=== PATIENT | female | born 1985 | race African-American/Black ===

== ENCOUNTER 2016-03-25 10:38 | Emergency (ER) | payer BC ==
[~2016-03-25] VITALS: Wt 108.0 kg
[~2016-03-25 10:38] MED LIST: ACYC800T PO; AMLO-147 PO; APIX5TAB PO; APR50 PO; ASPI81TA3 PO; CARV12.598 PO; CARV6.25 PO; CLON0.2T5 PO; DEXT1DRO6 OP; FURO-110 PO; HYDR-906 PO; LACR35O OP; MED4DP PO; MELO7.5O2 PO; NIFE60TA7 PO; ONDA4TAB35 PO; TRAM50TA2 PO
[2016-03-25] MEDS ORDERED: HYDROmorphONE 1 MG/ML SYG IV STA (10:53)
[2016-03-25] MEDS ORDERED: ASPI325T4 PO (11:41)
[2016-03-25] MEDS ORDERED: CARV12.598 PO (11:43)
[2016-03-25 11:47] LABS: BASOPHILS % 0.4 % (0.0-2.0); EOSINOPHILS # 0.2 10^3/ul (0.0-0.5); HEMATOCRIT 25.6 % (37.0-47.0); HEMOGLOBIN 8.6 g/dl (12.0-16.0); LYMPHOCYTES % 22.2 % (15.0-51.0); MEAN CORPUSCULAR HEMOGLOBIN 32.6 pg (29.0-33.0); MEAN CORPUSCULAR HGB CONC 33.7 g/dl (32.0-37.0); MEAN CORPUSCULAR VOLUME 96.8 fl (82.0-101.0); MEAN PLATELET VOLUME 8.6 fl (7.4-10.4); MONOCYTE # 0.4 10^3/ul (0.3-0.9); MONOCYTES % 9.3 % (0.0-11.0); NEUTROPHIL # 2.8 10^3/ul (1.6-7.5); NEUTROPHILS % 63.1 % (39.0-77.0); PLATELET COUNT 286 10^3/UL (140-440); RED BLOOD COUNT 2.65 10^6/ul (4.20-5.40); RED CELL DISTRIBUTION WIDTH 16.3 % (11.5-14.5); UNCORRECTED WBC 4.4 10^3/ul (4.8-10.8); WHITE BLOOD COUNT 4.4 10^3/ul (4.8-10.8)
[2016-03-25 11:50] LABS: CONDITION 1; LH ANALYZER COMMENTS 1
[2016-03-25 11:52] LABS: CREATININE 5.85 mg/dl (0.44-1.00); INR 1.09; PROTIME 14.1 Sec (12.2-14.2); PT RATIO 1.1
[2016-03-25 11:53] LABS: CALCIUM 9.1 mg/dl (8.4-10.2); PARTIAL THROMBOPLASTIN TIME 44.5 Sec (25.0-35.0)
[2016-03-25] MEDS ORDERED: TOPI25CA PO (11:53)
[2016-03-25] MEDS ORDERED: IODIXANOL LOCM 100 ML BTL ONE (12:10)
[2016-03-25] MEDS ORDERED: SOD CHLORIDE 0.9% 100 ML ONE (12:10)
--- NOTE | 2016-03-25 13:19 | RADRPT ---
PROCEDURE: CT angiogram of the chest with contrast. CLINICAL INDICATION: Chest Pain.R/O Dissection TECHNIQUE: CT scan of the chest with contrast was performed on a multidetector high-resolution CT scan. The patient was scanned following the uncomplicated intravenous administration of 90 ml Visi paque 320. Coronal and sagittal reformatted images were obtained from the axial source images. Stand adrien CT angiogram of the chest with contrast protocols were performed. The total exam CTDI equals 9.34 mGy and the total exam DLP equals 573.63 mGy-cm. One or more of the following dose reduction techniques were used: - Automated exposure control. - Adjustment of the mA and/or kV according to patient size. Use of iterative reconstruction technique. COMPARISON: None. FINDINGS: There is a right Aris catheter extending inferior to the right clavicle and into the junction of the right subclavian vein and brachial cephalic vein with the tip at the level of the mi d superior vena cava. There is mild soft tissue edema in the right supraclavicular region. The aor ta is unremarkable without evidence of aneurysm or dissection. The right and left subclavian arteri es are unremarkable. The brachial cephalic artery is unremarkable. Those portions of the right left common carotid arteries visualized are unremarkable. Those portions of the vertebral arteries visu alized are unremarkable. The central pulmonary arteries are unremarkable. No evidence of thoracic l ymphadenopathy. The heart is of normal size without pericardial effusion. No evidence of pleural e ffusions. No evidence of pneumothorax. There is no evidence of acute lung infiltrates or pulmonary nodules bilaterally. There is a pedunculated 2.5 cm posterior lateral mid to superior left renal cysts. The patient status post previous cholecystectomy without evidence of biliary ductal dilation . Images of the upper abdomen are otherwise unremarkable. The osseous structures are unremarkable. IMPRESSION: 1.) Catheter extending inferior to the right clavicle with the tip at the level of the mid superior vena cava as described above. Mild soft tissue swelling in the right supraclavicular region but no localized hematoma or abscess demonstrated. 2. No evidence of aortic dissection or aneurysm. 3. Central pulmonary arteries are unremarkable. 4. No evidence of thoracic effusions or pneumothorax. 5. No evidence of pulmonary nodules or acute infiltrates. 6. Left renal cyst. 7. Status post previous cholecystectomy. RPTAT:AAJJ Josh Alonzo Physician Date Time Electronically viewed and signed by Josh Alonzo Physician on 03/25/2016 13:19 /
--- NOTE | 2016-03-25 13:27 | ERD ---
ER Documentation Chief Complaint Date/Time DATE: 03/25/16 TIME: 13:24 Chief Complaint R SIDE KAILA INSERTION 2 DAYS AGO AND PAIN AT SITE AND SWELLING. HPI 30-year-old female presents to the emergency department complaining of chest pain and pain in the right neck. Patient just recently had a Kaila catheter inserted on the right side. It appears that she had An attempt at a right IJ insertion and has a hematoma at that site. She also has a subclavian Kaila in place. She has been having pain at the insertion site of the right IJ as well as the right side of the chest. She states it radiates to her back. She reports no fevers chills. She reports no vomiting. She states that she has been getting dialysis without difficulty. She reports that the bruising in her neck has not significantly increased in size. She has no difficulty speaking. ROS All systems reviewed and are negative except as per history of present illness. Medications Home Meds Active Scripts Amlodipine Besylate* (Amlodipine Besylate*) 10 Mg Tablet, 10 MG PO DAILY, #30 TAB Prov:FARZANA LERMA DO 02/06/16 Reported Medications Topiramate* (Topamax*) 25 Mg Cap.sprink, 25 MG PO BID, CAP 03/25/16 Carvedilol* (Coreg*) 12.5 Mg Tablet, 12.5 MG PO BID, #60 TAB 03/25/16 Aspirin* (Aspirin*) 325 Mg Tablet, 325 MG PO DAILY, TAB 03/25/16 Apixaban* (Eliquis*) 5 Mg Tablet, 10 MG PO QAM, TAB 02/21/16 Nifedipine* (Nifedipine ER*) 60 Mg Tablet.sa, 60 MG PO DAILY, TAB.SA 01/08/16 Furosemide* (Lasix*) 20 Mg Tablet, 20 MG PO DAILY, TAB 01/08/16 Hydralazine Hcl* (Hydralazine Hcl*) 50 Mg Tab, 50 MG PO Q12 Y for HYPERTENSION, #60 TAB 01/08/16 Clonidine Hcl* (Clonidine Hcl*) 0.2 Mg Tablet, 0.2 MG PO Q8, TAB 01/08/16 Discontinued Reported Medications Dextran 70/Hypromellose (Artificial Tears) 1 Each Droperette, 1 EACH OP TID Y for DRY EYES 02/21/16 Carvedilol* (Coreg*) 12.5 Mg Tablet, 12.5 MG PO BID, #60 TAB 01/08/16 Aspirin* (Aspirin* Chew) 81 Mg Tab.chew, 81 MG PO DAILY, TAB.CHEW 01/08/16 Discontinued Scripts Mineral Oil/Lanolin Oil (Lacri-Lube) 3.5 Gm Oint, 1 APPLIC OP 5 TIMES DAILY, #1 EA Prov:MAHSA TURNERSTOLOS A. DO 02/21/16 Methylprednisolone* (Medrol* DOSE PACK) 4 Mg/Dose-Pack Tab.ds.pk, 4 MG PO . DIRECTED for 10 Days, PACKET Prov:SEANOSMAHSASTOLOS A. DO 02/21/16 Acyclovir* (Acyclovir*) 800 Mg Tablet, 800 MG PO QID for 7 Days, TAB Prov:ISABEL TURNERS A. DO 02/21/16 Tramadol HCl (Tramadol HCl) 50 Mg Tablet, 50 MG PO Q6, #20 TAB Prov:YUEISABELRylee A. DO 02/21/16 Tramadol HCl (Tramadol HCl) 50 Mg Tablet, 50 MG PO Q6 Y for PAIN, #14 TAB Prov:FARZANA LERMA DO 02/06/16 Hydrocodone/Acetaminophen (Hume 5-325 Tablet) 1 Each Tablet, 1 EACH PO Q6, #10 TAB Prov:FARZANA LERMA DO 02/06/16 Meloxicam* (Mobic*) 7.5 Mg/5 Ml Oral.susp, 7.5 MG PO DAILY for PAIN AND/OR INFLAMMATION, #15 ML Prov:YANNI DIALLO MD 08/22/15 Ondansetron Hcl* (Zofran* ODT) 4 mg -ODT Tab.disper, 4 MG PO Q6 Y for NAUSEA AND /OR VOMITING, #30 TAB Prov:ARTUR RICCI MD 06/20/15 Hydrocodone Bit-Acetaminophen (Hume) 5-325 Mg Tablet, 1 TAB PO q8h Y for PAIN, #1 TAB Prov:DEEPA TOPETE MD 04/30/15 Nifedipine* (Nifedipine ER*) 60 Mg Tablet.sa, 60 MG PO BID, #60 TAB.SA Prov:DEEPA TOPETE MD 04/30/15 Carvedilol* (Coreg*) 6.25 Mg Tablet, 6.25 MG PO BID, #60 TAB Prov:DEEPA TOPETE MD 04/30/15 Aspirin (Aspirin) 81 Mg Chew, 81 MG PO DAILY, #100 TAB Prov:DEEPA TOPETE MD 04/30/15 Allergies Allergies: Coded Allergies: No Known Allergy (Verified , 03/25/16) PMhx/Soc History of Surgery: Yes (L Arm AV Fistula,HD Cath Placed) Anesthesia Reaction: No Hx Neurological Disorder: No Hx Respiratory Disorders: No Hx Cardiac Disorders: Yes (HTN) Hx Psychiatric Problems: No Hx Miscellaneous Medical Probl: Yes (ESRD) Hx Alcohol Use: No Hx Substance Use: No Hx Tobacco Use: Yes Smoking Status: Current every day smoker FmHx Noncontributory for chief complaint Physical Exam Vitals Vital Signs Date Time Temp Pulse Resp B/P Pulse Ox O2 Delivery O2 Flow Rate FiO2 03/25/16 10:41 98.5 88 22 177/102 98 Physical Exam GENERAL: The patient is well developed and appropriate for usual state of health in no apparent distress HEENT: Pupils equal, round, and reactive to light. EOMI. There is no scleral icterus. NECK: C-spine is soft and supple, there is no meningismus. There is no cervical lymphadenopathy. There is a hematoma on the right side of the neck consistent with an area of likely insertion of an IJ line. No evidence of infection or abscess LUNGS: Clear to auscultation bilaterally. There are no rales, wheezes or rhonchi. There is a right subclavian tunneled Kaila catheter in place without evidence of infection or bleeding HEART: Regular rate and rhythm, no murmurs, clicks, rubs or gallops. ABDOMEN: Soft, non-tender, non-distended. There are bowel sounds in all four quadrants. No rebound or guarding. EXTREMITIES: There is no peripheral cyanosis or edema. No focal swelling or erythema. NEURO: The patient moves all four extremities with 5/5 strength. Cranial nerves II - XII are intact. Normal gait. Alert and oriented SKIN: There is no apparent rash or petechiae. HEME/LYMPHATIC: There is no evidence of excessive bruising or lymphedema. PSYCHIATRIC: The patient does not appear anxious or depressed. Result Diagram: 03/25/16 1125 03/25/16 1125 Results 24 hrs Laboratory Tests Test 03/25/16 11:25 Activated Partial Thromboplast Time 44.5Sec Anion Gap 18 Basophils # 0.010^3/ul Basophils % 0.4% Blood Morphology Comment Blood Urea Nitrogen 50mg/dl Calcium Level 9.1mg/dl Carbon Dioxide Level 27mmol/L Chloride Level 101mmol/L Creatinine 5.85mg/dl Eosinophils # 0.210^3/ul Eosinophils % 5.0% Glucose Level 116mg/dl Hematocrit 25.6% Hemoglobin 8.6g/dl INR International Normalized Ratio 1.09 Lymphocytes # 1.010^3/ul Lymphocytes % 22.2% Mean Corpuscular Hemoglobin 32.6pg Mean Corpuscular Hemoglobin Concent 33.7g/dl Mean Corpuscular Volume 96.8fl Mean Platelet Volume 8.6fl Monocytes # 0.410^3/ul Monocytes % 9.3% Neutrophils # 2.810^3/ul Neutrophils % 63.1% Nucleated Red Blood Cells # 0.010^3/ul Nucleated Red Blood Cells % 0.0/100WBC Platelet Count 67946^3/UL Potassium Level 4.0mmol/L Prothrombin Time 14.1Sec Prothrombin Time Ratio 1.1 Red Blood Count 2.6510^6/ul Red Cell Distribution Width 16.3% Sodium Level 142mmol/L White Blood Count 4.410^3/ul Current Medications Medications (Trade) Dose Ordered Sig/Belkys Route PRN Reason Start Time Stop Time Status Last Admin Dose Admin Hydromorphone HCl (Dilaudid) 1 mg ONCE STAT IV 03/25/16 10:53 03/25/16 10:54 DC 03/25/16 11:33 IV Flush 10 ml 10 ml STK-MED ONCE .ROUTE 03/25/16 12:10 03/25/16 12:11 DC Sodium Chloride (NS) 100 ml @ ud STK-MED ONCE .ROUTE 03/25/16 12:10 03/25/16 12:11 DC Iodixanol (Visipaque Locm) 100 ml STK-MED ONCE .ROUTE 03/25/16 12:10 03/25/16 12:11 DC Procedures/MDM Patient was taken to a room, seen and evaluated. Comfort measures were initiated. Diagnostic tests were ordered and reviewed. 3 LEAD RHYTHM STRIP: Normal sinus rhythm without ectopy EK lead EKG reviewed by myself: Normal Sinus Rhythm Normal [place] and intervals No ST elevation, depression, or T wave inversion Impression: Normal EKG RADIOLOGY: reviewed with the radiologist CONSULTATION: Dr. Sorenson was called, but no return phone call. REEVALUATION: Hematoma remained without evidence of infection or expansion. Patient remains clinically stable MEDICAL DECISION MAKIN-year-old female presents the emergency department with pain in her chest and neck after insertion of a Kaila catheter. This time, the CT scan does not demonstrate evidence of abscess or significant expanding hematoma or other significant vascular injury like dissection. All of which have been considered but ruled out. Patient appears to be otherwise clinically well. She is having pain there but is also has a significant chronic pain issue. At this time, she is otherwise clinically stable and seems to be appropriate for outpatient care. Departure Diagnosis: Primary Impression: Hematoma Condition: Stable Patient Instructions: Dialysis Access, Hematoma Additional Instructions: See your doctor for follow-up as discussed. Take a copy of your test results, if appropriate, to this follow-up visit. See your doctor or return here if your symptoms do not improve as expected. At any time, please return to the emergency department for any change or worsening in her symptoms. AMNA ALLEN Mar 25, 2016 13:27
--- NOTE | 2016-03-25 13:35 | RADRPT ---
PROCEDURE: CT neck with contrast. CLINICAL INDICATION: Chest Pain.R/O Dissection TECHNIQUE: CT scan of the neck with contrast was performed on a multidetector high-resolution CT s can. The patient was scanned following the uncomplicated intravenous administration of 90 ml Visipa que 320. Coronal and sagittal reformatted images were obtained from the axial source images. Standar d CT scan of the neck with contrast protocols were performed. The total exam CTDI equals 9.34 mGy and the total exam DLP equals 573.63 mGy-cm. One or more of the following dose reduction techniques were used: - Automated exposure control. - Adjustment of the mA and/or kV according to patient size. Use of iterative reconstruction technique. COMPARISON: CT angiogram of the chest done same day FINDINGS: A right Aris catheter is present extending caudal to the medial right clavicle and extending into the region of the junction of the right subclavian vein and brachial cephalic vein with the tip loc alized within the mid superior vena cava all on the CT angiogram of the chest. There is mild soft t issue edema involving the right supraclavicular region but no localized hematoma. There is no evide nce of extravasation of contrast. The right left jugular veins appear unremarkable. The right left common carotid, internal carotid and external carotid arteries appear unremarkable. The thyroid gl and enhances homogeneously without focal lesions. The parotid glands and submandibular glands are s ymmetrical without focal lesions. The nasopharynx, the nasopharynx, oropharynx and hypopharynx are unremarkable. The airway visualizes unremarkable. No evidence of cervical lymphadenopathy. The os seous structures are unremarkable. There is an air-fluid levels within the right sphenoid sinus. The remainder of the paranasal sinuses visualized are unremarkable. IMPRESSION: 1. Right Aris catheter endplates as described above. 2. Mild soft tissue edema involving the right supraclavicular soft tissues but no evidence of hemat elpidio or extravasation of contrast. 3. No evidence of cervical masses or lymphadenopathy. 4. Small air-fluid level within the right sphenoid sinus. 5. Recommend reference is CT angiogram of the chest study done the same day. RPTAT:AAJJ B Alonzo, Physician Date Time Electronically viewed and signed by Josh Alonzo Physician on 03/25/2016 13:35 BM/
[2016-03-25 13:41] VITALS: BP 174/100; PULSE 77; RESP 20; TEMP 98.5
== END 2016-03-25 13:43 | disposition home or self-care (01) ==
LOC: E/R 10:38
DX: T85.898A Other specified complication of other internal prosthetic devices, implants and grafts, initial encounter (principal); I12.0 Hypertensive chronic kidney disease with stage 5 chronic kidney disease or end stage renal disease; N18.6 End stage renal disease; F17.210 Nicotine dependence, cigarettes, uncomplicated; Y82.8 Other medical devices associated with adverse incidents; Z79.01 Long term (current) use of anticoagulants; Z79.82 Long term (current) use of aspirin; Z99.2 Dependence on renal dialysis
CPT/HCPCS: 36415; 70491; 71260; 80048; 85025; 85610; 85730; 96374; 99285; J1170; Q9967; Z7610

== ENCOUNTER 2016-04-15 01:36 | Emergency (ER) | payer SELFPAY ==
[~2016-04-15] VITALS: Ht 167.6 cm; Wt 107.5 kg
[~2016-04-15 01:36] MED LIST changes: -ACYC800T PO; +ASPI325T4 PO; -ASPI81TA3 PO; -CARV6.25 PO; -DEXT1DRO6 OP; -HYDR-906 PO; -LACR35O OP; -MED4DP PO; -MELO7.5O2 PO; -ONDA4TAB35 PO; +TOPI25CA PO; -TRAM50TA2 PO
[2016-04-15 01:40] VITALS: Ht 167.6 cm; Wt 107.5 kg
== END 2016-04-15 04:53 | disposition left against medical advice (07) ==
LOC: E/R 01:36
DX: Z53.21 Procedure and treatment not carried out due to patient leaving prior to being seen by health care provider (principal)

== ENCOUNTER 2016-12-07 07:33 | Inpatient (IN) | payer BC ==
[~2016-12-07] VITALS: Ht 165.1 cm; Wt 88.9 kg
[~2016-12-07 07:33] MED LIST changes: -APR50 PO; +HYDR-3672 PO
[2016-12-07] MEDS ORDERED: HYDROmorphONE 0.5 MG/0.5 ML SYG IV STA ×2 (08:13→11:12)
[2016-12-07] MEDS ORDERED: ONDANSETRON 4 MG INJ IV STA (08:13)
[2016-12-07] MEDS ORDERED: SOD CHLORIDE 0.9% 500 ML IV STA (08:13)
[2016-12-07] MEDS ORDERED: LINEZOLID 600 MG/D5W (PMX) 300 ML IVPB STA (08:13)
[2016-12-07] MEDS ORDERED: CEFEPIME 2GM/50 ML (PMX) 50 ML IVPB STA (08:13)
--- NOTE | 2016-12-07 08:29 | ERD ---
ER Documentation Chief Complaint Chief Complaint llq pain rad into pelvic area and lle, dialysis cath in l. groin area. HPI 31-year-old female history of end-stage renal disease on dialysis who presents to the emergency room with pain to the left groin site. The patient is a left groin tunneled Vas-Cath where she receives her dialysis. She notes over the past 24-48 hours the area has become firm, indurated and erythematous. The patient is describing 6 out of 10 throbbing pain to that area. She denies any fevers or chills, no chest pain or shortness of breath. ROS All systems reviewed and are negative except as per history of present illness. Medications Home Meds Reported Medications Labetalol Hcl* (Labetalol Hcl*) 100 Mg Tablet, 100 MG PO BID, TAB 12/07/16 Sevelamer Hcl* (Renagel*) 800 Mg Tablet, 800 MG PO WITH MEALS, TAB 12/07/16 Aspirin* (Aspirin* Chew) 81 Mg Tab.chew, 81 MG PO DAILY, TAB.CHEW 12/07/16 Topiramate* (Topamax*) 25 Mg Cap.sprink, 25 MG PO BID, CAP 03/25/16 Carvedilol* (Coreg*) 12.5 Mg Tablet, 12.5 MG PO BID, #60 TAB 03/25/16 Nifedipine* (Nifedipine ER*) 60 Mg Tablet.sa, 60 MG PO DAILY, TAB.SA 01/08/16 Furosemide* (Lasix*) 20 Mg Tablet, 20 MG PO DAILY, TAB 01/08/16 Hydralazine Hcl* (Hydralazine Hcl*) 50 Mg Tab, 50 MG PO Q12 Y for HYPERTENSION, #60 TAB 01/08/16 Clonidine Hcl* (Clonidine Hcl*) 0.2 Mg Tablet, 0.2 MG PO BID, TAB 01/08/16 Discontinued Reported Medications Aspirin* (Aspirin*) 325 Mg Tablet, 325 MG PO DAILY, TAB 03/25/16 Apixaban* (Eliquis*) 5 Mg Tablet, 10 MG PO QAM, TAB 02/21/16 Discontinued Scripts Amlodipine Besylate* (Amlodipine Besylate*) 10 Mg Tablet, 10 MG PO DAILY, #30 TAB Prov:FARZANA LERMA DO 02/06/16 Allergies Allergies: Coded Allergies: vancomycin (Verified Allergy, Mild, 12/07/16) PMhx/Soc History of Surgery: Yes (L Arm AV Fistula,HD Cath Placed) Anesthesia Reaction: No Hx Neurological Disorder: No Hx Respiratory Disorders: No Hx Cardiac Disorders: Yes (HTN) Hx Psychiatric Problems: No Hx Miscellaneous Medical Probl: Yes (ESRD) Hx Alcohol Use: No Hx Substance Use: No Hx Tobacco Use: Yes Smoking Status: Current every day smoker FmHx Family History: diabetes Physical Exam Vitals Vital Signs Date Time Temp Pulse Resp B/P Pulse Ox O2 Delivery O2 Flow Rate FiO2 12/07/16 10:34 83 18 175/91 99 Room Air 12/07/16 08:45 Nasal Cannula 2 12/07/16 07:41 99.2 86 20 167/93 98 Physical Exam General: Well developed, well nourished, no acute distress Head: Normocephalic, atraumatic. Eyes: Pupils equally reactive, EOM intact ENT: Moist mucous membranes Neck: Supple, no lymphadenopathy Respiratory: Lungs clear bilaterally, no distress Cardiovascular: RRR, no murmurs, rubs, or gallops Abdominal: Soft, non-tender, non-distended, no peritoneal signs : Deferred MSK: No edema, no unilateral swelling, 5/5 strength Neurologic: Alert and oriented, moving all extremities, normal speech, no focal weakness, no cerebellar signs Skin: The patient's a vascular catheter site to the right groin has surrounding induration and erythema and warmth and tenderness. No fluctuance, mild inguinal lymphadenopathy is palpated. Psych: Normal mood Result Diagram: 12/07/16 0913 12/07/16 0914 Results 24 hrs Laboratory Tests Test 12/07/16 09:13 12/07/16 09:14 White Blood Count 12.210^3/ul Red Blood Count 2.8310^6/ul Hemoglobin 8.1g/dl Hematocrit 25.6% Mean Corpuscular Volume 90.5fl Mean Corpuscular Hemoglobin 28.6pg Mean Corpuscular Hemoglobin Concent 31.6g/dl Red Cell Distribution Width 17.5% Platelet Count 74779^3/UL Mean Platelet Volume 11.2fl Neutrophils % 84.0% Lymphocytes % 4.3% Monocytes % 9.1% Eosinophils % 1.3% Basophils % 0.3% Nucleated Red Blood Cells % 0.0/100WBC Neutrophils # 10.210^3/ul Lymphocytes # 0.510^3/ul Monocytes # 1.110^3/ul Eosinophils # 0.210^3/ul Basophils # 0.010^3/ul Nucleated Red Blood Cells # 0.010^3/ul Prothrombin Time 14.5Sec Prothrombin Time Ratio 1.1 INR International Normalized Ratio 1.13 Activated Partial Thromboplast Time 30.8Sec Lactic Acid Level 0.7mmol/L Sodium Level 137mmol/L Potassium Level 4.4mmol/L Chloride Level 104mmol/L Carbon Dioxide Level 17mmol/L Anion Gap 20 Blood Urea Nitrogen 83mg/dl Creatinine 13.38mg/dl Glucose Level 91mg/dl Calcium Level 7.8mg/dl Total Bilirubin 0.0mg/dl Direct Bilirubin 0.00mg/dl Indirect Bilirubin 0.0mg/dl Aspartate Amino Transf (AST/SGOT) 17IU/L Alanine Aminotransferase (ALT/SGPT) 27IU/L Alkaline Phosphatase 74IU/L Troponin I 0.041ng/ml Total Protein 7.1g/dl Albumin 3.4g/dl Globulin 3.70g/dl Albumin/Globulin Ratio 0.91 Current Medications Medications (Trade) Dose Ordered Sig/Belkys Route PRN Reason Start Time Stop Time Status Last Admin Dose Admin Cefepime HCl (Maxipime 2gm/50 ml (Pmx)) 50 ml @ 100 mls/hr ONCE STAT IVPB 12/07/16 08:13 12/07/16 08:42 DC 12/07/16 09:21 Hydromorphone HCl (Dilaudid) 0.5 mg ONCE STAT IV 12/07/16 08:13 12/07/16 08:17 DC 12/07/16 08:50 Ondansetron HCl 4 mg 4 mg ONCE STAT IV 12/07/16 08:13 12/07/16 08:17 DC 12/07/16 08:51 Linezolid 300 ml @ 300 mls/hr ONCE STAT IVPB 12/07/16 08:13 12/07/16 09:12 DC 12/07/16 10:18 Sodium Chloride (NS) 500 ml @ 500 mls/hr Q1H STAT IV 12/07/16 08:13 12/07/16 09:12 DC 12/07/16 08:51 Procedures/MDM EKG, MONITORS, & DIAGNOSTIC IMAGING: EKG: I reviewed and interpreted a 12-lead EKG. Rhythm: Normal sinus rhythm Ectopy: None Intervals: No abnormalities ST segments: No elevations or depressions T waves: No contiguous inversions Chest x-ray: I reviewed and interpreted a 1 view of the chest Mediastinum: No enlargement Cardiac silhouette: No cardiomegaly Airspace: Clear lung ridley bilaterally without evidence of pneumothorax Bones: No evidence of fracture LAB INTERPRETATION: Leukocytosis, end-stage renal disease but no hyperkalemia MEDICAL DECISION MAKING: The patient on clinical exam very clearly has what appears to be localized cellulitis surrounding the vascular catheter site. The patient will require blood cultures empiric antibiotics. She will likely require replacement and removal of the vascular catheter. I will direct this with interventional radiology and the patient's metal trimmer. She has seen Dr. Knox in the past. The patient's clinical exam is not consistent with active bleeding, AV fistula or pseudoaneurysm. Inpatient imaging may be necessary but no emergent imaging in the ER is necessary for this site. Given the erythema warmth and tenderness this is more consistent with cellulitis. The patient is hemodynamically stable without fever in the emergency department. Sepsis screening will be initiated but I will be careful with fluids given the patient's end-stage renal disease and dialysis. I would not like to volume overload the patient. Verbalizes an allergy to vancomycin. ER COURSE: Blood cultures were taken and the patient was given linezolid and cefepime. Pain medication provided. Gentle fluids initiated. The patient does not meet SIRS criteria or severe sepsis criteria in the emergency department. The patient was evaluated by Dr. Knox who will arrange for ultrasound and possible replacement of vascular catheter As well as dialysis. I kept the patient and/or family informed of laboratory and diagnostic imaging results throughout the emergency room course. DISPOSITION PLAN: Medical surgical admission CONSULTATION: Accepting care team and consultations: I discussed the current laboratory data, diagnostic imaging and emergency care provided. Admitting team: Dr. Brian Admitting team indication: Insurance directed Consulting services: Crisis Mental Health Therapist Dr. Knox Departure Diagnosis: Primary Impression: Infection of vascular catheter Encounter type: initial encounter Qualified Code: T82.7XXA - Infection of vascular catheter, initial encounter Additional Impressions: End stage renal disease on dialysis Anemia Anemia type: unspecified type Qualified Code: D64.9 - Anemia, unspecified type Condition: Stable ARTUR RICCI, MD Dec 07, 2016 08:29
[2016-12-07] MEDS ORDERED: ASPI81TA3 PO (08:38)
[2016-12-07] MEDS ORDERED: SEVE800T10 PO (08:39)
[2016-12-07] MEDS ORDERED: LABE100T3 PO (08:40)
--- NOTE | 2016-12-07 08:56 | RADRPT ---
PROCEDURE: Chest x-ray CLINICAL INDICATION: Pain. TECHNIQUE: One-view frontal. COMPARISON: 06/20/2015 FINDINGS: The cardiac silhouette is normal. No infiltrates are noted. No hilar abnormalities are identified. No pneumothorax or pleural effusions are visualized. IMPRESSION: 1. No active cardiopulmonary changes. RPTAT: HGSG .Moiz Davila MD, MD Date Time Electronically viewed and signed by .Moiz Davila MD, MD on 12/07/2016 08:55 .G/
[2016-12-07 09:32] LABS: ABNORMAL IP MESSAGE 1; BASOPHILS % 0.3 % (0.0-2.0); EOSINOPHILS # 0.2 10^3/ul (0.0-0.5); EOSINOPHILS % 1.3 % (0.0-7.0); HEMATOCRIT 25.6 % (37.0-47.0); HEMOGLOBIN 8.1 g/dl (12.0-16.0); LYMPHOCYTES # 0.5 10^3/ul (0.8-2.9); LYMPHOCYTES % 4.3 % (15.0-51.0); MEAN CORPUSCULAR HEMOGLOBIN 28.6 pg (29.0-33.0); MEAN CORPUSCULAR HGB CONC 31.6 g/dl (32.0-37.0); MEAN CORPUSCULAR VOLUME 90.5 fl (82.0-101.0); MEAN PLATELET VOLUME 11.2 fl (7.4-10.4); MONOCYTE # 1.1 10^3/ul (0.3-0.9); MONOCYTES % 9.1 % (0.0-11.0); NEUTROPHIL # 10.2 10^3/ul (1.6-7.5); PLATELET COUNT 135 10^3/UL (140-415); RED BLOOD COUNT 2.83 10^6/ul (4.20-5.40); RED CELL DISTRIBUTION WIDTH 17.5 % (11.5-14.5); WHITE BLOOD COUNT 12.2 10^3/ul (4.8-10.8)
[2016-12-07 09:48] LABS: INR 1.13; PROTIME 14.5 Sec (12.2-14.2); PT RATIO 1.1
[2016-12-07 09:49] LABS: PARTIAL THROMBOPLASTIN TIME 30.8 Sec (25.0-35.0)
[2016-12-07 09:52] LABS: ALBUMIN 3.4 g/dl (3.3-4.9); ALBUMIN/GLOBULIN RATIO 0.91; CALCIUM 7.8 mg/dl (8.4-10.2); CREATININE 13.38 mg/dl (0.44-1.00); POTASSIUM 4.4 mmol/L (3.5-5.1); TOTAL PROTEIN 7.1 g/dl (6.1-8.1)
[2016-12-07 10:18] LABS: TROPONIN-I 0.041 ng/ml (0.00-0.12)
--- NOTE | 2016-12-07 10:53 | RADRPT ---
PROCEDURE: Ultrasound of the soft tissues of the left inguinal region. CLINICAL INDICATION: Painful lesion in the left inguinal region. Dialysis catheter and left femora l vein.. TECHNIQUE: High-resolution sonography of the left inguinal region at the site of the painful lesio n was performed in the axial and sagittal planes. COMPARISON: None FINDINGS: There is a dialysis catheter in the left inguinal region with surrounding fluid. The thickness of th e surrounding fluid is approximately 0.5 cm. There is no other fluid collection or mass. IMPRESSION: 1. Dialysis catheter in the left inguinal region. There is surrounding fluid with a thickness of ap proximately 0.5 cm. The fluid may be due to seroma, hematoma, or abscess. Clinical correlation advis ed. 2. Any further management regarding the painful lesion should be based on clinical grounds. RPTAT: QQ .Qasim Watkins MD, MD Date Time Electronically viewed and signed by .Qasim Watkins MD, MD on 12/07/2016 10:52 .R/
[2016-12-07] MEDS ORDERED: MAGNESIUM HYDROXIDE 30ML CUP PO PRN (11:00)
[2016-12-07] MEDS ORDERED: ONDANSETRON 4 MG INJ IV PRN (11:00)
[2016-12-07] MEDS ORDERED: NACL 0.9% 3 ML SYG IV SCH (11:00)
[2016-12-07] MEDS ORDERED: ACETAMINOPHEN 325 MG TAB PO PRN ×2 (11:00)
--- NOTE | 2016-12-07 12:12 | HP ---
Date/Time of Note Date/Time of Note DATE: 12/07/16 TIME: 12:08 Assessment/Plan VTE Prophylaxis VTE Prophylaxis Intervention: SCD's Assessment/Plan Assessment/Plan 31 yo F with ESRD on HD here for L groin pain, found to have HD line tunnel infection PLAN vascular surgery consult for line removal and placement of a new line empiric dapto (blood cultures in process, pt with vanc allergy) renal on consult for HD cont home meds HPI/ROS Admit Date/Time Admit Date/Time Hx of Present Illness CC L groin pain and swelling x 2 days HPI 31 yo F with ESRD on HD, HTN presents with pain in L groin x 2 days. No fevers/ chills. Reports discharge started from L groin earlier today. Line has been working well. PMH/Family/Social Social History lives in the community Smoking Status: Current every day smoker Exam/Review of Systems Vital Signs Vitals Vital Signs Date Time Temp Pulse Resp B/P Pulse Ox O2 Delivery O2 Flow Rate FiO2 12/07/16 12:01 87 18 155/98 98 Room Air 12/07/16 08:45 2 12/07/16 07:41 99.2 Exam Exam NAD EOMI MMM no mrg lungs clear abd soft no rashes no edema L HD groin site wrapped, +swelling along path of HD line in upper thigh, +1 cm aperture with purulent drainage in groin fold labs noted US with tunnel infection Labs Result Diagram: 12/07/1691212/07/16 0914 Medications Medications Current Medications Acetaminophen (Tylenol Tab) 650 mg Q6H PRN PO PAIN LEVEL 1-3 OR FEVER; Start 12/07/16 at 11:00 Acetaminophen/ Hydrocodone Bitart ([place] (5/325)) 1 tab Q6H PRN PO MODERATE PAIN LEVEL 4-6; Start 12/07/16 at 11:00 Docusate Sodium (Colace) 100 mg Q12H PRN PO CONSTIPATION; Start 12/07/16 at 11: 00 Magnesium Hydroxide (Milk Of Mag) 30 ml DAILY PRN PO CONSTIPATION; Start at 11:00 Bisacodyl (Dulcolax) 5 mg DAILY PRN PO CONSTIPATION; Start 12/07/16 at 11:00 Enoxaparin Sodium (Lovenox) 30 mg DAILY@12 SC ; Start 12/07/16 at 12:00 Aspirin (Aspirin) 81 mg DAILY PO ; Start 12/08/16 at 09:00 Carvedilol (Coreg) 12.5 mg BID PO ; Start 12/07/16 at 21:00 Clonidine (Catapres) 0.2 mg BID PO ; Start 12/07/16 at 21:00 Furosemide (Lasix) 20 mg DAILY PO ; Start 12/08/16 at 09:00 Labetalol HCl (Normodyne) 100 mg BID PO ; Start 12/07/16 at 21:00; Status Future Hold Nifedipine (Procardia Xl) 60 mg DAILY PO ; Start 12/08/16 at 09:00 Topiramate 25 mg 25 mg BID PO ; Start 12/07/16 at 21:00 Daptomycin/Sodium Chloride (Cubicin/NS) 100 ml @ 200 mls/hr Q48H IVPB ; Start 12/07/16 at 13:00 BHARAT BLACK MD Dec 07, 2016 12:12
--- NOTE | 2016-12-07 12:13 | CONS ---
Date/Time of Note Date/Time of Note DATE: 12/07/16 TIME: 12:10 Assessment/Plan Assessment/Plan Chief Complaint/Hosp Course ESRD HTN SEPSIS LEFT GROIN MASS POSS SEROMA/ABSCESS/HEMATOMA PLAN US GROIN HD SURGERY CONSULT TO DRAIN ABSCESS ANTIBIOTIC Problems: Consultation Date/Type/Reason Admit Date/Time renal [id number] Initial Consult Date Exam/Review of Systems Vital Signs Vitals Vital Signs Date Time Temp Pulse Resp B/P Pulse Ox O2 Delivery O2 Flow Rate FiO2 12/07/16 12:01 87 18 155/98 98 Room Air 12/07/16 08:45 2 12/07/16 07:41 99.2 Exam Neck: supple Respiratory: clear to auscultation Cardiovascular: regular rate and rhythm Gastrointestinal: bowel sounds (+), soft Musculoskeletal: range of motion (pain left groin) Extremities: edema (+), other (left groin mass+), tenderness (+) Neurological: DIRECTOR OF GRADUATE ADMISSIONS II-XII intact Results Result Diagram: 12/07/16 0913 12/07/16 0914 Results 24 hrs Laboratory Tests Test 12/07/16 09:13 12/07/16 09:14 White Blood Count 12.2 #H Red Blood Count 2.83 L Hemoglobin 8.1 L Hematocrit 25.6 L Mean Corpuscular Volume 90.5 Mean Corpuscular Hemoglobin 28.6 L Mean Corpuscular Hemoglobin Concent 31.6 L Red Cell Distribution Width 17.5 H Platelet Count 135 L Mean Platelet Volume 11.2 #H Neutrophils % 84.0 H Lymphocytes % 4.3 L Monocytes % 9.1 Eosinophils % 1.3 Basophils % 0.3 Nucleated Red Blood Cells % 0.0 Neutrophils # 10.2 H Lymphocytes # 0.5 L Monocytes # 1.1 H Eosinophils # 0.2 Basophils # 0.0 Nucleated Red Blood Cells # 0.0 Prothrombin Time 14.5 H Prothrombin Time Ratio 1.1 INR International Normalized Ratio 1.13 Activated Partial Thromboplast Time 30.8 Lactic Acid Level 0.7 Sodium Level 137 Potassium Level 4.4 Chloride Level 104 Carbon Dioxide Level 17 L Anion Gap 20 H Blood Urea Nitrogen 83 H Creatinine 13.38 H Glucose Level 91 Calcium Level 7.8 L Total Bilirubin 0.0 L Direct Bilirubin 0.00 Indirect Bilirubin 0.0 Aspartate Amino Transf (AST/SGOT) 17 Alanine Aminotransferase (ALT/SGPT) 27 Alkaline Phosphatase 74 Troponin I 0.041 Total Protein 7.1 Albumin 3.4 Globulin 3.70 H Albumin/Globulin Ratio 0.91 Medications Medications Current Medications Acetaminophen (Tylenol Tab) 650 mg Q6H PRN PO PAIN LEVEL 1-3 OR FEVER; Start 12/07/16 at 11:00 Acetaminophen/ Hydrocodone Bitart ([place] (5/325)) 1 tab Q6H PRN PO MODERATE PAIN LEVEL 4-6; Start 12/07/16 at 11:00 Docusate Sodium (Colace) 100 mg Q12H PRN PO CONSTIPATION; Start 12/07/16 at 11: 00 Magnesium Hydroxide (Milk Of Mag) 30 ml DAILY PRN PO CONSTIPATION; Start at 11:00 Bisacodyl (Dulcolax) 5 mg DAILY PRN PO CONSTIPATION; Start 12/07/16 at 11:00 Enoxaparin Sodium (Lovenox) 30 mg DAILY@12 SC ; Start 12/07/16 at 12:00 Aspirin (Aspirin) 81 mg DAILY PO ; Start 12/08/16 at 09:00 Carvedilol (Coreg) 12.5 mg BID PO ; Start 12/07/16 at 21:00 Clonidine (Catapres) 0.2 mg BID PO ; Start 12/07/16 at 21:00 Furosemide (Lasix) 20 mg DAILY PO ; Start 12/08/16 at 09:00 Labetalol HCl (Normodyne) 100 mg BID PO ; Start 12/07/16 at 21:00; Status Future Hold Nifedipine (Procardia Xl) 60 mg DAILY PO ; Start 12/08/16 at 09:00 Topiramate 25 mg 25 mg BID PO ; Start 12/07/16 at 21:00 Daptomycin/Sodium Chloride (Cubicin/NS) 100 ml @ 200 mls/hr Q48H IVPB ; Start 12/07/16 at 13:00 MKIE VEGA MD Dec 07, 2016 12:13
[2016-12-07 12:37] VITALS: BP 170/98; RESP 18
[2016-12-07] MEDS ORDERED: DAPTOMYCIN 540 MG in SOD CHLORIDE 0.9% 100 ML IVPB SCH (13:00)
[2016-12-07 13:05] LABS: ADD UMIC YES; UR ASCORBIC ACID NEGATIVE (NEGATIVE); UR BACTERIA FEW /HPF (NONE SEEN); UR BILIRUBIN (Dip) NEGATIVE (NEGATIVE); UR BLOOD (Dip) 1+ mg/dL (NEGATIVE); UR CLARITY CLEAR (CLEAR); UR COLOR YELLOW (YELLOW); UR GLUCOSE (Dip) NEGATIVE (NEGATIVE); UR KETONES (Dip) NEGATIVE (NEGATIVE); UR LEUKOCYTE ESTERASE (Dip) 1+ Leu/ul (NEGATIVE); UR NITRITE (Dip) NEGATIVE (NEGATIVE); UR RBC 3 /HPF (0-5); UR TOTAL PROTEIN (Dip) 2+ mg/dl (NEGATIVE); UR UROBILINOGEN (Dip) NEGATIVE (NEGATIVE)
[2016-12-07 13:21] VITALS: Ht 165.1 cm; Wt 88.9 kg
[2016-12-07] MEDS: HYDROCODONE/APAP (5/325) TAB PO PRN (13:38)
[2016-12-07] MEDS: SEVELAMER 800 MG TAB PO SCH ×2 (13:38→20:05)
[2016-12-07] MEDS: ENOXAPARIN 30 MG/0.3 ML SYG SC SCH (13:42)
[2016-12-07] MEDS ORDERED: traMADol 50 MG TAB PO PRN (14:00)
--- NOTE | 2016-12-07 14:01 | CONS ---
DATE OF ADMISSION: 12/07/2016 DATE OF CONSULTATION: TYPE OF CONSULTATION: Nephrology. HISTORY OF PRESENT ILLNESS: Thank you, Dr. Arnie Madrigal and Dr. Brian, for kindly asking me to see this patient in nephrology consultation. The patient is a 31-year-old female who has a history of endstage renal disease, history of hypertension, history of left groin dialysis catheter placement. The patient gets hemodialysis through the left groin catheter, presented with pain and also left groin pain. The patient's WBC 12.2, hematocrit 25.6, platelet count of 135. The patient's potassium 4.4, BUN 83, creatinine 13.38. The patient's ultrasound of the lower extremity was done and shows dialysis catheter in the left groin, surrounding fluid with thickness of cm. This fluid may be due to seroma, hematoma or abscess. The patient's chest x-ray shows no acute cardiopulmonary disease. The patient is being admitted for further management. PAST MEDICAL HISTORY: Positive for ESRD, hypertension. The patient has history of anemia, history of multiple AV graft revision thrombectomy and AV graft surgery. The patient also has a history of CVA, history of [place] palsy. ALLERGY HISTORY: VANCOMYCIN. SOCIAL HISTORY: She denies any alcohol or drug abuse at this point. MEDICATION HISTORY: Currently, the patient is on: 1. Aspirin. 2. Coreg. 3. Clonidine. 4. Lasix. 5. Hydralazine. 6. Labetalol. 7. Nifedipine. 8. Renvela. 9. Renagel. 10. Topamax. REVIEW OF SYSTEMS: HEENT: Unremarkable. RESPIRATORY: No shortness of breath. CARDIOVASCULAR: No chest pain, palpitation. ABDOMEN: Denies any dyspepsia, hematemesis or melena. EXTREMITIES: Left groin pain and edema of the left groin. CENTRAL NERVOUS SYSTEM: Unremarkable. PHYSICAL EXAMINATION: GENERAL: The patient is awake, alert. VITAL SIGNS: Pulse 87, blood pressure 150/90. HEAD: Atraumatic, normocephalic. Pupils equal, reactive. NECK: Supple. LUNGS: Clear. CARDIOVASCULAR: S1, S2 are normal. ABDOMEN: Soft. Bowel sounds positive. No palpable mass. EXTREMITIES: No cyanosis, clubbing, edema of the left lower extremity noted. The patient has a left Perm-A-Cath with swelling of the left thigh noted. LABORATORY DATA: WBC 12.2, hematocrit 25.6, platelet count of 135. Sodium 137 , potassium 4.4. IMPRESSION: 1. The patient has left groin mass, rule out seroma, rule out abscess, rule out hematoma. 2. Leukocytosis. 3. End-stage renal disease. 4. Hypertension. 5. Leukocytosis. 6. Anemia. 7. History of [place] palsy. PLAN: At this point is to continue renal diet, blood pressure control, hemodialysis, antibiotics. The patient will have ultrasound of the left lower extremity to rule out abscess versus seroma. It is possible that patient will need surgical intervention and the drainage of the fluid from the left groin and possibly changing the PermCath catheter if needed. Hemodialysis nurse has been called. Thank you, Dr. Brian, kindly asking me to see this patient in nephrology consultation. Dictated By: MIKE GOMEZ/BRADLEY Conf#: [id number] DID#: [id number] MTDD
[2016-12-07] MEDS: morphine 2 MG INJ IV PRN ×2 (16:48→20:38)
[2016-12-07] MEDS ORDERED: INFLUENZA VIRUS VACCINE 0.5 ML (DISPENSING) IM* ONE (18:30)
[2016-12-07 19:23] VITALS: BP 189/113; RESP 20
[2016-12-07] MEDS: LABETALOL 100 MG TAB PO SCH (20:06)
[2016-12-07] MEDS: TOPIRAMATE SPRINKLE 25 MG CAP PO SCH (21:30)
[2016-12-07 21:41] VITALS: BP 162/95; RESP 20
[2016-12-08] VITALS (14 sets, daily range): BP systolic 118–162; BP diastolic 59–93; PULSE 70–82; RESP 17–21
[2016-12-08] MEDS: morphine 2 MG INJ IV PRN ×3 (02:42→13:25)
[2016-12-08 05:34] LABS: BASOPHILS % 0.4 % (0.0-2.0); EOSINOPHILS # 0.3 10^3/ul (0.0-0.5); EOSINOPHILS % 2.9 % (0.0-7.0); HEMATOCRIT 24.7 % (37.0-47.0); HEMOGLOBIN 7.8 g/dl (12.0-16.0); LYMPHOCYTES # 0.7 10^3/ul (0.8-2.9); LYMPHOCYTES % 8.6 % (15.0-51.0); MEAN CORPUSCULAR HEMOGLOBIN 28.8 pg (29.0-33.0); MEAN CORPUSCULAR HGB CONC 31.6 g/dl (32.0-37.0); MEAN CORPUSCULAR VOLUME 91.1 fl (82.0-101.0); MEAN PLATELET VOLUME 11.6 fl (7.4-10.4); MONOCYTE # 0.9 10^3/ul (0.3-0.9); MONOCYTES % 10.3 % (0.0-11.0); NEUTROPHIL # 6.6 10^3/ul (1.6-7.5); NEUTROPHILS % 77.2 % (39.0-77.0); PLATELET COUNT 132 10^3/UL (140-415); RED BLOOD COUNT 2.71 10^6/ul (4.20-5.40); RED CELL DISTRIBUTION WIDTH 17.2 % (11.5-14.5); WHITE BLOOD COUNT 8.5 10^3/ul (4.8-10.8)
[2016-12-08 06:00] LABS: CALCIUM 7.6 mg/dl (8.4-10.2); MAGNESIUM 1.7 mg/dl (1.7-2.5); PHOSPHORUS 7.4 mg/dl (2.5-4.9); POTASSIUM 4.3 mmol/L (3.5-5.1)
[2016-12-08 06:05] LABS: POSITIVE DIFF @See below
[2016-12-08 06:17] LABS: CREATININE 14.2 mg/dl (0.44-1.00)
[2016-12-08] MEDS: SEVELAMER 800 MG TAB PO SCH ×3 (08:15→18:00)
--- NOTE | 2016-12-08 08:29 | CONS ---
DATE OF ADMISSION: 12/07/2016 DATE OF CONSULTATION: 12/07/2016 VASCULAR SURGERY CONSULTATION Dear Doctors: Ms. Taylor is a 31-year-old female with a history of endstage renal disease that seemed to have st arted in 2013 secondary to hypertension. The patient underwent multiple left upper extremity fistul a creations that have failed. Further, the patient has had history of bilateral chest wall catheter s that are no longer amenable secondary to possible central stenosis/occlusion. Patient has had a h istory of left groin catheter that now presents with groin pain, fluid collection around the line re quiring for possible removal secondary to infection. The patient had an extremity ultrasound that i dentified patient having dialysis catheter in the left inguinal region with surrounding fluid that s eems to be thick and possible abscess. The patient's white blood cell count upon admission was 12.2 and currently is being treated with antibiotics. Vascular surgery consultation was obtained for ev aluation of a new temporary catheter placement and removal of the current catheter for workup of teresa e infection. At the moment, the patient denies shortness of breath, chest pain, nausea, vomiting, f ever or chills. REVIEW OF SYSTEMS: A 14-point review performed and negative except what is mentioned in the HPI. PAST MEDICAL HISTORY: Entails smoker, hypertension, endstage renal disease, morbidly obese with a B CA of 32.6. PAST SURGICAL HISTORY: , multiple chest wall catheters and left upper extremity fistula cr eations. SOCIAL HISTORY: Current smoker, history of alcohol use and substance abuse in the past. FAMILY HISTORY: Positive for hypertension and coronary artery disease. PHYSICAL EXAMINATION: GENERAL: Alert and oriented x3, no apparent distress. HEENT: Normocephalic, atraumatic. Mucosa moist. Patient has had a history of [place]'s palsy. NECK: Supple. No carotid bruit. PULMONARY: Clear to auscultation bilaterally. No crackles. CARDIOVASCULAR: S1, S2 present. No murmurs. ABDOMEN: Soft, nontender, nondistended. Bowel sounds positive. Truncal obesity. EXTREMITIES: Right lower extremity palpable femoral pulse, faint pedal pulse. Motor, sensory intac t. Cap refill 2 to 3 seconds. Left lower extremity groin catheter intact, nontender upon palpation and some induration, erythema, no purulence identified. Palpable femoral pulse, faint pedal pulse. Motor, sensory intact. Left upper extremity palpable brachial pulse. Motor, sensory intact. Cap refill 2 seconds. Surgical scar is well healed. Previous fistula that has no bruit or thrill exce pt antecubital fossa that is just pulsatile. ASSESSMENT AND PLAN: Endstage renal disease and central stenosis: It seems the patient has had a l ongstanding history of multiple chest wall catheters and fistula creations in which have all failed. There is a strong suggestion that patient has central occlusion/stenosis in which she would need t o further evaluate for possible creation of new advanced fistulas. At the moment, we will schedule the patient for evaluation of her left groin catheter as the patient has now become very limited wit h possible access for new dialysis catheters. Hopefully, plan to maintain the current access, possi ble intervention in order to preserve for future options. We will schedule the patient for bilateral upper extremity venograms to evaluate for possible new ch est wall catheter/HeRO catheter placement. We will obtain bilateral upper extremity vein mapping. Optimize vascular status (BP meds, diet, nutrition, exercise, sugar control, anti-platelets). Discussed findings, plan and management with the patient and she understands. The patient is also scheduled with our radiology colleagues for removal of the catheter. We will pl an to coordinate a multidisciplinary approach for the patient in order to preserve her current acces s in addition for removal of the infected line. We will plan to send cultures of the catheter tip. Thank you for allowing us to partake in the care of your patient. Please call with any questions. Dictated By: JULISSA ZUÑIGA/BRADLEY Conf#: [id number] DID#: [id number]
[2016-12-08] MEDS: FUROSEMIDE 20 MG TAB PO SCH (09:00)
[2016-12-08] MEDS: ASPIRIN 81 MG TAB PO SCH (09:00)
[2016-12-08] MEDS: NIFEdipine (XL) 60 MG TAB PO SCH (09:00)
[2016-12-08] MEDS: LABETALOL 100 MG TAB PO SCH ×2 (09:00→22:04)
[2016-12-08] MEDS: TOPIRAMATE SPRINKLE 25 MG CAP PO SCH ×2 (09:00→22:03)
[2016-12-08] MEDS ORDERED: LIDOCAINE 1% (MDV) 20 ML INJ ONE ×2 (11:37→11:53)
[2016-12-08] MEDS ORDERED: MIDAZOLAM 1 MG/ML 2 ML INJ ONE (11:38)
[2016-12-08] MEDS ORDERED: FENTAnyl 50 MCG/ML VIAL ONE ×2 (11:38→17:08)
--- NOTE | 2016-12-08 11:39 | HPN ---
Date/Time of Note Date/Time of Note DATE: 12/08/16 TIME: 11:39 Interval H&P Admission Note Pt. seen H&P reviewed: No system changes JULISSA NI MD Dec 08, 2016 11:39
--- NOTE | 2016-12-08 11:41 | SIPON ---
Date/Time of Note Date/Time of Note DATE: 12/08/16 TIME: 11:39 Operative Report Preoperative Diagnosis ESRD, CENTRAL STENOSIS, INFECTED LEFT GROIN CATHETER Postoperative Diagnosis SAME Operation/Procedure Performed CENTRAL VENOGRAM Surgeon see signature line assistive technology specialist NONE Anesthesia: moderate sedation Estimated blood loss: minimal Transfusion Required none Specimen NONE Grafts/Implants none Complications none JULISSA NI MD Dec 08, 2016 11:41 JULISSA NI MD Dec 08, 2016 11:41
[2016-12-08] MEDS: ENOXAPARIN 30 MG/0.3 ML SYG SC SCH (12:00)
[2016-12-08] MEDS ORDERED: hydrALAzine 20 MG INJ ONE (12:05)
--- NOTE | 2016-12-08 12:14 | OPR ---
Date/Time of Note Date/Time of Note DATE: 12/08/16 TIME: 12:08 Operative Report Procedure Date: Dec 08, 2016 Preoperative Diagnosis ESRD CENTRAL STENOSIS AND INFECTED LEFT GROIN CATHETER Postoperative Diagnosis SAME Surgeon see signature line Zoning Assistant NONE Anesthesia Type: moderate sedation Estimated Blood Loss: minimal Transfusion none Specimen NONE Grafts/Implants none Complications none Disposition: other (FLOOR) Procedure Description DATE OF OPERATION: 12/08/2016 PREOPERATIVE DIAGNOSIS: End-stage renal disease, Central stenosis, infected left groin POSTOPERATIVE DIAGNOSIS: same SURGEON: Mark Ni MD ANESTHESIA: Local. COMPLICATIONS: None. ACCESS: left common femoral vein. INDICATIONS: This is a 31-year-old female with renal failure requiring dialysis , central stenosis and infected left groin catheter. The patient and family had been informed of alternatives, risks, and benefits. Risks including but not limited to bleeding, thrombosis, embolization, myocardial infarction, , stroke, device malfunction, infection and nephrotoxicity, and the patient has agreed to proceed. PROCEDURE: Central venogram DESCRIPTION OF PROCEDURE: The patient was brought into the operating room table and placed in supine position. The bed was placed in slight Trendelenburg position and the groin was prepped and draped in the usual standard sterile fashion. The central dialysis catheter was then flushed with heparinized saline solution to ensure function of each port. The skin and subcutaneous tissue were anesthetized with 1% lidocaine. At this point, using an Amplatz Stiff wire was placed in the IVC to straighten the catheter for removal and to maintain access. At this point attempt was made to remove the infected tunnelled catheter, however, the patient expressed being uncomfortable with the pain level and would like to be fully sedated with airway protection. Therefore the procedure was staged in order to remove the perm catheter and exchange to a new catheter with possible intervention in the operating room with our anesthesia colleagues. The patient tolerated the procedure well and was taken to the postanesthesia care unit in stable condition. All instrument, sponge and needle counts were correct x2. MARK NI MD Dec 08, 2016 12:14
--- NOTE | 2016-12-08 12:58 | PN ---
Date/Time of Note Date/Time of Note DATE: 12/08/16 TIME: 12:46 Assessment/Plan VTE Prophylaxis VTE Prophylaxis Intervention: SCD's Lines/Catheters IV Catheter Type (from Nrsg): Saline Lock Assessment/Plan Assessment/Plan 31 yo F with ESRD on HD here for L groin pain, found to have HD line tunnel infection with resultant staph aures bacteremia PLAN cont dapto (pt with vanc allergy) check TTE to r/o IE per IDSA guidelines, line should come out given staph aureus. if line removed, pt will need 2 weeks of treatment (assuming f/u blood cultures negative once line out and TTE without evidence of IE) otherwise pt will require 4-6 weeks of therapy consider ID consult closer to discharge line to be removed and new line placed Subjective 24 Hr Interval Summary Free Text/Dictation Blood cultures and wound all this staph aures plan had been for vascular surgeon to remove line today but pt unable to tolerate 2/2 pain Exam/Review of Systems Vital Signs Vitals Vital Signs Date Time Temp Pulse Resp B/P Pulse Ox O2 Delivery O2 Flow Rate FiO2 12/08/16 07:20 98.5 73 18 148/82 100 12/07/16 12:01 Room Air 12/07/16 08:45 2 Intake and Output 12/07/16 12/07/16 12/08/16 15:00 23:00 07:00 Intake Total 220 ml Balance 220 ml Exam nad no mrg lungs clear abd soft no rashes WBCs better but admit blood cultures and wound cultures with staph aureus Results Result Diagram: 12/08/16 0502 12/08/16 0502 Results 24 hrs Laboratory Tests Test 12/07/16 12:50 12/07/16 14:57 12/08/16 05:02 Urine Color YELLOW Urine Clarity CLEAR Urine pH 7.0 Urine Specific [place] 1.010 Urine Ketones NEGATIVE Urine Nitrite NEGATIVE Urine Bilirubin NEGATIVE Urine Urobilinogen NEGATIVE Urine Leukocyte Esterase 1+ H Urine Microscopic RBC 3 Urine Microscopic WBC 7 H Urine Bacteria FEW A Urine Hemoglobin 1+ H Urine Glucose NEGATIVE Urine Total Protein 2+ H Lactic Acid Level 0.6 White Blood Count 8.5 # Red Blood Count 2.71 L Hemoglobin 7.8 L Hematocrit 24.7 L Mean Corpuscular Volume 91.1 Mean Corpuscular Hemoglobin 28.8 L Mean Corpuscular Hemoglobin Concent 31.6 L Red Cell Distribution Width 17.2 H Platelet Count 132 L Mean Platelet Volume 11.6 H Neutrophils % 77.2 H Lymphocytes % 8.6 L Monocytes % 10.3 Eosinophils % 2.9 Basophils % 0.4 Nucleated Red Blood Cells % 0.0 Neutrophils # 6.6 Lymphocytes # 0.7 L Monocytes # 0.9 Eosinophils # 0.3 Basophils # 0.0 Nucleated Red Blood Cells # 0.0 Sodium Level 138 Potassium Level 4.3 Chloride Level 104 Carbon Dioxide Level 19 L Anion Gap 19 H Blood Urea Nitrogen 88 H Creatinine 14.20 H Glucose Level 108 Calcium Level 7.6 L Phosphorus Level 7.4 H Magnesium Level 1.7 Creatine Kinase 139 Medications Medications Current Medications Acetaminophen (Tylenol Tab) 650 mg Q6H PRN PO PAIN LEVEL 1-3 OR FEVER; Start 12/07/16 at 11:00 Acetaminophen/ Hydrocodone Bitart ([place] (5/325)) 1 tab Q6H PRN PO MODERATE PAIN LEVEL 4-6 Last administered on 12/07/16 13:38; Admin Dose 1 TAB; Start at 11:00 Docusate Sodium (Colace) 100 mg Q12H PRN PO CONSTIPATION; Start 12/07/16 at 11: 00 Magnesium Hydroxide (Milk Of Mag) 30 ml DAILY PRN PO CONSTIPATION; Start at 11:00 Bisacodyl (Dulcolax) 5 mg DAILY PRN PO CONSTIPATION; Start 12/07/16 at 11:00 Enoxaparin Sodium (Lovenox) 30 mg DAILY@12 SC Last administered on 12/07/16 13 :42; Admin Dose 30 MG; Start 12/07/16 at 12:00 Aspirin (Aspirin) 81 mg DAILY PO ; Start 12/08/16 at 09:00 Clonidine (Catapres) 0.2 mg BID PO Last administered on 12/07/16 20:06; Admin Dose 0.2 MG; Start 12/07/16 at 21:00 Furosemide (Lasix) 20 mg DAILY PO ; Start 12/08/16 at 09:00 Labetalol HCl (Normodyne) 100 mg BID PO Last administered on 12/07/16 20:06; Admin Dose 100 MG; Start 12/07/16 at 21:00; Status Future hold Nifedipine (Procardia Xl) 60 mg DAILY PO ; Start 12/08/16 at 09:00 Topiramate 25 mg 25 mg BID PO Last administered on 12/07/16 21:30; Admin Dose 25 MG; Start 12/07/16 at 21:00 Daptomycin/Sodium Chloride (Cubicin/NS) 100 ml @ 200 mls/hr Q48H IVPB Last administered on 12/07/16 16:48; Admin Dose 200 MLS/HR; Start 12/07/16 at 13:00 Tramadol HCl (Ultram) 50 mg Q6H PRN PO pain; Start 12/07/16 at 14:00 Morphine Sulfate (morphine) 2 mg Q4H PRN IV pain Last administered on 08:46; Admin Dose 2 MG; Start 12/07/16 at 16:30 BHARAT BLACK MD Dec 08, 2016 12:57
[2016-12-08] MEDS ORDERED: HEPARIN 1000 UNITS/ML 10 ML INJ ONE ×2 (17:04→18:11)
[2016-12-08] MEDS ORDERED: LIDOCAINE 1% (MPF) 30 ML INJ ONE (17:04)
[2016-12-08] MEDS ORDERED: BUPIVACAINE 0.5% (SDV) 30 ML INJ ONE (17:04)
[2016-12-08] MEDS ORDERED: PROPOFOL 20 ML ONE (17:08)
[2016-12-08] MEDS ORDERED: MEPERIDINE 25 MG INJ IV PRN (17:30)
[2016-12-08] MEDS ORDERED: FENTAnyl 50 MCG/ML VIAL IV PRN ×3 (17:30)
[2016-12-08] MEDS ORDERED: ONDANSETRON 4 MG INJ IV PRN (17:30)
[2016-12-08] MEDS ORDERED: METOCLOPRAMIDE 10 MG INJ IV PRN ×2 (17:30)
[2016-12-08] MEDS ORDERED: DIPHENHYDRAMINE 50 MG INJ IV PRN (17:30)
[2016-12-08] MEDS ORDERED: hydrALAzine 20 MG INJ IV PRN (17:30)
[2016-12-08] MEDS ORDERED: HYDROmorphONE (0.2 MG/ML) 10ML SYG IV PRN ×3 (17:30)
[2016-12-08] MEDS ORDERED: LABETALOL HCL 20MG INJ IV PRN (17:30)
[2016-12-08] MEDS ORDERED: EPHEDrine SULFATE 50 MG/5 ML SYG IV PRN (17:30)
[2016-12-08] MEDS ORDERED: IOHEXOL 300MG/ML 30 ML BTL ONE (17:46)
[2016-12-08] MEDS ORDERED: CEFAZOLIN 1 GM INJ ONE (18:31)
[2016-12-08] MEDS ORDERED: ONDANSETRON 4 MG INJ ONE (18:31)
[2016-12-08] MEDS ORDERED: METOCLOPRAMIDE 10 MG INJ ONE (18:31)
[2016-12-08] MEDS ORDERED: DEXAMETHASONE 4 MG/ML 1 ML INJ ONE (18:31)
--- NOTE | 2016-12-08 18:53 | CONS ---
Date/Time of Note Date/Time of Note DATE: 12/08/16 TIME: 18:49 Assessment/Plan Assessment/Plan Chief Complaint/Hosp Course IMPRESSION: 1. The patient has left groin MASS, rule out seroma, rule out abscess, rule out hematoma.OLD 2. Leukocytosis. 3. End-stage renal disease. 4. Hypertension. 5. PERMACATH RELATED INF W BACTEREMIA. 6. Anemia. 7. History of [place] palsy. 8 LOWER EX EDEMA PLAN ANTIBIOTIC REPLACEMENT OF CATH HD Problems: Consultation Date/Type/Reason Admit Date/Time Dec 07, 2016 at 10:40 Initial Consult Date RENAL LEFT GROIN INFECTED PERMACATH SITE CATH REMOVAL 24 HR Interval Summary Constitutional: other (GROIN PAIN+) Exam/Review of Systems Vital Signs Vitals Vital Signs Date Time Temp Pulse Resp B/P Pulse Ox O2 Delivery O2 Flow Rate FiO2 12/08/16 13:03 97.6 82 18 162/89 100 12/07/16 12:01 Room Air 12/07/16 08:45 2 Intake and Output 12/07/16 12/07/16 12/08/16 15:00 23:00 07:00 Intake Total 220 ml Balance 220 ml Exam Constitutional: alert, oriented, well developed Neck: non-tender, supple Respiratory: clear to auscultation, normal air movement Cardiovascular: regular rate and rhythm Gastrointestinal: bowel sounds (+), soft Musculoskeletal: range of motion (PAIN GROIN+) Extremities: edema Neurological: other (NO DEFICIT) Results Result Diagram: 12/08/16 0502 12/08/16 0502 Results 24 hrs Laboratory Tests Test 12/08/16 05:00 12/08/16 05:02 Serum HCG, Qualitative NEGATIVE White Blood Count 8.5 # Red Blood Count 2.71 L Hemoglobin 7.8 L Hematocrit 24.7 L Mean Corpuscular Volume 91.1 Mean Corpuscular Hemoglobin 28.8 L Mean Corpuscular Hemoglobin Concent 31.6 L Red Cell Distribution Width 17.2 H Platelet Count 132 L Mean Platelet Volume 11.6 H Neutrophils % 77.2 H Lymphocytes % 8.6 L Monocytes % 10.3 Eosinophils % 2.9 Basophils % 0.4 Nucleated Red Blood Cells % 0.0 Neutrophils # 6.6 Lymphocytes # 0.7 L Monocytes # 0.9 Eosinophils # 0.3 Basophils # 0.0 Nucleated Red Blood Cells # 0.0 Sodium Level 138 Potassium Level 4.3 Chloride Level 104 Carbon Dioxide Level 19 L Anion Gap 19 H Blood Urea Nitrogen 88 H Creatinine 14.20 H Glucose Level 108 Calcium Level 7.6 L Phosphorus Level 7.4 H Magnesium Level 1.7 Creatine Kinase 139 Medications Medications Current Medications Acetaminophen (Tylenol Tab) 650 mg Q6H PRN PO PAIN LEVEL 1-3 OR FEVER; Start 12/07/16 at 11:00 Acetaminophen/ Hydrocodone Bitart ([place] (5/325)) 1 tab Q6H PRN PO MODERATE PAIN LEVEL 4-6 Last administered on 12/07/16 13:38; Admin Dose 1 TAB; Start at 11:00 Docusate Sodium (Colace) 100 mg Q12H PRN PO CONSTIPATION; Start 12/07/16 at 11: 00 Magnesium Hydroxide (Milk Of Mag) 30 ml DAILY PRN PO CONSTIPATION; Start at 11:00 Bisacodyl (Dulcolax) 5 mg DAILY PRN PO CONSTIPATION; Start 12/07/16 at 11:00 Enoxaparin Sodium (Lovenox) 30 mg DAILY@12 SC Last administered on 12/07/16 13 :42; Admin Dose 30 MG; Start 12/07/16 at 12:00 Aspirin (Aspirin) 81 mg DAILY PO ; Start 12/08/16 at 09:00 Clonidine (Catapres) 0.2 mg BID PO Last administered on 12/07/16 20:06; Admin Dose 0.2 MG; Start 12/07/16 at 21:00 Furosemide (Lasix) 20 mg DAILY PO ; Start 12/08/16 at 09:00 Labetalol HCl (Normodyne) 100 mg BID PO Last administered on 12/07/16 20:06; Admin Dose 100 MG; Start 12/07/16 at 21:00; Status Future hold Nifedipine (Procardia Xl) 60 mg DAILY PO ; Start 12/08/16 at 09:00 Topiramate 25 mg 25 mg BID PO Last administered on 12/07/16 21:30; Admin Dose 25 MG; Start 12/07/16 at 21:00 Daptomycin/Sodium Chloride (Cubicin/NS) 100 ml @ 200 mls/hr Q48H IVPB Last administered on 12/07/16 16:48; Admin Dose 200 MLS/HR; Start 12/07/16 at 13:00 Tramadol HCl (Ultram) 50 mg Q6H PRN PO pain; Start 12/07/16 at 14:00 Morphine Sulfate (morphine) 2 mg Q4H PRN IV pain Last administered on t 13:25; Admin Dose 2 MG; Start 12/07/16 at 16:30 MIKE VEGA MD Dec 08, 2016 18:53
--- NOTE | 2016-12-08 19:00 | RADRPT ---
Echocardiogram Report Patient Name: IRVING GUERRERO Gender: Female Date: 1985 Study Date: 08-Dec-2016 Anatomic Pathology Assistant: Fermin Neville [facility] Location: [id number] Ref. Physician: BHARAT BLACK Quality: Good Procedures: Transthoracic echocardiogram with complete 2D, M-Mode, and doppler examination. Indications: staph bacteremia. 2D/M Mode Doppler Measurement Value Normal Ranges Measurement Value Normal Ranges LVIDd 2D 5.2 3.5 - 5.6 cm AV Peak Pk 1.7 m/sec LVIDs 2D 2.7 2.1 - 4.1 cm AV Peak PG 12.0 mmHg FS 2D 48.4 % LVOT Peak Pk 1.3 m/sec LVPWd 2D 1.3 0.6 - 1.1 cm LVOT Peak PG 7.0 mmHg IVSd 2D 1.3 0.6 - 1.1 cm MV E Peak Pk 1.1 m/sec IVS/LVPW 2D 0.9 MV A Peak Pk 0.9 m/sec AoR Diam 2D 2.9 2.0 - 3.7 cm MV E/A 1.3 LA/Ao 2D 1 0 - 1 MV Decel Time 176 msec EDV 2D 143.0 cm3 MV E/A 1.3 ESV 2D 19.7 cm3 TR Peak Pk 2.9 m/sec LA Dimen 2D 3.9 2.3 - 4.0 cm TR Peak PG 34.0 mmHg RVSP 49.0 mmHg Findings Left Ventricle: Normal left ventricular systolic function. Normal left ventricular cavity size. Mild concentric left ventricular hypertrophy. Ejection fraction is visually estimated at 5560 %. Tissue Doppler/Mitral Doppler indices are within normal limits. Right Ventricle: Normal right ventricular size. Normal right ventricular systolic function. Left Atrium: The left atrium is normal in size. Right Atrium: The right atrium is normal in size. Mitral Valve: Mitral valve leaflets appear mildly thickened. Mild mitral annular calcification. Mild mitral valve regurgitation. Aortic Valve: No significant aortic stenosis or insufficiency. Aortic cusps appear mildly calcified. Tricuspid Valve: Normal appearance of the tricuspid valve. Estimated peak PA systolic pressure 49 mmHg. There is mild tricuspid regurgitation. Pulmonic Valve: Normal pulmonic valve appearance. Pericardium: Trivial pericardial effusion. Pleural effusion seen. Aorta: Normal aortic root. IVC: Dilated IVC without respiratory collapse consistent with elevated right atrial pressure. Conclusions 1.Normal left ventricular systolic function. Normal left ventricular cavity size. Mild concentric left ventricular hypertrophy. Ejection fraction is visually estimated at 55-60 %. Tissue Doppler/Mitral Doppler indices are within normal limits. 2.Mitral valve leaflets appear mildly thickened. Mild mitral annular calcification. Mild mitral valve regurgitation. 3.Normal appearance of the tricuspid valve. Estimated peak PA systolic pressure 49 mmHg. There is mild tricuspid regurgitation. 4.Trivial pericardial effusion. Pleural effusion seen. Electronically Signed By: Leonardo Denney 08-Dec-2016 19:00:18 -0700 Patient Name: IRVING GUERRERO Study Date: 08-Dec-2016 [id number]
--- NOTE | 2016-12-08 19:02 | OPR ---
Date/Time of Note Date/Time of Note DATE: 12/08/16 TIME: 18:51 Operative Report Procedure Date: Dec 08, 2016 Preoperative Diagnosis ESRD & CENTRAL STENOSIS Postoperative Diagnosis SAME Surgeon see signature line Product Safety Consultant NONE Anesthesia Type: MAC Estimated Blood Loss: minimal Transfusion none Specimen CATHETER TIP Grafts/Implants none Complications none Pt Condition Post Procedure: stable Disposition: PACU Procedure Description DATE OF OPERATION: 12/08/2016 PREOPERATIVE DIAGNOSIS: End-stage renal disease, Central stenosis, infected permanent catheter POSTOPERATIVE DIAGNOSIS: same SURGEON: Mark Ni MD ANESTHESIA: MAC COMPLICATIONS: None. ACCESS: Left common femoral vein. INDICATIONS: This is a 31-year-old female with renal failure, central stenosis and infected catheter requiring dialysis. The patient and family had been informed of alternatives, risks, and benefits. Risks including but not limited to bleeding, thrombosis, embolization, myocardial infarction, , stroke, device malfunction, infection and nephrotoxicity, and the patient has agreed to proceed. PROCEDURE: 1. Iliac venogram 2. Exchange of left common femoral vein tunneled hemodialysis catheter to a Aris catheter 3. Fluoroscopy DESCRIPTION OF PROCEDURE: The patient was brought into the operating room table and placed in supine position. The bed was placed in slight Trendelenburg position and the groin was prepped and draped in the usual standard sterile fashion. The central dialysis catheter was then flushed with heparinized saline solution to ensure function of each port. The skin and subcutaneous tissue were anesthetized with 1% lidocaine. At this point, using an Amplatz Stiff wire, the permanent catheter cuff was freed from surrounding granulation tissue. An iliac venogram was performed through the permanent catheter and identified moderate disease throughout its course. The catheter was then removed over the wire. The catheter tip was sent for culture. At this point, the tunneled tract was irrigated and packed with iodoform dressing. Subsequently the stiff wire was identified in the groin crease through a small stab incision and exit through this site. The new Aris hemodialysis catheter was passed over the wire gently. The temporary catheter was placed in order to preserve the access site as shes had multiple chest wall and groin catheters with central occlusions. The catheter was inserted to the desired depth and secured with a 3-0 nylon suture at its flush port site. Then heparin weas placed in each port and an fluoroscopy was obtained to ensure the placement of the catheter, which was adequate. The patient tolerated the procedure well and was taken to the postanesthesia care unit in stable condition. All instrument, sponge and needle counts were correct x2. MARK NI MD Dec 08, 2016 19:02
--- NOTE | 2016-12-08 20:43 | RADRPT ---
PROCEDURE: Intraoperative imaging of the pelvis with fluoroscopy. CLINICAL INDICATION: Line placement. Intraoperative. TECHNIQUE: 39 images of the pelvis were obtained in the operating room with an image intensifier. No radiologist was in attendance. Fluoroscopy time is 8.6 seconds. COMPARISON: Ultrasound of the soft tissues of the left inguinal region dated 12/07/2016 which demo nstrated a dialysis catheter in the left inguinal region. FINDINGS: Previously noted left inguinal dialysis catheter is removed. Images demonstrate a guidewire in the r ight femoral vein and inferior vena cava. The final images demonstrate a temporary dialysis catheter entering via the right femoral vein with the tip not well seen. IMPRESSION: 1. Intraoperative imaging of the pelvis.. RPTAT: QQ .Qasim Watkins MD, MD Date Time Electronically viewed and signed by .Qasim Watkins MD, on 12/08/2016 20:42 .R/
[2016-12-09] VITALS (11 sets, daily range): BP systolic 121–160; BP diastolic 67–92; PULSE 68–80; RESP 18–20
[2016-12-09] MEDS: morphine 2 MG INJ IV PRN ×5 (01:05→21:40)
--- NOTE | 2016-12-09 05:37 | PN ---
Date/Time of Note Date/Time of Note DATE: 12/09/16 TIME: 05:33 Assessment/Plan Lines/Catheters IV Catheter Type (from [facility] Saline Lock Assessment/Plan Chief Complaint/Hosp Course -Endstage renal disease and central stenosis: It seems the patient has had a longstanding history of multiple chest wall catheters and fistula creations in which have all failed. There is a strong suggestion that patient has central occlusion/stenosis in which she would need to be further evaluated for possible creation of new advanced fistula. At the moment, we will schedule the patient for evaluation of her left groin catheter as the patient has now become very limited with possible access for new dialysis catheters. Hopefully, plan to maintain the current access, possible intervention in order to preserve for future options. -S/P Left groin catheter exchange to a Aris catheter -Followup cultures of the catheter tip. -We will schedule the patient for bilateral upper extremity venograms to evaluate for possible new chest wall catheter/HeRO catheter placement. -Await bilateral upper extremity vein mapping. -Optimize vascular status (BP meds, diet, nutrition, exercise, sugar control, anti-platelets). -Discussed findings, plan and management with the patient and she understands. -Thank you for allowing us to partake in the care of your patient. Please call with any questions. Problems: Subjective 24 Hr Interval Summary no new vascular events overnight Exam/Review of Systems Vital Signs Vitals Vital Signs Date Time Temp Pulse Resp B/P Pulse Ox O2 Delivery O2 Flow Rate FiO2 12/09/16 01:35 97.8 90 20 150/91 99 12/08/16 19:34 Room Air 12/08/16 19:03 3.0 Intake and Output 12/08/16 12/08/16 12/09/16 15:00 23:00 07:00 Intake Total 410 ml Output Total 20 ml Balance 390 ml Exam Free Text/Dictation GENERAL: Alert and oriented x3, PULMONARY: Clear to auscultation bilaterally. CARDIOVASCULAR: S1, S2 present. ABDOMEN: Soft, nontender, nondistended. Bowel sounds positive. Truncal obesity. EXTREMITIES: Right lower extremity palpable femoral pulse, faint pedal pulse. Motor, sensory intact. Cap refill 2 to 3 seconds. Left lower extremity groin catheter intact, nontender upon palpation and some induration, erythema, no purulence identified. Palpable femoral pulse, faint pedal pulse. Motor, sensory intact. Left upper extremity palpable brachial pulse. Motor, sensory intact. Cap refill 2 seconds. Surgical scar is well healed. Previous fistula that has no bruit or thrill except antecubital fossa that is just pulsatile. Results Result Diagram: 12/08/16 0502 12/08/16 0502 JULISSA NI MD Dec 09, 2016 05:37
[2016-12-09 06:07] LABS: ABNORMAL IP MESSAGE 1; BASOPHILS % 0.3 % (0.0-2.0); EOSINOPHILS % 0.2 % (0.0-7.0); HEMATOCRIT 25.1 % (37.0-47.0); HEMOGLOBIN 8.1 g/dl (12.0-16.0); LYMPHOCYTES # 0.3 10^3/ul (0.8-2.9); LYMPHOCYTES % 4.5 % (15.0-51.0); MEAN CORPUSCULAR HEMOGLOBIN 29.5 pg (29.0-33.0); MEAN CORPUSCULAR HGB CONC 32.3 g/dl (32.0-37.0); MEAN CORPUSCULAR VOLUME 91.3 fl (82.0-101.0); MEAN PLATELET VOLUME 11.4 fl (7.4-10.4); MONOCYTE # 0.5 10^3/ul (0.3-0.9); NEUTROPHIL # 5.7 10^3/ul (1.6-7.5); NEUTROPHILS % 87.5 % (39.0-77.0); PLATELET COUNT 144 10^3/UL (140-415); RED BLOOD COUNT 2.75 10^6/ul (4.20-5.40); RED CELL DISTRIBUTION WIDTH 16.8 % (11.5-14.5); WHITE BLOOD COUNT 6.5 10^3/ul (4.8-10.8)
[2016-12-09 06:28] LABS: POSITIVE DIFF @See below
[2016-12-09 06:51] LABS: ALBUMIN 3.2 g/dl (3.3-4.9); ALBUMIN/GLOBULIN RATIO 0.88; CALCIUM 7.9 mg/dl (8.4-10.2); POTASSIUM 4.6 mmol/L (3.5-5.1); TOTAL PROTEIN 6.8 g/dl (6.1-8.1)
[2016-12-09] MEDS ORDERED: DIPHENHYDRAMINE 50 MG INJ IM ONE (07:00)
[2016-12-09 07:02] LABS: CREATININE 14.56 mg/dl (0.44-1.00)
[2016-12-09] MEDS: TOPIRAMATE SPRINKLE 25 MG CAP PO SCH ×2 (10:07→20:31)
[2016-12-09] MEDS: SEVELAMER 800 MG TAB PO SCH ×3 (10:09→18:44)
[2016-12-09] MEDS: FOLIC ACID 1 MG TAB PO SCH (10:09)
[2016-12-09] MEDS: ASPIRIN 81 MG TAB PO SCH (10:09)
[2016-12-09] MEDS: MULTIVIT/CA CARB/B CMPLX/FA TAB PO SCH (10:09)
[2016-12-09] MEDS: FUROSEMIDE 20 MG TAB PO SCH (10:10)
[2016-12-09] MEDS: NIFEdipine (XL) 60 MG TAB PO SCH (10:14)
[2016-12-09] MEDS: LABETALOL 100 MG TAB PO SCH ×2 (10:14→20:32)
[2016-12-09] MEDS: ENOXAPARIN 30 MG/0.3 ML SYG SC SCH (12:00)
--- NOTE | 2016-12-09 13:13 | PN ---
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 if line removed, pt will need 2 weeks of treatment (assuming f/u blood cultures remain negative once line out and given TTE without evidence of IE) otherwise pt will require 4- 6 weeks of therapy consider ID consult closer to discharge line to be removed and new line placed. Current line was the result of an exchange over a guidewire Subjective 24 Hr Interval Summary Free Text/Dictation pain controlled Exam/Review of Systems Vital Signs Vitals Vital Signs Date Time Temp Pulse Resp B/P Pulse Ox O2 Delivery O2 Flow Rate FiO2 12/09/16 08:00 72 17 12/09/16 07:48 97.5 156/85 94 12/08/16 19:34 Room Air 12/08/16 19:03 3.0 Intake and Output 12/08/16 12/08/16 12/09/16 15:00 23:00 07:00 Intake Total 410 ml Output Total 20 ml Balance 390 ml Exam nad no mrg lungs clear abd soft no rashes Results Result Diagram: 12/09/16 0522 12/09/16 0522 Results 24 hrs Laboratory Tests Test 12/09/16 05:22 White Blood Count 6.5 # Red Blood Count 2.75 L Hemoglobin 8.1 L Hematocrit 25.1 L Mean Corpuscular Volume 91.3 Mean Corpuscular Hemoglobin 29.5 Mean Corpuscular Hemoglobin Concent 32.3 Red Cell Distribution Width 16.8 H Platelet Count 144 Mean Platelet Volume 11.4 H Neutrophils % 87.5 H Lymphocytes % 4.5 L Monocytes % 7.0 Eosinophils % 0.2 Basophils % 0.3 Nucleated Red Blood Cells % 0.0 Neutrophils # 5.7 Lymphocytes # 0.3 L Monocytes # 0.5 Eosinophils # 0.0 Basophils # 0.0 Nucleated Red Blood Cells # 0.0 Sodium Level 140 Potassium Level 4.6 Chloride Level 106 Carbon Dioxide Level 19 L Anion Gap 20 H Blood Urea Nitrogen 95 H Creatinine 14.56 H Glucose Level 133 Calcium Level 7.9 L Total Bilirubin 0.0 L Direct Bilirubin 0.00 Indirect Bilirubin 0.0 Aspartate Amino Transf (AST/SGOT) 15 Alanine Aminotransferase (ALT/SGPT) 20 Alkaline Phosphatase 77 Total Protein 6.8 Albumin 3.2 L Globulin 3.60 H Albumin/Globulin Ratio 0.88 Medications Medications Current Medications Acetaminophen (Tylenol Tab) 650 mg Q6H PRN PO PAIN LEVEL 1-3 OR FEVER; Start 12/07/16 at 11:00 Acetaminophen/ Hydrocodone Bitart ([place] (5/325)) 1 tab Q6H PRN PO MODERATE PAIN LEVEL 4-6 Last administered on 12/07/16 13:38; Admin Dose 1 TAB; Start at 11:00 Docusate Sodium (Colace) 100 mg Q12H PRN PO CONSTIPATION; Start 12/07/16 at 11: 00 Magnesium Hydroxide (Milk Of Mag) 30 ml DAILY PRN PO CONSTIPATION; Start at 11:00 Bisacodyl (Dulcolax) 5 mg DAILY PRN PO CONSTIPATION; Start 12/07/16 at 11:00 Enoxaparin Sodium (Lovenox) 30 mg DAILY@12 SC Last administered on 12/07/16 13 :42; Admin Dose 30 MG; Start 12/07/16 at 12:00; Status Future hold Aspirin (Aspirin) 81 mg DAILY PO Last administered on 12/09/16 10:09; Admin Dose 81 MG; Start 12/08/16 at 09:00 Clonidine (Catapres) 0.2 mg BID PO Last administered on 12/09/16 10:15; Admin Dose 0.2 MG; Start 12/07/16 at 21:00 Furosemide (Lasix) 20 mg DAILY PO Last administered on 12/09/16 10:10; Admin Dose 20 MG; Start 12/08/16 at 09:00 Labetalol HCl (Normodyne) 100 mg BID PO Last administered on 12/09/16 10:14; Admin Dose 100 MG; Start 12/07/16 at 21:00; Status Future hold Nifedipine (Procardia Xl) 60 mg DAILY PO Last administered on 12/09/16 10:14; Admin Dose 60 MG; Start 12/08/16 at 09:00 Topiramate (Topamax Sprinkle) 25 mg BID PO Last administered on 12/09/16 10:07 ; Admin Dose 25 MG; Start 12/07/16 at 21:00 Tramadol HCl (Ultram) 50 mg Q6H PRN PO pain; Start 12/07/16 at 14:00 Morphine Sulfate (morphine) 2 mg Q4H PRN IV pain Last administered on 10:20; Admin Dose 2 MG; Start 12/07/16 at 16:30 Multivit/Ca Carb/ B Cmplx/FA/Prenat ([place]om[place]-Samantha) 1 tab DAILY PO Last administered on 12/09/16 10:09; Admin Dose 1 TAB; Start 12/09/16 at 09:00 Folic Acid (Folic Acid) 1 mg DAILY PO Last administered on 12/09/16 10:09; Admin Dose 1 MG; Start 12/09/16 at 09:00 Epoetin Zacarias (Epogen (Esrd)) 4,000 units TuTa@17 SC ; Start 12/10/16 at 17:00 BHARAT BLACK MD Dec 09, 2016 13:13
--- NOTE | 2016-12-09 14:00 | CONS ---
Date/Time of Note Date/Time of Note DATE: 12/09/16 TIME: 13:59 Assessment/Plan Assessment/Plan Chief Complaint/Hosp Course 1. The patient has left groin MASS, rule out seroma, rule out abscess, rule out hematoma. 2. SIRS with leukocytosis. 3. End-stage renal disease. 4. Hypertension, controlled. 5. PERMACATH RELATED INF W BACTEREMIA. 6. Anemia. 7. History of [place] palsy. 8. LOWER EX EDEMA Problems: Additional Assessment/Plan 1. continue HD 2. continue antibiotics Consultation Date/Type/Reason Admit Date/Time Dec 07, 2016 at 10:40 Initial Consult Date 12/07/2016 Type of Consultation: nephrology Reason for Consultation Dr Knox 24 HR Interval Summary Constitutional: poor po Exam/Review of Systems Vital Signs Vitals Vital Signs Date Time Temp Pulse Resp B/P Pulse Ox O2 Delivery O2 Flow Rate FiO2 12/09/16 08:00 72 17 12/09/16 07:48 97.5 156/85 94 12/08/16 19:34 Room Air 12/08/16 19:03 3.0 Intake and Output 12/08/16 12/08/16 12/09/16 15:00 23:00 07:00 Intake Total 410 ml Output Total 20 ml Balance 390 ml Exam Constitutional: alert, oriented ENMT: other (assymetrical face) Respiratory: diminished breath sounds Cardiovascular: regular rate and rhythm Gastrointestinal: soft Musculoskeletal: joint tenderness (right hip) Results Result Diagram: 12/09/1622 12/09/16 0522 Results 24 hrs Laboratory Tests Test 12/09/16 05:22 White Blood Count 6.5 # Red Blood Count 2.75 L Hemoglobin 8.1 L Hematocrit 25.1 L Mean Corpuscular Volume 91.3 Mean Corpuscular Hemoglobin 29.5 Mean Corpuscular Hemoglobin Concent 32.3 Red Cell Distribution Width 16.8 H Platelet Count 144 Mean Platelet Volume 11.4 H Neutrophils % 87.5 H Lymphocytes % 4.5 L Monocytes % 7.0 Eosinophils % 0.2 Basophils % 0.3 Nucleated Red Blood Cells % 0.0 Neutrophils # 5.7 Lymphocytes # 0.3 L Monocytes # 0.5 Eosinophils # 0.0 Basophils # 0.0 Nucleated Red Blood Cells # 0.0 Sodium Level 140 Potassium Level 4.6 Chloride Level 106 Carbon Dioxide Level 19 L Anion Gap 20 H Blood Urea Nitrogen 95 H Creatinine 14.56 H Glucose Level 133 Calcium Level 7.9 L Total Bilirubin 0.0 L Direct Bilirubin 0.00 Indirect Bilirubin 0.0 Aspartate Amino Transf (AST/SGOT) 15 Alanine Aminotransferase (ALT/SGPT) 20 Alkaline Phosphatase 77 Total Protein 6.8 Albumin 3.2 L Globulin 3.60 H Albumin/Globulin Ratio 0.88 Medications Medications Current Medications Acetaminophen (Tylenol Tab) 650 mg Q6H PRN PO PAIN LEVEL 1-3 OR FEVER; Start 12/07/16 at 11:00 Acetaminophen/ Hydrocodone Bitart ([place] (5/325)) 1 tab Q6H PRN PO MODERATE PAIN LEVEL 4-6 Last administered on 12/07/16 13:38; Admin Dose 1 TAB; Start at 11:00 Docusate Sodium (Colace) 100 mg Q12H PRN PO CONSTIPATION; Start 12/07/16 at 11: 00 Magnesium Hydroxide (Milk Of Mag) 30 ml DAILY PRN PO CONSTIPATION; Start at 11:00 Bisacodyl (Dulcolax) 5 mg DAILY PRN PO CONSTIPATION; Start 12/07/16 at 11:00 Enoxaparin Sodium (Lovenox) 30 mg DAILY@12 SC Last administered on 12/07/16 13 :42; Admin Dose 30 MG; Start 12/07/16 at 12:00; Status Future hold Aspirin (Aspirin) 81 mg DAILY PO Last administered on 12/09/16 10:09; Admin Dose 81 MG; Start 12/08/16 at 09:00 Clonidine (Catapres) 0.2 mg BID PO Last administered on 12/09/16 10:15; Admin Dose 0.2 MG; Start 12/07/16 at 21:00 Furosemide (Lasix) 20 mg DAILY PO Last administered on 12/09/16 10:10; Admin Dose 20 MG; Start 12/08/16 at 09:00 Labetalol HCl (Normodyne) 100 mg BID PO Last administered on 12/09/16 10:14; Admin Dose 100 MG; Start 12/07/16 at 21:00; Status Future hold Nifedipine (Procardia Xl) 60 mg DAILY PO Last administered on 12/09/16 10:14; Admin Dose 60 MG; Start 12/08/16 at 09:00 Topiramate (Topamax Sprinkle) 25 mg BID PO Last administered on 12/09/16 10:07 ; Admin Dose 25 MG; Start 12/07/16 at 21:00 Tramadol HCl (Ultram) 50 mg Q6H PRN PO pain; Start 12/07/16 at 14:00 Morphine Sulfate (morphine) 2 mg Q4H PRN IV pain Last administered on 10:20; Admin Dose 2 MG; Start 12/07/16 at 16:30 Multivit/Ca Carb/ B Cmplx/FA/Prenat (Sommer-Samantha) 1 tab DAILY PO Last administered on 12/09/16 10:09; Admin Dose 1 TAB; Start 12/09/16 at 09:00 Folic Acid (Folic Acid) 1 mg DAILY PO Last administered on 12/09/16 10:09; Admin Dose 1 MG; Start 12/09/16 at 09:00 Epoetin Zacarias (Epogen (Esrd)) [facility] [place] ; Start 12/10/16 at 17:00 MANI PRECIADO Dec 09, 2016 14:00
[2016-12-09] MEDS: CEFAZOLIN 2 GM/50 ML (PMX) 50 ML IVPB SCH (17:28)
[2016-12-09] MEDS ORDERED: morphine 2 MG INJ IV ONE (17:30)
[2016-12-09] MEDS ORDERED: DIPHENHYDRAMINE 50 MG INJ IM PRN (21:00)
[2016-12-09] MEDS: DIPHENHYDRAMINE 50 MG INJ IV PRN (21:38)
[2016-12-10] VITALS (11 sets, daily range): BP systolic 136–169; BP diastolic 84–102; PULSE 70–82; RESP 18–20
[2016-12-10] MEDS: morphine 2 MG INJ IV PRN ×6 (01:34→22:01)
[2016-12-10] MEDS: DIPHENHYDRAMINE 50 MG INJ IV PRN ×3 (05:21→17:55)
[2016-12-10 06:14] LABS: BASOPHILS % 0.6 % (0.0-2.0); EOSINOPHILS # 0.4 10^3/ul (0.0-0.5); EOSINOPHILS % 5.5 % (0.0-7.0); HEMATOCRIT 28.2 % (37.0-47.0); LYMPHOCYTES # 1.4 10^3/ul (0.8-2.9); LYMPHOCYTES % 20.3 % (15.0-51.0); MEAN CORPUSCULAR HEMOGLOBIN 29.4 pg (29.0-33.0); MEAN CORPUSCULAR HGB CONC 31.9 g/dl (32.0-37.0); MEAN CORPUSCULAR VOLUME 92.2 fl (82.0-101.0); MEAN PLATELET VOLUME 11.6 fl (7.4-10.4); MONOCYTE # 0.8 10^3/ul (0.3-0.9); MONOCYTES % 11.7 % (0.0-11.0); NEUTROPHIL # 4.2 10^3/ul (1.6-7.5); NEUTROPHILS % 61.8 % (39.0-77.0); PLATELET COUNT 199 10^3/UL (140-415); RED BLOOD COUNT 3.06 10^6/ul (4.20-5.40); RED CELL DISTRIBUTION WIDTH 16.9 % (11.5-14.5); WHITE BLOOD COUNT 6.8 10^3/ul (4.8-10.8)
[2016-12-10 06:38] LABS: CALCIUM 8.6 mg/dl (8.4-10.2); CREATININE 10.97 mg/dl (0.44-1.00); POTASSIUM 4.3 mmol/L (3.5-5.1)
[2016-12-10] MEDS: SEVELAMER 800 MG TAB PO SCH ×3 (08:54→17:55)
[2016-12-10] MEDS: ASPIRIN 81 MG TAB PO SCH (08:54)
[2016-12-10] MEDS: TOPIRAMATE SPRINKLE 25 MG CAP PO SCH ×2 (08:54→21:02)
[2016-12-10] MEDS: FOLIC ACID 1 MG TAB PO SCH (08:54)
[2016-12-10] MEDS: LABETALOL 100 MG TAB PO SCH ×2 (08:56→21:02)
[2016-12-10] MEDS: FUROSEMIDE 20 MG TAB PO SCH (08:56)
[2016-12-10] MEDS: NIFEdipine (XL) 60 MG TAB PO SCH (08:56)
[2016-12-10] MEDS: MULTIVIT/CA CARB/B CMPLX/FA TAB PO SCH (08:57)
--- NOTE | 2016-12-10 11:27 | PN ---
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 f/u blood cultures ordered -per IDSA guidelines, line should come out given staph aureus. given line still in, anticipate 4-6 weeks of therapy. consider ID eval on Monday -line to be removed and new line placed. Current line was the result of an exchange over a guidewire. vascular surgeon working on UE evaluation HD as per renal pain control Exam/Review of Systems Vital Signs Vitals Vital Signs Date Time Temp Pulse Resp B/P Pulse Ox O2 Delivery O2 Flow Rate FiO2 12/10/16 07:40 97.5 67 20 136/86 100 12/09/16 21:30 Room Air 12/08/16 19:03 3.0 Intake and Output 12/09/16 12/09/16 12/10/16 15:00 23:00 07:00 Intake Total 1000 ml 50 ml 700 ml Output Total 3300 ml Balance -2300 ml 50 ml 700 ml Results Result Diagram: 12/10/16 0549 12/10/16 0549 Results 24 hrs Laboratory Tests Test 12/10/16 05:49 White Blood Count 6.8 Red Blood Count 3.06 L Hemoglobin 9.0 L Hematocrit 28.2 L Mean Corpuscular Volume 92.2 Mean Corpuscular Hemoglobin 29.4 Mean Corpuscular Hemoglobin Concent 31.9 L Red Cell Distribution Width 16.9 H Platelet Count 199 # Mean Platelet Volume 11.6 H Neutrophils % 61.8 Lymphocytes % 20.3 Monocytes % 11.7 H Eosinophils % 5.5 Basophils % 0.6 Nucleated Red Blood Cells % 0.0 Neutrophils # 4.2 Lymphocytes # 1.4 Monocytes # 0.8 Eosinophils # 0.4 Basophils # 0.0 Nucleated Red Blood Cells # 0.0 Sodium Level 144 Potassium Level 4.3 Chloride Level 106 Carbon Dioxide Level 23 Anion Gap 19 H Blood Urea Nitrogen 68 H Creatinine 10.97 #H Glucose Level 84 # Calcium Level 8.6 Medications Medications Current Medications Acetaminophen (Tylenol Tab) 650 mg Q6H PRN PO PAIN LEVEL 1-3 OR FEVER; Start 12/07/16 at 11:00 Acetaminophen/ Hydrocodone Bitart ([place] (5/325)) 1 tab Q6H PRN PO MODERATE PAIN LEVEL 4-6 Last administered on 12/07/16 13:38; Admin Dose 1 TAB; Start at 11:00 Docusate Sodium (Colace) 100 mg Q12H PRN PO CONSTIPATION; Start 12/07/16 at 11: 00 Magnesium Hydroxide (Milk Of Mag) 30 ml DAILY PRN PO CONSTIPATION; Start at 11:00 Bisacodyl (Dulcolax) 5 mg DAILY PRN PO CONSTIPATION; Start 12/07/16 at 11:00 Enoxaparin Sodium (Lovenox) 30 mg DAILY@12 SC Last administered on 12/07/16 13 :42; Admin Dose 30 MG; Start 12/07/16 at 12:00; Status Future hold Aspirin (Aspirin) 81 mg DAILY PO Last administered on 12/10/16 08:54; Admin Dose 81 MG; Start 12/08/16 at 09:00 Clonidine (Catapres) 0.2 mg BID PO Last administered on 12/09/16 20:32; Admin Dose 0.2 MG; Start 12/07/16 at 21:00 Furosemide (Lasix) 20 mg DAILY PO Last administered on 12/09/16 10:10; Admin Dose 20 MG; Start 12/08/16 at 09:00 Labetalol HCl (Normodyne) 100 mg BID PO Last administered on 12/09/16 20:32; Admin Dose 100 MG; Start 12/07/16 at 21:00; Status Future hold Nifedipine (Procardia Xl) 60 mg DAILY PO Last administered on 12/09/16 10:14; Admin Dose 60 MG; Start 12/08/16 at 09:00 Topiramate (Topamax Sprinkle) 25 mg BID PO Last administered on 12/10/16 08:54 ; Admin Dose 25 MG; Start 12/07/16 at 21:00 Tramadol HCl (Ultram) 50 mg Q6H PRN PO pain; Start 12/07/16 at 14:00 Morphine Sulfate (morphine) 2 mg Q4H PRN IV pain Last administered on 10:07; Admin Dose 2 MG; Start 12/07/16 at 16:30 Multivit/Ca Carb/ B Cmplx/FA/Prenat (Sommer-Samantha) 1 tab DAILY PO Last administered on 12/10/16 08:57; Admin Dose 1 TAB; Start 12/09/16 at 09:00 Folic Acid (Folic Acid) 1 mg DAILY PO Last administered on 12/10/16 08:54; Admin Dose 1 MG; Start 12/09/16 at 09:00 Epoetin Zacarias (Epogen (Esrd)) 4,000 units TuThSa@17 SC ; Start 12/10/16 at 17:00 Diphenhydramine HCl (Benadryl) 25 mg Q6H PRN PO ITCHING; Start 12/10/16 at 11: 30 BHARAT BLACK MD Dec 10, 2016 11:27
[2016-12-10] MEDS ORDERED: DIPHENHYDRAMINE 25 MG CAP PO PRN (11:30)
[2016-12-10] MEDS: ENOXAPARIN 30 MG/0.3 ML SYG SC SCH (12:00)
--- NOTE | 2016-12-10 13:44 | CONS ---
Date/Time of Note Date/Time of Note DATE: 12/10/16 TIME: 13:38 Assessment/Plan Assessment/Plan Chief Complaint/Hosp Course 1. The patient has left groin MASS, rule out seroma, rule out abscess, rule out hematoma. 2. SIRS with leukocytosis. 3. End-stage renal disease. 4. Hypertension, controlled. 5. PERMACATH RELATED INFECTION WITH BACTEREMIA. 6. Anemia. 7. History of [place] palsy. 8. LOWER EX EDEMA 9. Left Aris is not properly function Problems: Additional Assessment/Plan 1. CONTINUE HD 2. Spoke to regarding adjustment of Left Aris cath Consultation Date/Type/Reason Admit Date/Time Dec 07, 2016 at 10:40 Initial Consult Date 12/07/2016 Type of Consultation: nephrology Reason for Consultation Dr Knox 24 HR Interval Summary Constitutional: improved, no complaints Exam/Review of Systems Vital Signs Vitals Vital Signs Date Time Temp Pulse Resp B/P Pulse Ox O2 Delivery O2 Flow Rate FiO2 12/10/16 11:15 70 18 12/10/16 07:40 97.5 136/86 100 12/09/16 21:30 Room Air 12/08/16 19:03 3.0 Intake and Output 12/09/16 12/09/16 12/10/16 15:00 23:00 07:00 Intake Total 1000 ml 50 ml 700 ml Output Total 3300 ml Balance -2300 ml 50 ml 700 ml Exam Constitutional: alert, oriented Neck: supple Respiratory: diminished breath sounds Cardiovascular: regular rate and rhythm Results Result Diagram: 12/10/16 0549 12/10/16 0549 Results 24 hrs Laboratory Tests Test 12/10/16 05:49 White Blood Count 6.8 Red Blood Count 3.06 L Hemoglobin 9.0 L Hematocrit 28.2 L Mean Corpuscular Volume 92.2 Mean Corpuscular Hemoglobin 29.4 Mean Corpuscular Hemoglobin Concent 31.9 L Red Cell Distribution Width 16.9 H Platelet Count 199 # Mean Platelet Volume 11.6 H Neutrophils % 61.8 Lymphocytes % 20.3 Monocytes % 11.7 H Eosinophils % 5.5 Basophils % 0.6 Nucleated Red Blood Cells % 0.0 Neutrophils # 4.2 Lymphocytes # 1.4 Monocytes # 0.8 Eosinophils # 0.4 Basophils # 0.0 Nucleated Red Blood Cells # 0.0 Sodium Level 144 Potassium Level 4.3 Chloride Level 106 Carbon Dioxide Level 23 Anion Gap 19 H Blood Urea Nitrogen 68 H Creatinine 10.97 #H Glucose Level 84 # Calcium Level 8.6 Medications Medications Current Medications Acetaminophen (Tylenol Tab) 650 mg Q6H PRN PO PAIN LEVEL 1-3 OR FEVER; Start 12/07/16 at 11:00 Acetaminophen/ Hydrocodone Bitart ([place] (5/325)) 1 tab Q6H PRN PO MODERATE PAIN LEVEL 4-6 Last administered on 12/07/16 13:38; Admin Dose 1 TAB; Start at 11:00 Docusate Sodium (Colace) 100 mg Q12H PRN PO CONSTIPATION; Start 12/07/16 at 11: 00 Magnesium Hydroxide (Milk Of Mag) 30 ml DAILY PRN PO CONSTIPATION; Start at 11:00 Bisacodyl (Dulcolax) 5 mg DAILY PRN PO CONSTIPATION; Start 12/07/16 at 11:00 Enoxaparin Sodium (Lovenox) 30 mg DAILY@12 SC Last administered on 12/10/16 12 :00; Admin Dose 30 MG; Start 12/07/16 at 12:00; Status Future hold Aspirin (Aspirin) 81 mg DAILY PO Last administered on 12/10/16 08:54; Admin Dose 81 MG; Start 12/08/16 at 09:00 Clonidine (Catapres) 0.2 mg BID PO Last administered on 12/09/16 20:32; Admin Dose 0.2 MG; Start 12/07/16 at 21:00 Furosemide (Lasix) 20 mg DAILY PO Last administered on 12/09/16 10:10; Admin Dose 20 MG; Start 12/08/16 at 09:00 Labetalol HCl (Normodyne) 100 mg BID PO Last administered on 12/09/16 20:32; Admin Dose 100 MG; Start 12/07/16 at 21:00; Status Future hold Nifedipine (Procardia Xl) 60 mg DAILY PO Last administered on 12/09/16 10:14; Admin Dose 60 MG; Start 12/08/16 at 09:00 Topiramate (Topamax Sprinkle) 25 mg BID PO Last administered on 12/10/16 08:54 ; Admin Dose 25 MG; Start 12/07/16 at 21:00 Tramadol HCl (Ultram) 50 mg Q6H PRN PO pain; Start 12/07/16 at 14:00 Morphine Sulfate (morphine) 2 mg Q4H PRN IV pain Last administered on 10:07; Admin Dose 2 MG; Start 12/07/16 at 16:30 Multivit/Ca Carb/ B Cmplx/FA/Prenat (Sommer-Samantha) 1 tab DAILY PO Last administered on 12/10/16 08:57; Admin Dose 1 TAB; Start 12/09/16 at 09:00 Folic Acid (Folic Acid) 1 mg DAILY PO Last administered on 12/10/16 08:54; Admin Dose 1 MG; Start 12/09/16 at 09:00 Epoetin Zacarias (Epogen (Esrd)) 4,000 units TuThSa@17 SC ; Start 12/10/16 at 17:00 Diphenhydramine HCl (Benadryl) 25 mg Q6H PRN IV for itching Last administered on 12/10/16 11:47; Admin Dose 25 MG; Start 12/10/16 at 12:00 MANI PRECIADO Dec 10, 2016 13:44
[2016-12-10] MEDS: EPOETIN 4000 UNITS/1 ML INJ (ESRD) SC SCH (17:57)
[2016-12-11] MEDS: DIPHENHYDRAMINE 50 MG INJ IV PRN ×4 (00:17→23:59)
[2016-12-11] MEDS: morphine 2 MG INJ IV PRN ×3 (01:54→09:54)
[2016-12-11 02:00] VITALS: BP 159/84; RESP 19
[2016-12-11 06:33] LABS: BASOPHILS % 0.6 % (0.0-2.0); EOSINOPHILS # 0.3 10^3/ul (0.0-0.5); EOSINOPHILS % 6.6 % (0.0-7.0); HEMATOCRIT 24.9 % (37.0-47.0); HEMOGLOBIN 7.6 g/dl (12.0-16.0); LYMPHOCYTES # 1.3 10^3/ul (0.8-2.9); LYMPHOCYTES % 25.6 % (15.0-51.0); MEAN CORPUSCULAR HEMOGLOBIN 28.6 pg (29.0-33.0); MEAN CORPUSCULAR HGB CONC 30.5 g/dl (32.0-37.0); MEAN CORPUSCULAR VOLUME 93.6 fl (82.0-101.0); MEAN PLATELET VOLUME 11.7 fl (7.4-10.4); MONOCYTE # 0.8 10^3/ul (0.3-0.9); MONOCYTES % 14.8 % (0.0-11.0); NEUTROPHIL # 2.7 10^3/ul (1.6-7.5); NEUTROPHILS % 52.2 % (39.0-77.0); PLATELET COUNT 167 10^3/UL (140-415); RED BLOOD COUNT 2.66 10^6/ul (4.20-5.40); RED CELL DISTRIBUTION WIDTH 17.1 % (11.5-14.5); WHITE BLOOD COUNT 5.1 10^3/ul (4.8-10.8)
[2016-12-11 07:57] VITALS: BP 153/87; RESP 18
[2016-12-11] MEDS: TOPIRAMATE SPRINKLE 25 MG CAP PO SCH ×2 (08:56→20:34)
[2016-12-11] MEDS: SEVELAMER 800 MG TAB PO SCH ×3 (08:56→17:45)
[2016-12-11] MEDS: FOLIC ACID 1 MG TAB PO SCH (08:56)
[2016-12-11] MEDS: LABETALOL 100 MG TAB PO SCH ×2 (08:56→20:35)
[2016-12-11] MEDS: NIFEdipine (XL) 60 MG TAB PO SCH (08:56)
[2016-12-11] MEDS: MULTIVIT/CA CARB/B CMPLX/FA TAB PO SCH (08:56)
[2016-12-11] MEDS: ASPIRIN 81 MG TAB PO SCH (08:57)
[2016-12-11] MEDS: FUROSEMIDE 20 MG TAB PO SCH (08:57)
[2016-12-11] MEDS: ENOXAPARIN 30 MG/0.3 ML SYG SC SCH (13:36)
[2016-12-11 14:12] VITALS: BP 174/96; RESP 18
--- NOTE | 2016-12-11 14:31 | CONS ---
Date/Time of Note Date/Time of Note DATE: 12/11/16 TIME: 14:29 Assessment/Plan Assessment/Plan Chief Complaint/Hosp Course IMPRESSION: 1. The patient has left groin wound 2. Leukocytosis.better 3. End-stage renal disease. 4. Hypertension. 5. PERMACATH RELATED INF W BACTEREMIA. 6. Anemia. 7. History of [place] palsy. 8 LOWER EX EDEMA PLAN ANTIBIOTIC per vascular surgery HD mwf Problems: Consultation Date/Type/Reason Admit Date/Time Dec 07, 2016 at 10:40 Initial Consult Date RENAL Type of Consultation: nephrology 24 HR Interval Summary Constitutional: other (leg edema+) Exam/Review of Systems Vital Signs Vitals Vital Signs Date Time Temp Pulse Resp B/P Pulse Ox O2 Delivery O2 Flow Rate FiO2 12/11/16 14:12 98.2 70 18 174/96 100 12/09/16 21:30 Room Air 12/08/16 19:03 3.0 Intake and Output 12/10/16 12/10/16 12/11/16 15:00 23:00 07:00 Intake Total 300 ml 1000 ml 700 ml Output Total 3800 ml Balance -3500 ml 1000 ml 700 ml Exam Respiratory: clear to auscultation Cardiovascular: regular rate and rhythm Gastrointestinal: bowel sounds (+), soft Extremities: edema (++) Results Result Diagram: 12/11/16 0500 12/10/16 0549 Results 24 hrs Laboratory Tests Test 12/11/16 05:00 White Blood Count 5.1 # Red Blood Count 2.66 L Hemoglobin 7.6 L Hematocrit 24.9 L Mean Corpuscular Volume 93.6 Mean Corpuscular Hemoglobin 28.6 L Mean Corpuscular Hemoglobin Concent 30.5 L Red Cell Distribution Width 17.1 H Platelet Count 167 Mean Platelet Volume 11.7 H Neutrophils % 52.2 Lymphocytes % 25.6 Monocytes % 14.8 H Eosinophils % 6.6 Basophils % 0.6 Nucleated Red Blood Cells % 0.0 Neutrophils # 2.7 Lymphocytes # 1.3 Monocytes # 0.8 Eosinophils # 0.3 Basophils # 0.0 Nucleated Red Blood Cells # 0.0 Medications Medications Current Medications Acetaminophen (Tylenol Tab) 650 mg Q6H PRN PO PAIN LEVEL 1-3 OR FEVER; Start 12/07/16 at 11:00 Acetaminophen/ Hydrocodone Bitart ([place] (5/325)) 1 tab Q6H PRN PO MODERATE PAIN LEVEL 4-6 Last administered on 12/07/16 13:38; Admin Dose 1 TAB; Start at 11:00 Docusate Sodium (Colace) 100 mg Q12H PRN PO CONSTIPATION; Start 12/07/16 at 11: 00 Magnesium Hydroxide (Milk Of Mag) 30 ml DAILY PRN PO CONSTIPATION; Start at 11:00 Bisacodyl (Dulcolax) 5 mg DAILY PRN PO CONSTIPATION; Start 12/07/16 at 11:00 Enoxaparin Sodium (Lovenox) 30 mg DAILY@12 SC Last administered on 12/11/16 13 :36; Admin Dose 30 MG; Start 12/07/16 at 12:00; Status Future hold Aspirin (Aspirin) 81 mg DAILY PO Last administered on 12/11/16 08:57; Admin Dose 81 MG; Start 12/08/16 at 09:00 Clonidine (Catapres) 0.2 mg BID PO Last administered on 12/11/16 08:57; Admin Dose 0.2 MG; Start 12/07/16 at 21:00 Furosemide (Lasix) 20 mg DAILY PO Last administered on 12/11/16 08:57; Admin Dose 20 MG; Start 12/08/16 at 09:00 Labetalol HCl (Normodyne) 100 mg BID PO Last administered on 12/11/16 08:56; Admin Dose 100 MG; Start 12/07/16 at 21:00; Status Future hold Nifedipine (Procardia Xl) 60 mg DAILY PO Last administered on 12/11/16 08:56; Admin Dose 60 MG; Start 12/08/16 at 09:00 Topiramate (Topamax Sprinkle) 25 mg BID PO Last administered on 12/11/16 08:56 ; Admin Dose 25 MG; Start 12/07/16 at 21:00 Tramadol HCl (Ultram) 50 mg Q6H PRN PO pain; Start 12/07/16 at 14:00 Morphine Sulfate (morphine) 2 mg Q4H PRN IV pain Last administered on 09:54; Admin Dose 2 MG; Start 12/07/16 at 16:30 Multivit/Ca Carb/ B Cmplx/FA/Prenat (Sommer-Samantha) 1 tab DAILY PO Last administered on 12/11/16 08:56; Admin Dose 1 TAB; Start 12/09/16 at 09:00 Folic Acid (Folic Acid) 1 mg DAILY PO Last administered on 12/11/16 08:56; Admin Dose 1 MG; Start 12/09/16 at 09:00 Epoetin Zacarias (Epogen (Esrd)) 4,000 units TuThSa@17 SC Last administered on 12/10 17:57; Admin Dose 4,000 UNITS; Start 12/10/16 at 17:00 Diphenhydramine HCl (Benadryl) 25 mg Q6H PRN IV for itching Last administered on 12/11/16 05:33; Admin Dose 25 MG; Start 12/10/16 at 12:00 Hydromorphone HCl (Dilaudid) 1 mg Q4H PRN IV PAIN; Start 12/11/16 at 14:30 MIKE VEGA MD Dec 11, 2016 14:31
[2016-12-11] MEDS: DOCUSATE SODIUM 100 MG CAP PO PRN (14:42)
[2016-12-11] MEDS: HYDROmorphONE 1 MG/ML SYG IV PRN ×3 (14:43→23:58)
[2016-12-11] MEDS: BISACODYL (EC) 5 MG TAB PO PRN (14:43)
[2016-12-11 15:20] VITALS: BP 153/88; PULSE 78
--- NOTE | 2016-12-11 16:32 | PN ---
Date/Time of Note Date/Time of Note DATE: 12/11/16 TIME: 16:30 Assessment/Plan VTE Prophylaxis VTE Prophylaxis Intervention: SCD's Lines/Catheters IV Catheter Type (from Nrsg): Saline Lock Assessment/Plan Assessment/Plan 31 yo F with ESRD on HD here for L groin pain, found to have HD line tunnel infection with resultant MSSA bacteremia PLAN bacteremia from infected HD line -cont ancef with HD -TTE without evidence of IE, surveillance blood cultures 11.2 + indicative of lack of source control. f/u blood cultures negative -per IDSA guidelines, line should come out given staph aureus. given line still in, anticipate 4-6 weeks of therapy. consider ID eval on Monday -line to be removed and new line placed. Current line was the result of an exchange over a guidewire. vascular surgeon working on UE evaluation planned for Monday HD as per renal pain control Subjective 24 Hr Interval Summary Free Text/Dictation pain not well controlled per patient Exam/Review of Systems Vital Signs Vitals Vital Signs Date Time Temp Pulse Resp B/P Pulse Ox O2 Delivery O2 Flow Rate FiO2 12/11/16 14:12 98.2 70 18 174/96 100 12/09/16 21:30 Room Air 12/08/16 19:03 3.0 Intake and Output 12/10/16 12/10/16 12/11/16 15:00 23:00 07:00 Intake Total 300 ml 1000 ml 700 ml Output Total 3800 ml Balance -3500 ml 1000 ml 700 ml Exam itchy no mrg lungs clear abd soft no rashes Results Result Diagram: 12/11/16 0500 12/10/16 0549 Results 24 hrs Laboratory Tests Test 12/11/16 05:00 White Blood Count 5.1 # Red Blood Count 2.66 L Hemoglobin 7.6 L Hematocrit 24.9 L Mean Corpuscular Volume 93.6 Mean Corpuscular Hemoglobin 28.6 L Mean Corpuscular Hemoglobin Concent 30.5 L Red Cell Distribution Width 17.1 H Platelet Count 167 Mean Platelet Volume 11.7 H Neutrophils % 52.2 Lymphocytes % 25.6 Monocytes % 14.8 H Eosinophils % 6.6 Basophils % 0.6 Nucleated Red Blood Cells % 0.0 Neutrophils # 2.7 Lymphocytes # 1.3 Monocytes # 0.8 Eosinophils # 0.3 Basophils # 0.0 Nucleated Red Blood Cells # 0.0 Medications Medications Current Medications Acetaminophen (Tylenol Tab) 650 mg Q6H PRN PO PAIN LEVEL 1-3 OR FEVER; Start 12/07/16 at 11:00 Acetaminophen/ Hydrocodone Bitart ([place] (5/325)) 1 tab Q6H PRN PO MODERATE PAIN LEVEL 4-6 Last administered on 12/07/16 13:38; Admin Dose 1 TAB; Start at 11:00 Docusate Sodium (Colace) 100 mg Q12H PRN PO CONSTIPATION Last administered on 12/11/16 14:42; Admin Dose 100 MG; Start 12/07/16 at 11:00 Magnesium Hydroxide (Milk Of Mag) 30 ml DAILY PRN PO CONSTIPATION; Start at 11:00 Bisacodyl (Dulcolax) 5 mg DAILY PRN PO CONSTIPATION Last administered on 14:43; Admin Dose 5 MG; Start 12/07/16 at 11:00 Enoxaparin Sodium (Lovenox) 30 mg DAILY@12 SC Last administered on 12/11/16 13 :36; Admin Dose 30 MG; Start 12/07/16 at 12:00; Status Future hold Aspirin (Aspirin) 81 mg DAILY PO Last administered on 12/11/16 08:57; Admin Dose 81 MG; Start 12/08/16 at 09:00 Furosemide (Lasix) 20 mg DAILY PO Last administered on 12/11/16 08:57; Admin Dose 20 MG; Start 12/08/16 at 09:00 Labetalol HCl (Normodyne) 100 mg BID PO Last administered on 12/11/16 08:56; Admin Dose 100 MG; Start 12/07/16 at 21:00; Status Future hold Nifedipine (Procardia Xl) 60 mg DAILY PO Last administered on 12/11/16 08:56; Admin Dose 60 MG; Start 12/08/16 at 09:00 Topiramate (Topamax Sprinkle) 25 mg BID PO Last administered on 12/11/16 08:56 ; Admin Dose 25 MG; Start 12/07/16 at 21:00 Tramadol HCl (Ultram) 50 mg Q6H PRN PO pain; Start 12/07/16 at 14:00 Morphine Sulfate (morphine) 2 mg Q4H PRN IV pain Last administered on 09:54; Admin Dose 2 MG; Start 12/07/16 at 16:30 Multivit/Ca Carb/ B Cmplx/FA/Prenat (Sommer-Samantha) 1 tab DAILY PO Last administered on 12/11/16 08:56; Admin Dose 1 TAB; Start 12/09/16 at 09:00 Folic Acid (Folic Acid) 1 mg DAILY PO Last administered on 12/11/16 08:56; Admin Dose 1 MG; Start 12/09/16 at 09:00 Epoetin Zacarias (Epogen (Esrd)) 4,000 units TuThSa@17 SC Last administered on 12/10 17:57; Admin Dose 4,000 UNITS; Start 12/10/16 at 17:00 Diphenhydramine HCl (Benadryl) 25 mg Q6H PRN IV for itching Last administered on 12/11/16 05:33; Admin Dose 25 MG; Start 12/10/16 at 12:00 Hydromorphone HCl (Dilaudid) 1 mg Q4H PRN IV PAIN Last administered on 14:43; Admin Dose 1 MG; Start 12/11/16 at 14:30 Clonidine (Catapres) 0.2 mg TID PO ; Start 12/11/16 at 21:00 BHARAT BLACK MD Dec 11, 2016 16:32
--- NOTE | 2016-12-11 17:19 | PN ---
Date/Time of Note Date/Time of Note DATE: 12/11/16 TIME: 17:16 Assessment/Plan Lines/Catheters IV Catheter Type (from [facility]): Saline Lock Assessment/Plan Chief Complaint/Hosp Course -Endstage renal disease and central stenosis: It seems the patient has had a longstanding history of multiple chest wall catheters and fistula creations in which have all failed. There is a strong suggestion that patient has central occlusion/stenosis in which she would need to be further evaluated for possible creation of new advanced fistula. -S/P Left groin catheter exchange to a Aris catheter -Cultures of the catheter tip Staph a. -Schedule for bilateral upper extremity venograms to evaluate for possible new chest wall catheter/HeRO catheter placement. -Optimize vascular status (BP meds, diet, nutrition, exercise, sugar control, anti-platelets). -Discussed findings, plan and management with the patient and she understands. -Thank you for allowing us to partake in the care of your patient. Please call with any questions. Problems: Subjective 24 Hr Interval Summary no new vascular events overnight, some changes with flow with catheter Exam/Review of Systems Vital Signs Vitals Vital Signs Date Time Temp Pulse Resp B/P Pulse Ox O2 Delivery O2 Flow Rate FiO2 12/11/16 15:20 78 153/88 12/11/16 14:12 98.2 18 100 12/09/16 21:30 Room Air 12/08/16 19:03 3.0 Intake and Output 12/10/16 12/10/16 12/11/16 15:00 23:00 07:00 Intake Total 300 ml 1000 ml 700 ml Output Total 3800 ml Balance -3500 ml 1000 ml 700 ml Exam Free Text/Dictation GENERAL: Alert and oriented x3, PULMONARY: Clear to auscultation bilaterally. CARDIOVASCULAR: S1, S2 present. ABDOMEN: Soft, nontender, nondistended. Bowel sounds positive. Truncal obesity. EXTREMITIES: Right lower extremity palpable femoral pulse, faint pedal pulse. Motor, sensory intact. Cap refill 2 to 3 seconds. Left lower extremity groin catheter intact, nontender upon palpation, erythema resolving, no purulence identified. Palpable femoral pulse, faint pedal pulse. Motor, sensory intact. Left upper extremity palpable brachial pulse. Motor, sensory intact. Cap refill 2 seconds. Surgical scar is well healed. Previous fistula that has no bruit or thrill except antecubital fossa that is just pulsatile. Results Result Diagram: 12/11/16 0500 12/10/16 0549 JULISSA NI MD Dec 11, 2016 17:19
[2016-12-11 19:46] VITALS: BP 169/102; RESP 19
[2016-12-12] VITALS (13 sets, daily range): BP systolic 135–177; BP diastolic 80–100; PULSE 68–89; RESP 20
[2016-12-12] MEDS: HYDROmorphONE 1 MG/ML SYG IV PRN ×4 (04:14→15:59)
[2016-12-12] MEDS: DIPHENHYDRAMINE 50 MG INJ IV PRN ×3 (06:07→13:01)
[2016-12-12 06:25] LABS: BASOPHIL # 0.1 10^3/ul (0.0-0.1); EOSINOPHILS # 0.5 10^3/ul (0.0-0.5); HEMATOCRIT 26.5 % (37.0-47.0); HEMOGLOBIN 8.1 g/dl (12.0-16.0); LYMPHOCYTES # 1.7 10^3/ul (0.8-2.9); LYMPHOCYTES % 27.5 % (15.0-51.0); MEAN CORPUSCULAR HEMOGLOBIN 28.5 pg (29.0-33.0); MEAN CORPUSCULAR HGB CONC 30.6 g/dl (32.0-37.0); MEAN CORPUSCULAR VOLUME 93.3 fl (82.0-101.0); MEAN PLATELET VOLUME 11.2 fl (7.4-10.4); MONOCYTE # 0.8 10^3/ul (0.3-0.9); MONOCYTES % 12.5 % (0.0-11.0); NEUTROPHIL # 3.2 10^3/ul (1.6-7.5); NEUTROPHILS % 50.4 % (39.0-77.0); PLATELET COUNT 187 10^3/UL (140-415); RED BLOOD COUNT 2.84 10^6/ul (4.20-5.40); RED CELL DISTRIBUTION WIDTH 16.6 % (11.5-14.5); WHITE BLOOD COUNT 6.3 10^3/ul (4.8-10.8)
[2016-12-12 07:14] LABS: ALBUMIN 3.6 g/dl (3.3-4.9); ALBUMIN/GLOBULIN RATIO 1.05; CALCIUM 8.2 mg/dl (8.4-10.2); CREATININE 10.26 mg/dl (0.44-1.00); POTASSIUM 4.9 mmol/L (3.5-5.1)
[2016-12-12] MEDS: ASPIRIN 81 MG TAB PO SCH (08:14)
[2016-12-12] MEDS: SEVELAMER 800 MG TAB PO SCH ×3 (08:15→18:00)
[2016-12-12] MEDS: MULTIVIT/CA CARB/B CMPLX/FA TAB PO SCH (08:15)
[2016-12-12] MEDS: NIFEdipine (XL) 60 MG TAB PO SCH (08:15)
[2016-12-12] MEDS: LABETALOL 100 MG TAB PO SCH ×2 (08:15→21:00)
[2016-12-12] MEDS: TOPIRAMATE SPRINKLE 25 MG CAP PO SCH ×2 (08:15→21:00)
[2016-12-12] MEDS: FOLIC ACID 1 MG TAB PO SCH (08:16)
[2016-12-12] MEDS: FUROSEMIDE 20 MG TAB PO SCH (08:16)
[2016-12-12] MEDS ORDERED: DIPHENHYDRAMINE 50 MG INJ IV ONE (09:30)
--- NOTE | 2016-12-12 10:15 | HPN ---
Date/Time of Note Date/Time of Note DATE: 12/12/16 TIME: 10:15 Interval H&P Admission Note Pt. seen H&P reviewed: No system changes JULISSA NI MD Dec 12, 2016 10:15
[2016-12-12] MEDS ORDERED: HEPARIN 1000 UNITS/ML 10 ML INJ CATHETER ONE (10:30)
--- NOTE | 2016-12-12 10:30 | SIPON ---
Date/Time of Note Date/Time of Note DATE: 12/12/16 TIME: 10:29 Operative Report Preoperative Diagnosis ESRD AND CENTRAL STENOSIS Postoperative Diagnosis SAME Operation/Procedure Performed BILATERAL UPPER EXTREMITY VENOGRAMS Surgeon see signature line product safety technical assistant NONE Anesthesia: other (NONE) Estimated blood loss: none Transfusion Required none Specimen NONE Grafts/Implants none Complications none JULISSA NI MD Dec 12, 2016 10:30
[2016-12-12] MEDS ORDERED: IODIXANOL LOCM 50 ML BTL ONE (10:44)
[2016-12-12] MEDS ORDERED: hydrALAzine 20 MG INJ ONE (10:45)
--- NOTE | 2016-12-12 11:48 | OPR ---
DATE OF OPERATION: 12/12/2016 SURGEON: Mark Grimes MD. PREOPERATIVE DIAGNOSIS: End-stage renal disease and central stenosis. POSTOPERATIVE DIAGNOSIS: End-stage renal disease and central stenosis. CONTRAST: As recorded. HEPARIN: None. COMPLICATIONS: None. INDICATIONS: This is a 31-year-old female who presented with malfunctioning left groin permanent ca theter with possible line sepsis. Patient has had histories of multiple bilateral upper extremity f istula creations and multiple chest wall catheters that have failed and they have become nonfunction ing. The patient is currently being evaluated for a possible advanced fistula creation. Therefore, the patient was described the risks, benefits and alternatives and risks including but not limited to , myocardial infarction, stroke contrast nephrotoxicity, pneumonia, infection. The patient has agreed to proceed. PROCEDURES: 1. Bilateral upper extremity venogram. 2. Central venogram. FINDINGS: 1. Right cephalic vein not visualized. Right brachial vein, patent. 2. Right basilic vein not visualized. 3. Right axillary vein is patent. 4. Right subclavian vein with mild stenosis. 5. Right subclavian vein internal jugular vein, mild to moderate stenosis. 6. Right brachiocephalic vein with moderate to severe stenosis. Superior vena cava is patent. 7. Left cephalic vein is not well visualized. Left basilic vein is not visualized. Left brachial vein is patent. 8. Left brachial vein is patent. Left cephalic vein is small in caliber with a distal stent within it, that extends to the cephalic arch and has got severe disease throughout its course. Left axill mellissa vein seems to be patent. Left subclavian vein is patent up to its distal aspect where there is mild to moderate disease. Left internal jugular vein is not visualized. The left brachiocephalic v ein has moderate to severe disease. Unable to see adequate flow from the left brachiocephalic vein to the superior vena cava. DESCRIPTION OF PROCEDURE: The patient was brought into the angio general laborer and placed on the angiogr am table in supine position. Timeout was performed. The patient identification was correct. Two I V sites were placed in the distal aspect of the arm. Contrast was injected and the findings are not ed above. I performed bilateral upper extremity venogram and central venogram and findings are note d. The patient tolerated the procedure well and was taken back to her surgical floor in [facility]. PLAN: Will discuss with the patient for possibility of new AV graft creations. Dictated By: MARK ZUÑIGA/BRADLEY Conf#: [id number] DID#: [id number]
[2016-12-12] MEDS: ENOXAPARIN 30 MG/0.3 ML SYG SC SCH (12:48)
--- NOTE | 2016-12-12 14:15 | CONS ---
DATE OF ADMISSION: 12/07/2016 DATE OF CONSULTATION: 12/12/2016 INFECTIOUS DISEASE CONSULTATION REASON FOR CONSULTATION: Antibiotic management. HISTORY OF PRESENT ILLNESS: Carolann Taylor is a 31-year-old female with end-stage renal disease o n hemodialysis with a history of hypertension, who presents with pain in the left groin for 2 days. She had no fever or chills. She reports discharge from the left groin earlier today. This was on 12/07/2016. The patient was started on empiric daptomycin. She has a ____ ALLERGY, and vascular robledo rgery was consulted for line removal with placement of a new line. On admission, her white count wa s 12.2, H and H of 8.1 and 25.6, platelet count of 135,000. BUN and creatinine was 83/13.38, curren tly 63/10.26 and her white count today is 6.3. Urine was negative for nitrites, positive for 1+ say kocyte esterase, but only 7 white cells per high powered field. Microbiology: She grew out Staph a ureus out of 2 sets of blood cultures on 12/07/2016, and also from the wound culture on 12/07/2016. She also had Staphylococcus aureus in the catheter tip, and also blood culture on 12/08/2016, and n ow she has oxacillin sensitive Staphylococcus aureus growing; however, on 12/10/2016, both blood cul tures were negative. An ultrasound of the soft tissues of the left inguinal area dated 12/07/2016 d emonstrated dialysis catheter in the left inguinal region, but this was removed. Images demonstrate d guidewire in the right femoral vein and inferior vena cava. The final image demonstrates a tempor mellissa dialysis catheter entering via the right femoral vein with the tip not well seen. HOSPITAL COURSE: On 12/12/2016, the patient was brought into the angiocath lab, two IV sites were p laced in the distal aspect of the arm. He performed bilateral upper extremity venogram and central venogram, and findings are noted. He will consider a new AV graft creation. This is Dr. Ni. A TTE was done without evidence of infective endocarditis. Followup blood cultures were negative. A line was to be removed and a new line placed. line was a result of an exchange over a brendon dewire. Vascular surgery working on upper extremity evaluation planned for today. PAST MEDICAL HISTORY: Operations as outlined. FAMILY HISTORY: Noncontributory. SOCIAL HISTORY: She is a current every day smoker. She does not drink or abuse drugs. ALLERGIES: NONE TO ____, SULFA OR FOODS. MEDICATIONS: Per chart. REVIEW OF SYSTEMS: As per HPI. PHYSICAL EXAMINATION: GENERAL: The patient is a well-developed, well-nourished female, alert, responsive, in no acute dis tress. VITAL SIGNS: Stable. She is afebrile. SKIN: Without generalized rash. HEENT: Within normal limits. NECK: Supple. LYMPH NODES: None palpable. CHEST: Decreased breath sounds at the bases. HEART: Without murmur or gallop. ABDOMEN: Soft, nontender, without organosplenomegaly or masses. EXTREMITIES: Without cyanosis, clubbing or edema. RECTAL AND GENITAL: Deferred. NEUROLOGIC: No focal neurological abnormalities. IMPRESSION AND PLAN: The patient will be continued on either cefazolin or ceftriaxone. The line th at was placed over a guidewire should come out, a new temporary line should be placed, and the patie nt should be treated for at least 4 weeks, possibly 6 since she is a dialysis patient. I will dicta te my findings to the hospitalist, and to Dr. Ni. Dictated By: MARK GREWAL MD, JD/BRADLEY Conf#: [id number] DID#: [id number] CC: LORENA TIRADO; JULISSA NI MD;*[facility]*
--- NOTE | 2016-12-12 14:40 | CONS ---
DATE OF ADMISSION: 12/07/2016 DATE OF CONSULTATION: 12/12/2016 REASON FOR CONSULTATION: Preoperative evaluation chest pain, assess for acute coronary syndrome. REQUESTING PHYSICIAN: Dr. Ni from the vascular surgery service. HISTORY OF PRESENT ILLNESS: Ms. Taylor is a 31-year-old female with a history of end-stage renal disease, hemodialysis, migraine headaches who had initially presented with pain around her dialysis catheter site in the left groin. Patient additionally had multiple chest catheters that have failed. The patient has been taken for bilateral upper extremity venograms and is to undergo possible creation of AV fistula. The patient has complaints of substernal chest pain described as a stabbing-like component, lasting seconds to minutes, occurring at rest. Given these findings, cardiology consult was requested. PAST MEDICAL HISTORY: As above in HPI. MEDICATIONS CURRENTLY IN HOSPITAL: 1. Clonidine 0.2 mg p.o. t.i.d. 2. Dilaudid p.r.n. 3. Diphenhydramine p.r.n. 4. Folic acid 1 mg daily. 5. Ceftriaxone. 6. Aspirin 81 mg daily. 7. Lasix 20 mg daily. 8. Procardia 60 mg daily. 9. Labetalol 100 mg p.o. b.i.d. 10. Topamax 25 mg b.i.d. 11. Morphine p.r.n. pain. 12. Lovenox p.r.n. 13. Renagel p.r.n. 14. Tylenol p.r.n. 15. [place] p.r.n. 16. Milk of magnesia p.r.n. 17. Dulcolax. ALLERGIES: VANCOMYCIN. SOCIAL HISTORY: No tobacco, ETOH or illicit drug use. FAMILY HISTORY: No history of cardiac or early CAD. REVIEW OF SYSTEMS: As above in HPI. CONSTITUTIONAL: No fevers, chills. PULMONARY: No current shortness of breath.. CARDIOVASCULAR: Intermittent chest pain. GASTROINTESTINAL: No vomiting. GENITOURINARY: End-stage renal disease. PSYCHIATRIC: No documented psych history. NEUROLOGIC: No documented history of CVA. ENDOCRINE: No documented history of diabetes mellitus. PHYSICAL EXAMINATION: VITAL SIGNS: Temperature of 98.7, blood pressure 149/95, pulse 68, respiratory rate 15. GENERAL: The patient is alert, awake, complaining of intermittent substernal chest pain. NECK: JVP approximately 9 cm water. CHEST: Fair movement throughout with decreased breath sounds at bases bilaterally. HEART: Regular rate and rhythm. Normal S1, S2, I/ systolic murmur, nondisplaced PMI. ABDOMEN: Positive bowel sounds, soft. EXTREMITIES: Trace edema, 1+ pulses bilateral posterior left groin catheter, no significant erythema around it. LABORATORIES: Most recent from today, white count 6.3, hemoglobin 8.1, platelet count 187. Sodium 138, potassium 4.9, creatinine of 10.2, INR 1.1. UA borderline. A 2-D echo interpreted by myself on 12/08 at that time revealed a preserved EF of 55-60% with mild tricuspid and mitral regurgitation. ECG dated 12/07/2016 revealed normal sinus rhythm, rate of 80, normal axis, normal intervals with nonspecific ST abnormalities. IMPRESSION: 1. Preoperative evaluation prior to creation of AV fistula. 2. Chest pain, atypical at this time, normal ejection fraction on echo. 3. Hypertension, mildly elevated. 4. End-stage renal disease on hemodialysis. 5. History of migraine headaches. 6. History of multiple failed chest wall catheters likely cause the patient's intermittent chest pains. RECOMMENDATIONS: At this time would: 1. Check serial EKGs to assess for any changes change in the setting of chest pain and thus repeat EKG in morning, EKG for complaints of chest pain or change in rhythm. 2. Would send troponins along with CK and CK-MB, given lack of adequate clearance troponins in setting of renal failure q.6h. x2 in anticipation of upcoming surgery. 3. Continue the patient's aspirin for prophylaxis against cardiovascular events. 4. Continue the patient's current clonidine and Procardia as well as labetalol with possible need for further up titration to improve overall systolic blood pressure control and also give patient sublingual nitroglycerin for recurrent episodes of chest pain. 5. If the patient does rule out for myocardial infarction with negative troponins x3, then I believe this patient will be without cardiac contraindication to proceeding to procedure for creation of AV fistula at moderate cardiovascular risk. Dictated By: ETHAN JUAN/BRADLEY Conf#: [id number] DID#: [id number] CC: JULISSA NI MD;*[facility]* MTDD
--- NOTE | 2016-12-12 16:12 | PN ---
Date/Time of Note Date/Time of Note DATE: 12/12/16 TIME: 16:09 Assessment/Plan VTE Prophylaxis VTE Prophylaxis Intervention: SCD's Lines/Catheters IV Catheter Type (from Nrsg): Saline Lock Assessment/Plan Chief Complaint/Hosp Course Assessment and plan 1. Bacteremia with MSSA. ID consult was consulted. Continue antibiotics. Left groin dialysis catheter was already replaced per vascular surgeon. Will follow. 2. End-stage renal disease. Continue on dialysis per nephrology recommendations. Tentative plan for AV fistula 3. Hypertension. Continue antihypertensives and adjust as needed 4. History of migraines. Continue with analgesics as needed. Disposition plan: Patient still with reports of pain on left groin. Will get pain management physician to follow. Continue on dialysis. Follow-up with vascular surgery recommendations. Discussed with Dr. umanzor Problems: Subjective 24 Hr Interval Summary Free Text/Dictation Still reports having left Leg pain. Exam/Review of Systems Vital Signs Vitals Vital Signs Date Time Temp Pulse Resp B/P Pulse Ox O2 Delivery O2 Flow Rate FiO2 12/12/16 13:55 98.0 79 20 151/94 100 12/09/16 21:30 Room Air 12/08/16 19:03 3.0 Intake and Output 12/11/16 12/11/16 12/12/16 15:00 23:00 07:00 Intake Total 880 ml 550 ml Output Total 2 ml Balance 880 ml 548 ml Exam Constitutional: alert, oriented Psych: nl mood/affect Head: normocephalic Respiratory: clear to auscultation, normal air movement Cardiovascular: regular rate and rhythm Gastrointestinal: non-tender, soft Musculoskeletal: swelling (swelling left lower extremity) Neurological: [employer]IST II-XII intact, nl mental status, nl speech Skin: other (dialysis catheter left groin ) Results Result Diagram: 12/12/16 0545 12/12/16 0544 Results 24 hrs Laboratory Tests Test 12/12/16 05:44 12/12/16 05:45 Sodium Level 138 Potassium Level 4.9 Chloride Level 102 Carbon Dioxide Level 22 Anion Gap 19 H Blood Urea Nitrogen 63 H Creatinine 10.26 H Glucose Level 86 Calcium Level 8.2 L Total Bilirubin 0.0 L Direct Bilirubin 0.00 Indirect Bilirubin 0.0 Aspartate Amino Transf (AST/SGOT) 16 Alanine Aminotransferase (ALT/SGPT) 17 Alkaline Phosphatase 77 Total Protein 7.0 Albumin 3.6 Globulin 3.40 H Albumin/Globulin Ratio 1.05 White Blood Count 6.3 # Red Blood Count 2.84 L Hemoglobin 8.1 L Hematocrit 26.5 L Mean Corpuscular Volume 93.3 Mean Corpuscular Hemoglobin 28.5 L Mean Corpuscular Hemoglobin Concent 30.6 L Red Cell Distribution Width 16.6 H Platelet Count 187 Mean Platelet Volume 11.2 H Neutrophils % 50.4 Lymphocytes % 27.5 Monocytes % 12.5 H Eosinophils % 8.0 H Basophils % 1.0 Nucleated Red Blood Cells % 0.0 Neutrophils # 3.2 Lymphocytes # 1.7 Monocytes # 0.8 Eosinophils # 0.5 Basophils # 0.1 Nucleated Red Blood Cells # 0.0 Medications Medications Current Medications Acetaminophen (Tylenol Tab) 650 mg Q6H PRN PO PAIN LEVEL 1-3 OR FEVER; Start 12/07/16 at 11:00 Acetaminophen/ Hydrocodone Bitart ([place] (5/325)) 1 tab Q6H PRN PO MODERATE PAIN LEVEL 4-6 Last administered on 12/07/16 13:38; Admin Dose 1 TAB; Start at 11:00 Docusate Sodium (Colace) 100 mg Q12H PRN PO CONSTIPATION Last administered on 12/11/16 14:42; Admin Dose 100 MG; Start 12/07/16 at 11:00 Magnesium Hydroxide (Milk Of Mag) 30 ml DAILY PRN PO CONSTIPATION; Start at 11:00 Bisacodyl (Dulcolax) 5 mg DAILY PRN PO CONSTIPATION Last administered on 14:43; Admin Dose 5 MG; Start 12/07/16 at 11:00 Enoxaparin Sodium (Lovenox) 30 mg DAILY@12 SC Last administered on 12/12/16 12 :48; Admin Dose 30 MG; Start 12/07/16 at 12:00; Status Future hold Aspirin (Aspirin) 81 mg DAILY PO Last administered on 12/12/16 08:14; Admin Dose 81 MG; Start 12/08/16 at 09:00 Furosemide (Lasix) 20 mg DAILY PO Last administered on 12/12/16 08:16; Admin Dose 20 MG; Start 12/08/16 at 09:00 Labetalol HCl (Normodyne) 100 mg BID PO Last administered on 12/12/16 08:15; Admin Dose 100 MG; Start 12/07/16 at 21:00; Status Future hold Nifedipine (Procardia Xl) 60 mg DAILY PO Last administered on 12/12/16 08:15; Admin Dose 60 MG; Start 12/08/16 at 09:00 Topiramate (Topamax Sprinkle) 25 mg BID PO Last administered on 12/12/16 08:15 ; Admin Dose 25 MG; Start 12/07/16 at 21:00 Tramadol HCl (Ultram) 50 mg Q6H PRN PO pain; Start 12/07/16 at 14:00 Morphine Sulfate (morphine) 2 mg Q4H PRN IV pain Last administered on 09:54; Admin Dose 2 MG; Start 12/07/16 at 16:30 Multivit/Ca Carb/ B Cmplx/FA/Prenat (Sommer-Samantha) 1 tab DAILY PO Last administered on 12/12/16 08:15; Admin Dose 1 TAB; Start 12/09/16 at 09:00 Folic Acid (Folic Acid) 1 mg DAILY PO Last administered on 12/12/16 08:16; Admin Dose 1 MG; Start 12/09/16 at 09:00 Epoetin Zacarias (Epogen (Esrd)) 4,000 units TuTa@17 SC Last administered on 12/10 17:57; Admin Dose 4,000 UNITS; Start 12/10/16 at 17:00 Diphenhydramine HCl (Benadryl) 25 mg Q6H PRN IV for itching Last administered on 12/12/16 13:01; Admin Dose 25 MG; Start 12/10/16 at 12:00 Hydromorphone HCl (Dilaudid) 1 mg Q4H PRN IV PAIN Last administered on 15:59; Admin Dose 1 MG; Start 12/11/16 at 14:30 Clonidine (Catapres) 0.2 mg TID PO Last administered on 12/12/16 12:52; Admin Dose 0.2 MG; Start 12/11/16 at 21:00 TACHO ORTEGA Dec 12, 2016 16:12
[2016-12-12 22:05] LABS: CK-MB 0.25 ng/ml (0.0-2.4); CREATINE KINASE 33 IU/L (23-200)
[2016-12-12 22:08] LABS: TROPONIN-I < 0.012 ng/ml (0.00-0.12)
--- NOTE | 2016-12-12 23:18 | CONS ---
Date/Time of Note Date/Time of Note DATE: 12/12/16 TIME: 23:16 Assessment/Plan Assessment/Plan Chief Complaint/Hosp Course IMPRESSION: 1. The patient has left groin wound 2. Leukocytosis.better 3. End-stage renal disease. 4. Hypertension. 5. cath related inf 6. Anemia. 7. History of [place] palsy. 8 LOWER EX EDEMA 9 s/p venogram finding seen PLAN ANTIBIOTIC per vascular surgery HD mwf Problems: Consultation Date/Type/Reason Admit Date/Time Dec 07, 2016 at 10:40 Initial Consult Date RENAL 24 HR Interval Summary Constitutional: other (s/p venogram) Exam/Review of Systems Vital Signs Vitals Vital Signs Date Time Temp Pulse Resp B/P Pulse Ox O2 Delivery O2 Flow Rate FiO2 12/12/16 13:55 98.0 79 20 151/94 100 12/09/16 21:30 Room Air 12/08/16 19:03 3.0 Intake and Output 12/11/16 12/11/16 12/12/16 15:00 23:00 07:00 Intake Total 880 ml 550 ml Output Total 2 ml Balance 880 ml 548 ml Exam Respiratory: clear to auscultation Cardiovascular: regular rate and rhythm Gastrointestinal: bowel sounds (+), soft Extremities: edema (+) Results Result Diagram: 12/12/16 0545 12/12/16 0544 Results 24 hrs Laboratory Tests Test 12/12/16 05:44 12/12/16 05:45 12/12/16 20:00 Sodium Level 138 Potassium Level 4.9 Chloride Level 102 Carbon Dioxide Level 22 Anion Gap 19 H Blood Urea Nitrogen 63 H Creatinine 10.26 H Glucose Level 86 Calcium Level 8.2 L Total Bilirubin 0.0 L Direct Bilirubin 0.00 Indirect Bilirubin 0.0 Aspartate Amino Transf (AST/SGOT) 16 Alanine Aminotransferase (ALT/SGPT) 17 Alkaline Phosphatase 77 Total Protein 7.0 Albumin 3.6 Globulin 3.40 H Albumin/Globulin Ratio 1.05 White Blood Count 6.3 # Red Blood Count 2.84 L Hemoglobin 8.1 L Hematocrit 26.5 L Mean Corpuscular Volume 93.3 Mean Corpuscular Hemoglobin 28.5 L Mean Corpuscular Hemoglobin Concent 30.6 L Red Cell Distribution Width 16.6 H Platelet Count 187 Mean Platelet Volume 11.2 H Neutrophils % 50.4 Lymphocytes % 27.5 Monocytes % 12.5 H Eosinophils % 8.0 H Basophils % 1.0 Nucleated Red Blood Cells % 0.0 Neutrophils # 3.2 Lymphocytes # 1.7 Monocytes # 0.8 Eosinophils # 0.5 Basophils # 0.1 Nucleated Red Blood Cells # 0.0 Creatine Kinase 33 Creatine Kinase Index 0.8 Creatinine Kinase MB (Mass) 0.25 Troponin I < 0.012 Medications Medications Current Medications Acetaminophen (Tylenol Tab) 650 mg Q6H PRN PO PAIN LEVEL 1-3 OR FEVER; Start 12/07/16 at 11:00 Acetaminophen/ Hydrocodone Bitart ([place] (5/325)) 1 tab Q6H PRN PO MODERATE PAIN LEVEL 4-6 Last administered on 12/07/16 13:38; Admin Dose 1 TAB; Start at 11:00 Docusate Sodium (Colace) 100 mg Q12H PRN PO CONSTIPATION Last administered on 12/11/16 14:42; Admin Dose 100 MG; Start 12/07/16 at 11:00 Magnesium Hydroxide (Milk Of Mag) 30 ml DAILY PRN PO CONSTIPATION; Start at 11:00 Bisacodyl (Dulcolax) 5 mg DAILY PRN PO CONSTIPATION Last administered on 14:43; Admin Dose 5 MG; Start 12/07/16 at 11:00 Enoxaparin Sodium (Lovenox) 30 mg DAILY@12 SC Last administered on 12/12/16 12 :48; Admin Dose 30 MG; Start 12/07/16 at 12:00; Status Future hold Aspirin (Aspirin) 81 mg DAILY PO Last administered on 12/12/16 08:14; Admin Dose 81 MG; Start 12/08/16 at 09:00 Furosemide (Lasix) 20 mg DAILY PO Last administered on 12/12/16 08:16; Admin Dose 20 MG; Start 12/08/16 at 09:00 Labetalol HCl (Normodyne) 100 mg BID PO Last administered on 12/12/16 08:15; Admin Dose 100 MG; Start 12/07/16 at 21:00; Status Future hold Nifedipine (Procardia Xl) 60 mg DAILY PO Last administered on 12/12/16 08:15; Admin Dose 60 MG; Start 12/08/16 at 09:00 Topiramate (Topamax Sprinkle) 25 mg BID PO Last administered on 12/12/16 08:15 ; Admin Dose 25 MG; Start 12/07/16 at 21:00 Tramadol HCl (Ultram) 50 mg Q6H PRN PO pain; Start 12/07/16 at 14:00 Morphine Sulfate (morphine) 2 mg Q4H PRN IV pain Last administered on 09:54; Admin Dose 2 MG; Start 12/07/16 at 16:30 Multivit/Ca Carb/ B Cmplx/FA/Prenat (Sommer-Samantha) 1 tab DAILY PO Last administered on 12/12/16 08:15; Admin Dose 1 TAB; Start 12/09/16 at 09:00 Folic Acid (Folic Acid) 1 mg DAILY PO Last administered on 12/12/16 08:16; Admin Dose 1 MG; Start 12/09/16 at 09:00 Epoetin Zacarias (Epogen (Esrd)) 4,000 units TuThSa@17 SC Last administered on 12/10 17:57; Admin Dose 4,000 UNITS; Start 12/10/16 at 17:00 Diphenhydramine HCl (Benadryl) 25 mg Q6H PRN IV for itching Last administered on 12/12/16 13:01; Admin Dose 25 MG; Start 12/10/16 at 12:00 Hydromorphone HCl (Dilaudid) 1 mg Q4H PRN IV PAIN Last administered on 15:59; Admin Dose 1 MG; Start 12/11/16 at 14:30 Clonidine (Catapres) 0.2 mg TID PO Last administered on 12/12/16 12:52; Admin Dose 0.2 MG; Start 12/11/16 at 21:00 MIKE VEGA MD Dec 12, 2016 23:18
[2016-12-13] MEDS: DIPHENHYDRAMINE 50 MG INJ IV PRN ×4 (00:05→18:12)
[2016-12-13 01:59] LABS: CK-MB 0.25 ng/ml (0.0-2.4)
[2016-12-13 02:05] LABS: TROPONIN-I 0.012 ng/ml (0.00-0.12)
[2016-12-13] MEDS: HYDROmorphONE 1 MG/ML SYG IV PRN ×8 (02:11→23:38)
[2016-12-13 02:40] VITALS: BP 120/63; RESP 20
[2016-12-13] MEDS: HYDROCODONE/APAP (5/325) TAB PO PRN (04:17)
[2016-12-13 06:13] LABS: BASOPHILS % 0.7 % (0.0-2.0); EOSINOPHILS # 0.4 10^3/ul (0.0-0.5); EOSINOPHILS % 7.6 % (0.0-7.0); HEMATOCRIT 24.2 % (37.0-47.0); HEMOGLOBIN 7.4 g/dl (12.0-16.0); LYMPHOCYTES # 1.2 10^3/ul (0.8-2.9); LYMPHOCYTES % 23.1 % (15.0-51.0); MEAN CORPUSCULAR HEMOGLOBIN 28.7 pg (29.0-33.0); MEAN CORPUSCULAR HGB CONC 30.6 g/dl (32.0-37.0); MEAN CORPUSCULAR VOLUME 93.8 fl (82.0-101.0); MEAN PLATELET VOLUME 11.3 fl (7.4-10.4); MONOCYTE # 0.6 10^3/ul (0.3-0.9); MONOCYTES % 11.4 % (0.0-11.0); NEUTROPHIL # 3.1 10^3/ul (1.6-7.5); NEUTROPHILS % 56.8 % (39.0-77.0); PLATELET COUNT 170 10^3/UL (140-415); RED BLOOD COUNT 2.58 10^6/ul (4.20-5.40); RED CELL DISTRIBUTION WIDTH 16.7 % (11.5-14.5); WHITE BLOOD COUNT 5.4 10^3/ul (4.8-10.8)
[2016-12-13 06:36] LABS: CHOL/HDL RATIO 5.4 RATIO
[2016-12-13 06:39] LABS: CALCIUM 8.4 mg/dl (8.4-10.2); CREATININE 9.48 mg/dl (0.44-1.00); POTASSIUM 5.4 mmol/L (3.5-5.1)
[2016-12-13 07:46] VITALS: BP 143/78; RESP 16
[2016-12-13] MEDS: LABETALOL 100 MG TAB PO SCH ×2 (08:22→20:39)
[2016-12-13] MEDS: MULTIVIT/CA CARB/B CMPLX/FA TAB PO SCH (08:22)
[2016-12-13] MEDS: FOLIC ACID 1 MG TAB PO SCH (08:22)
[2016-12-13] MEDS: ASPIRIN 81 MG TAB PO SCH (08:22)
[2016-12-13] MEDS: NIFEdipine (XL) 60 MG TAB PO SCH (08:22)
[2016-12-13] MEDS: TOPIRAMATE SPRINKLE 25 MG CAP PO SCH ×2 (08:23→20:44)
[2016-12-13] MEDS: GABAPENTIN 100 MG CAP PO SCH ×2 (08:23→20:38)
[2016-12-13] MEDS: FUROSEMIDE 20 MG TAB PO SCH (08:23)
[2016-12-13] MEDS: SEVELAMER 800 MG TAB PO SCH ×3 (08:23→17:34)
[2016-12-13] MEDS: morphine (ER) 15 MG TAB PO SCH ×3 (08:23→22:56)
--- NOTE | 2016-12-13 08:57 | CONS ---
Date/Time of Note Date/Time of Note DATE: 12/13/16 TIME: 08:42 Assessment/Plan Assessment/Plan Additional Assessment/Plan End-stage renal disease on hemodialysis By history and review of medical records left pain presumed to be secondary to infectious process. Status post vascular surgery lower extremities Acute pain syndrome MS Contin 15 mg p.o. twice daily Changed to Dilaudid 1 mg every 4 as needed Gabapentin 200 mg twice daily adjusted for renal clearance Consultation Date/Type/Reason Admit Date/Time Dec 07, 2016 at 10:40 Type of Consultation: Pain management Hx of Present Illness This is a 31-year-old female who has a history of end-stage renal disease on hemodialysis who states that approximately 4 days prior to this admission she started developing increasing right lower extremity and abdominal discomfort. Patient states pain is increased in severity she describes as a constant pain with some peaks and troughs associated with, she describes it as severe grade 9/ 10. With current pain control medication states that her pain is not alleviated both there is no decrease in the severity and also whenever she gets only short lasting. However patient appears to be very comfortable at this time and was sleeping when I entered the room and does not appear to be any major distress. We will give her the benefit of treatment as patient may have been medicated prior to my arrival. States that only 10% of her pain at most is alleviated by her current pain medication states that it interferes with her physical functioning mood sleeping patterns overall functioning since patient began in throughout this current hospitalization. Mental cloudiness sweating fatigue drowsiness there is no past medical history of purposeful oversedation suicide ideations she does not appear to be overmedicated, she is not unkempt nor she asked for frequent early renewals of her medications. Or further she is not asked for escalating doses. I do not get the impression that she is using pain control medication for stressors and she is not insisting on certain medications for that she denies alcohol smoking or illicit drug use. She was only taking [place] for pain control prior to hospitalization without relief of the pain as noted above. Constitutional: other (s/p venogram), No chills, No diaphoresis, No disoriented, No febrile, No improved, No no complaints, No poor po, No requiring IVF, No requiring O2 Eyes: No discharge, No no complaints, No other, No pain, No redness, No visual change Respiratory: No cough, No no complaints, No other, No pain, No pleuritic pain, No shortness of breath, No sputum, No wheezing Cardiovascular: No chest pain, No edema, No lightheadedness, No no complaints, No orthopenea, No other, No palpitations, No paroxysmal nocturnal dyspnea Gastrointestinal: No blood, No constipation, No decreased appetite, No diarrhea , No flatus, No nausea, No no complaints, No other, No pain, No passing stool, No vomiting Musculoskeletal: No back pain, No bone/joint pain, No neck pain, No no complaints, No other, No restricted range of motion, No swelling Neurologic: No confusion, No dizziness, No focal-weakness, No headache, No no complaints, No other, No seizure, No syncope Psychological: nl mood/affect Social History Smoking Status: Former smoker Exam/Review of Systems Vital Signs Vitals Vital Signs Date Time Temp Pulse Resp B/P Pulse Ox O2 Delivery O2 Flow Rate FiO2 12/13/16 02:40 98.4 77 20 120/63 97 12/09/16 21:30 Room Air Intake and Output 12/12/16 12/12/16 12/13/16 15:00 23:00 07:00 Intake Total 400 ml 460 ml 360 ml Output Total 2400 ml Balance -2000 ml 460 ml 360 ml Exam Constitutional: No alert, No distress, No frail, No non-verbal, No obese, No oriented, No other, No well developed Psych: No anxiety, No confusion, No depression, No nl mood/affect, No no complaints, No other, No suicidal Neck: No bruits, No jvd, No masses, No non-tender, No nuchal rigidity, No other , No supple, No thyromegaly Respiratory: No clear to auscultation, No congested cough, No crackles/rales, No diminished breath sounds, No intercostal retraction, No labored breathing, No normal air movement, No other, No respirations, No tactile fremitus, No wheezing Cardiovascular: No S3, No S4, No bruits, No diastolic murmur, No edema, No gallop, No irregular rhythm, No jugular venous distention (JVD), No murmurs/ extra sounds, No nl pulses, No other, No regular rate and rhythm, No rub, No systolic murmur Gastrointestinal: No ascites, No bowel sounds, No distended, No firm, No hepatomegaly, No mass, No nl liver, spleen, No non-tender, No other, No rebound or guarding, No soft, No splenomegaly, No surgical scars, No tender Neurological: No CALCULATING MACHINE MECHANIC II-XII intact, No DTR's symmetric, No confused, No focal weakness, No lethargic, No nl mental status, No nl speech, No nl strength, No numbness, No other, No reflexes, No unresponsive Results Result Diagram: 12/13/16 0541 12/13/16 0541 Results 24 hrs Laboratory Tests Test 12/12/16 20:00 12/13/16 01:08 12/13/16 05:41 Creatine Kinase 33 37 Creatine Kinase Index 0.8 0.7 Creatinine Kinase MB (Mass) 0.25 0.25 Troponin I < 0.012 0.012 White Blood Count 5.4 Red Blood Count 2.58 L Hemoglobin 7.4 L Hematocrit 24.2 L Mean Corpuscular Volume 93.8 Mean Corpuscular Hemoglobin 28.7 L Mean Corpuscular Hemoglobin Concent 30.6 L Red Cell Distribution Width 16.7 H Platelet Count 170 Mean Platelet Volume 11.3 H Neutrophils % 56.8 Lymphocytes % 23.1 Monocytes % 11.4 H Eosinophils % 7.6 H Basophils % 0.7 Nucleated Red Blood Cells % 0.0 Neutrophils # 3.1 Lymphocytes # 1.2 Monocytes # 0.6 Eosinophils # 0.4 Basophils # 0.0 Nucleated Red Blood Cells # 0.0 Sodium Level 139 Potassium Level 5.4 H Chloride Level 104 Carbon Dioxide Level 26 Anion Gap 14 Blood Urea Nitrogen 64 H Creatinine 9.48 H Glucose Level 90 Calcium Level 8.4 Triglycerides Level 182 H Cholesterol Level 120 LDL Cholesterol, Calculated 62 HDL Cholesterol 22 L Cholesterol/HDL Ratio 5.4 Medications Medications Current Medications Acetaminophen (Tylenol Tab) 650 mg Q6H PRN PO PAIN LEVEL 1-3 OR FEVER; Start 12/07/16 at 11:00 Acetaminophen/ Hydrocodone Bitart ([place] (5/325)) 1 tab Q6H PRN PO MODERATE PAIN LEVEL 4-6 Last administered on 12/13/16 04:17; Admin Dose 1 TAB; Start at 11:00 Docusate Sodium (Colace) 100 mg Q12H PRN PO CONSTIPATION Last administered on 12/11/16 14:42; Admin Dose 100 MG; Start 12/07/16 at 11:00 Magnesium Hydroxide (Milk Of Mag) 30 ml DAILY PRN PO CONSTIPATION; Start at 11:00 Bisacodyl (Dulcolax) 5 mg DAILY PRN PO CONSTIPATION Last administered on 14:43; Admin Dose 5 MG; Start 12/07/16 at 11:00 Enoxaparin Sodium (Lovenox) 30 mg DAILY@12 SC Last administered on 12/12/16 12 :48; Admin Dose 30 MG; Start 12/07/16 at 12:00; Status Future hold Aspirin (Aspirin) 81 mg DAILY PO Last administered on 12/12/16 08:14; Admin Dose 81 MG; Start 12/08/16 at 09:00 Furosemide (Lasix) 20 mg DAILY PO Last administered on 12/12/16 08:16; Admin Dose 20 MG; Start 12/08/16 at 09:00 Labetalol HCl (Normodyne) 100 mg BID PO Last administered on 12/12/16 21:00; Admin Dose 100 MG; Start 12/07/16 at 21:00; Status Future hold Nifedipine (Procardia Xl) 60 mg DAILY PO Last administered on 12/12/16 08:15; Admin Dose 60 MG; Start 12/08/16 at 09:00 Topiramate (Topamax Sprinkle) 25 mg BID PO Last administered on 12/12/16 21:00 ; Admin Dose 25 MG; Start 12/07/16 at 21:00 Tramadol HCl (Ultram) 50 mg Q6H PRN PO pain; Start 12/07/16 at 14:00 Morphine Sulfate (morphine) 2 mg Q4H PRN IV pain Last administered on 09:54; Admin Dose 2 MG; Start 12/07/16 at 16:30 Multivit/Ca Carb/ B Cmplx/FA/Prenat (Sommer-Samantha) 1 tab DAILY PO Last administered on 12/12/16 08:15; Admin Dose 1 TAB; Start 12/09/16 at 09:00 Folic Acid (Folic Acid) 1 mg DAILY PO Last administered on 12/12/16 08:16; Admin Dose 1 MG; Start 12/09/16 at 09:00 Epoetin Zacarias (Epogen (Esrd)) 4,000 units TuThSa@17 SC Last administered on 12/10 17:57; Admin Dose 4,000 UNITS; Start 12/10/16 at 17:00 Diphenhydramine HCl (Benadryl) 25 mg Q6H PRN IV for itching Last administered on 12/13/16 06:01; Admin Dose 25 MG; Start 12/10/16 at 12:00 Clonidine (Catapres) 0.2 mg TID PO Last administered on 12/12/16 21:00; Admin Dose 0.2 MG; Start 12/11/16 at 21:00 Hydromorphone HCl (Dilaudid) 1 mg Q3H PRN IV PAIN Last administered on 05:18; Admin Dose 1 MG; Start 12/12/16 at 23:45 NATHAN GIRARD Dec 13, 2016 08:52
--- NOTE | 2016-12-13 08:59 | CONS ---
Date/Time of Note Date/Time of Note DATE: 12/13/16 TIME: 08:55 Assessment/Plan Assessment/Plan Additional Assessment/Plan 1. Preoperative evaluation prior to creation of AV fistula - s/p catheter now - tolerated procedure well. 2. Chest pain, atypical at this time, normal ejection fraction on echo - r/o NV , doubt ischemia. 3. Hypertension, mildly elevated - BP in reasonable range now. 4. End-stage renal disease on hemodialysis - HD as needed. 5. History of migraine headaches - beter now. 6. History of multiple failed chest wall catheters likely cause the patient's intermittent chest pains. Consultation Date/Type/Reason Admit Date/Time Dec 07, 2016 at 10:40 Initial Consult Date 24 HR Interval Summary Free Text/Dictation NO acute events - now with catheter - HD to follo was needed. ROS: No fever, no chills, no nausea, no vomiting, no diarrhea/constipation No recent weight changes No chest pain, no PND, no orthopnea No dizziness, blurred vision No thirst, no heat or cold intolerance Exam/Review of Systems Vital Signs Vitals Vital Signs Date Time Temp Pulse Resp B/P Pulse Ox O2 Delivery O2 Flow Rate FiO2 12/13/16 07:46 98.5 79 16 143/78 98 12/09/16 21:30 Room Air Intake and Output 12/12/16 12/12/16 12/13/16 15:00 23:00 07:00 Intake Total 400 ml 460 ml 360 ml Output Total 2400 ml Balance -2000 ml 460 ml 360 ml Exam General: WN/WD/NAD, AOx 3 HEENT: Unicetric/atraumatic/EOMI (follows commands) NECK: JVD elevated, no thyromegaly Lymph: no lymphadenopathy HEART: regular with no S3, II/ systolic murmur at apex LUNGS: Coarse sounds ABD: soft, NT, ND, +BS : Intact Neuro: non focal SKIN: chronic changes EXT: trace edema Results Result Diagram: 12/13/16 0541 12/13/16 0541 Results 24 hrs Laboratory Tests Test 12/12/16 20:00 12/13/16 01:08 12/13/16 05:41 Creatine Kinase 33 37 Creatine Kinase Index 0.8 0.7 Creatinine Kinase MB (Mass) 0.25 0.25 Troponin I < 0.012 0.012 White Blood Count 5.4 Red Blood Count 2.58 L Hemoglobin 7.4 L Hematocrit 24.2 L Mean Corpuscular Volume 93.8 Mean Corpuscular Hemoglobin 28.7 L Mean Corpuscular Hemoglobin Concent 30.6 L Red Cell Distribution Width 16.7 H Platelet Count 170 Mean Platelet Volume 11.3 H Neutrophils % 56.8 Lymphocytes % 23.1 Monocytes % 11.4 H Eosinophils % 7.6 H Basophils % 0.7 Nucleated Red Blood Cells % 0.0 Neutrophils # 3.1 Lymphocytes # 1.2 Monocytes # 0.6 Eosinophils # 0.4 Basophils # 0.0 Nucleated Red Blood Cells # 0.0 Sodium Level 139 Potassium Level 5.4 H Chloride Level 104 Carbon Dioxide Level 26 Anion Gap 14 Blood Urea Nitrogen 64 H Creatinine 9.48 H Glucose Level 90 Calcium Level 8.4 Triglycerides Level 182 H Cholesterol Level 120 LDL Cholesterol, Calculated 62 HDL Cholesterol 22 L Cholesterol/HDL Ratio 5.4 Medications Medications Current Medications Acetaminophen (Tylenol Tab) 650 mg Q6H PRN PO PAIN LEVEL 1-3 OR FEVER; Start 12/07/16 at 11:00 Docusate Sodium (Colace) 100 mg Q12H PRN PO CONSTIPATION Last administered on 12/11/16 14:42; Admin Dose 100 MG; Start 12/07/16 at 11:00 Magnesium Hydroxide (Milk Of Mag) 30 ml DAILY PRN PO CONSTIPATION; Start at 11:00 Bisacodyl (Dulcolax) 5 mg DAILY PRN PO CONSTIPATION Last administered on 14:43; Admin Dose 5 MG; Start 12/07/16 at 11:00 Enoxaparin Sodium (Lovenox) 30 mg DAILY@12 SC Last administered on 12/12/16 12 :48; Admin Dose 30 MG; Start 12/07/16 at 12:00; Status Future hold Aspirin (Aspirin) 81 mg DAILY PO Last administered on 12/13/16 08:22; Admin Dose 81 MG; Start 12/08/16 at 09:00 Furosemide (Lasix) 20 mg DAILY PO Last administered on 12/13/16 08:23; Admin Dose 20 MG; Start 12/08/16 at 09:00 Labetalol HCl (Normodyne) 100 mg BID PO Last administered on 12/13/16 08:22; Admin Dose 100 MG; Start 12/07/16 at 21:00; Status Future hold Nifedipine (Procardia Xl) 60 mg DAILY PO Last administered on 12/13/16 08:22; Admin Dose 60 MG; Start 12/08/16 at 09:00 Topiramate (Topamax Sprinkle) 25 mg BID PO Last administered on 12/13/16 08:23 ; Admin Dose 25 MG; Start 12/07/16 at 21:00 Multivit/Ca Carb/ B Cmplx/FA/Prenat (Sommer-Samantha) 1 tab DAILY PO Last administered on 12/13/16 08:22; Admin Dose 1 TAB; Start 12/09/16 at 09:00 Folic Acid (Folic Acid) 1 mg DAILY PO Last administered on 12/13/16 08:22; Admin Dose 1 MG; Start 12/09/16 at 09:00 Epoetin Zacarias (Epogen (Esrd)) 4,000 units TuThSa@17 SC Last administered on 12/10 17:57; Admin Dose 4,000 UNITS; Start 12/10/16 at 17:00 Diphenhydramine HCl (Benadryl) 25 mg Q6H PRN IV for itching Last administered on 12/13/16 06:01; Admin Dose 25 MG; Start 12/10/16 at 12:00 Clonidine (Catapres) 0.2 mg TID PO Last administered on 12/13/16 08:23; Admin Dose 0.2 MG; Start 12/11/16 at 21:00 Hydromorphone HCl (Dilaudid) 1 mg Q3H PRN IV PAIN Last administered on 08:22; Admin Dose 1 MG; Start 12/12/16 at 23:45 Morphine Sulfate (Ms Contin (Er)) 15 mg BID PO Last administered on 12/13/16 08:23; Admin Dose 15 MG; Start 12/13/16 at 09:00 Gabapentin (Neurontin) 200 mg BID PO Last administered on 12/13/16 08:23; Admin Dose 200 MG; Start 12/13/16 at 09:00 CARINA RITTER MD Dec 13, 2016 08:59
[2016-12-13] MEDS: ENOXAPARIN 30 MG/0.3 ML SYG SC SCH (12:00)
--- NOTE | 2016-12-13 12:16 | PN ---
DATE: 12/13/2016 SUBJECTIVE: No events overnight. The patient is alert, sitting comfortably in bed, eating apple, c omplaining of pain, no fevers. WBC 5.4, no shift, no bands. INDWELLINGS: She has femoral Aris. MICROBIOLOGY: Blood cultures and tip culture growing oxacillin-sensitive Staphylococcus aureus. ANTIMICROBIALS: The patient is on Ancef. PHYSICAL EXAMINATION: GENERAL: This is a well-developed, obese, middle-aged -[place] woman who is awake, in no di stress. HEENT: Head atraumatic, normocephalic. Sclerae anicteric. Buccal mucosa dry. NECK: Supple. CHEST: Rise is symmetrical. Breath sounds diminished to bases. HEART: S1, S2. ABDOMEN: Soft. Bowel tones present. EXTREMITIES: Without cyanosis. ASSESSMENT: 1. Line sepsis with oxacillin sensitive Staphylococcus aureus bacteremia. 2. End-stage renal disease. 3. Hypertension. 4. History of noncompliance and possible substance use. PLAN: The patient remains stable. We will continue her on current antibiotics. If the new line wa s placed over the guidewire, then it should come out and new temporary line should be placed. The p atient is to complicate 4 to 6 weeks of IV antibiotics. Dictated By: BILL HOFFMAN CARDIOPULMONARY TECHNICIAN for [facility] BARRIOS/NTS Conf#: [id number] DID#: [id number] CC: LORNEA TIRADO;*EndCC*
[2016-12-13 12:30] VITALS: BP 159/81; PULSE 78
--- NOTE | 2016-12-13 13:43 | PN ---
Date/Time of Note Date/Time of Note DATE: 12/13/16 TIME: 13:38 Assessment/Plan Lines/Catheters IV [facility]from [facility]): KAILA CATH Assessment/Plan Chief Complaint/Hosp Course -Endstage renal disease and central stenosis: It seems the patient has had a longstanding history of multiple chest wall catheters and fistula creations in which have all failed. There is a strong suggestion that patient has central occlusion/stenosis in which she would need to be further evaluated for possible creation of new advanced fistula. -S/P Left groin catheter exchange to a Kaila catheter -S/P bilateral UE venograms -Will schedule for bilateral lower extremity duplex to evaluate her swelling and mild tenderness -Continue antibiotics -Optimize vascular status (BP meds, diet, nutrition, exercise, sugar control, anti-platelets). -Discussed findings, plan and management with the patient and she understands. -Thank you for allowing us to partake in the care of your patient. Please call with any questions. Problems: Subjective 24 Hr Interval Summary pt having some LLE swelling Exam/Review of Systems Vital Signs Vitals Vital Signs Date Time Temp Pulse Resp B/P Pulse Ox O2 Delivery O2 Flow Rate FiO2 12/13/16 12:30 78 159/81 12/13/16 07:46 98.5 16 98 12/09/16 21:30 Room Air Intake and Output 12/12/16 12/12/16 12/13/16 15:00 23:00 07:00 Intake Total 400 ml 460 ml 360 ml Output Total 2400 ml Balance -2000 ml 460 ml 360 ml Exam Free Text/Dictation GENERAL: Alert and oriented x3, PULMONARY: Clear to auscultation bilaterally. CARDIOVASCULAR: S1, S2 present. ABDOMEN: Soft, nontender, nondistended. Bowel sounds positive. Truncal obesity. EXTREMITIES: Right lower extremity palpable femoral pulse, faint pedal pulse. Motor, sensory intact. Cap refill 2 to 3 seconds. Left lower extremity groin catheter intact, mildly tender upon palpation, erythema resolving, no purulence identified. Palpable femoral pulse, faint pedal pulse. Motor, sensory intact. edema 2-3+ Results Result Diagram: 12/13/16 0541 12/13/16 0541 JULISSA NI MD Dec 13, 2016 13:42
--- NOTE | 2016-12-13 14:51 | PN ---
Date/Time of Note Date/Time of Note DATE: 12/13/16 TIME: 14:47 Assessment/Plan VTE Prophylaxis VTE Prophylaxis Intervention: heparin Lines/Catheters IV Catheter Type (from [facility]): KAILA CATH Assessment/Plan Chief Complaint/Hosp Course Assessment and plan 1. Bacteremia with MSSA. ID consult was consulted. Continue antibiotics. Left groin dialysis catheter was already replaced per vascular surgeon. . 2. End-stage renal disease. Continue on dialysis per nephrology recommendations. Tentative plan for AV fistula 3. Hypertension. Continue antihypertensives and adjust as needed 4. History of migraines. Continue with analgesics as needed. 5. left leg pain. plan for doppler of left lower extremity. Disposition plan: follow up on LLE imaging. continue with abx and analgesics. f/ u surgeon recs Discussed with Dr. umanzor Problems: Subjective 24 Hr Interval Summary Free Text/Dictation still reports having some left leg pain Exam/Review of Systems Vital Signs Vitals Vital Signs Date Time Temp Pulse Resp B/P Pulse Ox O2 Delivery O2 Flow Rate FiO2 12/13/16 12:30 78 159/81 12/13/16 07:46 98.5 16 98 12/09/16 21:30 Room Air Intake and Output 12/12/16 12/12/16 12/13/16 15:00 23:00 07:00 Intake Total 400 ml 460 ml 360 ml Output Total 2400 ml Balance -2000 ml 460 ml 360 ml Exam Constitutional: alert, oriented Psych: nl mood/affect Head: normocephalic Respiratory: clear to auscultation, normal air movement Cardiovascular: regular rate and rhythm Gastrointestinal: non-tender, soft Musculoskeletal: swelling (swelling left lower extremity) pain on palpation Neurological: VENETIAN BLIND CLEANER AND REPAIRER II-XII intact, nl mental status, nl speech Skin: other (dialysis catheter left groin ) Results Result Diagram: 12/13/16 0541 12/13/16 0541 Results 24 hrs Laboratory Tests Test 12/12/16 20:00 12/13/16 01:08 12/13/16 05:41 Creatine Kinase 33 37 Creatine Kinase Index 0.8 0.7 Creatinine Kinase MB (Mass) 0.25 0.25 Troponin I < 0.012 0.012 White Blood Count 5.4 Red Blood Count 2.58 L Hemoglobin 7.4 L Hematocrit 24.2 L Mean Corpuscular Volume 93.8 Mean Corpuscular Hemoglobin 28.7 L Mean Corpuscular Hemoglobin Concent 30.6 L Red Cell Distribution Width 16.7 H Platelet Count 170 Mean Platelet Volume 11.3 H Neutrophils % 56.8 Lymphocytes % 23.1 Monocytes % 11.4 H Eosinophils % 7.6 H Basophils % 0.7 Nucleated Red Blood Cells % 0.0 Neutrophils # 3.1 Lymphocytes # 1.2 Monocytes # 0.6 Eosinophils # 0.4 Basophils # 0.0 Nucleated Red Blood Cells # 0.0 Sodium Level 139 Potassium Level 5.4 H Chloride Level 104 Carbon Dioxide Level 26 Anion Gap 14 Blood Urea Nitrogen 64 H Creatinine 9.48 H Glucose Level 90 Calcium Level 8.4 Triglycerides Level 182 H Cholesterol Level 120 LDL Cholesterol, Calculated 62 HDL Cholesterol 22 L Cholesterol/HDL Ratio 5.4 Medications Medications Current Medications Acetaminophen (Tylenol Tab) 650 mg Q6H PRN PO PAIN LEVEL 1-3 OR FEVER; Start 12/07/16 at 11:00 Docusate Sodium (Colace) 100 mg Q12H PRN PO CONSTIPATION Last administered on 12/11/16 14:42; Admin Dose 100 MG; Start 12/07/16 at 11:00 Magnesium Hydroxide (Milk Of Mag) 30 ml DAILY PRN PO CONSTIPATION; Start at 11:00 Bisacodyl (Dulcolax) 5 mg DAILY PRN PO CONSTIPATION Last administered on 14:43; Admin Dose 5 MG; Start 12/07/16 at 11:00 Aspirin (Aspirin) 81 mg DAILY PO Last administered on 12/13/16 08:22; Admin Dose 81 MG; Start 12/08/16 at 09:00 Furosemide (Lasix) 20 mg DAILY PO Last administered on 12/13/16 08:23; Admin Dose 20 MG; Start 12/08/16 at 09:00 Labetalol HCl (Normodyne) 100 mg BID PO Last administered on 12/13/16 08:22; Admin Dose 100 MG; Start 12/07/16 at 21:00; Status Future hold Nifedipine (Procardia Xl) 60 mg DAILY PO Last administered on 12/13/16 08:22; Admin Dose 60 MG; Start 12/08/16 at 09:00 Topiramate (Topamax Sprinkle) 25 mg BID PO Last administered on 12/13/16 08:23 ; Admin Dose 25 MG; Start 12/07/16 at 21:00 Multivit/Ca Carb/ B Cmplx/FA/Prenat (Sommer-Samantha) 1 tab DAILY PO Last administered on 12/13/16 08:22; Admin Dose 1 TAB; Start 12/09/16 at 09:00 Folic Acid (Folic Acid) 1 mg DAILY PO Last administered on 12/13/16 08:22; Admin Dose 1 MG; Start 12/09/16 at 09:00 Epoetin Zacarias (Epogen (Esrd)) 4,000 units TuThSa@17 SC Last administered on 12/10 17:57; Admin Dose 4,000 UNITS; Start 12/10/16 at 17:00 Diphenhydramine HCl (Benadryl) 25 mg Q6H PRN IV for itching Last administered on 12/13/16 12:15; Admin Dose 25 MG; Start 12/10/16 at 12:00 Clonidine (Catapres) 0.2 mg TID PO Last administered on 12/13/16 12:20; Admin Dose 0.2 MG; Start 12/11/16 at 21:00 Hydromorphone HCl (Dilaudid) 1 mg Q3H PRN IV PAIN Last administered on 14:27; Admin Dose 1 MG; Start 12/12/16 at 23:45 Morphine Sulfate (Ms Contin (Er)) 15 mg BID PO Last administered on 12/13/16 08:23; Admin Dose 15 MG; Start 12/13/16 at 09:00 Gabapentin (Neurontin) 200 mg BID PO Last administered on 12/13/16 08:23; Admin Dose 200 MG; Start 12/13/16 at 09:00 Heparin Sodium (Porcine) (Heparin (5000 Units/0.5 ml)) 5,000 unit BID SC ; Start 12/13/16 at 13:00 TACHO ORTEGA Dec 13, 2016 14:51
--- NOTE | 2016-12-13 15:21 | RADRPT ---
PROCEDURE: US Lower extremity venous, bilateral CLINICAL INDICATION: Lower extremity swelling TECHNIQUE: Multiple sonographic images of the bilateral lower extremity deep venous system was ob tained utilizing grayscale, color-flow, compressive sonography and doppler imaging with augmentation . The images were reviewed on a PACS workstation. COMPARISON: None. FINDINGS: There is normal compressibility and flow within the bilateral common femoral, superficial femoral , posterior tibial, peroneal and popliteal veins. RPTAT: AA IMPRESSION: No sonographic evidence for deep venous thrombosis in bilateral lower extremities. Physician Trina Date Time Electronically viewed and signed by Physician Trina on 12/13/2016 15:21 /
[2016-12-13 15:47] VITALS: BP 119/62; RESP 16
[2016-12-13] MEDS: HEPARIN 5,000 UNIT/0.5 ML VIAL SC SCH ×2 (16:21→23:12)
[2016-12-13] MEDS: EPOETIN 4000 UNITS/1 ML INJ (ESRD) SC SCH (17:33)
[2016-12-13] MEDS ORDERED: NA POLYST SULFON 15 GM/60 ML BTL PO ONE (18:30)
[2016-12-13 19:53] VITALS: BP 180/84; RESP 18
--- NOTE | 2016-12-13 22:16 | CONS ---
Date/Time of Note Date/Time of Note DATE: 12/13/16 TIME: 22:14 Assessment/Plan Assessment/Plan Chief Complaint/Hosp Course IMPRESSION: 1. The patient has left groin wound 2. Leukocytosis.better 3. End-stage renal disease. 4. Hypertension. 5. cath related inf 6. Anemia. 7. History of [place] palsy. 8 LOWER EX EDEMA 9 s/p venogram w central vein stenosis 10 hyperkalemia PLAN ANTIBIOTIC per vascular surgery HD mwf kayexalate Problems: Consultation Date/Type/Reason Admit Date/Time Dec 07, 2016 at 10:40 Initial Consult Date RENAL Type of Consultation: s/p venogram 24 HR Interval Summary Constitutional: no complaints Exam/Review of Systems Vital Signs Vitals Vital Signs Date Time Temp Pulse Resp B/P Pulse Ox O2 Delivery O2 Flow Rate FiO2 12/13/16 19:53 98.4 69 18 180/84 99 12/09/16 21:30 Room Air Intake and Output 12/12/16 12/12/16 12/13/16 15:00 23:00 07:00 Intake Total 400 ml 460 ml 360 ml Output Total 2400 ml Balance -2000 ml 460 ml 360 ml Exam Respiratory: diminished breath sounds Cardiovascular: regular rate and rhythm Gastrointestinal: bowel sounds (+), soft Extremities: edema (+) Results Result Diagram: 12/13/16 0541 12/13/16 0541 Results 24 hrs Laboratory Tests Test 12/13/16 01:08 12/13/16 05:41 Creatine Kinase 37 Creatine Kinase Index 0.7 Creatinine Kinase MB (Mass) 0.25 Troponin I 0.012 White Blood Count 5.4 Red Blood Count 2.58 L Hemoglobin 7.4 L Hematocrit 24.2 L Mean Corpuscular Volume 93.8 Mean Corpuscular Hemoglobin 28.7 L Mean Corpuscular Hemoglobin Concent 30.6 L Red Cell Distribution Width 16.7 H Platelet Count 170 Mean Platelet Volume 11.3 H Neutrophils % 56.8 Lymphocytes % 23.1 Monocytes % 11.4 H Eosinophils % 7.6 H Basophils % 0.7 Nucleated Red Blood Cells % 0.0 Neutrophils # 3.1 Lymphocytes # 1.2 Monocytes # 0.6 Eosinophils # 0.4 Basophils # 0.0 Nucleated Red Blood Cells # 0.0 Sodium Level 139 Potassium Level 5.4 H Chloride Level 104 Carbon Dioxide Level 26 Anion Gap 14 Blood Urea Nitrogen 64 H Creatinine 9.48 H Glucose Level 90 Calcium Level 8.4 Triglycerides Level 182 H Cholesterol Level 120 LDL Cholesterol, Calculated 62 HDL Cholesterol 22 L Cholesterol/HDL Ratio 5.4 Medications Medications Current Medications Acetaminophen (Tylenol Tab) 650 mg Q6H PRN PO PAIN LEVEL 1-3 OR FEVER; Start 12/07/16 at 11:00 Docusate Sodium (Colace) 100 mg Q12H PRN PO CONSTIPATION Last administered on 12/11/16 14:42; Admin Dose 100 MG; Start 12/07/16 at 11:00 Magnesium Hydroxide (Milk Of Mag) 30 ml DAILY PRN PO CONSTIPATION; Start at 11:00 Bisacodyl (Dulcolax) 5 mg DAILY PRN PO CONSTIPATION Last administered on 14:43; Admin Dose 5 MG; Start 12/07/16 at 11:00 Aspirin (Aspirin) 81 mg DAILY PO Last administered on 12/13/16 08:22; Admin Dose 81 MG; Start 12/08/16 at 09:00 Furosemide (Lasix) 20 mg DAILY PO Last administered on 12/13/16 08:23; Admin Dose 20 MG; Start 12/08/16 at 09:00 Nifedipine (Procardia Xl) 60 mg DAILY PO Last administered on 12/13/16 08:22; Admin Dose 60 MG; Start 12/08/16 at 09:00 Topiramate (Topamax Sprinkle) 25 mg BID PO Last administered on 12/13/16 08:23 ; Admin Dose 25 MG; Start 12/07/16 at 21:00 Multivit/Ca Carb/ B Cmplx/FA/Prenat (Sommer-Samantha) 1 tab DAILY PO Last administered on 12/13/16 08:22; Admin Dose 1 TAB; Start 12/09/16 at 09:00 Folic Acid (Folic Acid) 1 mg DAILY PO Last administered on 12/13/16 08:22; Admin Dose 1 MG; Start 12/09/16 at 09:00 Epoetin Zacarias (Epogen (Esrd)) 4,000 units TuThSa@17 SC Last administered on 12/13 17:33; Admin Dose 4,000 UNITS; Start 12/10/16 at 17:00 Diphenhydramine HCl (Benadryl) 25 mg Q6H PRN IV for itching Last administered on 12/13/16 18:12; Admin Dose 25 MG; Start 12/10/16 at 12:00 Clonidine (Catapres) 0.2 mg TID PO Last administered on 12/13/16 20:39; Admin Dose 0.2 MG; Start 12/11/16 at 21:00 Hydromorphone HCl (Dilaudid) 1 mg Q3H PRN IV PAIN Last administered on 20:43; Admin Dose 1 MG; Start 12/12/16 at 23:45 Morphine Sulfate (Ms Contin (Er)) 15 mg BID PO Last administered on 12/13/16 08:23; Admin Dose 15 MG; Start 12/13/16 at 09:00 Gabapentin (Neurontin) 200 mg BID PO Last administered on 12/13/16 20:38; Admin Dose 200 MG; Start 12/13/16 at 09:00 Heparin Sodium (Porcine) (Heparin (5000 Units/0.5 ml)) 5,000 unit BID SC Last administered on 12/13/16 16:21; Admin Dose 5,000 UNIT; Start 12/13/16 at 13:00 Labetalol HCl (Normodyne) 100 mg TID PO ; Start 12/14/16 at 09:00; Status MIKE REYNOSO MD Dec 13, 2016 22:16
[2016-12-13] MEDS: BISACODYL (EC) 5 MG TAB PO PRN (22:56)
[2016-12-14] VITALS (15 sets, daily range): BP systolic 113–190; BP diastolic 71–118; PULSE 71–86; RESP 18
[2016-12-14] MEDS: DIPHENHYDRAMINE 50 MG INJ IV PRN ×3 (00:49→18:30)
[2016-12-14] MEDS: HYDROmorphONE 1 MG/ML SYG IV PRN ×7 (02:49→21:26)
[2016-12-14 06:03] LABS: BASOPHILS % 0.3 % (0.0-2.0); EOSINOPHILS # 0.4 10^3/ul (0.0-0.5); EOSINOPHILS % 7.5 % (0.0-7.0); HEMATOCRIT 24.2 % (37.0-47.0); HEMOGLOBIN 7.3 g/dl (12.0-16.0); LYMPHOCYTES # 1.5 10^3/ul (0.8-2.9); LYMPHOCYTES % 26.4 % (15.0-51.0); MEAN CORPUSCULAR HEMOGLOBIN 28.3 pg (29.0-33.0); MEAN CORPUSCULAR HGB CONC 30.2 g/dl (32.0-37.0); MEAN CORPUSCULAR VOLUME 93.8 fl (82.0-101.0); MEAN PLATELET VOLUME 11.3 fl (7.4-10.4); MONOCYTE # 0.6 10^3/ul (0.3-0.9); MONOCYTES % 10.3 % (0.0-11.0); NEUTROPHIL # 3.2 10^3/ul (1.6-7.5); NEUTROPHILS % 55.2 % (39.0-77.0); PLATELET COUNT 177 10^3/UL (140-415); RED BLOOD COUNT 2.58 10^6/ul (4.20-5.40); RED CELL DISTRIBUTION WIDTH 16.6 % (11.5-14.5); WHITE BLOOD COUNT 5.8 10^3/ul (4.8-10.8)
[2016-12-14 06:32] LABS: CALCIUM 8.2 mg/dl (8.4-10.2); CREATININE 11.21 mg/dl (0.44-1.00); POTASSIUM 4.7 mmol/L (3.5-5.1)
[2016-12-14] MEDS: NIFEdipine (XL) 60 MG TAB PO SCH (09:00)
[2016-12-14] MEDS: FUROSEMIDE 20 MG TAB PO SCH (09:00)
[2016-12-14] MEDS: LABETALOL 100 MG TAB PO SCH ×3 (09:00→21:05)
[2016-12-14] MEDS ORDERED: DIPHENHYDRAMINE 50 MG INJ IV ONE (09:30)
[2016-12-14] MEDS: MULTIVIT/CA CARB/B CMPLX/FA TAB PO SCH (09:31)
[2016-12-14] MEDS: FOLIC ACID 1 MG TAB PO SCH (09:32)
[2016-12-14] MEDS: morphine (ER) 15 MG TAB PO SCH ×2 (09:32→21:06)
[2016-12-14] MEDS: TOPIRAMATE SPRINKLE 25 MG CAP PO SCH ×2 (09:32→21:05)
[2016-12-14] MEDS: GABAPENTIN 100 MG CAP PO SCH ×2 (09:32→21:05)
[2016-12-14] MEDS: SEVELAMER 800 MG TAB PO SCH ×3 (09:32→18:30)
[2016-12-14] MEDS: ASPIRIN 81 MG TAB PO SCH (09:32)
[2016-12-14] MEDS: HEPARIN 5,000 UNIT/0.5 ML VIAL SC SCH ×2 (09:52→21:30)
--- NOTE | 2016-12-14 11:57 | PN ---
Date/Time of Note Date/Time of Note DATE: 12/14/16 TIME: 11:56 Assessment/Plan VTE Prophylaxis VTE Prophylaxis Intervention: SCD's Lines/Catheters IV Catheter Type (from Nrs): KAILA CATH Assessment/Plan Chief Complaint/Hosp Course Assessment and plan 1. Bacteremia with MSSA. ID consult was consulted. Continue antibiotics. Left groin dialysis catheter was already replaced per vascular surgeon. . 2. End-stage renal disease. Continue on dialysis per nephrology recommendations. Tentative plan for AV fistula 3. Hypertension. Continue antihypertensives and adjust as needed 4. History of migraines. Continue with analgesics as needed. 5. left leg pain.repeat doppler of LLE negative for DVT. cont abx and analgesics Disposition plan: f/u vascular surgeon recs. d/c when cleared by consultants Discussed with Dr. umanzor Problems: Subjective 24 Hr Interval Summary Free Text/Dictation no s/s of distress Exam/Review of Systems Vital Signs Vitals Vital Signs Date Time Temp Pulse Resp B/P Pulse Ox O2 Delivery O2 Flow Rate FiO2 12/14/16 07:56 98.5 71 18 148/81 100 Intake and Output 12/13/16 12/13/16 12/14/16 15:00 23:00 07:00 Intake Total 1200 ml 460 ml Balance 1200 ml 460 ml Exam Constitutional: alert, oriented Psych: nl mood/affect Head: normocephalic Respiratory: clear to auscultation, normal air movement Cardiovascular: regular rate and rhythm Gastrointestinal: non-tender, soft Musculoskeletal: swelling (swelling left lower extremity) pain on palpation Neurological: HAND TIRE TRIMMER II-XII intact, nl mental status, nl speech Skin: other (dialysis catheter left groin ) Results Result Diagram: 12/14/16 0541 12/14/16 0541 Results 24 hrs Laboratory Tests Test 12/14/16 05:41 White Blood Count 5.8 Red Blood Count 2.58 L Hemoglobin 7.3 L Hematocrit 24.2 L Mean Corpuscular Volume 93.8 Mean Corpuscular Hemoglobin 28.3 L Mean Corpuscular Hemoglobin Concent 30.2 L Red Cell Distribution Width 16.6 H Platelet Count 177 Mean Platelet Volume 11.3 H Neutrophils % 55.2 Lymphocytes % 26.4 Monocytes % 10.3 Eosinophils % 7.5 H Basophils % 0.3 Nucleated Red Blood Cells % 0.0 Neutrophils # 3.2 Lymphocytes # 1.5 Monocytes # 0.6 Eosinophils # 0.4 Basophils # 0.0 Nucleated Red Blood Cells # 0.0 Sodium Level 140 Potassium Level 4.7 Chloride Level 104 Carbon Dioxide Level 22 Anion Gap 19 H Blood Urea Nitrogen 74 H Creatinine 11.21 H Glucose Level 107 Calcium Level 8.2 L Medications Medications Current Medications Acetaminophen (Tylenol Tab) 650 mg Q6H PRN PO PAIN LEVEL 1-3 OR FEVER; Start 12/07/16 at 11:00 Docusate Sodium (Colace) 100 mg Q12H PRN PO CONSTIPATION Last administered on 12/11/16 14:42; Admin Dose 100 MG; Start 12/07/16 at 11:00 Magnesium Hydroxide (Milk Of Mag) 30 ml DAILY PRN PO CONSTIPATION; Start at 11:00 Bisacodyl (Dulcolax) 5 mg DAILY PRN PO CONSTIPATION Last administered on 22:56; Admin Dose 5 MG; Start 12/07/16 at 11:00 Aspirin (Aspirin) 81 mg DAILY PO Last administered on 12/14/16 09:32; Admin Dose 81 MG; Start 12/08/16 at 09:00 Furosemide (Lasix) 20 mg DAILY PO Last administered on 12/13/16 08:23; Admin Dose 20 MG; Start 12/08/16 at 09:00 Nifedipine (Procardia Xl) 60 mg DAILY PO Last administered on 12/13/16 08:22; Admin Dose 60 MG; Start 12/08/16 at 09:00 Topiramate (Topamax Sprinkle) 25 mg BID PO Last administered on 12/14/16 09:32 ; Admin Dose 25 MG; Start 12/07/16 at 21:00 Multivit/Ca Carb/ B Cmplx/FA/Prenat (Sommer-Samantha) 1 tab DAILY PO Last administered on 12/14/16 09:31; Admin Dose 1 TAB; Start 12/09/16 at 09:00 Folic Acid (Folic Acid) 1 mg DAILY PO Last administered on 12/14/16 09:32; Admin Dose 1 MG; Start 12/09/16 at 09:00 Epoetin Zacarias (Epogen (Esrd)) 4,000 units TuThSa@17 SC Last administered on 12/13 17:33; Admin Dose 4,000 UNITS; Start 12/10/16 at 17:00 Diphenhydramine HCl (Benadryl) 25 mg Q6H PRN IV for itching Last administered on 12/14/16 06:08; Admin Dose 25 MG; Start 12/10/16 at 12:00 Clonidine (Catapres) 0.2 mg TID PO Last administered on 12/13/16 20:39; Admin Dose 0.2 MG; Start 12/11/16 at 21:00 Hydromorphone HCl (Dilaudid) 1 mg Q3H PRN IV PAIN Last administered on 09:31; Admin Dose 1 MG; Start 12/12/16 at 23:45 Morphine Sulfate (Ms Contin (Er)) 15 mg BID PO Last administered on 12/14/16 09:32; Admin Dose 15 MG; Start 12/13/16 at 09:00 Gabapentin (Neurontin) 200 mg BID PO Last administered on 12/14/16 09:32; Admin Dose 200 MG; Start 12/13/16 at 09:00 Heparin Sodium (Porcine) (Heparin (5000 Units/0.5 ml)) 5,000 unit BID SC Last administered on 12/14/16 09:52; Admin Dose 5,000 UNIT; Start 12/13/16 at 13:00 Labetalol HCl (Normodyne) 100 mg TID PO ; Start 12/14/16 at 09:00 TACHO ORTEGA Dec 14, 2016 11:57
--- NOTE | 2016-12-14 12:40 | CONS ---
Date/Time of Note Date/Time of Note DATE: 12/14/16 TIME: 12:35 Assessment/Plan Assessment/Plan Chief Complaint/Hosp Course IMPRESSION: 1. Preoperative evaluation prior to creation of AV fistula.-negative trop cx3/ NL EF by echo. No sig valve abnl. OK to proceed to OR at moderate risk without further noninvasive evaluation 2. Chest pain, atypical at this time, normal ejection fraction on echo. 3. Hypertension-started on labetelol. 4. End-stage renal disease on hemodialysis. 5. History of migraine headaches. 6. History of multiple failed chest wall catheters likely cause the patient's intermittent chest pains.-Negative trop x3 7. Edema of ZU-tyguzbiznt-HD doppler neg for DVT Recc: -Continue current anti-hypertensives and f/u BP after receiving -HD for volume removal -Ongoing eval of assymetric LE edema -pnding AVF creation Problems: Consultation Date/Type/Reason Admit Date/Time Dec 07, 2016 at 10:40 Initial Consult Date 12/12/2016 Type of Consultation: cardiology Reason for Consultation Pre-op/chest pain Referring Provider: JULISSA NI MD Exam/Review of Systems Vital Signs Vitals Vital Signs Date Time Temp Pulse Resp B/P Pulse Ox O2 Delivery O2 Flow Rate FiO2 12/14/16 10:15 77 16 12/14/16 07:56 98.5 148/81 100 Intake and Output 12/13/16 12/13/16 12/14/16 15:00 23:00 07:00 Intake Total 1200 ml 460 ml Balance 1200 ml 460 ml Exam Review of Systems: CONSTITUTIONAL: No fevers, chills. PULMONARY: mild sob CARDIOVASCULAR: No chest pain/palpitations GASTROINTESTINAL: No nausea/vomiting. GENITOURINARY: No hematuria/dysuria. MUSCULOSKELETAL: No myagias/arthalgias. PSYCHIATRIC: The patient denies depression. NEUROLOGIC: No weakness Constitutional: alert, oriented Psych: no complaints Head: normocephalic ENMT: mucosa pink and moist Neck: jvd (9 cm water), supple Respiratory: diminished breath sounds (at bases/B) Cardiovascular: regular rate and rhythm Gastrointestinal: non-tender, soft Musculoskeletal: muscle tone (normal) Extremities: edema (none) Neurological: other (No focal deficits) Results Result Diagram: 12/14/16 0541 12/14/16 05 Results 24 hrs Laboratory Tests Test 12/14/16 05:41 White Blood Count 5.8 Red Blood Count 2.58 L Hemoglobin 7.3 L Hematocrit 24.2 L Mean Corpuscular Volume 93.8 Mean Corpuscular Hemoglobin 28.3 L Mean Corpuscular Hemoglobin Concent 30.2 L Red Cell Distribution Width 16.6 H Platelet Count 177 Mean Platelet Volume 11.3 H Neutrophils % 55.2 Lymphocytes % 26.4 Monocytes % 10.3 Eosinophils % 7.5 H Basophils % 0.3 Nucleated Red Blood Cells % 0.0 Neutrophils # 3.2 Lymphocytes # 1.5 Monocytes # 0.6 Eosinophils # 0.4 Basophils # 0.0 Nucleated Red Blood Cells # 0.0 Sodium Level 140 Potassium Level 4.7 Chloride Level 104 Carbon Dioxide Level 22 Anion Gap 19 H Blood Urea Nitrogen 74 H Creatinine 11.21 H Glucose Level 107 Calcium Level 8.2 L Medications Medications Current Medications Acetaminophen (Tylenol Tab) 650 mg Q6H PRN PO PAIN LEVEL 1-3 OR FEVER; Start 12/07/16 at 11:00 Docusate Sodium (Colace) 100 mg Q12H PRN PO CONSTIPATION Last administered on 12/11/16 14:42; Admin Dose 100 MG; Start 12/07/16 at 11:00 Magnesium Hydroxide (Milk Of Mag) 30 ml DAILY PRN PO CONSTIPATION; Start at 11:00 Bisacodyl (Dulcolax) 5 mg DAILY PRN PO CONSTIPATION Last administered on 22:56; Admin Dose 5 MG; Start 12/07/16 at 11:00 Aspirin (Aspirin) 81 mg DAILY PO Last administered on 12/14/16 09:32; Admin Dose 81 MG; Start 12/08/16 at 09:00 Furosemide (Lasix) 20 mg DAILY PO Last administered on 12/13/16 08:23; Admin Dose 20 MG; Start 12/08/16 at 09:00 Nifedipine (Procardia Xl) 60 mg DAILY PO Last administered on 12/13/16 08:22; Admin Dose 60 MG; Start 12/08/16 at 09:00 Topiramate (Topamax Sprinkle) 25 mg BID PO Last administered on 12/14/16 09:32 ; Admin Dose 25 MG; Start 12/07/16 at 21:00 Multivit/Ca Carb/ B Cmplx/FA/Prenat (Sommer-Samantha) 1 tab DAILY PO Last administered on 12/14/16 09:31; Admin Dose 1 TAB; Start 12/09/16 at 09:00 Folic Acid (Folic Acid) 1 mg DAILY PO Last administered on 12/14/16 09:32; Admin Dose 1 MG; Start 12/09/16 at 09:00 Epoetin Zacarias (Epogen (Esrd)) 4,000 units TuThSa@17 SC Last administered on 12/13 17:33; Admin Dose 4,000 UNITS; Start 12/10/16 at 17:00 Diphenhydramine HCl (Benadryl) 25 mg Q6H PRN IV for itching Last administered on 12/14/16 06:08; Admin Dose 25 MG; Start 12/10/16 at 12:00 Clonidine (Catapres) 0.2 mg TID PO Last administered on 12/13/16 20:39; Admin Dose 0.2 MG; Start 12/11/16 at 21:00 Hydromorphone HCl (Dilaudid) 1 mg Q3H PRN IV PAIN Last administered on 09:31; Admin Dose 1 MG; Start 12/12/16 at 23:45 Morphine Sulfate (Ms Contin (Er)) 15 mg BID PO Last administered on 12/14/16 09:32; Admin Dose 15 MG; Start 12/13/16 at 09:00 Gabapentin (Neurontin) 200 mg BID PO Last administered on 12/14/16 09:32; Admin Dose 200 MG; Start 12/13/16 at 09:00 Heparin Sodium (Porcine) (Heparin (5000 Units/0.5 ml)) 5,000 unit BID SC Last administered on 12/14/16 09:52; Admin Dose 5,000 UNIT; Start 12/13/16 at 13:00 Labetalol HCl (Normodyne) 100 mg TID PO ; Start 12/14/16 at 09:00 ETHAN MCKINLEY 8, 2017 12:40
--- NOTE | 2016-12-14 12:57 | CONS ---
Date/Time of Note Date/Time of Note DATE: 12/14/16 TIME: 12:55 Consult Date/Type/Reason Admit Date/Time Dec 07, 2016 at 10:40 Initial Consult Date Type of Consultation: ID Ordering Provider: JULISSA NI MD Objective Vital Signs Date Time Temp Pulse Resp B/P Pulse Ox O2 Delivery O2 Flow Rate FiO2 12/14/16 10:15 77 16 12/14/16 07:56 98.5 148/81 100 Intake and Output 12/13/16 12/13/16 12/14/16 15:00 23:00 07:00 Intake Total 1200 ml 460 ml Balance 1200 ml 460 ml Results/Medications Result Diagram: 12/14/16 0541 12/14/16 0541 Results 24 hrs Laboratory Tests Test 12/14/16 05:41 White Blood Count 5.8 Red Blood Count 2.58 L Hemoglobin 7.3 L Hematocrit 24.2 L Mean Corpuscular Volume 93.8 Mean Corpuscular Hemoglobin 28.3 L Mean Corpuscular Hemoglobin Concent 30.2 L Red Cell Distribution Width 16.6 H Platelet Count 177 Mean Platelet Volume 11.3 H Neutrophils % 55.2 Lymphocytes % 26.4 Monocytes % 10.3 Eosinophils % 7.5 H Basophils % 0.3 Nucleated Red Blood Cells % 0.0 Neutrophils # 3.2 Lymphocytes # 1.5 Monocytes # 0.6 Eosinophils # 0.4 Basophils # 0.0 Nucleated Red Blood Cells # 0.0 Sodium Level 140 Potassium Level 4.7 Chloride Level 104 Carbon Dioxide Level 22 Anion Gap 19 H Blood Urea Nitrogen 74 H Creatinine 11.21 H Glucose Level 107 Calcium Level 8.2 L Medications Current Medications Acetaminophen (Tylenol Tab) 650 mg Q6H PRN PO PAIN LEVEL 1-3 OR FEVER; Start 12/07/16 at 11:00 Docusate Sodium (Colace) 100 mg Q12H PRN PO CONSTIPATION Last administered on 12/11/16 14:42; Admin Dose 100 MG; Start 12/07/16 at 11:00 Magnesium Hydroxide (Milk Of Mag) 30 ml DAILY PRN PO CONSTIPATION; Start at 11:00 Bisacodyl (Dulcolax) 5 mg DAILY PRN PO CONSTIPATION Last administered on 22:56; Admin Dose 5 MG; Start 12/07/16 at 11:00 Aspirin (Aspirin) 81 mg DAILY PO Last administered on 12/14/16 09:32; Admin Dose 81 MG; Start 12/08/16 at 09:00 Furosemide (Lasix) 20 mg DAILY PO Last administered on 12/13/16 08:23; Admin Dose 20 MG; Start 12/08/16 at 09:00 Nifedipine (Procardia Xl) 60 mg DAILY PO Last administered on 12/13/16 08:22; Admin Dose 60 MG; Start 12/08/16 at 09:00 Topiramate (Topamax Sprinkle) 25 mg BID PO Last administered on 12/14/16 09:32 ; Admin Dose 25 MG; Start 12/07/16 at 21:00 Multivit/Ca Carb/ B Cmplx/FA/Prenat (Sommer-Samantha) 1 tab DAILY PO Last administered on 12/14/16 09:31; Admin Dose 1 TAB; Start 12/09/16 at 09:00 Folic Acid (Folic Acid) 1 mg DAILY PO Last administered on 12/14/16 09:32; Admin Dose 1 MG; Start 12/09/16 at 09:00 Epoetin Zacarias (Epogen (Esrd)) 4,000 units TuThSa@17 SC Last administered on 12/13 17:33; Admin Dose 4,000 UNITS; Start 12/10/16 at 17:00 Diphenhydramine HCl (Benadryl) 25 mg Q6H PRN IV for itching Last administered on 12/14/16 06:08; Admin Dose 25 MG; Start 12/10/16 at 12:00 Clonidine (Catapres) 0.2 mg TID PO Last administered on 12/13/16 20:39; Admin Dose 0.2 MG; Start 12/11/16 at 21:00 Hydromorphone HCl (Dilaudid) 1 mg Q3H PRN IV PAIN Last administered on 12:34; Admin Dose 1 MG; Start 12/12/16 at 23:45 Morphine Sulfate (Ms Contin (Er)) 15 mg BID PO Last administered on 12/14/16 09:32; Admin Dose 15 MG; Start 12/13/16 at 09:00 Gabapentin (Neurontin) 200 mg BID PO Last administered on 12/14/16 09:32; Admin Dose 200 MG; Start 12/13/16 at 09:00 Heparin Sodium (Porcine) (Heparin (5000 Units/0.5 ml)) 5,000 unit BID SC Last administered on 12/14/16 09:52; Admin Dose 5,000 UNIT; Start 12/13/16 at 13:00 Labetalol HCl (Normodyne) 100 mg TID PO ; Start 12/14/16 at 09:00 Assessment/Plan Chief Complaint/Hosp Course SUBJECTIVE: No events overnight. The patient is alert, looks comfortable, no fevers. INDWELLINGS: R femoral Aris. MICROBIOLOGY: Blood cultures and tip culture growing oxacillin-sensitive Staphylococcus aureus. ANTIMICROBIALS: Ancef. PHYSICAL EXAMINATION: GENERAL: This is a well-developed, obese, middle-aged -[place] woman who is awake, in no distress. HEENT: Head atraumatic, normocephalic. Sclerae anicteric. Buccal mucosa dry. NECK: Supple. CHEST: Rise is symmetrical. Breath sounds diminished to bases. HEART: S1, S2. ABDOMEN: Soft. Bowel tones present. EXTREMITIES: Without cyanosis. ASSESSMENT: 1. Line sepsis with oxacillin sensitive Staphylococcus aureus bacteremia. 2. End-stage renal disease. 3. Hypertension. 4. History of noncompliance and possible substance use. PLAN: The patient remains stable. We will continue her on current antibiotics. If the new line was placed over the guidewire, then we recommend to pull it out with new temporary line placement if possible. The patient is to complicate 4 to 6 weeks of IV antibiotics. DW staff Problems: BILL HOFFMAN NP Dec 14, 2016 12:57
[2016-12-14] MEDS: CEFAZOLIN 2 GM/50 ML (PMX) 50 ML IVPB SCH (15:25)
--- NOTE | 2016-12-14 15:41 | RADRPT ---
Vent Rate: 70 bpm RR Interval: 0 msec WA Interval: 200 msec QRS Duration: 92 msec QT Interval: 438 msec QTC Interval: 473 msec P-R-T [place]: 58 - 14 - 79 degrees Normal sinus rhythm Nonspecific T wave abnormality Prolonged QT Abnormal ECG Electronically Signed By: Abdulkadir Magdaleno [id number]
--- NOTE | 2016-12-14 18:30 | CONS ---
Date/Time of Note Date/Time of Note DATE: 12/14/16 TIME: 18:28 Assessment/Plan Assessment/Plan Chief Complaint/Hosp Course IMPRESSION: 1. The patient has left groin wound 2. left lower ex edema 3. End-stage renal disease. 4. Hypertension. 5. cath related inf 6. Anemia. 7. History of [place] palsy. 8 damien sepsis 9 s/p venogram w central vein stenosis upper ex 10 hyperkalemia hx PLAN ANTIBIOTIC per vascular surgery HD mwf kayexalate prn angio lower ex Problems: Consultation Date/Type/Reason Admit Date/Time Dec 07, 2016 at 10:40 Initial Consult Date RENAL Referring Provider: JULISSA NI MD 24 HR Interval Summary Constitutional: other (left leg edema+) Exam/Review of Systems Vital Signs Vitals Vital Signs Date Time Temp Pulse Resp B/P Pulse Ox O2 Delivery O2 Flow Rate FiO2 12/14/16 14:18 98.0 86 18 165/86 100 Intake and Output 12/13/16 12/13/16 12/14/16 15:00 23:00 07:00 Intake Total 1200 ml 460 ml Balance 1200 ml 460 ml Exam Neck: supple Respiratory: diminished breath sounds Cardiovascular: regular rate and rhythm Gastrointestinal: bowel sounds (+), soft Extremities: edema (left leg++) Results Result Diagram: 12/14/16 0541 12/14/16 0541 Results 24 hrs Laboratory Tests Test 12/14/16 05:41 White Blood Count 5.8 Red Blood Count 2.58 L Hemoglobin 7.3 L Hematocrit 24.2 L Mean Corpuscular Volume 93.8 Mean Corpuscular Hemoglobin 28.3 L Mean Corpuscular Hemoglobin Concent 30.2 L Red Cell Distribution Width 16.6 H Platelet Count 177 Mean Platelet Volume 11.3 H Neutrophils % 55.2 Lymphocytes % 26.4 Monocytes % 10.3 Eosinophils % 7.5 H Basophils % 0.3 Nucleated Red Blood Cells % 0.0 Neutrophils # 3.2 Lymphocytes # 1.5 Monocytes # 0.6 Eosinophils # 0.4 Basophils # 0.0 Nucleated Red Blood Cells # 0.0 Sodium Level 140 Potassium Level 4.7 Chloride Level 104 Carbon Dioxide Level 22 Anion Gap 19 H Blood Urea Nitrogen 74 H Creatinine 11.21 H Glucose Level 107 Calcium Level 8.2 L Medications Medications Current Medications Acetaminophen (Tylenol Tab) 650 mg Q6H PRN PO PAIN LEVEL 1-3 OR FEVER; Start 12/07/16 at 11:00 Docusate Sodium (Colace) 100 mg Q12H PRN PO CONSTIPATION Last administered on 12/11/16 14:42; Admin Dose 100 MG; Start 12/07/16 at 11:00 Magnesium Hydroxide (Milk Of Mag) 30 ml DAILY PRN PO CONSTIPATION; Start at 11:00 Bisacodyl (Dulcolax) 5 mg DAILY PRN PO CONSTIPATION Last administered on 22:56; Admin Dose 5 MG; Start 12/07/16 at 11:00 Aspirin (Aspirin) 81 mg DAILY PO Last administered on 12/14/16 09:32; Admin Dose 81 MG; Start 12/08/16 at 09:00 Furosemide (Lasix) 20 mg DAILY PO Last administered on 12/13/16 08:23; Admin Dose 20 MG; Start 12/08/16 at 09:00 Nifedipine (Procardia Xl) 60 mg DAILY PO Last administered on 12/13/16 08:22; Admin Dose 60 MG; Start 12/08/16 at 09:00 Topiramate (Topamax Sprinkle) 25 mg BID PO Last administered on 12/14/16 09:32 ; Admin Dose 25 MG; Start 12/07/16 at 21:00 Multivit/Ca Carb/ B Cmplx/FA/Prenat (Sommer-Samantha) 1 tab DAILY PO Last administered on 12/14/16 09:31; Admin Dose 1 TAB; Start 12/09/16 at 09:00 Folic Acid (Folic Acid) 1 mg DAILY PO Last administered on 12/14/16 09:32; Admin Dose 1 MG; Start 12/09/16 at 09:00 Epoetin Zacarias (Epogen (Esrd)) 4,000 units TuThSa@17 SC Last administered on 12/13 17:33; Admin Dose 4,000 UNITS; Start 12/10/16 at 17:00 Diphenhydramine HCl (Benadryl) 25 mg Q6H PRN IV for itching Last administered on 12/14/16 06:08; Admin Dose 25 MG; Start 12/10/16 at 12:00 Clonidine (Catapres) 0.2 mg TID PO Last administered on 12/13/16 20:39; Admin Dose 0.2 MG; Start 12/11/16 at 21:00 Hydromorphone HCl (Dilaudid) 1 mg Q3H PRN IV PAIN Last administered on 15:24; Admin Dose 1 MG; Start 12/12/16 at 23:45 Morphine Sulfate (Ms Contin (Er)) 15 mg BID PO Last administered on 12/14/16 09:32; Admin Dose 15 MG; Start 12/13/16 at 09:00 Gabapentin (Neurontin) 200 mg BID PO Last administered on 12/14/16 09:32; Admin Dose 200 MG; Start 12/13/16 at 09:00 Heparin Sodium (Porcine) (Heparin (5000 Units/0.5 ml)) 5,000 unit BID SC Last administered on 12/14/16 09:52; Admin Dose 5,000 UNIT; Start 12/13/16 at 13:00 Labetalol HCl (Normodyne) 100 mg TID PO ; Start 12/14/16 at 09:00 MIKE VEGA MD Dec 14, 2016 18:30
[2016-12-14] MEDS: BISACODYL (EC) 5 MG TAB PO PRN (21:26)
[2016-12-14] MEDS ORDERED: SOD CHLORIDE 0.9% 100 ML ONE (22:58)
[2016-12-14] MEDS ORDERED: IODIXANOL LOCM 50 ML BTL ONE (22:58)
[2016-12-14] MEDS ORDERED: IODIXANOL LOCM 100 ML BTL ONE (22:58)
[2016-12-15] VITALS (13 sets, daily range): BP systolic 132–193; BP diastolic 65–121; PULSE 80–96; RESP 18–20
[2016-12-15] MEDS: HYDROmorphONE 1 MG/ML SYG IV PRN ×7 (00:35→23:34)
[2016-12-15] MEDS: DIPHENHYDRAMINE 50 MG INJ IV PRN ×4 (00:35→21:38)
[2016-12-15 06:04] LABS: BASOPHILS % 0.3 % (0.0-2.0); EOSINOPHILS # 0.4 10^3/ul (0.0-0.5); EOSINOPHILS % 6.7 % (0.0-7.0); HEMATOCRIT 24.8 % (37.0-47.0); HEMOGLOBIN 7.7 g/dl (12.0-16.0); LYMPHOCYTES # 1.4 10^3/ul (0.8-2.9); LYMPHOCYTES % 23.6 % (15.0-51.0); MEAN CORPUSCULAR HEMOGLOBIN 29.5 pg (29.0-33.0); MEAN PLATELET VOLUME 10.9 fl (7.4-10.4); MONOCYTE # 0.6 10^3/ul (0.3-0.9); MONOCYTES % 10.8 % (0.0-11.0); NEUTROPHIL # 3.4 10^3/ul (1.6-7.5); NEUTROPHILS % 58.3 % (39.0-77.0); PLATELET COUNT 183 10^3/UL (140-415); RED BLOOD COUNT 2.61 10^6/ul (4.20-5.40); RED CELL DISTRIBUTION WIDTH 16.7 % (11.5-14.5); WHITE BLOOD COUNT 5.8 10^3/ul (4.8-10.8)
[2016-12-15 06:45] LABS: CALCIUM 8.5 mg/dl (8.4-10.2); CREATININE 9.71 mg/dl (0.44-1.00); POTASSIUM 4.9 mmol/L (3.5-5.1)
[2016-12-15] MEDS: SEVELAMER 800 MG TAB PO SCH ×3 (08:15→17:22)
[2016-12-15] MEDS: MULTIVIT/CA CARB/B CMPLX/FA TAB PO SCH (09:00)
[2016-12-15] MEDS: ASPIRIN 81 MG TAB PO SCH (09:00)
[2016-12-15] MEDS: LABETALOL 100 MG TAB PO SCH ×4 (09:00→21:31)
[2016-12-15] MEDS: FUROSEMIDE 20 MG TAB PO SCH (09:00)
[2016-12-15] MEDS: TOPIRAMATE SPRINKLE 25 MG CAP PO SCH ×3 (09:00→20:13)
[2016-12-15] MEDS: FOLIC ACID 1 MG TAB PO SCH (09:00)
[2016-12-15] MEDS: GABAPENTIN 100 MG CAP PO SCH ×2 (09:00→20:13)
[2016-12-15] MEDS: morphine (ER) 15 MG TAB PO SCH ×2 (09:10→21:30)
[2016-12-15] MEDS: HEPARIN 5,000 UNIT/0.5 ML VIAL SC SCH ×2 (09:12→20:22)
[2016-12-15] MEDS: NIFEdipine (XL) 60 MG TAB PO SCH (09:29)
--- NOTE | 2016-12-15 09:48 | CONS ---
Date/Time of Note Date/Time of Note DATE: 12/15/16 TIME: 09:46 Assessment/Plan Assessment/Plan Chief Complaint/Hosp Course This is a 31-year-old female who has a history of end-stage renal disease on hemodialysis who states that approximately 4 days prior to this admission she started developing increasing right lower extremity and abdominal discomfort. Patient states pain is increased in severity she describes as a constant pain with some peaks and troughs associated with, she describes it as severe grade 9/ 10. With current pain control medication states that her pain is not alleviated both there is no decrease in the severity and also whenever she gets only short lasting. However patient appears to be very comfortable at this time and was sleeping when I entered the room and does not appear to be any major distress. We will give her the benefit of treatment as patient may have been medicated prior to my arrival. States that only 10% of her pain at most is alleviated by her current pain medication states that it interferes with her physical functioning mood sleeping patterns overall functioning since patient began in throughout this current hospitalization. Mental cloudiness sweating fatigue drowsiness there is no past medical history of purposeful oversedation suicide ideations she does not appear to be overmedicated, she is not unkempt nor she asked for frequent early renewals of her medications. Or further she is not asked for escalating doses. I do not get the impression that she is using pain control medication for stressors and she is not insisting on certain medications for that she denies alcohol smoking or illicit drug use. She was only taking [place] for pain control prior to hospitalization without relief of the pain as noted above. Problems: Consultation Date/Type/Reason Admit Date/Time Dec 07, 2016 at 10:40 Initial Consult Date Referring Provider: JULISSA NI MD 24 HR Interval Summary Free Text/Dictation She is doing okay pain is under control, she is scheduled to be discharged today. Suggest sending her home on low-dose Dilaudid [place] would be dangerous with her underlying renal dysfunction. Exam/Review of Systems Vital Signs Vitals Vital Signs Date Time Temp Pulse Resp B/P Pulse Ox O2 Delivery O2 Flow Rate FiO2 12/15/16 08:06 98.0 74 20 176/106 100 Intake and Output 12/14/16 12/14/16 12/15/16 15:00 23:00 07:00 Intake Total 500 ml 1810 ml 300 ml Output Total 4500 ml Balance -4000 ml 1810 ml 300 ml Exam Constitutional: alert, oriented, well developed Psych: anxiety Eyes: EOMI (Bilateral pupils 4 mm reactive not pinpoint) Neurological: PASSENGER RELATIONS REPRESENTATIVE II-XII intact, nl mental status, nl speech Results Result Diagram: 12/15/16 0539 12/15/16 0539 Results 24 hrs Laboratory Tests Test 12/15/16 05:39 White Blood Count 5.8 Red Blood Count 2.61 L Hemoglobin 7.7 L Hematocrit 24.8 L Mean Corpuscular Volume 95.0 Mean Corpuscular Hemoglobin 29.5 Mean Corpuscular Hemoglobin Concent 31.0 L Red Cell Distribution Width 16.7 H Platelet Count 183 Mean Platelet Volume 10.9 H Neutrophils % 58.3 Lymphocytes % 23.6 Monocytes % 10.8 Eosinophils % 6.7 Basophils % 0.3 Nucleated Red Blood Cells % 0.0 Neutrophils # 3.4 Lymphocytes # 1.4 Monocytes # 0.6 Eosinophils # 0.4 Basophils # 0.0 Nucleated Red Blood Cells # 0.0 Sodium Level 142 Potassium Level 4.9 Chloride Level 103 Carbon Dioxide Level 25 Anion Gap 19 H Blood Urea Nitrogen 61 H Creatinine 9.71 H Glucose Level 98 Calcium Level 8.5 Medications Medications Current Medications Acetaminophen (Tylenol Tab) 650 mg Q6H PRN PO PAIN LEVEL 1-3 OR FEVER; Start 12/07/16 at 11:00 Docusate Sodium (Colace) 100 mg Q12H PRN PO CONSTIPATION Last administered on 12/11/16 14:42; Admin Dose 100 MG; Start 12/07/16 at 11:00 Magnesium Hydroxide (Milk Of Mag) 30 ml DAILY PRN PO CONSTIPATION; Start at 11:00 Bisacodyl (Dulcolax) 5 mg DAILY PRN PO CONSTIPATION Last administered on 21:26; Admin Dose 5 MG; Start 12/07/16 at 11:00 Aspirin (Aspirin) 81 mg DAILY PO Last administered on 12/14/16 09:32; Admin Dose 81 MG; Start 12/08/16 at 09:00 Furosemide (Lasix) 20 mg DAILY PO Last administered on 12/13/16 08:23; Admin Dose 20 MG; Start 12/08/16 at 09:00 Nifedipine (Procardia Xl) 60 mg DAILY PO Last administered on 12/15/16 09:29; Admin Dose 60 MG; Start 12/08/16 at 09:00 Topiramate (Topamax Sprinkle) 25 mg BID PO Last administered on 12/14/16 21:05 ; Admin Dose 25 MG; Start 12/07/16 at 21:00 Multivit/Ca Carb/ B Cmplx/FA/Prenat (Sommer-Samantha) 1 tab DAILY PO Last administered on 12/14/16 09:31; Admin Dose 1 TAB; Start 12/09/16 at 09:00 Folic Acid (Folic Acid) 1 mg DAILY PO Last administered on 12/14/16 09:32; Admin Dose 1 MG; Start 12/09/16 at 09:00 Epoetin Zacarias (Epogen (Esrd)) 4,000 units TuThSa@17 SC Last administered on 12/13 17:33; Admin Dose 4,000 UNITS; Start 12/10/16 at 17:00 Diphenhydramine HCl (Benadryl) 25 mg Q6H PRN IV for itching Last administered on 12/15/16 07:26; Admin Dose 25 MG; Start 12/10/16 at 12:00 Clonidine (Catapres) 0.2 mg TID PO Last administered on 12/14/16 21:06; Admin Dose 0.2 MG; Start 12/11/16 at 21:00 Hydromorphone HCl (Dilaudid) 1 mg Q3H PRN IV PAIN Last administered on 07:25; Admin Dose 1 MG; Start 12/12/16 at 23:45 Morphine Sulfate (Ms Contin (Er)) 15 mg BID PO Last administered on 12/15/16 09:10; Admin Dose 15 MG; Start 12/13/16 at 09:00 Gabapentin (Neurontin) 200 mg BID PO Last administered on 12/14/16 21:05; Admin Dose 200 MG; Start 12/13/16 at 09:00 Heparin Sodium (Porcine) (Heparin (5000 Units/0.5 ml)) 5,000 unit BID SC Last administered on 12/15/16 09:12; Admin Dose 5,000 UNIT; Start 12/13/16 at 13:00 Labetalol HCl (Normodyne) 100 mg TID PO Last administered on 12/14/16t 21:05; Admin Dose 100 MG; Start 12/14/16 at 09:00 NATHAN GIRARD Dec 15, 2016 09:48
--- NOTE | 2016-12-15 10:17 | RADRPT ---
PROCEDURE: CT angiography of the pelvis and bilateral lower extremities with contrast. CLINICAL INDICATION: Peripheral arterial disease, peripheral vascular disease, bilateral lower ext remity pain and swelling. TECHNIQUE: CT angiography and venography of the pelvis and bilateral lower extremities was perform ed on a high resolution multidetector scanner with intravenous contrast. Multiplanar reconstructions , three-dimensional reconstructions, as well as maximal intensity projection images are produced and reviewed. One or more of the following dose reduction techniques were used: Automated exposure cont rol; Adjustment of the mA and/or kV according to patient size; Use of iterative reconstruction techn ique. CTDI = 3, 6, 46, 15, 10 mGy. DLP = 3012 mGy-cm. CONTRAST: 135 ml Visipaque 320 administered without adverse event. COMPARISON: Bilateral lower extremity duplex 12/13/2016, CT abdomen pelvis 06/20/2015 FINDINGS: Visualized infrarenal Aorta: Unremarkable visualized abdominal aorta with no focal stenosis, dissec tion or aneurysm/ Right Common Iliac: patent, without irregularity or stenosis Right Internal Iliac: patent, without irregularity or stenosis Right External Iliac: patent, without irregularity or stenosis Left Common Iliac: patent, without irregularity or stenosis Left Internal Iliac: patent, without irregularity or stenosis Left External Iliac: patent, without irregularity or stenosis RIGHT LOWER EXTREMITY RUN-OFF: Right VEHICLE CALIBRATION ENGINEER: patent, without irregularity or stenosis Right SFA: patent, without irregularity or stenosis Right Profunda Femoris: patent, without irregularity or stenosis Right Popliteal: patent, without irregularity or stenosis Right Anterior Tibial: Diffusely small in caliber but without definite stenosis. Right Tibioperoneal Trunk: patent, without irregularity or stenosis Right Peroneal: Dominant runoff vessel with branches supplying the dorsalis pedis and plantar arch. Right Posterior Tibial: Diffusely small in caliber but without definite stenosis Right Dorsalis Pedis: patent, without irregularity or stenosis Right Plantar Arch: patent, without irregularity or stenosis LEFT LOWER EXTREMITY RUN-OFF: Left VEHICLE CALIBRATION ENGINEER: patent, without irregularity or stenosis Left SFA: patent, without irregularity or stenosis Left Profunda Femoris: patent, without irregularity or stenosis Left Popliteal: patent, without irregularity or stenosis Left Anterior Tibial: Diffusely small in caliber but without definite stenosis. Left Tibioperoneal Trunk: patent, without irregularity or stenosis Left Peroneal: Dominant runoff vessel with branches supplying the dorsalis pedis and plantar arch. Left Posterior Tibial: Diffusely small in caliber but without definite stenosis Left Dorsalis Pedis: patent, without irregularity or stenosis Left Plantar Arch: patent, without irregularity or stenosis VENOGRAPHIC FINDINGS: Venographic examination is partially degraded due to low level of venous intravascular enhancement a chieved measuring less than 120 HU. There is no evidence of flow-limiting deep venous thrombosis within the pelvis or bilateral lower ex tremities. Nonocclusive thrombus associated with the patient's left femoral is not completely excluded due to b eam hardening artifact and poor intravascular enhancement. There is suspected extrinsic compression of the left iliac vein by the left common iliac artery whic h is partially diminished due to the presence of the left femoral approach venous catheter; degree o f compression appeared greater on the patient's prior CT scan 06/20/2015. ADDITIONAL FINDINGS: Moderate constipation. Left femoral central venous catheter terminates within the infrarenal inferio r vena cava. Diffuse subcutaneous edema of the left lower extremity is present throughout which is enlarged as co mpared to the right. Mildly prominent left inguinal lymph nodes are present. IMPRESSION: Normal CT angiography of the pelvis and bilateral lower extremities. Venographic examination is partially degraded due to low level of venous intravascular enhancement a chieved measuring less than 120 HU. There is no evidence of flow-limiting deep venous thrombosis within the pelvis or bilateral lower ex tremities. Nonocclusive thrombus associated with the patient's left femoral is not completely exclud ed due to beam hardening artifact and poor intravascular enhancement. There is suspected extrinsic compression of the left iliac vein by the left common iliac artery whic h is partially diminished due to the presence of the left femoral approach venous catheter; degree o f compression appeared greater on the patient's prior CT scan 06/20/2015. Diffuse subcutaneous edema of the left lower extremity is present throughout which is enlarged as co mpared to the right. RPTAT: PP .Darvin Yarbrough MD, MD Date Time Electronically viewed and signed by .Darvin Yarbrough MD, on 12/15/2016 10:16 .B/
[2016-12-15] MEDS ORDERED: DIPHENHYDRAMINE 50 MG INJ IV SCH (10:30)
[2016-12-15] MEDS ORDERED: HEPARIN 1000 UNITS/ML 10 ML INJ CATHETER SCH (11:00)
--- NOTE | 2016-12-15 12:07 | PN ---
Date/Time of Note Date/Time of Note DATE: 12/15/16 TIME: 12:02 Assessment/Plan Lines/Catheters IV [facility] Assessment/Plan Chief Complaint/Hosp Course -Endstage renal disease and central stenosis: It seems the patient has had a longstanding history of multiple chest wall catheters and fistula creations in which have all failed. There is a strong suggestion that patient has central occlusion/stenosis in which she would need to be further evaluated for possible creation of new advanced fistula. -S/P Left groin catheter exchange to a Aris catheter -S/P bilateral UE venograms -Will schedule for bilateral lower extremity venograms to evaluate her iliac vein compression and stenosis, however she wants to be completely anesthetized and this will need to be coordinated with cardiac cath lab radiology technologist and anesthesia team -Optimize vascular status (BP meds, diet, nutrition, exercise, sugar control, anti-platelets). -Discussed findings, plan and management with the patient and she understands. -Thank you for allowing us to partake in the care of your patient. Please call with any questions. Problems: Exam/Review of Systems Vital Signs Vitals Vital Signs Date Time Temp Pulse Resp B/P Pulse Ox O2 Delivery O2 Flow Rate FiO2 12/18/16 13:37 98.0 77 19 122/74 98 12/16/16 08:00 Room Air Intake and Output 12/17/16 12/17/16 12/18/16 14:59 22:59 06:59 Intake Total 500 ml 650 ml 700 ml Output Total 4500 ml 0 ml Balance -4000 ml 650 ml 700 ml Exam Free Text/Dictation GENERAL: Alert and oriented x3, PULMONARY: Clear to auscultation bilaterally. CARDIOVASCULAR: S1, S2 present. ABDOMEN: Soft, nontender, nondistended. Bowel sounds positive. Truncal obesity. EXTREMITIES: Right lower extremity palpable femoral pulse, faint pedal pulse. Motor, sensory intact. Cap refill 2 to 3 seconds. Left lower extremity groin catheter intact, mildly tender upon palpation improving, erythema resolving, no purulence identified. Palpable femoral pulse , faint pedal pulse. Motor, sensory intact. edema 2-3+ Results Result Diagram: 12/18/16 0529 12/18/16 0529 JULISSA NI MD Dec 15, 2016 12:07
[2016-12-15] MEDS: CEFAZOLIN 2 GM/50 ML (PMX) 50 ML IVPB SCH (13:14)
--- NOTE | 2016-12-15 13:23 | CONS ---
Date/Time of Note Date/Time of Note DATE: 12/15/16 TIME: 13:22 Consult Date/Type/Reason Admit Date/Time Dec 07, 2016 at 10:40 Type of Consultation: ID Ordering Provider: JULISSA NI MD Objective Vital Signs Date Time Temp Pulse Resp B/P Pulse Ox O2 Delivery O2 Flow Rate FiO2 12/15/16 13:08 92 12/15/16 11:50 12 12/15/16 08:06 98.0 176/106 100 Intake and Output 12/14/16 12/14/16 12/15/16 15:00 23:00 07:00 Intake Total 500 ml 1810 ml 300 ml Output Total 4500 ml Balance -4000 ml 1810 ml 300 ml Results/Medications Result Diagram: 12/15/16 0539 12/15/16 0539 Results 24 hrs Laboratory Tests Test 12/15/16 05:39 White Blood Count 5.8 Red Blood Count 2.61 L Hemoglobin 7.7 L Hematocrit 24.8 L Mean Corpuscular Volume 95.0 Mean Corpuscular Hemoglobin 29.5 Mean Corpuscular Hemoglobin Concent 31.0 L Red Cell Distribution Width 16.7 H Platelet Count 183 Mean Platelet Volume 10.9 H Neutrophils % 58.3 Lymphocytes % 23.6 Monocytes % 10.8 Eosinophils % 6.7 Basophils % 0.3 Nucleated Red Blood Cells % 0.0 Neutrophils # 3.4 Lymphocytes # 1.4 Monocytes # 0.6 Eosinophils # 0.4 Basophils # 0.0 Nucleated Red Blood Cells # 0.0 Sodium Level 142 Potassium Level 4.9 Chloride Level 103 Carbon Dioxide Level 25 Anion Gap 19 H Blood Urea Nitrogen 61 H Creatinine 9.71 H Glucose Level 98 Calcium Level 8.5 Medications Current Medications Acetaminophen (Tylenol Tab) 650 mg Q6H PRN PO PAIN LEVEL 1-3 OR FEVER; Start 12/07/16 at 11:00 Docusate Sodium (Colace) 100 mg Q12H PRN PO CONSTIPATION Last administered on 12/11/16 14:42; Admin Dose 100 MG; Start 12/07/16 at 11:00 Magnesium Hydroxide (Milk Of Mag) 30 ml DAILY PRN PO CONSTIPATION; Start at 11:00 Bisacodyl (Dulcolax) 5 mg DAILY PRN PO CONSTIPATION Last administered on 21:26; Admin Dose 5 MG; Start 12/07/16 at 11:00 Aspirin (Aspirin) 81 mg DAILY PO Last administered on 12/14/16 09:32; Admin Dose 81 MG; Start 12/08/16 at 09:00 Furosemide (Lasix) 20 mg DAILY PO Last administered on 12/13/16 08:23; Admin Dose 20 MG; Start 12/08/16 at 09:00 Nifedipine (Procardia Xl) 60 mg DAILY PO Last administered on 12/15/16 09:29; Admin Dose 60 MG; Start 12/08/16 at 09:00 Topiramate (Topamax Sprinkle) 25 mg BID PO Last administered on 12/14/16 21:05 ; Admin Dose 25 MG; Start 12/07/16 at 21:00 Multivit/Ca Carb/ B Cmplx/FA/Prenat (Sommer-Samantha) 1 tab DAILY PO Last administered on 12/14/16 09:31; Admin Dose 1 TAB; Start 12/09/16 at 09:00 Folic Acid (Folic Acid) 1 mg DAILY PO Last administered on 12/14/16 09:32; Admin Dose 1 MG; Start 12/09/16 at 09:00 Epoetin Zacarias (Epogen (Esrd)) 4,000 units TuThSa@17 SC Last administered on 12/13 17:33; Admin Dose 4,000 UNITS; Start 12/10/16 at 17:00 Diphenhydramine HCl (Benadryl) 25 mg Q6H PRN IV for itching Last administered on 12/15/16 07:26; Admin Dose 25 MG; Start 12/10/16 at 12:00 Clonidine (Catapres) 0.2 mg TID PO Last administered on 12/14/16 21:06; Admin Dose 0.2 MG; Start 12/11/16 at 21:00 Hydromorphone HCl (Dilaudid) 1 mg Q3H PRN IV PAIN Last administered on 10:28; Admin Dose 1 MG; Start 12/12/16 at 23:45 Morphine Sulfate (Ms Contin (Er)) 15 mg BID PO Last administered on 12/15/16 09:10; Admin Dose 15 MG; Start 12/13/16 at 09:00 Gabapentin (Neurontin) 200 mg BID PO Last administered on 12/14/16 21:05; Admin Dose 200 MG; Start 12/13/16 at 09:00 Heparin Sodium (Porcine) (Heparin (5000 Units/0.5 ml)) 5,000 unit BID SC Last administered on 12/15/16 09:12; Admin Dose 5,000 UNIT; Start 12/13/16 at 13:00 Labetalol HCl (Normodyne) 100 mg TID PO Last administered on 12/14/16 21:05; Admin Dose 100 MG; Start 12/14/16 at 09:00 Diphenhydramine HCl (Benadryl) 50 mg ONCE IV Last administered on 12/15/16 12: 42; Admin Dose 50 MG; Start 12/15/16 at 10:30; Stop 12/15/16 at 19:00 Assessment/Plan Chief Complaint/Hosp Course SUBJECTIVE: No events overnight. The patient is alert, looks comfortable, no fevers. INDWELLINGS: R femoral Aris. MICROBIOLOGY: Blood cultures and tip culture growing oxacillin-sensitive Staphylococcus aureus. ANTIMICROBIALS: Ancef. PHYSICAL EXAMINATION: GENERAL: This is a well-developed, obese, middle-aged -[place] woman who is awake, in no distress. HEENT: Head atraumatic, normocephalic. Sclerae anicteric. Buccal mucosa dry. NECK: Supple. CHEST: Rise is symmetrical. Breath sounds diminished to bases. HEART: S1, S2. ABDOMEN: Soft. Bowel tones present. EXTREMITIES: Without cyanosis. ASSESSMENT: 1. Line sepsis with oxacillin sensitive Staphylococcus aureus bacteremia. 2. End-stage renal disease. 3. Hypertension. 4. History of noncompliance and possible substance use. PLAN: The patient remains stable. Repeat bld cx negative, continue abx. If the new line was placed over the guidewire, then we recommend to pull it out with new temporary line placement if possible. The patient is to complete 4 to 6 weeks of IV antibiotics. Vascular rec-s [facility] staff Problems: BILL HOFFMAN NP Dec 15, 2016 13:23
[2016-12-15] MEDS: EPOETIN 4000 UNITS/1 ML INJ (ESRD) SC SCH (13:35)
--- NOTE | 2016-12-15 13:57 | CONS ---
Date/Time of Note Date/Time of Note DATE: 12/15/16 TIME: 13:55 Assessment/Plan Assessment/Plan Chief Complaint/Hosp Course IMPRESSION: 1. Preoperative evaluation prior to creation of AV fistula.-negative trop cx3/ NL EF by echo. No sig valve abnl. OK to proceed to OR at moderate risk without further noninvasive evaluation 2. Chest pain, atypical at this time, normal ejection fraction on echo. 3. Hypertension-uncontrolled 4. End-stage renal disease on hemodialysis. 5. History of migraine headaches. 6. History of multiple failed chest wall catheters likely cause the patient's intermittent chest pains.-Negative trop x3 7. Edema of [id number]-[id number] doppler neg for DVT Recc: -Continue current anti-hypertensives with increase to procardia XL and f/u BP after receiving -HD for volume removal -Ongoing eval of assymetric LE edema -pnding AVF creation Problems: Consultation Date/Type/Reason Admit Date/Time Dec 07, 2016 at 10:40 Initial Consult Date 12/12/2016 Type of Consultation: cardiology Reason for Consultation pre-op Referring Provider: JULISSA NI MD Exam/Review of Systems Vital Signs Vitals Vital Signs Date Time Temp Pulse Resp B/P Pulse Ox O2 Delivery O2 Flow Rate FiO2 12/15/16 13:08 92 12/15/16 11:50 12 12/15/16 08:06 98.0 176/106 100 Intake and Output 12/14/16 12/14/16 12/15/16 15:00 23:00 07:00 Intake Total 500 ml 1810 ml 300 ml Output Total 4500 ml Balance -4000 ml 1810 ml 300 ml Exam Review of Systems: CONSTITUTIONAL: No fevers, chills. PULMONARY: No sob CARDIOVASCULAR: No chest pain/palpitations GASTROINTESTINAL: No nausea/vomiting. GENITOURINARY: No hematuria/dysuria. MUSCULOSKELETAL: No myagias/arthalgias. PSYCHIATRIC: The patient denies depression. NEUROLOGIC: No weakness Constitutional: alert, oriented Psych: no complaints Head: normocephalic ENMT: mucosa pink and moist Neck: jvd (9 cm water), supple Respiratory: diminished breath sounds (@ bases/B) Cardiovascular: regular rate and rhythm Gastrointestinal: non-tender, soft Musculoskeletal: muscle tone (normal) Extremities: edema (none) Neurological: other (No focal deficits) Results Result Diagram: 12/15/16 0539 12/15/16 0539 Results 24 hrs Laboratory Tests Test 12/15/16 05:39 White Blood Count 5.8 Red Blood Count 2.61 L Hemoglobin 7.7 L Hematocrit 24.8 L Mean Corpuscular Volume 95.0 Mean Corpuscular Hemoglobin 29.5 Mean Corpuscular Hemoglobin Concent 31.0 L Red Cell Distribution Width 16.7 H Platelet Count 183 Mean Platelet Volume 10.9 H Neutrophils % 58.3 Lymphocytes % 23.6 Monocytes % 10.8 Eosinophils % 6.7 Basophils % 0.3 Nucleated Red Blood Cells % 0.0 Neutrophils # 3.4 Lymphocytes # 1.4 Monocytes # 0.6 Eosinophils # 0.4 Basophils # 0.0 Nucleated Red Blood Cells # 0.0 Sodium Level 142 Potassium Level 4.9 Chloride Level 103 Carbon Dioxide Level 25 Anion Gap 19 H Blood Urea Nitrogen 61 H Creatinine 9.71 H Glucose Level 98 Calcium Level 8.5 Medications Medications Current Medications Acetaminophen (Tylenol Tab) 650 mg Q6H PRN PO PAIN LEVEL 1-3 OR FEVER; Start 12/07/16 at 11:00 Docusate Sodium (Colace) 100 mg Q12H PRN PO CONSTIPATION Last administered on 12/11/16 14:42; Admin Dose 100 MG; Start 12/07/16 at 11:00 Magnesium Hydroxide (Milk Of Mag) 30 ml DAILY PRN PO CONSTIPATION; Start at 11:00 Bisacodyl (Dulcolax) 5 mg DAILY PRN PO CONSTIPATION Last administered on 21:26; Admin Dose 5 MG; Start 12/07/16 at 11:00 Aspirin (Aspirin) 81 mg DAILY PO Last administered on 12/14/16 09:32; Admin Dose 81 MG; Start 12/08/16 at 09:00 Furosemide (Lasix) 20 mg DAILY PO Last administered on 12/13/16 08:23; Admin Dose 20 MG; Start 12/08/16 at 09:00 Nifedipine (Procardia Xl) 60 mg DAILY PO Last administered on 12/15/16 09:29; Admin Dose 60 MG; Start 12/08/16 at 09:00 Topiramate (Topamax Sprinkle) 25 mg BID PO Last administered on 12/14/16 21:05 ; Admin Dose 25 MG; Start 12/07/16 at 21:00 Multivit/Ca Carb/ B Cmplx/FA/Prenat (Sommer-Samantha) 1 tab DAILY PO Last administered on 12/14/16 09:31; Admin Dose 1 TAB; Start 12/09/16 at 09:00 Folic Acid (Folic Acid) 1 mg DAILY PO Last administered on 12/14/16 09:32; Admin Dose 1 MG; Start 12/09/16 at 09:00 Epoetin Zacarias (Epogen (Esrd)) 4,000 units TuThSa@17 SC Last administered on 12/15 13:35; Admin Dose 4,000 UNITS; Start 12/10/16 at 17:00 Diphenhydramine HCl (Benadryl) 25 mg Q6H PRN IV for itching Last administered on 12/15/16 07:26; Admin Dose 25 MG; Start 12/10/16 at 12:00 Clonidine (Catapres) 0.2 mg TID PO Last administered on 12/14/16 21:06; Admin Dose 0.2 MG; Start 12/11/16 at 21:00 Hydromorphone HCl (Dilaudid) 1 mg Q3H PRN IV PAIN Last administered on 10:28; Admin Dose 1 MG; Start 12/12/16 at 23:45 Morphine Sulfate (Ms Contin (Er)) 15 mg BID PO Last administered on 12/15/16 09:10; Admin Dose 15 MG; Start 12/13/16 at 09:00 Gabapentin (Neurontin) 200 mg BID PO Last administered on 12/14/16 21:05; Admin Dose 200 MG; Start 12/13/16 at 09:00 Heparin Sodium (Porcine) (Heparin (5000 Units/0.5 ml)) 5,000 unit BID SC Last administered on 12/15/16 09:12; Admin Dose 5,000 UNIT; Start 12/13/16 at 13:00 Labetalol HCl (Normodyne) 100 mg TID PO Last administered on 12/14/16 21:05; Admin Dose 100 MG; Start 12/14/16 at 09:00 Diphenhydramine HCl (Benadryl) 50 mg ONCE IV Last administered on 12/15/16 12: 42; Admin Dose 50 MG; Start 12/15/16 at 10:30; Stop 12/15/16 at 19:00 ETHAN MCKINLEY Dec 15, 2016 13:57
--- NOTE | 2016-12-15 14:52 | PN ---
Date/Time of Note Date/Time of Note DATE: 12/15/16 TIME: 14:47 Assessment/Plan VTE Prophylaxis VTE Prophylaxis Intervention: heparin Lines/Catheters IV Catheter Type (from Nrsg): Mid Line Assessment/Plan Chief Complaint/Hosp Course Assessment and plan 1. Bacteremia with MSSA. ID consult was consulted. Continue antibiotics. Left groin dialysis catheter was already replaced per vascular surgeon. . 2. End-stage renal disease. Continue on dialysis per nephrology recommendations. Tentative plan for AV fistula 3. Hypertension. Continue antihypertensives and adjust as needed 4. History of migraines. Continue with analgesics as needed. 5. left leg pain.repeat doppler of LLE negative for DVT. cont abx and analgesics Disposition plan: Per ID apartment leasing consultant, patient will need long-term antibiotics. Continue with regimen for now. Follow-up with vascular surgeon if need for further intervention for possible AV fistula placement. Discussed with Dr. umanzor Problems: Subjective 24 Hr Interval Summary Free Text/Dictation still reports having some pain Exam/Review of Systems Vital Signs Vitals Vital Signs Date Time Temp Pulse Resp B/P Pulse Ox O2 Delivery O2 Flow Rate FiO2 12/15/16 13:50 92 12/15/16 13:50 14 12/15/16 08:06 98.0 176/106 100 Intake and Output 12/14/16 12/14/16 12/15/16 15:00 23:00 07:00 Intake Total 500 ml 1810 ml 300 ml Output Total 4500 ml Balance -4000 ml 1810 ml 300 ml Exam Constitutional: alert, oriented Psych: nl mood/affect Head: normocephalic Respiratory: clear to auscultation, normal air movement Cardiovascular: regular rate and rhythm Gastrointestinal: non-tender, soft Musculoskeletal: swelling (swelling left lower extremity) pain on palpation, unchanged 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, nl mental status, nl speech Skin: other (dialysis catheter left groin ) Results Result Diagram: 12/15/1639 12/15/1639 Results 24 hrs Laboratory Tests Test 12/15/16 05:39 White Blood Count 5.8 Red Blood Count 2.61 L Hemoglobin 7.7 L Hematocrit 24.8 L Mean Corpuscular Volume 95.0 Mean Corpuscular Hemoglobin 29.5 Mean Corpuscular Hemoglobin Concent 31.0 L Red Cell Distribution Width 16.7 H Platelet Count 183 Mean Platelet Volume 10.9 H Neutrophils % 58.3 Lymphocytes % 23.6 Monocytes % 10.8 Eosinophils % 6.7 Basophils % 0.3 Nucleated Red Blood Cells % 0.0 Neutrophils # 3.4 Lymphocytes # 1.4 Monocytes # 0.6 Eosinophils # 0.4 Basophils # 0.0 Nucleated Red Blood Cells # 0.0 Sodium Level 142 Potassium Level 4.9 Chloride Level 103 Carbon Dioxide Level 25 Anion Gap 19 H Blood Urea Nitrogen 61 H Creatinine 9.71 H Glucose Level 98 Calcium Level 8.5 Medications Medications Current Medications Acetaminophen (Tylenol Tab) 650 mg Q6H PRN PO PAIN LEVEL 1-3 OR FEVER; Start 12/07/16 at 11:00 Docusate Sodium (Colace) 100 mg Q12H PRN PO CONSTIPATION Last administered on 12/11/16 14:42; Admin Dose 100 MG; Start 12/07/16 at 11:00 Magnesium Hydroxide (Milk Of Mag) 30 ml DAILY PRN PO CONSTIPATION; Start at 11:00 Bisacodyl (Dulcolax) 5 mg DAILY PRN PO CONSTIPATION Last administered on 21:26; Admin Dose 5 MG; Start 12/07/16 at 11:00 Aspirin (Aspirin) 81 mg DAILY PO Last administered on 12/14/16 09:32; Admin Dose 81 MG; Start 12/08/16 at 09:00 Furosemide (Lasix) 20 mg DAILY PO Last administered on 12/13/16 08:23; Admin Dose 20 MG; Start 12/08/16 at 09:00 Nifedipine (Procardia Xl) 60 mg DAILY PO Last administered on 12/15/16 09:29; Admin Dose 60 MG; Start 12/08/16 at 09:00 Topiramate (Topamax Sprinkle) 25 mg BID PO Last administered on 12/14/16 21:05 ; Admin Dose 25 MG; Start 12/07/16 at 21:00 Multivit/Ca Carb/ B Cmplx/FA/Prenat (Sommer-Samantha) 1 tab DAILY PO Last administered on 12/14/16 09:31; Admin Dose 1 TAB; Start 12/09/16 at 09:00 Folic Acid (Folic Acid) 1 mg DAILY PO Last administered on 12/14/16 09:32; Admin Dose 1 MG; Start 12/09/16 at 09:00 Epoetin Zacarias (Epogen (Esrd)) 4,000 units TuThSa@17 SC Last administered on 12/15 13:35; Admin Dose 4,000 UNITS; Start 12/10/16 at 17:00 Diphenhydramine HCl (Benadryl) 25 mg Q6H PRN IV for itching Last administered on 12/15/16 07:26; Admin Dose 25 MG; Start 12/10/16 at 12:00 Clonidine (Catapres) 0.2 mg TID PO Last administered on 12/14/16 21:06; Admin Dose 0.2 MG; Start 12/11/16 at 21:00 Hydromorphone HCl (Dilaudid) 1 mg Q3H PRN IV PAIN Last administered on 10:28; Admin Dose 1 MG; Start 12/12/16 at 23:45 Morphine Sulfate (Ms Contin (Er)) 15 mg BID PO Last administered on 12/15/16 09:10; Admin Dose 15 MG; Start 12/13/16 at 09:00 Gabapentin (Neurontin) 200 mg BID PO Last administered on 12/14/16 21:05; Admin Dose 200 MG; Start 12/13/16 at 09:00 Heparin Sodium (Porcine) (Heparin (5000 Units/0.5 ml)) 5,000 unit BID SC Last administered on 12/15/16 09:12; Admin Dose 5,000 UNIT; Start 12/13/16 at 13:00 Labetalol HCl (Normodyne) 100 mg TID PO Last administered on 12/14/16 21:05; Admin Dose 100 MG; Start 12/14/16 at 09:00 Diphenhydramine HCl (Benadryl) 50 mg ONCE IV Last administered on 12/15/16 12: 42; Admin Dose 50 MG; Start 12/15/16 at 10:30; Stop 12/15/16 at 19:00 Nifedipine (Procardia Xl) 30 mg HS PO ; Start 12/15/16 at 21:00 TACHO ORTEGA Dec 15, 2016 14:52
[2016-12-15] MEDS ORDERED: hydrALAzine 20 MG INJ IV PRN (18:00)
--- NOTE | 2016-12-15 18:42 | CONS ---
Date/Time of Note Date/Time of Note DATE: 12/15/16 TIME: 18:41 Assessment/Plan Assessment/Plan Chief Complaint/Hosp Course IMPRESSION: 1. The patient has left groin wound 2. left lower ex edema 3. End-stage renal disease. 4. Hypertension. 5. cath related inf 6. Anemia. 7. History of [place] palsy. 8 damien sepsis 9 s/p venogram w central vein stenosis upper ex 10 hyperkalemia hx PLAN ANTIBIOTIC per vascular surgery HD mwf kayexalate prn angio lower ex seen Problems: Consultation Date/Type/Reason Admit Date/Time Dec 07, 2016 at 10:40 Initial Consult Date RENAL Reason for Consultation S/P ANGIOGRAM AND HD Referring Provider: JULISSA NI MD Exam/Review of Systems Vital Signs Vitals Vital Signs Date Time Temp Pulse Resp B/P Pulse Ox O2 Delivery O2 Flow Rate FiO2 12/15/16 17:26 80 172/100 12/15/16 15:41 97.5 20 100 Intake and Output 12/14/16 12/14/16 12/15/16 15:00 23:00 07:00 Intake Total 500 ml 1810 ml 300 ml Output Total 4500 ml Balance -4000 ml 1810 ml 300 ml Exam ENMT: nl external ears & nose Neck: supple Respiratory: clear to auscultation Gastrointestinal: bowel sounds (+) Results Result Diagram: 12/15/16 0539 12/15/16 0539 Results 24 hrs Laboratory Tests Test 12/15/16 05:39 White Blood Count 5.8 Red Blood Count 2.61 L Hemoglobin 7.7 L Hematocrit 24.8 L Mean Corpuscular Volume 95.0 Mean Corpuscular Hemoglobin 29.5 Mean Corpuscular Hemoglobin Concent 31.0 L Red Cell Distribution Width 16.7 H Platelet Count 183 Mean Platelet Volume 10.9 H Neutrophils % 58.3 Lymphocytes % 23.6 Monocytes % 10.8 Eosinophils % 6.7 Basophils % 0.3 Nucleated Red Blood Cells % 0.0 Neutrophils # 3.4 Lymphocytes # 1.4 Monocytes # 0.6 Eosinophils # 0.4 Basophils # 0.0 Nucleated Red Blood Cells # 0.0 Sodium Level 142 Potassium Level 4.9 Chloride Level 103 Carbon Dioxide Level 25 Anion Gap 19 H Blood Urea Nitrogen 61 H Creatinine 9.71 H Glucose Level 98 Calcium Level 8.5 Medications Medications Current Medications Acetaminophen (Tylenol Tab) 650 mg Q6H PRN PO PAIN LEVEL 1-3 OR FEVER; Start 12/07/16 at 11:00 Docusate Sodium (Colace) 100 mg Q12H PRN PO CONSTIPATION Last administered on 12/11/16 14:42; Admin Dose 100 MG; Start 12/07/16 at 11:00 Magnesium Hydroxide (Milk Of Mag) 30 ml DAILY PRN PO CONSTIPATION; Start at 11:00 Bisacodyl (Dulcolax) 5 mg DAILY PRN PO CONSTIPATION Last administered on 21:26; Admin Dose 5 MG; Start 12/07/16 at 11:00 Aspirin (Aspirin) 81 mg DAILY PO Last administered on 12/14/16 09:32; Admin Dose 81 MG; Start 12/08/16 at 09:00 Furosemide (Lasix) 20 mg DAILY PO Last administered on 12/13/16 08:23; Admin Dose 20 MG; Start 12/08/16 at 09:00 Nifedipine (Procardia Xl) 60 mg DAILY PO Last administered on 12/15/16 09:29; Admin Dose 60 MG; Start 12/08/16 at 09:00 Topiramate (Topamax Sprinkle) 25 mg BID PO Last administered on 12/15/16 15:37 ; Admin Dose 25 MG; Start 12/07/16 at 21:00 Multivit/Ca Carb/ B Cmplx/FA/Prenat (Sommer-Samantha) 1 tab DAILY PO Last administered on 12/14/16 09:31; Admin Dose 1 TAB; Start 12/09/16 at 09:00 Folic Acid (Folic Acid) 1 mg DAILY PO Last administered on 12/14/16 09:32; Admin Dose 1 MG; Start 12/09/16 at 09:00 Epoetin Zacarias (Epogen (Esrd)) 4,000 units TuThSa@17 SC Last administered on 12/15 13:35; Admin Dose 4,000 UNITS; Start 12/10/16 at 17:00 Diphenhydramine HCl (Benadryl) 25 mg Q6H PRN IV for itching Last administered on 12/15/16 15:34; Admin Dose 25 MG; Start 12/10/16 at 12:00 Clonidine (Catapres) 0.2 mg TID PO Last administered on 12/15/16 15:39; Admin Dose 0.2 MG; Start 12/11/16 at 21:00 Hydromorphone HCl (Dilaudid) 1 mg Q3H PRN IV PAIN Last administered on 15:34; Admin Dose 1 MG; Start 12/12/16 at 23:45 Morphine Sulfate (Ms Contin (Er)) 15 mg BID PO Last administered on 12/15/16 09:10; Admin Dose 15 MG; Start 12/13/16 at 09:00 Gabapentin (Neurontin) 200 mg BID PO Last administered on 12/14/16 21:05; Admin Dose 200 MG; Start 12/13/16 at 09:00 Heparin Sodium (Porcine) (Heparin (5000 Units/0.5 ml)) 5,000 unit BID SC Last administered on 12/15/16 09:12; Admin Dose 5,000 UNIT; Start 12/13/16 at 13:00 Labetalol HCl (Normodyne) 100 mg TID PO Last administered on 12/15/16 15:38; Admin Dose 100 MG; Start 12/14/16 at 09:00 Diphenhydramine HCl (Benadryl) 50 mg ONCE IV Last administered on 12/15/16 12: 42; Admin Dose 50 MG; Start 12/15/16 at 10:30; Stop 12/15/16 at 19:00 Nifedipine (Procardia Xl) 30 mg HS PO ; Start 12/15/16 at 21:00 Hydralazine HCl (Apresoline) 10 mg Q4H PRN IV HYPERTENSION; Start 12/15/16 at 18:00 MIKE VEGA MD Dec 15, 2016 18:42
[2016-12-15] MEDS: NIFEdipine (XL) 30 MG TAB PO SCH (21:31)
[2016-12-16 01:57] VITALS: BP 138/79; RESP 18
[2016-12-16] MEDS: HYDROmorphONE 1 MG/ML SYG IV PRN ×6 (03:07→21:12)
[2016-12-16] MEDS: DIPHENHYDRAMINE 50 MG INJ IV PRN ×3 (04:10→17:43)
[2016-12-16] MEDS ORDERED: VITAMIN A & D 5 GM OINT PACKET TOP ONE (04:14)
[2016-12-16 06:41] LABS: BASOPHILS % 0.2 % (0.0-2.0); EOSINOPHILS # 0.4 10^3/ul (0.0-0.5); EOSINOPHILS % 7.1 % (0.0-7.0); HEMATOCRIT 24.5 % (37.0-47.0); HEMOGLOBIN 7.5 g/dl (12.0-16.0); LYMPHOCYTES # 1.2 10^3/ul (0.8-2.9); LYMPHOCYTES % 22.9 % (15.0-51.0); MEAN CORPUSCULAR HEMOGLOBIN 28.7 pg (29.0-33.0); MEAN CORPUSCULAR HGB CONC 30.6 g/dl (32.0-37.0); MEAN CORPUSCULAR VOLUME 93.9 fl (82.0-101.0); MEAN PLATELET VOLUME 11.5 fl (7.4-10.4); MONOCYTE # 0.6 10^3/ul (0.3-0.9); MONOCYTES % 10.9 % (0.0-11.0); NEUTROPHIL # 3.1 10^3/ul (1.6-7.5); NEUTROPHILS % 58.5 % (39.0-77.0); PLATELET COUNT 184 10^3/UL (140-415); RED BLOOD COUNT 2.61 10^6/ul (4.20-5.40); WHITE BLOOD COUNT 5.2 10^3/ul (4.8-10.8)
[2016-12-16 07:10] LABS: CALCIUM 8.8 mg/dl (8.4-10.2); CREATININE 9.2 mg/dl (0.44-1.00); POTASSIUM 4.5 mmol/L (3.5-5.1)
[2016-12-16 08:00] VITALS: BP 157/93; PULSE 75; RESP 18
[2016-12-16] MEDS: SEVELAMER 800 MG TAB PO SCH ×3 (08:59→17:43)
[2016-12-16] MEDS: TOPIRAMATE SPRINKLE 25 MG CAP PO SCH ×2 (09:00→21:10)
[2016-12-16] MEDS: GABAPENTIN 100 MG CAP PO SCH ×2 (09:00→21:09)
[2016-12-16] MEDS: HEPARIN 5,000 UNIT/0.5 ML VIAL SC SCH ×2 (09:01→22:19)
[2016-12-16] MEDS: FUROSEMIDE 20 MG TAB PO SCH (09:01)
[2016-12-16] MEDS: LABETALOL 100 MG TAB PO SCH ×3 (09:02→21:11)
[2016-12-16] MEDS: MULTIVIT/CA CARB/B CMPLX/FA TAB PO SCH (09:02)
[2016-12-16] MEDS: NIFEdipine (XL) 60 MG TAB PO SCH (09:02)
[2016-12-16] MEDS: ASPIRIN 81 MG TAB PO SCH (09:02)
[2016-12-16] MEDS: morphine (ER) 15 MG TAB PO SCH ×2 (09:02→21:12)
[2016-12-16] MEDS: FOLIC ACID 1 MG TAB PO SCH (09:03)
--- NOTE | 2016-12-16 10:04 | PN ---
Date/Time of Note Date/Time of Note DATE: 12/16/16 TIME: 10:01 Assessment/Plan VTE Prophylaxis VTE Prophylaxis Intervention: SCD's Lines/Catheters IV Catheter Type (from Nrsg): Mid Line Assessment/Plan Chief Complaint/Hosp Course S- mod pain; no dyspnea. Edema L>R. No bm *1wk. O- vss PE No pallor adenopathy Regular no murmur rub gallop Clear Bowel sounds positive nontender nondistended no large E Edema left greater than right Assessment and plan 1. Sepsis; catheter associated. Stable temporary catheter removal. Antibiotics. 2. ESRD; temporary catheter until sepsis has cleared. AV fistula. 3. Chronic hypertension 4. Hypertensive nephrosclerosis 5. Anemia 6. Central vein occlusion? 7. Tobacco abuse counseling 8. Failure to thrive; SNF? 9. History of IVDA 910. Constipation Problems: Exam/Review of Systems Vital Signs Vitals Vital Signs Date Time Temp Pulse Resp B/P Pulse Ox O2 Delivery O2 Flow Rate FiO2 12/16/16 01:57 98.4 77 18 138/79 100 Intake and Output 12/15/16 12/15/16 12/16/16 15:00 23:00 07:00 Intake Total 400 ml 2150 ml 720 ml Output Total 2400 ml 600 ml 350 ml Balance -2000 ml 1550 ml 370 ml Results Result Diagram: 12/16/16 0548 12/16/16 0548 Results 24 hrs Laboratory Tests Test 12/16/16 05:48 White Blood Count 5.2 Red Blood Count 2.61 L Hemoglobin 7.5 L Hematocrit 24.5 L Mean Corpuscular Volume 93.9 Mean Corpuscular Hemoglobin 28.7 L Mean Corpuscular Hemoglobin Concent 30.6 L Red Cell Distribution Width 17.0 H Platelet Count 184 Mean Platelet Volume 11.5 H Neutrophils % 58.5 Lymphocytes % 22.9 Monocytes % 10.9 Eosinophils % 7.1 H Basophils % 0.2 Nucleated Red Blood Cells % 0.0 Neutrophils # 3.1 Lymphocytes # 1.2 Monocytes # 0.6 Eosinophils # 0.4 Basophils # 0.0 Nucleated Red Blood Cells # 0.0 Sodium Level 141 Potassium Level 4.5 Chloride Level 102 Carbon Dioxide Level 25 Anion Gap 19 H Blood Urea Nitrogen 56 H Creatinine 9.20 H Glucose Level 97 Calcium Level 8.8 Medications Medications Current Medications Acetaminophen (Tylenol Tab) 650 mg Q6H PRN PO PAIN LEVEL 1-3 OR FEVER; Start 12/07/16 at 11:00 Docusate Sodium (Colace) 100 mg Q12H PRN PO CONSTIPATION Last administered on 12/11/16 14:42; Admin Dose 100 MG; Start 12/07/16 at 11:00 Magnesium Hydroxide (Milk Of Mag) 30 ml DAILY PRN PO CONSTIPATION; Start at 11:00 Bisacodyl (Dulcolax) 5 mg DAILY PRN PO CONSTIPATION Last administered on 21:26; Admin Dose 5 MG; Start 12/07/16 at 11:00 Aspirin (Aspirin) 81 mg DAILY PO Last administered on 12/16/16 09:02; Admin Dose 81 MG; Start 12/08/16 at 09:00 Furosemide (Lasix) 20 mg DAILY PO Last administered on 12/16/16 09:01; Admin Dose 20 MG; Start 12/08/16 at 09:00 Nifedipine (Procardia Xl) 60 mg DAILY PO Last administered on 12/16/16 09:02 ; Admin Dose 60 MG; Start 12/08/16 at 09:00 Topiramate (Topamax Sprinkle) 25 mg BID PO Last administered on 12/16/16 09: 00; Admin Dose 25 MG; Start 12/07/16 at 21:00 Multivit/Ca Carb/ B Cmplx/FA/Prenat (Sommer-Samantha) 1 tab DAILY PO Last administered on 12/16/16 09:02; Admin Dose 1 TAB; Start 12/09/16 at 09:00 Folic Acid (Folic Acid) 1 mg DAILY PO Last administered on 12/16/16 09:03; Admin Dose 1 MG; Start 12/09/16 at 09:00 Epoetin Zacarias (Epogen (Esrd)) 4,000 units TuThSa@17 SC Last administered on 12/15 13:35; Admin Dose 4,000 UNITS; Start 12/10/16 at 17:00 Diphenhydramine HCl (Benadryl) 25 mg Q6H PRN IV for itching Last administered on 12/16/16 04:10; Admin Dose 25 MG; Start 12/10/16 at 12:00 Clonidine (Catapres) 0.2 mg TID PO Last administered on 12/16/16 09:00; Admin Dose 0.2 MG; Start 12/11/16 at 21:00 Hydromorphone HCl (Dilaudid) 1 mg Q3H PRN IV PAIN Last administered on 06:17; Admin Dose 1 MG; Start 12/12/16 at 23:45 Morphine Sulfate (Ms Contin (Er)) 15 mg BID PO Last administered on 12/16/16 09:02; Admin Dose 15 MG; Start 12/13/16 at 09:00 Gabapentin (Neurontin) 200 mg BID PO Last administered on 12/16/16 09:00; Admin Dose 200 MG; Start 12/13/16 at 09:00 Heparin Sodium (Porcine) (Heparin (5000 Units/0.5 ml)) 5,000 unit BID SC Last administered on 12/16/16 09:01; Admin Dose 5,000 UNIT; Start 12/13/16 at 13:00 Labetalol HCl (Normodyne) 100 mg TID PO Last administered on 12/16/16 09:02; Admin Dose 100 MG; Start 12/14/16 at 09:00 Nifedipine (Procardia Xl) 30 mg HS PO Last administered on 12/15/16 21:31; Admin Dose 30 MG; Start 12/15/16 at 21:00 Hydralazine HCl (Apresoline) 10 mg Q4H PRN IV HYPERTENSION; Start 12/15/16 at 18:00 KIKO COLE MD Dec 16, 2016 10:04
[2016-12-16] MEDS: BISACODYL (EC) 5 MG TAB PO SCH (11:06)
[2016-12-16] MEDS: LACTULOSE 30ML CUP PO SCH ×2 (11:07→21:10)
--- NOTE | 2016-12-16 12:22 | CONS ---
Date/Time of Note Date/Time of Note DATE: 12/16/16 TIME: 12:18 Assessment/Plan Assessment/Plan Chief Complaint/Hosp Course 1. End-stage renal disease. 2. SIRS with leukocytosis, resolved. 3. LOWER EX EDEMA, better 4. Hypertension, controlled. 5. PERMACATH RELATED INFECTION WITH BACTEREMIA. 6. Anemia. 7. History of [place] palsy. Problems: Additional Assessment/Plan 1. continue HD Consultation Date/Type/Reason Admit Date/Time Dec 07, 2016 at 10:40 Initial Consult Date 12/07/2016 Type of Consultation: nephrology Reason for Consultation Dr Knox Referring Provider: JULISSA NI MD Exam/Review of Systems Vital Signs Vitals Vital Signs Date Time Temp Pulse Resp B/P Pulse Ox O2 Delivery O2 Flow Rate FiO2 12/16/16 01:57 98.4 77 18 138/79 100 Intake and Output 12/15/16 12/15/16 12/16/16 15:00 23:00 07:00 Intake Total 400 ml 2150 ml 720 ml Output Total 2400 ml 600 ml 350 ml Balance -2000 ml 1550 ml 370 ml Exam Constitutional: alert, oriented Neck: supple Respiratory: diminished breath sounds Cardiovascular: regular rate and rhythm Results Result Diagram: 12/16/16 0548 12/16/16 0548 Results 24 hrs Laboratory Tests Test 12/16/16 05:48 White Blood Count 5.2 Red Blood Count 2.61 L Hemoglobin 7.5 L Hematocrit 24.5 L Mean Corpuscular Volume 93.9 Mean Corpuscular Hemoglobin 28.7 L Mean Corpuscular Hemoglobin Concent 30.6 L Red Cell Distribution Width 17.0 H Platelet Count 184 Mean Platelet Volume 11.5 H Neutrophils % 58.5 Lymphocytes % 22.9 Monocytes % 10.9 Eosinophils % 7.1 H Basophils % 0.2 Nucleated Red Blood Cells % 0.0 Neutrophils # 3.1 Lymphocytes # 1.2 Monocytes # 0.6 Eosinophils # 0.4 Basophils # 0.0 Nucleated Red Blood Cells # 0.0 Sodium Level 141 Potassium Level 4.5 Chloride Level 102 Carbon Dioxide Level 25 Anion Gap 19 H Blood Urea Nitrogen 56 H Creatinine 9.20 H Glucose Level 97 Calcium Level 8.8 Medications Medications Current Medications Acetaminophen (Tylenol Tab) 650 mg Q6H PRN PO PAIN LEVEL 1-3 OR FEVER; Start 12/07/16 at 11:00 Docusate Sodium (Colace) 100 mg Q12H PRN PO CONSTIPATION Last administered on 12/11/16 14:42; Admin Dose 100 MG; Start 12/07/16 at 11:00 Magnesium Hydroxide (Milk Of Mag) 30 ml DAILY PRN PO CONSTIPATION; Start at 11:00 Bisacodyl (Dulcolax) 5 mg DAILY PRN PO CONSTIPATION Last administered on 21:26; Admin Dose 5 MG; Start 12/07/16 at 11:00 Aspirin (Aspirin) 81 mg DAILY PO Last administered on 12/16/16 09:02; Admin Dose 81 MG; Start 12/08/16 at 09:00 Furosemide (Lasix) 20 mg DAILY PO Last administered on 12/16/16 09:01; Admin Dose 20 MG; Start 12/08/16 at 09:00 Nifedipine (Procardia Xl) 60 mg DAILY PO Last administered on 12/16/16 09:02 ; Admin Dose 60 MG; Start 12/08/16 at 09:00 Topiramate (Topamax Sprinkle) 25 mg BID PO Last administered on 12/16/16 09: 00; Admin Dose 25 MG; Start 12/07/16 at 21:00 Multivit/Ca Carb/ B Cmplx/FA/Prenat (Sommer-Samantha) 1 tab DAILY PO Last administered on 12/16/16 09:02; Admin Dose 1 TAB; Start 12/09/16 at 09:00 Folic Acid (Folic Acid) 1 mg DAILY PO Last administered on 12/16/16 09:03; Admin Dose 1 MG; Start 12/09/16 at 09:00 Epoetin Zacarias (Epogen (Esrd)) 4,000 units TuThSa@17 SC Last administered on 12/15 13:35; Admin Dose 4,000 UNITS; Start 12/10/16 at 17:00 Diphenhydramine HCl (Benadryl) 25 mg Q6H PRN IV for itching Last administered on 12/16/16 10:55; Admin Dose 25 MG; Start 12/10/16 at 12:00 Clonidine (Catapres) 0.2 mg TID PO Last administered on 12/16/16 09:00; Admin Dose 0.2 MG; Start 12/11/16 at 21:00 Hydromorphone HCl (Dilaudid) 1 mg Q3H PRN IV PAIN Last administered on 11:07; Admin Dose 1 MG; Start 12/12/16 at 23:45 Morphine Sulfate (Ms Contin (Er)) 15 mg BID PO Last administered on 12/16/16 09:02; Admin Dose 15 MG; Start 12/13/16 at 09:00 Gabapentin (Neurontin) 200 mg BID PO Last administered on 12/16/16 09:00; Admin Dose 200 MG; Start 12/13/16 at 09:00 Heparin Sodium (Porcine) (Heparin (5000 Units/0.5 ml)) 5,000 unit BID SC Last administered on 12/16/16 09:01; Admin Dose 5,000 UNIT; Start 12/13/16 at 13:00 Labetalol HCl (Normodyne) 100 mg TID PO Last administered on 12/16/16 09:02; Admin Dose 100 MG; Start 12/14/16 at 09:00 Nifedipine (Procardia Xl) 30 mg HS PO Last administered on 12/15/16 21:31; Admin Dose 30 MG; Start 12/15/16 at 21:00 Hydralazine HCl (Apresoline) 10 mg Q4H PRN IV HYPERTENSION; Start 12/15/16 at 18:00 Lactulose (Enulose) 30 gm BID PO Last administered on 12/16/16 11:07; Admin Dose 30 GM; Start 12/16/16 at 10:30; Stop 12/17/16 at 23:00 Bisacodyl (Dulcolax) 10 mg DAILY PO Last administered on 12/16/16 11:06; Admin Dose 10 MG; Start 12/16/16 at 10:30; Stop 12/18/16 at 23:00 MANI PRECIADO Dec 16, 2016 12:22
--- NOTE | 2016-12-16 12:48 | CONS ---
Date/Time of Note Date/Time of Note DATE: 12/16/16 TIME: 12:46 Assessment/Plan Assessment/Plan Additional Assessment/Plan 1. Preoperative evaluation prior to creation of AV fistula.-negative trop cx3/ NL EF by echo. No sig valve abnl. OK to proceed to OR at moderate risk without further noninvasive evaluation - vascular team follows 2. Chest pain, atypical at this time, normal ejection fraction on echo - no CP now. 3. Hypertension - better controlled now. 4. End-stage renal disease on hemodialysis - per renal team. 5. History of migraine headaches. 6. History of multiple failed chest wall catheters likely cause the patient's intermittent chest pains.-Negative trop x3 7. Edema of [id number]-[place] doppler neg for DVT Consultation Date/Type/Reason Admit Date/Time Dec 07, 2016 at 10:40 Type of Consultation: nephrology Referring Provider: JULISSA NI MD 24 HR Interval Summary Free Text/Dictation No acute events - BP stable - no CP noted. ROS: No fever, no chills, no nausea, no vomiting, no diarrhea/constipation No recent weight changes No chest pain, no PND, no orthopnea No dizziness, blurred vision No thirst, no heat or cold intolerance (better now) Exam/Review of Systems Vital Signs Vitals Vital Signs Date Time Temp Pulse Resp B/P Pulse Ox O2 Delivery O2 Flow Rate FiO2 12/16/16 01:57 98.4 77 18 138/79 100 Intake and Output 12/15/16 12/15/16 12/16/16 15:00 23:00 07:00 Intake Total 400 ml 2150 ml 720 ml Output Total 2400 ml 600 ml 350 ml Balance -2000 ml 1550 ml 370 ml Exam General: WN/WD/NAD, AOx 3 HEENT: Unicetric/atraumatic/EOMI (follow commands) NECK: JVD elevated, no thyromegaly Lymph: no lymphadenopathy HEART: regular with no S3, II/ systolic murmur at apex LUNGS: Coarse sounds ABD: soft, NT, ND, +BS : Intact Neuro: non focal SKIN: chronic changes EXT: trace edema Results Result Diagram: 12/16/1648 12/16/16 0548 Results 24 hrs Laboratory Tests Test 12/16/16 05:48 White Blood Count 5.2 Red Blood Count 2.61 L Hemoglobin 7.5 L Hematocrit 24.5 L Mean Corpuscular Volume 93.9 Mean Corpuscular Hemoglobin 28.7 L Mean Corpuscular Hemoglobin Concent 30.6 L Red Cell Distribution Width 17.0 H Platelet Count 184 Mean Platelet Volume 11.5 H Neutrophils % 58.5 Lymphocytes % 22.9 Monocytes % 10.9 Eosinophils % 7.1 H Basophils % 0.2 Nucleated Red Blood Cells % 0.0 Neutrophils # 3.1 Lymphocytes # 1.2 Monocytes # 0.6 Eosinophils # 0.4 Basophils # 0.0 Nucleated Red Blood Cells # 0.0 Sodium Level 141 Potassium Level 4.5 Chloride Level 102 Carbon Dioxide Level 25 Anion Gap 19 H Blood Urea Nitrogen 56 H Creatinine 9.20 H Glucose Level 97 Calcium Level 8.8 Medications Medications Current Medications Acetaminophen (Tylenol Tab) 650 mg Q6H PRN PO PAIN LEVEL 1-3 OR FEVER; Start 12/07/16 at 11:00 Docusate Sodium (Colace) 100 mg Q12H PRN PO CONSTIPATION Last administered on 12/11/16 14:42; Admin Dose 100 MG; Start 12/07/16 at 11:00 Magnesium Hydroxide (Milk Of Mag) 30 ml DAILY PRN PO CONSTIPATION; Start at 11:00 Bisacodyl (Dulcolax) 5 mg DAILY PRN PO CONSTIPATION Last administered on 21:26; Admin Dose 5 MG; Start 12/07/16 at 11:00 Aspirin (Aspirin) 81 mg DAILY PO Last administered on 12/16/16 09:02; Admin Dose 81 MG; Start 12/08/16 at 09:00 Furosemide (Lasix) 20 mg DAILY PO Last administered on 12/16/16 09:01; Admin Dose 20 MG; Start 12/08/16 at 09:00 Nifedipine (Procardia Xl) 60 mg DAILY PO Last administered on 12/16/16 09:02 ; Admin Dose 60 MG; Start 12/08/16 at 09:00 Topiramate (Topamax Sprinkle) 25 mg BID PO Last administered on 12/16/16 09: 00; Admin Dose 25 MG; Start 12/07/16 at 21:00 Multivit/Ca Carb/ B Cmplx/FA/Prenat (Sommer-Samantha) 1 tab DAILY PO Last administered on 12/16/16 09:02; Admin Dose 1 TAB; Start 12/09/16 at 09:00 Folic Acid (Folic Acid) 1 mg DAILY PO Last administered on 12/16/16 09:03; Admin Dose 1 MG; Start 12/09/16 at 09:00 Epoetin Zacarias (Epogen (Esrd)) 4,000 units TuThSa@17 SC Last administered on 12/15 13:35; Admin Dose 4,000 UNITS; Start 12/10/16 at 17:00 Diphenhydramine HCl (Benadryl) 25 mg Q6H PRN IV for itching Last administered on 12/16/16 10:55; Admin Dose 25 MG; Start 12/10/16 at 12:00 Clonidine (Catapres) 0.2 mg TID PO Last administered on 12/16/16 09:00; Admin Dose 0.2 MG; Start 12/11/16 at 21:00 Hydromorphone HCl (Dilaudid) 1 mg Q3H PRN IV PAIN Last administered on 11:07; Admin Dose 1 MG; Start 12/12/16 at 23:45 Morphine Sulfate (Ms Contin (Er)) 15 mg BID PO Last administered on 12/16/16 09:02; Admin Dose 15 MG; Start 12/13/16 at 09:00 Gabapentin (Neurontin) 200 mg BID PO Last administered on 12/16/16 09:00; Admin Dose 200 MG; Start 12/13/16 at 09:00 Heparin Sodium (Porcine) (Heparin (5000 Units/0.5 ml)) 5,000 unit BID SC Last administered on 12/16/16 09:01; Admin Dose 5,000 UNIT; Start 12/13/16 at 13:00 Labetalol HCl (Normodyne) 100 mg TID PO Last administered on 12/16/16 09:02; Admin Dose 100 MG; Start 12/14/16 at 09:00 Nifedipine (Procardia Xl) 30 mg HS PO Last administered on 12/15/16 21:31; Admin Dose 30 MG; Start 12/15/16 at 21:00 Hydralazine HCl (Apresoline) 10 mg Q4H PRN IV HYPERTENSION; Start 12/15/16 at 18:00 Lactulose (Enulose) 30 gm BID PO Last administered on 12/16/16 11:07; Admin Dose 30 GM; Start 12/16/16 at 10:30; Stop 12/17/16 at 23:00 Bisacodyl (Dulcolax) 10 mg DAILY PO Last administered on 12/16/16 11:06; Admin Dose 10 MG; Start 12/16/16 at 10:30; Stop 12/18/16 at 23:00 CARINA RITTER MD Dec 16, 2016 12:48
--- NOTE | 2016-12-16 12:54 | CONS ---
Date/Time of Note Date/Time of Note DATE: 12/16/16 TIME: 12:52 Assessment/Plan Assessment/Plan Chief Complaint/Hosp Course SUBJECTIVE: No events overnight. The patient is alert, looks comfortable, no fevers. INDWELLINGS: R femoral Aris. MICROBIOLOGY: Blood cultures and tip culture growing oxacillin-sensitive Staphylococcus aureus. ANTIMICROBIALS: Ancef. PHYSICAL EXAMINATION: GENERAL: This is a well-developed, obese, middle-aged -[place] woman who is awake, in no distress. HEENT: Head atraumatic, normocephalic. Sclerae anicteric. Buccal mucosa dry. NECK: Supple. CHEST: Rise is symmetrical. Breath sounds diminished to bases. HEART: S1, S2. ABDOMEN: Soft. Bowel tones present. EXTREMITIES: Without cyanosis. ASSESSMENT: 1. Line sepsis with oxacillin sensitive Staphylococcus aureus bacteremia. 2. End-stage renal disease. 3. Hypertension. 4. History of noncompliance and possible substance use. PLAN: The patient remains stable. Repeat bld cx negative, continue abx, pending BLE venograms. DW staff Problems: Consultation Date/Type/Reason Admit Date/Time Dec 07, 2016 at 10:40 Type of Consultation: ID Referring Provider: JULISSA NI MD Exam/Review of Systems Vital Signs Vitals Vital Signs Date Time Temp Pulse Resp B/P Pulse Ox O2 Delivery O2 Flow Rate FiO2 12/16/16 01:57 98.4 77 18 138/79 100 Intake and Output 12/15/16 12/15/16 12/16/16 14:59 22:59 06:59 Intake Total 400 ml 2150 ml 720 ml Output Total 2400 ml 600 ml 350 ml Balance -2000 ml 1550 ml 370 ml Results Result Diagram: 12/16/16 0548 12/16/16 0548 Results 24 hrs Laboratory Tests Test 12/16/16 05:48 White Blood Count 5.2 Red Blood Count 2.61 L Hemoglobin 7.5 L Hematocrit 24.5 L Mean Corpuscular Volume 93.9 Mean Corpuscular Hemoglobin 28.7 L Mean Corpuscular Hemoglobin Concent 30.6 L Red Cell Distribution Width 17.0 H Platelet Count 184 Mean Platelet Volume 11.5 H Neutrophils % 58.5 Lymphocytes % 22.9 Monocytes % 10.9 Eosinophils % 7.1 H Basophils % 0.2 Nucleated Red Blood Cells % 0.0 Neutrophils # 3.1 Lymphocytes # 1.2 Monocytes # 0.6 Eosinophils # 0.4 Basophils # 0.0 Nucleated Red Blood Cells # 0.0 Sodium Level 141 Potassium Level 4.5 Chloride Level 102 Carbon Dioxide Level 25 Anion Gap 19 H Blood Urea Nitrogen 56 H Creatinine 9.20 H Glucose Level 97 Calcium Level 8.8 Medications Medications Current Medications Acetaminophen (Tylenol Tab) 650 mg Q6H PRN PO PAIN LEVEL 1-3 OR FEVER; Start 12/07/16 at 11:00 Docusate Sodium (Colace) 100 mg Q12H PRN PO CONSTIPATION Last administered on 12/11/16 14:42; Admin Dose 100 MG; Start 12/07/16 at 11:00 Magnesium Hydroxide (Milk Of Mag) 30 ml DAILY PRN PO CONSTIPATION; Start at 11:00 Bisacodyl (Dulcolax) 5 mg DAILY PRN PO CONSTIPATION Last administered on 21:26; Admin Dose 5 MG; Start 12/07/16 at 11:00 Aspirin (Aspirin) 81 mg DAILY PO Last administered on 12/16/16 09:02; Admin Dose 81 MG; Start 12/08/16 at 09:00 Furosemide (Lasix) 20 mg DAILY PO Last administered on 12/16/16 09:01; Admin Dose 20 MG; Start 12/08/16 at 09:00 Nifedipine (Procardia Xl) 60 mg DAILY PO Last administered on 12/16/16 09:02 ; Admin Dose 60 MG; Start 12/08/16 at 09:00 Topiramate (Topamax Sprinkle) 25 mg BID PO Last administered on 12/16/16 09: 00; Admin Dose 25 MG; Start 12/07/16 at 21:00 Multivit/Ca Carb/ B Cmplx/FA/Prenat (Sommer-Samantha) 1 tab DAILY PO Last administered on 12/16/16 09:02; Admin Dose 1 TAB; Start 12/09/16 at 09:00 Folic Acid (Folic Acid) 1 mg DAILY PO Last administered on 12/16/16 09:03; Admin Dose 1 MG; Start 12/09/16 at 09:00 Epoetin Zacarias (Epogen (Esrd)) 4,000 units TuThSa@17 SC Last administered on 12/15 13:35; Admin Dose 4,000 UNITS; Start 12/10/16 at 17:00 Diphenhydramine HCl (Benadryl) 25 mg Q6H PRN IV for itching Last administered on 12/16/16 10:55; Admin Dose 25 MG; Start 12/10/16 at 12:00 Clonidine (Catapres) 0.2 mg TID PO Last administered on 12/16/16 12:51; Admin Dose 0.2 MG; Start 12/11/16 at 21:00 Hydromorphone HCl (Dilaudid) 1 mg Q3H PRN IV PAIN Last administered on 11:07; Admin Dose 1 MG; Start 12/12/16 at 23:45 Morphine Sulfate (Ms Contin (Er)) 15 mg BID PO Last administered on 12/16/16 09:02; Admin Dose 15 MG; Start 12/13/16 at 09:00 Gabapentin (Neurontin) 200 mg BID PO Last administered on 12/16/16 09:00; Admin Dose 200 MG; Start 12/13/16 at 09:00 Heparin Sodium (Porcine) (Heparin (5000 Units/0.5 ml)) 5,000 unit BID SC Last administered on 12/16/16 09:01; Admin Dose 5,000 UNIT; Start 12/13/16 at 13:00 Labetalol HCl (Normodyne) 100 mg TID PO Last administered on 12/16/16 12:50; Admin Dose 100 MG; Start 12/14/16 at 09:00 Nifedipine (Procardia Xl) 30 mg HS PO Last administered on 12/15/16 21:31; Admin Dose 30 MG; Start 12/15/16 at 21:00 Hydralazine HCl (Apresoline) 10 mg Q4H PRN IV HYPERTENSION; Start 12/15/16 at 18:00 Lactulose (Enulose) 30 gm BID PO Last administered on 12/16/16 11:07; Admin Dose 30 GM; Start 12/16/16 at 10:30; Stop 12/17/16 at 23:00 Bisacodyl (Dulcolax) 10 mg DAILY PO Last administered on 12/16/16 11:06; Admin Dose 10 MG; Start 12/16/16 at 10:30; Stop 12/18/16 at 23:00 BILL HOFFMAN NP Dec 16, 2016 12:54
[2016-12-16 14:00] VITALS: BP 163/93; RESP 20
[2016-12-16 19:46] VITALS: BP 139/84; RESP 20
[2016-12-16] MEDS: NIFEdipine (XL) 30 MG TAB PO SCH (21:11)
[2016-12-17] VITALS (13 sets, daily range): BP systolic 131–164; BP diastolic 59–90; PULSE 74–111; RESP 18–20
[2016-12-17] MEDS: HYDROmorphONE 1 MG/ML SYG IV PRN ×7 (00:36→21:04)
[2016-12-17] MEDS: DIPHENHYDRAMINE 50 MG INJ IV PRN ×4 (00:36→17:55)
[2016-12-17 05:55] LABS: BASOPHILS % 0.4 % (0.0-2.0); EOSINOPHILS # 0.3 10^3/ul (0.0-0.5); HEMATOCRIT 24.3 % (37.0-47.0); HEMOGLOBIN 7.3 g/dl (12.0-16.0); LYMPHOCYTES # 1.2 10^3/ul (0.8-2.9); LYMPHOCYTES % 22.4 % (15.0-51.0); MEAN CORPUSCULAR HEMOGLOBIN 28.1 pg (29.0-33.0); MEAN CORPUSCULAR VOLUME 93.5 fl (82.0-101.0); MEAN PLATELET VOLUME 10.8 fl (7.4-10.4); MONOCYTE # 0.5 10^3/ul (0.3-0.9); MONOCYTES % 9.5 % (0.0-11.0); NEUTROPHIL # 3.1 10^3/ul (1.6-7.5); NEUTROPHILS % 61.1 % (39.0-77.0); PLATELET COUNT 188 10^3/UL (140-415); WHITE BLOOD COUNT 5.1 10^3/ul (4.8-10.8)
[2016-12-17 06:34] LABS: CALCIUM 8.7 mg/dl (8.4-10.2); CREATININE 10.65 mg/dl (0.44-1.00)
[2016-12-17] MEDS: GABAPENTIN 100 MG CAP PO SCH ×2 (08:14→20:14)
[2016-12-17] MEDS: ASPIRIN 81 MG TAB PO SCH (08:15)
[2016-12-17] MEDS: FOLIC ACID 1 MG TAB PO SCH (08:15)
[2016-12-17] MEDS: TOPIRAMATE SPRINKLE 25 MG CAP PO SCH ×2 (08:15→20:14)
[2016-12-17] MEDS: SEVELAMER 800 MG TAB PO SCH ×3 (08:15→18:17)
[2016-12-17] MEDS: MULTIVIT/CA CARB/B CMPLX/FA TAB PO SCH (08:17)
[2016-12-17] MEDS: LACTULOSE 30ML CUP PO SCH ×2 (08:18→20:14)
[2016-12-17] MEDS: FUROSEMIDE 20 MG TAB PO SCH (08:18)
[2016-12-17] MEDS: BISACODYL (EC) 5 MG TAB PO SCH (08:18)
[2016-12-17] MEDS: NIFEdipine (XL) 60 MG TAB PO SCH ×2 (09:00→18:17)
[2016-12-17] MEDS: LABETALOL 100 MG TAB PO SCH ×3 (09:00→20:15)
[2016-12-17] MEDS: morphine (ER) 15 MG TAB PO SCH ×2 (09:20→20:14)
[2016-12-17] MEDS: HEPARIN 5,000 UNIT/0.5 ML VIAL SC SCH ×2 (09:27→20:22)
--- NOTE | 2016-12-17 13:08 | CONS ---
Date/Time of Note Date/Time of Note DATE: 12/17/16 TIME: 13:07 Assessment/Plan Assessment/Plan Chief Complaint/Hosp Course 1. End-stage renal disease. 2. SIRS with leukocytosis, resolved. 3. LOWER EX EDEMA, better 4. Hypertension, controlled. 5. PERMACATH RELATED INFECTION WITH BACTEREMIA. 6. Anemia. 7. History of [place] palsy. Problems: Additional Assessment/Plan 1. continue HD 2.Left Aris cath has limited flow 250 ml/h Consultation Date/Type/Reason Admit Date/Time Dec 07, 2016 at 10:40 Initial Consult Date 12/07/2016 Type of Consultation: nephrology Reason for Consultation Dr Knox Referring Provider: JULISSA NI MD Exam/Review of Systems Vital Signs Vitals Vital Signs Date Time Temp Pulse Resp B/P Pulse Ox O2 Delivery O2 Flow Rate FiO2 12/17/16 10:30 74 18 12/17/16 08:15 97.6 144/87 100 12/16/16 08:00 Room Air Intake and Output 12/16/16 12/16/16 12/17/16 15:00 23:00 07:00 Intake Total 1320 ml 700 ml Output Total 400 ml Balance 920 ml 700 ml Exam Constitutional: alert, oriented Cardiovascular: regular rate and rhythm Gastrointestinal: soft Results Result Diagram: 12/17/1617 12/17/16 0517 Results 24 hrs Laboratory Tests Test 12/17/16 05:15 12/17/16 05:17 Serum HCG, Qualitative NEGATIVE White Blood Count 5.1 Red Blood Count 2.60 L Hemoglobin 7.3 L Hematocrit 24.3 L Mean Corpuscular Volume 93.5 Mean Corpuscular Hemoglobin 28.1 L Mean Corpuscular Hemoglobin Concent 30.0 L Red Cell Distribution Width 17.0 H Platelet Count 188 Mean Platelet Volume 10.8 H Neutrophils % 61.1 Lymphocytes % 22.4 Monocytes % 9.5 Eosinophils % 6.0 Basophils % 0.4 Nucleated Red Blood Cells % 0.0 Neutrophils # 3.1 Lymphocytes # 1.2 Monocytes # 0.5 Eosinophils # 0.3 Basophils # 0.0 Nucleated Red Blood Cells # 0.0 Sodium Level 141 Potassium Level 5.0 Chloride Level 103 Carbon Dioxide Level 24 Anion Gap 19 H Blood Urea Nitrogen 60 H Creatinine 10.65 H Glucose Level 85 Calcium Level 8.7 Medications Medications Current Medications Acetaminophen (Tylenol Tab) 650 mg Q6H PRN PO PAIN LEVEL 1-3 OR FEVER; Start 12/07/16 at 11:00 Docusate Sodium (Colace) 100 mg Q12H PRN PO CONSTIPATION Last administered on 12/11/16 14:42; Admin Dose 100 MG; Start 12/07/16 at 11:00 Magnesium Hydroxide (Milk Of Mag) 30 ml DAILY PRN PO CONSTIPATION; Start at 11:00 Bisacodyl (Dulcolax) 5 mg DAILY PRN PO CONSTIPATION Last administered on 21:26; Admin Dose 5 MG; Start 12/07/16 at 11:00 Aspirin (Aspirin) 81 mg DAILY PO Last administered on 12/17/16 08:15; Admin Dose 81 MG; Start 12/08/16 at 09:00 Furosemide (Lasix) 20 mg DAILY PO Last administered on 12/17/16 08:18; Admin Dose 20 MG; Start 12/08/16 at 09:00 Nifedipine (Procardia Xl) 60 mg DAILY PO Last administered on 12/16/16 09:02 ; Admin Dose 60 MG; Start 12/08/16 at 09:00 Topiramate (Topamax Sprinkle) 25 mg BID PO Last administered on 12/17/16 08: 15; Admin Dose 25 MG; Start 12/07/16 at 21:00 Multivit/Ca Carb/ B Cmplx/FA/Prenat (Sommer-Samantha) 1 tab DAILY PO Last administered on 12/17/16 08:17; Admin Dose 1 TAB; Start 12/09/16 at 09:00 Folic Acid (Folic Acid) 1 mg DAILY PO Last administered on 12/17/16 08:15; Admin Dose 1 MG; Start 12/09/16 at 09:00 Epoetin Zacarias (Epogen (Esrd)) 4,000 units TuThSa@17 SC Last administered on 12/15 13:35; Admin Dose 4,000 UNITS; Start 12/10/16 at 17:00 Diphenhydramine HCl (Benadryl) 25 mg Q6H PRN IV for itching Last administered on 12/17/16 11:26; Admin Dose 25 MG; Start 12/10/16 at 12:00 Clonidine (Catapres) 0.2 mg TID PO Last administered on 12/16/16 21:11; Admin Dose 0.2 MG; Start 12/11/16 at 21:00 Hydromorphone HCl (Dilaudid) 1 mg Q3H PRN IV PAIN Last administered on 11:29; Admin Dose 1 MG; Start 12/12/16 at 23:45 Morphine Sulfate (Ms Contin (Er)) 15 mg BID PO Last administered on 12/17/16 09:20; Admin Dose 15 MG; Start 12/13/16 at 09:00 Gabapentin (Neurontin) 200 mg BID PO Last administered on 12/17/16 08:14; Admin Dose 200 MG; Start 12/13/16 at 09:00 Heparin Sodium (Porcine) (Heparin (5000 Units/0.5 ml)) 5,000 unit BID SC Last administered on 12/17/16 09:27; Admin Dose 5,000 UNIT; Start 12/13/16 at 13:00 Labetalol HCl (Normodyne) 100 mg TID PO Last administered on 12/16/16 21:11; Admin Dose 100 MG; Start 12/14/16 at 09:00 Nifedipine (Procardia Xl) 30 mg HS PO Last administered on 12/16/16 21:11; Admin Dose 30 MG; Start 12/15/16 at 21:00 Hydralazine HCl (Apresoline) 10 mg Q4H PRN IV HYPERTENSION; Start 12/15/16 at 18:00 Lactulose (Enulose) 30 gm BID PO Last administered on 12/16/16 21:10; Admin Dose 30 GM; Start 12/16/16 at 10:30; Stop 12/17/16 at 23:00 Bisacodyl (Dulcolax) 10 mg DAILY PO Last administered on 12/16/16 11:06; Admin Dose 10 MG; Start 12/16/16 at 10:30; Stop 12/18/16 at 23:00 MANI PRECIADO Dec 17, 2016 13:08
--- NOTE | 2016-12-17 13:33 | CONS ---
Date/Time of Note Date/Time of Note DATE: 12/17/16 TIME: 13:32 Assessment/Plan Assessment/Plan Additional Assessment/Plan 1. Preoperative evaluation prior to creation of AV fistula.-negative trop cx3/ NL EF by echo. No sig valve abnl. OK to proceed to OR at moderate risk without further noninvasive evaluation - vascular team follows Now with limited flow HD cath - vascular to follow. 1. Preoperative evaluation prior to creation of AV fistula.-negative trop cx3/ NL EF by echo. No sig valve abnl. OK to proceed to OR at moderate risk without further noninvasive evaluation - vascular team follows 2. Chest pain, atypical at this time, normal ejection fraction on echo - no CP now. BETTER now. 3. Hypertension - better controlled now. 4. End-stage renal disease on hemodialysis - per renal team. 5. History of migraine headaches. 6. History of multiple failed chest wall catheters likely cause the patient's intermittent chest pains.-Negative trop x3 7. Edema of [id number] doppler neg for DVTow. 2. Chest pain, atypical at this time, normal ejection fraction on echo - no CP now. 3. Hypertension - better controlled now. 4. End-stage renal disease on hemodialysis - per renal team. 5. History of migraine headaches. 6. History of multiple failed chest wall catheters likely cause the patient's intermittent chest pains.-Negative trop x3 7. Edema of [id number] doppler neg for DVT Consultation Date/Type/Reason Admit Date/Time Dec 07, 2016 at 10:40 Type of Consultation: nephrology Referring Provider: JULISSA NI MD 24 HR Interval Summary Free Text/Dictation Now with limited flow HD cath - vascular to follow. ROS: No fever, no chills, no nausea, no vomiting, no diarrhea/constipation No recent weight changes No chest pain, no PND, no orthopnea + SOB chronic No dizziness, blurred vision No thirst, no heat or cold intolerance Exam/Review of Systems Vital Signs Vitals Vital Signs Date Time Temp Pulse Resp B/P Pulse Ox O2 Delivery O2 Flow Rate FiO2 12/17/16 10:30 74 18 12/17/16 08:15 97.6 144/87 100 12/16/16 08:00 Room Air Intake and Output 12/16/16 12/16/16 12/17/16 15:00 23:00 07:00 Intake Total 1320 ml 700 ml Output Total 400 ml Balance 920 ml 700 ml Exam General: WN/WD/NAD, AOx 3 HEENT: Unicetric/atraumatic/EOMI (follows commands) NECK: JVD elevated, no thyromegaly Lymph: no lymphadenopathy HEART: regular with no S3, II/ systolic murmur at apex LUNGS: Coarse sounds ABD: soft, NT, ND, +BS : Intact Neuro: non focal SKIN: chronic changes EXT: trace edema Results Result Diagram: 12/17/1651612/17/16516 Results 24 hrs Laboratory Tests Test 12/17/16 05:15 12/17/16 05:17 Serum HCG, Qualitative NEGATIVE White Blood Count 5.1 Red Blood Count 2.60 L Hemoglobin 7.3 L Hematocrit 24.3 L Mean Corpuscular Volume 93.5 Mean Corpuscular Hemoglobin 28.1 L Mean Corpuscular Hemoglobin Concent 30.0 L Red Cell Distribution Width 17.0 H Platelet Count 188 Mean Platelet Volume 10.8 H Neutrophils % 61.1 Lymphocytes % 22.4 Monocytes % 9.5 Eosinophils % 6.0 Basophils % 0.4 Nucleated Red Blood Cells % 0.0 Neutrophils # 3.1 Lymphocytes # 1.2 Monocytes # 0.5 Eosinophils # 0.3 Basophils # 0.0 Nucleated Red Blood Cells # 0.0 Sodium Level 141 Potassium Level 5.0 Chloride Level 103 Carbon Dioxide Level 24 Anion Gap 19 H Blood Urea Nitrogen 60 H Creatinine 10.65 H Glucose Level 85 Calcium Level 8.7 Medications Medications Current Medications Acetaminophen (Tylenol Tab) 650 mg Q6H PRN PO PAIN LEVEL 1-3 OR FEVER; Start 12/07/16 at 11:00 Docusate Sodium (Colace) 100 mg Q12H PRN PO CONSTIPATION Last administered on 12/11/16 14:42; Admin Dose 100 MG; Start 12/07/16 at 11:00 Magnesium Hydroxide (Milk Of Mag) 30 ml DAILY PRN PO CONSTIPATION; Start at 11:00 Bisacodyl (Dulcolax) 5 mg DAILY PRN PO CONSTIPATION Last administered on 21:26; Admin Dose 5 MG; Start 12/07/16 at 11:00 Aspirin (Aspirin) 81 mg DAILY PO Last administered on 12/17/16 08:15; Admin Dose 81 MG; Start 12/08/16 at 09:00 Furosemide (Lasix) 20 mg DAILY PO Last administered on 12/17/16 08:18; Admin Dose 20 MG; Start 12/08/16 at 09:00 Nifedipine (Procardia Xl) 60 mg DAILY PO Last administered on 12/16/16 09:02 ; Admin Dose 60 MG; Start 12/08/16 at 09:00 Topiramate (Topamax Sprinkle) 25 mg BID PO Last administered on 12/17/16 08: 15; Admin Dose 25 MG; Start 12/07/16 at 21:00 Multivit/Ca Carb/ B Cmplx/FA/Prenat (Sommer-Samantha) 1 tab DAILY PO Last administered on 12/17/16 08:17; Admin Dose 1 TAB; Start 12/09/16 at 09:00 Folic Acid (Folic Acid) 1 mg DAILY PO Last administered on 12/17/16 08:15; Admin Dose 1 MG; Start 12/09/16 at 09:00 Epoetin Zacarias (Epogen (Esrd)) 4,000 units TuThSa@17 SC Last administered on 12/15 13:35; Admin Dose 4,000 UNITS; Start 12/10/16 at 17:00 Diphenhydramine HCl (Benadryl) 25 mg Q6H PRN IV for itching Last administered on 12/17/16 11:26; Admin Dose 25 MG; Start 12/10/16 at 12:00 Clonidine (Catapres) 0.2 mg TID PO Last administered on 12/16/16 21:11; Admin Dose 0.2 MG; Start 12/11/16 at 21:00 Hydromorphone HCl (Dilaudid) 1 mg Q3H PRN IV PAIN Last administered on 11:29; Admin Dose 1 MG; Start 12/12/16 at 23:45 Morphine Sulfate (Ms Contin (Er)) 15 mg BID PO Last administered on 12/17/16 09:20; Admin Dose 15 MG; Start 12/13/16 at 09:00 Gabapentin (Neurontin) 200 mg BID PO Last administered on 12/17/16 08:14; Admin Dose 200 MG; Start 12/13/16 at 09:00 Heparin Sodium (Porcine) (Heparin (5000 Units/0.5 ml)) 5,000 unit BID SC Last administered on 12/17/16 09:27; Admin Dose 5,000 UNIT; Start 12/13/16 at 13:00 Labetalol HCl (Normodyne) 100 mg TID PO Last administered on 12/16/16 21:11; Admin Dose 100 MG; Start 12/14/16 at 09:00 Nifedipine (Procardia Xl) 30 mg HS PO Last administered on 12/16/16 21:11; Admin Dose 30 MG; Start 12/15/16 at 21:00 Hydralazine HCl (Apresoline) 10 mg Q4H PRN IV HYPERTENSION; Start 12/15/16 at 18:00 Lactulose (Enulose) 30 gm BID PO Last administered on 12/16/16 21:10; Admin Dose 30 GM; Start 12/16/16 at 10:30; Stop 12/17/16 at 23:00 Bisacodyl (Dulcolax) 10 mg DAILY PO Last administered on 12/16/16 11:06; Admin Dose 10 MG; Start 12/16/16 at 10:30; Stop 12/18/16 at 23:00 CARINA RITTER MD Dec 17, 2016 13:33
--- NOTE | 2016-12-17 15:22 | PN ---
Date/Time of Note Date/Time of Note DATE: 12/17/16 TIME: 15:21 Assessment/Plan VTE Prophylaxis VTE Prophylaxis Intervention: contraindicated Lines/Catheters IV C[facility] Type [facility]from [facility] Mid Line Assessment/Plan Chief Complaint/Hosp Course 1. Sepsis with underlying gram-positive bacteremia. Most probably from infected left femoral hemodialysis catheter. On antimicrobials as per infectious diseases. Status post replacement of left femoral hemodialysis catheter by vascular surgery. 2. End-stage renal disease on hemodialysis. Being followed by nephrology. 3. Essential hypertension. Continue antihypertensives. 4. Migraine headaches. Continue Topamax. 5. History of King's palsy. 6. Anemia. Probably anemia of chronic kidney disease. Monitor H&H closely. 7. Fluids, electrolytes, and nutrition. Renal diet. 8. DVT prophylaxis. Contraindicated. 9. Plan. The patient needs long-term IV antibiotics. Await further recommendations from consultants. Case discussed with Dr. Mcdonald. Problems: Subjective 24 Hr Interval Summary Free Text/Dictation Complains of left lower extremity pain. Exam/Review of Systems Vital Signs Vitals Vital Signs Date Time Temp Pulse Resp B/P Pulse Ox O2 Delivery O2 Flow Rate FiO2 12/17/16 14:02 98.9 82 20 131/59 96 12/16/16 08:00 Room Air Intake and Output 12/16/16 12/16/16 12/17/16 15:00 23:00 07:00 Intake Total 1320 ml 700 ml Output Total 400 ml Balance 920 ml 700 ml Exam General: Obese 31 year-old female lying in bed in no apparent distress. HEENT: Normocephalic, atraumatic. Eyes: Anicteric sclerae, conjunctivae clear. ENT: Nasal septum midline, oral mucosa moist. Neck supple, no JVD noticed. Respiratory: Bilaterally clear breath sounds. No use of accessory muscles of respiration. No adventitious breath sounds. Cardiovascular: S1, S2 heard. No murmurs or gallops. Abdomen: Soft, nontender, and nondistended. Bowel sounds positive in all 4 quadrants. Genitourinary: Deferred. Extremities: No cyanosis. LLE edematous than the RLE. LLE tender to touch. Peripheral pulses palpable. Neurologic: Cranial nerves II through XII grossly intact. The patient is awake, alert, and oriented. Skin: Normal skin turgor. No skin rashes. Results Result Diagram: 12/17/1651612/17/1617 Results 24 hrs Laboratory Tests Test 12/17/16 05:15 12/17/16 05:17 Serum HCG, Qualitative NEGATIVE White Blood Count 5.1 Red Blood Count 2.60 L Hemoglobin 7.3 L Hematocrit 24.3 L Mean Corpuscular Volume 93.5 Mean Corpuscular Hemoglobin 28.1 L Mean Corpuscular Hemoglobin Concent 30.0 L Red Cell Distribution Width 17.0 H Platelet Count 188 Mean Platelet Volume 10.8 H Neutrophils % 61.1 Lymphocytes % 22.4 Monocytes % 9.5 Eosinophils % 6.0 Basophils % 0.4 Nucleated Red Blood Cells % 0.0 Neutrophils # 3.1 Lymphocytes # 1.2 Monocytes # 0.5 Eosinophils # 0.3 Basophils # 0.0 Nucleated Red Blood Cells # 0.0 Sodium Level 141 Potassium Level 5.0 Chloride Level 103 Carbon Dioxide Level 24 Anion Gap 19 H Blood Urea Nitrogen 60 H Creatinine 10.65 H Glucose Level 85 Calcium Level 8.7 Medications Medications Current Medications Acetaminophen (Tylenol Tab) 650 mg Q6H PRN PO PAIN LEVEL 1-3 OR FEVER; Start 12/07/16 at 11:00 Docusate Sodium (Colace) 100 mg Q12H PRN PO CONSTIPATION Last administered on 12/11/16 14:42; Admin Dose 100 MG; Start 12/07/16 at 11:00 Magnesium Hydroxide (Milk Of Mag) 30 ml DAILY PRN PO CONSTIPATION; Start at 11:00 Bisacodyl (Dulcolax) 5 mg DAILY PRN PO CONSTIPATION Last administered on 21:26; Admin Dose 5 MG; Start 12/07/16 at 11:00 Aspirin (Aspirin) 81 mg DAILY PO Last administered on 12/17/16 08:15; Admin Dose 81 MG; Start 12/08/16 at 09:00 Furosemide (Lasix) 20 mg DAILY PO Last administered on 12/17/16 08:18; Admin Dose 20 MG; Start 12/08/16 at 09:00 Nifedipine (Procardia Xl) 60 mg DAILY PO Last administered on 12/16/16 09:02 ; Admin Dose 60 MG; Start 12/08/16 at 09:00 Topiramate (Topamax Sprinkle) 25 mg BID PO Last administered on 12/17/16 08: 15; Admin Dose 25 MG; Start 12/07/16 at 21:00 Multivit/Ca Carb/ B Cmplx/FA/Prenat (Sommer-Samantha) 1 tab DAILY PO Last administered on 12/17/16 08:17; Admin Dose 1 TAB; Start 12/09/16 at 09:00 Folic Acid (Folic Acid) 1 mg DAILY PO Last administered on 12/17/16 08:15; Admin Dose 1 MG; Start 12/09/16 at 09:00 Epoetin Zacarias (Epogen (Esrd)) 4,000 units TuThSa@17 SC Last administered on 12/15 13:35; Admin Dose 4,000 UNITS; Start 12/10/16 at 17:00 Diphenhydramine HCl (Benadryl) 25 mg Q6H PRN IV for itching Last administered on 12/17/16 11:26; Admin Dose 25 MG; Start 12/10/16 at 12:00 Clonidine (Catapres) 0.2 mg TID PO Last administered on 12/16/16 21:11; Admin Dose 0.2 MG; Start 12/11/16 at 21:00 Hydromorphone HCl (Dilaudid) 1 mg Q3H PRN IV PAIN Last administered on 14:52; Admin Dose 1 MG; Start 12/12/16 at 23:45 Morphine Sulfate (Ms Contin (Er)) 15 mg BID PO Last administered on 12/17/16 09:20; Admin Dose 15 MG; Start 12/13/16 at 09:00 Gabapentin (Neurontin) 200 mg BID PO Last administered on 12/17/16 08:14; Admin Dose 200 MG; Start 12/13/16 at 09:00 Heparin Sodium (Porcine) (Heparin (5000 Units/0.5 ml)) 5,000 unit BID SC Last administered on 12/17/16 09:27; Admin Dose 5,000 UNIT; Start 12/13/16 at 13:00 Labetalol HCl (Normodyne) 100 mg TID PO Last administered on 12/16/16 21:11; Admin Dose 100 MG; Start 12/14/16 at 09:00 Nifedipine (Procardia Xl) 30 mg HS PO Last administered on 12/16/16 21:11; Admin Dose 30 MG; Start 12/15/16 at 21:00 Hydralazine HCl (Apresoline) 10 mg Q4H PRN IV HYPERTENSION; Start 12/15/16 at 18:00 Lactulose (Enulose) 30 gm BID PO Last administered on 12/16/16 21:10; Admin Dose 30 GM; Start 12/16/16 at 10:30; Stop 12/17/16 at 23:00 Bisacodyl (Dulcolax) 10 mg DAILY PO Last administered on 12/16/16 11:06; Admin Dose 10 MG; Start 12/16/16 at 10:30; Stop 12/18/16 at 23:00 PABLO SANCHEZ NP Dec 17, 2016 15:22
--- NOTE | 2016-12-17 17:20 | CONS ---
Date/Time of Note Date/Time of Note DATE: 12/17/16 TIME: 17:19 Consult Date/Type/Reason Admit Date/Time Dec 07, 2016 at 10:40 Type of Consultation: ID Ordering Provider: JULISSA NI MD Objective Vital Signs Date Time Temp Pulse Resp B/P Pulse Ox O2 Delivery O2 Flow Rate FiO2 12/17/16 14:02 98.9 82 20 131/59 96 12/16/16 08:00 Room Air Intake and Output 12/16/16 12/16/16 12/17/16 15:00 23:00 07:00 Intake Total 1320 ml 700 ml Output Total 400 ml Balance 920 ml 700 ml Results/Medications Result Diagram: 12/17/1651612/17/16516 Results 24 hrs Laboratory Tests Test 12/17/16 05:15 12/17/16 05:17 Serum HCG, Qualitative NEGATIVE White Blood Count 5.1 Red Blood Count 2.60 L Hemoglobin 7.3 L Hematocrit 24.3 L Mean Corpuscular Volume 93.5 Mean Corpuscular Hemoglobin 28.1 L Mean Corpuscular Hemoglobin Concent 30.0 L Red Cell Distribution Width 17.0 H Platelet Count 188 Mean Platelet Volume 10.8 H Neutrophils % 61.1 Lymphocytes % 22.4 Monocytes % 9.5 Eosinophils % 6.0 Basophils % 0.4 Nucleated Red Blood Cells % 0.0 Neutrophils # 3.1 Lymphocytes # 1.2 Monocytes # 0.5 Eosinophils # 0.3 Basophils # 0.0 Nucleated Red Blood Cells # 0.0 Sodium Level 141 Potassium Level 5.0 Chloride Level 103 Carbon Dioxide Level 24 Anion Gap 19 H Blood Urea Nitrogen 60 H Creatinine 10.65 H Glucose Level 85 Calcium Level 8.7 Medications Current Medications Acetaminophen (Tylenol Tab) 650 mg Q6H PRN PO PAIN LEVEL 1-3 OR FEVER; Start 12/07/16 at 11:00 Docusate Sodium (Colace) 100 mg Q12H PRN PO CONSTIPATION Last administered on 12/11/16 14:42; Admin Dose 100 MG; Start 12/07/16 at 11:00 Magnesium Hydroxide (Milk Of Mag) 30 ml DAILY PRN PO CONSTIPATION; Start at 11:00 Bisacodyl (Dulcolax) 5 mg DAILY PRN PO CONSTIPATION Last administered on 21:26; Admin Dose 5 MG; Start 12/07/16 at 11:00 Aspirin (Aspirin) 81 mg DAILY PO Last administered on 12/17/16 08:15; Admin Dose 81 MG; Start 12/08/16 at 09:00 Furosemide (Lasix) 20 mg DAILY PO Last administered on 12/17/16 08:18; Admin Dose 20 MG; Start 12/08/16 at 09:00 Nifedipine (Procardia Xl) 60 mg DAILY PO Last administered on 12/16/16 09:02 ; Admin Dose 60 MG; Start 12/08/16 at 09:00 Topiramate (Topamax Sprinkle) 25 mg BID PO Last administered on 12/17/16 08: 15; Admin Dose 25 MG; Start 12/07/16 at 21:00 Multivit/Ca Carb/ B Cmplx/FA/Prenat (Sommer-Samantha) 1 tab DAILY PO Last administered on 12/17/16 08:17; Admin Dose 1 TAB; Start 12/09/16 at 09:00 Folic Acid (Folic Acid) 1 mg DAILY PO Last administered on 12/17/16 08:15; Admin Dose 1 MG; Start 12/09/16 at 09:00 Epoetin Zacairas (Epogen (Esrd)) 4,000 units TuThSa@17 SC Last administered on 12/15 13:35; Admin Dose 4,000 UNITS; Start 12/10/16 at 17:00 Diphenhydramine HCl (Benadryl) 25 mg Q6H PRN IV for itching Last administered on 12/17/16 11:26; Admin Dose 25 MG; Start 12/10/16 at 12:00 Clonidine (Catapres) 0.2 mg TID PO Last administered on 12/16/16 21:11; Admin Dose 0.2 MG; Start 12/11/16 at 21:00 Hydromorphone HCl (Dilaudid) 1 mg Q3H PRN IV PAIN Last administered on 14:52; Admin Dose 1 MG; Start 12/12/16 at 23:45 Morphine Sulfate (Ms Contin (Er)) 15 mg BID PO Last administered on 12/17/16 09:20; Admin Dose 15 MG; Start 12/13/16 at 09:00 Gabapentin (Neurontin) 200 mg BID PO Last administered on 12/17/16 08:14; Admin Dose 200 MG; Start 12/13/16 at 09:00 Heparin Sodium (Porcine) (Heparin (5000 Units/0.5 ml)) 5,000 unit BID SC Last administered on 12/17/16 09:27; Admin Dose 5,000 UNIT; Start 12/13/16 at 13:00 Labetalol HCl (Normodyne) 100 mg TID PO Last administered on 12/16/16 21:11; Admin Dose 100 MG; Start 12/14/16 at 09:00 Nifedipine (Procardia Xl) 30 mg HS PO Last administered on 12/16/16 21:11; Admin Dose 30 MG; Start 12/15/16 at 21:00 Hydralazine HCl (Apresoline) 10 mg Q4H PRN IV HYPERTENSION; Start 12/15/16 at 18:00 Lactulose (Enulose) 30 gm BID PO Last administered on 12/16/16 21:10; Admin Dose 30 GM; Start 12/16/16 at 10:30; Stop 12/17/16 at 23:00 Bisacodyl (Dulcolax) 10 mg DAILY PO Last administered on 12/16/16 11:06; Admin Dose 10 MG; Start 12/16/16 at 10:30; Stop 12/18/16 at 23:00 Assessment/Plan Chief Complaint/Hosp Course SUBJECTIVE: No events overnight. The patient is alert, looks comfortable, no fevers. INDWELLINGS: R femoral Aris. MICROBIOLOGY: Blood cultures and tip culture growing oxacillin-sensitive Staphylococcus aureus. ANTIMICROBIALS: Ancef. PHYSICAL EXAMINATION: GENERAL: This is a well-developed, obese, middle-aged -[place] woman who is awake, in no distress. HEENT: Head atraumatic, normocephalic. Sclerae anicteric. Buccal mucosa dry. NECK: Supple. CHEST: Rise is symmetrical. Breath sounds diminished to bases. HEART: S1, S2. ABDOMEN: Soft. Bowel tones present. EXTREMITIES: Without cyanosis. ASSESSMENT: 1. Line sepsis with oxacillin sensitive Staphylococcus aureus bacteremia. 2. End-stage renal disease. 3. Hypertension. 4. History of noncompliance and possible substance use. PLAN: The patient remains stable. Repeat bld cx negative, continue abx, pending BLE venograms, vascular rec-s. DW staff Problems: BILL HOFFMAN NP Dec 17, 2016 17:20
[2016-12-17] MEDS: EPOETIN 4000 UNITS/1 ML INJ (ESRD) SC SCH (18:18)
[2016-12-17] MEDS: CEFAZOLIN 2 GM/50 ML (PMX) 50 ML IVPB SCH (18:19)
[2016-12-17] MEDS: NIFEdipine (XL) 30 MG TAB PO SCH (20:15)
[2016-12-18] MEDS: DIPHENHYDRAMINE 50 MG INJ IV PRN ×4 (01:06→22:13)
[2016-12-18] MEDS: HYDROmorphONE 1 MG/ML SYG IV PRN ×7 (01:06→22:55)
[2016-12-18 01:31] VITALS: BP 132/70; RESP 20
[2016-12-18 06:18] LABS: BASOPHILS % 0.2 % (0.0-2.0); EOSINOPHILS # 0.3 10^3/ul (0.0-0.5); EOSINOPHILS % 4.8 % (0.0-7.0); HEMATOCRIT 24.6 % (37.0-47.0); HEMOGLOBIN 7.4 g/dl (12.0-16.0); LYMPHOCYTES # 1.4 10^3/ul (0.8-2.9); LYMPHOCYTES % 21.5 % (15.0-51.0); MEAN CORPUSCULAR HEMOGLOBIN 28.5 pg (29.0-33.0); MEAN CORPUSCULAR HGB CONC 30.1 g/dl (32.0-37.0); MEAN CORPUSCULAR VOLUME 94.6 fl (82.0-101.0); MEAN PLATELET VOLUME 11.3 fl (7.4-10.4); MONOCYTE # 0.6 10^3/ul (0.3-0.9); MONOCYTES % 9.7 % (0.0-11.0); NEUTROPHILS % 63.5 % (39.0-77.0); PLATELET COUNT 198 10^3/UL (140-415); RED CELL DISTRIBUTION WIDTH 17.2 % (11.5-14.5); WHITE BLOOD COUNT 6.3 10^3/ul (4.8-10.8)
[2016-12-18 06:37] LABS: CALCIUM 8.7 mg/dl (8.4-10.2); CREATININE 10.05 mg/dl (0.44-1.00); POTASSIUM 5.2 mmol/L (3.5-5.1)
[2016-12-18 06:38] LABS: MAGNESIUM 1.9 mg/dl (1.7-2.5); PHOSPHORUS 6.4 mg/dl (2.5-4.9)
[2016-12-18 07:31] VITALS: BP 123/63; RESP 18
[2016-12-18] MEDS: NIFEdipine (XL) 60 MG TAB PO SCH (08:35)
[2016-12-18] MEDS: GABAPENTIN 100 MG CAP PO SCH ×2 (08:35→20:59)
[2016-12-18] MEDS: FUROSEMIDE 20 MG TAB PO SCH (08:35)
[2016-12-18] MEDS: MULTIVIT/CA CARB/B CMPLX/FA TAB PO SCH (08:36)
[2016-12-18] MEDS: SEVELAMER 800 MG TAB PO SCH ×3 (08:36→17:52)
[2016-12-18] MEDS: TOPIRAMATE SPRINKLE 25 MG CAP PO SCH ×2 (08:36→20:59)
[2016-12-18] MEDS: FOLIC ACID 1 MG TAB PO SCH (08:36)
[2016-12-18] MEDS: ASPIRIN 81 MG TAB PO SCH (08:36)
[2016-12-18] MEDS: LABETALOL 100 MG TAB PO SCH ×3 (08:37→21:01)
[2016-12-18] MEDS: BISACODYL (EC) 5 MG TAB PO SCH (08:41)
[2016-12-18] MEDS: morphine (ER) 15 MG TAB PO SCH ×2 (08:42→21:00)
[2016-12-18] MEDS: HEPARIN 5,000 UNIT/0.5 ML VIAL SC SCH ×2 (08:56→21:10)
--- NOTE | 2016-12-18 09:54 | CONS ---
MANI PRECIADO 12/18/16 0954: Date/Time of Note Date/Time of Note DATE: 12/18/16 TIME: 09:54 Assessment/Plan Assessment/Plan Chief Complaint/Hosp Course 1. End-stage renal disease. 2. SIRS with leukocytosis, resolved. 3. LOWER EX EDEMA, better 4. Hypertension, controlled. 5. PERMACATH RELATED INFECTION WITH BACTEREMIA. 6. Anemia. 7. History of [place] palsy. Problems: Additional Assessment/Plan 1. CONTINUE hd Consultation Date/Type/Reason Admit Date/Time Dec 07, 2016 at 10:40 Initial Consult Date 12/07/2016 Type of Consultation: ID Referring Provider: JULISSA NI MD 24 HR Interval Summary Constitutional: improved, no complaints Exam/Review of Systems Vital Signs Vitals Vital Signs Date Time Temp Pulse Resp B/P Pulse Ox O2 Delivery O2 Flow Rate FiO2 12/18/16 07:31 98.1 72 18 123/63 99 12/16/16 08:00 Room Air Intake and Output 12/17/16 12/17/16 12/18/16 15:00 23:00 07:00 Intake Total 500 ml 650 ml 700 ml Output Total 4500 ml 0 ml Balance -4000 ml 650 ml 700 ml Exam Constitutional: alert, oriented Respiratory: diminished breath sounds Cardiovascular: regular rate and rhythm Results Result Diagram: 12/18/16 0529 12/18/16 0529 Results 24 hrs Laboratory Tests Test 12/18/16 05:29 White Blood Count 6.3 # Red Blood Count 2.60 L Hemoglobin 7.4 L Hematocrit 24.6 L Mean Corpuscular Volume 94.6 Mean Corpuscular Hemoglobin 28.5 L Mean Corpuscular Hemoglobin Concent 30.1 L Red Cell Distribution Width 17.2 H Platelet Count 198 Mean Platelet Volume 11.3 H Neutrophils % 63.5 Lymphocytes % 21.5 Monocytes % 9.7 Eosinophils % 4.8 Basophils % 0.2 Nucleated Red Blood Cells % 0.0 Neutrophils # 4.0 Lymphocytes # 1.4 Monocytes # 0.6 Eosinophils # 0.3 Basophils # 0.0 Nucleated Red Blood Cells # 0.0 Sodium Level 141 Potassium Level 5.2 H Chloride Level 105 Carbon Dioxide Level 23 Anion Gap 18 H Blood Urea Nitrogen 54 H Creatinine 10.05 H Glucose Level 100 Calcium Level 8.7 Phosphorus Level 6.4 H Magnesium Level 1.9 Medications Medications Current Medications Acetaminophen (Tylenol Tab) 650 mg Q6H PRN PO PAIN LEVEL 1-3 OR FEVER; Start 12/07/16 at 11:00 Docusate Sodium (Colace) 100 mg Q12H PRN PO CONSTIPATION Last administered on 12/11/16 14:42; Admin Dose 100 MG; Start 12/07/16 at 11:00 Magnesium Hydroxide (Milk Of Mag) 30 ml DAILY PRN PO CONSTIPATION; Start at 11:00 Bisacodyl (Dulcolax) 5 mg DAILY PRN PO CONSTIPATION Last administered on 21:26; Admin Dose 5 MG; Start 12/07/16 at 11:00 Aspirin (Aspirin) 81 mg DAILY PO Last administered on 12/18/16 08:36; Admin Dose 81 MG; Start 12/08/16 at 09:00 Furosemide (Lasix) 20 mg DAILY PO Last administered on 12/18/16 08:35; Admin Dose 20 MG; Start 12/08/16 at 09:00 Nifedipine (Procardia Xl) 60 mg DAILY PO Last administered on 12/18/16 08:35 ; Admin Dose 60 MG; Start 12/08/16 at 09:00 Topiramate (Topamax Sprinkle) 25 mg BID PO Last administered on 12/18/16 08: 36; Admin Dose 25 MG; Start 12/07/16 at 21:00 Multivit/Ca Carb/ B Cmplx/FA/Prenat (Sommer-Samantha) 1 tab DAILY PO Last administered on 12/18/16 08:36; Admin Dose 1 TAB; Start 12/09/16 at 09:00 Folic Acid (Folic Acid) 1 mg DAILY PO Last administered on 12/18/16 08:36; Admin Dose 1 MG; Start 12/09/16 at 09:00 Epoetin Zacarias (Epogen (Esrd)) 4,000 units TuThSa@17 SC Last administered on 18:18; Admin Dose 4,000 UNITS; Start 12/10/16 at 17:00 Diphenhydramine HCl (Benadryl) 25 mg Q6H PRN IV for itching Last administered on 12/18/16 06:48; Admin Dose 25 MG; Start 12/10/16 at 12:00 Clonidine (Catapres) 0.2 mg TID PO Last administered on 12/18/16 08:37; Admin Dose 0.2 MG; Start 12/11/16 at 21:00 Hydromorphone HCl (Dilaudid) 1 mg Q3H PRN IV PAIN Last administered on 08:23; Admin Dose 1 MG; Start 12/12/16 at 23:45 Morphine Sulfate (Ms Contin (Er)) 15 mg BID PO Last administered on 12/18/16 08:42; Admin Dose 15 MG; Start 12/13/16 at 09:00 Gabapentin (Neurontin) 200 mg BID PO Last administered on 12/18/16 08:35; Admin Dose 200 MG; Start 12/13/16 at 09:00 Heparin Sodium (Porcine) (Heparin (5000 Units/0.5 ml)) 5,000 unit BID SC Last administered on 12/18/16 08:56; Admin Dose 5,000 UNIT; Start 12/13/16 at 13:00 Labetalol HCl (Normodyne) 100 mg TID PO Last administered on 12/18/16 08:37; Admin Dose 100 MG; Start 12/14/16 at 09:00 Nifedipine (Procardia Xl) 30 mg HS PO Last administered on 12/17/16 20:15; Admin Dose 30 MG; Start 12/15/16 at 21:00 Hydralazine HCl (Apresoline) 10 mg Q4H PRN IV HYPERTENSION; Start 12/15/16 at 18:00 Bisacodyl (Dulcolax) 10 mg DAILY PO Last administered on 12/16/16 11:06; Admin Dose 10 MG; Start 12/16/16 at 10:30; Stop 12/18/16 at 23:00 MICHAEL LEYVA MD 12/18/16 1456: Assessment/Plan Assessment/Plan Additional Assessment/Plan Kayexalate today Increase Renagel Exam/Review of Systems Results Result Diagram: 12/18/16 0529 12/18/16 0529 MANI PRECIADO Dec 18, 2016 09:54 MICHAEL LEYVA MD Dec 18, 2016 14:56
--- NOTE | 2016-12-18 11:31 | PN ---
Date/Time of Note Date/Time of Note DATE: 12/18/16 TIME: 11:29 Assessment/Plan VTE Prophylaxis VTE Prophylaxis Intervention: SCD's Lines/Catheters IV [facility]ter [facility] (from [facility] Mid Line Urinary Cath still in place: No Assessment/Plan Chief Complaint/Hosp Course Assessment and plan 1. Bacteremia with MSSA. ID consult was consulted. Continue antibiotics. Left groin dialysis catheter was already replaced per vascular surgeon. . 2. End-stage renal disease. Continue on dialysis per nephrology recommendations. AV fistula per surgeon 3. Hypertension. Continue antihypertensives and adjust as needed 4. History of migraines. Continue with analgesics as needed. 5. left leg pain.repeat doppler of LLE negative for DVT. cont abx and analgesics Disposition plan: continue abx. follow up with surgeon recchristian. continue inhouse monitoring Discussed with Dr. umanzor Problems: Subjective 24 Hr Interval Summary Free Text/Dictation comfortable at present. no s/s of distress Exam/Review of Systems Vital Signs Vitals Vital Signs Date Time Temp Pulse Resp B/P Pulse Ox O2 Delivery O2 Flow Rate FiO2 12/18/16 07:31 98.1 72 18 123/63 99 12/16/16 08:00 Room Air Intake and Output 12/17/16 12/17/16 12/18/16 15:00 23:00 07:00 Intake Total 500 ml 650 ml 700 ml Output Total 4500 ml 0 ml Balance -4000 ml 650 ml 700 ml Exam Constitutional: alert, oriented Psych: nl mood/affect Head: normocephalic Respiratory: clear to auscultation, normal air movement Cardiovascular: regular rate and rhythm Gastrointestinal: non-tender, soft Musculoskeletal: swelling (swelling left lower extremity) pain on palpation, unchanged Neurological: [employer]ATOR II-XII intact, nl mental status, nl speech Skin: other (dialysis catheter left groin ) Results Result Diagram: 12/18/16 0529 12/18/16 0529 Results 24 hrs Laboratory Tests Test 12/18/16 05:29 White Blood Count 6.3 # Red Blood Count 2.60 L Hemoglobin 7.4 L Hematocrit 24.6 L Mean Corpuscular Volume 94.6 Mean Corpuscular Hemoglobin 28.5 L Mean Corpuscular Hemoglobin Concent 30.1 L Red Cell Distribution Width 17.2 H Platelet Count 198 Mean Platelet Volume 11.3 H Neutrophils % 63.5 Lymphocytes % 21.5 Monocytes % 9.7 Eosinophils % 4.8 Basophils % 0.2 Nucleated Red Blood Cells % 0.0 Neutrophils # 4.0 Lymphocytes # 1.4 Monocytes # 0.6 Eosinophils # 0.3 Basophils # 0.0 Nucleated Red Blood Cells # 0.0 Sodium Level 141 Potassium Level 5.2 H Chloride Level 105 Carbon Dioxide Level 23 Anion Gap 18 H Blood Urea Nitrogen 54 H Creatinine 10.05 H Glucose Level 100 Calcium Level 8.7 Phosphorus Level 6.4 H Magnesium Level 1.9 Medications Medications Current Medications Acetaminophen (Tylenol Tab) 650 mg Q6H PRN PO PAIN LEVEL 1-3 OR FEVER; Start 12/07/16 at 11:00 Docusate Sodium (Colace) 100 mg Q12H PRN PO CONSTIPATION Last administered on 12/11/16 14:42; Admin Dose 100 MG; Start 12/07/16 at 11:00 Magnesium Hydroxide (Milk Of Mag) 30 ml DAILY PRN PO CONSTIPATION; Start at 11:00 Bisacodyl (Dulcolax) 5 mg DAILY PRN PO CONSTIPATION Last administered on 21:26; Admin Dose 5 MG; Start 12/07/16 at 11:00 Aspirin (Aspirin) 81 mg DAILY PO Last administered on 12/18/16 08:36; Admin Dose 81 MG; Start 12/08/16 at 09:00 Furosemide (Lasix) 20 mg DAILY PO Last administered on 12/18/16 08:35; Admin Dose 20 MG; Start 12/08/16 at 09:00 Nifedipine (Procardia Xl) 60 mg DAILY PO Last administered on 12/18/16 08:35 ; Admin Dose 60 MG; Start 12/08/16 at 09:00 Topiramate (Topamax Sprinkle) 25 mg BID PO Last administered on 12/18/16 08: 36; Admin Dose 25 MG; Start 12/07/16 at 21:00 Multivit/Ca Carb/ B Cmplx/FA/Prenat (Sommer-Samantha) 1 tab DAILY PO Last administered on 12/18/16 08:36; Admin Dose 1 TAB; Start 12/09/16 at 09:00 Folic Acid (Folic Acid) 1 mg DAILY PO Last administered on 12/18/16 08:36; Admin Dose 1 MG; Start 12/09/16 at 09:00 Epoetin Zacarias (Epogen (Esrd)) 4,000 units TuThSa@17 SC Last administered on 18:18; Admin Dose 4,000 UNITS; Start 12/10/16 at 17:00 Diphenhydramine HCl (Benadryl) 25 mg Q6H PRN IV for itching Last administered on 12/18/16 06:48; Admin Dose 25 MG; Start 12/10/16 at 12:00 Clonidine (Catapres) 0.2 mg TID PO Last administered on 12/18/16 08:37; Admin Dose 0.2 MG; Start 12/11/16 at 21:00 Hydromorphone HCl (Dilaudid) 1 mg Q3H PRN IV PAIN Last administered on 08:23; Admin Dose 1 MG; Start 12/12/16 at 23:45 Morphine Sulfate (Ms Contin (Er)) 15 mg BID PO Last administered on 12/18/16 08:42; Admin Dose 15 MG; Start 12/13/16 at 09:00 Gabapentin (Neurontin) 200 mg BID PO Last administered on 12/18/16 08:35; Admin Dose 200 MG; Start 12/13/16 at 09:00 Heparin Sodium (Porcine) (Heparin (5000 Units/0.5 ml)) 5,000 unit BID SC Last administered on 12/18/16 08:56; Admin Dose 5,000 UNIT; Start 12/13/16 at 13:00 Labetalol HCl (Normodyne) 100 mg TID PO Last administered on 12/18/16 08:37; Admin Dose 100 MG; Start 12/14/16 at 09:00 Nifedipine (Procardia Xl) 30 mg HS PO Last administered on 12/17/16 20:15; Admin Dose 30 MG; Start 12/15/16 at 21:00 Hydralazine HCl (Apresoline) 10 mg Q4H PRN IV HYPERTENSION; Start 12/15/16 at 18:00 Bisacodyl (Dulcolax) 10 mg DAILY PO Last administered on 12/16/16 11:06; Admin Dose 10 MG; Start 12/16/16 at 10:30; Stop 12/18/16 at 23:00 TACHO ORTEGA Dec 18, 2016 11:31
[2016-12-18 13:37] VITALS: BP 122/74; RESP 19
--- NOTE | 2016-12-18 13:43 | CONS ---
Date/Time of Note Date/Time of Note DATE: 12/18/16 TIME: 13:42 Assessment/Plan Assessment/Plan Additional Assessment/Plan 1. Preoperative evaluation prior to creation of AV fistula.-negative trop cx3/ NL EF by echo. No sig valve abnl. OK to proceed to OR at moderate risk without further noninvasive evaluation - vascular team follows Now with limited flow HD cath - vascular to follow- STABLE. 2. Chest pain, atypical at this time, normal ejection fraction on echo - no CP now. BETTER now. 3. Hypertension - better controlled now. Remove fluid withHd. 4. End-stage renal disease on hemodialysis - per renal team. 5. History of migraine headaches. 6. History of multiple failed chest wall catheters likely cause the patient's intermittent chest pains.-Negative trop x3 - no CP now. 7. Edema of JG-[id number]-DM doppler neg for DVTow. 2. Chest pain, atypical at this time, normal ejection fraction on echo - no CP now. 3. Hypertension - better controlled now. 4. End-stage renal disease on hemodialysis - per renal team. 5. History of migraine headaches. 6. History of multiple failed chest wall catheters likely cause the patient's intermittent chest pains.-Negative trop x3 7. Edema of KG-xwinonjznx-GF doppler neg for DVT Consultation Date/Type/Reason Admit Date/Time Dec 07, 2016 at 10:40 Type of Consultation: ID Referring Provider: JULISSA NI MD 24 HR Interval Summary Free Text/Dictation Better overall. NO CP noted - will monitor clinically now. ROS: No fever, no chills, no nausea, no vomiting, no diarrhea/constipation No recent weight changes No chest pain, no PND, no orthopnea No dizziness, blurred vision No thirst, no heat or cold intolerance Exam/Review of Systems Vital Signs Vitals Vital Signs Date Time Temp Pulse Resp B/P Pulse Ox O2 Delivery O2 Flow Rate FiO2 12/18/16 13:37 98.0 77 19 122/74 98 12/16/16 08:00 Room Air Intake and Output 12/17/16 12/17/16 12/18/16 15:00 23:00 07:00 Intake Total 500 ml 650 ml 700 ml Output Total 4500 ml 0 ml Balance -4000 ml 650 ml 700 ml Exam General: WN/WD/NAD, AOx 3 HEENT: Unicetric/atraumatic/EOMI (follow commands) NECK: JVD elevated, no thyromegaly Lymph: no lymphadenopathy HEART: regular with no S3, II/ systolic murmur at apex LUNGS: Coarse sounds ABD: soft, NT, ND, +BS : Intact Neuro: non focal SKIN: chronic changes EXT: trace edema Results Result Diagram: 12/18/1652812/18/16 05 Results 24 hrs Laboratory Tests Test 12/18/16 05:29 White Blood Count 6.3 # Red Blood Count 2.60 L Hemoglobin 7.4 L Hematocrit 24.6 L Mean Corpuscular Volume 94.6 Mean Corpuscular Hemoglobin 28.5 L Mean Corpuscular Hemoglobin Concent 30.1 L Red Cell Distribution Width 17.2 H Platelet Count 198 Mean Platelet Volume 11.3 H Neutrophils % 63.5 Lymphocytes % 21.5 Monocytes % 9.7 Eosinophils % 4.8 Basophils % 0.2 Nucleated Red Blood Cells % 0.0 Neutrophils # 4.0 Lymphocytes # 1.4 Monocytes # 0.6 Eosinophils # 0.3 Basophils # 0.0 Nucleated Red Blood Cells # 0.0 Sodium Level 141 Potassium Level 5.2 H Chloride Level 105 Carbon Dioxide Level 23 Anion Gap 18 H Blood Urea Nitrogen 54 H Creatinine 10.05 H Glucose Level 100 Calcium Level 8.7 Phosphorus Level 6.4 H Magnesium Level 1.9 Medications Medications Current Medications Acetaminophen (Tylenol Tab) 650 mg Q6H PRN PO PAIN LEVEL 1-3 OR FEVER; Start 12/07/16 at 11:00 Docusate Sodium (Colace) 100 mg Q12H PRN PO CONSTIPATION Last administered on 12/11/16 14:42; Admin Dose 100 MG; Start 12/07/16 at 11:00 Magnesium Hydroxide (Milk Of Mag) 30 ml DAILY PRN PO CONSTIPATION; Start at 11:00 Bisacodyl (Dulcolax) 5 mg DAILY PRN PO CONSTIPATION Last administered on 21:26; Admin Dose 5 MG; Start 12/07/16 at 11:00 Aspirin (Aspirin) 81 mg DAILY PO Last administered on 12/18/16 08:36; Admin Dose 81 MG; Start 12/08/16 at 09:00 Furosemide (Lasix) 20 mg DAILY PO Last administered on 12/18/16 08:35; Admin Dose 20 MG; Start 12/08/16 at 09:00 Nifedipine (Procardia Xl) 60 mg DAILY PO Last administered on 12/18/16 08:35 ; Admin Dose 60 MG; Start 12/08/16 at 09:00 Topiramate (Topamax Sprinkle) 25 mg BID PO Last administered on 12/18/16 08: 36; Admin Dose 25 MG; Start 12/07/16 at 21:00 Multivit/Ca Carb/ B Cmplx/FA/Prenat (Sommer-Samantha) 1 tab DAILY PO Last administered on 12/18/16 08:36; Admin Dose 1 TAB; Start 12/09/16 at 09:00 Folic Acid (Folic Acid) 1 mg DAILY PO Last administered on 12/18/16 08:36; Admin Dose 1 MG; Start 12/09/16 at 09:00 Epoetin Zacarias (Epogen (Esrd)) 4,000 units TuThSa@17 SC Last administered on 18:18; Admin Dose 4,000 UNITS; Start 12/10/16 at 17:00 Diphenhydramine HCl (Benadryl) 25 mg Q6H PRN IV for itching Last administered on 12/18/16 06:48; Admin Dose 25 MG; Start 12/10/16 at 12:00 Clonidine (Catapres) 0.2 mg TID PO Last administered on 12/18/16 13:36; Admin Dose 0.2 MG; Start 12/11/16 at 21:00 Hydromorphone HCl (Dilaudid) 1 mg Q3H PRN IV PAIN Last administered on 11:46; Admin Dose 1 MG; Start 12/12/16 at 23:45 Morphine Sulfate (Ms Contin (Er)) 15 mg BID PO Last administered on 12/18/16 08:42; Admin Dose 15 MG; Start 12/13/16 at 09:00 Gabapentin (Neurontin) 200 mg BID PO Last administered on 12/18/16 08:35; Admin Dose 200 MG; Start 12/13/16 at 09:00 Heparin Sodium (Porcine) (Heparin (5000 Units/0.5 ml)) 5,000 unit BID SC Last administered on 12/18/16 08:56; Admin Dose 5,000 UNIT; Start 12/13/16 at 13:00 Labetalol HCl (Normodyne) 100 mg TID PO Last administered on 12/18/16 13:36; Admin Dose 100 MG; Start 12/14/16 at 09:00 Nifedipine (Procardia Xl) 30 mg HS PO Last administered on 12/17/16 20:15; Admin Dose 30 MG; Start 12/15/16 at 21:00 Hydralazine HCl (Apresoline) 10 mg Q4H PRN IV HYPERTENSION; Start 12/15/16 at 18:00 Bisacodyl (Dulcolax) 10 mg DAILY PO Last administered on 12/16/16 11:06; Admin Dose 10 MG; Start 12/16/16 at 10:30; Stop 12/18/16 at 23:00 CARINA RITTER MD Dec 18, 2016 13:43
[2016-12-18] MEDS ORDERED: NA POLYST SULFON 15 GM/60 ML BTL PO ONE (15:00)
--- NOTE | 2016-12-18 15:00 | CONS ---
Date/Time of Note Date/Time of Note DATE: 12/18/16 TIME: 14:57 Consult Date/Type/Reason Admit Date/Time Dec 07, 2016 at 10:40 Type of Consultation: ID Ordering Provider: JULISSA NI MD Objective Vital Signs Date Time Temp Pulse Resp B/P Pulse Ox O2 Delivery O2 Flow Rate FiO2 12/18/16 13:37 98.0 77 19 122/74 98 12/16/16 08:00 Room Air Intake and Output 12/17/16 12/17/16 12/18/16 15:00 23:00 07:00 Intake Total 500 ml 650 ml 700 ml Output Total 4500 ml 0 ml Balance -4000 ml 650 ml 700 ml Results/Medications Result Diagram: 12/18/1629 12/18/16528 Results 24 hrs Laboratory Tests Test 12/18/16 05:29 White Blood Count 6.3 # Red Blood Count 2.60 L Hemoglobin 7.4 L Hematocrit 24.6 L Mean Corpuscular Volume 94.6 Mean Corpuscular Hemoglobin 28.5 L Mean Corpuscular Hemoglobin Concent 30.1 L Red Cell Distribution Width 17.2 H Platelet Count 198 Mean Platelet Volume 11.3 H Neutrophils % 63.5 Lymphocytes % 21.5 Monocytes % 9.7 Eosinophils % 4.8 Basophils % 0.2 Nucleated Red Blood Cells % 0.0 Neutrophils # 4.0 Lymphocytes # 1.4 Monocytes # 0.6 Eosinophils # 0.3 Basophils # 0.0 Nucleated Red Blood Cells # 0.0 Sodium Level 141 Potassium Level 5.2 H Chloride Level 105 Carbon Dioxide Level 23 Anion Gap 18 H Blood Urea Nitrogen 54 H Creatinine 10.05 H Glucose Level 100 Calcium Level 8.7 Phosphorus Level 6.4 H Magnesium Level 1.9 Medications Current Medications Acetaminophen (Tylenol Tab) 650 mg Q6H PRN PO PAIN LEVEL 1-3 OR FEVER; Start 12/07/16 at 11:00 Docusate Sodium (Colace) 100 mg Q12H PRN PO CONSTIPATION Last administered on 12/11/16 14:42; Admin Dose 100 MG; Start 12/07/16 at 11:00 Magnesium Hydroxide (Milk Of Mag) 30 ml DAILY PRN PO CONSTIPATION; Start at 11:00 Bisacodyl (Dulcolax) 5 mg DAILY PRN PO CONSTIPATION Last administered on 21:26; Admin Dose 5 MG; Start 12/07/16 at 11:00 Aspirin (Aspirin) 81 mg DAILY PO Last administered on 12/18/16 08:36; Admin Dose 81 MG; Start 12/08/16 at 09:00 Furosemide (Lasix) 20 mg DAILY PO Last administered on 12/18/16 08:35; Admin Dose 20 MG; Start 12/08/16 at 09:00 Nifedipine (Procardia Xl) 60 mg DAILY PO Last administered on 12/18/16 08:35 ; Admin Dose 60 MG; Start 12/08/16 at 09:00 Topiramate (Topamax Sprinkle) 25 mg BID PO Last administered on 12/18/16 08: 36; Admin Dose 25 MG; Start 12/07/16 at 21:00 Multivit/Ca Carb/ B Cmplx/FA/Prenat (Sommer-Samantha) 1 tab DAILY PO Last administered on 12/18/16 08:36; Admin Dose 1 TAB; Start 12/09/16 at 09:00 Folic Acid (Folic Acid) 1 mg DAILY PO Last administered on 12/18/16 08:36; Admin Dose 1 MG; Start 12/09/16 at 09:00 Epoetin Zacarias (Epogen (Esrd)) 4,000 units TuThSa@17 SC Last administered on 18:18; Admin Dose 4,000 UNITS; Start 12/10/16 at 17:00 Diphenhydramine HCl (Benadryl) 25 mg Q6H PRN IV for itching Last administered on 12/18/16 06:48; Admin Dose 25 MG; Start 12/10/16 at 12:00 Clonidine (Catapres) 0.2 mg TID PO Last administered on 12/18/16 13:36; Admin Dose 0.2 MG; Start 12/11/16 at 21:00 Hydromorphone HCl (Dilaudid) 1 mg Q3H PRN IV PAIN Last administered on 11:46; Admin Dose 1 MG; Start 12/12/16 at 23:45 Morphine Sulfate (Ms Contin (Er)) 15 mg BID PO Last administered on 12/18/16 08:42; Admin Dose 15 MG; Start 12/13/16 at 09:00 Gabapentin (Neurontin) 200 mg BID PO Last administered on 12/18/16 08:35; Admin Dose 200 MG; Start 12/13/16 at 09:00 Heparin Sodium (Porcine) (Heparin (5000 Units/0.5 ml)) 5,000 unit BID SC Last administered on 12/18/16 08:56; Admin Dose 5,000 UNIT; Start 12/13/16 at 13:00 Labetalol HCl (Normodyne) 100 mg TID PO Last administered on 12/18/16 13:36; Admin Dose 100 MG; Start 12/14/16 at 09:00 Nifedipine (Procardia Xl) 30 mg HS PO Last administered on 12/17/16 20:15; Admin Dose 30 MG; Start 12/15/16 at 21:00 Hydralazine HCl (Apresoline) 10 mg Q4H PRN IV HYPERTENSION; Start 12/15/16 at 18:00 Bisacodyl (Dulcolax) 10 mg DAILY PO Last administered on 12/16/16 11:06; Admin Dose 10 MG; Start 12/16/16 at 10:30; Stop 12/18/16 at 23:00 Sodium Polystyrene Sulfonate (Kayexalate) 30 gm ONCE ONCE PO ; Start 12/18/16 at 15:00; Stop 12/18/16 at 15:01 Assessment/Plan Chief Complaint/Hosp Course SUBJECTIVE: No events overnight. The patient is alert, looks comfortable, no fevers. INDWELLINGS: R femoral Aris. MICROBIOLOGY: Blood cultures and tip culture growing oxacillin-sensitive Staphylococcus aureus. ANTIMICROBIALS: Ancef. PHYSICAL EXAMINATION: GENERAL: This is a well-developed, obese, middle-aged -[place] woman who is awake, in no distress. HEENT: Head atraumatic, normocephalic. Sclerae anicteric. Buccal mucosa dry. NECK: Supple. CHEST: Rise is symmetrical. Breath sounds diminished to bases. HEART: S1, S2. ABDOMEN: Soft. Bowel tones present. EXTREMITIES: Without cyanosis. ASSESSMENT: 1. Line sepsis with oxacillin sensitive Staphylococcus aureus bacteremia, s/p temporary aris. 2. End-stage renal disease. 3. Hypertension. 4. History of noncompliance and possible substance use. PLAN: The patient remains stable. Repeat bld cx negative, continue abx, pending permacath, vascular rec-s. DW staff Problems: BILL HOFFMAN NP Dec 18, 2016 15:00
--- NOTE | 2016-12-18 17:35 | PN ---
Date/Time of Note Date/Time of Note DATE: 12/18/16 TIME: 17:33 Assessment/Plan Lines/Catheters IV Catheter Type (from Nrs): Mid Line [place]pp[place] in Place (from Nrs): No Assessment/Plan Chief Complaint/Hosp Course -Endstage renal disease and central stenosis: It seems the patient has had a longstanding history of multiple chest wall catheters and fistula creations in which have all failed. There is a strong suggestion that patient has central occlusion/stenosis in which she would need to be further evaluated for possible creation of new advanced fistula. -S/P Left groin catheter exchange to a Aris catheter -S/P bilateral UE venograms -Awaiting negative blood cultures prior to placement of a new perm catheter -Will schedule for bilateral lower extremity venograms to evaluate her iliac vein compression and stenosis, however she wants to be completely anesthetized and this will need to be coordinated with laboratory sample carrier and anesthesia team. Currently scheduled at 1030AM Thursday 12/21 -Optimize vascular status (BP meds, diet, nutrition, exercise, sugar control, anti-platelets). -Discussed findings, plan and management with the patient and she understands. -Thank you for allowing us to partake in the care of your patient. Please call with any questions. Problems: Subjective 24 Hr Interval Summary no new events overnight, improved LLE discomfort, still having edema Exam/Review of Systems Vital Signs Vitals Vital Signs Date Time Temp Pulse Resp B/P Pulse Ox O2 Delivery O2 Flow Rate FiO2 12/18/16 13:37 98.0 77 19 122/74 98 12/16/16 08:00 Room Air Intake and Output 12/17/16 12/17/16 12/18/16 14:59 22:59 06:59 Intake Total 500 ml 650 ml 700 ml Output Total 4500 ml 0 ml Balance -4000 ml 650 ml 700 ml Exam Free Text/Dictation GENERAL: Alert and oriented x3, PULMONARY: Clear to auscultation bilaterally. CARDIOVASCULAR: S1, S2 present. ABDOMEN: Soft, nontender, nondistended. Bowel sounds positive. Truncal obesity. EXTREMITIES: Right lower extremity palpable femoral pulse, faint pedal pulse. Motor, sensory intact. Cap refill 2 to 3 seconds. Left lower extremity groin catheter intact, non-tender, erythema resolved, no purulence identified. Palpable femoral pulse, faint pedal pulse. Motor, sensory intact. edema 2-3+, catheter intact Results Result Diagram: 12/18/16 0529 12/18/16 0529 JULISSA NI MD Dec 18, 2016 17:35
[2016-12-18 19:42] VITALS: BP 132/75; RESP 20
[2016-12-18] MEDS: NIFEdipine (XL) 30 MG TAB PO SCH (21:01)
[2016-12-19] VITALS (14 sets, daily range): BP systolic 115–144; BP diastolic 65–83; PULSE 68–85; RESP 16–20
[2016-12-19] MEDS: HYDROmorphONE 1 MG/ML SYG IV PRN ×8 (02:28→23:48)
[2016-12-19] MEDS: DIPHENHYDRAMINE 50 MG INJ IV PRN ×3 (04:10→17:34)
[2016-12-19] MEDS: TOPIRAMATE SPRINKLE 25 MG CAP PO SCH ×2 (08:51→20:38)
[2016-12-19] MEDS: MULTIVIT/CA CARB/B CMPLX/FA TAB PO SCH (08:51)
[2016-12-19] MEDS: LABETALOL 100 MG TAB PO SCH ×3 (08:52→20:38)
[2016-12-19] MEDS: ASPIRIN 81 MG TAB PO SCH (08:52)
[2016-12-19] MEDS: morphine (ER) 15 MG TAB PO SCH ×2 (08:52→21:56)
[2016-12-19] MEDS: FOLIC ACID 1 MG TAB PO SCH (08:53)
[2016-12-19] MEDS: NIFEdipine (XL) 60 MG TAB PO SCH (08:53)
[2016-12-19] MEDS: FUROSEMIDE 20 MG TAB PO SCH (08:53)
[2016-12-19] MEDS: SEVELAMER 800 MG TAB PO SCH ×3 (08:53→17:34)
[2016-12-19] MEDS: GABAPENTIN 100 MG CAP PO SCH ×2 (08:54→20:38)
[2016-12-19] MEDS: HEPARIN 5,000 UNIT/0.5 ML VIAL SC SCH ×2 (09:02→20:49)
--- NOTE | 2016-12-19 10:26 | CONS ---
Date/Time of Note Date/Time of Note DATE: 12/19/16 TIME: : Assessment/Plan Assessment/Plan Chief Complaint/Hosp Course 31 Y/O with # End-stage renal disease on HD T/T/S # Centrals stenosis S/P s/p Left groin catheter exchange to a Aris catheter . SP bilateral UE venograms s/p r iliac vein compression and stenosis # . Line sepsis with oxacillin sensitive Staphylococcus aureus bacteremia., repeat bld cx negative # Leukocytosis # Hyperkalemia # Hypertension, controlled. # Anemia. # History of [place] palsy. # HX Migraines # HX Multiple chest wall catheters Recs - Spoke to Dr Cody,will have bilateral lower extremity venograms to evaluate her iliac vein compression and stenosis and permacath on 12/21 - Eventually will be scheduled for fistula placement - HD T/T/S - Pain control - c/W [place] 1600 tid with meals - abx per ID - c/w epogen Problems: Consultation Date/Type/Reason Admit Date/Time Dec 07, 2016 at 10:40 Initial Consult Date Type of Consultation: Renal Referring Provider: JULISSA NI MD 24 HR Interval Summary Free Text/Dictation Some pain in LLE Exam/Review of Systems Vital Signs Vitals Vital Signs Date Time Temp Pulse Resp B/P Pulse Ox O2 Delivery O2 Flow Rate FiO2 12/19/16 07:42 98.0 74 18 117/67 99 12/16/16 08:00 Room Air Intake and Output 12/18/16 12/18/16 12/19/16 15:00 23:00 07:00 Intake Total 1040 ml 120 ml Balance 1040 ml 120 ml Exam GENERAL: Alert and oriented x3, PULMONARY: Clear to auscultation bilaterally. CARDIOVASCULAR: S1, S2 present. ABDOMEN: Soft, nontender, nondistended. Bowel sounds positive. Truncal obesity. EXTREMITIES: Left lower extremity groin catheter intact, non-tender, erythema resolved, no purulence identified. Results Result Diagram: 12/18/1629 12/18/16528 Medications Medications Current Medications Acetaminophen (Tylenol Tab) 650 mg Q6H PRN PO PAIN LEVEL 1-3 OR FEVER; Start 12/07/16 at 11:00 Docusate Sodium (Colace) 100 mg Q12H PRN PO CONSTIPATION Last administered on 12/11/16 14:42; Admin Dose 100 MG; Start 12/07/16 at 11:00 Magnesium Hydroxide (Milk Of Mag) 30 ml DAILY PRN PO CONSTIPATION; Start at 11:00 Bisacodyl (Dulcolax) 5 mg DAILY PRN PO CONSTIPATION Last administered on 21:26; Admin Dose 5 MG; Start 12/07/16 at 11:00 Aspirin (Aspirin) 81 mg DAILY PO Last administered on 12/19/16 08:52; Admin Dose 81 MG; Start 12/08/16 at 09:00 Furosemide (Lasix) 20 mg DAILY PO Last administered on 12/19/16 08:53; Admin Dose 20 MG; Start 12/08/16 at 09:00 Nifedipine (Procardia Xl) 60 mg DAILY PO Last administered on 12/19/16 08:53 ; Admin Dose 60 MG; Start 12/08/16 at 09:00 Topiramate (Topamax Sprinkle) 25 mg BID PO Last administered on 12/19/16 08: 51; Admin Dose 25 MG; Start 12/07/16 at 21:00 Multivit/Ca Carb/ B Cmplx/FA/Prenat (Sommer-Samantha) 1 tab DAILY PO Last administered on 12/19/16 08:51; Admin Dose 1 TAB; Start 12/09/16 at 09:00 Folic Acid (Folic Acid) 1 mg DAILY PO Last administered on 12/19/16 08:53; Admin Dose 1 MG; Start 12/09/16 at 09:00 Epoetin Zacarias (Epogen (Esrd)) 4,000 units TuTa@17 SC Last administered on 18:18; Admin Dose 4,000 UNITS; Start 12/10/16 at 17:00 Diphenhydramine HCl (Benadryl) 25 mg Q6H PRN IV for itching Last administered on 12/19/16 04:10; Admin Dose 25 MG; Start 12/10/16 at 12:00 Clonidine (Catapres) 0.2 mg TID PO Last administered on 12/19/16 08:51; Admin Dose 0.2 MG; Start 12/11/16 at 21:00 Hydromorphone HCl (Dilaudid) 1 mg Q3H PRN IV PAIN Last administered on 08:51; Admin Dose 1 MG; Start 12/12/16 at 23:45 Morphine Sulfate (Ms Contin (Er)) 15 mg BID PO Last administered on 12/19/16 08:52; Admin Dose 15 MG; Start 12/13/16 at 09:00 Gabapentin (Neurontin) 200 mg BID PO Last administered on 12/19/16 08:54; Admin Dose 200 MG; Start 12/13/16 at 09:00 Heparin Sodium (Porcine) (Heparin (5000 Units/0.5 ml)) 5,000 unit BID SC Last administered on 12/19/16 09:02; Admin Dose 5,000 UNIT; Start 12/13/16 at 13:00 Labetalol HCl (Normodyne) 100 mg TID PO Last administered on 12/19/16 08:52; Admin Dose 100 MG; Start 12/14/16 at 09:00 Nifedipine (Procardia Xl) 30 mg HS PO Last administered on 12/18/16 21:01; Admin Dose 30 MG; Start 12/15/16 at 21:00 Hydralazine HCl (Apresoline) 10 mg Q4H PRN IV HYPERTENSION; Start 12/15/16 at 18:00 MICHAEL LEYVA MD Dec 19, 2016 10:26
--- NOTE | 2016-12-19 11:45 | CONS ---
Date/Time of Note Date/Time of Note DATE: 12/19/16 TIME: 11:42 Assessment/Plan Assessment/Plan Chief Complaint/Hosp Course IMPRESSION: 1. Preoperative evaluation prior to creation of AV fistula.-negative trop cx3/ NL EF by echo. No sig valve abnl. OK to proceed to OR at moderate risk without further noninvasive evaluation 2. Chest pain, atypical at this time, normal ejection fraction on echo. 3. Hypertension-uncontrolled 4. End-stage renal disease on hemodialysis. 5. History of migraine headaches. 6. History of multiple failed chest wall catheters likely cause the patient's intermittent chest pains.-Negative trop x3 7. Edema of YU-dwzeekrzgu-AN doppler neg for DVT 8. Extrinsic compression of illiac vein Recc: -Continue current anti-hypertensives with increase to procardia XL and f/u BP after receiving -HD for volume removal -Ongoing eval of assymetric LE edema -pnding AVF creation Problems: Consultation Date/Type/Reason Admit Date/Time Dec 07, 2016 at 10:40 Initial Consult Date 12/12/2016 Type of Consultation: cardiology Reason for Consultation Pre-op Referring Provider: JULISSA NI MD Exam/Review of Systems Vital Signs Vitals Vital Signs Date Time Temp Pulse Resp B/P Pulse Ox O2 Delivery O2 Flow Rate FiO2 12/19/16 07:42 98.0 74 18 117/67 99 12/16/16 08:00 Room Air Intake and Output 12/18/16 12/18/16 12/19/16 15:00 23:00 07:00 Intake Total 1040 ml 120 ml Balance 1040 ml 120 ml Exam Review of Systems: CONSTITUTIONAL: No fevers, chills. PULMONARY: No sob CARDIOVASCULAR: No chest pain/palpitations GASTROINTESTINAL: No nausea/vomiting. GENITOURINARY: No hematuria/dysuria. MUSCULOSKELETAL: No myagias/arthalgias. PSYCHIATRIC: The patient denies depression. NEUROLOGIC: No weakness Constitutional: other (sleeping) Head: normocephalic ENMT: mucosa pink and moist Neck: jvd (9 cm water), supple Respiratory: diminished breath sounds (at bases/B) Cardiovascular: regular rate and rhythm Gastrointestinal: non-tender, soft Musculoskeletal: muscle tone (normal) Extremities: pitting pedal edema (bilateral) Neurological: other (No focal deficits) Results Result Diagram: 12/18/1652812/18/16528 Medications Medications Current Medications Acetaminophen (Tylenol Tab) 650 mg Q6H PRN PO PAIN LEVEL 1-3 OR FEVER; Start 12/07/16 at 11:00 Docusate Sodium (Colace) 100 mg Q12H PRN PO CONSTIPATION Last administered on 12/11/16 14:42; Admin Dose 100 MG; Start 12/07/16 at 11:00 Magnesium Hydroxide (Milk Of Mag) 30 ml DAILY PRN PO CONSTIPATION; Start at 11:00 Bisacodyl (Dulcolax) 5 mg DAILY PRN PO CONSTIPATION Last administered on 21:26; Admin Dose 5 MG; Start 12/07/16 at 11:00 Aspirin (Aspirin) 81 mg DAILY PO Last administered on 12/19/16 08:52; Admin Dose 81 MG; Start 12/08/16 at 09:00 Furosemide (Lasix) 20 mg DAILY PO Last administered on 12/19/16 08:53; Admin Dose 20 MG; Start 12/08/16 at 09:00 Nifedipine (Procardia Xl) 60 mg DAILY PO Last administered on 12/19/16 08:53 ; Admin Dose 60 MG; Start 12/08/16 at 09:00 Topiramate (Topamax Sprinkle) 25 mg BID PO Last administered on 12/19/16 08: 51; Admin Dose 25 MG; Start 12/07/16 at 21:00 Multivit/Ca Carb/ B Cmplx/FA/Prenat (Sommer-Samantha) 1 tab DAILY PO Last administered on 12/19/16 08:51; Admin Dose 1 TAB; Start 12/09/16 at 09:00 Folic Acid (Folic Acid) 1 mg DAILY PO Last administered on 12/19/16 08:53; Admin Dose 1 MG; Start 12/09/16 at 09:00 Epoetin Zacarias (Epogen (Esrd)) 4,000 units TuThSa@17 SC Last administered on 18:18; Admin Dose 4,000 UNITS; Start 12/10/16 at 17:00 Diphenhydramine HCl (Benadryl) 25 mg Q6H PRN IV for itching Last administered on 11/13/17at 11:11; Admin Dose 25 MG; Start 12/10/16 at 12:00 Clonidine (Catapres) 0.2 mg TID PO Last administered on 12/19/16 08:51; Admin Dose 0.2 MG; Start 12/11/16 at 21:00 Hydromorphone HCl (Dilaudid) 1 mg Q3H PRN IV PAIN Last administered on 08:51; Admin Dose 1 MG; Start 12/12/16 at 23:45 Morphine Sulfate (Ms Contin (Er)) 15 mg BID PO Last administered on 12/19/16 08:52; Admin Dose 15 MG; Start 12/13/16 at 09:00 Gabapentin (Neurontin) 200 mg BID PO Last administered on 12/19/16 08:54; Admin Dose 200 MG; Start 12/13/16 at 09:00 Heparin Sodium (Porcine) (Heparin (5000 Units/0.5 ml)) 5,000 unit BID SC Last administered on 12/19/16 09:02; Admin Dose 5,000 UNIT; Start 12/13/16 at 13:00 Labetalol HCl (Normodyne) 100 mg TID PO Last administered on 12/19/16 08:52; Admin Dose 100 MG; Start 12/14/16 at 09:00 Nifedipine (Procardia Xl) 30 mg HS PO Last administered on 12/18/16 21:01; Admin Dose 30 MG; Start 12/15/16 at 21:00 Hydralazine HCl (Apresoline) 10 mg Q4H PRN IV HYPERTENSION; Start 12/15/16 at 18:00 ETHAN MCKINLEY 13, 2017 11:45
--- NOTE | 2016-12-19 12:49 | CONS ---
Date/Time of Note Date/Time of Note DATE: 12/19/16 TIME: 12:48 Consult Date/Type/Reason Admit Date/Time Dec 07, 2016 at 10:40 Type of Consultation: ID Ordering Provider: JULISSA NI MD Objective Vital Signs Date Time Temp Pulse Resp B/P Pulse Ox O2 Delivery O2 Flow Rate FiO2 12/19/16 11:45 75 14 12/19/16 07:42 98.0 117/67 99 12/16/16 08:00 Room Air Intake and Output 12/18/16 12/18/16 12/19/16 15:00 23:00 07:00 Intake Total 1040 ml 120 ml Balance 1040 ml 120 ml Results/Medications Result Diagram: 12/18/16 0529 12/18/16 0529 Medications Current Medications Acetaminophen (Tylenol Tab) 650 mg Q6H PRN PO PAIN LEVEL 1-3 OR FEVER; Start 12/07/16 at 11:00 Docusate Sodium (Colace) 100 mg Q12H PRN PO CONSTIPATION Last administered on 12/11/16 14:42; Admin Dose 100 MG; Start 12/07/16 at 11:00 Magnesium Hydroxide (Milk Of Mag) 30 ml DAILY PRN PO CONSTIPATION; Start at 11:00 Bisacodyl (Dulcolax) 5 mg DAILY PRN PO CONSTIPATION Last administered on 21:26; Admin Dose 5 MG; Start 12/07/16 at 11:00 Aspirin (Aspirin) 81 mg DAILY PO Last administered on 12/19/16 08:52; Admin Dose 81 MG; Start 12/08/16 at 09:00 Furosemide (Lasix) 20 mg DAILY PO Last administered on 12/19/16 08:53; Admin Dose 20 MG; Start 12/08/16 at 09:00 Nifedipine (Procardia Xl) 60 mg DAILY PO Last administered on 12/19/16 08:53 ; Admin Dose 60 MG; Start 12/08/16 at 09:00 Topiramate (Topamax Sprinkle) 25 mg BID PO Last administered on 12/19/16 08: 51; Admin Dose 25 MG; Start 12/07/16 at 21:00 Multivit/Ca Carb/ B Cmplx/FA/Prenat (Sommer-Samantha) 1 tab DAILY PO Last administered on 12/19/16 08:51; Admin Dose 1 TAB; Start 12/09/16 at 09:00 Folic Acid (Folic Acid) 1 mg DAILY PO Last administered on 12/19/16 08:53; Admin Dose 1 MG; Start 12/09/16 at 09:00 Epoetin Zacarias (Epogen (Esrd)) 4,000 units TuThSa@17 SC Last administered on 18:18; Admin Dose 4,000 UNITS; Start 12/10/16 at 17:00 Diphenhydramine HCl (Benadryl) 25 mg Q6H PRN IV for itching Last administered on 12/19/16 11:11; Admin Dose 25 MG; Start 12/10/16 at 12:00 Clonidine (Catapres) 0.2 mg TID PO Last administered on 12/19/16 08:51; Admin Dose 0.2 MG; Start 12/11/16 at 21:00 Hydromorphone HCl (Dilaudid) 1 mg Q3H PRN IV PAIN Last administered on 11:43; Admin Dose 1 MG; Start 12/12/16 at 23:45 Morphine Sulfate (Ms Contin (Er)) 15 mg BID PO Last administered on 12/19/16 08:52; Admin Dose 15 MG; Start 12/13/16 at 09:00 Gabapentin (Neurontin) 200 mg BID PO Last administered on 12/19/16 08:54; Admin Dose 200 MG; Start 12/13/16 at 09:00 Heparin Sodium (Porcine) (Heparin (5000 Units/0.5 ml)) 5,000 unit BID SC Last administered on 12/19/16 09:02; Admin Dose 5,000 UNIT; Start 12/13/16 at 13:00 Labetalol HCl (Normodyne) 100 mg TID PO Last administered on 12/19/16 08:52; Admin Dose 100 MG; Start 12/14/16 at 09:00 Nifedipine (Procardia Xl) 30 mg HS PO Last administered on 12/18/16 21:01; Admin Dose 30 MG; Start 12/15/16 at 21:00 Hydralazine HCl (Apresoline) 10 mg Q4H PRN IV HYPERTENSION; Start 12/15/16 at 18:00 Assessment/Plan Chief Complaint/Hosp Course SUBJECTIVE: No events overnight. The patient is alert, looks comfortable, no fevers. INDWELLINGS: R femoral Aris. MICROBIOLOGY: Blood cultures and tip culture growing oxacillin-sensitive Staphylococcus aureus. ANTIMICROBIALS: Ancef. PHYSICAL EXAMINATION: GENERAL: This is a well-developed, obese, middle-aged -[place] woman who is awake, in no distress. HEENT: Head atraumatic, normocephalic. Sclerae anicteric. Buccal mucosa dry. NECK: Supple. CHEST: Rise is symmetrical. Breath sounds diminished to bases. HEART: S1, S2. ABDOMEN: Soft. Bowel tones present. EXTREMITIES: Without cyanosis. ASSESSMENT: 1. Line sepsis with oxacillin sensitive Staphylococcus aureus bacteremia, s/p temporary aris. 2. End-stage renal disease. 3. Hypertension. 4. History of noncompliance and possible substance use. PLAN: The patient remains stable. Repeat bld cx negative, continue abx, pending permacath, vascular follows. PATR[facility] staff Problems: BILL HOFFMAN NP Dec 19, 2016 12:49
--- NOTE | 2016-12-19 13:18 | PN ---
Date/Time of Note Date/Time of Note DATE: 12/19/16 TIME: 13:13 Assessment/Plan VTE Prophylaxis VTE Prophylaxis Intervention: SCD's Lines/Catheters IV Catheter Type (from Nrs): quintoncatdoris w pigtail Urinary Cath still in place: No Assessment/Plan Assessment/Plan 31 yo F with ESRD on HD admitted for MSSA bacteremia from infected L groin cath , sp line exchange over guidewire. PLAN cont ancef after HD. anticipated 4-6 weeks of treatment from first negative blood culture tentative new line placement 10.15 for LLE swelling, compression and PT eval. no evidence of arterial or venous thromboembolism Subjective 24 Hr Interval Summary Free Text/Dictation Pt notes swelling of her L leg since catheter exchanged Exam/Review of Systems Vital Signs Vitals Vital Signs Date Time Temp Pulse Resp B/P Pulse Ox O2 Delivery O2 Flow Rate FiO2 12/19/16 12:30 85 12/19/16 11:45 14 12/19/16 07:42 98.0 117/67 99 12/16/16 08:00 Room Air Intake and Output 12/18/16 12/18/16 12/19/16 14:59 22:59 06:59 Intake Total 1040 ml 120 ml Balance 1040 ml 120 ml Exam nad no mrg lungs clear abd soft diffuse swelling 1+ of LLE from foot to upper thigh. LLE vascular imaging CTA with no occlusion noted in arterial system no compelling evidence of DVT, suspected extrinsic compression of the left iliac vein by the left common iliac artery which is partially diminished due to the presence of the left femoral approach venous catheter; Results Result Diagram: 12/18/1629 12/18/16528 Medications Medications Current Medications Acetaminophen (Tylenol Tab) 650 mg Q6H PRN PO PAIN LEVEL 1-3 OR FEVER; Start 12/07/16 at 11:00 Docusate Sodium (Colace) 100 mg Q12H PRN PO CONSTIPATION Last administered on 12/11/16 14:42; Admin Dose 100 MG; Start 12/07/16 at 11:00 Magnesium Hydroxide (Milk Of Mag) 30 ml DAILY PRN PO CONSTIPATION; Start at 11:00 Bisacodyl (Dulcolax) 5 mg DAILY PRN PO CONSTIPATION Last administered on 21:26; Admin Dose 5 MG; Start 12/07/16 at 11:00 Aspirin (Aspirin) 81 mg DAILY PO Last administered on 12/19/16 08:52; Admin Dose 81 MG; Start 12/08/16 at 09:00 Furosemide (Lasix) 20 mg DAILY PO Last administered on 12/19/16 08:53; Admin Dose 20 MG; Start 12/08/16 at 09:00 Nifedipine (Procardia Xl) 60 mg DAILY PO Last administered on 12/19/16 08:53 ; Admin Dose 60 MG; Start 12/08/16 at 09:00 Topiramate (Topamax Sprinkle) 25 mg BID PO Last administered on 12/19/16 08: 51; Admin Dose 25 MG; Start 12/07/16 at 21:00 Multivit/Ca Carb/ B Cmplx/FA/Prenat (Sommer-Samantha) 1 tab DAILY PO Last administered on 12/19/16 08:51; Admin Dose 1 TAB; Start 12/09/16 at 09:00 Folic Acid (Folic Acid) 1 mg DAILY PO Last administered on 12/19/16 08:53; Admin Dose 1 MG; Start 12/09/16 at 09:00 Epoetin Zacarias (Epogen (Esrd)) 4,000 units TuThSa@17 SC Last administered on 18:18; Admin Dose 4,000 UNITS; Start 12/10/16 at 17:00 Diphenhydramine HCl (Benadryl) 25 mg Q6H PRN IV for itching Last administered on 12/19/16 11:11; Admin Dose 25 MG; Start 12/10/16 at 12:00 Clonidine (Catapres) 0.2 mg TID PO Last administered on 12/19/16 08:51; Admin Dose 0.2 MG; Start 12/11/16 at 21:00 Hydromorphone HCl (Dilaudid) 1 mg Q3H PRN IV PAIN Last administered on 11:43; Admin Dose 1 MG; Start 12/12/16 at 23:45 Morphine Sulfate (Ms Contin (Er)) 15 mg BID PO Last administered on 12/19/16 08:52; Admin Dose 15 MG; Start 12/13/16 at 09:00 Gabapentin (Neurontin) 200 mg BID PO Last administered on 12/19/16 08:54; Admin Dose 200 MG; Start 12/13/16 at 09:00 Heparin Sodium (Porcine) (Heparin (5000 Units/0.5 ml)) 5,000 unit BID SC Last administered on 12/19/16 09:02; Admin Dose 5,000 UNIT; Start 12/13/16 at 13:00 Labetalol HCl (Normodyne) 100 mg TID PO Last administered on 12/19/16 08:52; Admin Dose 100 MG; Start 12/14/16 at 09:00 Nifedipine (Procardia Xl) 30 mg HS PO Last administered on 12/18/16 21:01; Admin Dose 30 MG; Start 12/15/16 at 21:00 Hydralazine HCl (Apresoline) 10 mg Q4H PRN IV HYPERTENSION; Start 12/15/16 at 18:00 BHARAT BLACK MD Dec 19, 2016 13:18
[2016-12-19] MEDS: CEFAZOLIN 2 GM/50 ML (PMX) 50 ML IVPB SCH (15:14)
[2016-12-19] MEDS: NIFEdipine (XL) 30 MG TAB PO SCH (20:38)
[2016-12-19] MEDS ORDERED: DIPHENHYDRAMINE 50 MG INJ IV ONE (23:00)
[2016-12-20] MEDS: DIPHENHYDRAMINE 50 MG INJ IV PRN ×4 (00:38→18:50)
[2016-12-20 01:45] VITALS: BP 131/70; RESP 20
[2016-12-20] MEDS: HYDROmorphONE 1 MG/ML SYG IV PRN ×6 (03:11→19:48)
[2016-12-20 07:22] VITALS: BP 133/76; RESP 18
[2016-12-20] MEDS: FUROSEMIDE 20 MG TAB PO SCH (08:17)
[2016-12-20] MEDS: morphine (ER) 15 MG TAB PO SCH ×2 (08:18→20:01)
[2016-12-20] MEDS: LABETALOL 100 MG TAB PO SCH ×3 (08:18→20:01)
[2016-12-20] MEDS: ASPIRIN 81 MG TAB PO SCH (08:18)
[2016-12-20] MEDS: GABAPENTIN 100 MG CAP PO SCH ×2 (08:19→20:00)
[2016-12-20] MEDS: NIFEdipine (XL) 60 MG TAB PO SCH (08:19)
[2016-12-20] MEDS: SEVELAMER 800 MG TAB PO SCH ×3 (08:19→17:24)
[2016-12-20] MEDS: MULTIVIT/CA CARB/B CMPLX/FA TAB PO SCH (08:19)
[2016-12-20] MEDS: FOLIC ACID 1 MG TAB PO SCH (08:20)
[2016-12-20] MEDS: TOPIRAMATE SPRINKLE 25 MG CAP PO SCH ×2 (08:20→20:00)
[2016-12-20] MEDS: HEPARIN 5,000 UNIT/0.5 ML VIAL SC SCH ×2 (08:27→21:09)
--- NOTE | 2016-12-20 10:46 | CONS ---
Date/Time of Note Date/Time of Note DATE: 12/20/16 TIME: 10:45 Assessment/Plan Assessment/Plan Additional Assessment/Plan 1. Preoperative evaluation prior to creation of AV fistula.-negative trop cx3/ NL EF by echo. No sig valve abnl. OK to proceed to OR at moderate risk without further noninvasive evaluation - vascular team follows Now with limited flow HD cath - vascular to follow- STABLE. 2. Chest pain, atypical at this time, normal ejection fraction on echo - no CP now. BETTER now. 3. Hypertension - better controlled now. Remove fluid withHd. 4. End-stage renal disease on hemodialysis - per renal team. Dr Godinez added Procardia. 5. History of migraine headaches. 6. History of multiple failed chest wall catheters likely cause the patient's intermittent chest pains.-Negative trop x3 - no CP now. 7. Edema of [id number] doppler neg for DVTow. 2. Chest pain, atypical at this time, normal ejection fraction on echo - no CP now. 3. Hypertension - better controlled now. 4. End-stage renal disease on hemodialysis - per renal team. HD as needed. 5. History of migraine headaches. 6. History of multiple failed chest wall catheters likely cause the patient's intermittent chest pains.-Negative trop x3 7. Edema of [id number] doppler neg for DVT Consultation Date/Type/Reason Admit Date/Time Dec 07, 2016 at 10:40 Type of Consultation: ID Referring Provider: JULISSA NI MD 24 HR Interval Summary Free Text/Dictation NO acute events - HD as needed. ROS: No fever, no chills, no nausea, no vomiting, no diarrhea/constipation No recent weight changes No chest pain, no PND, no orthopnea No dizziness, blurred vision No thirst, no heat or cold intolerance Exam/Review of Systems Vital Signs Vitals Vital Signs Date Time Temp Pulse Resp B/P Pulse Ox O2 Delivery O2 Flow Rate FiO2 12/20/16 07:22 98.2 76 18 133/76 99 12/16/16 08:00 Room Air Intake and Output 12/19/16 12/19/16 12/20/16 15:00 23:00 07:00 Intake Total 500 ml 1050 ml 360 ml Output Total 4000 ml Balance -3500 ml 1050 ml 360 ml Exam General: WN/WD/NAD, AOx 2-3 HEENT: Unicetric/atraumatic/EOMI (follows commands) NECK: JVD elevated, no thyromegaly Lymph: no lymphadenopathy HEART: regular with no S3, II/ systolic murmur at apex LUNGS: Coarse sounds ABD: soft, NT, ND, +BS : Intact Neuro: non focal SKIN: chronic changes EXT: trace edema Results Result Diagram: 12/18/1652812/18/16528 Medications Medications Current Medications Acetaminophen (Tylenol Tab) 650 mg Q6H PRN PO PAIN LEVEL 1-3 OR FEVER; Start 12/07/16 at 11:00 Docusate Sodium (Colace) 100 mg Q12H PRN PO CONSTIPATION Last administered on 12/11/16 14:42; Admin Dose 100 MG; Start 12/07/16 at 11:00 Magnesium Hydroxide (Milk Of Mag) 30 ml DAILY PRN PO CONSTIPATION; Start at 11:00 Bisacodyl (Dulcolax) 5 mg DAILY PRN PO CONSTIPATION Last administered on 21:26; Admin Dose 5 MG; Start 12/07/16 at 11:00 Aspirin (Aspirin) 81 mg DAILY PO Last administered on 12/20/16 08:18; Admin Dose 81 MG; Start 12/08/16 at 09:00 Furosemide (Lasix) 20 mg DAILY PO Last administered on 12/20/16 08:17; Admin Dose 20 MG; Start 12/08/16 at 09:00 Nifedipine (Procardia Xl) 60 mg DAILY PO Last administered on 12/20/16 08:19 ; Admin Dose 60 MG; Start 12/08/16 at 09:00 Topiramate (Topamax Sprinkle) 25 mg BID PO Last administered on 12/20/16 08: 20; Admin Dose 25 MG; Start 12/07/16 at 21:00 Multivit/Ca Carb/ B Cmplx/FA/Prenat (Sommer-Samantha) 1 tab DAILY PO Last administered on 12/20/16 08:19; Admin Dose 1 TAB; Start 12/09/16 at 09:00 Folic Acid (Folic Acid) 1 mg DAILY PO Last administered on 12/20/16 08:20; Admin Dose 1 MG; Start 12/09/16 at 09:00 Epoetin Zacarias (Epogen (Esrd)) 4,000 units TuThSa@17 SC Last administered on 18:18; Admin Dose 4,000 UNITS; Start 12/10/16 at 17:00 Diphenhydramine HCl (Benadryl) 25 mg Q6H PRN IV for itching Last administered on 12/20/16 06:41; Admin Dose 25 MG; Start 12/10/16 at 12:00 Clonidine (Catapres) 0.2 mg TID PO Last administered on 12/20/16 08:20; Admin Dose 0.2 MG; Start 12/11/16 at 21:00 Hydromorphone HCl (Dilaudid) 1 mg Q3H PRN IV PAIN Last administered on 09:42; Admin Dose 1 MG; Start 12/12/16 at 23:45 Morphine Sulfate (Ms Contin (Er)) 15 mg BID PO Last administered on 12/20/16 08:18; Admin Dose 15 MG; Start 12/13/16 at 09:00 Gabapentin (Neurontin) 200 mg BID PO Last administered on 12/20/16 08:19; Admin Dose 200 MG; Start 12/13/16 at 09:00 Heparin Sodium (Porcine) (Heparin (5000 Units/0.5 ml)) 5,000 unit BID SC Last administered on 12/20/16 08:27; Admin Dose 5,000 UNIT; Start 12/13/16 at 13:00 Labetalol HCl (Normodyne) 100 mg TID PO Last administered on 12/20/16 08:18; Admin Dose 100 MG; Start 12/14/16 at 09:00 Nifedipine (Procardia Xl) 30 mg HS PO Last administered on 12/19/16 20:38; Admin Dose 30 MG; Start 12/15/16 at 21:00 Hydralazine HCl (Apresoline) 10 mg Q4H PRN IV HYPERTENSION; Start 12/15/16 at 18:00 CARINA RITTER MD Dec 20, 2016 10:46
--- NOTE | 2016-12-20 12:45 | CONS ---
Date/Time of Note Date/Time of Note DATE: 12/20/16 TIME: 12:43 Assessment/Plan Assessment/Plan Chief Complaint/Hosp Course 31 Y/O with # End-stage renal disease on HD # Centrals stenosis S/P s/p Left groin catheter exchange to a Aris catheter . SP bilateral UE venograms s/p r iliac vein compression and stenosis # . Line sepsis with oxacillin sensitive Staphylococcus aureus bacteremia., repeat bld cx negative # Leukocytosis # Hyperkalemia # Hypertension, controlled. # Anemia. # History of [place] palsy. # HX Migraines # HX Multiple chest wall catheters Recs - Spoke to Dr Cody,will have bilateral lower extremity venograms to evaluate her iliac vein compression and stenosis and permacath on 12/21 - Eventually will be scheduled for fistula placement - HD m/w/f ( s/p HD yesterday) - Pain control - c/W [place] 1600 tid with meals - c/w ancef with HD - c/w epogen Problems: Consultation Date/Type/Reason Admit Date/Time Dec 07, 2016 at 10:40 Type of Consultation: Renal Referring Provider: JULISSA NI MD 24 HR Interval Summary Free Text/Dictation Pain in left knee and swelling present Exam/Review of Systems Vital Signs Vitals Vital Signs Date Time Temp Pulse Resp B/P Pulse Ox O2 Delivery O2 Flow Rate FiO2 12/20/16 07:22 98.2 76 18 133/76 99 12/16/16 08:00 Room Air Intake and Output 12/19/16 12/19/16 12/20/16 15:00 23:00 07:00 Intake Total 500 ml 1050 ml 360 ml Output Total 4000 ml Balance -3500 ml 1050 ml 360 ml Exam GENERAL: Alert and oriented x3, PULMONARY: Clear to auscultation bilaterally. CARDIOVASCULAR: S1, S2 present. ABDOMEN: Soft, nontender, nondistended. Bowel sounds positive. Truncal obesity. EXTREMITIES: Left lower extremity groin catheter intact, non-tender, erythema resolved, no purulence identified. Results Result Diagram: 12/18/1652812/18/16528 Medications Medications Current Medications Acetaminophen (Tylenol Tab) 650 mg Q6H PRN PO PAIN LEVEL 1-3 OR FEVER; Start 12/07/16 at 11:00 Docusate Sodium (Colace) 100 mg Q12H PRN PO CONSTIPATION Last administered on 12/11/16 14:42; Admin Dose 100 MG; Start 12/07/16 at 11:00 Magnesium Hydroxide (Milk Of Mag) 30 ml DAILY PRN PO CONSTIPATION; Start at 11:00 Bisacodyl (Dulcolax) 5 mg DAILY PRN PO CONSTIPATION Last administered on 21:26; Admin Dose 5 MG; Start 12/07/16 at 11:00 Aspirin (Aspirin) 81 mg DAILY PO Last administered on 12/20/16 08:18; Admin Dose 81 MG; Start 12/08/16 at 09:00 Furosemide (Lasix) 20 mg DAILY PO Last administered on 12/20/16 08:17; Admin Dose 20 MG; Start 12/08/16 at 09:00 Nifedipine (Procardia Xl) 60 mg DAILY PO Last administered on 12/20/16 08:19 ; Admin Dose 60 MG; Start 12/08/16 at 09:00 Topiramate (Topamax Sprinkle) 25 mg BID PO Last administered on 12/20/16 08: 20; Admin Dose 25 MG; Start 12/07/16 at 21:00 Multivit/Ca Carb/ B Cmplx/FA/Prenat (Sommer-Samantha) 1 tab DAILY PO Last administered on 12/20/16 08:19; Admin Dose 1 TAB; Start 12/09/16 at 09:00 Folic Acid (Folic Acid) 1 mg DAILY PO Last administered on 12/20/16 08:20; Admin Dose 1 MG; Start 12/09/16 at 09:00 Epoetin Zacarias (Epogen (Esrd)) 4,000 units TuTa@17 SC Last administered on 18:18; Admin Dose 4,000 UNITS; Start 12/10/16 at 17:00 Diphenhydramine HCl (Benadryl) 25 mg Q6H PRN IV for itching Last administered on 12/20/16 06:41; Admin Dose 25 MG; Start 12/10/16 at 12:00 Clonidine (Catapres) 0.2 mg TID PO Last administered on 12/20/16 08:20; Admin Dose 0.2 MG; Start 12/11/16 at 21:00 Hydromorphone HCl (Dilaudid) 1 mg Q3H PRN IV PAIN Last administered on 09:42; Admin Dose 1 MG; Start 12/12/16 at 23:45 Morphine Sulfate (Ms Contin (Er)) 15 mg BID PO Last administered on 12/20/16 08:18; Admin Dose 15 MG; Start 12/13/16 at 09:00 Gabapentin (Neurontin) 200 mg BID PO Last administered on 12/20/16 08:19; Admin Dose 200 MG; Start 12/13/16 at 09:00 Heparin Sodium (Porcine) (Heparin (5000 Units/0.5 ml)) 5,000 unit BID SC Last administered on 12/20/16 08:27; Admin Dose 5,000 UNIT; Start 12/13/16 at 13:00 Labetalol HCl (Normodyne) 100 mg TID PO Last administered on 12/20/16 08:18; Admin Dose 100 MG; Start 12/14/16 at 09:00 Nifedipine (Procardia Xl) 30 mg HS PO Last administered on 12/19/16 20:38; Admin Dose 30 MG; Start 12/15/16 at 21:00 Hydralazine HCl (Apresoline) 10 mg Q4H PRN IV HYPERTENSION; Start 12/15/16 at 18:00 MICHAEL LEYVA MD Dec 20, 2016 12:45
--- NOTE | 2016-12-20 13:07 | CONS ---
Date/Time of Note Date/Time of Note DATE: 12/20/16 TIME: 13:06 Consult Date/Type/Reason Admit Date/Time Dec 07, 2016 at 10:40 Type of Consultation: ID Ordering Provider: JULISSA NI MD Objective Vital Signs Date Time Temp Pulse Resp B/P Pulse Ox O2 Delivery O2 Flow Rate FiO2 12/20/16 07:22 98.2 76 18 133/76 99 12/16/16 08:00 Room Air Intake and Output 12/19/16 12/19/16 12/20/16 14:59 22:59 06:59 Intake Total 500 ml 1050 ml 360 ml Output Total 4000 ml Balance -3500 ml 1050 ml 360 ml Results/Medications Result Diagram: 12/18/1652812/18/16528 Medications Current Medications Acetaminophen (Tylenol Tab) 650 mg Q6H PRN PO PAIN LEVEL 1-3 OR FEVER; Start 12/07/16 at 11:00 Docusate Sodium (Colace) 100 mg Q12H PRN PO CONSTIPATION Last administered on 12/11/16 14:42; Admin Dose 100 MG; Start 12/07/16 at 11:00 Magnesium Hydroxide (Milk Of Mag) 30 ml DAILY PRN PO CONSTIPATION; Start at 11:00 Bisacodyl (Dulcolax) 5 mg DAILY PRN PO CONSTIPATION Last administered on 21:26; Admin Dose 5 MG; Start 12/07/16 at 11:00 Aspirin (Aspirin) 81 mg DAILY PO Last administered on 12/20/16 08:18; Admin Dose 81 MG; Start 12/08/16 at 09:00 Furosemide (Lasix) 20 mg DAILY PO Last administered on 12/20/16 08:17; Admin Dose 20 MG; Start 12/08/16 at 09:00 Nifedipine (Procardia Xl) 60 mg DAILY PO Last administered on 12/20/16 08:19 ; Admin Dose 60 MG; Start 12/08/16 at 09:00 Topiramate (Topamax Sprinkle) 25 mg BID PO Last administered on 12/20/16 08: 20; Admin Dose 25 MG; Start 12/07/16 at 21:00 Multivit/Ca Carb/ B Cmplx/FA/Prenat (Sommer-Samantha) 1 tab DAILY PO Last administered on 12/20/16 08:19; Admin Dose 1 TAB; Start 12/09/16 at 09:00 Folic Acid (Folic Acid) 1 mg DAILY PO Last administered on 12/20/16 08:20; Admin Dose 1 MG; Start 12/09/16 at 09:00 Epoetin Zacarias (Epogen (Esrd)) 4,000 units TuThSa@17 SC Last administered on 18:18; Admin Dose 4,000 UNITS; Start 12/10/16 at 17:00 Diphenhydramine HCl (Benadryl) 25 mg Q6H PRN IV for itching Last administered on 12/20/16 12:59; Admin Dose 25 MG; Start 12/10/16 at 12:00 Clonidine (Catapres) 0.2 mg TID PO Last administered on 12/20/16 12:52; Admin Dose 0.2 MG; Start 12/11/16 at 21:00 Hydromorphone HCl (Dilaudid) 1 mg Q3H PRN IV PAIN Last administered on 12:52; Admin Dose 1 MG; Start 12/12/16 at 23:45 Morphine Sulfate (Ms Contin (Er)) 15 mg BID PO Last administered on 12/20/16 08:18; Admin Dose 15 MG; Start 12/13/16 at 09:00 Gabapentin (Neurontin) 200 mg BID PO Last administered on 12/20/16 08:19; Admin Dose 200 MG; Start 12/13/16 at 09:00 Heparin Sodium (Porcine) (Heparin (5000 Units/0.5 ml)) 5,000 unit BID SC Last administered on 12/20/16 08:27; Admin Dose 5,000 UNIT; Start 12/13/16 at 13:00 Labetalol HCl (Normodyne) 100 mg TID PO Last administered on 12/20/16 12:53; Admin Dose 100 MG; Start 12/14/16 at 09:00 Nifedipine (Procardia Xl) 30 mg HS PO Last administered on 12/19/16 20:38; Admin Dose 30 MG; Start 12/15/16 at 21:00 Hydralazine HCl (Apresoline) 10 mg Q4H PRN IV HYPERTENSION; Start 11/9/17 at 18:00 Assessment/Plan Chief Complaint/Hosp Course SUBJECTIVE: No events overnight. Looks comfortable, no fevers. INDWELLINGS: R femoral Aris. MICROBIOLOGY: Blood cultures and tip culture growing oxacillin-sensitive Staphylococcus aureus. ANTIMICROBIALS: Ancef. PHYSICAL EXAMINATION: GENERAL: This is a well-developed, obese, middle-aged -[place] woman who is awake, in no distress. HEENT: Head atraumatic, normocephalic. Sclerae anicteric. Buccal mucosa dry. NECK: Supple. CHEST: Rise is symmetrical. Breath sounds diminished to bases. HEART: S1, S2. ABDOMEN: Soft. Bowel tones present. EXTREMITIES: Without cyanosis. ASSESSMENT: 1. Line sepsis with oxacillin sensitive Staphylococcus aureus bacteremia, s/p temporary aris. 2. End-stage renal disease. 3. Hypertension. 4. History of noncompliance and possible substance use. PLAN: The patient remains stable. Repeat bld cx negative, continue abx, pending permacath, vascular follows. PATR[facility] staff Problems: BILL HOFFMAN NP Dec 20, 2016 13:07
[2016-12-20 15:18] VITALS: BP 147/76; RESP 20
--- NOTE | 2016-12-20 16:19 | PN ---
Date/Time of Note Date/Time of Note DATE: 12/20/16 TIME: 16:18 Assessment/Plan VTE Prophylaxis VTE Prophylaxis Intervention: SCD's Lines/Catheters IV Catheter Type (from Nrs): Mid Line Urinary Cath still in place: No Assessment/Plan Assessment/Plan 31 yo F with ESRD on HD admitted for MSSA bacteremia from infected L groin cath , sp line exchange over guidewire. PLAN cont ancef after HD. anticipated 4-6 weeks of treatment from first negative blood culture tentative new line placement 11. for LLE swelling, sp PT eval. I have also reached out to vascular surgeon storage management consultant for further guidance Subjective 24 Hr Interval Summary Free Text/Dictation L leg swelling unchanged Exam/Review of Systems Vital Signs Vitals Vital Signs Date Time Temp Pulse Resp B/P Pulse Ox O2 Delivery O2 Flow Rate FiO2 12/20/16 15:18 98.3 74 20 147/76 97 12/16/16 08:00 Room Air Intake and Output 12/19/16 12/19/16 12/20/16 15:00 23:00 07:00 Intake Total 500 ml 1050 ml 360 ml Output Total 4000 ml Balance -3500 ml 1050 ml 360 ml Exam nad no mrg lungs clear abd soft diffuse LLE swelling Results Result Diagram: 12/18/1652812/18/16528 Medications Medications Current Medications Acetaminophen (Tylenol Tab) 650 mg Q6H PRN PO PAIN LEVEL 1-3 OR FEVER; Start 12/07/16 at 11:00 Docusate Sodium (Colace) 100 mg Q12H PRN PO CONSTIPATION Last administered on 12/11/16 14:42; Admin Dose 100 MG; Start 12/07/16 at 11:00 Magnesium Hydroxide (Milk Of Mag) 30 ml DAILY PRN PO CONSTIPATION; Start at 11:00 Bisacodyl (Dulcolax) 5 mg DAILY PRN PO CONSTIPATION Last administered on 21:26; Admin Dose 5 MG; Start 12/07/16 at 11:00 Aspirin (Aspirin) 81 mg DAILY PO Last administered on 12/20/16 08:18; Admin Dose 81 MG; Start 12/08/16 at 09:00 Furosemide (Lasix) 20 mg DAILY PO Last administered on 12/20/16 08:17; Admin Dose 20 MG; Start 12/08/16 at 09:00 Nifedipine (Procardia Xl) 60 mg DAILY PO Last administered on 12/20/16 08:19 ; Admin Dose 60 MG; Start 12/08/16 at 09:00 Topiramate (Topamax Sprinkle) 25 mg BID PO Last administered on 12/20/16 08: 20; Admin Dose 25 MG; Start 12/07/16 at 21:00 Multivit/Ca Carb/ B Cmplx/FA/Prenat (Sommer-Samantha) 1 tab DAILY PO Last administered on 12/20/16 08:19; Admin Dose 1 TAB; Start 12/09/16 at 09:00 Folic Acid (Folic Acid) 1 mg DAILY PO Last administered on 12/20/16 08:20; Admin Dose 1 MG; Start 12/09/16 at 09:00 Epoetin Zacarias (Epogen (Esrd)) 4,000 units TuThSa@17 SC Last administered on 18:18; Admin Dose 4,000 UNITS; Start 12/10/16 at 17:00 Diphenhydramine HCl (Benadryl) 25 mg Q6H PRN IV for itching Last administered on 12/20/16 12:59; Admin Dose 25 MG; Start 12/10/16 at 12:00 Clonidine (Catapres) 0.2 mg TID PO Last administered on 12/20/16 12:52; Admin Dose 0.2 MG; Start 12/11/16 at 21:00 Hydromorphone HCl (Dilaudid) 1 mg Q3H PRN IV PAIN Last administered on 12:52; Admin Dose 1 MG; Start 12/12/16 at 23:45 Morphine Sulfate (Ms Contin (Er)) 15 mg BID PO Last administered on 12/20/16 08:18; Admin Dose 15 MG; Start 12/13/16 at 09:00 Gabapentin (Neurontin) 200 mg BID PO Last administered on 12/20/16 08:19; Admin Dose 200 MG; Start 12/13/16 at 09:00 Heparin Sodium (Porcine) (Heparin (5000 Units/0.5 ml)) 5,000 unit BID SC Last administered on 12/20/16 08:27; Admin Dose 5,000 UNIT; Start 12/13/16 at 13:00 Labetalol HCl (Normodyne) 100 mg TID PO Last administered on 12/20/16 12:53; Admin Dose 100 MG; Start 12/14/16 at 09:00 Nifedipine (Procardia Xl) 30 mg HS PO Last administered on 12/19/16 20:38; Admin Dose 30 MG; Start 12/15/16 at 21:00 Hydralazine HCl (Apresoline) 10 mg Q4H PRN IV HYPERTENSION; Start 12/15/16 at 18:00 BHARAT BLACK MD Dec 20, 2016 16:19
[2016-12-20] MEDS: EPOETIN 4000 UNITS/1 ML INJ (ESRD) SC SCH (17:25)
[2016-12-20 19:35] VITALS: BP 135/78; RESP 20
[2016-12-20] MEDS: NIFEdipine (XL) 30 MG TAB PO SCH (20:06)
[2016-12-20] MEDS: HYDROmorphONE 2 MG/ML SYG IV PRN (23:09)
[2016-12-21] VITALS (18 sets, daily range): BP systolic 120–158; BP diastolic 63–97; PULSE 64–80; RESP 11–27
[2016-12-21] MEDS: HYDROmorphONE 2 MG/ML SYG IV PRN ×7 (02:25→23:54)
[2016-12-21] MEDS: DIPHENHYDRAMINE 50 MG INJ IV PRN ×2 (02:55→21:50)
[2016-12-21] MEDS: SEVELAMER 800 MG TAB PO SCH ×3 (08:15→17:44)
[2016-12-21] MEDS ORDERED: DIPHENHYDRAMINE 50 MG INJ IV ONE (08:30)
[2016-12-21] MEDS ORDERED: DIPHENHYDRAMINE 50 MG INJ IM ONE (08:30)
[2016-12-21] MEDS: LABETALOL 100 MG TAB PO SCH ×3 (09:00→20:19)
[2016-12-21] MEDS: FOLIC ACID 1 MG TAB PO SCH (09:00)
[2016-12-21] MEDS: FUROSEMIDE 20 MG TAB PO SCH (09:00)
[2016-12-21] MEDS: morphine (ER) 15 MG TAB PO SCH ×2 (09:00→20:19)
[2016-12-21] MEDS: GABAPENTIN 100 MG CAP PO SCH ×2 (09:00→20:20)
[2016-12-21] MEDS: NIFEdipine (XL) 60 MG TAB PO SCH (09:00)
[2016-12-21] MEDS: TOPIRAMATE SPRINKLE 25 MG CAP PO SCH ×2 (09:00→20:20)
[2016-12-21] MEDS: ASPIRIN 81 MG TAB PO SCH (09:00)
[2016-12-21] MEDS: MULTIVIT/CA CARB/B CMPLX/FA TAB PO SCH (09:00)
[2016-12-21] MEDS: HEPARIN 5,000 UNIT/0.5 ML VIAL SC SCH ×2 (10:16→20:26)
[2016-12-21] MEDS: CEFAZOLIN 2 GM/50 ML (PMX) 50 ML IVPB SCH (10:35)
[2016-12-21] MEDS ORDERED: IODIXANOL LOCM 100 ML BTL ONE ×2 (11:23→12:38)
[2016-12-21] MEDS ORDERED: HEPARIN 1000 UNITS/NS (A-LINE) 1,000 ML ONE (11:23)
[2016-12-21] MEDS ORDERED: LIDOCAINE 1% (MDV) 20 ML INJ ONE (11:23)
[2016-12-21] MEDS ORDERED: LIDOCAINE 2% (SDV) 5 ML INJ ONE (11:25)
[2016-12-21] MEDS ORDERED: PROPOFOL 100 ML ONE (11:25)
[2016-12-21] MEDS ORDERED: MIDAZOLAM 1 MG/ML 2 ML INJ ONE ×2 (11:26→13:43)
--- NOTE | 2016-12-21 12:19 | CONS ---
Date/Time of Note Date/Time of Note DATE: 12/21/16 TIME: Consult Date/Type/Reason Admit Date/Time Dec 07, 2016 at 10:40 Type of Consultation: ID Ordering Provider: JULISSA NI MD Objective Vital Signs Date Time Temp Pulse Resp B/P Pulse Ox O2 Delivery O2 Flow Rate FiO2 12/21/16 08:00 80 12/21/16 08:00 17 12/21/16 07:33 98.5 120/63 98 Intake and Output 12/20/16 12/20/16 12/21/16 15:00 23:00 07:00 Intake Total 400 ml Balance 400 ml Results/Medications Result Diagram: 12/18/1652812/18/16 05 Medications Current Medications Acetaminophen (Tylenol Tab) 650 mg Q6H PRN PO PAIN LEVEL 1-3 OR FEVER; Start 12/07/16 at 11:00 Docusate Sodium (Colace) 100 mg Q12H PRN PO CONSTIPATION Last administered on 12/11/16 14:42; Admin Dose 100 MG; Start 12/07/16 at 11:00 Magnesium Hydroxide (Milk Of Mag) 30 ml DAILY PRN PO CONSTIPATION; Start at 11:00 Bisacodyl (Dulcolax) 5 mg DAILY PRN PO CONSTIPATION Last administered on 21:26; Admin Dose 5 MG; Start 12/07/16 at 11:00 Aspirin (Aspirin) 81 mg DAILY PO Last administered on 12/20/16 08:18; Admin Dose 81 MG; Start 12/08/16 at 09:00 Furosemide (Lasix) 20 mg DAILY PO Last administered on 12/20/16 08:17; Admin Dose 20 MG; Start 12/08/16 at 09:00 Nifedipine (Procardia Xl) 60 mg DAILY PO Last administered on 12/20/16 08:19 ; Admin Dose 60 MG; Start 12/08/16 at 09:00 Topiramate (Topamax Sprinkle) 25 mg BID PO Last administered on 12/20/16 20: 00; Admin Dose 25 MG; Start 12/07/16 at 21:00 Multivit/Ca Carb/ B Cmplx/FA/Prenat (Sommer-Samantha) 1 tab DAILY PO Last administered on 12/20/16 08:19; Admin Dose 1 TAB; Start 12/09/16 at 09:00 Folic Acid (Folic Acid) 1 mg DAILY PO Last administered on 12/20/16 08:20; Admin Dose 1 MG; Start 12/09/16 at 09:00 Epoetin Zacarias (Epogen (Esrd)) 4,000 units TuThSa@17 SC Last administered on 17:25; Admin Dose 4,000 UNITS; Start 12/10/16 at 17:00 Diphenhydramine HCl (Benadryl) 25 mg Q6H PRN IV for itching Last administered on 12/21/16 02:55; Admin Dose 25 MG; Start 12/10/16 at 12:00 Clonidine (Catapres) 0.2 mg TID PO Last administered on 12/20/16 20:04; Admin Dose 0.2 MG; Start 12/11/16 at 21:00 Morphine Sulfate (Ms Contin (Er)) 15 mg BID PO Last administered on 12/20/16 20:01; Admin Dose 15 MG; Start 12/13/16 at 09:00 Gabapentin (Neurontin) 200 mg BID PO Last administered on 12/20/16 20:00; Admin Dose 200 MG; Start 12/13/16 at 09:00 Heparin Sodium (Porcine) (Heparin (5000 Units/0.5 ml)) 5,000 unit BID SC Last administered on 12/21/16 10:16; Admin Dose 5,000 UNIT; Start 12/13/16 at 13:00 Labetalol HCl (Normodyne) 100 mg TID PO Last administered on 12/20/16 20:01; Admin Dose 100 MG; Start 12/14/16 at 09:00 Nifedipine (Procardia Xl) 30 mg HS PO Last administered on 12/20/16 20:06; Admin Dose 30 MG; Start 12/15/16 at 21:00 Hydralazine HCl (Apresoline) 10 mg Q4H PRN IV HYPERTENSION; Start 12/15/16 at 18:00 Hydromorphone HCl (Dilaudid) 2 mg Q3H PRN IV PAIN Last administered on 09:44; Admin Dose 2 MG; Start 12/20/16 at 22:30 Assessment/Plan Chief Complaint/Hosp Course SUBJECTIVE: No events overnight. Alert, c/o itching, looks comfortable, no fevers. INDWELLINGS: L femoral Aris. MICROBIOLOGY: Blood cultures and tip culture growing oxacillin-sensitive Staphylococcus aureus. ANTIMICROBIALS: Ancef. PHYSICAL EXAMINATION: GENERAL: This is a well-developed, obese, middle-aged -[place] woman who is awake, in no distress. HEENT: Head atraumatic, normocephalic. Sclerae anicteric. Buccal mucosa dry. NECK: Supple. CHEST: Rise is symmetrical. Breath sounds diminished to bases. HEART: S1, S2. ABDOMEN: Soft. Bowel tones present. EXTREMITIES: Without cyanosis. ASSESSMENT: 1. S/p Line sepsis with oxacillin sensitive Staphylococcus aureus bacteremia, = =>R temporary aris placed 2. End-stage renal disease. 3. Hypertension. 4. History of noncompliance and possible substance use. 5. Rash ?scabies PLAN: The patient remains stable. Repeat bld cx negative, continue abx, await for permacath placement, skin scrapping for scabies. PATRICIA staff Problems: BILL HOFFMAN NP Dec 21, 2016 12:19
[2016-12-21] MEDS ORDERED: SOD CHLORIDE 0.9% 500 ML ONE (12:34)
[2016-12-21] MEDS ORDERED: HEPARIN 1000 UNITS/ML 10 ML INJ ONE (12:34)
--- NOTE | 2016-12-21 12:55 | CONS ---
Date/Time of Note Date/Time of Note DATE: 12/21/16 TIME: 12:48 Assessment/Plan Assessment/Plan Chief Complaint/Hosp Course IMPRESSION: 1. Preoperative evaluation prior to creation of AV fistula.-negative trop cx3/ NL EF by echo. No sig valve abnl. OK to proceed to OR at moderate risk without further noninvasive evaluation 2. Chest pain, atypical at this time, normal ejection fraction on echo. 3. Hypertension-uncontrolled 4. End-stage renal disease on hemodialysis. 5. History of migraine headaches. 6. History of multiple failed chest wall catheters likely cause the patient's intermittent chest pains.-Negative trop x3 7. Edema of VY-[id number] doppler neg for DVT 8. Extrinsic compression of illiac vein Recc: -Continue current anti-hypertensives with increase to procardia XL and f/u BP after receiving -HD for volume removal -Ongoing eval of assymetric LE edema -pnding AVF creation Problems: Consultation Date/Type/Reason Admit Date/Time Dec 07, 2016 at 10:40 Initial Consult Date 12/12/2016 Type of Consultation: cardiology Reason for Consultation Pre-op/HTN Referring Provider: JULISSA NI MD Exam/Review of Systems Vital Signs Vitals Vital Signs Date Time Temp Pulse Resp B/P Pulse Ox O2 Delivery O2 Flow Rate FiO2 12/21/16 08:00 80 12/21/16 08:00 17 12/21/16 07:33 98.5 120/63 98 Intake and Output 12/20/16 12/20/16 12/21/16 15:00 23:00 07:00 Intake Total 400 ml Balance 400 ml Exam Review of Systems: CONSTITUTIONAL: No fevers, chills. PULMONARY: No sob CARDIOVASCULAR: No chest pain/palpitations GASTROINTESTINAL: No nausea/vomiting. GENITOURINARY: No hematuria/dysuria. MUSCULOSKELETAL: No myagias/arthalgias. PSYCHIATRIC: The patient denies depression. NEUROLOGIC: No weakness Constitutional: alert Psych: no complaints Head: normocephalic ENMT: mucosa pink and moist Neck: supple Respiratory: diminished breath sounds (at bases/B) Cardiovascular: regular rate and rhythm Gastrointestinal: non-tender, soft Musculoskeletal: muscle weakness (generalized) Extremities: pitting pedal edema (bilateral LE) Neurological: other Results Result Diagram: 12/18/16 0529 12/18/16528 Medications Medications Current Medications Acetaminophen (Tylenol Tab) 650 mg Q6H PRN PO PAIN LEVEL 1-3 OR FEVER; Start 12/07/16 at 11:00 Docusate Sodium (Colace) 100 mg Q12H PRN PO CONSTIPATION Last administered on 12/11/16 14:42; Admin Dose 100 MG; Start 12/07/16 at 11:00 Magnesium Hydroxide (Milk Of Mag) 30 ml DAILY PRN PO CONSTIPATION; Start at 11:00 Bisacodyl (Dulcolax) 5 mg DAILY PRN PO CONSTIPATION Last administered on 21:26; Admin Dose 5 MG; Start 12/07/16 at 11:00 Aspirin (Aspirin) 81 mg DAILY PO Last administered on 12/20/16 08:18; Admin Dose 81 MG; Start 12/08/16 at 09:00 Furosemide (Lasix) 20 mg DAILY PO Last administered on 12/20/16 08:17; Admin Dose 20 MG; Start 12/08/16 at 09:00 Nifedipine (Procardia Xl) 60 mg DAILY PO Last administered on 12/20/16 08:19 ; Admin Dose 60 MG; Start 12/08/16 at 09:00 Topiramate (Topamax Sprinkle) 25 mg BID PO Last administered on 12/20/16 20: 00; Admin Dose 25 MG; Start 12/07/16 at 21:00 Multivit/Ca Carb/ B Cmplx/FA/Prenat (Sommer-Samantha) 1 tab DAILY PO Last administered on 12/20/16 08:19; Admin Dose 1 TAB; Start 12/09/16 at 09:00 Folic Acid (Folic Acid) 1 mg DAILY PO Last administered on 12/20/16 08:20; Admin Dose 1 MG; Start 12/09/16 at 09:00 Epoetin Zacarias (Epogen (Esrd)) 4,000 units TuThSa@17 SC Last administered on 17:25; Admin Dose 4,000 UNITS; Start 12/10/16 at 17:00 Diphenhydramine HCl (Benadryl) 25 mg Q6H PRN IV for itching Last administered on 12/21/16 02:55; Admin Dose 25 MG; Start 12/10/16 at 12:00 Clonidine (Catapres) 0.2 mg TID PO Last administered on 12/20/16 20:04; Admin Dose 0.2 MG; Start 12/11/16 at 21:00 Morphine Sulfate (Ms Contin (Er)) 15 mg BID PO Last administered on 12/20/16 20:01; Admin Dose 15 MG; Start 12/13/16 at 09:00 Gabapentin (Neurontin) 200 mg BID PO Last administered on 12/20/16 20:00; Admin Dose 200 MG; Start 12/13/16 at 09:00 Heparin Sodium (Porcine) (Heparin (5000 Units/0.5 ml)) 5,000 unit BID SC Last administered on 12/21/16 10:16; Admin Dose 5,000 UNIT; Start 12/13/16 at 13:00 Labetalol HCl (Normodyne) 100 mg TID PO Last administered on 12/20/16 20:01; Admin Dose 100 MG; Start 12/14/16 at 09:00 Nifedipine (Procardia Xl) 30 mg HS PO Last administered on 12/20/16 20:06; Admin Dose 30 MG; Start 12/15/16 at 21:00 Hydralazine HCl (Apresoline) 10 mg Q4H PRN IV HYPERTENSION; Start 12/15/16 at 18:00 Hydromorphone HCl (Dilaudid) 2 mg Q3H PRN IV PAIN Last administered on 09:44; Admin Dose 2 MG; Start 12/20/16 at 22:30 ETHAN MCKINLEY 15, 2017 12:55
--- NOTE | 2016-12-21 13:04 | PN ---
Date/Time of Note Date/Time of Note DATE: 12/21/16 TIME: 12:59 Assessment/Plan VTE Prophylaxis VTE Prophylaxis Intervention: SCD's Lines/Catheters IV Catheter Type (from Nrsg): jennifer cath Urinary Cath still in place: No Assessment/Plan Assessment/Plan 31 yo F with ESRD on HD admitted for MSSA bacteremia from infected L groin cath , sp line exchange over guidewire. PLAN cont ancef after HD. talked to ID ANIMAL SCIENCE PROFESSOR, she advised 2 weeks of therapy from new line placement today tentative new line placement TODAY for LLE swelling, sp PT eval. I have also reached out to vascular surgeon method consultant for further guidance-->he asserts this is likely due to fibrosis, compression noted on imaging -management as per vascular Spoke to CM, she is making sure pt's HD center can do the Ancef with HD Subjective 24 Hr Interval Summary Free Text/Dictation Pt seen very briefly en route to procedure Exam/Review of Systems Vital Signs Vitals Vital Signs Date Time Temp Pulse Resp B/P Pulse Ox O2 Delivery O2 Flow Rate FiO2 12/21/16 08:00 80 12/21/16 08:00 17 12/21/16 07:33 98.5 120/63 98 Intake and Output 12/20/16 12/20/16 12/21/16 15:00 23:00 07:00 Intake Total 400 ml Balance 400 ml Exam nad laying in bed no mrg lungs clear abd soft LE swelling unchanged Results Result Diagram: 12/18/1652812/18/16528 Medications Medications Current Medications Acetaminophen (Tylenol Tab) 650 mg Q6H PRN PO PAIN LEVEL 1-3 OR FEVER; Start 12/07/16 at 11:00 Docusate Sodium (Colace) 100 mg Q12H PRN PO CONSTIPATION Last administered on 12/11/16 14:42; Admin Dose 100 MG; Start 12/07/16 at 11:00 Magnesium Hydroxide (Milk Of Mag) 30 ml DAILY PRN PO CONSTIPATION; Start at 11:00 Bisacodyl (Dulcolax) 5 mg DAILY PRN PO CONSTIPATION Last administered on 21:26; Admin Dose 5 MG; Start 12/07/16 at 11:00 Aspirin (Aspirin) 81 mg DAILY PO Last administered on 12/20/16 08:18; Admin Dose 81 MG; Start 12/08/16 at 09:00 Furosemide (Lasix) 20 mg DAILY PO Last administered on 12/20/16 08:17; Admin Dose 20 MG; Start 12/08/16 at 09:00 Nifedipine (Procardia Xl) 60 mg DAILY PO Last administered on 12/20/16 08:19 ; Admin Dose 60 MG; Start 12/08/16 at 09:00 Topiramate (Topamax Sprinkle) 25 mg BID PO Last administered on 12/20/16 20: 00; Admin Dose 25 MG; Start 12/07/16 at 21:00 Multivit/Ca Carb/ B Cmplx/FA/Prenat (Sommer-Samantha) 1 tab DAILY PO Last administered on 12/20/16 08:19; Admin Dose 1 TAB; Start 12/09/16 at 09:00 Folic Acid (Folic Acid) 1 mg DAILY PO Last administered on 12/20/16 08:20; Admin Dose 1 MG; Start 12/09/16 at 09:00 Epoetin Zacarias (Epogen (Esrd)) 4,000 units TuThSa@17 SC Last administered on 17:25; Admin Dose 4,000 UNITS; Start 12/10/16 at 17:00 Diphenhydramine HCl (Benadryl) 25 mg Q6H PRN IV for itching Last administered on 12/21/16 02:55; Admin Dose 25 MG; Start 12/10/16 at 12:00 Clonidine (Catapres) 0.2 mg TID PO Last administered on 12/20/16 20:04; Admin Dose 0.2 MG; Start 12/11/16 at 21:00 Morphine Sulfate (Ms Contin (Er)) 15 mg BID PO Last administered on 12/20/16 20:01; Admin Dose 15 MG; Start 12/13/16 at 09:00 Gabapentin (Neurontin) 200 mg BID PO Last administered on 12/20/16 20:00; Admin Dose 200 MG; Start 12/13/16 at 09:00 Heparin Sodium (Porcine) (Heparin (5000 Units/0.5 ml)) 5,000 unit BID SC Last administered on 12/21/16 10:16; Admin Dose 5,000 UNIT; Start 12/13/16 at 13:00 Labetalol HCl (Normodyne) 100 mg TID PO Last administered on 12/20/16 20:01; Admin Dose 100 MG; Start 12/14/16 at 09:00 Nifedipine (Procardia Xl) 30 mg HS PO Last administered on 12/20/16 20:06; Admin Dose 30 MG; Start 12/15/16 at 21:00 Hydralazine HCl (Apresoline) 10 mg Q4H PRN IV HYPERTENSION; Start 12/15/16 at 18:00 Hydromorphone HCl (Dilaudid) 2 mg Q3H PRN IV PAIN Last administered on 09:44; Admin Dose 2 MG; Start 12/20/16 at 22:30 BHARAT BLACK MD Dec 21, 2016 13:04
[2016-12-21] MEDS ORDERED: HYDROmorphONE (0.2 MG/ML) 10ML SYG IV ONE (13:43)
--- NOTE | 2016-12-21 13:57 | SIPON ---
Date/Time of Note Date/Time of Note DATE: 12/21/16 TIME: 13:45 Operative Report Preoperative Diagnosis ESRD Postoperative Diagnosis ESRD, LEFT COMMON ILIAC, EXTERNAL ILIAC VEIN STENOSIS/OCCLUSION Operation/Procedure Performed CENTRAL VENOGRAM LEFT COMMON ILIAC VEIN, EXTERNAL ILIAC VEIN VENOPLASTY IVUS-BILATERAL LEFT CIV, EIV, CFV LEFT CFV PERMANENT CATHETER PLACEMENT Surgeon see signature line operations administrative assistant NONE Anesthesia: moderate sedation Estimated blood loss: 0 - 10 ml's Transfusion Required none Specimen NONE Grafts/Implants none Complications none JULISSA NI MD Dec 21, 2016 13:56
[2016-12-21] MEDS ORDERED: DIPHENHYDRAMINE 50 MG INJ IV PRN (14:00)
[2016-12-21] MEDS ORDERED: MIDAZOLAM 1 MG/ML 2 ML INJ IV PRN (14:00)
[2016-12-21] MEDS ORDERED: HYDROmorphONE (0.2 MG/ML) 10ML SYG IV PRN ×3 (14:00)
[2016-12-21] MEDS ORDERED: METOCLOPRAMIDE 10 MG INJ IV PRN (14:00)
[2016-12-21] MEDS ORDERED: KETOROLAC 30 MG INJ IV PRN (14:00)
[2016-12-21] MEDS ORDERED: ONDANSETRON 4 MG INJ IV PRN (14:00)
[2016-12-21] MEDS ORDERED: LABETALOL HCL 20MG INJ IV PRN (14:00)
[2016-12-21] MEDS ORDERED: FENTAnyl 50 MCG/ML VIAL IV PRN ×3 (14:00)
[2016-12-21] MEDS ORDERED: hydrALAzine 20 MG INJ IV PRN (14:00)
[2016-12-21] MEDS ORDERED: EPHEDrine SULFATE 50 MG/5 ML SYG IV PRN (14:00)
[2016-12-21] MEDS ORDERED: LORAZEPAM 2 MG INJ IV PRN (14:00)
[2016-12-21] MEDS ORDERED: MEPERIDINE 25 MG INJ IV PRN (14:00)
[2016-12-21] MEDS ORDERED: OXYCODONE/ACETAMINOPHEN (5/325) TAB PO PRN ×2 (14:00)
--- NOTE | 2016-12-21 14:02 | CONS ---
Date/Time of Note Date/Time of Note DATE: 12/21/16 TIME: 14:00 Assessment/Plan Assessment/Plan Chief Complaint/Hosp Course 31 Y/O with # End-stage renal disease on HD # Centrals stenosis S/P s/p Left groin catheter exchange to a Aris catheter . SP bilateral UE venograms s/p r iliac vein compression and stenosis # . Line sepsis with oxacillin sensitive Staphylococcus aureus bacteremia., repeat bld cx negative # Leukocytosis # Hyperkalemia # Hypertension, controlled. # Anemia. # History of Otto palsy. # HX Migraines # HX Multiple chest wall catheters Recs - OR today - Eventually will be scheduled for fistula placement - HD m/w/f s/p Hd this am - Pain control - c/W [place] 1600 tid with meals - c/w ancef with HD - c/w epogen Problems: Consultation Date/Type/Reason Admit Date/Time Dec 07, 2016 at 10:40 Type of Consultation: Renal Referring Provider: JULISSA NI MD 24 HR Interval Summary Free Text/Dictation Pt went to OR today HD in am Exam/Review of Systems Vital Signs Vitals Vital Signs Date Time Temp Pulse Resp B/P Pulse Ox O2 Delivery O2 Flow Rate FiO2 12/21/16 08:00 80 12/21/16 08:00 17 12/21/16 07:33 98.5 120/63 98 Intake and Output 12/20/16 12/20/16 12/21/16 15:00 23:00 07:00 Intake Total 400 ml Balance 400 ml Exam Not seen as went to OR Results Result Diagram: 12/18/16 0529 12/18/16528 Medications Medications Current Medications Acetaminophen (Tylenol Tab) 650 mg Q6H PRN PO PAIN LEVEL 1-3 OR FEVER; Start 12/07/16 at 11:00 Docusate Sodium (Colace) 100 mg Q12H PRN PO CONSTIPATION Last administered on 12/11/16 14:42; Admin Dose 100 MG; Start 12/07/16 at 11:00 Magnesium Hydroxide (Milk Of Mag) 30 ml DAILY PRN PO CONSTIPATION; Start at 11:00 Bisacodyl (Dulcolax) 5 mg DAILY PRN PO CONSTIPATION Last administered on 21:26; Admin Dose 5 MG; Start 12/07/16 at 11:00 Aspirin (Aspirin) 81 mg DAILY PO Last administered on 12/20/16 08:18; Admin Dose 81 MG; Start 12/08/16 at 09:00 Furosemide (Lasix) 20 mg DAILY PO Last administered on 12/20/16 08:17; Admin Dose 20 MG; Start 12/08/16 at 09:00 Nifedipine (Procardia Xl) 60 mg DAILY PO Last administered on 12/20/16 08:19 ; Admin Dose 60 MG; Start 12/08/16 at 09:00 Topiramate (Topamax Sprinkle) 25 mg BID PO Last administered on 12/20/16 20: 00; Admin Dose 25 MG; Start 12/07/16 at 21:00 Multivit/Ca Carb/ B Cmplx/FA/Prenat (Sommer-Samantha) 1 tab DAILY PO Last administered on 12/20/16 08:19; Admin Dose 1 TAB; Start 12/09/16 at 09:00 Folic Acid (Folic Acid) 1 mg DAILY PO Last administered on 12/20/16 08:20; Admin Dose 1 MG; Start 12/09/16 at 09:00 Epoetin Zacarias (Epogen (Esrd)) 4,000 units TuThSa@17 SC Last administered on 17:25; Admin Dose 4,000 UNITS; Start 12/10/16 at 17:00 Diphenhydramine HCl (Benadryl) 25 mg Q6H PRN IV for itching Last administered on 12/21/16 02:55; Admin Dose 25 MG; Start 12/10/16 at 12:00 Clonidine (Catapres) 0.2 mg TID PO Last administered on 12/20/16 20:04; Admin Dose 0.2 MG; Start 12/11/16 at 21:00 Morphine Sulfate (Ms Contin (Er)) 15 mg BID PO Last administered on 12/20/16 20:01; Admin Dose 15 MG; Start 12/13/16 at 09:00 Gabapentin (Neurontin) 200 mg BID PO Last administered on 12/20/16 20:00; Admin Dose 200 MG; Start 12/13/16 at 09:00 Heparin Sodium (Porcine) (Heparin (5000 Units/0.5 ml)) 5,000 unit BID SC Last administered on 12/21/16 10:16; Admin Dose 5,000 UNIT; Start 12/13/16 at 13:00 Labetalol HCl (Normodyne) 100 mg TID PO Last administered on 12/20/16 20:01; Admin Dose 100 MG; Start 12/14/16 at 09:00 Nifedipine (Procardia Xl) 30 mg HS PO Last administered on 12/20/16 20:06; Admin Dose 30 MG; Start 12/15/16 at 21:00 Hydralazine HCl (Apresoline) 10 mg Q4H PRN IV HYPERTENSION; Start 12/15/16 at 18:00 Hydromorphone HCl (Dilaudid) 2 mg Q3H PRN IV PAIN Last administered on 09:44; Admin Dose 2 MG; Start 12/20/16 at 22:30 MICHAEL LEYVA MD Dec 21, 2016 14:02
[2016-12-21] MEDS ORDERED: APIX2.5T PO (14:45)
--- NOTE | 2016-12-21 18:57 | OPR ---
DATE OF OPERATION: 12/21/2016 SURGEON: Julissa Grimes MD PREOPERATIVE DIAGNOSES: End-stage renal disease, left external iliac stenosis, left common iliac st enosis. POSTOPERATIVE DIAGNOSES: Left iliocaval stenosis and chronic thrombus. ANESTHESIA: Moderate sedation with local. ESTIMATED BLOOD LOSS: Minimal. COMPLICATIONS: None. HEPARIN: 5000 units intravenously. CONTRAST: As recorded. ACCESS: Right common femoral vein 5-Lao sheath. Left common femoral vein 9-Lao sheath. CLOSURE: Manual compression for the right. On the left, 3-0 Vicryl suture and skin marco. INDICATIONS: This is a 31-year-old female with a long-standing history of end-stage renal disease a nd iliocaval stenosis and central stenosis in which she has undergone multiple chest wall catheter p lacements and fistula creations that have failed. As of recent, the patient has had multiple groin catheter placements and was admitted to the hospital secondary to bacteremia, with a workup for poss ible groin catheter infection. Subsequently, the patient's perm catheter was removed in which she h ad developed cellulitis and drainage around the catheter and a new Aris catheter was placed. She has been managed with her antibiotics and essentially bacteremia has resolved and the recent blood cultures were negative. Further, the perm catheter insertion site has healed well and no more purul ence or erythema or induration has been identified. Upon our previous intervention from perm cathet er removal, a venogram was performed which identified the patient having severe stenosis of the exte rnal common femoral vein, left external iliac vein and left common iliac vein with the likelihood of thrombus. Therefore, discussing the risks, benefits and alternatives with the patient, risks inclu ding, but not limited to, bleeding, infection, thrombosis, embolization, myocardial infarction, deat h, stroke, device malfunction, nephrotoxicity, and the patient has agreed to proceed. We have discu ssed with the patient regarding venoplasty, stenting and possible thrombectomy. PROCEDURES: 1. Ultrasound-guided access of the right common femoral vein. 2. Bilateral lower extremity venogram. 3. Inferior vena cava venogram. 4. Introduction of catheter into the inferior vena cava. 5. Intravascular ultrasound of the right common femoral vein, right external iliac vein, right comm on iliac vein. 6. Intravascular ultrasound of the left common femoral vein, left external iliac vein, left common iliac vein. 7. Intravascular ultrasound of the inferior vena cava. 8. Venoplasty of the left common femoral vein, external iliac vein, common iliac vein using 8 x 60 mm balloon, 10 x 40 mm balloon, 12 x 40 mm balloon, respectively. 9. Placement of a new left common femoral vein permanent hemodialysis catheter. FINDINGS: Occluded left common femoral vein, occluded left external iliac vein, moderate stenosis o f the proximal left common iliac vein, patent distal left common iliac vein, patent inferior vena ca va. Upon intravascular ultrasound, it was identified the patient having severe fibrosis, webbing and thr ombus with calcification that appeared to be chronic in nature of the common femoral vein throughout the external iliac vein and eventual partial patency of the proximal left common iliac vein and the n patent distal common iliac vein. There was also thrombus within the distalmost aspect of the infe rior vena cava. Right common femoral vein patent. Right external iliac vein patent. Right common iliac vein patent . DESCRIPTION OF PROCEDURE: The patient was brought into the angio suite and positioned in the supine position on the fluoroscopic table. Bony prominences were appropriately padded. Sedation was admi nistered without any complications. Anesthesia was involved with monitoring the patient's vitals. Bilateral groins were then prepped, shaved and draped in the usual standard sterile fashion. Timeou t and appropriate sites were marked and confirmed. Local anesthesia was also infiltrated in the reg ion of the bilateral common femoral veins. At this point, the right common femoral vein was cannula [place] using a micro access needle under ultrasound guidance, and a guidewire was advanced into the com mon iliac vein under fluoroscopic guidance. The needle was then removed, and a microcatheter was pl aced. Bentson wire was then passed into the inferior vena cava under fluoroscopic guidance, followe d by a short 5-Lao sheath over the wire. Next, using the venous port, a Bentson wire was passed into the inferior vena cava and the left Aris catheter was removed over the wire. At this point, there was no backbleeding identified from the puncture site and, therefore, a 9-Lao sheath was p laced over the wire. Both sheaths were appropriately flushed with heparinized saline solution. A l eft lower extremity venogram and inferior vena cavagram were performed and findings are noted above. It was identified the patient having occlusion of the left external iliac vein and collaterals caitlyn t developed that drained the blood flow into the left internal iliac vein which eventually drained t o the left common iliac vein. Further, the patient had no adequate flow through her common femoral vein. At this point, it seemed that the patient would require further intervention in order to prov darian adequate flow through her iliac system. Therefore, a venogram of the right lower extremity was also performed which demonstrated adequate flow through the iliac system. Using intravascular ultra sound, we were able to identify the areas and diameters of the segments of the right and left venous systems. The right common femoral artery area measured 83 mm2 and diameter of 12 mm. The right ex ternal iliac vein measured 101 mm2 for area and diameter of 13 mm. The right common iliac vein dejah ured area of about 77.2 mm and diameter of 12 mm. The inferior vena cava had chronic thrombus withi n it with calcification, fibrosis and webbing and measured 25 mm in its proximal aspect. With the l eft common femoral vein, there was extensive chronic thrombus and measured about 32 mm2 for area and diameter of 6.4 mm. With the external iliac vein, there was also clot with minimal recanalized vei n with calcification, webbing and fibrosis, area measured about 50 mm2 and diameter was 8 mm. The l eft common iliac vein, the proximal aspect measured 101 mm2 for area and diameter of 15.4. Based on these findings, we determined that the patient's left iliac vein is severely stenosed and has chron ic thrombus within it which we will plan to put the patient on anticoagulation. In the meantime, th e patient was given 5000 units intravenously and in a sequential manner, we ended up using 8 x 60 mm , then 10 x 40 mm, 12 x 40 mm, respectively, in the segments of the left common femoral vein, program engineer al iliac vein and common iliac vein. A post-intervention venogram identified the patient having ad equate flow through the venous system and we also had backbleeding from our puncture site which was a new finding. At this point, we determined that intervention was adequate and we would go ahead an d place the left perm catheter. A new site was designated, and a skin stab incision was made in lef t lateral upper thigh. Using a hemodialysis tunneler, the catheter was tunneled towards the groin p uncture site. Once this was performed, the previous sheath was removed, and sequential dilators wer e used to adequately dilated the tract. At this point, using our peel-away sheath that was placed o julien the wire, the wire and the inner dilator were removed. The perm catheter was then placed via th e peel-away sheath in the appropriate position. Fluoroscopy was performed throughout this process, and the catheter was in satisfactory position. Both venous and arterial ports of the hemodialysis c atheter were checked and appropriately flushed. At this point, the right groin dressing change was placed. Of the left lower extremity, heparin was placed in each port after appropriate heparinized saline irrigation. Our puncture site in the groin where the previous Aris catheter was placed wa s closed with 3-0 Vicryl suture in the dermal layer and skin marco were applied. The patient nanci rated this aspect of the procedure well and was taken to the postanesthesia care unit in stable cond ition. PLAN: The patient may have her left groin perm catheter used. The patient did not want a new chest wall catheter. Upper extremity fistula created at this time. Will plan to schedule the patient to follow up with us as an outpatient and will schedule her for creation of a new access in the upper extremity. Further, we will plan to start the patient on anticoagulation as the patient had thrombu s around the common femoral vein, external iliac vein, common iliac vein and in the distal aspect of the inferior vena cava, so suggestion of possible hypocoagulable state given her history versus sig nificant amount of fibrin that may have developed and cause the thrombosis. This information was discussed with the primary service. Dictated By: JULISSA ZUÑIGA/BRADLEY Conf#: [id number] DID#: [id number] CC: Stephy Brian;*EndCC*
[2016-12-21] MEDS: NIFEdipine (XL) 30 MG TAB PO SCH (20:20)
[2016-12-22 02:40] VITALS: BP 125/70; RESP 18
[2016-12-22] MEDS: HYDROmorphONE 2 MG/ML SYG IV PRN ×6 (02:56→21:31)
[2016-12-22] MEDS: DIPHENHYDRAMINE 50 MG INJ IV PRN ×3 (04:15→17:39)
[2016-12-22 07:46] VITALS: BP 128/72; RESP 18
[2016-12-22] MEDS: morphine (ER) 15 MG TAB PO SCH ×2 (09:00→20:15)
[2016-12-22 10:18] LABS: CALCIUM 8.8 mg/dl (8.4-10.2); CREATININE 9.21 mg/dl (0.44-1.00); POTASSIUM 4.7 mmol/L (3.5-5.1)
[2016-12-22] MEDS: SEVELAMER 800 MG TAB PO SCH ×3 (10:24→17:23)
[2016-12-22] MEDS: ASPIRIN 81 MG TAB PO SCH (10:25)
[2016-12-22] MEDS: FUROSEMIDE 20 MG TAB PO SCH (10:25)
[2016-12-22] MEDS: FOLIC ACID 1 MG TAB PO SCH (10:25)
[2016-12-22] MEDS: LABETALOL 100 MG TAB PO SCH ×3 (10:26→20:15)
[2016-12-22] MEDS: GABAPENTIN 100 MG CAP PO SCH ×2 (10:26→20:16)
[2016-12-22] MEDS: NIFEdipine (XL) 60 MG TAB PO SCH (10:26)
[2016-12-22] MEDS: MULTIVIT/CA CARB/B CMPLX/FA TAB PO SCH (10:26)
[2016-12-22] MEDS: TOPIRAMATE SPRINKLE 25 MG CAP PO SCH ×2 (10:27→20:15)
[2016-12-22] MEDS: HEPARIN 5,000 UNIT/0.5 ML VIAL SC SCH ×2 (10:34→20:41)
--- NOTE | 2016-12-22 13:20 | CONS ---
Date/Time of Note Date/Time of Note DATE: 12/22/16 TIME: 13:17 Assessment/Plan Assessment/Plan Chief Complaint/Hosp Course IMPRESSION: 1. Preoperative evaluation prior to creation of AV fistula.-negative trop cx3/ NL EF by echo. No sig valve abnl. OK to proceed to OR at moderate risk without further noninvasive evaluation 2. Chest pain, atypical at this time, normal ejection fraction on echo. 3. Hypertension-uncontrolled 4. End-stage renal disease on hemodialysis. 5. History of migraine headaches. 6. History of multiple failed chest wall catheters likely cause the patient's intermittent chest pains.-Negative trop x3 7. Edema of [id number] doppler neg for DVT 8. Extrinsic compression of illiac vein Recc: -Continue current anti-hypertensivesand follow BP clsoely -HD for volume removal -pnding AVF creation Problems: Consultation Date/Type/Reason Admit Date/Time Dec 07, 2016 at 10:40 Initial Consult Date 12/12/2016 Type of Consultation: cardiology Reason for Consultation HTN Referring Provider: JULISSA NI MD Exam/Review of Systems Vital Signs Vitals Vital Signs Date Time Temp Pulse Resp B/P Pulse Ox O2 Delivery O2 Flow Rate FiO2 12/22/16 07:46 99.0 79 18 128/72 100 12/21/16 14:15 Nasal Cannula 12/21/16 14:03 3.0 Intake and Output 12/21/16 12/21/16 12/22/16 15:00 23:00 07:00 Intake Total 550 ml 240 ml 300 ml Output Total 4000 ml Balance -3450 ml 240 ml 300 ml Exam Review of Systems: CONSTITUTIONAL: No fevers, chills. PULMONARY: mild sob CARDIOVASCULAR: No chest pain/palpitations GASTROINTESTINAL: No nausea/vomiting. GENITOURINARY: No hematuria/dysuria. MUSCULOSKELETAL: No myagias/arthalgias. PSYCHIATRIC: The patient denies depression. NEUROLOGIC: No weakness Constitutional: alert, oriented Psych: no complaints Head: normocephalic ENMT: mucosa pink and moist Neck: jvd (9 cm water), supple Respiratory: diminished breath sounds (at bases/B) Cardiovascular: regular rate and rhythm Gastrointestinal: non-tender, soft Musculoskeletal: muscle tone (normal) Extremities: pitting pedal edema (bilateral LE) Neurological: other (No focal deficits) Results Result Diagram: 12/18/16 0529 12/22/16 0901 Results 24 hrs Laboratory Tests Test 12/22/16 09:01 Sodium Level 139 Potassium Level 4.7 Chloride Level 100 Carbon Dioxide Level 27 Anion Gap 17 H Blood Urea Nitrogen 48 H Creatinine 9.21 H Glucose Level 104 Calcium Level 8.8 Medications Medications Current Medications Acetaminophen (Tylenol Tab) 650 mg Q6H PRN PO PAIN LEVEL 1-3 OR FEVER; Start 12/07/16 at 11:00 Docusate Sodium (Colace) 100 mg Q12H PRN PO CONSTIPATION Last administered on 12/11/16 14:42; Admin Dose 100 MG; Start 12/07/16 at 11:00 Magnesium Hydroxide (Milk Of Mag) 30 ml DAILY PRN PO CONSTIPATION; Start at 11:00 Bisacodyl (Dulcolax) 5 mg DAILY PRN PO CONSTIPATION Last administered on 21:26; Admin Dose 5 MG; Start 12/07/16 at 11:00 Aspirin (Aspirin) 81 mg DAILY PO Last administered on 12/22/16 10:25; Admin Dose 81 MG; Start 12/08/16 at 09:00 Furosemide (Lasix) 20 mg DAILY PO Last administered on 12/22/16 10:25; Admin Dose 20 MG; Start 12/08/16 at 09:00 Nifedipine (Procardia Xl) 60 mg DAILY PO Last administered on 12/22/16 10:26 ; Admin Dose 60 MG; Start 12/08/16 at 09:00 Topiramate (Topamax Sprinkle) 25 mg BID PO Last administered on 12/22/16 10: 27; Admin Dose 25 MG; Start 12/07/16 at 21:00 Multivit/Ca Carb/ B Cmplx/FA/Prenat (Sommer-Samantha) 1 tab DAILY PO Last administered on 12/22/16 10:26; Admin Dose 1 TAB; Start 12/09/16 at 09:00 Folic Acid (Folic Acid) 1 mg DAILY PO Last administered on 12/22/16 10:25; Admin Dose 1 MG; Start 12/09/16 at 09:00 Epoetin Zacarias (Epogen (Esrd)) 4,000 units TuThSa@17 SC Last administered on 17:25; Admin Dose 4,000 UNITS; Start 12/10/16 at 17:00 Diphenhydramine HCl (Benadryl) 25 mg Q6H PRN IV for itching Last administered on 12/22/16 10:27; Admin Dose 25 MG; Start 12/10/16 at 12:00 Clonidine (Catapres) 0.2 mg TID PO Last administered on 12/22/16 10:25; Admin Dose 0.2 MG; Start 12/11/16 at 21:00 Morphine Sulfate (Ms Contin (Er)) 15 mg BID PO Last administered on 12/21/16 20:19; Admin Dose 15 MG; Start 12/13/16 at 09:00 Gabapentin (Neurontin) 200 mg BID PO Last administered on 12/22/16 10:26; Admin Dose 200 MG; Start 12/13/16 at 09:00 Heparin Sodium (Porcine) (Heparin (5000 Units/0.5 ml)) 5,000 unit BID SC Last administered on 12/22/16 10:34; Admin Dose 5,000 UNIT; Start 12/13/16 at 13:00 Labetalol HCl (Normodyne) 100 mg TID PO Last administered on 12/22/16 10:26; Admin Dose 100 MG; Start 12/14/16 at 09:00 Nifedipine (Procardia Xl) 30 mg HS PO Last administered on 12/21/16 20:20; Admin Dose 30 MG; Start 12/15/16 at 21:00 Hydralazine HCl (Apresoline) 10 mg Q4H PRN IV HYPERTENSION; Start 12/15/16 at 18:00 Hydromorphone HCl (Dilaudid) 2 mg Q3H PRN IV PAIN Last administered on 10:27; Admin Dose 2 MG; Start 12/20/16 at 22:30 ETHAN MCKINLEY 16, 2017 13:20
[2016-12-22 13:30] VITALS: BP 124/73; PULSE 82; RESP 18
--- NOTE | 2016-12-22 13:35 | CONS ---
Date/Time of Note Date/Time of Note DATE: 12/22/16 TIME: 13:34 Consult Date/Type/Reason Admit Date/Time Dec 07, 2016 at 10:40 Type of Consultation: id Ordering Provider: JULISSA NI MD Objective Vital Signs Date Time Temp Pulse Resp B/P Pulse Ox O2 Delivery O2 Flow Rate FiO2 12/22/16 13:30 82 18 124/73 Room Air 12/22/16 07:46 99.0 100 12/21/16 14:03 3.0 Intake and Output 12/21/16 12/21/16 12/22/16 14:59 22:59 06:59 Intake Total 550 ml 240 ml 300 ml Output Total 4000 ml Balance -3450 ml 240 ml 300 ml Results/Medications Result Diagram: 12/18/16 0512/22/16 0901 Results 24 hrs Laboratory Tests Test 12/22/16 09:01 Sodium Level 139 Potassium Level 4.7 Chloride Level 100 Carbon Dioxide Level 27 Anion Gap 17 H Blood Urea Nitrogen 48 H Creatinine 9.21 H Glucose Level 104 Calcium Level 8.8 Medications Current Medications Acetaminophen (Tylenol Tab) 650 mg Q6H PRN PO PAIN LEVEL 1-3 OR FEVER; Start 12/07/16 at 11:00 Docusate Sodium (Colace) 100 mg Q12H PRN PO CONSTIPATION Last administered on 12/11/16 14:42; Admin Dose 100 MG; Start 12/07/16 at 11:00 Magnesium Hydroxide (Milk Of Mag) 30 ml DAILY PRN PO CONSTIPATION; Start at 11:00 Bisacodyl (Dulcolax) 5 mg DAILY PRN PO CONSTIPATION Last administered on 21:26; Admin Dose 5 MG; Start 12/07/16 at 11:00 Aspirin (Aspirin) 81 mg DAILY PO Last administered on 12/22/16 10:25; Admin Dose 81 MG; Start 12/08/16 at 09:00 Furosemide (Lasix) 20 mg DAILY PO Last administered on 12/22/16 10:25; Admin Dose 20 MG; Start 12/08/16 at 09:00 Nifedipine (Procardia Xl) 60 mg DAILY PO Last administered on 12/22/16 10:26 ; Admin Dose 60 MG; Start 12/08/16 at 09:00 Topiramate (Topamax Sprinkle) 25 mg BID PO Last administered on 12/22/16 10: 27; Admin Dose 25 MG; Start 12/07/16 at 21:00 Multivit/Ca Carb/ B Cmplx/FA/Prenat (Sommer-Samantha) 1 tab DAILY PO Last administered on 12/22/16 10:26; Admin Dose 1 TAB; Start 12/09/16 at 09:00 Folic Acid (Folic Acid) 1 mg DAILY PO Last administered on 12/22/16 10:25; Admin Dose 1 MG; Start 12/09/16 at 09:00 Epoetin Zacarias (Epogen (Esrd)) 4,000 units TuThSa@17 SC Last administered on 17:25; Admin Dose 4,000 UNITS; Start 12/10/16 at 17:00 Diphenhydramine HCl (Benadryl) 25 mg Q6H PRN IV for itching Last administered on 12/22/16 10:27; Admin Dose 25 MG; Start 12/10/16 at 12:00 Clonidine (Catapres) 0.2 mg TID PO Last administered on 12/22/16 13:28; Admin Dose 0.2 MG; Start 12/11/16 at 21:00 Morphine Sulfate (Ms Contin (Er)) 15 mg BID PO Last administered on 12/21/16 20:19; Admin Dose 15 MG; Start 12/13/16 at 09:00 Gabapentin (Neurontin) 200 mg BID PO Last administered on 12/22/16 10:26; Admin Dose 200 MG; Start 12/13/16 at 09:00 Heparin Sodium (Porcine) (Heparin (5000 Units/0.5 ml)) 5,000 unit BID SC Last administered on 12/22/16 10:34; Admin Dose 5,000 UNIT; Start 12/13/16 at 13:00 Labetalol HCl (Normodyne) 100 mg TID PO Last administered on 12/22/16 13:28; Admin Dose 100 MG; Start 12/14/16 at 09:00 Nifedipine (Procardia Xl) 30 mg HS PO Last administered on 12/21/16 20:20; Admin Dose 30 MG; Start 12/15/16 at 21:00 Hydralazine HCl (Apresoline) 10 mg Q4H PRN IV HYPERTENSION; Start 12/15/16 at 18:00 Hydromorphone HCl (Dilaudid) 2 mg Q3H PRN IV PAIN Last administered on t 13:29; Admin Dose 2 MG; Start 12/20/16 at 22:30 Assessment/Plan Chief Complaint/Hosp Course SUBJECTIVE: No events overnight. Alert, looks comfortable, no fevers. INDWELLINGS: L femoral Aris. MICROBIOLOGY: Blood cultures and tip culture growing oxacillin-sensitive Staphylococcus aureus. ANTIMICROBIALS: Ancef. PHYSICAL EXAMINATION: GENERAL: This is a well-developed, obese, middle-aged -[place] woman who is awake, in no distress. HEENT: Head atraumatic, normocephalic. Sclerae anicteric. Buccal mucosa dry. NECK: Supple. CHEST: Rise is symmetrical. Breath sounds diminished to bases. HEART: S1, S2. ABDOMEN: Soft. Bowel tones present. EXTREMITIES: Without cyanosis. ASSESSMENT: 1. S/p Line sepsis with oxacillin sensitive Staphylococcus aureus bacteremia, = =>R temporary aris placed 2. End-stage renal disease. 3. Hypertension. 4. History of noncompliance and possible substance use. 5. Rash ?scabies PLAN: The patient remains stable. Repeat bld cx negative, continue abx, await for permacath placement, skin scrapping for scabies. PATRICIA staff Problems: BILL HOFFMAN NP Dec 22, 2016 13:35
[2016-12-22 14:20] VITALS: BP 130/77; RESP 18
--- NOTE | 2016-12-22 15:50 | PN ---
Date/Time of Note Date/Time of Note DATE: 12/22/16 TIME: 15:49 Assessment/Plan VTE Prophylaxis VTE Prophylaxis Intervention: SCD's Lines/Catheters IV Catheter Type (from Nrsg): Mid line Urinary Cath still in place: No Assessment/Plan Assessment/Plan 31 yo F with ESRD on HD admitted for MSSA bacteremia from infected L groin cath , sp line exchange over guidewire. and now sp new permacath placement 12.21 PLAN cont ancef after HD. talked to ID H[employer]AN [employer] TEAM MEMBER, she advised 2 weeks of therapy from new line placement 12.21 spoke to pain records management director, no new pain meds to be rx'ed at discharge vascular surgeon discussed pt's LLE swelling with her ATC rx'ed as per vascular rec Spoke to CM, she is making sure pt's HD center can do the Ancef with HD anticipate discharge in AM Subjective 24 Hr Interval Summary Free Text/Dictation Doesn't want to leave yet Exam/Review of Systems Vital Signs Vitals Vital Signs Date Time Temp Pulse Resp B/P Pulse Ox O2 Delivery O2 Flow Rate FiO2 12/22/16 14:20 98.6 75 18 130/77 99 12/22/16 13:30 Room Air 12/21/16 14:03 3.0 Intake and Output 12/21/16 12/21/16 12/22/16 15:00 23:00 07:00 Intake Total 550 ml 240 ml 300 ml Output Total 4000 ml Balance -3450 ml 240 ml 300 ml Exam nad, first sitting up in bed crying, later was sleeping no mrg lungs clear abd soft L leg swelling unchanged Results Result Diagram: 12/18/16 0529 12/22/16 0901 Results 24 hrs Laboratory Tests Test 12/22/16 09:01 Sodium Level 139 Potassium Level 4.7 Chloride Level 100 Carbon Dioxide Level 27 Anion Gap 17 H Blood Urea Nitrogen 48 H Creatinine 9.21 H Glucose Level 104 Calcium Level 8.8 Medications Medications Current Medications Acetaminophen (Tylenol Tab) 650 mg Q6H PRN PO PAIN LEVEL 1-3 OR FEVER; Start 12/07/16 at 11:00 Docusate Sodium (Colace) 100 mg Q12H PRN PO CONSTIPATION Last administered on 12/11/16t 14:42; Admin Dose 100 MG; Start 12/07/16 at 11:00 Magnesium Hydroxide (Milk Of Mag) 30 ml DAILY PRN PO CONSTIPATION; Start at 11:00 Bisacodyl (Dulcolax) 5 mg DAILY PRN PO CONSTIPATION Last administered on 21:26; Admin Dose 5 MG; Start 12/07/16 at 11:00 Aspirin (Aspirin) 81 mg DAILY PO Last administered on 12/22/16 10:25; Admin Dose 81 MG; Start 12/08/16 at 09:00 Furosemide (Lasix) 20 mg DAILY PO Last administered on 12/22/16 10:25; Admin Dose 20 MG; Start 12/08/16 at 09:00 Nifedipine (Procardia Xl) 60 mg DAILY PO Last administered on 12/22/16 10:26 ; Admin Dose 60 MG; Start 12/08/16 at 09:00 Topiramate (Topamax Sprinkle) 25 mg BID PO Last administered on 12/22/16 10: 27; Admin Dose 25 MG; Start 12/07/16 at 21:00 Multivit/Ca Carb/ B Cmplx/FA/Prenat (Sommer-Samantha) 1 tab DAILY PO Last administered on 12/22/16 10:26; Admin Dose 1 TAB; Start 12/09/16 at 09:00 Folic Acid (Folic Acid) 1 mg DAILY PO Last administered on 12/22/16 10:25; Admin Dose 1 MG; Start 12/09/16 at 09:00 Epoetin Zacarias (Epogen (Esrd)) 4,000 units TuThSa@17 SC Last administered on 17:25; Admin Dose 4,000 UNITS; Start 12/10/16 at 17:00 Diphenhydramine HCl (Benadryl) 25 mg Q6H PRN IV for itching Last administered on 12/22/16 10:27; Admin Dose 25 MG; Start 12/10/16 at 12:00 Clonidine (Catapres) 0.2 mg TID PO Last administered on 12/22/16 13:28; Admin Dose 0.2 MG; Start 12/11/16 at 21:00 Morphine Sulfate (Ms Contin (Er)) 15 mg BID PO Last administered on 12/21/16 20:19; Admin Dose 15 MG; Start 12/13/16 at 09:00 Gabapentin (Neurontin) 200 mg BID PO Last administered on 12/22/16 10:26; Admin Dose 200 MG; Start 12/13/16 at 09:00 Heparin Sodium (Porcine) (Heparin (5000 Units/0.5 ml)) 5,000 unit BID SC Last administered on 12/22/16 10:34; Admin Dose 5,000 UNIT; Start 12/13/16 at 13:00 Labetalol HCl (Normodyne) 100 mg TID PO Last administered on 12/22/16 13:28; Admin Dose 100 MG; Start 12/14/16 at 09:00 Nifedipine (Procardia Xl) 30 mg HS PO Last administered on 12/21/16 20:20; Admin Dose 30 MG; Start 12/15/16 at 21:00 Hydralazine HCl (Apresoline) 10 mg Q4H PRN IV HYPERTENSION; Start 12/15/16 at 18:00 Hydromorphone HCl (Dilaudid) 2 mg Q3H PRN IV PAIN Last administered on 13:29; Admin Dose 2 MG; Start 12/20/16 at 22:30 BHARAT BLACK MD Dec 22, 2016 15:50
[2016-12-22] MEDS ORDERED: [UNRECOGNIZED DRUG - CODE] IVPB (15:58)
[2016-12-22] MEDS: EPOETIN 4000 UNITS/1 ML INJ (ESRD) SC SCH (17:24)
--- NOTE | 2016-12-22 17:26 | CONS ---
Date/Time of Note Date/Time of Note DATE: 12/22/16 TIME: 17:25 Assessment/Plan Assessment/Plan Chief Complaint/Hosp Course 31 Y/O with # End-stage renal disease on HD # Centrals stenosis S/P s/p Left groin catheter exchange to a Aris catheter . SP bilateral UE venograms s/p r iliac vein compression and stenosis # . Line sepsis with oxacillin sensitive Staphylococcus aureus bacteremia., repeat bld cx negative # Leukocytosis # Hyperkalemia # Hypertension, controlled. # Anemia. # History of [place] palsy. # HX Migraines # HX Multiple chest wall catheters Recs - HD tmw - Eventually will be scheduled for fistula placement - HD m/w/f - Pain control - c/W [place] 1600 tid with meals - c/w ancef with HD - c/w epogen Problems: Consultation Date/Type/Reason Admit Date/Time Dec 07, 2016 at 10:40 Type of Consultation: Renal Referring Provider: JULISSA NI MD 24 HR Interval Summary Free Text/Dictation Pain in left leg Due for HD tmw Exam/Review of Systems Vital Signs Vitals Vital Signs Date Time Temp Pulse Resp B/P Pulse Ox O2 Delivery O2 Flow Rate FiO2 12/22/16 14:20 98.6 75 18 130/77 99 12/22/16 13:30 Room Air 12/21/16 14:03 3.0 Intake and Output 12/21/16 12/21/16 12/22/16 15:00 23:00 07:00 Intake Total 550 ml 240 ml 300 ml Output Total 4000 ml Balance -3450 ml 240 ml 300 ml Exam GENERAL: Alert and oriented x3, PULMONARY: Clear to auscultation bilaterally. CARDIOVASCULAR: S1, S2 present. ABDOMEN: Soft, nontender, nondistended. Bowel sounds positive. Truncal obesity. EXTREMITIES: Left lower extremity groin catheter intact, non-tender, erythema resolved, no purulence identified. Results Result Diagram: 12/18/16 0529 12/22/16 09 Results 24 hrs Laboratory Tests Test 12/22/16 09:01 Sodium Level 139 Potassium Level 4.7 Chloride Level 100 Carbon Dioxide Level 27 Anion Gap 17 H Blood Urea Nitrogen 48 H Creatinine 9.21 H Glucose Level 104 Calcium Level 8.8 Medications Medications Current Medications Acetaminophen (Tylenol Tab) 650 mg Q6H PRN PO PAIN LEVEL 1-3 OR FEVER; Start 12/07/16 at 11:00 Docusate Sodium (Colace) 100 mg Q12H PRN PO CONSTIPATION Last administered on 12/11/16 14:42; Admin Dose 100 MG; Start 12/07/16 at 11:00 Magnesium Hydroxide (Milk Of Mag) 30 ml DAILY PRN PO CONSTIPATION; Start at 11:00 Bisacodyl (Dulcolax) 5 mg DAILY PRN PO CONSTIPATION Last administered on 21:26; Admin Dose 5 MG; Start 12/07/16 at 11:00 Aspirin (Aspirin) 81 mg DAILY PO Last administered on 12/22/16 10:25; Admin Dose 81 MG; Start 12/08/16 at 09:00 Furosemide (Lasix) 20 mg DAILY PO Last administered on 12/22/16 10:25; Admin Dose 20 MG; Start 12/08/16 at 09:00 Nifedipine (Procardia Xl) 60 mg DAILY PO Last administered on 12/22/16 10:26 ; Admin Dose 60 MG; Start 12/08/16 at 09:00 Topiramate (Topamax Sprinkle) 25 mg BID PO Last administered on 12/22/16 10: 27; Admin Dose 25 MG; Start 12/07/16 at 21:00 Multivit/Ca Carb/ B Cmplx/FA/Prenat (Sommer-Samantha) 1 tab DAILY PO Last administered on 12/22/16 10:26; Admin Dose 1 TAB; Start 12/09/16 at 09:00 Folic Acid (Folic Acid) 1 mg DAILY PO Last administered on 12/22/16 10:25; Admin Dose 1 MG; Start 12/09/16 at 09:00 Epoetin Zacarias (Epogen (Esrd)) 4,000 units TuThSa@17 SC Last administered on 17:25; Admin Dose 4,000 UNITS; Start 12/10/16 at 17:00 Diphenhydramine HCl (Benadryl) 25 mg Q6H PRN IV for itching Last administered on 12/22/16 10:27; Admin Dose 25 MG; Start 12/10/16 at 12:00 Clonidine (Catapres) 0.2 mg TID PO Last administered on 12/22/16 13:28; Admin Dose 0.2 MG; Start 12/11/16 at 21:00 Morphine Sulfate (Ms Contin (Er)) 15 mg BID PO Last administered on 12/21/16 20:19; Admin Dose 15 MG; Start 12/13/16 at 09:00 Gabapentin (Neurontin) 200 mg BID PO Last administered on 12/22/16 10:26; Admin Dose 200 MG; Start 12/13/16 at 09:00 Heparin Sodium (Porcine) (Heparin (5000 Units/0.5 ml)) 5,000 unit BID SC Last administered on 12/22/16 10:34; Admin Dose 5,000 UNIT; Start 12/13/16 at 13:00 Labetalol HCl (Normodyne) 100 mg TID PO Last administered on 12/22/16 13:28; Admin Dose 100 MG; Start 12/14/16 at 09:00 Nifedipine (Procardia Xl) 30 mg HS PO Last administered on 12/21/16 20:20; Admin Dose 30 MG; Start 12/15/16 at 21:00 Hydralazine HCl (Apresoline) 10 mg Q4H PRN IV HYPERTENSION; Start 12/15/16 at 18:00 Hydromorphone HCl (Dilaudid) 2 mg Q3H PRN IV PAIN Last administered on 13:29; Admin Dose 2 MG; Start 12/20/16 at 22:30 MICHAEL LEYVA MD Dec 22, 2016 17:26
--- NOTE | 2016-12-22 18:00 | PN ---
Date/Time of Note Date/Time of Note DATE: 12/22/16 TIME: 17:56 Assessment/Plan Lines/Catheters IV Catheter Type (from [facility]): Mid line [place] in Place (from [facility]): No Assessment/Plan Chief Complaint/Hosp Course -Endstage renal disease and central stenosis: It seems the patient has had a longstanding history of multiple chest wall catheters and fistula creations in which have all failed. There is a strong suggestion that patient has central occlusion/stenosis in which she would need to be further evaluated for possible creation of new advanced fistula. -S/P Left groin catheter exchange to a Aris catheter -S/P bilateral UE venograms -S/P Left CIV, EIV, CFV venoplasty and venograms -Thrombus identified within the iliac vein and IVC _ recommend anticoagulation with Eliquis for now -Arrange for Hematology evaluation as outpt -D/C planning PT/OT and OOB FWB -Keep LE elevated while at rest, apply bryce wrap for comfort -Optimize vascular status (BP meds, diet, nutrition, exercise, sugar control, anti-platelets). -Discussed findings, plan and management with the patient and she understands. -Thank you for allowing us to partake in the care of your patient. Please call with any questions. Problems: Subjective 24 Hr Interval Summary no new vascular events overnight, LLE swelling improved, OOB Exam/Review of Systems Vital Signs Vitals Vital Signs Date Time Temp Pulse Resp B/P Pulse Ox O2 Delivery O2 Flow Rate FiO2 12/22/16 14:20 98.6 75 18 130/77 99 12/22/16 13:30 Room Air 12/21/16 14:03 3.0 Intake and Output 12/21/16 12/21/16 12/22/16 15:00 23:00 07:00 Intake Total 550 ml 240 ml 300 ml Output Total 4000 ml Balance -3450 ml 240 ml 300 ml Exam Free Text/Dictation GENERAL: Alert and oriented x3, PULMONARY: Clear to auscultation bilaterally. CARDIOVASCULAR: S1, S2 present. ABDOMEN: Soft, nontender, nondistended. Bowel sounds positive. Truncal obesity. EXTREMITIES: Right lower extremity palpable femoral pulse, faint pedal pulse. Motor, sensory intact. Cap refill 2 to 3 seconds. Left lower extremity new perm catheter intact, marco intact and dry, non- tender,. Palpable femoral pulse, faint pedal pulse. Motor, sensory intact. edema 2+ Results Result Diagram: 12/18/16 0529 12/22/16 0901 JULISSA NI MD Dec 22, 2016 18:00
[2016-12-22 19:30] VITALS: BP 158/82; RESP 20
[2016-12-22] MEDS: NIFEdipine (XL) 30 MG TAB PO SCH (20:16)
[2016-12-22] MEDS: DOCUSATE SODIUM 100 MG CAP PO PRN (20:26)
[2016-12-23] VITALS (10 sets, daily range): BP systolic 107–163; BP diastolic 55–83; PULSE 79–83; RESP 18–20
[2016-12-23] MEDS: HYDROmorphONE 2 MG/ML SYG IV PRN ×4 (00:28→15:09)
[2016-12-23] MEDS: DIPHENHYDRAMINE 50 MG INJ IV PRN ×2 (00:28→07:10)
--- NOTE | 2016-12-23 08:11 | PN ---
Date/Time of Note Date/Time of Note DATE: 12/23/16 TIME: 08:08 Assessment/Plan Lines/Catheters IV Catheter Type (from Nrs): Mid Line Sheppard in Place (from [facility]): No Assessment/Plan Chief Complaint/Hosp Course -Endstage renal disease and central stenosis: It seems the patient has had a longstanding history of multiple chest wall catheters and fistula creations in which have all failed. Venogram identified central stenosis/occlusion -S/P Left groin catheter exchange to a Aris catheter -S/P bilateral UE venograms -S/P Left CIV, EIV, CFV venoplasty and venograms -Thrombus identified within the iliac vein and IVC - recommend anticoagulation with Eliquis for now (patient was placed on anticoagulation in the past, unclear if shes had hypercoagulable workup given her age) -Arrange for Hematology evaluation as outpt -D/C planning -PT/OT and OOB FWB -Keep LE elevated while at rest, apply bryce wrap for comfort -Optimize vascular status (BP meds, diet, nutrition, exercise, sugar control, anti-platelets). -Discussed findings, plan and management with the patient and she understands. -Thank you for allowing us to partake in the care of your patient. Please call with any questions. Problems: Subjective 24 Hr Interval Summary no new vascular events overnight , patient trying to be OOB and ambulate, does seek more than the usual pain medication for her current symptoms Exam/Review of Systems Vital Signs Vitals Vital Signs Date Time Temp Pulse Resp B/P Pulse Ox O2 Delivery O2 Flow Rate FiO2 12/23/16 07:51 98.9 82 18 163/69 95 12/22/16 13:30 Room Air 12/21/16 14:03 3.0 Intake and Output 12/22/16 12/22/16 12/23/16 15:00 23:00 07:00 Intake Total 760 ml 240 ml Balance 760 ml 240 ml Exam Free Text/Dictation GENERAL: Alert and oriented x3, PULMONARY: Clear to auscultation bilaterally. CARDIOVASCULAR: S1, S2 present. ABDOMEN: Soft, nontender, nondistended. Bowel sounds positive. Truncal obesity. EXTREMITIES: Right lower extremity palpable femoral pulse, faint pedal pulse. Motor, sensory intact. Cap refill 2 to 3 seconds. Left lower extremity new perm catheter intact, marco intact and dry, non- tender, Palpable femoral pulse, faint pedal pulse. Motor, sensory intact. edema 2+ Permanent catheter intact Results Result Diagram: 12/22/16 0901 JULISSA NI MD Dec 23, 2016 08:11
[2016-12-23] MEDS: LABETALOL 100 MG TAB PO SCH ×2 (09:00→13:00)
[2016-12-23] MEDS: FUROSEMIDE 20 MG TAB PO SCH (09:00)
[2016-12-23] MEDS: NIFEdipine (XL) 60 MG TAB PO SCH (09:00)
--- NOTE | 2016-12-23 10:06 | CONS ---
Date/Time of Note Date/Time of Note DATE: 12/23/16 TIME: 10:03 Assessment/Plan Assessment/Plan Chief Complaint/Hosp Course IMPRESSION: 1. Preoperative evaluation prior to creation of AV fistula.-negative trop cx3/ NL EF by echo. No sig valve abnl. OK to proceed to OR at moderate risk without further noninvasive evaluation 2. Chest pain, atypical at this time, normal ejection fraction on echo. 3. Hypertension-uncontrolled 4. End-stage renal disease on hemodialysis. 5. History of migraine headaches. 6. History of multiple failed chest wall catheters likely cause the patient's intermittent chest pains.-Negative trop x3 7. Edema of [id number] doppler neg for DVT 8. Extrinsic compression of illiac vein Recc: -Continue current anti-hypertensives with procardia and labetelol and follow BP closely -HD for volume removal -pnding AVF creation Problems: Consultation Date/Type/Reason Admit Date/Time Dec 07, 2016 at 10:40 Initial Consult Date 12/12/2016 Type of Consultation: cardiology Reason for Consultation HTN Referring Provider: JULISSA NI MD Exam/Review of Systems Vital Signs Vitals Vital Signs Date Time Temp Pulse Resp B/P Pulse Ox O2 Delivery O2 Flow Rate FiO2 12/23/16 07:51 98.9 82 18 163/69 95 12/22/16 13:30 Room Air 12/21/16 14:03 3.0 Intake and Output 12/22/16 12/22/16 12/23/16 15:00 23:00 07:00 Intake Total 760 ml 240 ml Balance 760 ml 240 ml Exam Review of Systems: CONSTITUTIONAL: No fevers, chills. PULMONARY: No sob CARDIOVASCULAR: No chest pain/palpitations GASTROINTESTINAL: No nausea/vomiting. GENITOURINARY: No hematuria/dysuria. MUSCULOSKELETAL: No myagias/arthalgias. PSYCHIATRIC: The patient denies depression. NEUROLOGIC: No weakness Constitutional: alert, oriented Psych: no complaints Head: normocephalic ENMT: mucosa pink and moist Neck: jvd (90), supple Respiratory: diminished breath sounds Cardiovascular: regular rate and rhythm Gastrointestinal: non-tender, soft Musculoskeletal: muscle tone (normal) Extremities: edema (none) Neurological: other (No focal deficits) Results Result Diagram: 12/22/16 0901 Medications Medications Current Medications Acetaminophen (Tylenol Tab) 650 mg Q6H PRN PO PAIN LEVEL 1-3 OR FEVER; Start 12/07/16 at 11:00 Docusate Sodium (Colace) 100 mg Q12H PRN PO CONSTIPATION Last administered on 12/22/16 20:26; Admin Dose 100 MG; Start 12/07/16 at 11:00 Magnesium Hydroxide (Milk Of Mag) 30 ml DAILY PRN PO CONSTIPATION Last administered on 12/22/16 20:26; Admin Dose 30 ML; Start 12/07/16 at 11:00 Bisacodyl (Dulcolax) 5 mg DAILY PRN PO CONSTIPATION Last administered on 21:26; Admin Dose 5 MG; Start 12/07/16 at 11:00 Aspirin (Aspirin) 81 mg DAILY PO Last administered on 12/22/16 10:25; Admin Dose 81 MG; Start 12/08/16 at 09:00 Furosemide (Lasix) 20 mg DAILY PO Last administered on 12/22/16 10:25; Admin Dose 20 MG; Start 12/08/16 at 09:00 Nifedipine (Procardia Xl) 60 mg DAILY PO Last administered on 12/22/16 10:26 ; Admin Dose 60 MG; Start 12/08/16 at 09:00 Topiramate (Topamax Sprinkle) 25 mg BID PO Last administered on 12/22/16 20: 15; Admin Dose 25 MG; Start 12/07/16 at 21:00 Multivit/Ca Carb/ B Cmplx/FA/Prenat (Sommer-Samantha) 1 tab DAILY PO Last administered on 12/22/16 10:26; Admin Dose 1 TAB; Start 12/09/16 at 09:00 Folic Acid (Folic Acid) 1 mg DAILY PO Last administered on 12/22/16 10:25; Admin Dose 1 MG; Start 12/09/16 at 09:00 Epoetin Zacarias (Epogen (Esrd)) 4,000 units TuThSa@17 SC Last administered on 17:24; Admin Dose 4,000 UNITS; Start 12/10/16 at 17:00 Diphenhydramine HCl (Benadryl) 25 mg Q6H PRN IV for itching Last administered on 12/23/16 07:10; Admin Dose 25 MG; Start 12/10/16 at 12:00 Clonidine (Catapres) 0.2 mg TID PO Last administered on 12/22/16 20:16; Admin Dose 0.2 MG; Start 12/11/16 at 21:00 Morphine Sulfate (Ms Contin (Er)) 15 mg BID PO Last administered on 12/22/16 20:15; Admin Dose 15 MG; Start 12/13/16 at 09:00 Gabapentin (Neurontin) 200 mg BID PO Last administered on 12/22/16 20:16; Admin Dose 200 MG; Start 12/13/16 at 09:00 Heparin Sodium (Porcine) (Heparin (5000 Units/0.5 ml)) 5,000 unit BID SC Last administered on 12/22/16 20:41; Admin Dose 5,000 UNIT; Start 12/13/16 at 13:00 Labetalol HCl (Normodyne) 100 mg TID PO Last administered on 12/22/16 20:15; Admin Dose 100 MG; Start 12/14/16 at 09:00 Nifedipine (Procardia Xl) 30 mg HS PO Last administered on 12/22/16 20:16; Admin Dose 30 MG; Start 12/15/16 at 21:00 Hydralazine HCl (Apresoline) 10 mg Q4H PRN IV HYPERTENSION; Start 12/15/16 at 18:00 Hydromorphone HCl (Dilaudid) 2 mg Q3H PRN IV PAIN Last administered on 09:13; Admin Dose 2 MG; Start 12/20/16 at 22:30 ETHAN MCKINLEY 17, 2017 10:06
[2016-12-23] MEDS: MULTIVIT/CA CARB/B CMPLX/FA TAB PO SCH (10:52)
[2016-12-23] MEDS: TOPIRAMATE SPRINKLE 25 MG CAP PO SCH (10:52)
[2016-12-23] MEDS: FOLIC ACID 1 MG TAB PO SCH (10:52)
[2016-12-23] MEDS: morphine (ER) 15 MG TAB PO SCH (10:52)
[2016-12-23] MEDS: GABAPENTIN 100 MG CAP PO SCH (10:53)
[2016-12-23] MEDS: SEVELAMER 800 MG TAB PO SCH ×2 (10:53→12:15)
[2016-12-23] MEDS ORDERED: DIPHENHYDRAMINE 50 MG INJ IV PRN (11:25)
[2016-12-23] MEDS ORDERED: ALTEPLASE (CATHFLO) 2 MG INJ CATHETER SCH (11:30)
[2016-12-23] MEDS: ASPIRIN 81 MG TAB PO SCH (11:35)
[2016-12-23] MEDS ORDERED: WARFARIN 5 MG TAB PO SCH (12:00)
[2016-12-23] MEDS ORDERED: ENOXAPARIN 100 MG/ML SYG SC SCH (12:00)
[2016-12-23] MEDS ORDERED: ENOX100D2 SC (12:03)
[2016-12-23] MEDS ORDERED: COU5 PO (12:03)
--- NOTE | 2016-12-23 12:57 | CONS ---
Date/Time of Note Date/Time of Note DATE: 12/23/16 TIME: 12:56 Assessment/Plan Assessment/Plan Chief Complaint/Hosp Course 1. End-stage renal disease. 2. SIRS with leukocytosis, resolved. 3. LOWER EX EDEMA, better 4. Hypertension, controlled. 5. PERMACATH RELATED INFECTION WITH BACTEREMIA. 6. Anemia. 7. History of [place] palsy. 8. aNEMIA Problems: Additional Assessment/Plan 1. continue HD 2. TREATMENT OF aNEMIA PER PRIMAry team Consultation Date/Type/Reason Admit Date/Time Dec 07, 2016 at 10:40 Initial Consult Date 12/07/2016 Type of Consultation: nephrology Reason for Consultation Dr Knox Referring Provider: JULISSA NI MD Exam/Review of Systems Vital Signs Vitals Vital Signs Date Time Temp Pulse Resp B/P Pulse Ox O2 Delivery O2 Flow Rate FiO2 12/23/16 07:51 98.9 82 18 163/69 95 12/22/16 13:30 Room Air 12/21/16 14:03 3.0 Intake and Output 12/22/16 12/22/16 12/23/16 14:59 22:59 06:59 Intake Total 760 ml 240 ml Balance 760 ml 240 ml Exam Constitutional: alert, oriented Respiratory: clear to auscultation Cardiovascular: regular rate and rhythm Results Result Diagram: 12/22/16 0901 Medications Medications Current Medications Acetaminophen (Tylenol Tab) 650 mg Q6H PRN PO PAIN LEVEL 1-3 OR FEVER; Start 12/07/16 at 11:00 Docusate Sodium (Colace) 100 mg Q12H PRN PO CONSTIPATION Last administered on 12/22/16 20:26; Admin Dose 100 MG; Start 12/07/16 at 11:00 Magnesium Hydroxide (Milk Of Mag) 30 ml DAILY PRN PO CONSTIPATION Last administered on 12/22/16 20:26; Admin Dose 30 ML; Start 12/07/16 at 11:00 Bisacodyl (Dulcolax) 5 mg DAILY PRN PO CONSTIPATION Last administered on 21:26; Admin Dose 5 MG; Start 12/07/16 at 11:00 Aspirin (Aspirin) 81 mg DAILY PO Last administered on 12/23/16 11:35; Admin Dose 81 MG; Start 12/08/16 at 09:00 Furosemide (Lasix) 20 mg DAILY PO Last administered on 12/22/16 10:25; Admin Dose 20 MG; Start 12/08/16 at 09:00 Nifedipine (Procardia Xl) 60 mg DAILY PO Last administered on 12/22/16 10:26 ; Admin Dose 60 MG; Start 12/08/16 at 09:00 Topiramate (Topamax Sprinkle) 25 mg BID PO Last administered on 12/23/16 10: 52; Admin Dose 25 MG; Start 12/07/16 at 21:00 Multivit/Ca Carb/ B Cmplx/FA/Prenat (Sommer-Samantha) 1 tab DAILY PO Last administered on 12/23/16 10:52; Admin Dose 1 TAB; Start 12/09/16 at 09:00 Folic Acid (Folic Acid) 1 mg DAILY PO Last administered on 12/23/16 10:52; Admin Dose 1 MG; Start 12/09/16 at 09:00 Epoetin Zacarias (Epogen (Esrd)) 4,000 units TuThSa@17 SC Last administered on 17:24; Admin Dose 4,000 UNITS; Start 12/10/16 at 17:00 Diphenhydramine HCl (Benadryl) 25 mg Q6H PRN IV for itching Last administered on 12/23/16 07:10; Admin Dose 25 MG; Start 12/10/16 at 12:00 Clonidine (Catapres) 0.2 mg TID PO Last administered on 12/22/16 20:16; Admin Dose 0.2 MG; Start 12/11/16 at 21:00 Morphine Sulfate (Ms Contin (Er)) 15 mg BID PO Last administered on 12/23/16 10:52; Admin Dose 15 MG; Start 12/13/16 at 09:00 Gabapentin (Neurontin) 200 mg BID PO Last administered on 12/23/16 10:53; Admin Dose 200 MG; Start 12/13/16 at 09:00 Labetalol HCl (Normodyne) 100 mg TID PO Last administered on 12/22/16 20:15; Admin Dose 100 MG; Start 12/14/16 at 09:00 Nifedipine (Procardia Xl) 30 mg HS PO Last administered on 12/22/16 20:16; Admin Dose 30 MG; Start 12/15/16 at 21:00 Hydralazine HCl (Apresoline) 10 mg Q4H PRN IV HYPERTENSION; Start 12/15/16 at 18:00 Hydromorphone HCl (Dilaudid) 2 mg Q3H PRN IV PAIN Last administered on 09:13; Admin Dose 2 MG; Start 12/20/16 at 22:30 Alteplase, Recombinant (Cathflo (Activase)) 2 mg ONCE CATHETER Last administered on 12/23/16 12:03; Admin Dose 2 MG; Start 12/23/16 at 11:30; Stop 12/24/16 at 11:31 Warfarin Sodium (Coumadin) 5 mg DAILY@17 PO ; Start 12/23/16 at 12:00 Enoxaparin Sodium (Lovenox) 90 mg Q24H SC ; Start 12/23/16 at 12:00 MANI PRECIADO Dec 23, 2016 12:57
--- NOTE | 2016-12-23 14:18 | CONS ---
Date/Time of Note Date/Time of Note DATE: 12/23/16 TIME: 14:16 Consult Date/Type/Reason Admit Date/Time Dec 07, 2016 at 10:40 Type of Consultation: ID Ordering Provider: JULISSA NI MD Objective Vital Signs Date Time Temp Pulse Resp B/P Pulse Ox O2 Delivery O2 Flow Rate FiO2 12/23/16 13:54 98.7 97 20 123/73 98 12/22/16 13:30 Room Air 12/21/16 14:03 3.0 Intake and Output 12/22/16 12/22/16 12/23/16 14:59 22:59 06:59 Intake Total 760 ml 240 ml Balance 760 ml 240 ml Results/Medications Result Diagram: 12/22/16 0901 Medications Current Medications Acetaminophen (Tylenol Tab) 650 mg Q6H PRN PO PAIN LEVEL 1-3 OR FEVER; Start 12/07/16 at 11:00 Docusate Sodium (Colace) 100 mg Q12H PRN PO CONSTIPATION Last administered on 12/22/16 20:26; Admin Dose 100 MG; Start 12/07/16 at 11:00 Magnesium Hydroxide (Milk Of Mag) 30 ml DAILY PRN PO CONSTIPATION Last administered on 12/22/16 20:26; Admin Dose 30 ML; Start 12/07/16 at 11:00 Bisacodyl (Dulcolax) 5 mg DAILY PRN PO CONSTIPATION Last administered on 21:26; Admin Dose 5 MG; Start 12/07/16 at 11:00 Aspirin (Aspirin) 81 mg DAILY PO Last administered on 12/23/16 11:35; Admin Dose 81 MG; Start 12/08/16 at 09:00 Furosemide (Lasix) 20 mg DAILY PO Last administered on 12/22/16 10:25; Admin Dose 20 MG; Start 12/08/16 at 09:00 Nifedipine (Procardia Xl) 60 mg DAILY PO Last administered on 12/22/16 10:26 ; Admin Dose 60 MG; Start 12/08/16 at 09:00 Topiramate (Topamax Sprinkle) 25 mg BID PO Last administered on 12/23/16 10: 52; Admin Dose 25 MG; Start 12/07/16 at 21:00 Multivit/Ca Carb/ B Cmplx/FA/Prenat (Sommer-Samantha) 1 tab DAILY PO Last administered on 12/23/16 10:52; Admin Dose 1 TAB; Start 12/09/16 at 09:00 Folic Acid (Folic Acid) 1 mg DAILY PO Last administered on 12/23/16 10:52; Admin Dose 1 MG; Start 12/09/16 at 09:00 Epoetin Zacarias (Epogen (Esrd)) 4,000 units TuThSa@17 SC Last administered on 17:24; Admin Dose 4,000 UNITS; Start 12/10/16 at 17:00 Diphenhydramine HCl (Benadryl) 25 mg Q6H PRN IV for itching Last administered on 12/23/16 07:10; Admin Dose 25 MG; Start 12/10/16 at 12:00 Clonidine (Catapres) 0.2 mg TID PO Last administered on 12/22/16 20:16; Admin Dose 0.2 MG; Start 12/11/16 at 21:00 Morphine Sulfate (Ms Contin (Er)) 15 mg BID PO Last administered on 12/23/16 10:52; Admin Dose 15 MG; Start 12/13/16 at 09:00 Gabapentin (Neurontin) 200 mg BID PO Last administered on 12/23/16 10:53; Admin Dose 200 MG; Start 12/13/16 at 09:00 Labetalol HCl (Normodyne) 100 mg TID PO Last administered on 12/22/16 20:15; Admin Dose 100 MG; Start 12/14/16 at 09:00 Nifedipine (Procardia Xl) 30 mg HS PO Last administered on 12/22/16 20:16; Admin Dose 30 MG; Start 12/15/16 at 21:00 Hydralazine HCl (Apresoline) 10 mg Q4H PRN IV HYPERTENSION; Start 12/15/16 at 18:00 Hydromorphone HCl (Dilaudid) 2 mg Q3H PRN IV PAIN Last administered on 09:13; Admin Dose 2 MG; Start 12/20/16 at 22:30 Alteplase, Recombinant (Cathflo (Activase)) 2 mg ONCE CATHETER Last administered on 12/23/16 12:03; Admin Dose 2 MG; Start 12/23/16 at 11:30; Stop 12/24/16 at 11:31 Warfarin Sodium (Coumadin) 5 mg DAILY@17 PO ; Start 12/23/16 at 12:00 Enoxaparin Sodium (Lovenox) 90 mg Q24H SC ; Start 12/23/16 at 12:00 Assessment/Plan Chief Complaint/Hosp Course SUBJECTIVE: No events overnight. Alert, looks comfortable, no fevers. INDWELLINGS: R femoral Aris. MICROBIOLOGY: Blood cultures and tip culture growing oxacillin-sensitive Staphylococcus aureus. ANTIMICROBIALS: Ancef. PHYSICAL EXAMINATION: GENERAL: This is a well-developed, obese, middle-aged -[place] woman who is awake, in no distress. HEENT: Head atraumatic, normocephalic. Sclerae anicteric. Buccal mucosa dry. NECK: Supple. CHEST: Rise is symmetrical. Breath sounds diminished to bases. HEART: S1, S2. ABDOMEN: Soft. Bowel tones present. EXTREMITIES: Without cyanosis. ASSESSMENT: 1. S/p Line sepsis with oxacillin sensitive Staphylococcus aureus bacteremia==> R fem pcath 12/21 2. End-stage renal disease. 3. Hypertension. 4. History of noncompliance and possible substance use. 5. Rash ==> no scabies per scrapping 6. Left iliocaval stenosis and chronic thrombus PLAN: The patient remains stable. Continue abx for 2 weeks post HD, anticoagulation, vascular rec-s [facility] staff Problems: BILL HOFFMAN NP Dec 23, 2016 14:18
--- NOTE | 2016-12-23 15:45 | RADRPT ---
PROCEDURE: Left knee x-ray CLINICAL INDICATION: Knee pain TECHNIQUE: AP, lateral and tunnel views of the left knee were obtained. COMPARISON: None FINDINGS: There is normal mineralization. No acute fracture or dislocation is seen. There are no significant degenerative changes. There is no joint effusion. There is no significant soft tissue swelling. RPTAT: AA IMPRESSION: Normal x-ray of the left knee. .Teja Long MD, MD Date Time Electronically viewed and signed by .Teja Long MD, on 12/23/2016 15:44 .S/
--- NOTE | 2016-12-23 15:47 | RADRPT ---
PROCEDURE: XR Foot. CLINICAL INDICATION: Pain TECHNIQUE: AP, lateral and oblique views of the left foot was obtained. The images were reviewed on a PACS workstation. COMPARISON: 04/29/2015 FINDINGS: There is a partially healed fracture of the base of the fifth metatarsal. There is evidence of nonun ion. There is no acute fractures seen. The joint spaces are preserved. The bone mineralization is normal. No significant soft tissue swelling is seen. RPTAT: AA IMPRESSION: Partially healed fracture at the base of the fifth metatarsal, with evidence of nonunion. No acute fracture noted. .Teja Long MD, MD Date Time Electronically viewed and signed by .Teja Long MD, MD on 12/23/2016 15:47 .S/
[2016-12-23] MEDS ORDERED: NEPH PO (16:11)
[2016-12-23] MEDS ORDERED: FOLI-49 PO (16:11)
[2016-12-23] MEDS ORDERED: APIX2.5T PO (16:11)
--- NOTE | 2016-12-23 16:15 | PDOCDIS ---
Discharge Instructions DIAGNOSIS Discharge Diagnosis staph aureus bacteremia from dialysis line infection, chronic lower extremity DVT CONDITION Patient Condition: Stable HOME CARE INSTRUCTIONS: Diet Instructions: CARLENE, LOW FAT/ LOW CHOLESTEROLSpecial Diet: Renal, fluid restriction 1000 cc/day ACTIVITY: Activity Restrictions: Slowly Increase Activity Rest between Activity FOLLOW UP/APPOINTMENTS Follow-up Plan You will need to be on the blood thinner for the next 3 months Ask your regular doctor if you should be seen by a blood specialist for your history of blood clots As the vascular surgeon told you, while you are on the blood thinner, if you hit your head or have any bleeding that does not stop you need to go to the nearest ER immediately as being on blood thinners increases your bleeding risk significantly. Your next dialysis session is Monday. Please follow up with the vascular surgeon to talk about when you'll be getting evaluated for fistula Dr Mark Grimes Office Address [address] [place], [place] [id number] Office BHARAT BLACK MD Dec 23, 2016 16:15
[2016-12-23] MEDS ORDERED: HYDROmorphONE 0.5 MG/0.5 ML SYG IV STA (16:19)
--- NOTE | 2016-12-23 16:24 | DS ---
Date/Time of Note Date/Time of Note DATE: 12/23/16 TIME: 16:15 Discharge Summary Admission/Discharge Info Admit Date/Time Dec 07, 2016 at 10:40 Discharge Date/Time Discharge Diagnosis MSSA bacteremia from dialysis line infection, chronic lower extremity DVT Patient Condition: Guarded Consults ID, nephrology, vascular surgery, pain management, cardiology Procedures 11.1 groin US IMPRESSION: 1. Dialysis catheter in the left inguinal region. There is surrounding fluid with a thickness of approximately 0.5 cm. The fluid may be due to seroma, hematoma, or abscess. Clinical correlation advised. 2. Any further management regarding the painful lesion should be based on clinical grounds. 11.2 PROCEDURE: 1. Iliac venogram 2. Exchange of left common femoral vein tunneled hemodialysis catheter to a Aris catheter 3. Fluoroscopy 11.6 PROCEDURES: 1. Bilateral upper extremity venogram. 2. Central venogram. 11.7 LE dopplers FINDINGS: There is normal compressibility and flow within the bilateral common femoral, superficial femoral , posterior tibial, peroneal and popliteal veins. 11.8 LLE CTA IMPRESSION: Normal CT angiography of the pelvis and bilateral lower extremities. Venographic examination is partially degraded due to low level of venous intravascular enhancement achieved measuring less than 120 HU. There is no evidence of flow-limiting deep venous thrombosis within the pelvis or bilateral lower extremities. Nonocclusive thrombus associated with the patient's left femoral is not completely excluded due to beam hardening artifact and poor intravascular enhancement. There is suspected extrinsic compression of the left iliac vein by the left common iliac artery which is partially diminished due to the presence of the left femoral approach venous catheter; degree of compression appeared greater on the patient's prior CT scan 06/20/2015. Diffuse subcutaneous edema of the left lower extremity is present throughout which is enlarged as compared to the right. 11.15 PROCEDURES: 1. Ultrasound-guided access of the right common femoral vein. 2. Bilateral lower extremity venogram. 3. Inferior vena cava venogram. 4. Introduction of catheter into the inferior vena cava. 5. Intravascular ultrasound of the right common femoral vein, right external iliac vein, right common iliac vein. 6. Intravascular ultrasound of the left common femoral vein, left external iliac vein, left common iliac vein. 7. Intravascular ultrasound of the inferior vena cava. 8. Venoplasty of the left common femoral vein, external iliac vein, common iliac vein using 8 x 60 mm balloon, 10 x 40 mm balloon, 12 x 40 mm balloon, respectively. 9. Placement of a new left common femoral vein permanent hemodialysis catheter. FINDINGS: Occluded left common femoral vein, occluded left external iliac vein , moderate stenosis of the proximal left common iliac vein, patent distal left common iliac vein, patent inferior vena cava. 11.17 L knee xr and L foot xr: old L foot fracture, no acute knee or foot fractures MICRO Blood cultures 11.1 and 11.2 and line tip culture 11.2: MSSA Blood culture 11.4: no growth TTE 11.2 Conclusions 1. Normal left ventricular systolic function. Normal left ventricular cavity size. Mild concentric left ventricular hypertrophy. Ejection fraction is visually estimated at 55-60 %. Tissue Doppler/Mitral Doppler indices are within normal limits. 2. Mitral valve leaflets appear mildly thickened. Mild mitral annular calcification. Mild mitral valve regurgitation. 3. Normal appearance of the tricuspid valve. Estimated peak PA systolic pressure 49 mmHg. There is mild tricuspid regurgitation. 4. Trivial pericardial effusion. Pleural effusion seen. Hx of Present Illness CC L groin pain and swelling x 2 days HPI 31 yo F with ESRD on HD, HTN presents with pain in L groin x 2 days. No fevers/ chills. Reports discharge started from L groin earlier today. Line has been working well. Hospital Course 31 yo F with ESRD on HD admitted for MSSA bacteremia from infected L groin cath , sp new permacath placement 11.15. TTE negative for IE. Plan is 2 weeks of Ancef with HD from new line creation. During permacath placement, pt incidentally noted to have chronic DVT. Vascular surgery advising 3 mos of anticoagulation with Eliquis. Of note, pt requesting very high amounts of pain meds during her stay, also demanded IV Benadryl. Concern raised for drug addiction/dependence. In the future, I advise that patient NOT BE PLACED ON SCHEDULED NARCOTICS WHILE IN THE HOSPITAL. ALSO THERE IS NO INDICATION FOR IV BENADRYL GIVEN THAT PATIENT CAN TOLERATE PO. I advise firm boundaries with patient regarding pain medications. Home Meds Active Scripts Cefazolin Sod* (Ancef* 2Gm/D5W (PMX)) 2 Gm/50 Ml Iv.soln., 2 GM IVPB AFTER DIALYSIS for 14 Days, EA Prov:BHARAT BLACK MD 12/22/16 Reported Medications Labetalol Hcl* (Labetalol Hcl*) 100 Mg Tablet, 100 MG PO BID, TAB 12/07/16 Sevelamer Hcl* (Renagel*) 800 Mg Tablet, 800 MG PO WITH MEALS, TAB 12/07/16 Aspirin* (Aspirin* Chew) 81 Mg Tab.chew, 81 MG PO DAILY, TAB.CHEW 12/07/16 Topiramate* (Topamax*) 25 Mg Cap.sprink, 25 MG PO BID, CAP 03/25/16 Carvedilol* (Coreg*) 12.5 Mg Tablet, 12.5 MG PO BID, #60 TAB 03/25/16 Nifedipine* (Nifedipine ER*) 60 Mg Tablet.sa, 60 MG PO DAILY, TAB.SA 01/08/16 Furosemide* (Lasix*) 20 Mg Tablet, 20 MG PO DAILY, TAB 01/08/16 Hydralazine Hcl* (Hydralazine Hcl*) 50 Mg Tab, 50 MG PO Q12 Y for HYPERTENSION, #60 TAB 01/08/16 Clonidine Hcl* (Clonidine Hcl*) 0.2 Mg Tablet, 0.2 MG PO BID, TAB 01/08/16 Follow-up Plan You will need to be on the blood thinner for the next 3 months Ask your regular doctor if you should be seen by a blood specialist for your history of blood clots As the vascular surgeon told you, while you are on the blood thinner, if you hit your head or have any bleeding that does not stop you need to go to the nearest ER immediately as being on blood thinners increases your bleeding risk significantly. Your next dialysis session is Monday. Please follow up with the vascular surgeon to talk about when you'll be getting evaluated for fistula Dr Mark Ni Office Address [address] [place] [id number] Office Primary Care Provider Edward Smith MD Time spent on discharge: > 30 minutes Copies To: CC: MARK NI MD, ELLEN MD Dec 23, 2016 16:24
[2016-12-23] MEDS ORDERED: APIXABAN 5 MG TABLET PO SCH ×6 (21:00)
== END 2016-12-23 17:05 | disposition home or self-care (01) | DRG 252 ==
LOC: E/R 07:33 → MS2 10:40
PROVIDERS: ADMIT Internal Medicine; ATTEND Internal Medicine
PROC: 06JYXZZ Inspection of Lower Vein, External Approach (ICD-10-PCS; 2016-12-08)
PROC: 0J2WXYZ Change Other Device in Lower Extremity Subcutaneous Tissue and Fascia, External Approach (ICD-10-PCS; 2016-12-08)
PROC: B51CYZA Fluoroscopy of Left Lower Extremity Veins using Other Contrast, Guidance (ICD-10-PCS; 2016-12-08)
PROC: 5A1D70Z Performance of Urinary Filtration, Intermittent, Less than 6 Hours Per Day (ICD-10-PCS; 2016-12-09)
PROC: 5A1D70Z Performance of Urinary Filtration, Intermittent, Less than 6 Hours Per Day (ICD-10-PCS; 2016-12-10)
PROC: B51 Imaging, Veins, Fluoroscopy (ICD-10-PCS; 2016-12-12)
PROC: B51 Imaging, Veins, Fluoroscopy (ICD-10-PCS; 2016-12-12)
PROC: B516YZZ Fluoroscopy of Right Subclavian Vein using Other Contrast (ICD-10-PCS; 2016-12-12)
PROC: B517YZZ Fluoroscopy of Left Subclavian Vein using Other Contrast (ICD-10-PCS; 2016-12-12)
PROC: 5A1D70Z Performance of Urinary Filtration, Intermittent, Less than 6 Hours Per Day (ICD-10-PCS; 2016-12-12)
PROC: 5A1D70Z Performance of Urinary Filtration, Intermittent, Less than 6 Hours Per Day (ICD-10-PCS; 2016-12-14)
PROC: 5A1D70Z Performance of Urinary Filtration, Intermittent, Less than 6 Hours Per Day (ICD-10-PCS; 2016-12-15)
PROC: 5A1D70Z Performance of Urinary Filtration, Intermittent, Less than 6 Hours Per Day (ICD-10-PCS; 2016-12-17)
PROC: 5A1D70Z Performance of Urinary Filtration, Intermittent, Less than 6 Hours Per Day (ICD-10-PCS; 2016-12-19)
PROC: 06PY33Z Removal of Infusion Device from Lower Vein, Percutaneous Approach (ICD-10-PCS; 2016-12-21)
PROC: 06H033Z Insertion of Infusion Device into Inferior Vena Cava, Percutaneous Approach (ICD-10-PCS; 2016-12-21)
PROC: 0JHM3XZ Insertion of Tunneled Vascular Access Device into Left Upper Leg Subcutaneous Tissue and Fascia, Percutaneous Approach (ICD-10-PCS; 2016-12-21)
PROC: B519YZA Fluoroscopy of Inferior Vena Cava using Other Contrast, Guidance (ICD-10-PCS; 2016-12-21)
PROC: B51DYZZ Fluoroscopy of Bilateral Lower Extremity Veins using Other Contrast (ICD-10-PCS; 2016-12-21)
PROC: B549ZZ3 Ultrasonography of Inferior Vena Cava, Intravascular (ICD-10-PCS; 2016-12-21)
PROC: B54DZZ3 Ultrasonography of Bilateral Lower Extremity Veins, Intravascular (ICD-10-PCS; 2016-12-21)
PROC: 5A1D70Z Performance of Urinary Filtration, Intermittent, Less than 6 Hours Per Day (ICD-10-PCS; 2016-12-21)
PROC: 067N3ZZ Dilation of Left Femoral Vein, Percutaneous Approach (ICD-10-PCS; principal; 2016-12-21 11:00)
PROC: 067D3ZZ Dilation of Left Common Iliac Vein, Percutaneous Approach (ICD-10-PCS; 2016-12-21 11:00)
PROC: 067G3ZZ Dilation of Left External Iliac Vein, Percutaneous Approach (ICD-10-PCS; 2016-12-21 11:00)
PROC: 5A1D70Z Performance of Urinary Filtration, Intermittent, Less than 6 Hours Per Day (ICD-10-PCS; 2016-12-23)
DX: T82.7XXA Infection and inflammatory reaction due to other cardiac and vascular devices, implants and grafts, initial encounter (principal); N18.6 End stage renal disease; A41.01 Sepsis due to Methicillin susceptible Staphylococcus aureus; I12.0 Hypertensive chronic kidney disease with stage 5 chronic kidney disease or end stage renal disease; I82.512 Chronic embolism and thrombosis of left femoral vein; I82.522 Chronic embolism and thrombosis of left iliac vein; I87.1 Compression of vein; I87.8 Other specified disorders of veins; R07.89 Other chest pain; D64.9 Anemia, unspecified; E87.5 Hyperkalemia; E66.01 Morbid (severe) obesity due to excess calories; R60.0 Localized edema; R21 Rash and other nonspecific skin eruption; Z99.2 Dependence on renal dialysis; Z87.891 Personal history of nicotine dependence; Z91.14 Patient's other noncompliance with medication regimen; Z68.32 Body mass index [BMI] 32.0-32.9, adult; Z79.82 Long term (current) use of aspirin
CPT/HCPCS: 37248; 37249; 37252; 71010; 73562; 73706; 75822; 75825; 80048; 80053; 80061; 81001; 82550; 82553; 83605; 83735; 84100; 84484; 84703; 85025; 85610; 85730; 87040; 87070; 87081; 87086; 88300; 90686; 90935; 93005; 93306; 93970; 96372; 96374; 96375; 96376; 97161; C1725; C1750; C1894; J0360; J0690; J1100; J1170; J1200; J1644; J1650; J2250; J2270; J2405; J2765; J2997; J3010; J7040; Q4081; Q9967

== ENCOUNTER 2017-01-02 16:23 | Inpatient (IN) | payer BC ==
[~2017-01-02] VITALS: Ht 165.1 cm; Wt 94.0 kg
[~2017-01-02 16:23] MED LIST changes: -AMLO-147 PO; +APIX2.5T PO; -APIX5TAB PO; -ASPI325T4 PO; +ASPI81TA3 PO; +FOLI-49 PO; +LABE100T3 PO; +NEPH PO; +SEVE800T10 PO; +[UNRECOGNIZED DRUG - CODE] IVPB
[2017-01-02] MEDS ORDERED: ONDANSETRON 4 MG INJ IV STA (19:55)
[2017-01-02] MEDS ORDERED: HYDROmorphONE 1 MG/ML SYG IV STA (19:55)
[2017-01-02 20:37] LABS: BASOPHILS % 0.4 % (0.0-2.0); EOSINOPHILS # 0.8 10^3/ul (0.0-0.5); EOSINOPHILS % 9.1 % (0.0-7.0); HEMATOCRIT 25.6 % (37.0-47.0); LYMPHOCYTES % 11.4 % (15.0-51.0); MEAN CORPUSCULAR HEMOGLOBIN 29.6 pg (29.0-33.0); MEAN CORPUSCULAR HGB CONC 31.3 g/dl (32.0-37.0); MEAN CORPUSCULAR VOLUME 94.8 fl (82.0-101.0); MEAN PLATELET VOLUME 10.8 fl (7.4-10.4); MONOCYTE # 0.6 10^3/ul (0.3-0.9); NEUTROPHILS % 71.9 % (39.0-77.0); PLATELET COUNT 272 10^3/UL (140-415); RED CELL DISTRIBUTION WIDTH 15.9 % (11.5-14.5); WHITE BLOOD COUNT 8.3 10^3/ul (4.8-10.8)
[2017-01-02 20:46] LABS: ALBUMIN 4.5 g/dl (3.3-4.9); CALCIUM 8.8 mg/dl (8.4-10.2); POTASSIUM 5.4 mmol/L (3.5-5.1)
--- NOTE | 2017-01-02 20:51 | RADRPT ---
PROCEDURE: US left lower extremity veins. CLINICAL INDICATION: Left leg pain and swelling. TECHNIQUE: Multiple longitudinal and transverse images of the left lower extremity veins were obta ined with grijalva scale and color Doppler imaging. The common femoral vein, femoral vein, and popliteal vein were evaluated. 2D grayscale measurements with compression sonography, pulsed Doppler, color D oppler, and pulsed Doppler with augmentation. COMPARISON: No prior studies are available for comparison. FINDINGS: There is lack of flow and lack of compressibility involving the left common femoral vein. The vein i s dilated and contains echogenic thrombus consistent with acute deep venous thrombosis. The left fem oral vein and left popliteal vein demonstrate normal flow and compressibility. There is also thrombus in the left greater saphenous vein superiorly. IMPRESSION: 1. Acute deep venous thrombosis of the left common femoral vein. 2. Superficial thrombosis of the upper left greater saphenous vein. 3. Normal left femoral vein and left popliteal vein. Results given to the emergency department following the study. RPTAT: QQ .Qasim Watkins MD, MD Date Time Electronically viewed and signed by .Qasim Watkins MD, MD on 01/02/2017 20:50 .R/
[2017-01-02 20:55] LABS: CREATININE 15.74 mg/dl (0.44-1.00)
--- NOTE | 2017-01-02 21:53 | ERD ---
ER Documentation Chief Complaint Chief Complaint left leg swelling x 2 weeks, dialysis access on that leg HPI This a 31-year-old dialysis patient his last dialysis was on Monday. The patient did not have dialysis today. The patient says she was diagnosed with a left leg DVT at [facility] and was put on Eliquis a few days ago. She says her left leg is getting more painful more swollen and red even after starting Eliquis. The patient had a left permacath placed in her left femoral vessel on December 17 after an infected one was removed at this hospital. Denies any shortness of breath or chest pain. ROS All systems reviewed and are negative except as per history of present illness. Medications Home Meds Active Scripts Apixaban* (Eliquis*) 2.5 Mg Tablet, 2.5 MG PO BID for 30 Days, #60 TAB 2 Refills Prov:BHARAT BLAKC MD 12/23/16 Folic Acid* (Folic Acid*) 1 Mg Tablet, 1 MG PO DAILY for 30 Days, #30 TAB Prov:BHARAT BLACK MD 12/23/16 Multivit/Ca Carb/B Cmplx/Fa* (Sommer-Samantha*) 1 Tab Tab, 1 TAB PO DAILY for 30 Days , #30 TAB Prov:BHARAT BLACK MD 12/23/16 Cefazolin Sod* (Ancef* 2Gm/D5W (PMX)) 2 Gm/50 Ml Iv.soln., 2 GM IVPB AFTER DIALYSIS for 14 Days, EA Prov:BHARAT BLACK MD 12/22/16 Reported Medications Labetalol Hcl* (Labetalol Hcl*) 100 Mg Tablet, 100 MG PO BID, TAB 12/07/16 Sevelamer Hcl* (Renagel*) 800 Mg Tablet, 800 MG PO WITH MEALS, TAB 12/07/16 Aspirin* (Aspirin* Chew) 81 Mg Tab.chew, 81 MG PO DAILY, TAB.CHEW 12/07/16 Topiramate* (Topamax*) 25 Mg Cap.sprink, 25 MG PO BID, CAP 03/25/16 Carvedilol* (Coreg*) 12.5 Mg Tablet, 12.5 MG PO BID, #60 TAB 03/25/16 Nifedipine* (Nifedipine ER*) 60 Mg Tablet.sa, 60 MG PO DAILY, TAB.SA 01/08/16 Furosemide* (Lasix*) 20 Mg Tablet, 20 MG PO DAILY, TAB 01/08/16 Hydralazine Hcl* (Hydralazine Hcl*) 50 Mg Tab, 50 MG PO Q12 Y for HYPERTENSION, #60 TAB 01/08/16 Clonidine Hcl* (Clonidine Hcl*) 0.2 Mg Tablet, 0.2 MG PO BID, TAB 01/08/16 Allergies Allergies: Coded Allergies: vancomycin (Verified Allergy, Mild, 01/02/17) PMhx/Soc History of Surgery: Yes (KIDNEY STONES) Anesthesia Reaction: No Hx Neurological Disorder: Yes (O[place]ES PALSY) Hx Respiratory Disorders: Yes (ASTHMA) Hx Cardiac Disorders: Yes (CHF) Hx Psychiatric Problems: Yes (DEPRESSIVE DISORDER) Hx Miscellaneous Medical Probl: Yes (dialysis ) Hx Alcohol Use: No Hx Substance Use: No Hx Tobacco Use: No Smoking Status: Never smoker FmHx Family History: No coronary disease Physical Exam Vitals Vital Signs Date Time Temp Pulse Resp B/P Pulse Ox O2 Delivery O2 Flow Rate FiO2 01/02/17 20:59 98.0 76 18 122/79 100 01/02/17 16:26 98.0 94 18 144/89 100 Physical Exam Const: Well-developed, well-nourished Head: Atraumatic, normocephalic Eyes: Normal Conjunctiva, PERRLA, EOMI, normal sclera, no nystagmus ENT: Normal External Ears, Nose and Mouth, moist mucus membranes. Neck: Full range of motion. No meningismus, no lymphadenopathy. Resp: Clear to auscultation bilaterally, no wheezing, rhonchi, rales Cardio: Regular rate and rhythm, no murmurs, S1 S2 present Abd: Soft, non tender x 4, non distended. Normal bowel sounds, no guarding or rebound, no pulsitile abdominal masses or bruits Skin: No petechiae or rashes, no ecchymosis , no maculopapular rash Back: No midline or flank tenderness Ext: No cyanosis,+2 edema, FROM x 4, left leg is red and swollen and twice the size of the right leg, very tender and painful, neurovascularly intact x 4 Neur: Awake and alert, STR 5/5 x 4, sensation intact x 4, no focal findings, cerebellum intact Psych: Normal Mood and Affect Result Diagram: 01/02/17201301/02/172013 Results 24 hrs Laboratory Tests Test 01/02/17 20:14 White Blood Count 8.310^3/ul Red Blood Count 2.7010^6/ul Hemoglobin 8.0g/dl Hematocrit 25.6% Mean Corpuscular Volume 94.8fl Mean Corpuscular Hemoglobin 29.6pg Mean Corpuscular Hemoglobin Concent 31.3g/dl Red Cell Distribution Width 15.9% Platelet Count 27924^3/UL Mean Platelet Volume 10.8fl Neutrophils % 71.9% Lymphocytes % 11.4% Monocytes % 7.0% Eosinophils % 9.1% Basophils % 0.4% Nucleated Red Blood Cells % 0.0/100WBC Neutrophils # 6.010^3/ul Lymphocytes # 1.010^3/ul Monocytes # 0.610^3/ul Eosinophils # 0.810^3/ul Basophils # 0.010^3/ul Nucleated Red Blood Cells # 0.010^3/ul Sodium Level 139mmol/L Potassium Level 5.4mmol/L Chloride Level 95mmol/L Carbon Dioxide Level 19mmol/L Anion Gap 30 Blood Urea Nitrogen 114mg/dl Creatinine 15.74mg/dl Glucose Level 92mg/dl Calcium Level 8.8mg/dl Total Bilirubin 0.0mg/dl Direct Bilirubin 0.00mg/dl Indirect Bilirubin 0.0mg/dl Aspartate Amino Transf (AST/SGOT) 24IU/L Alanine Aminotransferase (ALT/SGPT) 14IU/L Alkaline Phosphatase 94IU/L Total Protein 9.0g/dl Albumin 4.5g/dl Globulin 4.50g/dl Albumin/Globulin Ratio Pending Current Medications Medications (Trade) Dose Ordered Sig/Belkys Route PRN Reason Start Time Stop Time Status Last Admin Dose Admin Hydromorphone HCl (Dilaudid) 1 mg ONCE STAT IV 01/02/17 19:55 01/02/17 19:57 DC 01/02/17 20:21 Ondansetron HCl (Zofran Inj) 4 mg ONCE STAT IV 01/02/17 19:55 01/02/17 19:57 DC 01/02/17 20:21 Procedures/MDM PROCEDURE: US left lower extremity veins. CLINICAL INDICATION: Left leg pain and swelling. TECHNIQUE: Multiple longitudinal and transverse images of the left lower extremity veins were obtained with grijalva scale and color Doppler imaging. The common femoral vein, femoral vein, and popliteal vein were evaluated. 2D grayscale measurements with compression sonography, pulsed Doppler, color Doppler, and pulsed Doppler with augmentation. COMPARISON: No prior studies are available for comparison. FINDINGS: There is lack of flow and lack of compressibility involving the left common femoral vein. The vein is dilated and contains echogenic thrombus consistent with acute deep venous thrombosis. The left femoral vein and left popliteal vein demonstrate normal flow and compressibility. There is also thrombus in the left greater saphenous vein superiorly. IMPRESSION: 1. Acute deep venous thrombosis of the left common femoral vein. 2. Superficial thrombosis of the upper left greater saphenous vein. 3. Normal left femoral vein and left popliteal vein. Results given to the emergency department following the study. RPTAT: QQ .Qasim Watkins MD, MD Date Time Electronically viewed and signed by .Qasim Watkins MD, on 01/02/2017 20:50 .R/ CC: VINNY TURNER DO The patient is having severe worsening of her swelling pain and redness of the left leg despite being on Eliquis. I will admit for pain control and needs a different anticoagulant Departure Diagnosis: Primary Impression: Left leg DVT Affected thrombotic vein of extremity: femoral Chronicity: acute Qualified Code: I82.412 - Acute deep vein thrombosis (DVT) of femoral vein of left lower extremity Condition: Stable VINNY TURNER DO Jan 02, 2017 21:53
[2017-01-02] MEDS ORDERED: ACETAMINOPHEN 325 MG TAB PO PRN ×2 (22:30→23:00)
[2017-01-02] MEDS ORDERED: ONDANSETRON 4 MG INJ IV PRN (22:30)
[2017-01-02] MEDS ORDERED: CEFAZOLIN 2 GM/50 ML (PMX) IVPB SCH (23:00)
[2017-01-02] MEDS ORDERED: NACL 0.9% 3 ML SYG IV SCH (23:00)
[2017-01-02] MEDS: APIXABAN 5 MG TABLET PO SCH (23:00)
[2017-01-03] VITALS (14 sets, daily range): BP systolic 126–164; BP diastolic 72–104; PULSE 80–88; RESP 18–20; TEMP 98.4; Ht 165.1 cm; Wt 94.0 kg
[2017-01-03] MEDS: morphine 2 MG INJ IV PRN ×3 (02:01→13:29)
--- NOTE | 2017-01-03 02:04 | HP ---
Date/Time of Note Date/Time of Note DATE: 01/03/17 TIME: 01:52 Assessment/Plan VTE Prophylaxis VTE Prophylaxis Intervention: other (eliquis) Assessment/Plan Chief Complaint/Hosp Course #1 Left lower extremity DVT: acute vs chronic. I am not entirely convinced this is a new dvt she was found to have a chronic DVT of the left lower extremity on the last admission. She is on eliquis at this time and I will continue this for now. I will provide her pain control with morphine at the current time and will hold off on prescribing stronger narcotics or Benadryl based on patient's previous admission and concern for possible drug-seeking behavior. Consult vascular surgery for further guidance regarding management. #2 ESRD: on dialysis. Patient is on MWF shchedule, however she missed her session on Monday. Will consult nephro for dialysis session scheduling likely in the AM. #3 Hypertension: Continue to monitor, continue patient's home medications #4 MSSA bacteremia: At the current time we will continue Ancef as scheduled . #5 DVT GI prophylaxis: Patient is currently on Eliquis may need to increase dose , no GI prophylaxis indicated further treatment strategy will be implemented as per the clinical course Problems: HPI/ROS Admit Date/Time Admit Date/Time Jan 02, 2017 at 22:09 Hx of Present Illness CC: left leg pain, dvt This a 31-year-old dialysis patient whose last dialysis was on Monday. The patient did not have dialysis today. The patient says she was diagnosed with a left leg DVT at [facility] and was put on Eliquis a few days ago. She says her left leg is getting more painful more swollen and red even after starting Eliquis. The patient had a left permacath placed in her left femoral vessel on December 17 after an infected one was removed at this hospital. Denies any shortness of breath or chest pain. Upon further review of the medical records, it appears that patient was found to have a left lower extremity dvt at that time and was recommended to be on eliquis by vascular surgery. Allergies: Vancomycin Medications: See LEYDI HINDS Const: As per HPI Eyes : No pain discharge or redness or change in visual acuity ENT: No pain, sore throat, congestion, congestion, dysphagia or discharge Respiratory: No shortness of breath, cough, sputum, wheezing, or pleuritic pain Cardiovascular: No chest pain, palpitation, PND, or edema GI : no change in appetite, abdominal pain, nausea, vomiting, diarrhea, constipation, or change in the color his stool Genitourinary: No dysuria, hematuria, flank pain , discharge or CVA tenderness Musculoskeletal: As per HPI Skin: As per HPI Neuro: No headache, dizziness, syncope, seizure, focal weakness Endocrine: No polyuria, polydipsia, temperature intolerance Psych: No hallucination, depression, anxiety or suicidal ideation PMH/Family/Social Past Medical History hypertension, endstage renal disease, morbidly obese with a BMI of 32.9, DVT of left lower extremity Past Surgical History , multiple chest wall catheters and left upper extremity fistula creations, and recent permacath Social History history of alcohol use and substance abuse in the past Smoking Status: Current every day smoker Exam/Review of Systems Vital Signs Vitals Vital Signs Date Time Temp Pulse Resp B/P Pulse Ox O2 Delivery O2 Flow Rate FiO2 01/03/17 01:42 97.7 78 18 164/104 100 01/03/17 00:31 Room Air Exam Exam General: Patient lying in bed sleeping comfortably, when I woke the patient she started complaining of lower extremity pain. HEENT: Atraumatic, normocephalic. The pupils are equal, round and reactive. Extraocular motor are intact Neck: Supple with full range of motion. No rigidity or meningismus Chest: Nontender Lungs: Clear to auscultation bilaterally no crackles rales or wheezing Heart: Normal S1-S2, Regular rhythm and rate. No murmur, S3, or S4 Abdomen: Soft , nontender, nondistended , bowel sounds are present. No guarding no rebound tenderness , No masses or organomegaly. No costovertebral temporal angle mass Extremities: Edema of left lower extremity 2+ which is greater than right. Tender to palpation. Erythema noted. Neurovascularly intact Neurologic: Normal mental status, speech normal, cranial nerves II through XII are intact, motor and sensory are intact, no focal weakness Additional Comments PROCEDURE: US left lower extremity veins. CLINICAL INDICATION: Left leg pain and swelling. TECHNIQUE: Multiple longitudinal and transverse images of the left lower extremity veins were obtained with grijalva scale and color Doppler imaging. The common femoral vein, femoral vein, and popliteal vein were evaluated. 2D grayscale measurements with compression sonography, pulsed Doppler, color Doppler, and pulsed Doppler with augmentation. COMPARISON: No prior studies are available for comparison. FINDINGS: There is lack of flow and lack of compressibility involving the left common femoral vein. The vein is dilated and contains echogenic thrombus consistent with acute deep venous thrombosis. The left femoral vein and left popliteal vein demonstrate normal flow and compressibility. There is also thrombus in the left greater saphenous vein superiorly. IMPRESSION: 1. Acute deep venous thrombosis of the left common femoral vein. 2. Superficial thrombosis of the upper left greater saphenous vein. 3. Normal left femoral vein and left popliteal vein. Results given to the emergency department following the study. RPTAT: QQ .Qasim Watkins MD, MD Date Time Electronically viewed and signed by .Qasim Watkins MD, MD on 01/02/2017 20:50 .R/ CC: VINNY TURNER DO Labs Result Diagram: 01/02/17201301/02/172013 Medications Medications Current Medications Ondansetron HCl (Zofran Inj) 4 mg Q6H PRN IV NAUSEA AND/OR VOMITING; Start at 23:00 Acetaminophen (Tylenol Tab) 650 mg Q6H PRN PO PAIN LEVEL 1-3 OR FEVER; Start 01/02/17 at 23:00 Morphine Sulfate (morphine) 2 mg Q4H PRN IV SEVERE PAIN LEVEL 7-10; Start at 23:00 Docusate Sodium (Colace) 100 mg Q12H PRN PO CONSTIPATION; Start 01/02/17 at 23 :00 Bisacodyl (Dulcolax) 5 mg DAILY PRN PO CONSTIPATION; Start 01/02/17 at 23:00 Apixaban (Eliquis) 2.5 mg BID PO ; Start 01/02/17 at 23:00 Aspirin (Aspirin) 81 mg DAILY PO ; Start 01/03/17 at 09:00 Carvedilol (Coreg) 12.5 mg BID PO ; Start 01/03/17 at 09:00; Status UNV Clonidine (Catapres) 0.2 mg BID PO ; Start 01/03/17 at 09:00 Folic Acid (Folic Acid) 1 mg DAILY PO ; Start 01/03/17 at 09:00 Furosemide (Lasix) 20 mg DAILY PO ; Start 01/03/17 at 09:00 Hydralazine HCl (Apresoline) 50 mg Q12 PRN PO HYPERTENSION; Start 01/02/17 at 23:00; Status UNV Labetalol HCl (Normodyne) 100 mg BID PO ; Start 01/03/17 at 09:00; Status UNV Multivit/Ca Carb/ B Cmplx/FA/Prenat (Sommer-Samantha) 1 tab DAILY PO ; Start at 09:00 Nifedipine (Procardia Xl) 60 mg DAILY PO ; Start 01/03/17 at 09:00 Topiramate (Topamax Sprinkle) 25 mg BID PO ; Start 01/03/17 at 09:00 SWATI GAFFNEY Jan 03, 2017 02:04
[2017-01-03 06:39] LABS: BASOPHILS % 0.4 % (0.0-2.0); EOSINOPHILS # 0.7 10^3/ul (0.0-0.5); EOSINOPHILS % 8.7 % (0.0-7.0); HEMATOCRIT 22.8 % (37.0-47.0); HEMOGLOBIN 7.4 g/dl (12.0-16.0); LYMPHOCYTES # 0.8 10^3/ul (0.8-2.9); LYMPHOCYTES % 9.8 % (15.0-51.0); MEAN CORPUSCULAR HEMOGLOBIN 30.5 pg (29.0-33.0); MEAN CORPUSCULAR HGB CONC 32.5 g/dl (32.0-37.0); MEAN CORPUSCULAR VOLUME 93.8 fl (82.0-101.0); MEAN PLATELET VOLUME 10.8 fl (7.4-10.4); MONOCYTE # 0.7 10^3/ul (0.3-0.9); MONOCYTES % 9.1 % (0.0-11.0); NEUTROPHIL # 5.5 10^3/ul (1.6-7.5); NEUTROPHILS % 71.6 % (39.0-77.0); PLATELET COUNT 248 10^3/UL (140-415); RED BLOOD COUNT 2.43 10^6/ul (4.20-5.40); RED CELL DISTRIBUTION WIDTH 15.4 % (11.5-14.5); WHITE BLOOD COUNT 7.7 10^3/ul (4.8-10.8)
[2017-01-03 07:01] LABS: ALBUMIN 3.8 g/dl (3.3-4.9); ALBUMIN/GLOBULIN RATIO 0.88; CALCIUM 8.9 mg/dl (8.4-10.2); POTASSIUM 4.9 mmol/L (3.5-5.1); TOTAL PROTEIN 8.1 g/dl (6.1-8.1)
[2017-01-03 07:09] LABS: CREATININE 16.45 mg/dl (0.44-1.00)
[2017-01-03] MEDS: ASPIRIN 81 MG TAB PO SCH (08:33)
[2017-01-03] MEDS: SEVELAMER 800 MG TAB PO SCH ×3 (08:33→17:02)
[2017-01-03] MEDS: APIXABAN 5 MG TABLET PO SCH (08:33)
[2017-01-03] MEDS: FOLIC ACID 1 MG TAB PO SCH (08:33)
[2017-01-03] MEDS: MULTIVIT/CA CARB/B CMPLX/FA TAB PO SCH (08:33)
[2017-01-03] MEDS: NIFEdipine (XL) 60 MG TAB PO SCH (08:34)
[2017-01-03] MEDS: FUROSEMIDE 20 MG TAB PO SCH (08:35)
[2017-01-03] MEDS ORDERED: LABETALOL 100 MG TAB PO SCH (09:00)
[2017-01-03] MEDS ORDERED: HYDROmorphONE 1 MG/ML SYG IV STA (09:46)
--- NOTE | 2017-01-03 12:10 | CONS ---
DATE OF ADMISSION: 01/02/2017 DATE OF CONSULTATION: 01/03/2017 VASCULAR SURGERY CONSULTATION Dear Doctors: Ms. Taylor is a 31-year-old female known to our vascular surgery service group secondary to history of endstage renal disease that seems to be complicated in nature, who was admitted to [facility] over the past month with left groin Perm catheter infection and bacteremia. Subsequently, the patient had undergone multiple interventions with the left lower extremity as the patient has intolerance for any pain and required anything to be done under anesthesia and not being awake. During that admission , patient underwent a Aris catheter placement until her bacteremia had resolved. 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 This is identified on intravascular ultrasound and the patient did not want to change her access site as she has refused any further interventions with her upper extremities, although she does have central occlusion and there are other options from an advanced access creation standpoint. Therefore, the patient's left groin area once it had cleared from the infection, a new track of a Perm catheter was placed and patient was continued on her Eliquis medication. The reason why she was placed on Eliquis is that the patient had been on it previously for her upper extremity central occlusions, but because it was thrombus that was identified and as it appeared chronic it was not clear as to how long she has had these thrombosis; therefore, she was started on Eliquis for that. It seems that the patient over the past week, went to [facility] having some issues of left leg swelling in which they had mentioned to her that she has a new episode of DVT and was instructed to continue being on her Eliquis. Although the patient had been given prescription and to continue with her Eliquis since she was in the hospital. There is some component of patient noncompliance and also it is unclear if the patient has anywhere to live as we have had discussions on multiple occasions regarding options of upper extremity access and the possible fistula creation. At the moment, the patient denies shortness of breath, chest pain, nausea, vomiting, fever or chills. She does have left lower extremity swelling and discomfort and pain upon palpation around her calf area mainly. PAST MEDICAL HISTORY: Entails morbidly obese, BMI of 32.6, endstage renal disease, hypertension. PAST SURGICAL HISTORY: and multiple chest wall catheters, multiple upper extremity fistulas creations, multiple groin catheter placements and as of recent, left lower extremity iliac venoplasty and intravascular ultrasound. FAMILY HISTORY: Positive for hypertension. SOCIAL HISTORY: Denies tobacco, alcohol or illicit drug use at the moment. PHYSICAL EXAMINATION: GENERAL: She is alert and oriented x3. Left lower extremity is uncomfortable. HEENT: Normocephalic, atraumatic. EOMI. Mucosa moist. NECK: Supple. No carotid bruit. She does have a lot of spots over her face from scratching. Neck supple. No carotid bruit. PULMONARY: Clear to auscultation bilaterally. No crackles. CARDIOVASCULAR: S1, S2 present. No murmurs. ABDOMEN: Soft, nontender, nondistended. Bowel sounds positive. Truncal obesity. RIGHT LOWER EXTREMITY: Palpable femoral pulse, faint pedal pulse. Motor, sensory intact. Cap refill 2 to 3 seconds. LEFT LOWER EXTREMITY: Palpable femoral pulse. There is a groin incision with marco intact and dry. Faint pedal pulse. Motor and sensory intact. However , the patient does have edema of the lower leg, about 2 to 3+ and tender upon palpation. Perm catheter intact and functional ASSESSMENT AND PLAN: Endstage renal disease and central occlusion: It seems that the patient's left common femoral vein Perm catheter is functioning well; however, patient has progressed in terms of her left lower extremity deep venous thrombosis. Patient did have deep venous thrombosis findings in the common femoral vein that was identified when we had done her angiogram about 2 weeks ago; therefore, I would not necessarily say that it is acute. However, the patient does have superficial thrombophlebitis of her left greater saphenous vein and she does have calf tenderness with edema of 2+ to 3+ in that segment At the moment, would recommend for the patient to consider allowing us to remove her left groin Perm catheter and attempting a new access for her. She may be a candidate for peritoneal dialysis catheter. At the moment, we may have to place a new catheter in her right common femoral vein if she needs HD temporarily. We also had discussion of a possible peritoneal dialysis catheter with her wire wrapper machine operator with the patient and she will let us know if that is an option that she can comply with. There is a question the patient may not have a place to live and may be an issue for followup as that is one of the requirements for peritoneal dialysis catheter. I would recommend for the patient to keep her left lower extremity elevated for now. Continue with her anticoagulation on Eliquis 5 mg p.o. b.i.d. Discussed findings, plan and management with the patient, she understands. Thank you for allowing us to partake in the care of your patient. Please call with any questions. We may have to transition the patient at the moment from Eliquis to heparin drip in order for us to remove her catheter and place a new Perm catheter for her. Dictated By: JULISSA ZUÑIGA/BRADLEY Conf#: [id number] DID#: [id number] CC: SWATI GAFFNEY MD;*EndCC* MTDD
[2017-01-03] MEDS: TOPIRAMATE SPRINKLE 25 MG CAP PO SCH ×2 (12:16→21:57)
--- NOTE | 2017-01-03 14:02 | PN ---
Date/Time of Note Date/Time of Note DATE: 01/03/17 TIME: 14:01 Assessment/Plan VTE Prophylaxis VTE Prophylaxis Intervention: SCD's Lines/Catheters IV Catheter Type (from Nrsg): Saline Lock Assessment/Plan Assessment/Plan 31 yo F with ESRD on HD, recent admission for MSSA CLABSI/tunnel infection, found to have large LLE DVT at that time readmitted for worsening LLE pain. Imaging with worsening of clot despite anticoagulation. #LLE DVT also superficial thrombophlebitis: management as per vascular surgery. Per his rec, increase Eliquis dose to 5 mg BID defer timing of switching to heparin drip to vascular surgeon pending determination of procedures/timing of procedures #MSSA bacteremia: 2 weeks of treatment advised from 12.21, end date entered into EMR #ESRD: nephrology on cs for HD #pain intolerance: cont current pain regimen, may need to reach out to her outpatient pain medicine specialist. Subjective 24 Hr Interval Summary Free Text/Dictation Pt sleeping this afternoon case dw pt's vascular surgeon, apparently clot is larger than before Exam/Review of Systems Vital Signs Vitals Vital Signs Date Time Temp Pulse Resp B/P Pulse Ox O2 Delivery O2 Flow Rate FiO2 01/03/17 07:46 97.6 88 20 154/99 99 01/03/17 00:31 Room Air Exam Sitting up in bed but sleeping resp nonlabored no abd distension no rashes +L leg swelling Results Result Diagram: 01/03/17 0543 01/03/17 0544 Results 24 hrs Laboratory Tests Test 01/02/17 20:14 01/03/17 05:43 01/03/17 05:44 White Blood Count 8.3 # 7.7 Red Blood Count 2.70 L 2.43 L Hemoglobin 8.0 L 7.4 L Hematocrit 25.6 L 22.8 L Mean Corpuscular Volume 94.8 93.8 Mean Corpuscular Hemoglobin 29.6 30.5 Mean Corpuscular Hemoglobin Concent 31.3 L 32.5 Red Cell Distribution Width 15.9 H 15.4 H Platelet Count 272 # 248 Mean Platelet Volume 10.8 H 10.8 H Neutrophils % 71.9 71.6 Lymphocytes % 11.4 L 9.8 L Monocytes % 7.0 9.1 Eosinophils % 9.1 H 8.7 H Basophils % 0.4 0.4 Nucleated Red Blood Cells % 0.0 0.0 Neutrophils # 6.0 5.5 Lymphocytes # 1.0 0.8 Monocytes # 0.6 0.7 Eosinophils # 0.8 H 0.7 H Basophils # 0.0 0.0 Nucleated Red Blood Cells # 0.0 0.0 Sodium Level 139 142 Potassium Level 5.4 H 4.9 Chloride Level 95 L 98 Carbon Dioxide Level 19 L 21 Anion Gap 30 H 28 H Blood Urea Nitrogen 114 H 113 H Creatinine 15.74 H 16.45 H Glucose Level 92 97 Calcium Level 8.8 8.9 Total Bilirubin 0.0 L 0.0 L Direct Bilirubin 0.00 0.00 Indirect Bilirubin 0.0 0.0 Aspartate Amino Transf (AST/SGOT) 24 23 Alanine Aminotransferase (ALT/SGPT) 14 16 Alkaline Phosphatase 94 79 Total Protein 9.0 H 8.1 Albumin 4.5 3.8 Globulin 4.50 H 4.30 H Albumin/Globulin Ratio 1.00 0.88 Phosphorus Level 11.0 H Medications Medications Current Medications Ondansetron HCl (Zofran Inj) 4 mg Q6H PRN IV NAUSEA AND/OR VOMITING; Start at 23:00 Acetaminophen (Tylenol Tab) 650 mg Q6H PRN PO PAIN LEVEL 1-3 OR FEVER; Start 01/02/17 at 23:00 Morphine Sulfate (morphine) 2 mg Q4H PRN IV SEVERE PAIN LEVEL 7-10 Last administered on 01/03/17 13:29; Admin Dose 2 MG; Start 01/02/17 at 23:00 Docusate Sodium (Colace) 100 mg Q12H PRN PO CONSTIPATION; Start 01/02/17 at 23 :00 Bisacodyl (Dulcolax) 5 mg DAILY PRN PO CONSTIPATION; Start 01/02/17 at 23:00 Aspirin (Aspirin) 81 mg DAILY PO Last administered on 01/03/17 08:33; Admin Dose 81 MG; Start 01/03/17 at 09:00 Carvedilol (Coreg) 12.5 mg BID PO Last administered on 01/03/17 08:34; Admin Dose 12.5 MG; Start 01/03/17 at 09:00 Clonidine (Catapres) 0.2 mg BID PO Last administered on 01/03/17 08:35; Admin Dose 0.2 MG; Start 01/03/17 at 09:00 Folic Acid (Folic Acid) 1 mg DAILY PO Last administered on 01/03/17 08:33; Admin Dose 1 MG; Start 01/03/17 at 09:00 Furosemide (Lasix) 20 mg DAILY PO Last administered on 01/03/17 08:35; Admin Dose 20 MG; Start 01/03/17 at 09:00 Hydralazine HCl (Apresoline) 50 mg Q12 PRN PO FOR SBP ABOVE 170 Last administered on 01/03/17 04:25; Admin Dose 50 MG; Start 01/02/17 at 23:00 Labetalol HCl (Normodyne) 100 mg BID PO ; Start 01/03/17 at 09:00; Status Future Hold Multivit/Ca Carb/ B Cmplx/FA/Prenat (Sommer-Samantha) 1 tab DAILY PO Last administered on 01/03/17 08:33; Admin Dose 1 TAB; Start 01/03/17 at 09:00 Nifedipine (Procardia Xl) 60 mg DAILY PO Last administered on 01/03/17 08:34 ; Admin Dose 60 MG; Start 01/03/17 at 09:00 Topiramate (Topamax Sprinkle) 25 mg BID PO Last administered on 01/03/17 12: 16; Admin Dose 25 MG; Start 01/03/17 at 09:00 Apixaban (Eliquis) 5 mg BID PO ; Start 01/03/17 at 21:00 BHARAT BLACK MD Jan 03, 2017 14:01
[2017-01-03] MEDS ORDERED: DIPHENHYDRAMINE 50 MG INJ ONE (16:12)
[2017-01-03] MEDS: DIPHENHYDRAMINE 50 MG INJ IV SCH (16:28)
--- NOTE | 2017-01-03 18:35 | CONS ---
Date/Time of Note Date/Time of Note DATE: 01/03/17 TIME: 18:33 Assessment/Plan Assessment/Plan Chief Complaint/Hosp Course ESRD HTN HYPERKALEMIA DVT LEFT LOWER EX ANEMIA MSSA PLAN HD CONSIDER PERITONEAL CATH PLACEMENT AND DIALYSIS IF PT AGREES Problems: Consultation Date/Type/Reason Admit Date/Time Jan 02, 2017 at 22:09 Initial Consult Date Type of Consultation: renal [id number] HR Interval Summary Constitutional: other (leg edema+) Exam/Review of Systems Vital Signs Vitals Vital Signs Date Time Temp Pulse Resp B/P Pulse Ox O2 Delivery O2 Flow Rate FiO2 01/03/17 18:24 88 15 01/03/17 14:08 97.5 137/89 98 01/03/17 00:31 Room Air Exam Neck: supple Respiratory: clear to auscultation Cardiovascular: regular rate and rhythm Gastrointestinal: bowel sounds (+), soft Musculoskeletal: range of motion (pain+) Extremities: edema (++) Neurological: WORLD LANGUAGE TEACHER II-XII intact Results Result Diagram: 01/03/17 0543 01/03/17 0544 Results 24 hrs Laboratory Tests Test 01/02/17 20:14 01/03/17 05:43 01/03/17 05:44 White Blood Count 8.3 # 7.7 Red Blood Count 2.70 L 2.43 L Hemoglobin 8.0 L 7.4 L Hematocrit 25.6 L 22.8 L Mean Corpuscular Volume 94.8 93.8 Mean Corpuscular Hemoglobin 29.6 30.5 Mean Corpuscular Hemoglobin Concent 31.3 L 32.5 Red Cell Distribution Width 15.9 H 15.4 H Platelet Count 272 # 248 Mean Platelet Volume 10.8 H 10.8 H Neutrophils % 71.9 71.6 Lymphocytes % 11.4 L 9.8 L Monocytes % 7.0 9.1 Eosinophils % 9.1 H 8.7 H Basophils % 0.4 0.4 Nucleated Red Blood Cells % 0.0 0.0 Neutrophils # 6.0 5.5 Lymphocytes # 1.0 0.8 Monocytes # 0.6 0.7 Eosinophils # 0.8 H 0.7 H Basophils # 0.0 0.0 Nucleated Red Blood Cells # 0.0 0.0 Sodium Level 139 142 Potassium Level 5.4 H 4.9 Chloride Level 95 L 98 Carbon Dioxide Level 19 L 21 Anion Gap 30 H 28 H Blood Urea Nitrogen 114 H 113 H Creatinine 15.74 H 16.45 H Glucose Level 92 97 Calcium Level 8.8 8.9 Total Bilirubin 0.0 L 0.0 L Direct Bilirubin 0.00 0.00 Indirect Bilirubin 0.0 0.0 Aspartate Amino Transf (AST/SGOT) 24 23 Alanine Aminotransferase (ALT/SGPT) 14 16 Alkaline Phosphatase 94 79 Total Protein 9.0 H 8.1 Albumin 4.5 3.8 Globulin 4.50 H 4.30 H Albumin/Globulin Ratio 1.00 0.88 Phosphorus Level 11.0 H Medications Medications Current Medications Ondansetron HCl (Zofran Inj) 4 mg Q6H PRN IV NAUSEA AND/OR VOMITING; Start at 23:00 Acetaminophen (Tylenol Tab) 650 mg Q6H PRN PO PAIN LEVEL 1-3 OR FEVER; Start 01/02/17 at 23:00 Morphine Sulfate (morphine) 2 mg Q4H PRN IV SEVERE PAIN LEVEL 7-10 Last administered on 01/03/17 13:29; Admin Dose 2 MG; Start 01/02/17 at 23:00 Docusate Sodium (Colace) 100 mg Q12H PRN PO CONSTIPATION; Start 01/02/17 at 23 :00 Bisacodyl (Dulcolax) 5 mg DAILY PRN PO CONSTIPATION; Start 01/02/17 at 23:00 Aspirin (Aspirin) 81 mg DAILY PO Last administered on 01/03/17 08:33; Admin Dose 81 MG; Start 01/03/17 at 09:00 Carvedilol (Coreg) 12.5 mg BID PO Last administered on 01/03/17 08:34; Admin Dose 12.5 MG; Start 01/03/17 at 09:00 Clonidine (Catapres) 0.2 mg BID PO Last administered on 01/03/17 08:35; Admin Dose 0.2 MG; Start 01/03/17 at 09:00 Folic Acid (Folic Acid) 1 mg DAILY PO Last administered on 01/03/17 08:33; Admin Dose 1 MG; Start 01/03/17 at 09:00 Furosemide (Lasix) 20 mg DAILY PO Last administered on 01/03/17 08:35; Admin Dose 20 MG; Start 01/03/17 at 09:00 Hydralazine HCl (Apresoline) 50 mg Q12 PRN PO FOR SBP ABOVE 170 Last administered on 01/03/17 04:25; Admin Dose 50 MG; Start 01/02/17 at 23:00 Labetalol HCl (Normodyne) 100 mg BID PO ; Start 01/03/17 at 09:00; Status Future Hold Multivit/Ca Carb/ B Cmplx/FA/Prenat (Sommer-Samantha) 1 tab DAILY PO Last administered on 01/03/17 08:33; Admin Dose 1 TAB; Start 01/03/17 at 09:00 Nifedipine (Procardia Xl) 60 mg DAILY PO Last administered on 01/03/17 08:34 ; Admin Dose 60 MG; Start 01/03/17 at 09:00 Topiramate (Topamax Sprinkle) 25 mg BID PO Last administered on 01/03/17 12: 16; Admin Dose 25 MG; Start 01/03/17 at 09:00 Apixaban (Eliquis) 5 mg BID PO ; Start 01/03/17 at 21:00 MIKE VEGA MD Jan 03, 2017 18:35
--- NOTE | 2017-01-03 20:22 | CONS ---
DATE OF ADMISSION: 01/02/2017 DATE OF CONSULTATION: NEPHROLOGY CONSULTATION Thank you, Dr. Stephen Gaffney, for kindly asking me to see this patient in nephrology consultation. HISTORY OF PRESENT ILLNESS: The patient is a young female who was recently discharged from this hospital. The patient was discharged with a diagnosis of malfunctioning dialysis catheter. The patient previously had exchange of the left common femoral vein tunneled dialysis catheter to a Aris catheter. The patient has methicillin-sensitive Staph aureus bacteremia. The patient had venoplasty of the left common femoral vein, external iliac vein, common iliac vein. The patient has ejection fraction 55% to 60%. The patient's other diagnoses include hypertension, history of noncompliance. The patient had a partially healed fracture of the base of the 5th metatarsal. The patient has had extrinsic compression of the left iliac vein by the left common iliac artery. ALLERGY HISTORY: VANCOMYCIN. SOCIAL HISTORY: Positive for smoking. History of alcohol abuse and drug abuse in the past. MEDICATION HISTORY: Listed as the patient is on: 1. Eliquis. 2. Aspirin. 3. Coreg. 4. Cefazolin. 5. Clonidine. 6. Folic acid. 7. Lasix. 8. Hydralazine. 9. Labetalol. 10. Multiple vitamins. 11. Nifedipine. 12. Renvela. 13. Topamax. REVIEW OF SYSTEMS: HEENT: Unremarkable. RESPIRATORY: Unremarkable. CARDIOVASCULAR: No chest pain or palpitation. ABDOMEN: Complaining of dyspepsia. No hematemesis or melena. EXTREMITIES: Swelling of both lower extremities, more on the left than right. CENTRAL NERVOUS SYSTEM: Unremarkable. PHYSICAL EXAMINATION: GENERAL: The patient is an anasarcic-looking female. VITAL SIGNS: Pulse 80, blood pressure 137/89. HEENT: Head is atraumatic, normocephalic. Pupils equal, reactive to light. NECK: Supple, no JVD. LUNGS: With basilar rales. CARDIOVASCULAR: S1, S2 are normal. ABDOMEN: Soft. Bowel sounds present. No palpable mass. EXTREMITIES: No cyanosis, clubbing. Edema of both lower extremities, left lower extremity more than the right. The patient has a catheter in the left groin noted. CENTRAL NERVOUS SYSTEM: The patient is awake, alert, moving both upper and lower extremities without any deficit. LABORATORY DATA: Hematocrit 22.8, platelet count of 248. Sodium 142, potassium 5.6, BUN of 113, creatinine 16.45, . Extremity venous study: Acute deep venous thrombosis of the left common femoral vein, superficial thrombosis of the upper left greater saphenous vein. IMPRESSION: 1. Acute deep venous thrombosis of the left lower extremity. 2. Hyperkalemia. 3. End-stage renal disease. 4. Anemia. 5. Hypertension. 6. Vasculopathy. PLAN: The plan at this point is to continue renal diet. Continue blood pressure medication. Currently, the patient is on Tylenol. The patient is on apixaban. The patient is on aspirin, bisacodyl, Coreg, cefazolin, clonidine, diphenhydramine, docusate sodium, folic acid, Lasix, hydralazine, labetalol, morphine, multiple vitamins. The patient is on nifedipine, Zofran, Renvela, Topamax. The patient will have deep venous thrombosis treated of the lower extremity. Ideally, the patient's left groin catheter has to be removed and possibly placed either in the right groin or in the neck area, subclavian vein or IJ. If not possible, the patient should consider having a peritoneal dialysis catheter and initiation of peritoneal dialysis. The patient's home situation does not allow that to be feasible at this point, but the patient will make arrangement and then consultation will be obtained either from vascular surgery or radiology to place a peritoneal dialysis catheter if no access can be obtained in the right groin or both upper extremities, subclavian vein or internal jugular vein. Thank you, Dr. Stephen Gaffney and Dr. Radha Botello, for kindly asking me to see this patient in nephrology consultation. Case discussed with Dr. Mark Grimes. Dictated By: MIKE VEGA MD BS/NTS Conf#: [id number] DID#: [id number] CC: STEPHEN GAFFNEY MD;*EndCC* MTDD
[2017-01-03] MEDS ORDERED: APIXABAN 5 MG TABLET PO SCH (21:00)
[2017-01-03] MEDS ORDERED: CEFAZOLIN 2 GM/50 ML (PMX) 50 ML IVPB SCH (23:45)
[2017-01-04] MEDS: morphine 2 MG INJ IV PRN ×4 (00:50→18:05)
[2017-01-04 02:11] VITALS: BP 110/60; RESP 18
[2017-01-04 07:26] VITALS: BP 102/59; RESP 18
[2017-01-04] MEDS ORDERED: HEPARIN 1000 UNITS/ML 10 ML INJ IV ONE ×3 (08:30→09:30)
[2017-01-04] MEDS ORDERED: HEPARIN 1000 UNITS/ML 10 ML INJ IV PRN ×3 (08:30→09:30)
[2017-01-04] MEDS: TOPIRAMATE SPRINKLE 25 MG CAP PO SCH ×2 (09:02→20:25)
[2017-01-04] MEDS: MULTIVIT/CA CARB/B CMPLX/FA TAB PO SCH (09:02)
[2017-01-04] MEDS: FOLIC ACID 1 MG TAB PO SCH (09:02)
[2017-01-04] MEDS: SEVELAMER 800 MG TAB PO SCH ×3 (09:02→18:08)
[2017-01-04] MEDS: ASPIRIN 81 MG TAB PO SCH (09:02)
[2017-01-04] MEDS: FUROSEMIDE 20 MG TAB PO SCH (09:04)
[2017-01-04 09:07] LABS: BASOPHILS % 0.3 % (0.0-2.0); EOSINOPHILS # 0.4 10^3/ul (0.0-0.5); EOSINOPHILS % 6.1 % (0.0-7.0); HEMATOCRIT 23.9 % (37.0-47.0); HEMOGLOBIN 7.6 g/dl (12.0-16.0); LYMPHOCYTES # 0.8 10^3/ul (0.8-2.9); LYMPHOCYTES % 14.1 % (15.0-51.0); MEAN CORPUSCULAR HEMOGLOBIN 30.2 pg (29.0-33.0); MEAN CORPUSCULAR HGB CONC 31.8 g/dl (32.0-37.0); MEAN CORPUSCULAR VOLUME 94.8 fl (82.0-101.0); MEAN PLATELET VOLUME 10.3 fl (7.4-10.4); MONOCYTE # 0.7 10^3/ul (0.3-0.9); MONOCYTES % 11.3 % (0.0-11.0); NEUTROPHIL # 3.9 10^3/ul (1.6-7.5); PLATELET COUNT 227 10^3/UL (140-415); RED BLOOD COUNT 2.52 10^6/ul (4.20-5.40); RED CELL DISTRIBUTION WIDTH 15.7 % (11.5-14.5); WHITE BLOOD COUNT 5.7 10^3/ul (4.8-10.8)
[2017-01-04] MEDS: NIFEdipine (XL) 60 MG TAB PO SCH (09:08)
[2017-01-04 09:10] LABS: INR 1.2; PROTIME 15.3 Sec (12.2-14.2); PT RATIO 1.2
[2017-01-04 09:11] LABS: PARTIAL THROMBOPLASTIN TIME 46.3 Sec (25.0-35.0)
[2017-01-04] MEDS: HEPARIN 25000 UNITS/250 ML 250 ML IV SCH (10:56)
--- NOTE | 2017-01-04 12:02 | PN ---
Date/Time of Note Date/Time of Note DATE: 01/04/17 TIME: 11:58 Assessment/Plan Lines/Catheters IV [facility]ter [facility]from [facility]): PERMACATH Assessment/Plan Chief Complaint/Hosp Course -Endstage renal disease and central occlusion and caval thrombosis: It seems that the patient's left common femoral vein Perm catheter is functioning well; however, the patient has progressed in terms of her left lower extremity deep venous thrombosis. Patient did have deep venous thrombosis findings in the common femoral vein that was identified when we had done her angiogram about 2 weeks ago; therefore, I would not necessarily say that it is an acute finding. However, the patient does have superficial thrombophlebitis of her left greater saphenous vein and she does have calf tenderness with edema of 2+ to 3+ in that segment At the moment, would recommend for the patient to consider allowing us to remove her left groin Perm catheter and attempting a new access for her. She wants this procedure to be done under general anesthesia. Further, we may have to place a new catheter in her right common femoral vein if she needs HD temporarily. We also had discussion of a possible peritoneal dialysis catheter with her and resource teacher and she will let us know if that is an option that she can comply with. There is a question the patient may not have a place to live and may be an issue for followup as that is one of the requirements for peritoneal dialysis catheter. I would recommend for the patient to keep her left lower extremity elevated for now. Transition the patient at the moment from Eliquis to heparin drip in order for us to remove her catheter and place a new Perm catheter/peritoneal dialysis for her. Discussed findings, plan and management with the patient, she understands. Thank you for allowing us to partake in the care of your patient. Please call with any questions. Problems: Subjective 24 Hr Interval Summary no new events overnight, some pain with LLE Exam/Review of Systems Vital Signs Vitals Vital Signs Date Time Temp Pulse Resp B/P Pulse Ox O2 Delivery O2 Flow Rate FiO2 01/04/17 07:26 97.8 76 18 102/59 97 01/03/17 00:31 Room Air Intake and Output 01/03/17 01/03/17 01/04/17 14:59 22:59 06:59 Intake Total 1080 ml 1000 ml Output Total 5000 ml Balance -3920 ml 1000 ml Exam Free Text/Dictation GENERAL: She is alert and oriented x3. PULMONARY: Clear to auscultation bilaterally. CARDIOVASCULAR: S1, S2 present. ABDOMEN: Soft, nontender, nondistended. Bowel sounds positive. Truncal obesity. RIGHT LOWER EXTREMITY: Palpable femoral pulse, faint pedal pulse. Motor, sensory intact. Cap refill 2 to 3 seconds. LEFT LOWER EXTREMITY: Palpable femoral pulse. Groin incision with marco intact and dry. Faint pedal pulse. Motor and sensory intact. However, the patient does have edema of the lower leg, about 2 to 3+ and tender upon palpation. Perm catheter intact and functional Results Result Diagram: 01/04/17 0839 01/03/17 0544 JULISSA NI MD Jan 04, 2017 12:02
--- NOTE | 2017-01-04 13:05 | CONS ---
DATE OF ADMISSION: 01/02/2017 DATE OF CONSULTATION: 01/04/2017 REASON FOR CONSULTATION: Preoperative evaluation prior to placement of peritoneal dialysis catheter . REQUESTING PHYSICIAN: Dr. Grimes from the vascular surgery service. HISTORY OF PRESENT ILLNESS: Ms. Taylor is a 31-year-old female with history of end-stage renal di sease on hemodialysis through a left groin dialysis catheter, complicated by lower extremity has swe lling and DVT with possible external compression of the iliac vein, migraine headaches, hypertension , multiple failed chest wall catheters, who had recently been admitted in December and at that time had a normal EF by echo and negative troponins. The patient now re-presents with significant swelli ng of her left lower extremity and documented DVT by venous ultrasound of the left common femoral ve in. The patient since arrival has had relatively stable vital signs, systolic blood pressures 102 t o 126/59 to 72, pulse in 80s and 90s. The patient denies chest pain or significant shortness of dilip ath. PAST MEDICAL HISTORY: As above in HPI. MEDICATIONS CURRENTLY IN HOSPITAL: 1. Heparin. 2. Ancef. 3. Benadryl. 4. Aspirin 81 mg daily. 5. Carvedilol 12.5 mg p.o. b.i.d. 6. Clonidine 0.2 mg p.o. b.i.d. 7. Lasix 20 mg daily. 8. Folic acid 1 mg daily. 9. Multi-vitamins. 10. Procardia 60 mg daily. 11. Topamax 25 mg p.o. b.i.d. 12. Renagel p.r.n. 13. Zofran p.r.n. 14. Tylenol p.r.n. 15. Morphine p.r.n. 16. Colace p.r.n. 17. Hydralazine p.r.n. ALLERGIES: VANCOMYCIN. SOCIAL HISTORY: No tobacco, ETOH or illicit drug use. FAMILY HISTORY: No history of sudden cardiac or early CAD. REVIEW OF SYSTEMS: As above in HPI. CONSTITUTIONAL: No fevers, chills. PULMONARY: No current shortness of breath. CARDIOVASCULAR: No current chest pain. GASTROINTESTINAL: No vomiting. GENITOURINARY: No hematuria. End-stage renal disease. PSYCHIATRIC: Possible anxiety. NEUROLOGIC: No documented history of CVA. ENDOCRINE: No documented history of diabetes mellitus. PHYSICAL EXAMINATION: VITAL SIGNS: Temperature of 97.8, blood pressure 102/59, pulse 76, respiratory 18, saturating 97%. GENERAL: The patient is alert, awake, complaining of left lower extremity pain, swelling. NECK: JVP approximately 9 cm of water. CHEST: Fair movement throughout with decreased breath sounds at bases bilaterally. HEART: Regular rate and rhythm. Normal S1, S2, I/ systolic murmur, nondisplaced PMI. ABDOMEN: Positive bowel sounds, soft. EXTREMITIES: Significant left lower extremity swelling greater than right lower extremity swelling, 1+ pulses bilaterally, posterior tibial. LABORATORY DATA: Most recent from today, white count 5.7, hemoglobin 7.6, platelet count of 227. S odium 142, potassium 4.9, creatinine of 16.45, BUN 113, AST 23, ALT 16. INR 1.2. IMAGING STUDIES: As above in HPI. No further imaging studies for my review at this time. ECG: No electrocardiograms for my review at this time. IMPRESSION: 1. Preoperative evaluation prior to placement of a peritoneal dialysis catheter. 2. Hypertension, under reasonable control. 3. Left lower extremity deep venous thrombosis. 4. Anemia. 5. Prior failed chest wall catheters. RECOMMENDATIONS: 1. At this time, would check a baseline EKG now and a repeat EKG in the morning to assess for any s ignificant changes. Would send cardiac markers q.6h. x2 to ensure the patient has not had any recen t coronary due to the patient's upcoming surgery. 2. Would continue the patient's current heparin as well as aspirin and continue the patient's Carve dilol and Procardia for control of blood pressure with clonidine if necessary, with possible weaning of that medication. 3. The patient's troponins return negative x2, then at that time, the patient was having no cardiac contraindication to proceeding to the OR on current medications, including beta kwaku continued p re and postoperatively, at moderate risk. Would check a postoperative 12-lead EKG to assess for an y significant changes and watch closely for signs and symptoms of cardiovascular complications inclu ding but not limited to the onset of chest pain, shortness of breath, congestive heart failure, unco ntrolled cardiac arrhythmias. 4. Additionally, continue the patient's hemodialysis for volume removal and continue the patient's heparin with probable transition to oral anticoagulant for treatment of deep venous thrombosis. Dictated By: ETHAN JUAN/BRADLEY Conf#: [id number] DID#: [id number] CC: SWATI GAFFNEY MD;*End*
[2017-01-04 14:18] VITALS: BP 128/70; RESP 18
--- NOTE | 2017-01-04 16:31 | PN ---
Date/Time of Note Date/Time of Note DATE: 01/04/17 TIME: 16:29 Assessment/Plan VTE Prophylaxis VTE Prophylaxis Intervention: SCD's Lines/Catheters IV Catheter Type (from Nrsg): PERMACATH Assessment/Plan Assessment/Plan 31 yo F with ESRD on HD, recent admission for MSSA CLABSI/tunnel infection, found to have large LLE DVT at that time readmitted for worsening LLE pain. Imaging with worsening of clot despite anticoagulation. #LLE DVT also superficial thrombophlebitis: management as per vascular surgery. Per his rec, increased Eliquis dose to 5 mg BID #MSSA bacteremia: 2 weeks of treatment advised from 12.21, end date entered into EMR #ESRD: nephrology on cs for HD-->per vascular, HD line is going to need to come out tomorrow given VTEs. Plan is for PD catheter placement and initiation of PD via nephrology #pain intolerance: cont current pain regimen, may need to reach out to her outpatient pain medicine specialist. Subjective 24 Hr Interval Summary Free Text/Dictation Sleeping when I saw her this AM Exam/Review of Systems Vital Signs Vitals Vital Signs Date Time Temp Pulse Resp B/P Pulse Ox O2 Delivery O2 Flow Rate FiO2 01/04/17 14:18 99.0 80 18 128/70 97 01/03/17 00:31 Room Air Intake and Output 01/03/17 01/03/17 01/04/17 15:00 23:00 07:00 Intake Total 1080 ml 1000 ml Output Total 5000 ml Balance -3920 ml 1000 ml Exam Sleeping resp nonlabored no abd distension no rashes legs covered Results Result Diagram: 01/04/17 0839 01/03/17 0544 Results 24 hrs Laboratory Tests Test 01/04/17 08:39 White Blood Count 5.7 # Red Blood Count 2.52 L Hemoglobin 7.6 L Hematocrit 23.9 L Mean Corpuscular Volume 94.8 Mean Corpuscular Hemoglobin 30.2 Mean Corpuscular Hemoglobin Concent 31.8 L Red Cell Distribution Width 15.7 H Platelet Count 227 Mean Platelet Volume 10.3 Neutrophils % 68.0 Lymphocytes % 14.1 L Monocytes % 11.3 H Eosinophils % 6.1 Basophils % 0.3 Nucleated Red Blood Cells % 0.0 Neutrophils # 3.9 Lymphocytes # 0.8 Monocytes # 0.7 Eosinophils # 0.4 Basophils # 0.0 Nucleated Red Blood Cells # 0.0 Prothrombin Time 15.3 H Prothrombin Time Ratio 1.2 INR International Normalized Ratio 1.20 Activated Partial Thromboplast Time 46.3 H Medications Medications Current Medications Ondansetron HCl (Zofran Inj) 4 mg Q6H PRN IV NAUSEA AND/OR VOMITING; Start at 23:00 Acetaminophen (Tylenol Tab) 650 mg Q6H PRN PO PAIN LEVEL 1-3 OR FEVER; Start 01/02/17 at 23:00 Morphine Sulfate (morphine) 2 mg Q4H PRN IV SEVERE PAIN LEVEL 7-10 Last administered on 01/04/17 13:39; Admin Dose 2 MG; Start 01/02/17 at 23:00 Docusate Sodium (Colace) 100 mg Q12H PRN PO CONSTIPATION; Start 01/02/17 at 23 :00 Bisacodyl (Dulcolax) 5 mg DAILY PRN PO CONSTIPATION; Start 01/02/17 at 23:00 Aspirin (Aspirin) 81 mg DAILY PO Last administered on 01/04/17 09:02; Admin Dose 81 MG; Start 01/03/17 at 09:00 Carvedilol (Coreg) 12.5 mg BID PO Last administered on 01/04/17 09:05; Admin Dose 12.5 MG; Start 01/03/17 at 09:00 Clonidine (Catapres) 0.2 mg BID PO Last administered on 01/03/17 21:58; Admin Dose 0.2 MG; Start 01/03/17 at 09:00 Folic Acid (Folic Acid) 1 mg DAILY PO Last administered on 01/04/17 09:02; Admin Dose 1 MG; Start 01/03/17 at 09:00 Furosemide (Lasix) 20 mg DAILY PO Last administered on 01/04/17 09:04; Admin Dose 20 MG; Start 01/03/17 at 09:00 Hydralazine HCl (Apresoline) 50 mg Q12 PRN PO FOR SBP ABOVE 170 Last administered on 01/03/17 04:25; Admin Dose 50 MG; Start 01/02/17 at 23:00 Labetalol HCl (Normodyne) 100 mg BID PO ; Start 01/03/17 at 09:00; Status Future Hold Multivit/Ca Carb/ B Cmplx/FA/Prenat (Sommer-Samantha) 1 tab DAILY PO Last administered on 01/04/17 09:02; Admin Dose 1 TAB; Start 01/03/17 at 09:00 Nifedipine (Procardia Xl) 60 mg DAILY PO Last administered on 01/04/17 09:08 ; Admin Dose 60 MG; Start 01/03/17 at 09:00 Topiramate (Topamax Sprinkle) 25 mg BID PO Last administered on 01/04/17 09: 02; Admin Dose 25 MG; Start 01/03/17 at 09:00 Apixaban (Eliquis) 5 mg BID PO Last administered on 01/03/17 21:58; Admin Dose 5 MG; Start 01/03/17 at 21:00; Status Future Hold Diphenhydramine HCl (Benadryl) 50 mg Q6H PRN PO ITCHING; Start 01/04/17 at 15: 30 BHARAT BLACK MD Jan 04, 2017 16:31
[2017-01-04] MEDS: DIPHENHYDRAMINE 50 MG CAP PO PRN (18:12)
[2017-01-04 18:50] LABS: CK-MB 0.25 ng/ml (0.0-2.4); TROPONIN-I 0.013 ng/ml (0.00-0.12)
--- NOTE | 2017-01-04 19:01 | CONS ---
Date/Time of Note Date/Time of Note DATE: 01/04/17 TIME: 18:59 Assessment/Plan Assessment/Plan Chief Complaint/Hosp Course 1. Acute deep venous thrombosis of the left lower extremity. 2. Hyperkalemia.better 3. End-stage renal disease. 4. Anemia. 5. Hypertension. 6. Vasculopathy. plan pd cath placement by ir pt agrees continue hd for now Problems: Consultation Date/Type/Reason Admit Date/Time Jan 02, 2017 at 22:09 Type of Consultation: renal [id number] HR Interval Summary Constitutional: no complaints, No chills Exam/Review of Systems Vital Signs Vitals Vital Signs Date Time Temp Pulse Resp B/P Pulse Ox O2 Delivery O2 Flow Rate FiO2 01/04/17 14:18 99.0 80 18 128/70 97 01/03/17 00:31 Room Air Intake and Output 01/03/17 01/03/17 01/04/17 15:00 23:00 07:00 Intake Total 1080 ml 1000 ml Output Total 5000 ml Balance -3920 ml 1000 ml Exam Respiratory: clear to auscultation Cardiovascular: regular rate and rhythm Gastrointestinal: bowel sounds (+), soft Extremities: edema (++) Neurological: SKEIN BANDER II-XII intact Results Result Diagram: 01/04/17 0839 01/03/17 0544 Results 24 hrs Laboratory Tests Test 01/04/17 08:39 01/04/17 18:05 White Blood Count 5.7 # Red Blood Count 2.52 L Hemoglobin 7.6 L Hematocrit 23.9 L Mean Corpuscular Volume 94.8 Mean Corpuscular Hemoglobin 30.2 Mean Corpuscular Hemoglobin Concent 31.8 L Red Cell Distribution Width 15.7 H Platelet Count 227 Mean Platelet Volume 10.3 Neutrophils % 68.0 Lymphocytes % 14.1 L Monocytes % 11.3 H Eosinophils % 6.1 Basophils % 0.3 Nucleated Red Blood Cells % 0.0 Neutrophils # 3.9 Lymphocytes # 0.8 Monocytes # 0.7 Eosinophils # 0.4 Basophils # 0.0 Nucleated Red Blood Cells # 0.0 Prothrombin Time 15.3 H Prothrombin Time Ratio 1.2 INR International Normalized Ratio 1.20 Activated Partial Thromboplast Time 46.3 H Creatine Kinase 72 Creatine Kinase Index 0.3 Creatinine Kinase MB (Mass) 0.25 Troponin I 0.013 Medications Medications Current Medications Ondansetron HCl (Zofran Inj) 4 mg Q6H PRN IV NAUSEA AND/OR VOMITING; Start at 23:00 Acetaminophen (Tylenol Tab) 650 mg Q6H PRN PO PAIN LEVEL 1-3 OR FEVER; Start 01/02/17 at 23:00 Morphine Sulfate (morphine) 2 mg Q4H PRN IV SEVERE PAIN LEVEL 7-10 Last administered on 01/04/17 18:05; Admin Dose 2 MG; Start 01/02/17 at 23:00 Docusate Sodium (Colace) 100 mg Q12H PRN PO CONSTIPATION; Start 01/02/17 at 23 :00 Bisacodyl (Dulcolax) 5 mg DAILY PRN PO CONSTIPATION; Start 01/02/17 at 23:00 Aspirin (Aspirin) 81 mg DAILY PO Last administered on 01/04/17 09:02; Admin Dose 81 MG; Start 01/03/17 at 09:00 Carvedilol (Coreg) 12.5 mg BID PO Last administered on 01/04/17 09:05; Admin Dose 12.5 MG; Start 01/03/17 at 09:00 Clonidine (Catapres) 0.2 mg BID PO Last administered on 01/03/17 21:58; Admin Dose 0.2 MG; Start 01/03/17 at 09:00 Folic Acid (Folic Acid) 1 mg DAILY PO Last administered on 01/04/17 09:02; Admin Dose 1 MG; Start 01/03/17 at 09:00 Furosemide (Lasix) 20 mg DAILY PO Last administered on 01/04/17 09:04; Admin Dose 20 MG; Start 01/03/17 at 09:00 Hydralazine HCl (Apresoline) 50 mg Q12 PRN PO FOR SBP ABOVE 170 Last administered on 01/03/17 04:25; Admin Dose 50 MG; Start 01/02/17 at 23:00 Labetalol HCl (Normodyne) 100 mg BID PO ; Start 01/03/17 at 09:00; Status Future Hold Multivit/Ca Carb/ B Cmplx/FA/Prenat (Sommer-Samantha) 1 tab DAILY PO Last administered on 01/04/17 09:02; Admin Dose 1 TAB; Start 01/03/17 at 09:00 Nifedipine (Procardia Xl) 60 mg DAILY PO Last administered on 01/04/17 09:08 ; Admin Dose 60 MG; Start 01/03/17 at 09:00 Topiramate (Topamax Sprinkle) 25 mg BID PO Last administered on 01/04/17 09: 02; Admin Dose 25 MG; Start 01/03/17 at 09:00 Apixaban (Eliquis) 5 mg BID PO Last administered on 01/03/17 21:58; Admin Dose 5 MG; Start 01/03/17 at 21:00; Status Future Hold Diphenhydramine HCl (Benadryl) 50 mg Q6H PRN PO ITCHING Last administered on 18:12; Admin Dose 50 MG; Start 01/04/17 at 15:30 MIKE VEGA MD Jan 04, 2017 19:01
[2017-01-04 19:24] VITALS: BP 121/72; RESP 18
[2017-01-04] MEDS ORDERED: morphine 2 MG INJ IV STA (20:34)
[2017-01-05] VITALS (19 sets, daily range): BP systolic 112–149; BP diastolic 60–91; PULSE 64–76; RESP 12–20
[2017-01-05] MEDS: morphine 2 MG INJ IV PRN ×5 (00:59→21:38)
[2017-01-05 01:31] LABS: CREATINE KINASE 61 IU/L (23-200)
[2017-01-05 01:44] LABS: CK-MB 0.33 ng/ml (0.0-2.4)
[2017-01-05 01:45] LABS: TROPONIN-I < 0.012 ng/ml (0.00-0.12)
[2017-01-05] MEDS: HEPARIN 25000 UNITS/250 ML 250 ML IV SCH (04:56)
[2017-01-05] MEDS: DIPHENHYDRAMINE 50 MG CAP PO PRN (04:57)
[2017-01-05 07:06] LABS: ALBUMIN 3.9 g/dl (3.3-4.9); ALBUMIN/GLOBULIN RATIO 0.92; CALCIUM 8.7 mg/dl (8.4-10.2); POTASSIUM 4.9 mmol/L (3.5-5.1); TOTAL PROTEIN 8.1 g/dl (6.1-8.1)
[2017-01-05 07:19] LABS: CREATININE 14.86 mg/dl (0.44-1.00)
[2017-01-05] MEDS: TOPIRAMATE SPRINKLE 25 MG CAP PO SCH ×2 (08:34→21:11)
[2017-01-05] MEDS: MULTIVIT/CA CARB/B CMPLX/FA TAB PO SCH (08:34)
[2017-01-05] MEDS: FUROSEMIDE 20 MG TAB PO SCH (08:35)
[2017-01-05] MEDS: SEVELAMER 800 MG TAB PO SCH ×3 (08:35→18:00)
[2017-01-05] MEDS: NIFEdipine (XL) 60 MG TAB PO SCH (08:35)
[2017-01-05] MEDS: FOLIC ACID 1 MG TAB PO SCH (08:35)
[2017-01-05] MEDS: ASPIRIN 81 MG TAB PO SCH (08:35)
[2017-01-05] MEDS: DIPHENHYDRAMINE 50 MG INJ IV SCH (11:53)
--- NOTE | 2017-01-05 15:14 | RADRPT ---
Vent Rate: 73 bpm RR Interval: 0 msec HI Interval: 202 msec QRS Duration: 100 msec QT Interval: 426 msec QTC Interval: 469 msec P-R-T [place]: 57 - 16 - 72 degrees Normal sinus rhythm Septal infarct , age undetermined Abnormal ECG Electronically Signed By: Charles Hall [id number]
--- NOTE | 2017-01-05 15:15 | RADRPT ---
Vent Rate: 63 bpm RR Interval: 0 msec VA Interval: 212 msec QRS Duration: 100 msec QT Interval: 452 msec QTC Interval: 462 msec P-R-T [place]: 54 - 52 - 79 degrees Sinus rhythm with 1st degree AV block Cannot rule out Anterior infarct , age undetermined Abnormal ECG Electronically Signed By: Charles Hall [id number]
--- NOTE | 2017-01-05 16:22 | CONS ---
Date/Time of Note Date/Time of Note DATE: 01/05/17 TIME: 16:20 Assessment/Plan Assessment/Plan Chief Complaint/Hosp Course 1. Acute deep venous thrombosis of the left lower extremity. 2. Hyperkalemia.better 3. End-stage renal disease. 4. Anemia. 5. Hypertension. 6. Vasculopathy. 7 uremia wprurites plan pd cath placement by ir pt agrees continue hd for now benadryl Problems: Consultation Date/Type/Reason Admit Date/Time Jan 05, 2017 at 14:32 Type of Consultation: renal [id number] 24 HR Interval Summary Constitutional: other (c/o itching+) Exam/Review of Systems Vital Signs Vitals Vital Signs Date Time Temp Pulse Resp B/P Pulse Ox O2 Delivery O2 Flow Rate FiO2 01/05/17 08:07 98.6 65 16 119/72 98 Room Air Intake and Output 01/04/17 01/04/17 01/05/17 15:00 23:00 07:00 Intake Total 954 ml 116 ml Output Total 200 ml Balance 754 ml 116 ml Exam Neck: supple Respiratory: clear to auscultation Cardiovascular: regular rate and rhythm Gastrointestinal: soft Musculoskeletal: nl extremities to inspection Extremities: normal pulses Results Result Diagram: 01/04/17 0839 01/05/17 0557 Results 24 hrs Laboratory Tests Test 01/04/17 18:05 01/05/17 00:50 01/05/17 00:56 01/05/17 05:57 Activated Partial Thromboplast Time 77.1 *H 70.2 *H 58.8 H Creatine Kinase 72 61 Creatine Kinase Index 0.3 0.5 Creatinine Kinase MB (Mass) 0.25 0.33 Troponin I 0.013 < 0.012 Sodium Level 141 Potassium Level 4.9 Chloride Level 100 Carbon Dioxide Level 22 Anion Gap 24 H Blood Urea Nitrogen 102 H Creatinine 14.86 H Glucose Level 98 Calcium Level 8.7 Total Bilirubin 0.0 L Direct Bilirubin 0.00 Indirect Bilirubin 0.0 Aspartate Amino Transf (AST/SGOT) 18 Alanine Aminotransferase (ALT/SGPT) 11 L Alkaline Phosphatase 81 Total Protein 8.1 Albumin 3.9 Globulin 4.20 H Albumin/Globulin Ratio 0.92 Medications Medications Current Medications Ondansetron HCl (Zofran Inj) 4 mg Q6H PRN IV NAUSEA AND/OR VOMITING; Start at 23:00 Acetaminophen (Tylenol Tab) 650 mg Q6H PRN PO PAIN LEVEL 1-3 OR FEVER; Start 01/02/17 at 23:00 Morphine Sulfate (morphine) 2 mg Q4H PRN IV SEVERE PAIN LEVEL 7-10 Last administered on 01/05/17 15:58; Admin Dose 2 MG; Start 01/02/17 at 23:00 Docusate Sodium (Colace) 100 mg Q12H PRN PO CONSTIPATION; Start 01/02/17 at 23 :00 Bisacodyl (Dulcolax) 5 mg DAILY PRN PO CONSTIPATION; Start 01/02/17 at 23:00 Aspirin (Aspirin) 81 mg DAILY PO Last administered on 01/05/17 08:35; Admin Dose 81 MG; Start 01/03/17 at 09:00 Carvedilol (Coreg) 12.5 mg BID PO Last administered on 01/05/17 08:34; Admin Dose 12.5 MG; Start 01/03/17 at 09:00 Clonidine (Catapres) 0.2 mg BID PO Last administered on 01/05/17 08:36; Admin Dose 0.2 MG; Start 01/03/17 at 09:00 Folic Acid (Folic Acid) 1 mg DAILY PO Last administered on 01/05/17 08:35; Admin Dose 1 MG; Start 01/03/17 at 09:00 Furosemide (Lasix) 20 mg DAILY PO Last administered on 01/05/17 08:35; Admin Dose 20 MG; Start 01/03/17 at 09:00 Hydralazine HCl (Apresoline) 50 mg Q12 PRN PO FOR SBP ABOVE 170 Last administered on 01/03/17 04:25; Admin Dose 50 MG; Start 01/02/17 at 23:00 Labetalol HCl (Normodyne) 100 mg BID PO ; Start 01/03/17 at 09:00; Status Future Hold Multivit/Ca Carb/ B Cmplx/FA/Prenat (Sommer-Samantha) 1 tab DAILY PO Last administered on 01/05/17 08:34; Admin Dose 1 TAB; Start 01/03/17 at 09:00 Nifedipine (Procardia Xl) 60 mg DAILY PO Last administered on 01/05/17 08:35 ; Admin Dose 60 MG; Start 01/03/17 at 09:00 Topiramate (Topamax Sprinkle) 25 mg BID PO Last administered on 01/05/17 08: 34; Admin Dose 25 MG; Start 01/03/17 at 09:00 Apixaban (Eliquis) 5 mg BID PO Last administered on 01/03/17 21:58; Admin Dose 5 MG; Start 01/03/17 at 21:00; Status Future Hold Diphenhydramine HCl (Benadryl) 25 mg Q8H PRN IV ITCHING; Start 01/05/17 at 11: 30 MIKE VEGA MD Jan 05, 2017 16:22
[2017-01-05] MEDS ORDERED: IOHEXOL 300MG/ML 30 ML BTL ONE (16:28)
[2017-01-05] MEDS ORDERED: HEPARIN 1000 UNITS/ML 10 ML INJ ONE (16:28)
[2017-01-05] MEDS ORDERED: BUPIVACAINE 0.5% (SDV) 30 ML INJ ONE (17:11)
[2017-01-05] MEDS ORDERED: LIDOCAINE 1% (MPF) 30 ML INJ ONE (17:11)
[2017-01-05] MEDS ORDERED: HYDROmorphONE (0.2 MG/ML) 10ML SYG IV PRN ×3 (17:30)
[2017-01-05] MEDS ORDERED: FENTAnyl 50 MCG/ML VIAL IV PRN ×3 (17:30)
[2017-01-05] MEDS ORDERED: DIPHENHYDRAMINE 50 MG INJ IV PRN (17:30)
[2017-01-05] MEDS ORDERED: PROCHLORPERAZINE 10 MG INJ IV PRN (17:30)
[2017-01-05] MEDS ORDERED: MEPERIDINE 25 MG INJ IV PRN (17:30)
[2017-01-05] MEDS ORDERED: ONDANSETRON 4 MG INJ IV PRN (17:30)
--- NOTE | 2017-01-05 17:32 | PN ---
Date/Time of Note Date/Time of Note DATE: 01/05/17 TIME: 17:31 Assessment/Plan VTE Prophylaxis VTE Prophylaxis Intervention: SCD's Lines/Catheters IV Catheter Type (from Nrsg): permacath Assessment/Plan Assessment/Plan 31 yo F with ESRD on HD, recent admission for MSSA CLABSI/tunnel infection, found to have large LLE DVT at that time readmitted for worsening LLE pain. Imaging with worsening of clot despite anticoagulation. #LLE DVT also superficial thrombophlebitis: management as per vascular surgery. Per his rec, increased Eliquis dose to 5 mg BID HD LINE OUT TODAY #MSSA bacteremia: 2 weeks of treatment advised from 12.21, end date entered into EMR #ESRD: nephrology on cs for HD-->PD CATHETER TO BE PLACED TODAY #pain intolerance: cont current pain regimen, may need to reach out to her outpatient pain medicine specialist. possibly dc in AM. will touch base with consultants Subjective 24 Hr Interval Summary Free Text/Dictation Pt not in room at time of my attempted eval Exam/Review of Systems Vital Signs Vitals Vital Signs Date Time Temp Pulse Resp B/P Pulse Ox O2 Delivery O2 Flow Rate FiO2 01/05/17 12:30 76 18 01/05/17 08:07 98.6 119/72 98 Room Air Intake and Output 01/04/17 01/04/17 01/05/17 15:00 23:00 07:00 Intake Total 954 ml 116 ml Output Total 200 ml Balance 754 ml 116 ml Exam pt not in room at time of my attempted eval Results Result Diagram: 01/04/17 0839 01/05/17 0557 Results 24 hrs Laboratory Tests Test 01/04/17 18:05 01/05/17 00:50 01/05/17 00:56 01/05/17 05:57 Activated Partial Thromboplast Time 77.1 *H 70.2 *H 58.8 H Creatine Kinase 72 61 Creatine Kinase Index 0.3 0.5 Creatinine Kinase MB (Mass) 0.25 0.33 Troponin I 0.013 < 0.012 Sodium Level 141 Potassium Level 4.9 Chloride Level 100 Carbon Dioxide Level 22 Anion Gap 24 H Blood Urea Nitrogen 102 H Creatinine 14.86 H Glucose Level 98 Calcium Level 8.7 Total Bilirubin 0.0 L Direct Bilirubin 0.00 Indirect Bilirubin 0.0 Aspartate Amino Transf (AST/SGOT) 18 Alanine Aminotransferase (ALT/SGPT) 11 L Alkaline Phosphatase 81 Total Protein 8.1 Albumin 3.9 Globulin 4.20 H Albumin/Globulin Ratio 0.92 Serum HCG, Qualitative NEGATIVE Medications Medications Current Medications Ondansetron HCl (Zofran Inj) 4 mg Q6H PRN IV NAUSEA AND/OR VOMITING; Start at 23:00 Acetaminophen (Tylenol Tab) 650 mg Q6H PRN PO PAIN LEVEL 1-3 OR FEVER; Start 01/02/17 at 23:00 Morphine Sulfate (morphine) 2 mg Q4H PRN IV SEVERE PAIN LEVEL 7-10 Last administered on 01/05/17 15:58; Admin Dose 2 MG; Start 01/02/17 at 23:00 Docusate Sodium (Colace) 100 mg Q12H PRN PO CONSTIPATION; Start 01/02/17 at 23 :00 Bisacodyl (Dulcolax) 5 mg DAILY PRN PO CONSTIPATION; Start 01/02/17 at 23:00 Aspirin (Aspirin) 81 mg DAILY PO Last administered on 01/05/17 08:35; Admin Dose 81 MG; Start 01/03/17 at 09:00 Carvedilol (Coreg) 12.5 mg BID PO Last administered on 01/05/17 08:34; Admin Dose 12.5 MG; Start 01/03/17 at 09:00 Clonidine (Catapres) 0.2 mg BID PO Last administered on 01/05/17 08:36; Admin Dose 0.2 MG; Start 01/03/17 at 09:00 Folic Acid (Folic Acid) 1 mg DAILY PO Last administered on 01/05/17 08:35; Admin Dose 1 MG; Start 01/03/17 at 09:00 Furosemide (Lasix) 20 mg DAILY PO Last administered on 01/05/17 08:35; Admin Dose 20 MG; Start 01/03/17 at 09:00 Hydralazine HCl (Apresoline) 50 mg Q12 PRN PO FOR SBP ABOVE 170 Last administered on 01/03/17 04:25; Admin Dose 50 MG; Start 01/02/17 at 23:00 Labetalol HCl (Normodyne) 100 mg BID PO ; Start 01/03/17 at 09:00; Status Future Hold Multivit/Ca Carb/ B Cmplx/FA/Prenat (Sommer-Samantha) 1 tab DAILY PO Last administered on 01/05/17 08:34; Admin Dose 1 TAB; Start 01/03/17 at 09:00 Nifedipine (Procardia Xl) 60 mg DAILY PO Last administered on 01/05/17 08:35 ; Admin Dose 60 MG; Start 01/03/17 at 09:00 Topiramate (Topamax Sprinkle) 25 mg BID PO Last administered on 01/05/17 08: 34; Admin Dose 25 MG; Start 01/03/17 at 09:00 Apixaban (Eliquis) 5 mg BID PO Last administered on 01/03/17 21:58; Admin Dose 5 MG; Start 01/03/17 at 21:00; Status Future Hold Diphenhydramine HCl (Benadryl) 25 mg Q8H PRN IV ITCHING; Start 01/05/17 at 11: 30 BHARAT BLACK MD Jan 05, 2017 17:32
[2017-01-05] MEDS ORDERED: LIDOCAINE 2% (SDV) 5 ML INJ ONE (18:09)
[2017-01-05] MEDS ORDERED: PROPOFOL 20 ML ONE (18:09)
[2017-01-05] MEDS ORDERED: MIDAZOLAM 1 MG/ML 2 ML INJ ONE (18:10)
[2017-01-05] MEDS ORDERED: FENTAnyl 50 MCG/ML VIAL ONE ×2 (18:20→19:06)
[2017-01-05] MEDS ORDERED: DEXAMETHASONE 4 MG/ML 1 ML INJ ONE (18:26)
[2017-01-05] MEDS ORDERED: FAMOTIDINE 20 MG INJ ONE (18:26)
[2017-01-05] MEDS ORDERED: ONDANSETRON 4 MG INJ ONE (18:26)
[2017-01-05] MEDS ORDERED: EPHEDrine SULFATE 50 MG/5 ML SYG ONE (18:38)
--- NOTE | 2017-01-05 19:18 | CONS ---
Date/Time of Note Date/Time of Note DATE: 01/05/17 TIME: 19:14 Assessment/Plan Assessment/Plan Chief Complaint/Hosp Course IMPRESSION: 1. Preoperative evaluation prior to placement of a peritoneal dialysis catheter.-negative trop x 2/no change on serial ecg's/Nl EF by most recent echo during alst admission with no contraindicated valve lesions. Thus ok to proceed to OR for placement of PD catheter at moderate CV risk without further noninvasive evaluation 2. Hypertension, under reasonable control. 3. Left lower extremity deep venous thrombosis. 4. Anemia. 5. Prior failed chest wall catheters. Recc: -Continue coreg/asa/procardia -For PD catheter placement today Problems: Consultation Date/Type/Reason Admit Date/Time Jan 04, 2017 at 14:32 Initial Consult Date 01/04/2017 Type of Consultation: cardiology Reason for Consultation Pre-op Referring Provider: JULISSA NI MD Exam/Review of Systems Vital Signs Vitals Vital Signs Date Time Temp Pulse Resp B/P Pulse Ox O2 Delivery O2 Flow Rate FiO2 01/05/17 12:30 76 18 01/05/17 08:07 98.6 119/72 98 Room Air Intake and Output 01/04/17 01/04/17 01/05/17 15:00 23:00 07:00 Intake Total 954 ml 116 ml Output Total 200 ml Balance 754 ml 116 ml Exam Review of Systems: CONSTITUTIONAL: No fevers, chills. PULMONARY: No sob CARDIOVASCULAR: No chest pain/palpitations GASTROINTESTINAL: No nausea/vomiting. GENITOURINARY: No hematuria/dysuria. MUSCULOSKELETAL: No myagias/arthalgias. PSYCHIATRIC: The patient denies depression. NEUROLOGIC: No weakness Constitutional: alert, oriented Head: normocephalic ENMT: mucosa pink and moist Neck: jvd (9 cm water), supple Respiratory: diminished breath sounds (at bases/B) Cardiovascular: regular rate and rhythm Gastrointestinal: non-tender, soft Musculoskeletal: muscle tone (normal) Extremities: pitting pedal edema (L>R severe) Neurological: other (No focal deficits) Results Result Diagram: 01/04/17 0839 01/05/17 0557 Results 24 hrs Laboratory Tests Test 01/05/17 00:50 01/05/17 00:56 01/05/17 05:57 Creatine Kinase 61 Creatine Kinase Index 0.5 Creatinine Kinase MB (Mass) 0.33 Troponin I < 0.012 Activated Partial Thromboplast Time 70.2 *H 58.8 H Sodium Level 141 Potassium Level 4.9 Chloride Level 100 Carbon Dioxide Level 22 Anion Gap 24 H Blood Urea Nitrogen 102 H Creatinine 14.86 H Glucose Level 98 Calcium Level 8.7 Total Bilirubin 0.0 L Direct Bilirubin 0.00 Indirect Bilirubin 0.0 Aspartate Amino Transf (AST/SGOT) 18 Alanine Aminotransferase (ALT/SGPT) 11 L Alkaline Phosphatase 81 Total Protein 8.1 Albumin 3.9 Globulin 4.20 H Albumin/Globulin Ratio 0.92 Serum HCG, Qualitative NEGATIVE Medications Medications Current Medications Ondansetron HCl (Zofran Inj) 4 mg Q6H PRN IV NAUSEA AND/OR VOMITING; Start at 23:00 Acetaminophen (Tylenol Tab) 650 mg Q6H PRN PO PAIN LEVEL 1-3 OR FEVER; Start 01/02/17 at 23:00 Morphine Sulfate (morphine) 2 mg Q4H PRN IV SEVERE PAIN LEVEL 7-10 Last administered on 01/05/17 15:58; Admin Dose 2 MG; Start 01/02/17 at 23:00 Docusate Sodium (Colace) 100 mg Q12H PRN PO CONSTIPATION; Start 01/02/17 at 23 :00 Bisacodyl (Dulcolax) 5 mg DAILY PRN PO CONSTIPATION; Start 01/02/17 at 23:00 Aspirin (Aspirin) 81 mg DAILY PO Last administered on 01/05/17 08:35; Admin Dose 81 MG; Start 01/03/17 at 09:00 Carvedilol (Coreg) 12.5 mg BID PO Last administered on 01/05/17 08:34; Admin Dose 12.5 MG; Start 01/03/17 at 09:00 Clonidine (Catapres) 0.2 mg BID PO Last administered on 01/05/17 08:36; Admin Dose 0.2 MG; Start 01/03/17 at 09:00 Folic Acid (Folic Acid) 1 mg DAILY PO Last administered on 01/05/17 08:35; Admin Dose 1 MG; Start 01/03/17 at 09:00 Furosemide (Lasix) 20 mg DAILY PO Last administered on 01/05/17 08:35; Admin Dose 20 MG; Start 01/03/17 at 09:00 Hydralazine HCl (Apresoline) 50 mg Q12 PRN PO FOR SBP ABOVE 170 Last administered on 01/03/17 04:25; Admin Dose 50 MG; Start 01/02/17 at 23:00 Labetalol HCl (Normodyne) 100 mg BID PO ; Start 01/03/17 at 09:00; Status Future Hold Multivit/Ca Carb/ B Cmplx/FA/Prenat (Sommer-Samantha) 1 tab DAILY PO Last administered on 01/05/17 08:34; Admin Dose 1 TAB; Start 01/03/17 at 09:00 Nifedipine (Procardia Xl) 60 mg DAILY PO Last administered on 01/05/17 08:35 ; Admin Dose 60 MG; Start 01/03/17 at 09:00 Topiramate (Topamax Sprinkle) 25 mg BID PO Last administered on 01/05/17 08: 34; Admin Dose 25 MG; Start 01/03/17 at 09:00 Apixaban (Eliquis) 5 mg BID PO Last administered on 01/03/17 21:58; Admin Dose 5 MG; Start 01/03/17 at 21:00; Status Future Hold Diphenhydramine HCl (Benadryl) 25 mg Q8H PRN IV ITCHING; Start 01/05/17 at 11: 30 ETHAN MCKINLEY Jan 05, 2017 19:18
--- NOTE | 2017-01-05 19:35 | RADRPT ---
PROCEDURE: FLUOROSCOPICALLY-GUIDED PERCUTANEOUS PLACEMENT OF PERITONEAL DIALYSIS CATHETER CLINICAL INDICATION: Chronic renal failure. Peritoneal dialysis catheter required. TECHNIQUE: Prior to the procedure, an informed consent was obtained. Risks including bleeding and infection wer e explained to the patient. The patient understood and was willing to proceed. A procedural pause wa s performed. The patient's name, date of , and procedure to be performed were verified. Prior t o the procedure, 1 gram of Ancef was administered intravenously for prophylaxis. In addition, chlorh exidine was applied to the anterior abdominal wall and anterior pelvic wall, prior to the procedure. Local anesthetic was used at the puncture site and at the site of the tunneling. In addition, the p rocedure was performed in the operating room with general anesthetic. The anterior abdominal wall and anterior pelvic wall was prepped and draped in the usual sterile fas hion. Using fluoroscopic guidance, a 21-gauge needle was advanced into the peritoneal space in the l eft lower quadrant. Contrast was injected to verify position of the needle. An 0.018-inch floppy-tip guidewire was advanced into the peritoneal space under fluoroscopic guidance. A 5-Zambian sheath was advanced over the guidewire. The guidewire was removed and an 0.035-inch Amplatz guidewire was adva nced through the sheath into the peritoneal cavity. Serial dilatation was then performed to 16-Frenc h and a 16-Zambian peel-away sheath was advanced over the guidewire. The 16-Zambian Aris Curl-cath peritoneal dialysis catheter was advanced through the peel-away sheath into the peritoneal space. Co ntrast was injected to verify position once again. The peel-away sheath was removed. Following this, the catheter was tunneled subcutaneously to the left flank. The cuff of the catheter was positioned in the subcutaneous tissues and the anterior abdominal wall musculature at the insertion site. The second cuff was positioned in the subcutaneous tunnel approximately 2 cm from the exit sit e of the catheter. The subcutaneous tissues were closed with interrupted 3-0 Vicryl. The skin wound was then closed using 4-0 Vicryl and a running subcuticular technique. The catheter was secured to t he skin with 2-0 silk. The site was dressed. The patient tolerated the procedure well. 700 ml saline was flushed in and out of the catheter without problem. Fluoroscopy time is 53 seconds and 9 images were obtained. COMPARISON: None. FINDINGS: The final images demonstrate the peritoneal dialysis catheter within the pelvic peritoneal space in the pelvis. IMPRESSION: 1. SATISFACTORY PERCUTANEOUS INSERTION OF PERITONEAL DIALYSIS CATHETER WITH FLUOROSCOPIC GUIDANCE. RPTAT: QQ .Qasim Watkins MD, Date Time Electronically viewed and signed by .Qasim Watkins MD, on 01/05/2017 19:33 .R/
[2017-01-05] MEDS: DIPHENHYDRAMINE 50 MG INJ IV PRN (21:15)
[2017-01-06] MEDS: morphine 2 MG INJ IV PRN (01:43)
[2017-01-06 02:00] VITALS: BP 131/70; RESP 20
[2017-01-06] MEDS: morphine 4 MG/ML VIAL IV PRN ×4 (03:38→22:17)
[2017-01-06] MEDS: DIPHENHYDRAMINE 50 MG INJ IV PRN ×2 (05:48→13:45)
[2017-01-06 06:35] LABS: ABNORMAL IP MESSAGE 1; BASOPHILS % 0.4 % (0.0-2.0); EOSINOPHILS % 0.4 % (0.0-7.0); HEMATOCRIT 24.7 % (37.0-47.0); HEMOGLOBIN 7.7 g/dl (12.0-16.0); LYMPHOCYTES # 0.5 10^3/ul (0.8-2.9); LYMPHOCYTES % 9.8 % (15.0-51.0); MEAN CORPUSCULAR HGB CONC 31.2 g/dl (32.0-37.0); MEAN CORPUSCULAR VOLUME 96.1 fl (82.0-101.0); MEAN PLATELET VOLUME 10.7 fl (7.4-10.4); MONOCYTE # 0.3 10^3/ul (0.3-0.9); MONOCYTES % 5.8 % (0.0-11.0); NEUTROPHIL # 4.4 10^3/ul (1.6-7.5); PLATELET COUNT 260 10^3/UL (140-415); RED BLOOD COUNT 2.57 10^6/ul (4.20-5.40); RED CELL DISTRIBUTION WIDTH 15.5 % (11.5-14.5); WHITE BLOOD COUNT 5.3 10^3/ul (4.8-10.8)
[2017-01-06 06:44] LABS: POSITIVE DIFF @See below
[2017-01-06 07:10] LABS: CALCIUM 8.5 mg/dl (8.4-10.2); CREATININE 11.99 mg/dl (0.44-1.00); POTASSIUM 5.4 mmol/L (3.5-5.1)
[2017-01-06 07:30] VITALS: BP 139/80; RESP 18
[2017-01-06] MEDS: SEVELAMER 800 MG TAB PO SCH ×3 (09:05→18:17)
[2017-01-06] MEDS: ASPIRIN 81 MG TAB PO SCH (09:05)
[2017-01-06] MEDS: FUROSEMIDE 20 MG TAB PO SCH (09:07)
[2017-01-06] MEDS: FOLIC ACID 1 MG TAB PO SCH (09:07)
[2017-01-06] MEDS: TOPIRAMATE SPRINKLE 25 MG CAP PO SCH ×2 (09:08→21:27)
[2017-01-06] MEDS: NIFEdipine (XL) 60 MG TAB PO SCH (09:08)
[2017-01-06] MEDS: MULTIVIT/CA CARB/B CMPLX/FA TAB PO SCH (09:08)
[2017-01-06] MEDS: HEPARIN 25000 UNITS/250 ML 250 ML IV SCH ×2 (12:00→19:47)
--- NOTE | 2017-01-06 12:37 | CONS ---
Date/Time of Note Date/Time of Note DATE: 01/06/17 TIME: 12:35 Assessment/Plan Assessment/Plan Chief Complaint/Hosp Course IMPRESSION: 1. Preoperative evaluation prior to placement of a peritoneal dialysis catheter.-negative trop x 2/no change on serial ecg's/Nl EF by most recent echo during alst admission with no contraindicated valve lesions. Thus ok to proceed to OR for placement of PD catheter at moderate CV risk without further noninvasive evaluation 2. Hypertension, under reasonable control. 3. Left lower extremity deep venous thrombosis. 4. Anemia. 5. Prior failed chest wall catheters. Recc: -Continue coreg/asa/procardia -Now post-op s/p placement of PD catheter -Awaiting removal of femoral catheter Problems: Consultation Date/Type/Reason Admit Date/Time Jan 05, 2017 at 14:32 Initial Consult Date 01/04/2017 Type of Consultation: cardiology Reason for Consultation pre-op/HTN Referring Provider: JULISSA NI MD Exam/Review of Systems Vital Signs Vitals Vital Signs Date Time Temp Pulse Resp B/P Pulse Ox O2 Delivery O2 Flow Rate FiO2 01/06/17 07:30 97.8 79 18 139/80 97 01/05/17 20:35 Room Air Intake and Output 01/05/17 01/05/17 01/06/17 15:00 23:00 07:00 Intake Total 380 ml 540 ml 1208 ml Output Total 3300 ml 202 ml Balance -2920 ml 338 ml 1208 ml Exam Review of Systems: CONSTITUTIONAL: No fevers, chills. PULMONARY: No sob CARDIOVASCULAR: No chest pain/palpitations GASTROINTESTINAL: No nausea/vomiting. GENITOURINARY: No hematuria/dysuria. MUSCULOSKELETAL: No myagias/arthalgias. PSYCHIATRIC: The patient denies depression. NEUROLOGIC: No weakness Constitutional: alert, oriented Psych: no complaints Head: normocephalic ENMT: mucosa pink and moist Neck: jvd (9 cm water), supple Respiratory: diminished breath sounds (at bases/B) Cardiovascular: regular rate and rhythm Gastrointestinal: non-tender, soft Musculoskeletal: muscle tone (normal) Extremities: pitting pedal edema (L>R) Neurological: other (No focal deficits) Results Result Diagram: 01/06/17 0509 01/06/17 0509 Results 24 hrs Laboratory Tests Test 01/06/17 05:09 White Blood Count 5.3 Red Blood Count 2.57 L Hemoglobin 7.7 L Hematocrit 24.7 L Mean Corpuscular Volume 96.1 Mean Corpuscular Hemoglobin 30.0 Mean Corpuscular Hemoglobin Concent 31.2 L Red Cell Distribution Width 15.5 H Platelet Count 260 Mean Platelet Volume 10.7 H Neutrophils % 83.0 H Lymphocytes % 9.8 L Monocytes % 5.8 Eosinophils % 0.4 Basophils % 0.4 Nucleated Red Blood Cells % 0.0 Neutrophils # 4.4 Lymphocytes # 0.5 L Monocytes # 0.3 Eosinophils # 0.0 Basophils # 0.0 Nucleated Red Blood Cells # 0.0 Activated Partial Thromboplast Time 69.8 H Sodium Level 141 Potassium Level 5.4 H Chloride Level 102 Carbon Dioxide Level 21 Anion Gap 23 H Blood Urea Nitrogen 79 H Creatinine 11.99 #H Glucose Level 114 Calcium Level 8.5 Medications Medications Current Medications Ondansetron HCl (Zofran Inj) 4 mg Q6H PRN IV NAUSEA AND/OR VOMITING; Start at 23:00 Acetaminophen (Tylenol Tab) 650 mg Q6H PRN PO PAIN LEVEL 1-3 OR FEVER; Start 01/02/17 at 23:00 Docusate Sodium (Colace) 100 mg Q12H PRN PO CONSTIPATION; Start 01/02/17 at 23 :00 Bisacodyl (Dulcolax) 5 mg DAILY PRN PO CONSTIPATION; Start 01/02/17 at 23:00 Aspirin (Aspirin) 81 mg DAILY PO Last administered on 01/06/17 09:05; Admin Dose 81 MG; Start 01/03/17 at 09:00 Carvedilol (Coreg) 12.5 mg BID PO Last administered on 01/06/17 09:06; Admin Dose 12.5 MG; Start 01/03/17 at 09:00 Clonidine (Catapres) 0.2 mg BID PO Last administered on 01/06/17 09:06; Admin Dose 0.2 MG; Start 01/03/17 at 09:00 Folic Acid (Folic Acid) 1 mg DAILY PO Last administered on 01/06/17 09:07; Admin Dose 1 MG; Start 01/03/17 at 09:00 Furosemide (Lasix) 20 mg DAILY PO Last administered on 01/06/17 09:07; Admin Dose 20 MG; Start 01/03/17 at 09:00 Hydralazine HCl (Apresoline) 50 mg Q12 PRN PO FOR SBP ABOVE 170 Last administered on 01/03/17 04:25; Admin Dose 50 MG; Start 01/02/17 at 23:00 Labetalol HCl (Normodyne) 100 mg BID PO ; Start 01/03/17 at 09:00; Status Future Hold Multivit/Ca Carb/ B Cmplx/FA/Prenat (Sommer-Samantha) 1 tab DAILY PO Last administered on 01/06/17 09:08; Admin Dose 1 TAB; Start 01/03/17 at 09:00 Nifedipine (Procardia Xl) 60 mg DAILY PO Last administered on 01/06/17 09:08; Admin Dose 60 MG; Start 01/03/17 at 09:00 Topiramate (Topamax Sprinkle) 25 mg BID PO Last administered on 01/06/17 09:08 ; Admin Dose 25 MG; Start 01/03/17 at 09:00 Apixaban (Eliquis) 5 mg BID PO Last administered on 01/03/17 21:58; Admin Dose 5 MG; Start 01/03/17 at 21:00; Status Future Hold Diphenhydramine HCl (Benadryl) 25 mg Q8H PRN IV ITCHING Last administered on 05:48; Admin Dose 25 MG; Start 01/05/17 at 11:30 Morphine Sulfate (morphine) 4 mg Q4H PRN IV SEVERE PAIN LEVEL 7-10 Last administered on 01/06/17 09:57; Admin Dose 4 MG; Start 01/06/17 at 03:30 ETHAN MCKINLEY Jan 06, 2017 12:37
--- NOTE | 2017-01-06 14:28 | CONS ---
Date/Time of Note Date/Time of Note DATE: 01/06/17 TIME: 14:27 Assessment/Plan Assessment/Plan Chief Complaint/Hosp Course 1. ESRD. 2. Acute deep venous thrombosis of the left lower extremity 3. Chronic pain. 4. Anemia. 5. Hypertension. 6. Vasculopathy. 7. uremia with pruritus. Problems: Additional Assessment/Plan 1. continue HD 2. Pt is currently on heparin drip Consultation Date/Type/Reason Admit Date/Time Jan 05, 2017 at 14:32 Initial Consult Date Type of Consultation: cardiology Referring Provider: JULISSA NI MD Exam/Review of Systems Vital Signs Vitals Vital Signs Date Time Temp Pulse Resp B/P Pulse Ox O2 Delivery O2 Flow Rate FiO2 01/06/17 07:30 97.8 79 18 139/80 97 01/05/17 20:35 Room Air Intake and Output 01/05/17 01/05/17 01/06/17 15:00 23:00 07:00 Intake Total 380 ml 540 ml 1208 ml Output Total 3300 ml 202 ml Balance -2920 ml 338 ml 1208 ml Results Result Diagram: 01/06/17 0509 01/06/17 0509 Results 24 hrs Laboratory Tests Test 01/06/17 05:09 01/06/17 12:07 White Blood Count 5.3 Red Blood Count 2.57 L Hemoglobin 7.7 L Hematocrit 24.7 L Mean Corpuscular Volume 96.1 Mean Corpuscular Hemoglobin 30.0 Mean Corpuscular Hemoglobin Concent 31.2 L Red Cell Distribution Width 15.5 H Platelet Count 260 Mean Platelet Volume 10.7 H Neutrophils % 83.0 H Lymphocytes % 9.8 L Monocytes % 5.8 Eosinophils % 0.4 Basophils % 0.4 Nucleated Red Blood Cells % 0.0 Neutrophils # 4.4 Lymphocytes # 0.5 L Monocytes # 0.3 Eosinophils # 0.0 Basophils # 0.0 Nucleated Red Blood Cells # 0.0 Activated Partial Thromboplast Time 69.8 H 55.9 H Sodium Level 141 Potassium Level 5.4 H Chloride Level 102 Carbon Dioxide Level 21 Anion Gap 23 H Blood Urea Nitrogen 79 H Creatinine 11.99 #H Glucose Level 114 Calcium Level 8.5 Medications Medications Current Medications Ondansetron HCl (Zofran Inj) 4 mg Q6H PRN IV NAUSEA AND/OR VOMITING; Start at 23:00 Acetaminophen (Tylenol Tab) 650 mg Q6H PRN PO PAIN LEVEL 1-3 OR FEVER; Start 01/02/17 at 23:00 Docusate Sodium (Colace) 100 mg Q12H PRN PO CONSTIPATION; Start 01/02/17 at 23 :00 Bisacodyl (Dulcolax) 5 mg DAILY PRN PO CONSTIPATION; Start 01/02/17 at 23:00 Aspirin (Aspirin) 81 mg DAILY PO Last administered on 01/06/17 09:05; Admin Dose 81 MG; Start 01/03/17 at 09:00 Carvedilol (Coreg) 12.5 mg BID PO Last administered on 01/06/17 09:06; Admin Dose 12.5 MG; Start 01/03/17 at 09:00 Clonidine (Catapres) 0.2 mg BID PO Last administered on 01/06/17 09:06; Admin Dose 0.2 MG; Start 01/03/17 at 09:00 Folic Acid (Folic Acid) 1 mg DAILY PO Last administered on 01/06/17 09:07; Admin Dose 1 MG; Start 01/03/17 at 09:00 Furosemide (Lasix) 20 mg DAILY PO Last administered on 01/06/17 09:07; Admin Dose 20 MG; Start 01/03/17 at 09:00 Hydralazine HCl (Apresoline) 50 mg Q12 PRN PO FOR SBP ABOVE 170 Last administered on 01/03/17 04:25; Admin Dose 50 MG; Start 01/02/17 at 23:00 Labetalol HCl (Normodyne) 100 mg BID PO ; Start 01/03/17 at 09:00; Status Future Hold Multivit/Ca Carb/ B Cmplx/FA/Prenat (Sommer-Samantha) 1 tab DAILY PO Last administered on 01/06/17 09:08; Admin Dose 1 TAB; Start 01/03/17 at 09:00 Nifedipine (Procardia Xl) 60 mg DAILY PO Last administered on 01/06/17 09:08; Admin Dose 60 MG; Start 01/03/17 at 09:00 Topiramate (Topamax Sprinkle) 25 mg BID PO Last administered on 01/06/17 09:08 ; Admin Dose 25 MG; Start 01/03/17 at 09:00 Apixaban (Eliquis) 5 mg BID PO Last administered on 01/03/17 21:58; Admin Dose 5 MG; Start 01/03/17 at 21:00; Status Future Hold Diphenhydramine HCl (Benadryl) 25 mg Q8H PRN IV ITCHING Last administered on 13:45; Admin Dose 25 MG; Start 01/05/17 at 11:30 Morphine Sulfate (morphine) 4 mg Q4H PRN IV SEVERE PAIN LEVEL 7-10 Last administered on 01/06/17 09:57; Admin Dose 4 MG; Start 01/06/17 at 03:30 MANI PRECIADO Jan 06, 2017 14:28
[2017-01-06 14:51] VITALS: BP 133/82; RESP 16
--- NOTE | 2017-01-06 17:28 | PN ---
Date/Time of Note Date/Time of Note DATE: 01/06/17 TIME: 17:27 Assessment/Plan VTE Prophylaxis VTE Prophylaxis Intervention: SCD's Lines/Catheters IV Catheter Type (from Nrsg): Saline Lock Assessment/Plan Assessment/Plan 31 yo F with ESRD on HD, recent admission for MSSA CLABSI/tunnel infection, found to have large LLE DVT at that time readmitted for worsening LLE pain. Imaging with worsening of clot despite anticoagulation. #LLE DVT also superficial thrombophlebitis: management as per vascular surgery. Per his rec, increased Eliquis dose to 5 mg BID FEMORAL CATHETER TO BE REMOVED. Per notes pt requesting general anesthesia for this. Vascular surgery coordinating #ESRD: nephrology on cs for HD-->PD CATHETER PLACED 01.05 #pain intolerance: cont current pain regimen, may need to reach out to her outpatient pain medicine specialist. CM consult to help with PD arrangements Subjective 24 Hr Interval Summary Free Text/Dictation Sitting up in bed chatting with a friend/family member Exam/Review of Systems Vital Signs Vitals Vital Signs Date Time Temp Pulse Resp B/P Pulse Ox O2 Delivery O2 Flow Rate FiO2 01/06/17 14:51 97.5 75 16 133/82 100 01/05/17 20:35 Room Air Intake and Output 01/05/17 01/05/17 01/06/17 15:00 23:00 07:00 Intake Total 380 ml 540 ml 1208 ml Output Total 3300 ml 202 ml Balance -2920 ml 338 ml 1208 ml Exam nad resp nonlabored no abd distension no rashes responds to questions appropriately Results Result Diagram: 01/06/17 0509 01/06/17 0509 Results 24 hrs Laboratory Tests Test 01/06/17 05:09 01/06/17 12:07 White Blood Count 5.3 Red Blood Count 2.57 L Hemoglobin 7.7 L Hematocrit 24.7 L Mean Corpuscular Volume 96.1 Mean Corpuscular Hemoglobin 30.0 Mean Corpuscular Hemoglobin Concent 31.2 L Red Cell Distribution Width 15.5 H Platelet Count 260 Mean Platelet Volume 10.7 H Neutrophils % 83.0 H Lymphocytes % 9.8 L Monocytes % 5.8 Eosinophils % 0.4 Basophils % 0.4 Nucleated Red Blood Cells % 0.0 Neutrophils # 4.4 Lymphocytes # 0.5 L Monocytes # 0.3 Eosinophils # 0.0 Basophils # 0.0 Nucleated Red Blood Cells # 0.0 Activated Partial Thromboplast Time 69.8 H 55.9 H Sodium Level 141 Potassium Level 5.4 H Chloride Level 102 Carbon Dioxide Level 21 Anion Gap 23 H Blood Urea Nitrogen 79 H Creatinine 11.99 #H Glucose Level 114 Calcium Level 8.5 Medications Medications Current Medications Ondansetron HCl (Zofran Inj) 4 mg Q6H PRN IV NAUSEA AND/OR VOMITING; Start at 23:00 Acetaminophen (Tylenol Tab) 650 mg Q6H PRN PO PAIN LEVEL 1-3 OR FEVER; Start 01/02/17 at 23:00 Docusate Sodium (Colace) 100 mg Q12H PRN PO CONSTIPATION; Start 01/02/17 at 23 :00 Bisacodyl (Dulcolax) 5 mg DAILY PRN PO CONSTIPATION; Start 01/02/17 at 23:00 Aspirin (Aspirin) 81 mg DAILY PO Last administered on 01/06/17 09:05; Admin Dose 81 MG; Start 01/03/17 at 09:00 Carvedilol (Coreg) 12.5 mg BID PO Last administered on 01/06/17 09:06; Admin Dose 12.5 MG; Start 01/03/17 at 09:00 Clonidine (Catapres) 0.2 mg BID PO Last administered on 01/06/17 09:06; Admin Dose 0.2 MG; Start 01/03/17 at 09:00 Folic Acid (Folic Acid) 1 mg DAILY PO Last administered on 01/06/17 09:07; Admin Dose 1 MG; Start 01/03/17 at 09:00 Furosemide (Lasix) 20 mg DAILY PO Last administered on 01/06/17 09:07; Admin Dose 20 MG; Start 01/03/17 at 09:00 Hydralazine HCl (Apresoline) 50 mg Q12 PRN PO FOR SBP ABOVE 170 Last administered on 01/03/17 04:25; Admin Dose 50 MG; Start 01/02/17 at 23:00 Labetalol HCl (Normodyne) 100 mg BID PO ; Start 01/03/17 at 09:00; Status Future Hold Multivit/Ca Carb/ B Cmplx/FA/Prenat (Sommer-Samantha) 1 tab DAILY PO Last administered on 01/06/17 09:08; Admin Dose 1 TAB; Start 01/03/17 at 09:00 Nifedipine (Procardia Xl) 60 mg DAILY PO Last administered on 01/06/17 09:08; Admin Dose 60 MG; Start 01/03/17 at 09:00 Topiramate (Topamax Sprinkle) 25 mg BID PO Last administered on 01/06/17 09:08 ; Admin Dose 25 MG; Start 01/03/17 at 09:00 Apixaban (Eliquis) 5 mg BID PO Last administered on 01/03/17 21:58; Admin Dose 5 MG; Start 01/03/17 at 21:00; Status Future Hold Diphenhydramine HCl (Benadryl) 25 mg Q8H PRN IV ITCHING Last administered on 13:45; Admin Dose 25 MG; Start 01/05/17 at 11:30 Morphine Sulfate (morphine) 4 mg Q4H PRN IV SEVERE PAIN LEVEL 7-10 Last administered on 01/06/17 15:54; Admin Dose 4 MG; Start 01/06/17 at 03:30 BHARAT BLACK MD Jan 06, 2017 17:28
--- NOTE | 2017-01-06 18:25 | CONS ---
Date/Time of Note Date/Time of Note DATE: 01/06/17 TIME: 18:23 Assessment/Plan Assessment/Plan Chief Complaint/Hosp Course 1. Acute deep venous thrombosis of the left lower extremity. 2. Hyperkalemia. 3. End-stage renal disease. 4. Anemia. 5. Hypertension. 6. Vasculopathy. 7 uremia w prurites 8 s/ppd cath placement plan pd cath care and gentle pd on monday out pt rd training out pt at [facility] pd [facility] continue hd for now benadryl Problems: Consultation Date/Type/Reason Admit Date/Time Jan 05, 2017 at 14:32 Type of Consultation: renal Referring Provider: JULISSA NI MD 24 HR Interval Summary Constitutional: improved, no complaints Exam/Review of Systems Vital Signs Vitals Vital Signs Date Time Temp Pulse Resp B/P Pulse Ox O2 Delivery O2 Flow Rate FiO2 01/06/17 14:51 97.5 75 16 133/82 100 01/05/17 20:35 Room Air Intake and Output 01/05/17 01/05/17 01/06/17 15:00 23:00 07:00 Intake Total 380 ml 540 ml 1208 ml Output Total 3300 ml 202 ml Balance -2920 ml 338 ml 1208 ml Exam Constitutional: other (s/p pd cath) Respiratory: clear to auscultation Cardiovascular: regular rate and rhythm Gastrointestinal: bowel sounds (+), other (pd cath +), soft Extremities: edema (++) Results Result Diagram: 01/06/17 0509 01/06/17 0509 Results 24 hrs Laboratory Tests Test 01/06/17 05:09 01/06/17 12:07 White Blood Count 5.3 Red Blood Count 2.57 L Hemoglobin 7.7 L Hematocrit 24.7 L Mean Corpuscular Volume 96.1 Mean Corpuscular Hemoglobin 30.0 Mean Corpuscular Hemoglobin Concent 31.2 L Red Cell Distribution Width 15.5 H Platelet Count 260 Mean Platelet Volume 10.7 H Neutrophils % 83.0 H Lymphocytes % 9.8 L Monocytes % 5.8 Eosinophils % 0.4 Basophils % 0.4 Nucleated Red Blood Cells % 0.0 Neutrophils # 4.4 Lymphocytes # 0.5 L Monocytes # 0.3 Eosinophils # 0.0 Basophils # 0.0 Nucleated Red Blood Cells # 0.0 Activated Partial Thromboplast Time 69.8 H 55.9 H Sodium Level 141 Potassium Level 5.4 H Chloride Level 102 Carbon Dioxide Level 21 Anion Gap 23 H Blood Urea Nitrogen 79 H Creatinine 11.99 #H Glucose Level 114 Calcium Level 8.5 Medications Medications Current Medications Ondansetron HCl (Zofran Inj) 4 mg Q6H PRN IV NAUSEA AND/OR VOMITING; Start at 23:00 Acetaminophen (Tylenol Tab) 650 mg Q6H PRN PO PAIN LEVEL 1-3 OR FEVER; Start 01/02/17 at 23:00 Docusate Sodium (Colace) 100 mg Q12H PRN PO CONSTIPATION; Start 01/02/17 at 23 :00 Bisacodyl (Dulcolax) 5 mg DAILY PRN PO CONSTIPATION; Start 01/02/17 at 23:00 Aspirin (Aspirin) 81 mg DAILY PO Last administered on 01/06/17 09:05; Admin Dose 81 MG; Start 01/03/17 at 09:00 Carvedilol (Coreg) 12.5 mg BID PO Last administered on 01/06/17 09:06; Admin Dose 12.5 MG; Start 01/03/17 at 09:00 Clonidine (Catapres) 0.2 mg BID PO Last administered on 01/06/17 09:06; Admin Dose 0.2 MG; Start 01/03/17 at 09:00 Folic Acid (Folic Acid) 1 mg DAILY PO Last administered on 01/06/17 09:07; Admin Dose 1 MG; Start 01/03/17 at 09:00 Furosemide (Lasix) 20 mg DAILY PO Last administered on 01/06/17 09:07; Admin Dose 20 MG; Start 01/03/17 at 09:00 Hydralazine HCl (Apresoline) 50 mg Q12 PRN PO FOR SBP ABOVE 170 Last administered on 01/03/17 04:25; Admin Dose 50 MG; Start 01/02/17 at 23:00 Labetalol HCl (Normodyne) 100 mg BID PO ; Start 01/03/17 at 09:00; Status Future Hold Multivit/Ca Carb/ B Cmplx/FA/Prenat (Sommer-Samantha) 1 tab DAILY PO Last administered on 01/06/17 09:08; Admin Dose 1 TAB; Start 01/03/17 at 09:00 Nifedipine (Procardia Xl) 60 mg DAILY PO Last administered on 01/06/17 09:08; Admin Dose 60 MG; Start 01/03/17 at 09:00 Topiramate (Topamax Sprinkle) 25 mg BID PO Last administered on 01/06/17 09:08 ; Admin Dose 25 MG; Start 01/03/17 at 09:00 Apixaban (Eliquis) 5 mg BID PO Last administered on 01/03/17 21:58; Admin Dose 5 MG; Start 01/03/17 at 21:00; Status Future Hold Diphenhydramine HCl (Benadryl) 25 mg Q8H PRN IV ITCHING Last administered on 13:45; Admin Dose 25 MG; Start 01/05/17 at 11:30 Morphine Sulfate (morphine) 4 mg Q4H PRN IV SEVERE PAIN LEVEL 7-10 Last administered on 01/06/17 15:54; Admin Dose 4 MG; Start 01/06/17 at 03:30 Sodium Polystyrene Sulfonate (Kayexalate) 30 gm ONCE ONCE PO ; Start 01/06/17 at 18:30; Stop 01/06/17 at 18:31; Status MIKE REYNOSO MD Jan 06, 2017 18:25
[2017-01-06] MEDS ORDERED: NA POLYST SULFON 15 GM/60 ML BTL PO ONE (18:30)
[2017-01-06 20:01] VITALS: BP 148/92; RESP 20
--- NOTE | 2017-01-06 23:07 | PN ---
Date/Time of Note Date/Time of Note DATE: 01/06/17 TIME: 23:07 Assessment/Plan Lines/Catheters IV [facility]from [facility]): Saline Lock Assessment/Plan Chief Complaint/Hosp Course -Endstage renal disease and central occlusion and caval thrombosis: It seems the patient had progressed in terms of her left lower extremity deep venous thrombosis. Patient did have deep venous thrombosis findings in the common femoral vein that was identified when we had done her angiogram about 2 weeks ago; therefore, I would not necessarily say that it is an acute finding. However, the patient does have superficial thrombophlebitis of her left greater saphenous vein and she does have calf tenderness with edema of 2+ to 3+ in that segment which seems to be her main discomfort -S/P left groin Perm catheter removal and iliac venoplasty -Start transition to [facility] and patient cleared to be discharhed from vascular standpoint -PT/OT and OOB FWB -Elevate LLE while at rest -Discussed findings, plan and management with the patient, she understands. -Thank you for allowing us to partake in the care of your patient. Please call with any questions. Problems: Exam/Review of Systems Vital Signs Vitals Vital Signs Date Time Temp Pulse Resp B/P Pulse Ox O2 Delivery O2 Flow Rate FiO2 01/10/17 20:00 98.6 78 20 122/60 97 01/09/17 16:39 Room Air Intake and Output 01/09/17 01/09/17 01/10/17 14:59 22:59 06:59 Intake Total 581 ml 714.5 ml 1024.5 ml Output Total 3500 ml 10 ml Balance -2919 ml 704.5 ml 1024.5 ml Exam Free Text/Dictation GENERAL: She is alert and oriented x3. PULMONARY: Clear to auscultation bilaterally. CARDIOVASCULAR: S1, S2 present. ABDOMEN: Soft, nontender, nondistended. Bowel sounds positive. Truncal obesity. PD catheter intact RIGHT LOWER EXTREMITY: Palpable femoral pulse, faint pedal pulse. Motor, sensory intact. Cap refill 2 to 3 seconds. LEFT LOWER EXTREMITY: Palpable femoral pulse. Groin incision with marco intact and dry. Faint pedal pulse. Motor and sensory intact. Edema of the lower leg 2+ and tenderness improved as her thrombophlebitis is resolving. Perm catheter intact and functional Results Result Diagram: 01/09/17 0457 01/09/17 0457 JULISSA NI MD Jan 06, 2017 23:07 JULISSA NI MD Jan 06, 2017 23:07
[2017-01-07] VITALS (12 sets, daily range): BP systolic 135–210; BP diastolic 75–113; PULSE 75–80; RESP 16–20
[2017-01-07] MEDS: DIPHENHYDRAMINE 50 MG INJ IV PRN ×3 (00:59→21:16)
[2017-01-07] MEDS: morphine 4 MG/ML VIAL IV PRN ×5 (04:24→20:49)
[2017-01-07] MEDS: HEPARIN 25000 UNITS/250 ML 250 ML IV SCH (06:39)
[2017-01-07] MEDS: SEVELAMER 800 MG TAB PO SCH ×3 (08:19→18:03)
[2017-01-07] MEDS: MULTIVIT/CA CARB/B CMPLX/FA TAB PO SCH (08:19)
[2017-01-07] MEDS: FOLIC ACID 1 MG TAB PO SCH (08:19)
[2017-01-07] MEDS: NIFEdipine (XL) 60 MG TAB PO SCH (08:20)
[2017-01-07] MEDS: ASPIRIN 81 MG TAB PO SCH (08:20)
[2017-01-07] MEDS: FUROSEMIDE 20 MG TAB PO SCH (08:20)
[2017-01-07] MEDS: TOPIRAMATE SPRINKLE 25 MG CAP PO SCH ×2 (08:26→20:48)
[2017-01-07 08:59] LABS: ALBUMIN 3.7 g/dl (3.3-4.9); ALBUMIN/GLOBULIN RATIO 0.84; CALCIUM 9.1 mg/dl (8.4-10.2); CREATININE 13.56 mg/dl (0.44-1.00); TOTAL PROTEIN 8.1 g/dl (6.1-8.1)
[2017-01-07 09:00] LABS: POTASSIUM 4.5 mmol/L (3.5-5.1)
[2017-01-07] MEDS: DIPHENHYDRAMINE 50 MG INJ IV SCH (13:10)
--- NOTE | 2017-01-07 13:13 | PN ---
Date/Time of Note Date/Time of Note DATE: 01/07/17 TIME: 13:12 Assessment/Plan VTE Prophylaxis VTE Prophylaxis Intervention: SCD's Lines/Catheters IV Catheter Type (from Nrsg): Peripheral IV Assessment/Plan Assessment/Plan 31 yo F with ESRD on HD, recent admission for MSSA CLABSI/tunnel infection, found to have large LLE DVT at that time readmitted for worsening LLE pain. Imaging with worsening of clot despite anticoagulation. #LLE DVT also superficial thrombophlebitis: management as per vascular surgery. Per his rec, increased Eliquis dose to 5 mg BID. currently on heparin drip pending procedure FEMORAL CATHETER TO BE REMOVED. Per notes pt requesting general anesthesia for this. Vascular surgery coordinating #ESRD: nephrology on cs for HD-->PD CATHETER PLACED 01.05 #pain intolerance: cont current pain regimen, may need to reach out to her outpatient pain medicine specialist. CM consult to help with PD arrangements Subjective 24 Hr Interval Summary Free Text/Dictation states she's in pain but appears to be comfortably texting on her phone Exam/Review of Systems Vital Signs Vitals Vital Signs Date Time Temp Pulse Resp B/P Pulse Ox O2 Delivery O2 Flow Rate FiO2 01/07/17 07:31 97.9 82 16 157/94 99 01/05/17 20:35 Room Air Intake and Output 01/06/17 01/06/17 01/07/17 15:00 23:00 07:00 Intake Total 42 ml 540 ml 1550 ml Balance 42 ml 540 ml 1550 ml Exam nad resp nonlabored no abd distress no rashes responds to questions appropriately Results Result Diagram: 01/06/17 0509 01/07/17 0743 Results 24 hrs Laboratory Tests Test 01/06/17 18:13 01/07/17 00:51 01/07/17 07:43 Activated Partial Thromboplast Time 109.6 *H 95.1 *H 97.1 *H Sodium Level 142 Potassium Level 4.5 Chloride Level 100 Carbon Dioxide Level 24 Anion Gap 23 H Blood Urea Nitrogen 86 H Creatinine 13.56 H Glucose Level 93 Calcium Level 9.1 Total Bilirubin 0.0 L Direct Bilirubin 0.00 Indirect Bilirubin 0.0 Aspartate Amino Transf (AST/SGOT) 16 Alanine Aminotransferase (ALT/SGPT) 16 Alkaline Phosphatase 82 Total Protein 8.1 Albumin 3.7 Globulin 4.40 H Albumin/Globulin Ratio 0.84 Medications Medications Current Medications Ondansetron HCl (Zofran Inj) 4 mg Q6H PRN IV NAUSEA AND/OR VOMITING; Start at 23:00 Acetaminophen (Tylenol Tab) 650 mg Q6H PRN PO PAIN LEVEL 1-3 OR FEVER; Start 01/02/17 at 23:00 Docusate Sodium (Colace) 100 mg Q12H PRN PO CONSTIPATION; Start 01/02/17 at 23 :00 Bisacodyl (Dulcolax) 5 mg DAILY PRN PO CONSTIPATION; Start 01/02/17 at 23:00 Aspirin (Aspirin) 81 mg DAILY PO Last administered on 01/07/17 08:20; Admin Dose 81 MG; Start 01/03/17 at 09:00 Carvedilol (Coreg) 12.5 mg BID PO Last administered on 01/06/17 21:27; Admin Dose 12.5 MG; Start 01/03/17 at 09:00 Clonidine (Catapres) 0.2 mg BID PO Last administered on 01/06/17 21:27; Admin Dose 0.2 MG; Start 01/03/17 at 09:00 Folic Acid (Folic Acid) 1 mg DAILY PO Last administered on 01/07/17 08:19; Admin Dose 1 MG; Start 01/03/17 at 09:00 Furosemide (Lasix) 20 mg DAILY PO Last administered on 01/06/17 09:07; Admin Dose 20 MG; Start 01/03/17 at 09:00 Hydralazine HCl (Apresoline) 50 mg Q12 PRN PO FOR SBP ABOVE 170 Last administered on 01/03/17 04:25; Admin Dose 50 MG; Start 01/02/17 at 23:00 Labetalol HCl (Normodyne) 100 mg BID PO ; Start 01/03/17 at 09:00; Status Future Hold Multivit/Ca Carb/ B Cmplx/FA/Prenat (Sommer-Samantha) 1 tab DAILY PO Last administered on 01/07/17 08:19; Admin Dose 1 TAB; Start 01/03/17 at 09:00 Nifedipine (Procardia Xl) 60 mg DAILY PO Last administered on 01/06/17 09:08; Admin Dose 60 MG; Start 01/03/17 at 09:00 Topiramate (Topamax Sprinkle) 25 mg BID PO Last administered on 01/07/17 08:26 ; Admin Dose 25 MG; Start 01/03/17 at 09:00 Apixaban (Eliquis) 5 mg BID PO Last administered on 01/03/17 21:58; Admin Dose 5 MG; Start 01/03/17 at 21:00; Status Future Hold Diphenhydramine HCl (Benadryl) 25 mg Q8H PRN IV ITCHING Last administered on 09:09; Admin Dose 25 MG; Start 01/05/17 at 11:30 Morphine Sulfate (morphine) 4 mg Q4H PRN IV SEVERE PAIN LEVEL 7-10 Last administered on 01/07/17 12:16; Admin Dose 4 MG; Start 01/06/17 at 03:30 BHARAT BLACK MD Jan 07, 2017 13:13
--- NOTE | 2017-01-07 13:58 | CONS ---
Date/Time of Note Date/Time of Note DATE: 01/07/17 TIME: 13:55 Assessment/Plan Assessment/Plan Chief Complaint/Hosp Course IMPRESSION: 1. Preoperative evaluation prior to placement of a peritoneal dialysis catheter.-negative trop x 2/no change on serial ecg's/Nl EF by most recent echo during alst admission with no contraindicated valve lesions. Thus ok to proceed to OR for placement of PD catheter at moderate CV risk without further noninvasive evaluation 2. Hypertension, under reasonable control. 3. Left lower extremity deep venous thrombosis. 4. Anemia. 5. Prior failed chest wall catheters. Recc: -Continue coreg/asa/procardia and follow-up BP after receiving -Now post-op s/p placement of PD catheter -Awaiting removal of femoral catheter -HD for volume removal ongoing today Problems: Consultation Date/Type/Reason Admit Date/Time Jan 05, 2017 at 14:32 Initial Consult Date 01/04/2017 Type of Consultation: cardiology Reason for Consultation Pre-op Referring Provider: JULISSA NI MD Exam/Review of Systems Vital Signs Vitals Vital Signs Date Time Temp Pulse Resp B/P Pulse Ox O2 Delivery O2 Flow Rate FiO2 01/07/17 13:15 75 01/07/17 12:15 14 01/07/17 07:31 97.9 157/94 99 01/05/17 20:35 Room Air Intake and Output 01/06/17 01/06/17 01/07/17 14:59 22:59 06:59 Intake Total 42 ml 540 ml 1550 ml Balance 42 ml 540 ml 1550 ml Exam Review of Systems: CONSTITUTIONAL: No fevers, chills. PULMONARY: No sob CARDIOVASCULAR: No chest pain/palpitations GASTROINTESTINAL: No nausea/vomiting. GENITOURINARY: No hematuria/dysuria. MUSCULOSKELETAL: No myagias/arthalgias. PSYCHIATRIC: The patient denies depression. NEUROLOGIC: No weakness Constitutional: alert, oriented Psych: no complaints Head: normocephalic ENMT: mucosa pink and moist Neck: jvd (9 cm water), supple Respiratory: diminished breath sounds (at bases/B) Cardiovascular: regular rate and rhythm Gastrointestinal: non-tender, soft Musculoskeletal: muscle tone (normal) Extremities: pitting pedal edema (L>R) Neurological: other (No focal deficits) Results Result Diagram: 01/06/17 0509 01/07/17 0743 Results 24 hrs Laboratory Tests Test 01/06/17 18:13 01/07/17 00:51 01/07/17 07:43 Activated Partial Thromboplast Time 109.6 *H 95.1 *H 97.1 *H Sodium Level 142 Potassium Level 4.5 Chloride Level 100 Carbon Dioxide Level 24 Anion Gap 23 H Blood Urea Nitrogen 86 H Creatinine 13.56 H Glucose Level 93 Calcium Level 9.1 Total Bilirubin 0.0 L Direct Bilirubin 0.00 Indirect Bilirubin 0.0 Aspartate Amino Transf (AST/SGOT) 16 Alanine Aminotransferase (ALT/SGPT) 16 Alkaline Phosphatase 82 Total Protein 8.1 Albumin 3.7 Globulin 4.40 H Albumin/Globulin Ratio 0.84 Medications Medications Current Medications Ondansetron HCl (Zofran Inj) 4 mg Q6H PRN IV NAUSEA AND/OR VOMITING; Start at 23:00 Acetaminophen (Tylenol Tab) 650 mg Q6H PRN PO PAIN LEVEL 1-3 OR FEVER; Start 01/02/17 at 23:00 Docusate Sodium (Colace) 100 mg Q12H PRN PO CONSTIPATION; Start 01/02/17 at 23 :00 Bisacodyl (Dulcolax) 5 mg DAILY PRN PO CONSTIPATION; Start 01/02/17 at 23:00 Aspirin (Aspirin) 81 mg DAILY PO Last administered on 01/07/17 08:20; Admin Dose 81 MG; Start 01/03/17 at 09:00 Carvedilol (Coreg) 12.5 mg BID PO Last administered on 01/06/17 21:27; Admin Dose 12.5 MG; Start 01/03/17 at 09:00 Clonidine (Catapres) 0.2 mg BID PO Last administered on 01/06/17 21:27; Admin Dose 0.2 MG; Start 01/03/17 at 09:00 Folic Acid (Folic Acid) 1 mg DAILY PO Last administered on 01/07/17 08:19; Admin Dose 1 MG; Start 01/03/17 at 09:00 Furosemide (Lasix) 20 mg DAILY PO Last administered on 01/06/17 09:07; Admin Dose 20 MG; Start 01/03/17 at 09:00 Hydralazine HCl (Apresoline) 50 mg Q12 PRN PO FOR SBP ABOVE 170 Last administered on 01/03/17 04:25; Admin Dose 50 MG; Start 01/02/17 at 23:00 Labetalol HCl (Normodyne) 100 mg BID PO ; Start 01/03/17 at 09:00; Status Future Hold Multivit/Ca Carb/ B Cmplx/FA/Prenat (Sommer-Samantha) 1 tab DAILY PO Last administered on 01/07/17 08:19; Admin Dose 1 TAB; Start 01/03/17 at 09:00 Nifedipine (Procardia Xl) 60 mg DAILY PO Last administered on 01/06/17 09:08; Admin Dose 60 MG; Start 01/03/17 at 09:00 Topiramate (Topamax Sprinkle) 25 mg BID PO Last administered on 01/07/17 08:26 ; Admin Dose 25 MG; Start 01/03/17 at 09:00 Apixaban (Eliquis) 5 mg BID PO Last administered on 01/03/17 21:58; Admin Dose 5 MG; Start 01/03/17 at 21:00; Status Future Hold Diphenhydramine HCl (Benadryl) 25 mg Q8H PRN IV ITCHING Last administered on 09:09; Admin Dose 25 MG; Start 01/05/17 at 11:30 Morphine Sulfate (morphine) 4 mg Q4H PRN IV SEVERE PAIN LEVEL 7-10 Last administered on 01/07/17 12:16; Admin Dose 4 MG; Start 01/06/17 at 03:30 ETHAN MCKINLEY Jan 07, 2017 13:57
--- NOTE | 2017-01-07 14:05 | CONS ---
Date/Time of Note Date/Time of Note DATE: 01/07/17 TIME: 14:04 Assessment/Plan Assessment/Plan Chief Complaint/Hosp Course 1. ESRD. 2. Acute deep venous thrombosis of the left lower extremity 3. Chronic pain. 4. Anemia. 5. Hypertension. 6. Vasculopathy. 7. uremia with pruritus. Problems: Additional Assessment/Plan 1. continue Hd Consultation Date/Type/Reason Admit Date/Time Jan 05, 2017 at 14:32 Type of Consultation: nephrology Reason for Consultation Dr Knox Referring Provider: JULISSA NI MD Exam/Review of Systems Vital Signs Vitals Vital Signs Date Time Temp Pulse Resp B/P Pulse Ox O2 Delivery O2 Flow Rate FiO2 01/07/17 13:15 75 01/07/17 12:15 14 01/07/17 07:31 97.9 157/94 99 01/05/17 20:35 Room Air Intake and Output 01/06/17 01/06/17 01/07/17 14:59 22:59 06:59 Intake Total 42 ml 540 ml 1550 ml Balance 42 ml 540 ml 1550 ml Exam Constitutional: alert, oriented Respiratory: diminished breath sounds Cardiovascular: regular rate and rhythm Extremities: pitting pedal edema, tenderness (left leg) Results Result Diagram: 01/06/17 0509 01/07/17 0743 Results 24 hrs Laboratory Tests Test 01/06/17 18:13 01/07/17 00:51 01/07/17 07:43 Activated Partial Thromboplast Time 109.6 *H 95.1 *H 97.1 *H Sodium Level 142 Potassium Level 4.5 Chloride Level 100 Carbon Dioxide Level 24 Anion Gap 23 H Blood Urea Nitrogen 86 H Creatinine 13.56 H Glucose Level 93 Calcium Level 9.1 Total Bilirubin 0.0 L Direct Bilirubin 0.00 Indirect Bilirubin 0.0 Aspartate Amino Transf (AST/SGOT) 16 Alanine Aminotransferase (ALT/SGPT) 16 Alkaline Phosphatase 82 Total Protein 8.1 Albumin 3.7 Globulin 4.40 H Albumin/Globulin Ratio 0.84 Medications Medications Current Medications Ondansetron HCl (Zofran Inj) 4 mg Q6H PRN IV NAUSEA AND/OR VOMITING; Start at 23:00 Acetaminophen (Tylenol Tab) 650 mg Q6H PRN PO PAIN LEVEL 1-3 OR FEVER; Start 01/02/17 at 23:00 Docusate Sodium (Colace) 100 mg Q12H PRN PO CONSTIPATION; Start 01/02/17 at 23 :00 Bisacodyl (Dulcolax) 5 mg DAILY PRN PO CONSTIPATION; Start 01/02/17 at 23:00 Aspirin (Aspirin) 81 mg DAILY PO Last administered on 01/07/17 08:20; Admin Dose 81 MG; Start 01/03/17 at 09:00 Carvedilol (Coreg) 12.5 mg BID PO Last administered on 01/06/17 21:27; Admin Dose 12.5 MG; Start 01/03/17 at 09:00 Clonidine (Catapres) 0.2 mg BID PO Last administered on 01/06/17 21:27; Admin Dose 0.2 MG; Start 01/03/17 at 09:00 Folic Acid (Folic Acid) 1 mg DAILY PO Last administered on 01/07/17 08:19; Admin Dose 1 MG; Start 01/03/17 at 09:00 Furosemide (Lasix) 20 mg DAILY PO Last administered on 01/06/17 09:07; Admin Dose 20 MG; Start 01/03/17 at 09:00 Hydralazine HCl (Apresoline) 50 mg Q12 PRN PO FOR SBP ABOVE 170 Last administered on 01/03/17 04:25; Admin Dose 50 MG; Start 01/02/17 at 23:00 Labetalol HCl (Normodyne) 100 mg BID PO ; Start 01/03/17 at 09:00; Status Future Hold Multivit/Ca Carb/ B Cmplx/FA/Prenat (Sommer-Samantha) 1 tab DAILY PO Last administered on 01/07/17 08:19; Admin Dose 1 TAB; Start 01/03/17 at 09:00 Nifedipine (Procardia Xl) 60 mg DAILY PO Last administered on 01/06/17 09:08; Admin Dose 60 MG; Start 01/03/17 at 09:00 Topiramate (Topamax Sprinkle) 25 mg BID PO Last administered on 01/07/17 08:26 ; Admin Dose 25 MG; Start 01/03/17 at 09:00 Apixaban (Eliquis) 5 mg BID PO Last administered on 01/03/17 21:58; Admin Dose 5 MG; Start 01/03/17 at 21:00; Status Future Hold Diphenhydramine HCl (Benadryl) 25 mg Q8H PRN IV ITCHING Last administered on 09:09; Admin Dose 25 MG; Start 01/05/17 at 11:30 Morphine Sulfate (morphine) 4 mg Q4H PRN IV SEVERE PAIN LEVEL 7-10 Last administered on 01/07/17 12:16; Admin Dose 4 MG; Start 01/06/17 at 03:30 MANI PRECIADO Jan 07, 2017 14:05
[2017-01-07] MEDS ORDERED: morphine 2 MG INJ IV ONE (23:29)
[2017-01-07] MEDS ORDERED: DIPHENHYDRAMINE 50 MG INJ IV ONE (23:30)
[2017-01-08 02:00] VITALS: BP 160/98; RESP 16
[2017-01-08] MEDS: HEPARIN 25000 UNITS/250 ML 250 ML IV SCH ×2 (03:01→23:05)
[2017-01-08] MEDS: morphine 4 MG/ML VIAL IV PRN ×5 (03:52→23:05)
[2017-01-08 07:22] VITALS: BP 174/109; RESP 16
[2017-01-08] MEDS: FUROSEMIDE 20 MG TAB PO SCH (07:52)
[2017-01-08] MEDS: TOPIRAMATE SPRINKLE 25 MG CAP PO SCH ×2 (07:52→21:05)
[2017-01-08] MEDS: SEVELAMER 800 MG TAB PO SCH ×3 (07:52→17:22)
[2017-01-08] MEDS: NIFEdipine (XL) 60 MG TAB PO SCH (07:52)
[2017-01-08] MEDS: MULTIVIT/CA CARB/B CMPLX/FA TAB PO SCH (07:52)
[2017-01-08] MEDS: FOLIC ACID 1 MG TAB PO SCH (07:53)
[2017-01-08] MEDS: ASPIRIN 81 MG TAB PO SCH (07:53)
[2017-01-08] MEDS: DIPHENHYDRAMINE 50 MG INJ IV PRN ×3 (07:53→23:01)
--- NOTE | 2017-01-08 13:36 | CONS ---
Date/Time of Note Date/Time of Note DATE: 01/08/17 TIME: 13:35 Assessment/Plan Assessment/Plan Chief Complaint/Hosp Course IMPRESSION: 1. Preoperative evaluation prior to placement of a peritoneal dialysis catheter.-negative trop x 2/no change on serial ecg's/Nl EF by most recent echo during alst admission with no contraindicated valve lesions. Thus ok to proceed to OR for placement of PD catheter at moderate CV risk without further noninvasive evaluation 2. Hypertension-unocntrolled 3. Left lower extremity deep venous thrombosis. 4. Anemia. 5. Prior failed chest wall catheters. Recc: -Continue coreg/asa/procardia and will make increase to procardia to improve BP control -Now post-op s/p placement of PD catheter -Awaiting removal of femoral catheter -HD for volume removal ongoing today Problems: Consultation Date/Type/Reason Admit Date/Time Jan 05, 2017 at 14:32 Initial Consult Date 01/04/2017 Type of Consultation: cardiology Reason for Consultation Pre-op Referring Provider: JULISSA NI MD Exam/Review of Systems Vital Signs Vitals Vital Signs Date Time Temp Pulse Resp B/P Pulse Ox O2 Delivery O2 Flow Rate FiO2 01/08/17 07:22 98.7 76 16 174/109 99 01/05/17 20:35 Room Air Intake and Output 01/07/17 01/07/17 01/08/17 15:00 23:00 07:00 Intake Total 1008.5 ml 868 ml Output Total 3500 ml Balance -2491.5 ml 868 ml Exam Review of Systems: CONSTITUTIONAL: No fevers, chills. PULMONARY: No sob CARDIOVASCULAR: No chest pain/palpitations GASTROINTESTINAL: No nausea/vomiting. GENITOURINARY: No hematuria/dysuria. MUSCULOSKELETAL: No myagias/arthalgias. PSYCHIATRIC: The patient denies depression. NEUROLOGIC: lethargic Constitutional: alert Psych: no complaints Head: normocephalic ENMT: mucosa pink and moist Neck: jvd (9 cm wter), supple Respiratory: intercostal retraction (at bases/B) Cardiovascular: regular rate and rhythm Gastrointestinal: soft Musculoskeletal: muscle tone (normal) Extremities: pitting pedal edema (L>R) Neurological: lethargic Results Result Diagram: 01/06/17 0509 01/07/17 0743 Results 24 hrs Laboratory Tests Test 01/08/17 07:55 Activated Partial Thromboplast Time 98.6 *H Medications Medications Current Medications Ondansetron HCl (Zofran Inj) 4 mg Q6H PRN IV NAUSEA AND/OR VOMITING; Start at 23:00 Acetaminophen (Tylenol Tab) 650 mg Q6H PRN PO PAIN LEVEL 1-3 OR FEVER; Start 01/02/17 at 23:00 Docusate Sodium (Colace) 100 mg Q12H PRN PO CONSTIPATION; Start 01/02/17 at 23 :00 Bisacodyl (Dulcolax) 5 mg DAILY PRN PO CONSTIPATION; Start 01/02/17 at 23:00 Aspirin (Aspirin) 81 mg DAILY PO Last administered on 01/08/17 07:53; Admin Dose 81 MG; Start 01/03/17 at 09:00 Carvedilol (Coreg) 12.5 mg BID PO Last administered on 01/08/17 07:53; Admin Dose 12.5 MG; Start 01/03/17 at 09:00 Clonidine (Catapres) 0.2 mg BID PO Last administered on 01/08/17 07:52; Admin Dose 0.2 MG; Start 01/03/17 at 09:00 Folic Acid (Folic Acid) 1 mg DAILY PO Last administered on 01/08/17 07:53; Admin Dose 1 MG; Start 01/03/17 at 09:00 Furosemide (Lasix) 20 mg DAILY PO Last administered on 01/08/17 07:52; Admin Dose 20 MG; Start 01/03/17 at 09:00 Hydralazine HCl (Apresoline) 50 mg Q12 PRN PO FOR SBP ABOVE 170 Last administered on 01/07/17 16:23; Admin Dose 50 MG; Start 01/02/17 at 23:00 Labetalol HCl (Normodyne) 100 mg BID PO ; Start 01/03/17 at 09:00; Status Future Hold Multivit/Ca Carb/ B Cmplx/FA/Prenat (Sommer-Samantha) 1 tab DAILY PO Last administered on 01/08/17 07:52; Admin Dose 1 TAB; Start 01/03/17 at 09:00 Nifedipine (Procardia Xl) 60 mg DAILY PO Last administered on 01/08/17 07:52; Admin Dose 60 MG; Start 01/03/17 at 09:00 Topiramate (Topamax Sprinkle) 25 mg BID PO Last administered on 01/08/17 07:52 ; Admin Dose 25 MG; Start 01/03/17 at 09:00 Apixaban (Eliquis) 5 mg BID PO Last administered on 01/03/17 21:58; Admin Dose 5 MG; Start 01/03/17 at 21:00; Status Future Hold Diphenhydramine HCl (Benadryl) 25 mg Q8H PRN IV ITCHING Last administered on 07:53; Admin Dose 25 MG; Start 01/05/17 at 11:30 Morphine Sulfate (morphine) 4 mg Q4H PRN IV SEVERE PAIN LEVEL 7-10 Last administered on 01/08/17 13:31; Admin Dose 4 MG; Start 01/06/17 at 03:30 ETHAN MCKINLEY Jan 08, 2017 13:36
--- NOTE | 2017-01-08 13:48 | CONS ---
Date/Time of Note Date/Time of Note DATE: 01/08/17 TIME: 13:47 Assessment/Plan Assessment/Plan Chief Complaint/Hosp Course 1. ESRD. 2. Acute deep venous thrombosis of the left lower extremity on heparin drip 3. Chronic pain. 4. Anemia. 5. Hypertension. 6. Vasculopathy. 7. uremia with pruritus. Problems: Additional Assessment/Plan 1. Continue HD 2. Continue current treatment Consultation Date/Type/Reason Admit Date/Time Jan 05, 2017 at 14:32 Type of Consultation: nephrology Reason for Consultation dr Knox Referring Provider: JULISSA NI MD Exam/Review of Systems Vital Signs Vitals Vital Signs Date Time Temp Pulse Resp B/P Pulse Ox O2 Delivery O2 Flow Rate FiO2 01/08/17 07:22 98.7 76 16 174/109 99 01/05/17 20:35 Room Air Intake and Output 01/07/17 01/07/17 01/08/17 14:59 22:59 06:59 Intake Total 1008.5 ml 868 ml Output Total 3500 ml Balance -2491.5 ml 868 ml Exam Constitutional: alert, oriented Musculoskeletal: swelling (left leg) Results Result Diagram: 01/06/17 0509 01/07/17 0743 Results 24 hrs Laboratory Tests Test 01/08/17 07:55 Activated Partial Thromboplast Time 98.6 *H Medications Medications Current Medications Ondansetron HCl (Zofran Inj) 4 mg Q6H PRN IV NAUSEA AND/OR VOMITING; Start at 23:00 Acetaminophen (Tylenol Tab) 650 mg Q6H PRN PO PAIN LEVEL 1-3 OR FEVER; Start 01/02/17 at 23:00 Docusate Sodium (Colace) 100 mg Q12H PRN PO CONSTIPATION; Start 01/02/17 at 23 :00 Bisacodyl (Dulcolax) 5 mg DAILY PRN PO CONSTIPATION; Start 01/02/17 at 23:00 Aspirin (Aspirin) 81 mg DAILY PO Last administered on 01/08/17 07:53; Admin Dose 81 MG; Start 01/03/17 at 09:00 Carvedilol (Coreg) 12.5 mg BID PO Last administered on 01/08/17 07:53; Admin Dose 12.5 MG; Start 01/03/17 at 09:00 Clonidine (Catapres) 0.2 mg BID PO Last administered on 01/08/17 07:52; Admin Dose 0.2 MG; Start 01/03/17 at 09:00 Folic Acid (Folic Acid) 1 mg DAILY PO Last administered on 01/08/17 07:53; Admin Dose 1 MG; Start 01/03/17 at 09:00 Furosemide (Lasix) 20 mg DAILY PO Last administered on 01/08/17 07:52; Admin Dose 20 MG; Start 01/03/17 at 09:00 Hydralazine HCl (Apresoline) 50 mg Q12 PRN PO FOR SBP ABOVE 170 Last administered on 01/07/17 16:23; Admin Dose 50 MG; Start 01/02/17 at 23:00 Labetalol HCl (Normodyne) 100 mg BID PO ; Start 01/03/17 at 09:00; Status Future Hold Multivit/Ca Carb/ B Cmplx/FA/Prenat (Sommer-Samantha) 1 tab DAILY PO Last administered on 01/08/17 07:52; Admin Dose 1 TAB; Start 01/03/17 at 09:00 Nifedipine (Procardia Xl) 60 mg DAILY PO Last administered on 01/08/17 07:52; Admin Dose 60 MG; Start 01/03/17 at 09:00 Topiramate (Topamax Sprinkle) 25 mg BID PO Last administered on 01/08/17 07:52 ; Admin Dose 25 MG; Start 01/03/17 at 09:00 Apixaban (Eliquis) 5 mg BID PO Last administered on 01/03/17 21:58; Admin Dose 5 MG; Start 01/03/17 at 21:00; Status Future Hold Diphenhydramine HCl (Benadryl) 25 mg Q8H PRN IV ITCHING Last administered on 07:53; Admin Dose 25 MG; Start 01/05/17 at 11:30 Morphine Sulfate (morphine) 4 mg Q4H PRN IV SEVERE PAIN LEVEL 7-10 Last administered on 01/08/17 13:31; Admin Dose 4 MG; Start 01/06/17 at 03:30 Nifedipine (Procardia Xl) 30 mg HS PO ; Start 01/08/17 at 21:00 MANI PRECIADO Jan 08, 2017 13:48
[2017-01-08 14:27] VITALS: BP 140/94; RESP 16
[2017-01-08 16:03] LABS: HAAIG REFLEX REFLEX FILED
--- NOTE | 2017-01-08 16:17 | PN ---
Date/Time of Note Date/Time of Note DATE: 01/08/17 TIME: 16:16 Assessment/Plan VTE Prophylaxis VTE Prophylaxis Intervention: SCD's Lines/Catheters IV Catheter Type (from Nrsg): Saline Lock Assessment/Plan Assessment/Plan Assessment/Plan 31 yo F with ESRD on HD, recent admission for MSSA CLABSI/tunnel infection, found to have large LLE DVT at that time readmitted for worsening LLE pain. Imaging with worsening of clot despite anticoagulation. #LLE DVT also superficial thrombophlebitis: management as per vascular surgery. Per his rec, increased Eliquis dose to 5 mg BID. currently on heparin drip pending procedure FEMORAL CATHETER TO BE REMOVED. Per notes pt requesting general anesthesia for this. Vascular surgery coordinating #ESRD: nephrology on cs for HD-->PD CATHETER PLACED 01.05 #pain intolerance: cont current pain regimen, may need to reach out to her outpatient pain medicine specialist. CM consult to help with PD arrangements, assistance appricated Subjective 24 Hr Interval Summary Free Text/Dictation told the nurse she wants IV benadryl every time she gets IV morphine Exam/Review of Systems Vital Signs Vitals Vital Signs Date Time Temp Pulse Resp B/P Pulse Ox O2 Delivery O2 Flow Rate FiO2 01/08/17 14:27 98.2 84 16 140/94 99 01/05/17 20:35 Room Air Intake and Output 01/07/17 01/07/17 01/08/17 15:00 23:00 07:00 Intake Total 1008.5 ml 868 ml Output Total 3500 ml Balance -2491.5 ml 868 ml Exam leaning over to the L side of her bed, rubbing her eyes resp nonlabored no gross abd distension no rashes no UE edema Results Result Diagram: 01/06/17 0509 01/07/17 0743 Results 24 hrs Laboratory Tests Test 01/08/17 07:55 01/08/17 15:54 Activated Partial Thromboplast Time 98.6 *H Hepatitis B Surface Antigen Pending Hepatitis B Core Total Antibody Pending Hepatitis C Antibody Pending Medications Medications Current Medications Ondansetron HCl (Zofran Inj) 4 mg Q6H PRN IV NAUSEA AND/OR VOMITING; Start at 23:00 Acetaminophen (Tylenol Tab) 650 mg Q6H PRN PO PAIN LEVEL 1-3 OR FEVER; Start 01/02/17 at 23:00 Docusate Sodium (Colace) 100 mg Q12H PRN PO CONSTIPATION; Start 01/02/17 at 23 :00 Bisacodyl (Dulcolax) 5 mg DAILY PRN PO CONSTIPATION; Start 01/02/17 at 23:00 Aspirin (Aspirin) 81 mg DAILY PO Last administered on 01/08/17 07:53; Admin Dose 81 MG; Start 01/03/17 at 09:00 Carvedilol (Coreg) 12.5 mg BID PO Last administered on 01/08/17 07:53; Admin Dose 12.5 MG; Start 01/03/17 at 09:00 Clonidine (Catapres) 0.2 mg BID PO Last administered on 01/08/17 07:52; Admin Dose 0.2 MG; Start 01/03/17 at 09:00 Folic Acid (Folic Acid) 1 mg DAILY PO Last administered on 01/08/17 07:53; Admin Dose 1 MG; Start 01/03/17 at 09:00 Furosemide (Lasix) 20 mg DAILY PO Last administered on 01/08/17 07:52; Admin Dose 20 MG; Start 01/03/17 at 09:00 Hydralazine HCl (Apresoline) 50 mg Q12 PRN PO FOR SBP ABOVE 170 Last administered on 01/07/17 16:23; Admin Dose 50 MG; Start 01/02/17 at 23:00 Labetalol HCl (Normodyne) 100 mg BID PO ; Start 01/03/17 at 09:00; Status Future Hold Multivit/Ca Carb/ B Cmplx/FA/Prenat (Sommer-Samantha) 1 tab DAILY PO Last administered on 01/08/17 07:52; Admin Dose 1 TAB; Start 01/03/17 at 09:00 Nifedipine (Procardia Xl) 60 mg DAILY PO Last administered on 01/08/17 07:52; Admin Dose 60 MG; Start 01/03/17 at 09:00 Topiramate (Topamax Sprinkle) 25 mg BID PO Last administered on 01/08/17 07:52 ; Admin Dose 25 MG; Start 01/03/17 at 09:00 Apixaban (Eliquis) 5 mg BID PO Last administered on 01/03/17 21:58; Admin Dose 5 MG; Start 01/03/17 at 21:00; Status Future Hold Diphenhydramine HCl (Benadryl) 25 mg Q8H PRN IV ITCHING Last administered on 07:53; Admin Dose 25 MG; Start 01/05/17 at 11:30 Morphine Sulfate (morphine) 4 mg Q4H PRN IV SEVERE PAIN LEVEL 7-10 Last administered on 01/08/17 13:31; Admin Dose 4 MG; Start 01/06/17 at 03:30 Nifedipine (Procardia Xl) 30 mg HS PO ; Start 01/08/17 at 21:00 BHARAT BLACK MD Jan 08, 2017 16:17
[2017-01-08 17:29] LABS: HEPATITIS B CORE ANTIBODY NEGATIVE (NEGATIVE)
--- NOTE | 2017-01-08 17:53 | RADRPT ---
PROCEDURE: XR Chest AP portable CLINICAL INDICATION: PD when DC'd TECHNIQUE: An AP portable radiograph of the chest was submitted. COMPARISON: 12/07/2016 FINDINGS: Support Hardware: None Cardiovascular: The heart is upper normal in size and the peripheral pulmonary vasculature appears n ormal. Lung Ridley: The lung ridley appear clear with no nodule, alveolar infiltrate, or interstitial promi nence evident. Pleural Spaces: No pneumothorax or pleural effusion is identified. Osseous Structures: The osseous structures appear intact. Soft Tissues: The soft tissues appear unremarkable. IMPRESSION: Stable and unremarkable portable chest. Physician Elayne Date Time Electronically viewed and signed by Physician Elayne on 01/08/2017 17:53 /
[2017-01-08 19:23] VITALS: BP 156/95; RESP 16
[2017-01-08 21:00] VITALS: BP 172/104; PULSE 81
[2017-01-08] MEDS: NIFEdipine (XL) 30 MG TAB PO SCH (21:04)
[2017-01-09] VITALS (19 sets, daily range): BP systolic 122–176; BP diastolic 63–119; PULSE 64–85; RESP 0–24
[2017-01-09] MEDS: morphine 4 MG/ML VIAL IV PRN ×3 (02:53→17:25)
[2017-01-09 05:32] LABS: BASOPHILS % 0.5 % (0.0-2.0); EOSINOPHILS # 0.9 10^3/ul (0.0-0.5); EOSINOPHILS % 15.5 % (0.0-7.0); HEMATOCRIT 22.5 % (37.0-47.0); HEMOGLOBIN 7.3 g/dl (12.0-16.0); LYMPHOCYTES # 1.6 10^3/ul (0.8-2.9); LYMPHOCYTES % 27.2 % (15.0-51.0); MEAN CORPUSCULAR HEMOGLOBIN 30.2 pg (29.0-33.0); MEAN CORPUSCULAR HGB CONC 32.4 g/dl (32.0-37.0); MEAN PLATELET VOLUME 10.3 fl (7.4-10.4); MONOCYTE # 0.6 10^3/ul (0.3-0.9); MONOCYTES % 9.9 % (0.0-11.0); NEUTROPHIL # 2.7 10^3/ul (1.6-7.5); NEUTROPHILS % 46.6 % (39.0-77.0); PLATELET COUNT 214 10^3/UL (140-415); RED BLOOD COUNT 2.42 10^6/ul (4.20-5.40); RED CELL DISTRIBUTION WIDTH 14.9 % (11.5-14.5); WHITE BLOOD COUNT 5.7 10^3/ul (4.8-10.8)
[2017-01-09 06:06] LABS: ALBUMIN 3.5 g/dl (3.3-4.9); ALBUMIN/GLOBULIN RATIO 0.81; CALCIUM 9.3 mg/dl (8.4-10.2); CREATININE 12.67 mg/dl (0.44-1.00); POTASSIUM 4.5 mmol/L (3.5-5.1); TOTAL PROTEIN 7.8 g/dl (6.1-8.1)
[2017-01-09] MEDS ORDERED: CEFAZOLIN 1 GM INJ ONE (07:00)
[2017-01-09] MEDS: SEVELAMER 800 MG TAB PO SCH ×3 (07:51→17:26)
[2017-01-09] MEDS: FUROSEMIDE 20 MG TAB PO SCH (07:52)
[2017-01-09] MEDS: NIFEdipine (XL) 60 MG TAB PO SCH (07:52)
[2017-01-09] MEDS: DIPHENHYDRAMINE 50 MG INJ IV SCH (07:55)
[2017-01-09] MEDS: ASPIRIN 81 MG TAB PO SCH (07:56)
[2017-01-09] MEDS: FOLIC ACID 1 MG TAB PO SCH (07:56)
[2017-01-09] MEDS: MULTIVIT/CA CARB/B CMPLX/FA TAB PO SCH (07:56)
[2017-01-09] MEDS: TOPIRAMATE SPRINKLE 25 MG CAP PO SCH ×2 (07:56→20:24)
--- NOTE | 2017-01-09 10:28 | CONS ---
Date/Time of Note Date/Time of Note DATE: 01/09/17 TIME: 10:25 Assessment/Plan Assessment/Plan Chief Complaint/Hosp Course IMPRESSION: 1. Preoperative evaluation prior to placement of a peritoneal dialysis catheter.-negative trop x 2/no change on serial ecg's/Nl EF by most recent echo during alst admission with no contraindicated valve lesions. Thus ok to proceed to OR for placement of PD catheter at moderate CV risk without further noninvasive evaluation 2. Hypertension-uncontrolled 3. Left lower extremity deep venous thrombosis. 4. Anemia. 5. Prior failed chest wall catheters. Recc: -Continue coreg/asa/procardia and follow-up BP closely with possible need to further increase anti-hypertenives -Now post-op s/p placement of PD catheter -Awaiting removal of femoral catheter -HD for volume removal Problems: Consultation Date/Type/Reason Admit Date/Time Jan 05, 2017 at 14:32 Initial Consult Date 01/04/2017 Type of Consultation: cardiology Reason for Consultation Pre-op Referring Provider: JULISSA NI MD Exam/Review of Systems Vital Signs Vitals Vital Signs Date Time Temp Pulse Resp B/P Pulse Ox O2 Delivery O2 Flow Rate FiO2 01/09/17 07:21 98.7 71 16 144/86 99 01/05/17 20:35 Room Air Intake and Output 01/08/17 01/08/17 01/09/17 14:59 22:59 06:59 Intake Total 635.5 ml 642.0 ml Balance 635.5 ml 642.0 ml Exam Review of Systems: CONSTITUTIONAL: No fevers, chills. PULMONARY: No sob CARDIOVASCULAR: No chest pain/palpitations GASTROINTESTINAL: No nausea/vomiting. GENITOURINARY: No hematuria/dysuria. MUSCULOSKELETAL: No myagias/arthalgias. PSYCHIATRIC: The patient denies depression. NEUROLOGIC: lethargic Constitutional: alert, oriented Psych: no complaints Head: normocephalic ENMT: mucosa pink and moist Neck: jvd (9cm water), supple Respiratory: clear to auscultation Cardiovascular: regular rate and rhythm Gastrointestinal: non-tender, soft Musculoskeletal: muscle tone (normal) Extremities: edema (none) Neurological: other (No focal deficits) Results Result Diagram: 01/09/17 0457 01/09/17 0457 Results 24 hrs Laboratory Tests Test 01/08/17 15:54 01/09/17 04:57 01/09/17 07:14 Hepatitis B Surface Antigen NEGATIVE Hepatitis B Core Total Antibody NEGATIVE Hepatitis C Antibody NEGATIVE White Blood Count 5.7 Red Blood Count 2.42 L Hemoglobin 7.3 L Hematocrit 22.5 L Mean Corpuscular Volume 93.0 Mean Corpuscular Hemoglobin 30.2 Mean Corpuscular Hemoglobin Concent 32.4 Red Cell Distribution Width 14.9 H Platelet Count 214 Mean Platelet Volume 10.3 Neutrophils % 46.6 Lymphocytes % 27.2 Monocytes % 9.9 Eosinophils % 15.5 H Basophils % 0.5 Nucleated Red Blood Cells % 0.0 Neutrophils # 2.7 Lymphocytes # 1.6 Monocytes # 0.6 Eosinophils # 0.9 H Basophils # 0.0 Nucleated Red Blood Cells # 0.0 Sodium Level 140 Potassium Level 4.5 Chloride Level 98 Carbon Dioxide Level 26 Anion Gap 21 H Blood Urea Nitrogen 86 H Creatinine 12.67 H Glucose Level 103 Calcium Level 9.3 Total Bilirubin 0.0 L Direct Bilirubin 0.00 Indirect Bilirubin 0.0 Aspartate Amino Transf (AST/SGOT) 20 Alanine Aminotransferase (ALT/SGPT) 18 Alkaline Phosphatase 68 Total Protein 7.8 Albumin 3.5 Globulin 4.30 H Albumin/Globulin Ratio 0.81 Activated Partial Thromboplast Time 95.7 *H Medications Medications Current Medications Ondansetron HCl (Zofran Inj) 4 mg Q6H PRN IV NAUSEA AND/OR VOMITING; Start at 23:00 Acetaminophen (Tylenol Tab) 650 mg Q6H PRN PO PAIN LEVEL 1-3 OR FEVER; Start 01/02/17 at 23:00 Docusate Sodium (Colace) 100 mg Q12H PRN PO CONSTIPATION; Start 01/02/17 at 23 :00 Bisacodyl (Dulcolax) 5 mg DAILY PRN PO CONSTIPATION; Start 01/02/17 at 23:00 Aspirin (Aspirin) 81 mg DAILY PO Last administered on 01/09/17 07:56; Admin Dose 81 MG; Start 01/03/17 at 09:00 Carvedilol (Coreg) 12.5 mg BID PO Last administered on 01/08/17 21:05; Admin Dose 12.5 MG; Start 01/03/17 at 09:00 Clonidine (Catapres) 0.2 mg BID PO Last administered on 01/08/17 21:04; Admin Dose 0.2 MG; Start 01/03/17 at 09:00 Folic Acid (Folic Acid) 1 mg DAILY PO Last administered on 01/09/17 07:56; Admin Dose 1 MG; Start 01/03/17 at 09:00 Furosemide (Lasix) 20 mg DAILY PO Last administered on 01/08/17 07:52; Admin Dose 20 MG; Start 01/03/17 at 09:00 Hydralazine HCl (Apresoline) 50 mg Q12 PRN PO FOR SBP ABOVE 170 Last administered on 01/07/17 16:23; Admin Dose 50 MG; Start 01/02/17 at 23:00 Labetalol HCl (Normodyne) 100 mg BID PO ; Start 01/03/17 at 09:00; Status Future Hold Multivit/Ca Carb/ B Cmplx/FA/Prenat (Sommer-Samantha) 1 tab DAILY PO Last administered on 01/09/17 07:56; Admin Dose 1 TAB; Start 01/03/17 at 09:00 Nifedipine (Procardia Xl) 60 mg DAILY PO Last administered on 01/08/17 07:52; Admin Dose 60 MG; Start 01/03/17 at 09:00 Topiramate (Topamax Sprinkle) 25 mg BID PO Last administered on 01/09/17 07:56 ; Admin Dose 25 MG; Start 01/03/17 at 09:00 Apixaban (Eliquis) 5 mg BID PO Last administered on 01/03/17 21:58; Admin Dose 5 MG; Start 01/03/17 at 21:00; Status Future Hold Morphine Sulfate (morphine) 4 mg Q4H PRN IV SEVERE PAIN LEVEL 7-10 Last administered on 01/09/17 07:56; Admin Dose 4 MG; Start 01/06/17 at 03:30 Nifedipine (Procardia Xl) 30 mg HS PO Last administered on 01/08/17 21:04; Admin Dose 30 MG; Start 01/08/17 at 21:00 Diphenhydramine HCl (Benadryl) 25 mg Q6 PRN IV ITCHING Last administered on 23:01; Admin Dose 25 MG; Start 01/08/17 at 18:00 ETHAN MCKINLEY 4, 2017 10:28
--- NOTE | 2017-01-09 12:03 | PN ---
Date/Time of Note Date/Time of Note DATE: 01/09/17 TIME: 11:58 Assessment/Plan VTE Prophylaxis VTE Prophylaxis Intervention: heparin Lines/Catheters IV Catheter Type (from Nrsg): Saline Lock Assessment/Plan Chief Complaint/Hosp Course S: No acute events overnight, awaiting vascular procedure for later today. O: VS (see below) PE: Lying in bed, no acute distress Pupils equal round reactive light extra ocular muscles are intact Supple resp nonlabored S1, S2 heard no gross abd distension no UE edema Assessment/Plan: 31 yo F with ESRD on HD, recent admission for MSSA CLABSI/ tunnel infection, found to have large LLE DVT at that time readmitted for worsening LLE pain. Imaging with worsening of clot despite anticoagulation. 1. LLE DVT also superficial thrombophlebitis: currently on heparin drip pending procedure -management as per vascular surgery. Likely will resume Eliquis dose 5 mg BID after vascular procedure performed -Awaiting FEMORAL CATHETER TO BE REMOVED. Per notes pt requesting general anesthesia for this. Vascular surgery coordinating. 2. ESRD: nephrology on cs for HD-->PD CATHETER PLACED 01.05 -Continue dialysis per renal recommendations 3. pain intolerance: cont current pain regimen, may need to reach out to her outpatient pain medicine specialist. CM consult to help with PD arrangements, assistance appreciated Problems: Exam/Review of Systems Vital Signs Vitals Vital Signs Date Time Temp Pulse Resp B/P Pulse Ox O2 Delivery O2 Flow Rate FiO2 01/09/17 07:21 98.7 71 16 144/86 99 01/05/17 20:35 Room Air Intake and Output 01/08/17 01/08/17 01/09/17 14:59 22:59 06:59 Intake Total 635.5 ml 642.0 ml Balance 635.5 ml 642.0 ml Results Result Diagram: 01/09/17 0457 01/09/17 0457 Results 24 hrs Laboratory Tests Test 01/08/17 15:54 01/09/17 04:57 01/09/17 07:14 Hepatitis B Surface Antigen NEGATIVE Hepatitis B Core Total Antibody NEGATIVE Hepatitis C Antibody NEGATIVE White Blood Count 5.7 Red Blood Count 2.42 L Hemoglobin 7.3 L Hematocrit 22.5 L Mean Corpuscular Volume 93.0 Mean Corpuscular Hemoglobin 30.2 Mean Corpuscular Hemoglobin Concent 32.4 Red Cell Distribution Width 14.9 H Platelet Count 214 Mean Platelet Volume 10.3 Neutrophils % 46.6 Lymphocytes % 27.2 Monocytes % 9.9 Eosinophils % 15.5 H Basophils % 0.5 Nucleated Red Blood Cells % 0.0 Neutrophils # 2.7 Lymphocytes # 1.6 Monocytes # 0.6 Eosinophils # 0.9 H Basophils # 0.0 Nucleated Red Blood Cells # 0.0 Sodium Level 140 Potassium Level 4.5 Chloride Level 98 Carbon Dioxide Level 26 Anion Gap 21 H Blood Urea Nitrogen 86 H Creatinine 12.67 H Glucose Level 103 Calcium Level 9.3 Total Bilirubin 0.0 L Direct Bilirubin 0.00 Indirect Bilirubin 0.0 Aspartate Amino Transf (AST/SGOT) 20 Alanine Aminotransferase (ALT/SGPT) 18 Alkaline Phosphatase 68 Total Protein 7.8 Albumin 3.5 Globulin 4.30 H Albumin/Globulin Ratio 0.81 Activated Partial Thromboplast Time 95.7 *H Medications Medications Current Medications Ondansetron HCl (Zofran Inj) 4 mg Q6H PRN IV NAUSEA AND/OR VOMITING; Start at 23:00 Acetaminophen (Tylenol Tab) 650 mg Q6H PRN PO PAIN LEVEL 1-3 OR FEVER; Start 01/02/17 at 23:00 Docusate Sodium (Colace) 100 mg Q12H PRN PO CONSTIPATION; Start 01/02/17 at 23 :00 Bisacodyl (Dulcolax) 5 mg DAILY PRN PO CONSTIPATION; Start 01/02/17 at 23:00 Aspirin (Aspirin) 81 mg DAILY PO Last administered on 01/09/17 07:56; Admin Dose 81 MG; Start 01/03/17 at 09:00 Carvedilol (Coreg) 12.5 mg BID PO Last administered on 01/08/17 21:05; Admin Dose 12.5 MG; Start 01/03/17 at 09:00 Clonidine (Catapres) 0.2 mg BID PO Last administered on 01/08/17 21:04; Admin Dose 0.2 MG; Start 01/03/17 at 09:00 Folic Acid (Folic Acid) 1 mg DAILY PO Last administered on 01/09/17 07:56; Admin Dose 1 MG; Start 01/03/17 at 09:00 Furosemide (Lasix) 20 mg DAILY PO Last administered on 01/08/17 07:52; Admin Dose 20 MG; Start 01/03/17 at 09:00 Hydralazine HCl (Apresoline) 50 mg Q12 PRN PO FOR SBP ABOVE 170 Last administered on 01/07/17 16:23; Admin Dose 50 MG; Start 01/02/17 at 23:00 Labetalol HCl (Normodyne) 100 mg BID PO ; Start 01/03/17 at 09:00; Status Future Hold Multivit/Ca Carb/ B Cmplx/FA/Prenat (Sommer-Samantha) 1 tab DAILY PO Last administered on 01/09/17 07:56; Admin Dose 1 TAB; Start 01/03/17 at 09:00 Nifedipine (Procardia Xl) 60 mg DAILY PO Last administered on 01/08/17 07:52; Admin Dose 60 MG; Start 01/03/17 at 09:00 Topiramate (Topamax Sprinkle) 25 mg BID PO Last administered on 01/09/17 07:56 ; Admin Dose 25 MG; Start 01/03/17 at 09:00 Apixaban (Eliquis) 5 mg BID PO Last administered on 01/03/17 21:58; Admin Dose 5 MG; Start 01/03/17 at 21:00; Status Future Hold Morphine Sulfate (morphine) 4 mg Q4H PRN IV SEVERE PAIN LEVEL 7-10 Last administered on 01/09/17 07:56; Admin Dose 4 MG; Start 01/06/17 at 03:30 Nifedipine (Procardia Xl) 30 mg HS PO Last administered on 01/08/17 21:04; Admin Dose 30 MG; Start 01/08/17 at 21:00 Diphenhydramine HCl (Benadryl) 25 mg Q6 PRN IV ITCHING Last administered on 23:01; Admin Dose 25 MG; Start 01/08/17 at 18:00 KATLIN MENDOZA Jan 09, 2017 12:03
[2017-01-09] MEDS ORDERED: HEPARIN 1000 UNITS/ML 10 ML INJ ONE ×2 (14:50→15:50)
[2017-01-09] MEDS ORDERED: FENTAnyl 50 MCG/ML VIAL ONE (14:57)
[2017-01-09] MEDS ORDERED: PROPOFOL 20 ML ONE (14:57)
[2017-01-09] MEDS ORDERED: MIDAZOLAM 1 MG/ML 2 ML INJ ONE (14:57)
[2017-01-09] MEDS ORDERED: LIDOCAINE 2% (SDV) 5 ML INJ ONE (14:57)
[2017-01-09] MEDS ORDERED: IOHEXOL 300MG/ML 30 ML BTL ONE ×2 (15:14→15:39)
--- NOTE | 2017-01-09 15:30 | HPN ---
Date/Time of Note Date/Time of Note DATE: 01/09/17 TIME: 15:29 Interval H&P Admission Note Pt. seen H&P reviewed: No system changes JULISSA NI MD Jan 09, 2017 15:30
[2017-01-09] MEDS ORDERED: IOHEXOL 300MG/ML 30 ML BTL IV ONE (15:49)
[2017-01-09] MEDS ORDERED: HEPARIN 10,000 UNITS/ML 1 ML INJ IRR ONE (15:51)
[2017-01-09] MEDS ORDERED: SODIUM CHLORIDE 0.9% 1L BAG IV ONE (15:52)
[2017-01-09] MEDS ORDERED: DEXAMETHASONE 4 MG/ML 1 ML INJ ONE (15:55)
[2017-01-09] MEDS ORDERED: ONDANSETRON 4 MG INJ ONE (15:55)
--- NOTE | 2017-01-09 16:26 | SIPON ---
Date/Time of Note Date/Time of Note DATE: 01/09/17 TIME: 16:24 Operative Report Preoperative Diagnosis ESRD Postoperative Diagnosis ESRD,CENTRAL STENOSIS Operation/Procedure Performed CENTRAL VENOGRAM, CAVAL VENOGRAM, LEFT ILIAC VEIN VENOPLASTY Surgeon see signature line communications assistant NONE Anesthesia: MAC Estimated blood loss: minimal Transfusion Required none Specimen NONE Grafts/Implants none Complications none JULISSA NI MD Jan 09, 2017 16:26
[2017-01-09] MEDS ORDERED: hydrALAzine 20 MG INJ IV PRN (16:30)
[2017-01-09] MEDS ORDERED: LABETALOL HCL 20MG INJ IV PRN (16:30)
[2017-01-09] MEDS ORDERED: OXYCODONE/ACETAMINOPHEN (5/325) TAB PO PRN ×2 (16:30)
[2017-01-09] MEDS ORDERED: ONDANSETRON 4 MG INJ IV PRN (16:30)
[2017-01-09] MEDS ORDERED: morphine (1 MG/ML) 10ML SYRINGE IV PRN ×3 (16:30)
--- NOTE | 2017-01-09 16:47 | SIPON ---
Date/Time of Note Date/Time of Note DATE: 01/09/17 TIME: 16:45 Operative Report Preoperative Diagnosis ESRD, CENTRAL STENOSIS, LEFT ILIAC STENOSIS Postoperative Diagnosis SAME Operation/Procedure Performed CENTRAL VENOGRAM, PERM CATHETER REMOVAL, LEFT ILIAC VEIN VENOPLASTY WITH [id number] BALLOON Surgeon see signature line dermatology physician assistant NONE Anesthesia: MAC Estimated blood loss: minimal Transfusion Required none Specimen NONE Grafts/Implants none Complications none JULISSA NI MD Jan 09, 2017 16:47
--- NOTE | 2017-01-09 17:13 | CONS ---
Date/Time of Note Date/Time of Note DATE: 01/09/17 TIME: 17:12 Assessment/Plan Assessment/Plan Chief Complaint/Hosp Course 1. Acute deep venous thrombosis of the left lower extremity. 2. EDEMA LEGS 3. End-stage renal disease. 4. Anemia. 5. Hypertension. 6. Vasculopathy. 7 uremia w prurites 8 s/ppd cath placement plan pd cath care and gentle pd on monday out pt rd training out pt at [facility] continue hd for now benadryl PRN PD FLUSH PER SURGERY Problems: Consultation Date/Type/Reason Admit Date/Time Jan 05, 2017 at 14:32 Type of Consultation: RENAL Referring Provider: JULISSA NI MD 24 HR Interval Summary Constitutional: other (LEG PAIN+) Exam/Review of Systems Vital Signs Vitals Vital Signs Date Time Temp Pulse Resp B/P Pulse Ox O2 Delivery O2 Flow Rate FiO2 01/09/17 17:01 97.6 81 18 164/104 100 01/09/17 16:39 Room Air Intake and Output 01/08/17 01/08/17 01/09/17 15:00 23:00 07:00 Intake Total 635.5 ml 642.0 ml Balance 635.5 ml 642.0 ml Exam Neck: supple Respiratory: diminished breath sounds Cardiovascular: regular rate and rhythm Gastrointestinal: soft Musculoskeletal: joint tenderness, range of motion (PAIN+) Extremities: edema (++) Results Result Diagram: 01/09/17 0457 01/09/17 0457 Results 24 hrs Laboratory Tests Test 01/09/17 04:57 01/09/17 07:14 White Blood Count 5.7 Red Blood Count 2.42 L Hemoglobin 7.3 L Hematocrit 22.5 L Mean Corpuscular Volume 93.0 Mean Corpuscular Hemoglobin 30.2 Mean Corpuscular Hemoglobin Concent 32.4 Red Cell Distribution Width 14.9 H Platelet Count 214 Mean Platelet Volume 10.3 Neutrophils % 46.6 Lymphocytes % 27.2 Monocytes % 9.9 Eosinophils % 15.5 H Basophils % 0.5 Nucleated Red Blood Cells % 0.0 Neutrophils # 2.7 Lymphocytes # 1.6 Monocytes # 0.6 Eosinophils # 0.9 H Basophils # 0.0 Nucleated Red Blood Cells # 0.0 Sodium Level 140 Potassium Level 4.5 Chloride Level 98 Carbon Dioxide Level 26 Anion Gap 21 H Blood Urea Nitrogen 86 H Creatinine 12.67 H Glucose Level 103 Calcium Level 9.3 Total Bilirubin 0.0 L Direct Bilirubin 0.00 Indirect Bilirubin 0.0 Aspartate Amino Transf (AST/SGOT) 20 Alanine Aminotransferase (ALT/SGPT) 18 Alkaline Phosphatase 68 Total Protein 7.8 Albumin 3.5 Globulin 4.30 H Albumin/Globulin Ratio 0.81 Activated Partial Thromboplast Time 95.7 *H Medications Medications Current Medications Ondansetron HCl (Zofran Inj) 4 mg Q6H PRN IV NAUSEA AND/OR VOMITING; Start at 23:00 Acetaminophen (Tylenol Tab) 650 mg Q6H PRN PO PAIN LEVEL 1-3 OR FEVER; Start 01/02/17 at 23:00 Docusate Sodium (Colace) 100 mg Q12H PRN PO CONSTIPATION; Start 01/02/17 at 23 :00 Bisacodyl (Dulcolax) 5 mg DAILY PRN PO CONSTIPATION; Start 01/02/17 at 23:00 Aspirin (Aspirin) 81 mg DAILY PO Last administered on 01/09/17 07:56; Admin Dose 81 MG; Start 01/03/17 at 09:00 Carvedilol (Coreg) 12.5 mg BID PO Last administered on 01/08/17 21:05; Admin Dose 12.5 MG; Start 01/03/17 at 09:00 Clonidine (Catapres) 0.2 mg BID PO Last administered on 01/08/17 21:04; Admin Dose 0.2 MG; Start 01/03/17 at 09:00 Folic Acid (Folic Acid) 1 mg DAILY PO Last administered on 01/09/17 07:56; Admin Dose 1 MG; Start 01/03/17 at 09:00 Furosemide (Lasix) 20 mg DAILY PO Last administered on 01/08/17 07:52; Admin Dose 20 MG; Start 01/03/17 at 09:00 Hydralazine HCl (Apresoline) 50 mg Q12 PRN PO FOR SBP ABOVE 170 Last administered on 01/07/17 16:23; Admin Dose 50 MG; Start 01/02/17 at 23:00 Labetalol HCl (Normodyne) 100 mg BID PO ; Start 01/03/17 at 09:00; Status Future Hold Multivit/Ca Carb/ B Cmplx/FA/Prenat (Sommer-Samantha) 1 tab DAILY PO Last administered on 01/09/17 07:56; Admin Dose 1 TAB; Start 01/03/17 at 09:00 Nifedipine (Procardia Xl) 60 mg DAILY PO Last administered on 01/08/17 07:52; Admin Dose 60 MG; Start 01/03/17 at 09:00 Topiramate (Topamax Sprinkle) 25 mg BID PO Last administered on 01/09/17 07:56 ; Admin Dose 25 MG; Start 01/03/17 at 09:00 Apixaban (Eliquis) 5 mg BID PO Last administered on 01/03/17 21:58; Admin Dose 5 MG; Start 01/03/17 at 21:00; Status Future Hold Morphine Sulfate (morphine) 4 mg Q4H PRN IV SEVERE PAIN LEVEL 7-10 Last administered on 01/09/17 07:56; Admin Dose 4 MG; Start 01/06/17 at 03:30 Nifedipine (Procardia Xl) 30 mg HS PO Last administered on 01/08/17 21:04; Admin Dose 30 MG; Start 01/08/17 at 21:00 Diphenhydramine HCl (Benadryl) 25 mg Q6 PRN IV ITCHING Last administered on 23:01; Admin Dose 25 MG; Start 01/08/17 at 18:00 MIKE VEGA MD Jan 09, 2017 17:13
[2017-01-09] MEDS: DIPHENHYDRAMINE 50 MG INJ IV PRN (17:25)
--- NOTE | 2017-01-09 18:10 | OPR ---
DATE OF OPERATION: 01/09/2017 PREOPERATIVE DIAGNOSES: End-stage renal disease, left external iliac stenosis, left common iliac st enosis/central stenosis. POSTOPERATIVE DIAGNOSES: End-stage renal disease, left external iliac stenosis, left common iliac s tenosis/central stenosis. ANESTHESIA: LMA. ESTIMATED BLOOD LOSS: Minimal. COMPLICATIONS: None. HEPARIN: 5000 units intravenously. CONTRAST: As recorded. ACCESS: Left common femoral vein. CLOSURE: Manual compression and 3-0 nylon suture. INDICATIONS: This is a 31-year-old female with long-standing history of end-stage renal disease and iliocaval stenosis with central stenosis in which she had undergone multiple chest wall catheter pl acements and fistula creations in the past. The patient has had multiple left groin catheters and a s of recent was admitted about a month ago with bacteremia with infection of the left groin catheter . Subsequently, this catheter was removed and her bacteremia was treated and had a new catheter neel sergio. During the time of evaluation, it was identified the patient having significant amount of left iliac vein stenosis and thrombus that seemed to be older upon intravascular ultrasound and along he r external iliac vein, common iliac vein and the distal aspect of the inferior vena cava. Further, there was clot also identified in the left common femoral vein upon IVUS but had a nature of subacut e to chronic. During her intervention with the new PermCath placement, the patient did undergo veno plasty of the iliac veins in order to create an adequate channel for her lower extremity venous outf low; however, the patient presented with recurrent left lower extremity pain and swelling. Upon dandy luation, it seems that the patient's left groin catheter may not be an adequate option for the patie nt as she has continued left lower extremity swelling and suggestion of possible acute on chronic DV T. After a long discussion with the patient, the patient had agreed to peritoneal dialysis. The kate lara has since undergone peritoneal dialysis catheter placement and is scheduled today for removal of her left groin PermCath catheter. We have discussed with the patient regarding alternatives, ris k and benefits of removing a PermCath catheter and we also discussed that upon our removal of the Pe rmCath, will plan to intervene and evaluate her iliac venous system as well. Therefore, the patient was discussed in regards to risks, benefits and alternatives, risks including, but not limited to, bleeding, infection, thrombosis, embolization, myocardial infarction, , stroke, device malfunct ion, infection, nephrotoxicity, and the patient has agreed to proceed. PROCEDURES: 1. Left iliocaval venogram. 2. Left external iliac vein venoplasty using 12 x 40 mm balloon. 3. Left common iliac vein venoplasty using 12 x 40 mm balloon. 4. Proximal common femoral vein using a 12 x 40 mm balloon. 5. Removal of left groin permanent hemodialysis catheter. FINDINGS: Severe stenosis of the left common iliac vein and external iliac vein with chronic thromb us throughout its course. DESCRIPTION OF PROCEDURE: The patient was brought into the operating room and placed in supine posi tion on the table. Bony prominences were appropriately padded. Anesthesia administered sedation wi thout any complications. The patient's bilateral groins were then shaved and prepped in the usual s tandard sterile fashion. Timeout and appropriate sites were marked and confirmed. Antibiotics were given prior to incision. At this point, using a [employer] wire, we went ahead and placed a wire through our dialysis catheter v enous port. Upon placement of our wire in the suprarenal IVC, we went ahead and removed the PermCat h to its most proximal aspect in the common femoral vein and performed a venogram of the left iliac veins and inferior vena cava. Upon our venogram, it was identified the patient still having severe stenosis within the iliac system; however, had patent IVC and suprarenal IVC. At this point, it was decided to perform a venoplasty prior to removing the catheter as we had access and also because th e patient has had limited access in her central veins in the past and has had multiple PermCath cath eter placements. At this point, using a 12 x 40 mm balloon, we went ahead and removed the PermCath catheter and over a wire, we passed a balloon into the common femoral vein and external iliac vein. Venoplasty was performed. There was a significant waist that was identified and eventually we were able to adequately dilate the balloon through its course of the proximal aspect of the common femor al vein, external iliac vein and common iliac veins. Upon completion angiogram, it was identified t he patient still had some moderate stenosis with chronic clot within her venous system. At this poi nt, no further intervention could be done as these findings were chronic and the patient is already on heparin drip and there would be no further benefit that I would be able to offer this patient as this is chronic DVT. At this point, all catheters, wires and sheaths were removed. The puncture si te was closed with a 3-0 nylon suture. Manual compression was held, and a sterile dressing was appl ied. The patient tolerated the procedure well and was taken to the post-anesthesia care unit in sta ble condition. Dictated By: JULISSA ZUÑIGA/BRADLEY Conf#: [id number] DID#: [id number] CC: SWATI GAFFNEY MD;*EndCC*
--- NOTE | 2017-01-09 20:16 | RADRPT ---
PROCEDURE: Intraoperative fluoroscopy guidance CLINICAL INDICATION: Left femoral venography, angioplasty and removal of dialysis catheter. TECHNIQUE: Fluoroscopic guidance was utilized for left femoral venography, angioplasty and removal of dialysis catheter. COMPARISON: None available FINDINGS: Fluoroscopic guidance was utilized for a left femoral venography, angioplasty and removal of dialysi s catheter. 4-minute 35 seconds of fluoroscopy time was utilized for the procedure. Nonocclusive th rombus is seen in the left iliac and visualized femoral veins with improved flow at the end of the p rocedure. Left femoral approach dialysis catheter has been removed. IMPRESSION: 1. X-ray fluoroscopic guidance utilized for left femoral venography, angioplasty and removal of kishore lysis catheter. RPTAT: HHO .Felice Olsen MD, Date Time Electronically viewed and signed by .Felice Olsen MD, on 01/09/2017 20:16 .O/
[2017-01-09] MEDS: NIFEdipine (XL) 30 MG TAB PO SCH (20:26)
[2017-01-09] MEDS: HEPARIN 25000 UNITS/250 ML 250 ML IV SCH (22:49)
[2017-01-10] MEDS: DIPHENHYDRAMINE 50 MG INJ IV PRN ×3 (00:11→19:01)
[2017-01-10] MEDS: morphine 4 MG/ML VIAL IV PRN ×6 (00:12→23:12)
[2017-01-10 02:10] VITALS: BP 168/100; RESP 16
[2017-01-10 03:26] VITALS: BP 149/86
[2017-01-10 08:00] VITALS: BP 138/79; RESP 18
[2017-01-10] MEDS: MULTIVIT/CA CARB/B CMPLX/FA TAB PO SCH (08:55)
[2017-01-10] MEDS: FOLIC ACID 1 MG TAB PO SCH (08:55)
[2017-01-10] MEDS: SEVELAMER 800 MG TAB PO SCH ×3 (08:55→18:30)
[2017-01-10] MEDS: ASPIRIN 81 MG TAB PO SCH (08:55)
[2017-01-10] MEDS: TOPIRAMATE SPRINKLE 25 MG CAP PO SCH ×2 (08:55→21:18)
[2017-01-10] MEDS: NIFEdipine (XL) 60 MG TAB PO SCH (08:56)
[2017-01-10] MEDS: FUROSEMIDE 20 MG TAB PO SCH (08:56)
[2017-01-10 09:05] VITALS: BP 164/98; PULSE 81
--- NOTE | 2017-01-10 10:04 | PN ---
Date/Time of Note Date/Time of Note DATE: 01/10/17 TIME: 10:03 Assessment/Plan VTE Prophylaxis VTE Prophylaxis Intervention: heparin Lines/Catheters IV Catheter Type (from Nrsg): Saline Lock Assessment/Plan Chief Complaint/Hosp Course S: Patient had venoplasty and groin catheter removal yesterday. Had dialysis yesterday as well. On heparin drip now. No acute events overnight. O: VS (see below) PE: Lying in bed, no acute distress Pupils equal round reactive light extra ocular muscles are intact Supple resp nonlabored S1, S2 heard no gross abd distension no UE edema Assessment/Plan: 31 yo F with ESRD on HD, recent admission for MSSA CLABSI/ tunnel infection, found to have large LLE DVT at that time readmitted for worsening LLE pain. Imaging with worsening of clot despite anticoagulation. 1. LLE DVT also superficial thrombophlebitis: currently on heparin drip -management as per vascular surgery. Likely will resume Eliquis dose 5 mg BID after vascular procedure performed -will discuss with vascular surgery team 2. ESRD: nephrology on cs for HD-->PD CATHETER PLACED 01.05 -Continue dialysis per renal recommendations 3. pain intolerance: cont current pain regimen, may need to reach out to her outpatient pain medicine specialist. Problems: Exam/Review of Systems Vital Signs Vitals Vital Signs Date Time Temp Pulse Resp B/P Pulse Ox O2 Delivery O2 Flow Rate FiO2 01/10/17 09:05 81 164/98 01/10/17 02:10 97.6 16 99 01/09/17 16:39 Room Air Intake and Output 01/09/17 01/09/17 01/10/17 14:59 22:59 06:59 Intake Total 581 ml 714.5 ml 1024.5 ml Output Total 3500 ml 10 ml Balance -2919 ml 704.5 ml 1024.5 ml Results Result Diagram: 01/09/17 0457 01/09/17 0457 Results 24 hrs Laboratory Tests Test 01/10/17 07:40 Activated Partial Thromboplast Time 107.3 *H Medications Medications Current Medications Ondansetron HCl (Zofran Inj) 4 mg Q6H PRN IV NAUSEA AND/OR VOMITING; Start at 23:00 Acetaminophen (Tylenol Tab) 650 mg Q6H PRN PO PAIN LEVEL 1-3 OR FEVER; Start 01/02/17 at 23:00 Docusate Sodium (Colace) 100 mg Q12H PRN PO CONSTIPATION; Start 01/02/17 at 23 :00 Bisacodyl (Dulcolax) 5 mg DAILY PRN PO CONSTIPATION; Start 01/02/17 at 23:00 Aspirin (Aspirin) 81 mg DAILY PO Last administered on 01/10/17 08:55; Admin Dose 81 MG; Start 01/03/17 at 09:00 Carvedilol (Coreg) 12.5 mg BID PO Last administered on 01/10/17 08:56; Admin Dose 12.5 MG; Start 01/03/17 at 09:00 Clonidine (Catapres) 0.2 mg BID PO Last administered on 01/10/17 08:57; Admin Dose 0.2 MG; Start 01/03/17 at 09:00 Folic Acid (Folic Acid) 1 mg DAILY PO Last administered on 01/10/17 08:55; Admin Dose 1 MG; Start 01/03/17 at 09:00 Furosemide (Lasix) 20 mg DAILY PO Last administered on 01/10/17 08:56; Admin Dose 20 MG; Start 01/03/17 at 09:00 Hydralazine HCl (Apresoline) 50 mg Q12 PRN PO FOR SBP ABOVE 170 Last administered on 01/09/17 17:26; Admin Dose 50 MG; Start 01/02/17 at 23:00 Labetalol HCl (Normodyne) 100 mg BID PO ; Start 01/03/17 at 09:00; Status Future Hold Multivit/Ca Carb/ B Cmplx/FA/Prenat (Sommer-Samantha) 1 tab DAILY PO Last administered on 01/10/17 08:55; Admin Dose 1 TAB; Start 01/03/17 at 09:00 Nifedipine (Procardia Xl) 60 mg DAILY PO Last administered on 01/10/17 08:56; Admin Dose 60 MG; Start 01/03/17 at 09:00 Topiramate (Topamax Sprinkle) 25 mg BID PO Last administered on 01/10/17 08:55 ; Admin Dose 25 MG; Start 01/03/17 at 09:00 Apixaban (Eliquis) 5 mg BID PO Last administered on 11/28/17at 21:58; Admin Dose 5 MG; Start 01/03/17 at 21:00; Status Future Hold Morphine Sulfate (morphine) 4 mg Q4H PRN IV SEVERE PAIN LEVEL 7-10 Last administered on 01/10/17 08:58; Admin Dose 4 MG; Start 01/06/17 at 03:30 Nifedipine (Procardia Xl) 30 mg HS PO Last administered on 01/09/17 20:26; Admin Dose 30 MG; Start 01/08/17 at 21:00 Diphenhydramine HCl (Benadryl) 25 mg Q6 PRN IV ITCHING Last administered on 08:57; Admin Dose 25 MG; Start 01/08/17 at 18:00 KATLIN MENDOZA Jan 10, 2017 10:04
--- NOTE | 2017-01-10 10:57 | CONS ---
Date/Time of Note Date/Time of Note DATE: 01/10/17 TIME: 10:56 Assessment/Plan Assessment/Plan Additional Assessment/Plan 1. Preoperative evaluation prior to placement of a peritoneal dialysis catheter.-negative trop x 2/no change on serial ecg's/Nl EF by most recent echo during alst admission with no contraindicated valve lesions. Thus ok to proceed to OR for placement of PD catheter at moderate CV risk without further noninvasive evaluation - pt had procedure day prior, tolerated well - pain Rxa s needed 2. Hypertension-uncontrolled - will Rxx with HD and meds 3. Left lower extremity deep venous thrombosis - on therpy 4. Anemia- H/H syable - no acute bleed 5. Prior failed chest wall catheters. Consultation Date/Type/Reason Admit Date/Time Jan 05, 2017 at 14:32 Initial Consult Date Type of Consultation: RENAL Referring Provider: JULISSA NI MD 24 HR Interval Summary Free Text/Dictation Now post procedure day prior - tolerated well \ ROS: No fever, no chills, no nausea, no vomiting, no diarrhea/constipation No recent weight changes No chest pain, no PND, no orthopnea No dizziness, blurred vision No thirst, no heat or cold intolerance Exam/Review of Systems Vital Signs Vitals Vital Signs Date Time Temp Pulse Resp B/P Pulse Ox O2 Delivery O2 Flow Rate FiO2 01/10/17 09:05 81 164/98 01/10/17 02:10 97.6 16 99 01/09/17 16:39 Room Air Intake and Output 01/09/17 01/09/17 01/10/17 14:59 22:59 06:59 Intake Total 581 ml 714.5 ml 1024.5 ml Output Total 3500 ml 10 ml Balance -2919 ml 704.5 ml 1024.5 ml Exam General: WN/WD/NAD, AOx 3 HEENT: Unicetric/atraumatic/EOMI (follows commands) NECK: JVD elevated, no thyromegaly Lymph: no lymphadenopathy HEART: regular with no S3, II/ systolic murmur at apex LUNGS: Coarse sounds ABD: soft, NT, ND, +BS : Intact Neuro: non focal SKIN: chronic changes EXT: trace edema Results Result Diagram: 01/09/17 0457 01/09/17 0457 Results 24 hrs Laboratory Tests Test 01/10/17 07:40 Activated Partial Thromboplast Time 107.3 *H Medications Medications Current Medications Ondansetron HCl (Zofran Inj) 4 mg Q6H PRN IV NAUSEA AND/OR VOMITING; Start at 23:00 Acetaminophen (Tylenol Tab) 650 mg Q6H PRN PO PAIN LEVEL 1-3 OR FEVER; Start 01/02/17 at 23:00 Docusate Sodium (Colace) 100 mg Q12H PRN PO CONSTIPATION; Start 01/02/17 at 23 :00 Bisacodyl (Dulcolax) 5 mg DAILY PRN PO CONSTIPATION; Start 01/02/17 at 23:00 Aspirin (Aspirin) 81 mg DAILY PO Last administered on 01/10/17 08:55; Admin Dose 81 MG; Start 01/03/17 at 09:00 Carvedilol (Coreg) 12.5 mg BID PO Last administered on 01/10/17 08:56; Admin Dose 12.5 MG; Start 01/03/17 at 09:00 Clonidine (Catapres) 0.2 mg BID PO Last administered on 01/10/17 08:57; Admin Dose 0.2 MG; Start 01/03/17 at 09:00 Folic Acid (Folic Acid) 1 mg DAILY PO Last administered on 01/10/17 08:55; Admin Dose 1 MG; Start 01/03/17 at 09:00 Furosemide (Lasix) 20 mg DAILY PO Last administered on 01/10/17 08:56; Admin Dose 20 MG; Start 01/03/17 at 09:00 Hydralazine HCl (Apresoline) 50 mg Q12 PRN PO FOR SBP ABOVE 170 Last administered on 01/09/17 17:26; Admin Dose 50 MG; Start 01/02/17 at 23:00 Labetalol HCl (Normodyne) 100 mg BID PO ; Start 01/03/17 at 09:00; Status Future Hold Multivit/Ca Carb/ B Cmplx/FA/Prenat (Sommer-Samantha) 1 tab DAILY PO Last administered on 01/10/17 08:55; Admin Dose 1 TAB; Start 01/03/17 at 09:00 Nifedipine (Procardia Xl) 60 mg DAILY PO Last administered on 01/10/17 08:56; Admin Dose 60 MG; Start 01/03/17 at 09:00 Topiramate (Topamax Sprinkle) 25 mg BID PO Last administered on 01/10/17 08:55 ; Admin Dose 25 MG; Start 01/03/17 at 09:00 Apixaban (Eliquis) 5 mg BID PO Last administered on 01/03/17 21:58; Admin Dose 5 MG; Start 01/03/17 at 21:00; Status Future Hold Morphine Sulfate (morphine) 4 mg Q4H PRN IV SEVERE PAIN LEVEL 7-10 Last administered on 01/10/17 08:58; Admin Dose 4 MG; Start 01/06/17 at 03:30 Nifedipine (Procardia Xl) 30 mg HS PO Last administered on 01/09/17 20:26; Admin Dose 30 MG; Start 01/08/17 at 21:00 Diphenhydramine HCl (Benadryl) 25 mg Q6 PRN IV ITCHING Last administered on 08:57; Admin Dose 25 MG; Start 01/08/17 at 18:00 CARINA RITTER MD Jan 10, 2017 10:57
[2017-01-10 14:25] VITALS: BP 137/82; RESP 18
[2017-01-10 16:41] LABS: PROTIME 13.3 Sec (11.9-14.9)
[2017-01-10] MEDS: HEPARIN 25000 UNITS/250 ML 250 ML IV SCH (18:38)
[2017-01-10 20:00] VITALS: BP 122/60; RESP 20
--- NOTE | 2017-01-10 20:28 | CONS ---
Date/Time of Note Date/Time of Note DATE: 01/10/17 TIME: 20:27 Assessment/Plan Assessment/Plan Chief Complaint/Hosp Course 1. Acute deep venous thrombosis of the left lower extremity. 2. EDEMA LEGS better 3. End-stage renal disease. 4. Anemia. 5. Hypertension. 6. Vasculopathy. 7 uremia w prurites 8 s/ppd cath placement plan pd cath care and gentle pd w 500 cc2.5 % out pt rd training out pt at [facility] pd clinic continue hd for now benadryl PRN PD FLUSH Problems: Consultation Date/Type/Reason Admit Date/Time Jan 05, 2017 at 14:32 Type of Consultation: RENAL Referring Provider: JULISSA NI MD 24 HR Interval Summary Constitutional: no complaints Exam/Review of Systems Vital Signs Vitals Vital Signs Date Time Temp Pulse Resp B/P Pulse Ox O2 Delivery O2 Flow Rate FiO2 01/10/17 14:25 98.0 78 18 137/82 100 01/09/17 16:39 Room Air Intake and Output 01/09/17 01/09/17 01/10/17 15:00 23:00 07:00 Intake Total 581 ml 714.5 ml 1024.5 ml Output Total 3500 ml 10 ml Balance -2919 ml 704.5 ml 1024.5 ml Exam Respiratory: clear to auscultation Cardiovascular: regular rate and rhythm Gastrointestinal: soft Musculoskeletal: nl extremities to inspection Extremities: edema (++), normal pulses Results Result Diagram: 01/09/17 0457 01/09/17 0457 Results 24 hrs Laboratory Tests Test 01/10/17 07:40 01/10/17 15:55 Activated Partial Thromboplast Time 107.3 *H 83.0 *H Prothrombin Time 13.3 Prothrombin Time Ratio 1.0 INR International Normalized Ratio 1.00 Medications Medications Current Medications Ondansetron HCl (Zofran Inj) 4 mg Q6H PRN IV NAUSEA AND/OR VOMITING; Start at 23:00 Acetaminophen (Tylenol Tab) 650 mg Q6H PRN PO PAIN LEVEL 1-3 OR FEVER; Start 01/02/17 at 23:00 Docusate Sodium (Colace) 100 mg Q12H PRN PO CONSTIPATION; Start 01/02/17 at 23 :00 Bisacodyl (Dulcolax) 5 mg DAILY PRN PO CONSTIPATION; Start 01/02/17 at 23:00 Aspirin (Aspirin) 81 mg DAILY PO Last administered on 01/10/17 08:55; Admin Dose 81 MG; Start 01/03/17 at 09:00 Carvedilol (Coreg) 12.5 mg BID PO Last administered on 01/10/17 08:56; Admin Dose 12.5 MG; Start 01/03/17 at 09:00 Clonidine (Catapres) 0.2 mg BID PO Last administered on 01/10/17 08:57; Admin Dose 0.2 MG; Start 01/03/17 at 09:00 Folic Acid (Folic Acid) 1 mg DAILY PO Last administered on 01/10/17 08:55; Admin Dose 1 MG; Start 01/03/17 at 09:00 Furosemide (Lasix) 20 mg DAILY PO Last administered on 01/10/17 08:56; Admin Dose 20 MG; Start 01/03/17 at 09:00 Hydralazine HCl (Apresoline) 50 mg Q12 PRN PO FOR SBP ABOVE 170 Last administered on 01/09/17 17:26; Admin Dose 50 MG; Start 01/02/17 at 23:00 Labetalol HCl (Normodyne) 100 mg BID PO ; Start 01/03/17 at 09:00; Status Future Hold Multivit/Ca Carb/ B Cmplx/FA/Prenat (Sommer-Samantha) 1 tab DAILY PO Last administered on 01/10/17 08:55; Admin Dose 1 TAB; Start 01/03/17 at 09:00 Nifedipine (Procardia Xl) 60 mg DAILY PO Last administered on 01/10/17 08:56; Admin Dose 60 MG; Start 01/03/17 at 09:00 Topiramate (Topamax Sprinkle) 25 mg BID PO Last administered on 01/10/17 08:55 ; Admin Dose 25 MG; Start 01/03/17 at 09:00 Apixaban (Eliquis) 5 mg BID PO Last administered on 01/03/17 21:58; Admin Dose 5 MG; Start 01/03/17 at 21:00; Status Future Hold Morphine Sulfate (morphine) 4 mg Q4H PRN IV SEVERE PAIN LEVEL 7-10 Last administered on 01/10/17 18:31; Admin Dose 4 MG; Start 01/06/17 at 03:30 Nifedipine (Procardia Xl) 30 mg HS PO Last administered on 01/09/17 20:26; Admin Dose 30 MG; Start 01/08/17 at 21:00 Diphenhydramine HCl (Benadryl) 25 mg Q6 PRN IV ITCHING Last administered on 19:01; Admin Dose 25 MG; Start 01/08/17 at 18:00 MIKE VEGA MD Jan 10, 2017 20:28
[2017-01-10] MEDS: NIFEdipine (XL) 30 MG TAB PO SCH (22:39)
--- NOTE | 2017-01-10 22:54 | PN ---
Date/Time of Note Date/Time of Note DATE: 01/10/17 TIME: 22:53 Assessment/Plan Lines/Catheters IV [facility] (from [facility]): Saline Lock Assessment/Plan Chief Complaint/Hosp Course -Endstage renal disease and central occlusion and caval thrombosis: It seems the patient had progressed in terms of her left lower extremity deep venous thrombosis. Patient did have deep venous thrombosis findings in the common femoral vein that was identified when we had done her angiogram about 2 weeks ago; therefore, I would not necessarily say that it is an acute finding. However, the patient does have superficial thrombophlebitis of her left greater saphenous vein and she does have calf tenderness with edema of 2+ to 3+ in that segment which seems to be her main discomfort -S/P left groin Perm catheter removal and iliac venoplasty -Start transition to [facility] and patient cleared to be discharged from vascular surgery standpoint -PT/OT and OOB FWB -Elevate LLE while at rest -Discussed findings, plan and management with the patient, she understands. -Thank you for allowing us to partake in the care of your patient. Please call with any questions. Problems: Exam/Review of Systems Vital Signs Vitals Vital Signs Date Time Temp Pulse Resp B/P Pulse Ox O2 Delivery O2 Flow Rate FiO2 01/10/17 20:00 98.6 78 20 122/60 97 01/09/17 16:39 Room Air Intake and Output 01/09/17 01/09/17 01/10/17 14:59 22:59 06:59 Intake Total 581 ml 714.5 ml 1024.5 ml Output Total 3500 ml 10 ml Balance -2919 ml 704.5 ml 1024.5 ml Exam Free Text/Dictation GENERAL: She is alert and oriented x3. PULMONARY: Clear to auscultation bilaterally. CARDIOVASCULAR: S1, S2 present. ABDOMEN: Soft, nontender, nondistended. Bowel sounds positive. Truncal obesity. PD catheter intact RIGHT LOWER EXTREMITY: Palpable femoral pulse, faint pedal pulse. Motor, sensory intact. Cap refill 2 to 3 seconds. LEFT LOWER EXTREMITY: Palpable femoral pulse. Groin incision with marco intact and dry. Faint pedal pulse. Motor and sensory intact. Edema of the lower leg 2+ and tenderness resolved as her thrombophlebitis has resolved. Perm catheter removal site clean Results Result Diagram: 01/09/17 0457 01/09/17 0457 JULISSA NI MD Jan 10, 2017 22:54 JULISSA NI MD Jan 10, 2017 22:54
[2017-01-11 00:57] LABS: INR 1.02; PROTIME 13.5 Sec (11.9-14.9); PT RATIO 1.1
[2017-01-11 01:03] LABS: PARTIAL THROMBOPLASTIN TIME 70.1 Sec (25.0-35.0)
[2017-01-11 02:00] VITALS: BP 121/72; RESP 20
[2017-01-11] MEDS: DIPHENHYDRAMINE 50 MG INJ IV PRN ×3 (02:15→21:14)
[2017-01-11] MEDS: morphine 4 MG/ML VIAL IV PRN ×5 (05:30→22:29)
[2017-01-11 06:54] LABS: ABNORMAL IP MESSAGE 1; BASOPHILS % 0.5 % (0.0-2.0); EOSINOPHILS # 0.7 10^3/ul (0.0-0.5); HEMATOCRIT 21.6 % (37.0-47.0); LYMPHOCYTES # 1.6 10^3/ul (0.8-2.9); MEAN CORPUSCULAR HEMOGLOBIN 29.9 pg (29.0-33.0); MEAN CORPUSCULAR HGB CONC 31.9 g/dl (32.0-37.0); MEAN CORPUSCULAR VOLUME 93.5 fl (82.0-101.0); MEAN PLATELET VOLUME 10.1 fl (7.4-10.4); MONOCYTE # 0.6 10^3/ul (0.3-0.9); MONOCYTES % 9.1 % (0.0-11.0); NEUTROPHIL # 3.4 10^3/ul (1.6-7.5); NEUTROPHILS % 54.1 % (39.0-77.0); PLATELET COUNT 171 10^3/UL (140-415); RED BLOOD COUNT 2.31 10^6/ul (4.20-5.40); RED CELL DISTRIBUTION WIDTH 15.3 % (11.5-14.5); WHITE BLOOD COUNT 6.3 10^3/ul (4.8-10.8)
[2017-01-11 07:09] LABS: HEMOGLOBIN 6.9 g/dl (12.0-16.0); POSITIVE DIFF @See below
[2017-01-11 07:13] LABS: INR 1.03; PROTIME 13.6 Sec (11.9-14.9); PT RATIO 1.1
[2017-01-11 07:17] LABS: PARTIAL THROMBOPLASTIN TIME 75.7 Sec (25.0-35.0)
[2017-01-11 07:25] LABS: ALBUMIN 3.4 g/dl (3.3-4.9); ALBUMIN/GLOBULIN RATIO 0.8; CALCIUM 9.3 mg/dl (8.4-10.2); CREATININE 12.32 mg/dl (0.44-1.00); POTASSIUM 4.2 mmol/L (3.5-5.1); TOTAL PROTEIN 7.6 g/dl (6.1-8.1)
[2017-01-11 07:55] VITALS: BP 124/75; RESP 18
[2017-01-11] MEDS: MULTIVIT/CA CARB/B CMPLX/FA TAB PO SCH (09:04)
[2017-01-11] MEDS: ASPIRIN 81 MG TAB PO SCH (09:04)
[2017-01-11] MEDS: NIFEdipine (XL) 60 MG TAB PO SCH (09:04)
[2017-01-11] MEDS: FOLIC ACID 1 MG TAB PO SCH (09:05)
[2017-01-11] MEDS: FUROSEMIDE 20 MG TAB PO SCH (09:05)
[2017-01-11] MEDS: SEVELAMER 800 MG TAB PO SCH ×3 (09:05→18:22)
[2017-01-11] MEDS: TOPIRAMATE SPRINKLE 25 MG CAP PO SCH ×2 (09:05→21:12)
[2017-01-11] MEDS ORDERED: SOD CHLORIDE 0.9% 250 ML IV* ONE (09:36)
--- NOTE | 2017-01-11 09:47 | PN ---
Date/Time of Note Date/Time of Note DATE: 01/11/17 TIME: 09:43 Assessment/Plan VTE Prophylaxis VTE Prophylaxis Intervention: heparin Lines/Catheters IV Catheter Type (from Nrsg): Saline Lock Assessment/Plan Chief Complaint/Hosp Course S: No acute events overnight. O: VS (see below) PE: Lying in bed, no acute distress Pupils equal round reactive light extra ocular muscles are intact Supple resp nonlabored S1, S2 heard no gross abd distension no UE edema Assessment/Plan: 31 yo F with ESRD on HD, recent admission for MSSA CLABSI/ tunnel infection, found to have large LLE DVT at that time readmitted for worsening LLE pain. Imaging with worsening of clot despite anticoagulation. 1. LLE DVT - also superficial thrombophlebitis: currently on heparin drip, no signs of bleeding. - Given lower hemoglobin this morning, will hold heparin drip. - We will also order for 2 units PRBC given hemoglobin 6.9 today - based on vascular surgery recommendations, will transition to Eliquis dose 10 mg BID today as well 2. ESRD: nephrology on cs for HD-->PD CATHETER PLACED 01.05 -Continue dialysis per renal recommendations 3. pain intolerance: cont current pain regimen, may need to reach out to her outpatient pain medicine specialist. Problems: Exam/Review of Systems Vital Signs Vitals Vital Signs Date Time Temp Pulse Resp B/P Pulse Ox O2 Delivery O2 Flow Rate FiO2 01/11/17 07:55 98.0 66 18 124/75 99 01/09/17 16:39 Room Air Intake and Output 01/10/17 01/10/17 01/11/17 15:00 23:00 07:00 Intake Total 1115.5 ml 643 ml Output Total 0 ml Balance 1115.5 ml 643 ml Results Result Diagram: 01/11/17 0640 01/11/17 0640 Results 24 hrs Laboratory Tests Test 01/10/17 15:55 01/11/17 00:30 01/11/17 06:40 Prothrombin Time 13.3 13.5 13.6 Prothrombin Time Ratio 1.0 1.1 1.1 INR International Normalized Ratio 1.00 1.02 1.03 Activated Partial Thromboplast Time 83.0 *H 70.1 *H 75.7 *H White Blood Count 6.3 Red Blood Count 2.31 L Hemoglobin 6.9 *L Hematocrit 21.6 L Mean Corpuscular Volume 93.5 Mean Corpuscular Hemoglobin 29.9 Mean Corpuscular Hemoglobin Concent 31.9 L Red Cell Distribution Width 15.3 H Platelet Count 171 # Mean Platelet Volume 10.1 Neutrophils % 54.1 Lymphocytes % 25.0 Monocytes % 9.1 Eosinophils % 11.0 H Basophils % 0.5 Nucleated Red Blood Cells % 0.0 Neutrophils # 3.4 Lymphocytes # 1.6 Monocytes # 0.6 Eosinophils # 0.7 H Basophils # 0.0 Nucleated Red Blood Cells # 0.0 Sodium Level 139 Potassium Level 4.2 Chloride Level 99 Carbon Dioxide Level 24 Anion Gap 20 H Blood Urea Nitrogen 83 H Creatinine 12.32 H Glucose Level 124 Calcium Level 9.3 Total Bilirubin 0.0 L Direct Bilirubin 0.00 Indirect Bilirubin 0.0 Aspartate Amino Transf (AST/SGOT) 15 Alanine Aminotransferase (ALT/SGPT) 16 Alkaline Phosphatase 72 Total Protein 7.6 Albumin 3.4 Globulin 4.20 H Albumin/Globulin Ratio 0.80 Medications Medications Current Medications Ondansetron HCl (Zofran Inj) 4 mg Q6H PRN IV NAUSEA AND/OR VOMITING; Start at 23:00 Acetaminophen (Tylenol Tab) 650 mg Q6H PRN PO PAIN LEVEL 1-3 OR FEVER; Start 01/02/17 at 23:00 Docusate Sodium (Colace) 100 mg Q12H PRN PO CONSTIPATION; Start 01/02/17 at 23 :00 Bisacodyl (Dulcolax) 5 mg DAILY PRN PO CONSTIPATION; Start 01/02/17 at 23:00 Aspirin (Aspirin) 81 mg DAILY PO Last administered on 01/11/17 09:04; Admin Dose 81 MG; Start 01/03/17 at 09:00 Carvedilol (Coreg) 12.5 mg BID PO Last administered on 01/11/17 09:05; Admin Dose 12.5 MG; Start 01/03/17 at 09:00 Clonidine (Catapres) 0.2 mg BID PO Last administered on 01/11/17 09:04; Admin Dose 0.2 MG; Start 01/03/17 at 09:00 Folic Acid (Folic Acid) 1 mg DAILY PO Last administered on 01/11/17 09:05; Admin Dose 1 MG; Start 01/03/17 at 09:00 Furosemide (Lasix) 20 mg DAILY PO Last administered on 01/11/17 09:05; Admin Dose 20 MG; Start 01/03/17 at 09:00 Hydralazine HCl (Apresoline) 50 mg Q12 PRN PO FOR SBP ABOVE 170 Last administered on 01/09/17 17:26; Admin Dose 50 MG; Start 01/02/17 at 23:00 Labetalol HCl (Normodyne) 100 mg BID PO ; Start 01/03/17 at 09:00; Status Future Hold Multivit/Ca Carb/ B Cmplx/FA/Prenat (Sommer-Samantha) 1 tab DAILY PO Last administered on 01/11/17 09:04; Admin Dose 1 TAB; Start 01/03/17 at 09:00 Nifedipine (Procardia Xl) 60 mg DAILY PO Last administered on 01/11/17 09:04; Admin Dose 60 MG; Start 01/03/17 at 09:00 Topiramate (Topamax Sprinkle) 25 mg BID PO Last administered on 01/11/17 09:05 ; Admin Dose 25 MG; Start 01/03/17 at 09:00 Apixaban (Eliquis) 5 mg BID PO Last administered on 01/03/17 21:58; Admin Dose 5 MG; Start 01/03/17 at 21:00; Status Future Hold Morphine Sulfate (morphine) 4 mg Q4H PRN IV SEVERE PAIN LEVEL 7-10 Last administered on 01/11/17 09:06; Admin Dose 4 MG; Start 01/06/17 at 03:30 Nifedipine (Procardia Xl) 30 mg HS PO Last administered on 01/10/17 22:39; Admin Dose 30 MG; Start 01/08/17 at 21:00 Diphenhydramine HCl 25 mg 25 mg Q6 PRN IV ITCHING Last administered on 09:10; Admin Dose 25 MG; Start 01/08/17 at 18:00 Sodium Chloride (NS) 250 ml @ 0 mls/hr Q0M ONCE IV* ; Start 01/11/17 at 09:36; Stop 01/11/17 at 09:37; Status UNV Apixaban (Eliquis) 10 mg BID PO ; Start 01/11/17 at 10:00; Status UNV KATLIN MENDOZA Jan 11, 2017 09:47
--- NOTE | 2017-01-11 11:18 | CONS ---
Date/Time of Note Date/Time of Note DATE: 01/11/17 TIME: 11:16 Assessment/Plan Assessment/Plan Chief Complaint/Hosp Course IMPRESSION: 1. Preoperative evaluation prior to placement of a peritoneal dialysis catheter.-negative trop x 2/no change on serial ecg's/Nl EF by most recent echo during last admission with no contraindicated valve lesions. Thus ok to proceed to OR for placement of PD catheter at moderate CV risk without further noninvasive evaluation. Mow post-op s/p PD catheter placement and removal of femoral catheter 2. Hypertension-uncontrolled 3. Left lower extremity deep venous thrombosis. 4. Anemia-worsening 5. Prior failed chest wall catheters. Recc: -Continue coreg/asa/procardia with wel controlled BP at this time -To receive transfusions of PRBC's -HD for volume removal Problems: Consultation Date/Type/Reason Admit Date/Time Jan 05, 2017 at 14:32 Initial Consult Date 01/04/2017 Type of Consultation: cardiology Reason for Consultation Pre-op Referring Provider: JULISSA NI MD Exam/Review of Systems Vital Signs Vitals Vital Signs Date Time Temp Pulse Resp B/P Pulse Ox O2 Delivery O2 Flow Rate FiO2 01/11/17 07:55 98.0 66 18 124/75 99 01/09/17 16:39 Room Air Intake and Output 01/10/17 01/10/17 01/11/17 15:00 23:00 07:00 Intake Total 1115.5 ml 643 ml Output Total 0 ml Balance 1115.5 ml 643 ml Exam Review of Systems: CONSTITUTIONAL: No fevers, chills. PULMONARY: No sob CARDIOVASCULAR: No chest pain/palpitations GASTROINTESTINAL: No nausea/vomiting. GENITOURINARY: No hematuria/dysuria. MUSCULOSKELETAL: No myagias/arthalgias. PSYCHIATRIC: The patient denies depression. NEUROLOGIC: No weakness Constitutional: alert, oriented Psych: no complaints Head: normocephalic ENMT: mucosa pink and moist Neck: jvd (9 cm water), supple Respiratory: diminished breath sounds Cardiovascular: regular rate and rhythm Gastrointestinal: non-tender, soft Musculoskeletal: muscle tone (normal) Extremities: edema (none) Neurological: other (No focal deficits) Results Result Diagram: 01/11/17 0640 01/11/17 0640 Results 24 hrs Laboratory Tests Test 01/10/17 15:55 01/11/17 00:30 01/11/17 06:40 Prothrombin Time 13.3 13.5 13.6 Prothrombin Time Ratio 1.0 1.1 1.1 INR International Normalized Ratio 1.00 1.02 1.03 Activated Partial Thromboplast Time 83.0 *H 70.1 *H 75.7 *H White Blood Count 6.3 Red Blood Count 2.31 L Hemoglobin 6.9 *L Hematocrit 21.6 L Mean Corpuscular Volume 93.5 Mean Corpuscular Hemoglobin 29.9 Mean Corpuscular Hemoglobin Concent 31.9 L Red Cell Distribution Width 15.3 H Platelet Count 171 # Mean Platelet Volume 10.1 Neutrophils % 54.1 Lymphocytes % 25.0 Monocytes % 9.1 Eosinophils % 11.0 H Basophils % 0.5 Nucleated Red Blood Cells % 0.0 Neutrophils # 3.4 Lymphocytes # 1.6 Monocytes # 0.6 Eosinophils # 0.7 H Basophils # 0.0 Nucleated Red Blood Cells # 0.0 Pathologist Review (Hematology) Y Sodium Level 139 Potassium Level 4.2 Chloride Level 99 Carbon Dioxide Level 24 Anion Gap 20 H Blood Urea Nitrogen 83 H Creatinine 12.32 H Glucose Level 124 Calcium Level 9.3 Total Bilirubin 0.0 L Direct Bilirubin 0.00 Indirect Bilirubin 0.0 Aspartate Amino Transf (AST/SGOT) 15 Alanine Aminotransferase (ALT/SGPT) 16 Alkaline Phosphatase 72 Total Protein 7.6 Albumin 3.4 Globulin 4.20 H Albumin/Globulin Ratio 0.80 Medications Medications Current Medications Ondansetron HCl (Zofran Inj) 4 mg Q6H PRN IV NAUSEA AND/OR VOMITING; Start at 23:00 Acetaminophen (Tylenol Tab) 650 mg Q6H PRN PO PAIN LEVEL 1-3 OR FEVER; Start 01/02/17 at 23:00 Docusate Sodium (Colace) 100 mg Q12H PRN PO CONSTIPATION; Start 01/02/17 at 23 :00 Bisacodyl (Dulcolax) 5 mg DAILY PRN PO CONSTIPATION; Start 01/02/17 at 23:00 Aspirin (Aspirin) 81 mg DAILY PO Last administered on 01/11/17 09:04; Admin Dose 81 MG; Start 01/03/17 at 09:00 Carvedilol (Coreg) 12.5 mg BID PO Last administered on 01/11/17 09:05; Admin Dose 12.5 MG; Start 01/03/17 at 09:00 Clonidine (Catapres) 0.2 mg BID PO Last administered on 01/11/17 09:04; Admin Dose 0.2 MG; Start 01/03/17 at 09:00 Folic Acid (Folic Acid) 1 mg DAILY PO Last administered on 01/11/17 09:05; Admin Dose 1 MG; Start 01/03/17 at 09:00 Furosemide (Lasix) 20 mg DAILY PO Last administered on 01/11/17 09:05; Admin Dose 20 MG; Start 01/03/17 at 09:00 Hydralazine HCl (Apresoline) 50 mg Q12 PRN PO FOR SBP ABOVE 170 Last administered on 01/09/17 17:26; Admin Dose 50 MG; Start 01/02/17 at 23:00 Labetalol HCl (Normodyne) 100 mg BID PO ; Start 01/03/17 at 09:00; Status Future Hold Multivit/Ca Carb/ B Cmplx/FA/Prenat (Sommer-Samantha) 1 tab DAILY PO Last administered on 01/11/17 09:04; Admin Dose 1 TAB; Start 01/03/17 at 09:00 Nifedipine (Procardia Xl) 60 mg DAILY PO Last administered on 01/11/17 09:04; Admin Dose 60 MG; Start 01/03/17 at 09:00 Topiramate (Topamax Sprinkle) 25 mg BID PO Last administered on 01/11/17 09:05 ; Admin Dose 25 MG; Start 01/03/17 at 09:00 Apixaban (Eliquis) 5 mg BID PO Last administered on 01/03/17 21:58; Admin Dose 5 MG; Start 01/03/17 at 21:00; Status Future Hold Morphine Sulfate (morphine) 4 mg Q4H PRN IV SEVERE PAIN LEVEL 7-10 Last administered on 01/11/17 09:06; Admin Dose 4 MG; Start 01/06/17 at 03:30 Nifedipine (Procardia Xl) 30 mg HS PO Last administered on 01/10/17 22:39; Admin Dose 30 MG; Start 01/08/17 at 21:00 Diphenhydramine HCl (Benadryl) 25 mg Q6 PRN IV ITCHING Last administered on t 09:10; Admin Dose 25 MG; Start 01/08/17 at 18:00 Apixaban (Eliquis) 10 mg BID PO ; Start 01/11/17 at 10:00 ETHAN MCKINLEY Jan 11, 2017 11:18
[2017-01-11] MEDS: APIXABAN 5 MG TABLET PO SCH ×2 (12:51→21:12)
[2017-01-11 12:55] VITALS: BP 118/70; PULSE 67; RESP 18
[2017-01-11] MEDS: DIPHENHYDRAMINE 50 MG INJ IV SCH (15:19)
[2017-01-11 15:52] VITALS: BP 152/92; PULSE 68
--- NOTE | 2017-01-11 16:32 | CONS ---
Date/Time of Note Date/Time of Note DATE: 01/11/17 TIME: 16:31 Assessment/Plan Assessment/Plan Chief Complaint/Hosp Course 1. Acute deep venous thrombosis of the left lower extremity. 2. EDEMA LEGS better 3. End-stage renal disease. 4. Anemia. 5. Hypertension. 6. Vasculopathy. 7 uremia w prurites on hd and pd 8 s/ppd cath placement plan pd cath care and gentle pd w 500 cc2.5 % dex out pt rd training out pt at [facility] pd clinic continue hd for now benadryl PRN PD FLUSH Problems: Consultation Date/Type/Reason Admit Date/Time Jan 05, 2017 at 14:32 Type of Consultation: renal Referring Provider: JULISSA NI MD 24 HR Interval Summary Constitutional: No febrile Exam/Review of Systems Vital Signs Vitals Vital Signs Date Time Temp Pulse Resp B/P Pulse Ox O2 Delivery O2 Flow Rate FiO2 01/11/17 15:52 68 01/11/17 12:55 97.9 18 118/70 97 Room Air Intake and Output 01/10/17 01/10/17 01/11/17 15:00 23:00 07:00 Intake Total 1115.5 ml 643 ml Output Total 0 ml Balance 1115.5 ml 643 ml Exam Respiratory: clear to auscultation Cardiovascular: regular rate and rhythm Gastrointestinal: soft Musculoskeletal: nl extremities to inspection Extremities: normal pulses Results Result Diagram: 01/11/17 0640 01/11/17 0640 Results 24 hrs Laboratory Tests Test 01/11/17 00:30 01/11/17 06:40 Prothrombin Time 13.5 13.6 Prothrombin Time Ratio 1.1 1.1 INR International Normalized Ratio 1.02 1.03 Activated Partial Thromboplast Time 70.1 *H 75.7 *H White Blood Count 6.3 Red Blood Count 2.31 L Hemoglobin 6.9 *L Hematocrit 21.6 L Mean Corpuscular Volume 93.5 Mean Corpuscular Hemoglobin 29.9 Mean Corpuscular Hemoglobin Concent 31.9 L Red Cell Distribution Width 15.3 H Platelet Count 171 # Mean Platelet Volume 10.1 Neutrophils % 54.1 Lymphocytes % 25.0 Monocytes % 9.1 Eosinophils % 11.0 H Basophils % 0.5 Nucleated Red Blood Cells % 0.0 Neutrophils # 3.4 Lymphocytes # 1.6 Monocytes # 0.6 Eosinophils # 0.7 H Basophils # 0.0 Nucleated Red Blood Cells # 0.0 Pathologist Review (Hematology) Y Sodium Level 139 Potassium Level 4.2 Chloride Level 99 Carbon Dioxide Level 24 Anion Gap 20 H Blood Urea Nitrogen 83 H Creatinine 12.32 H Glucose Level 124 Calcium Level 9.3 Total Bilirubin 0.0 L Direct Bilirubin 0.00 Indirect Bilirubin 0.0 Aspartate Amino Transf (AST/SGOT) 15 Alanine Aminotransferase (ALT/SGPT) 16 Alkaline Phosphatase 72 Total Protein 7.6 Albumin 3.4 Globulin 4.20 H Albumin/Globulin Ratio 0.80 Medications Medications Current Medications Ondansetron HCl (Zofran Inj) 4 mg Q6H PRN IV NAUSEA AND/OR VOMITING; Start at 23:00 Acetaminophen (Tylenol Tab) 650 mg Q6H PRN PO PAIN LEVEL 1-3 OR FEVER; Start 01/02/17 at 23:00 Docusate Sodium (Colace) 100 mg Q12H PRN PO CONSTIPATION; Start 01/02/17 at 23 :00 Bisacodyl (Dulcolax) 5 mg DAILY PRN PO CONSTIPATION; Start 01/02/17 at 23:00 Aspirin (Aspirin) 81 mg DAILY PO Last administered on 01/11/17 09:04; Admin Dose 81 MG; Start 01/03/17 at 09:00 Carvedilol (Coreg) 12.5 mg BID PO Last administered on 01/11/17 09:05; Admin Dose 12.5 MG; Start 01/03/17 at 09:00 Clonidine (Catapres) 0.2 mg BID PO Last administered on 01/11/17 09:04; Admin Dose 0.2 MG; Start 01/03/17 at 09:00 Folic Acid (Folic Acid) 1 mg DAILY PO Last administered on 01/11/17 09:05; Admin Dose 1 MG; Start 01/03/17 at 09:00 Furosemide (Lasix) 20 mg DAILY PO Last administered on 01/11/17 09:05; Admin Dose 20 MG; Start 01/03/17 at 09:00 Hydralazine HCl (Apresoline) 50 mg Q12 PRN PO FOR SBP ABOVE 170 Last administered on 01/09/17 17:26; Admin Dose 50 MG; Start 01/02/17 at 23:00 Labetalol HCl (Normodyne) 100 mg BID PO ; Start 01/03/17 at 09:00; Status Future Hold Multivit/Ca Carb/ B Cmplx/FA/Prenat (Sommer-Samantha) 1 tab DAILY PO Last administered on 01/11/17 09:04; Admin Dose 1 TAB; Start 01/03/17 at 09:00 Nifedipine (Procardia Xl) 60 mg DAILY PO Last administered on 01/11/17 09:04; Admin Dose 60 MG; Start 01/03/17 at 09:00 Topiramate (Topamax Sprinkle) 25 mg BID PO Last administered on 01/11/17 09:05 ; Admin Dose 25 MG; Start 01/03/17 at 09:00 Apixaban (Eliquis) 5 mg BID PO Last administered on 01/03/17 21:58; Admin Dose 5 MG; Start 01/03/17 at 21:00; Status Future Hold Morphine Sulfate (morphine) 4 mg Q4H PRN IV SEVERE PAIN LEVEL 7-10 Last administered on 01/11/17 13:16; Admin Dose 4 MG; Start 01/06/17 at 03:30 Nifedipine (Procardia Xl) 30 mg HS PO Last administered on 01/10/17 22:39; Admin Dose 30 MG; Start 01/08/17 at 21:00 Diphenhydramine HCl (Benadryl) 25 mg Q6 PRN IV ITCHING Last administered on 09:10; Admin Dose 25 MG; Start 01/08/17 at 18:00 Apixaban (Eliquis) 10 mg BID PO Last administered on 01/11/17 12:51; Admin Dose 10 MG; Start 01/11/17 at 10:00 MIKE VEGA MD Jan 11, 2017 16:32
[2017-01-11 17:11] LABS: PATH REVIEW CH
[2017-01-11 20:00] VITALS: BP 141/87; RESP 20
[2017-01-11] MEDS: NIFEdipine (XL) 30 MG TAB PO SCH (21:13)
[2017-01-12 02:00] VITALS: BP 127/77; RESP 20
[2017-01-12] MEDS: DIPHENHYDRAMINE 50 MG INJ IV PRN ×3 (03:00→15:17)
[2017-01-12] MEDS: morphine 4 MG/ML VIAL IV PRN ×5 (03:01→22:06)
[2017-01-12 06:20] LABS: CALCIUM 9.1 mg/dl (8.4-10.2); CREATININE 12.92 mg/dl (0.44-1.00)
[2017-01-12 08:08] VITALS: BP 134/79; RESP 18
[2017-01-12 08:34] LABS: BASOPHILS % 0.5 % (0.0-2.0); EOSINOPHILS # 0.9 10^3/ul (0.0-0.5); EOSINOPHILS % 14.7 % (0.0-7.0); HEMATOCRIT 24.2 % (37.0-47.0); HEMOGLOBIN 7.8 g/dl (12.0-16.0); LYMPHOCYTES # 1.2 10^3/ul (0.8-2.9); LYMPHOCYTES % 20.8 % (15.0-51.0); MEAN CORPUSCULAR HEMOGLOBIN 29.8 pg (29.0-33.0); MEAN CORPUSCULAR HGB CONC 32.2 g/dl (32.0-37.0); MEAN CORPUSCULAR VOLUME 92.4 fl (82.0-101.0); MEAN PLATELET VOLUME 10.8 fl (7.4-10.4); MONOCYTE # 0.7 10^3/ul (0.3-0.9); MONOCYTES % 11.4 % (0.0-11.0); NEUTROPHIL # 3.1 10^3/ul (1.6-7.5); NEUTROPHILS % 52.3 % (39.0-77.0); PLATELET COUNT 184 10^3/UL (140-415); RED BLOOD COUNT 2.62 10^6/ul (4.20-5.40); RED CELL DISTRIBUTION WIDTH 15.9 % (11.5-14.5)
[2017-01-12] MEDS: ASPIRIN 81 MG TAB PO SCH (08:58)
[2017-01-12] MEDS: SEVELAMER 800 MG TAB PO SCH ×3 (08:59→17:15)
[2017-01-12] MEDS: NIFEdipine (XL) 60 MG TAB PO SCH (09:00)
[2017-01-12] MEDS: MULTIVIT/CA CARB/B CMPLX/FA TAB PO SCH (09:00)
[2017-01-12] MEDS: TOPIRAMATE SPRINKLE 25 MG CAP PO SCH ×2 (09:01→20:40)
[2017-01-12] MEDS: FOLIC ACID 1 MG TAB PO SCH (09:01)
[2017-01-12] MEDS: FUROSEMIDE 20 MG TAB PO SCH (09:02)
[2017-01-12] MEDS: APIXABAN 5 MG TABLET PO SCH ×2 (09:02→20:40)
--- NOTE | 2017-01-12 13:12 | CONS ---
Date/Time of Note Date/Time of Note DATE: 01/12/17 TIME: 13:10 Assessment/Plan Assessment/Plan Chief Complaint/Hosp Course IMPRESSION: 1. Preoperative evaluation prior to placement of a peritoneal dialysis catheter.-negative trop x 2/no change on serial ecg's/Nl EF by most recent echo during last admission with no contraindicated valve lesions. Thus ok to proceed to OR for placement of PD catheter at moderate CV risk without further noninvasive evaluation. Mow post-op s/p PD catheter placement and removal of femoral catheter 2. Hypertension-Now well controlled 3. Left lower extremity deep venous thrombosis. 4. Anemia-s/p transfusion 5. Prior failed chest wall catheters. Recc: -Continue coreg/asa/procardia with wel controlled BP at this time -HD for volume removal -Follow Hgb closely Problems: Consultation Date/Type/Reason Admit Date/Time Jan 05, 2017 at 14:32 Initial Consult Date 01/04/2017 Type of Consultation: cardiology Reason for Consultation pre-op/HTN Referring Provider: JULISSA NI MD Exam/Review of Systems Vital Signs Vitals Vital Signs Date Time Temp Pulse Resp B/P Pulse Ox O2 Delivery O2 Flow Rate FiO2 01/12/17 08:08 97.8 68 18 134/79 99 01/11/17 12:55 Room Air Intake and Output 01/11/17 01/11/17 01/12/17 15:00 23:00 07:00 Intake Total 1070 ml Output Total 0 ml Balance 1070 ml Exam Review of Systems: CONSTITUTIONAL: No fevers, chills. PULMONARY: No sob CARDIOVASCULAR: No chest pain/palpitations GASTROINTESTINAL: No nausea/vomiting. GENITOURINARY: No hematuria/dysuria. MUSCULOSKELETAL: No myagias/arthalgias. PSYCHIATRIC: The patient denies depression. NEUROLOGIC: No weakness Constitutional: alert, oriented Psych: no complaints Head: normocephalic ENMT: mucosa pink and moist Neck: jvd (9 cm water), supple Respiratory: diminished breath sounds (at bases/B) Cardiovascular: regular rate and rhythm Gastrointestinal: non-tender, soft Musculoskeletal: muscle tone (normal) Extremities: edema (L>R) Neurological: other (No focal deficits) Results Result Diagram: 01/12/17 0740 01/12/17 0527 Results 24 hrs Laboratory Tests Test 01/12/17 05:27 01/12/17 07:40 Sodium Level 137 Potassium Level 5.0 Chloride Level 100 Carbon Dioxide Level 21 Anion Gap 21 H Blood Urea Nitrogen 90 H Creatinine 12.92 H Glucose Level 109 Calcium Level 9.1 White Blood Count 6.0 Red Blood Count 2.62 L Hemoglobin 7.8 L Hematocrit 24.2 L Mean Corpuscular Volume 92.4 Mean Corpuscular Hemoglobin 29.8 Mean Corpuscular Hemoglobin Concent 32.2 Red Cell Distribution Width 15.9 H Platelet Count 184 Mean Platelet Volume 10.8 H Neutrophils % 52.3 Lymphocytes % 20.8 Monocytes % 11.4 H Eosinophils % 14.7 H Basophils % 0.5 Nucleated Red Blood Cells % 0.0 Neutrophils # 3.1 Lymphocytes # 1.2 Monocytes # 0.7 Eosinophils # 0.9 H Basophils # 0.0 Nucleated Red Blood Cells # 0.0 Medications Medications Current Medications Ondansetron HCl (Zofran Inj) 4 mg Q6H PRN IV NAUSEA AND/OR VOMITING; Start at 23:00 Acetaminophen (Tylenol Tab) 650 mg Q6H PRN PO PAIN LEVEL 1-3 OR FEVER; Start 01/02/17 at 23:00 Docusate Sodium (Colace) 100 mg Q12H PRN PO CONSTIPATION; Start 01/02/17 at 23 :00 Bisacodyl (Dulcolax) 5 mg DAILY PRN PO CONSTIPATION; Start 01/02/17 at 23:00 Aspirin (Aspirin) 81 mg DAILY PO Last administered on 01/12/17 08:58; Admin Dose 81 MG; Start 01/03/17 at 09:00 Carvedilol (Coreg) 12.5 mg BID PO Last administered on 01/12/17 09:00; Admin Dose 12.5 MG; Start 01/03/17 at 09:00 Clonidine (Catapres) 0.2 mg BID PO Last administered on 01/12/17 08:59; Admin Dose 0.2 MG; Start 01/03/17 at 09:00 Folic Acid (Folic Acid) 1 mg DAILY PO Last administered on 01/12/17 09:01; Admin Dose 1 MG; Start 01/03/17 at 09:00 Furosemide (Lasix) 20 mg DAILY PO Last administered on 01/12/17 09:02; Admin Dose 20 MG; Start 01/03/17 at 09:00 Hydralazine HCl (Apresoline) 50 mg Q12 PRN PO FOR SBP ABOVE 170 Last administered on 01/09/17 17:26; Admin Dose 50 MG; Start 01/02/17 at 23:00 Labetalol HCl (Normodyne) 100 mg BID PO ; Start 01/03/17 at 09:00; Status Future Hold Multivit/Ca Carb/ B Cmplx/FA/Prenat (Sommer-Samantha) 1 tab DAILY PO Last administered on 01/12/17 09:00; Admin Dose 1 TAB; Start 01/03/17 at 09:00 Nifedipine (Procardia Xl) 60 mg DAILY PO Last administered on 01/12/17 09:00; Admin Dose 60 MG; Start 01/03/17 at 09:00 Topiramate (Topamax Sprinkle) 25 mg BID PO Last administered on 01/12/17 09:01 ; Admin Dose 25 MG; Start 01/03/17 at 09:00 Apixaban (Eliquis) 5 mg BID PO Last administered on 01/03/17 21:58; Admin Dose 5 MG; Start 01/03/17 at 21:00; Status Future Hold Morphine Sulfate (morphine) 4 mg Q4H PRN IV SEVERE PAIN LEVEL 7-10 Last administered on 01/12/17 12:59; Admin Dose 4 MG; Start 01/06/17 at 03:30 Nifedipine (Procardia Xl) 30 mg HS PO Last administered on 01/11/17 21:13; Admin Dose 30 MG; Start 01/08/17 at 21:00 Diphenhydramine HCl (Benadryl) 25 mg Q6 PRN IV ITCHING Last administered on 08:55; Admin Dose 25 MG; Start 01/08/17 at 18:00 Apixaban (Eliquis) 10 mg BID PO Last administered on 01/12/17 09:02; Admin Dose 10 MG; Start 01/11/17 at 10:00 ETHAN MCKINLEY Jan 12, 2017 13:12
[2017-01-12 13:47] VITALS: BP 126/79; RESP 18
--- NOTE | 2017-01-12 14:31 | PDOCDIS ---
Discharge Instructions CONDITION Patient Condition: Stable HOME CARE INSTRUCTIONS: Diet Instructions: Low Fat /Cholesterol ACTIVITY: Activity Restrictions: Slowly Increase Activity Avoid heavy lifting Do not operate Machinery Do not operate Power Tool FOLLOW UP/APPOINTMENTS Follow-up Plan Please take your medications as prescribed. Please follow-up with her regular doctor in the clinic in the next 1 week. KATLIN MENDOZA Jan 12, 2017 14:31
--- NOTE | 2017-01-12 14:49 | PN ---
Date/Time of Note Date/Time of Note DATE: 01/12/17 TIME: 14:44 Assessment/Plan VTE Prophylaxis VTE Prophylaxis Intervention: other (Eliquis) Lines/Catheters IV Catheter Type (from Nrsg): Saline Lock Assessment/Plan Chief Complaint/Hosp Course S: No acute events overnight. Patient received 1 unit PRBC transfusion yesterday. Still complaining of abdominal and left lower extremity pain complaints. O: VS (see below) PE: Lying in bed, no acute distress Pupils equal round reactive light extra ocular muscles are intact Supple resp nonlabored S1, S2 heard no gross abd distension no UE edema Assessment/Plan: 31 yo F with ESRD on HD, recent admission for MSSA CLABSI/ tunnel infection, found to have large LLE DVT at that time readmitted for worsening LLE pain. Imaging with worsening of clot despite anticoagulation, now status post peritoneal catheter dialysis placement. 1. LLE DVT - also superficial thrombophlebitis: Was on heparin drip earlier, no signs of bleeding. -Continue Eliquis dose 10 mg BID, per discussion with vascular surgery team will need this lifelong now at this dose -Hemoglobin improved since yesterday, continue to monitor 2. ESRD: nephrology on cs for HD-->PD CATHETER PLACED 11.30 -patient has been getting gentle peritoneal dialysis since placement of this catheter. -Continue dialysis per renal recommendations -per discussion with renal team today, will continue gentle peritoneal dialysis for another 2 weeks. This is because the peritoneal dialysis catheter needs time to heal. In addition to that, renal team will discuss again with vascular surgery team about putting another Aris catheter, this time in the right groin, so that in the meantime patient can get another 2-3 weeks of regular hemodialysis until full healing and readiness of the peritoneal dialysis catheter. -We will also get case management order to set up training for patient to use home peritoneal catheter dialysis either from home health nurse or from outpatient dialysis center. 3. pain intolerance: cont current pain regimen, may need to reach out to her outpatient pain medicine specialist, will also add baclofen today. Problems: Exam/Review of Systems Vital Signs Vitals Vital Signs Date Time Temp Pulse Resp B/P Pulse Ox O2 Delivery O2 Flow Rate FiO2 01/12/17 13:47 97.5 65 18 126/79 99 01/11/17 12:55 Room Air Intake and Output 01/11/17 01/11/1701/12/17 15:00 23:00 07:00 Intake Total 1070 ml Output Total 0 ml Balance 1070 ml Results Result Diagram: 01/12/17 0740 01/12/17 0527 Results 24 hrs Laboratory Tests Test 01/12/17 05:27 01/12/17 07:40 Sodium Level 137 Potassium Level 5.0 Chloride Level 100 Carbon Dioxide Level 21 Anion Gap 21 H Blood Urea Nitrogen 90 H Creatinine 12.92 H Glucose Level 109 Calcium Level 9.1 White Blood Count 6.0 Red Blood Count 2.62 L Hemoglobin 7.8 L Hematocrit 24.2 L Mean Corpuscular Volume 92.4 Mean Corpuscular Hemoglobin 29.8 Mean Corpuscular Hemoglobin Concent 32.2 Red Cell Distribution Width 15.9 H Platelet Count 184 Mean Platelet Volume 10.8 H Neutrophils % 52.3 Lymphocytes % 20.8 Monocytes % 11.4 H Eosinophils % 14.7 H Basophils % 0.5 Nucleated Red Blood Cells % 0.0 Neutrophils # 3.1 Lymphocytes # 1.2 Monocytes # 0.7 Eosinophils # 0.9 H Basophils # 0.0 Nucleated Red Blood Cells # 0.0 Medications Medications Current Medications Ondansetron HCl (Zofran Inj) 4 mg Q6H PRN IV NAUSEA AND/OR VOMITING; Start at 23:00 Acetaminophen (Tylenol Tab) 650 mg Q6H PRN PO PAIN LEVEL 1-3 OR FEVER; Start 01/02/17 at 23:00 Docusate Sodium (Colace) 100 mg Q12H PRN PO CONSTIPATION; Start 01/02/17 at 23 :00 Bisacodyl (Dulcolax) 5 mg DAILY PRN PO CONSTIPATION; Start 01/02/17 at 23:00 Aspirin (Aspirin) 81 mg DAILY PO Last administered on 01/12/17 08:58; Admin Dose 81 MG; Start 01/03/17 at 09:00 Carvedilol (Coreg) 12.5 mg BID PO Last administered on 01/12/17 09:00; Admin Dose 12.5 MG; Start 01/03/17 at 09:00 Clonidine (Catapres) 0.2 mg BID PO Last administered on 01/12/17 08:59; Admin Dose 0.2 MG; Start 01/03/17 at 09:00 Folic Acid (Folic Acid) 1 mg DAILY PO Last administered on 01/12/17 09:01; Admin Dose 1 MG; Start 01/03/17 at 09:00 Furosemide (Lasix) 20 mg DAILY PO Last administered on 01/12/17 09:02; Admin Dose 20 MG; Start 01/03/17 at 09:00 Hydralazine HCl (Apresoline) 50 mg Q12 PRN PO FOR SBP ABOVE 170 Last administered on 01/09/17 17:26; Admin Dose 50 MG; Start 01/02/17 at 23:00 Labetalol HCl (Normodyne) 100 mg BID PO ; Start 01/03/17 at 09:00; Status Future Hold Multivit/Ca Carb/ B Cmplx/FA/Prenat (Sommer-Samantha) 1 tab DAILY PO Last administered on 01/12/17 09:00; Admin Dose 1 TAB; Start 01/03/17 at 09:00 Nifedipine (Procardia Xl) 60 mg DAILY PO Last administered on 01/12/17 09:00; Admin Dose 60 MG; Start 01/03/17 at 09:00 Topiramate (Topamax Sprinkle) 25 mg BID PO Last administered on 01/12/17 09:01 ; Admin Dose 25 MG; Start 01/03/17 at 09:00 Apixaban (Eliquis) 5 mg BID PO Last administered on 01/03/17 21:58; Admin Dose 5 MG; Start 01/03/17 at 21:00; Status Future Hold Morphine Sulfate (morphine) 4 mg Q4H PRN IV SEVERE PAIN LEVEL 7-10 Last administered on 01/12/17 12:59; Admin Dose 4 MG; Start 01/06/17 at 03:30 Nifedipine (Procardia Xl) 30 mg HS PO Last administered on 01/11/17 21:13; Admin Dose 30 MG; Start 01/08/17 at 21:00 Diphenhydramine HCl (Benadryl) 25 mg Q6 PRN IV ITCHING Last administered on 08:55; Admin Dose 25 MG; Start 01/08/17 at 18:00 Apixaban (Eliquis) 10 mg BID PO Last administered on 01/12/17 09:02; Admin Dose 10 MG; Start 01/11/17 at 10:00 Baclofen (Lioresal) 10 mg TID PO ; Start 01/12/17 at 21:00 KATLIN MENDOZA Jan 12, 2017 14:49
--- NOTE | 2017-01-12 17:12 | CONS ---
Date/Time of Note Date/Time of Note DATE: 01/12/17 TIME: 17:10 Assessment/Plan Assessment/Plan Chief Complaint/Hosp Course 1. Acute deep venous thrombosis of the left lower extremity. 2. EDEMA LEGS better 3. End-stage renal disease. 4. Anemia. 5. Hypertension. 6. Vasculopathy. 7 uremia w prurites on hd and pd 8 s/ppd cath placement plan pd cath care and gentle pd w 500 cc2.5 % dex out pt PD trainiG at [facility] pd clinic continue hd for now benadryl PRN PD FLUSH Problems: Consultation Date/Type/Reason Admit Date/Time Jan 05, 2017 at 14:32 Type of Consultation: RENAL Referring Provider: JULISSA NI MD 24 HR Interval Summary Constitutional: no complaints, other (PT WILL NEED HEMODIALYSIS CATH FOR NOW POSSIBLY 3 TO 4 WKS BEFORE WE CAN USE PD CATH FULLY) Exam/Review of Systems Vital Signs Vitals Vital Signs Date Time Temp Pulse Resp B/P Pulse Ox O2 Delivery O2 Flow Rate FiO2 01/12/17 13:47 97.5 65 18 126/79 99 01/11/17 12:55 Room Air Intake and Output 01/11/17 01/11/17 01/12/17 15:00 23:00 07:00 Intake Total 1070 ml Output Total 0 ml Balance 1070 ml Exam Neck: supple Respiratory: clear to auscultation Cardiovascular: regular rate and rhythm Gastrointestinal: bowel sounds (+), soft Musculoskeletal: nl extremities to inspection Extremities: edema (++), normal pulses Results Result Diagram: 01/12/17 0740 01/12/17 0527 Results 24 hrs Laboratory Tests Test 01/12/17 05:27 01/12/17 07:40 Sodium Level 137 Potassium Level 5.0 Chloride Level 100 Carbon Dioxide Level 21 Anion Gap 21 H Blood Urea Nitrogen 90 H Creatinine 12.92 H Glucose Level 109 Calcium Level 9.1 White Blood Count 6.0 Red Blood Count 2.62 L Hemoglobin 7.8 L Hematocrit 24.2 L Mean Corpuscular Volume 92.4 Mean Corpuscular Hemoglobin 29.8 Mean Corpuscular Hemoglobin Concent 32.2 Red Cell Distribution Width 15.9 H Platelet Count 184 Mean Platelet Volume 10.8 H Neutrophils % 52.3 Lymphocytes % 20.8 Monocytes % 11.4 H Eosinophils % 14.7 H Basophils % 0.5 Nucleated Red Blood Cells % 0.0 Neutrophils # 3.1 Lymphocytes # 1.2 Monocytes # 0.7 Eosinophils # 0.9 H Basophils # 0.0 Nucleated Red Blood Cells # 0.0 Medications Medications Current Medications Ondansetron HCl (Zofran Inj) 4 mg Q6H PRN IV NAUSEA AND/OR VOMITING; Start at 23:00 Acetaminophen (Tylenol Tab) 650 mg Q6H PRN PO PAIN LEVEL 1-3 OR FEVER; Start 01/02/17 at 23:00 Docusate Sodium (Colace) 100 mg Q12H PRN PO CONSTIPATION; Start 01/02/17 at 23 :00 Bisacodyl (Dulcolax) 5 mg DAILY PRN PO CONSTIPATION; Start 01/02/17 at 23:00 Aspirin (Aspirin) 81 mg DAILY PO Last administered on 01/12/17 08:58; Admin Dose 81 MG; Start 01/03/17 at 09:00 Carvedilol (Coreg) 12.5 mg BID PO Last administered on 01/12/17 09:00; Admin Dose 12.5 MG; Start 01/03/17 at 09:00 Clonidine (Catapres) 0.2 mg BID PO Last administered on 01/12/17 08:59; Admin Dose 0.2 MG; Start 01/03/17 at 09:00 Folic Acid (Folic Acid) 1 mg DAILY PO Last administered on 01/12/17 09:01; Admin Dose 1 MG; Start 01/03/17 at 09:00 Furosemide (Lasix) 20 mg DAILY PO Last administered on 01/12/17 09:02; Admin Dose 20 MG; Start 01/03/17 at 09:00 Hydralazine HCl (Apresoline) 50 mg Q12 PRN PO FOR SBP ABOVE 170 Last administered on 01/09/17 17:26; Admin Dose 50 MG; Start 01/02/17 at 23:00 Labetalol HCl (Normodyne) 100 mg BID PO ; Start 01/03/17 at 09:00; Status Future Hold Multivit/Ca Carb/ B Cmplx/FA/Prenat (Sommer-Samantha) 1 tab DAILY PO Last administered on 01/12/17 09:00; Admin Dose 1 TAB; Start 01/03/17 at 09:00 Nifedipine (Procardia Xl) 60 mg DAILY PO Last administered on 01/12/17 09:00; Admin Dose 60 MG; Start 01/03/17 at 09:00 Topiramate (Topamax Sprinkle) 25 mg BID PO Last administered on 01/12/17 09:01 ; Admin Dose 25 MG; Start 01/03/17 at 09:00 Apixaban (Eliquis) 5 mg BID PO Last administered on 01/03/17 21:58; Admin Dose 5 MG; Start 01/03/17 at 21:00; Status Future Hold Morphine Sulfate (morphine) 4 mg Q4H PRN IV SEVERE PAIN LEVEL 7-10 Last administered on 01/12/17 12:59; Admin Dose 4 MG; Start 01/06/17 at 03:30 Nifedipine (Procardia Xl) 30 mg HS PO Last administered on 01/11/17 21:13; Admin Dose 30 MG; Start 01/08/17 at 21:00 Diphenhydramine HCl (Benadryl) 25 mg Q6 PRN IV ITCHING Last administered on 15:17; Admin Dose 25 MG; Start 01/08/17 at 18:00 Apixaban (Eliquis) 10 mg BID PO Last administered on 01/12/17 09:02; Admin Dose 10 MG; Start 01/11/17 at 10:00 Baclofen (Lioresal) 10 mg TID PO ; Start 01/12/17 at 21:00 MIKE VEGA MD Jan 12, 2017 17:12
--- NOTE | 2017-01-12 18:37 | PN ---
Date/Time of Note Date/Time of Note DATE: 01/12/17 TIME: 18:37 Assessment/Plan Lines/Catheters IV Catheter Type (from [facility]): Peripheral IV Assessment/Plan Chief Complaint/Hosp Course -Endstage renal disease and central occlusion and caval thrombosis: It seems the patient had progressed in terms of her left lower extremity deep venous thrombosis. Patient did have deep venous thrombosis findings in the common femoral vein that was identified when we had done her angiogram about 2 weeks ago; therefore, I would not necessarily say that it is an acute finding. However, the patient does have superficial thrombophlebitis of her left greater saphenous vein and she does have calf tenderness with edema of 2+ to 3+ in that segment which seems to be her main discomfort -S/P left groin Perm catheter removal and iliac venoplasty -Start transition to [facility] and patient cleared to be discharged from vascular surgery standpoint -PT/OT and OOB FWB -Elevate LLE while at rest -Discussed findings, plan and management with the patient, she understands. -Thank you for allowing us to partake in the care of your patient. Please call with any questions. Problems: Exam/Review of Systems Vital Signs Vitals Vital Signs Date Time Temp Pulse Resp B/P Pulse Ox O2 Delivery O2 Flow Rate FiO2 01/14/17 14:00 90 01/14/17 13:15 97.7 18 174/93 96 01/11/17 12:55 Room Air Intake and Output 01/13/17 01/13/17 01/14/17 14:59 22:59 06:59 Intake Total 118 ml 706 ml Balance 118 ml 706 ml Exam Free Text/Dictation GENERAL: She is alert and oriented x3. PULMONARY: Clear to auscultation bilaterally. CARDIOVASCULAR: S1, S2 present. ABDOMEN: Soft, nontender, nondistended. Bowel sounds positive. Truncal obesity. PD catheter intact RIGHT LOWER EXTREMITY: Palpable femoral pulse, faint pedal pulse. Motor, sensory intact. Cap refill 2 to 3 seconds. LEFT LOWER EXTREMITY: Palpable femoral pulse. Groin incision with marco intact and dry. Faint pedal pulse. Motor and sensory intact. Edema of the lower leg 2+ and tenderness resolved as her thrombophlebitis has resolved. Perm catheter removal site clean Results Result Diagram: 01/14/17 0439 01/14/17 1325 JULISSA NI MD Jan 12, 2017 18:37
[2017-01-12 20:00] VITALS: BP_SYST 116; BP_SYST 121; BP_DIAS 56; BP_DIAS 73; RESP 20
[2017-01-12] MEDS: BACLOFEN 10 MG TAB PO SCH (20:40)
[2017-01-12] MEDS: NIFEdipine (XL) 30 MG TAB PO SCH (20:41)
[2017-01-12 20:45] VITALS: BP 148/78; PULSE 68
[2017-01-12] MEDS: DIPHENHYDRAMINE 50 MG INJ IV SCH (21:40)
[2017-01-13 02:00] VITALS: BP 129/79; RESP 20
[2017-01-13] MEDS: DIPHENHYDRAMINE 50 MG INJ IV PRN ×4 (02:19→23:03)
[2017-01-13] MEDS: morphine 4 MG/ML VIAL IV PRN ×5 (02:37→23:04)
[2017-01-13 06:27] LABS: BASOPHILS % 0.5 % (0.0-2.0); EOSINOPHILS # 1.1 10^3/ul (0.0-0.5); EOSINOPHILS % 17.3 % (0.0-7.0); HEMATOCRIT 25.3 % (37.0-47.0); HEMOGLOBIN 8.3 g/dl (12.0-16.0); LYMPHOCYTES # 1.4 10^3/ul (0.8-2.9); MEAN CORPUSCULAR HEMOGLOBIN 30.4 pg (29.0-33.0); MEAN CORPUSCULAR HGB CONC 32.8 g/dl (32.0-37.0); MEAN CORPUSCULAR VOLUME 92.7 fl (82.0-101.0); MEAN PLATELET VOLUME 10.8 fl (7.4-10.4); MONOCYTE # 0.7 10^3/ul (0.3-0.9); MONOCYTES % 11.1 % (0.0-11.0); NEUTROPHIL # 3.1 10^3/ul (1.6-7.5); NEUTROPHILS % 48.6 % (39.0-77.0); PLATELET COUNT 174 10^3/UL (140-415); RED BLOOD COUNT 2.73 10^6/ul (4.20-5.40); RED CELL DISTRIBUTION WIDTH 15.8 % (11.5-14.5); WHITE BLOOD COUNT 6.3 10^3/ul (4.8-10.8)
[2017-01-13 07:22] LABS: CALCIUM 9.2 mg/dl (8.4-10.2); POTASSIUM 5.2 mmol/L (3.5-5.1)
[2017-01-13 07:29] LABS: CREATININE 14.01 mg/dl (0.44-1.00)
[2017-01-13 07:56] VITALS: BP_SYST 103; BP_SYST 137; BP_DIAS 66; BP_DIAS 86; RESP 14
[2017-01-13] MEDS ORDERED: NA POLYST SULFON 15 GM/60 ML BTL PO ONE (09:00)
[2017-01-13] MEDS: SEVELAMER 800 MG TAB PO SCH ×3 (09:30→17:33)
[2017-01-13] MEDS: BACLOFEN 10 MG TAB PO SCH ×4 (09:30→23:00)
[2017-01-13] MEDS: FUROSEMIDE 20 MG TAB PO SCH (09:30)
[2017-01-13] MEDS: FOLIC ACID 1 MG TAB PO SCH (09:30)
[2017-01-13] MEDS: ASPIRIN 81 MG TAB PO SCH (09:30)
[2017-01-13] MEDS: NIFEdipine (XL) 60 MG TAB PO SCH (09:30)
[2017-01-13] MEDS: MULTIVIT/CA CARB/B CMPLX/FA TAB PO SCH (09:30)
[2017-01-13] MEDS: TOPIRAMATE SPRINKLE 25 MG CAP PO SCH ×3 (09:30→23:01)
[2017-01-13] MEDS: APIXABAN 5 MG TABLET PO SCH (10:00)
[2017-01-13] MEDS ORDERED: HEPARIN 25000 UNITS/250 ML 250 ML IV SCH (10:30)
[2017-01-13] MEDS ORDERED: HEPARIN 1000 UNITS/ML 10 ML INJ IV PRN ×4 (10:30→17:30)
[2017-01-13] MEDS: DIPHENHYDRAMINE 50 MG INJ IV SCH (11:03)
--- NOTE | 2017-01-13 11:05 | CONS ---
Date/Time of Note Date/Time of Note DATE: 01/13/17 TIME: 11:03 Assessment/Plan Assessment/Plan Chief Complaint/Hosp Course IMPRESSION: 1. Preoperative evaluation prior to placement of a peritoneal dialysis catheter.-negative trop x 2/no change on serial ecg's/Nl EF by most recent echo during last admission with no contraindicated valve lesions. Thus ok to proceed to OR for placement of PD catheter at moderate CV risk without further noninvasive evaluation. Now post-op s/p PD catheter placement and removal of femoral catheter 2. Hypertension-Now well controlled 3. Left lower extremity deep venous thrombosis. 4. Anemia-s/p transfusion 5. Prior failed chest wall catheters. 6. s/p PD catheter and illiac venoplasty Recc: -Continue coreg/asa/procardia with well controlled BP at this time -PLan for placement of new HD catheter until ready for PD -Follow Hgb closely Problems: Consultation Date/Type/Reason Admit Date/Time Jan 05, 2017 at 14:32 Initial Consult Date 01/04/2017 Type of Consultation: cardiology Reason for Consultation pre-op/HTN Referring Provider: JULISSA NI MD Exam/Review of Systems Vital Signs Vitals Vital Signs Date Time Temp Pulse Resp B/P Pulse Ox O2 Delivery O2 Flow Rate FiO2 01/13/17 07:56 97.9 71 14 137/86 96 01/11/17 12:55 Room Air Intake and Output 01/12/17 01/12/17 01/13/17 14:59 22:59 06:59 Intake Total 1320 ml Output Total 3 ml Balance 1317 ml Exam Review of Systems: CONSTITUTIONAL: No fevers, chills. PULMONARY: No sob CARDIOVASCULAR: No chest pain/palpitations GASTROINTESTINAL: No nausea/vomiting. GENITOURINARY: No hematuria/dysuria. MUSCULOSKELETAL: mild pain in leg PSYCHIATRIC: The patient denies depression. NEUROLOGIC: No weakness Constitutional: alert, oriented Psych: no complaints Head: normocephalic ENMT: mucosa pink and moist Neck: jvd (9 cm water), supple Respiratory: diminished breath sounds (at bases/B) Cardiovascular: regular rate and rhythm Gastrointestinal: non-tender, soft Musculoskeletal: muscle tone (normal) Extremities: edema (L>R) Neurological: other (No focal deficits) Results Result Diagram: 01/13/1753 01/13/17 05 Results 24 hrs Laboratory Tests Test 01/13/17 05:53 White Blood Count 6.3 Red Blood Count 2.73 L Hemoglobin 8.3 L Hematocrit 25.3 L Mean Corpuscular Volume 92.7 Mean Corpuscular Hemoglobin 30.4 Mean Corpuscular Hemoglobin Concent 32.8 Red Cell Distribution Width 15.8 H Platelet Count 174 Mean Platelet Volume 10.8 H Neutrophils % 48.6 Lymphocytes % 22.0 Monocytes % 11.1 H Eosinophils % 17.3 H Basophils % 0.5 Nucleated Red Blood Cells % 0.0 Neutrophils # 3.1 Lymphocytes # 1.4 Monocytes # 0.7 Eosinophils # 1.1 H Basophils # 0.0 Nucleated Red Blood Cells # 0.0 Sodium Level 138 Potassium Level 5.2 H Chloride Level 100 Carbon Dioxide Level 22 Anion Gap 21 H Blood Urea Nitrogen 101 H Creatinine 14.01 H Glucose Level 108 Calcium Level 9.2 Medications Medications Current Medications Ondansetron HCl (Zofran Inj) 4 mg Q6H PRN IV NAUSEA AND/OR VOMITING; Start at 23:00 Acetaminophen (Tylenol Tab) 650 mg Q6H PRN PO PAIN LEVEL 1-3 OR FEVER; Start 01/02/17 at 23:00 Docusate Sodium (Colace) 100 mg Q12H PRN PO CONSTIPATION; Start 01/02/17 at 23 :00 Bisacodyl (Dulcolax) 5 mg DAILY PRN PO CONSTIPATION; Start 01/02/17 at 23:00 Aspirin (Aspirin) 81 mg DAILY PO Last administered on 01/13/17 09:30; Admin Dose 81 MG; Start 01/03/17 at 09:00 Carvedilol (Coreg) 12.5 mg BID PO Last administered on 01/13/17 09:30; Admin Dose 12.5 MG; Start 01/03/17 at 09:00 Clonidine (Catapres) 0.2 mg BID PO Last administered on 01/13/17 09:30; Admin Dose 0.2 MG; Start 01/03/17 at 09:00 Folic Acid (Folic Acid) 1 mg DAILY PO Last administered on 01/13/17 09:30; Admin Dose 1 MG; Start 01/03/17 at 09:00 Furosemide (Lasix) 20 mg DAILY PO Last administered on 01/13/17 09:30; Admin Dose 20 MG; Start 01/03/17 at 09:00 Hydralazine HCl (Apresoline) 50 mg Q12 PRN PO FOR SBP ABOVE 170 Last administered on 01/09/17 17:26; Admin Dose 50 MG; Start 01/02/17 at 23:00 Labetalol HCl (Normodyne) 100 mg BID PO ; Start 01/03/17 at 09:00; Status Future Hold Multivit/Ca Carb/ B Cmplx/FA/Prenat (Sommer-Samantha) 1 tab DAILY PO Last administered on 01/13/17 09:30; Admin Dose 1 TAB; Start 01/03/17 at 09:00 Nifedipine (Procardia Xl) 60 mg DAILY PO Last administered on 01/13/17 09:30; Admin Dose 60 MG; Start 01/03/17 at 09:00 Topiramate (Topamax Sprinkle) 25 mg BID PO Last administered on 01/13/17 09:30 ; Admin Dose 25 MG; Start 01/03/17 at 09:00 Apixaban (Eliquis) 5 mg BID PO Last administered on 01/03/17 21:58; Admin Dose 5 MG; Start 01/03/17 at 21:00; Status Future Hold Morphine Sulfate (morphine) 4 mg Q4H PRN IV SEVERE PAIN LEVEL 7-10 Last administered on 01/13/17 07:00; Admin Dose 4 MG; Start 01/06/17 at 03:30 Nifedipine (Procardia Xl) 30 mg HS PO Last administered on 01/12/17 20:41; Admin Dose 30 MG; Start 01/08/17 at 21:00 Diphenhydramine HCl (Benadryl) 25 mg Q6 PRN IV ITCHING Last administered on 09:13; Admin Dose 25 MG; Start 01/08/17 at 18:00 Apixaban (Eliquis) 10 mg BID PO Last administered on 01/12/17 20:40; Admin Dose 10 MG; Start 01/11/17 at 10:00; Status Future Hold Baclofen (Lioresal) 10 mg TID PO Last administered on 01/13/17 09:30; Admin Dose 10 MG; Start 01/12/17 at 21:00 Miscellaneous Information (* Miscellaneous Pharmacy Order) DC previous hepa... ONCE ONCE XX ; Start 01/13/17 at 10:30; Stop 01/13/17 at 10:31; Status UNV Heparin Sodium (Porcine) (Heparin (1000 Units/ml)) 5,300 unit ONCE ONCE IV ; Start 01/13/17 at 10:30; Stop 01/13/17 at 10:31; Status UNV ETHAN MCKINLEY Jan 13, 2017 11:05
--- NOTE | 2017-01-13 11:07 | PN ---
Date/Time of Note Date/Time of Note DATE: 01/13/17 TIME: 11:04 Assessment/Plan VTE Prophylaxis VTE Prophylaxis Intervention: other (Eliquis) Lines/Catheters IV Catheter Type (from Nrsg): Peripheral IV Assessment/Plan Chief Complaint/Hosp Course S: No acute events overnight. Patient states some slight improvement in pain symptoms with the baclofen. O: VS (see below) PE: Lying in bed, no acute distress Pupils equal round reactive light extra ocular muscles are intact Supple resp nonlabored S1, S2 heard no gross abd distension no UE edema Assessment/Plan: 31 yo F with ESRD on HD, recent admission for MSSA CLABSI/ tunnel infection, found to have large LLE DVT at that time readmitted for worsening LLE pain. Imaging with worsening of clot despite anticoagulation, now status post peritoneal catheter dialysis placement. 1. LLE DVT - also superficial thrombophlebitis: Was on heparin drip earlier, no signs of bleeding. -Patient has been on Eliquis dose 10 mg BID, however we will transition today back to heparin drip per vascular surgery recommendations as they will likely place another Aris catheter in the right groin for patient to get another 2-3 weeks of dialysis until her peritoneal dialysis catheter fully heals. -continue to monitor hemoglobin 2. ESRD: nephrology on cs for HD-->PD CATHETER PLACED . - patient has been getting gentle peritoneal dialysis since placement of this catheter. -Continue dialysis per renal recommendations -per discussion with renal team yesterday, will continue gentle peritoneal dialysis for another 2 weeks. This is because the peritoneal dialysis catheter needs time to heal. In addition to that, as mentioned in #1 a aris catheter will be placed in the next 1-2 days likely in the right groin, so that in the meantime patient can get another 2-3 weeks of regular hemodialysis until full healing and readiness of the peritoneal dialysis catheter. -Aloe up with case management order to set up training for patient to use home peritoneal catheter dialysis either from home health nurse or from outpatient dialysis center. 3. pain intolerance: cont current pain regimen, may need to reach out to her outpatient pain medicine specialist, baclofen 3 times daily as well. Problems: Exam/Review of Systems Vital Signs Vitals Vital Signs Date Time Temp Pulse Resp B/P Pulse Ox O2 Delivery O2 Flow Rate FiO2 01/13/17 07:56 97.9 71 14 137/86 96 01/11/17 12:55 Room Air Intake and Output 01/12/17 01/12/17 01/13/17 15:00 23:00 07:00 Intake Total 1320 ml Output Total 3 ml Balance 1317 ml Results Result Diagram: 01/13/17 0553 01/13/17 0553 Results 24 hrs Laboratory Tests Test 01/13/17 05:53 White Blood Count 6.3 Red Blood Count 2.73 L Hemoglobin 8.3 L Hematocrit 25.3 L Mean Corpuscular Volume 92.7 Mean Corpuscular Hemoglobin 30.4 Mean Corpuscular Hemoglobin Concent 32.8 Red Cell Distribution Width 15.8 H Platelet Count 174 Mean Platelet Volume 10.8 H Neutrophils % 48.6 Lymphocytes % 22.0 Monocytes % 11.1 H Eosinophils % 17.3 H Basophils % 0.5 Nucleated Red Blood Cells % 0.0 Neutrophils # 3.1 Lymphocytes # 1.4 Monocytes # 0.7 Eosinophils # 1.1 H Basophils # 0.0 Nucleated Red Blood Cells # 0.0 Sodium Level 138 Potassium Level 5.2 H Chloride Level 100 Carbon Dioxide Level 22 Anion Gap 21 H Blood Urea Nitrogen 101 H Creatinine 14.01 H Glucose Level 108 Calcium Level 9.2 Medications Medications Current Medications Ondansetron HCl (Zofran Inj) 4 mg Q6H PRN IV NAUSEA AND/OR VOMITING; Start at 23:00 Acetaminophen (Tylenol Tab) 650 mg Q6H PRN PO PAIN LEVEL 1-3 OR FEVER; Start 01/02/17 at 23:00 Docusate Sodium (Colace) 100 mg Q12H PRN PO CONSTIPATION; Start 01/02/17 at 23 :00 Bisacodyl (Dulcolax) 5 mg DAILY PRN PO CONSTIPATION; Start 01/02/17 at 23:00 Aspirin (Aspirin) 81 mg DAILY PO Last administered on 01/13/17 09:30; Admin Dose 81 MG; Start 01/03/17 at 09:00 Carvedilol (Coreg) 12.5 mg BID PO Last administered on 01/13/17 09:30; Admin Dose 12.5 MG; Start 01/03/17 at 09:00 Clonidine (Catapres) 0.2 mg BID PO Last administered on 01/13/17 09:30; Admin Dose 0.2 MG; Start 01/03/17 at 09:00 Folic Acid (Folic Acid) 1 mg DAILY PO Last administered on 01/13/17 09:30; Admin Dose 1 MG; Start 01/03/17 at 09:00 Furosemide (Lasix) 20 mg DAILY PO Last administered on 01/13/17 09:30; Admin Dose 20 MG; Start 01/03/17 at 09:00 Hydralazine HCl (Apresoline) 50 mg Q12 PRN PO FOR SBP ABOVE 170 Last administered on 01/09/17 17:26; Admin Dose 50 MG; Start 01/02/17 at 23:00 Labetalol HCl (Normodyne) 100 mg BID PO ; Start 01/03/17 at 09:00; Status Future Hold Multivit/Ca Carb/ B Cmplx/FA/Prenat (Sommer-Samantha) 1 tab DAILY PO Last administered on 01/13/17 09:30; Admin Dose 1 TAB; Start 01/03/17 at 09:00 Nifedipine (Procardia Xl) 60 mg DAILY PO Last administered on 01/13/17 09:30; Admin Dose 60 MG; Start 01/03/17 at 09:00 Topiramate (Topamax Sprinkle) 25 mg BID PO Last administered on 01/13/17 09:30 ; Admin Dose 25 MG; Start 01/03/17 at 09:00 Apixaban (Eliquis) 5 mg BID PO Last administered on 01/03/17 21:58; Admin Dose 5 MG; Start 01/03/17 at 21:00; Status Future Hold Morphine Sulfate (morphine) 4 mg Q4H PRN IV SEVERE PAIN LEVEL 7-10 Last administered on 01/13/17 07:00; Admin Dose 4 MG; Start 01/06/17 at 03:30 Nifedipine (Procardia Xl) 30 mg HS PO Last administered on 01/12/17 20:41; Admin Dose 30 MG; Start 01/08/17 at 21:00 Diphenhydramine HCl (Benadryl) 25 mg Q6 PRN IV ITCHING Last administered on 09:13; Admin Dose 25 MG; Start 01/08/17 at 18:00 Apixaban (Eliquis) 10 mg BID PO Last administered on 01/12/17 20:40; Admin Dose 10 MG; Start 01/11/17 at 10:00; Status Future Hold Baclofen (Lioresal) 10 mg TID PO Last administered on 01/13/17 09:30; Admin Dose 10 MG; Start 01/12/17 at 21:00 Miscellaneous Information (* Miscellaneous Pharmacy Order) DC previous hepa... ONCE ONCE XX ; Start 01/13/17 at 10:30; Stop 01/13/17 at 10:31; Status UNV Heparin Sodium (Porcine) (Heparin (1000 Units/ml)) 5,300 unit ONCE ONCE IV ; Start 01/13/17 at 10:30; Stop 01/13/17 at 10:31; Status UNV KATLIN MENDOZA Jan 13, 2017 11:07
[2017-01-13 11:15] VITALS: BP 150/72; PULSE 72
[2017-01-13 12:16] LABS: BASOPHILS % 0.5 % (0.0-2.0); HEMATOCRIT 24.5 % (37.0-47.0); HEMOGLOBIN 7.9 g/dl (12.0-16.0); LYMPHOCYTES # 1.2 10^3/ul (0.8-2.9); MEAN CORPUSCULAR HGB CONC 32.2 g/dl (32.0-37.0); MEAN CORPUSCULAR VOLUME 93.2 fl (82.0-101.0); MEAN PLATELET VOLUME 10.5 fl (7.4-10.4); MONOCYTE # 0.7 10^3/ul (0.3-0.9); MONOCYTES % 11.2 % (0.0-11.0); NEUTROPHIL # 3.4 10^3/ul (1.6-7.5); NEUTROPHILS % 53.2 % (39.0-77.0); PLATELET COUNT 181 10^3/UL (140-415); RED BLOOD COUNT 2.63 10^6/ul (4.20-5.40); RED CELL DISTRIBUTION WIDTH 15.8 % (11.5-14.5); WHITE BLOOD COUNT 6.3 10^3/ul (4.8-10.8)
[2017-01-13 12:21] LABS: EOSINOPHILS % 15.8 % (0.0-7.0)
[2017-01-13 12:35] LABS: INR 1.19; PROTIME 15.3 Sec (11.9-14.9); PT RATIO 1.2
[2017-01-13 12:36] LABS: PARTIAL THROMBOPLASTIN TIME 43.3 Sec (25.0-35.0)
[2017-01-13] MEDS ORDERED: HEPARIN 1000 UNITS/ML 10 ML INJ IV ONE (13:14)
[2017-01-13 13:54] VITALS: BP 123/75; RESP 16
--- NOTE | 2017-01-13 15:50 | CONS ---
Date/Time of Note Date/Time of Note DATE: 01/13/17 TIME: 15:47 Assessment/Plan Assessment/Plan Chief Complaint/Hosp Course 1. ESRD. 2. Acute deep venous thrombosis of the left lower extremity on heparin drip 3. Chronic pain. 4. Anemia. 5. Hypertension. 6. Vasculopathy. 7. uremia with pruritus. 8. EDEMA LEGS better 9. s/p pd cath placement Problems: Additional Assessment/Plan 1.HD cath placement right hip pending by dr Longroia 2. continue HD Consultation Date/Type/Reason Admit Date/Time Jan 05, 2017 at 14:32 Type of Consultation: cardiology Referring Provider: JULISSA NI MD Exam/Review of Systems Vital Signs Vitals Vital Signs Date Time Temp Pulse Resp B/P Pulse Ox O2 Delivery O2 Flow Rate FiO2 01/13/17 13:54 98.8 63 16 123/75 96 01/11/17 12:55 Room Air Intake and Output 01/12/17 01/12/17 01/13/17 14:59 22:59 06:59 Intake Total 1320 ml Output Total 3 ml Balance 1317 ml Results Result Diagram: 01/13/17 1143 01/13/17 0553 Results 24 hrs Laboratory Tests Test 01/13/17 05:53 01/13/17 11:43 White Blood Count 6.3 6.3 Red Blood Count 2.73 L 2.63 L Hemoglobin 8.3 L 7.9 L Hematocrit 25.3 L 24.5 L Mean Corpuscular Volume 92.7 93.2 Mean Corpuscular Hemoglobin 30.4 30.0 Mean Corpuscular Hemoglobin Concent 32.8 32.2 Red Cell Distribution Width 15.8 H 15.8 H Platelet Count 174 181 Mean Platelet Volume 10.8 H 10.5 H Neutrophils % 48.6 53.2 Lymphocytes % 22.0 19.0 Monocytes % 11.1 H 11.2 H Eosinophils % 17.3 H 15.8 H Basophils % 0.5 0.5 Nucleated Red Blood Cells % 0.0 0.0 Neutrophils # 3.1 3.4 Lymphocytes # 1.4 1.2 Monocytes # 0.7 0.7 Eosinophils # 1.1 H 1.0 H Basophils # 0.0 0.0 Nucleated Red Blood Cells # 0.0 0.0 Sodium Level 138 Potassium Level 5.2 H Chloride Level 100 Carbon Dioxide Level 22 Anion Gap 21 H Blood Urea Nitrogen 101 H Creatinine 14.01 H Glucose Level 108 Calcium Level 9.2 Prothrombin Time 15.3 H Prothrombin Time Ratio 1.2 INR International Normalized Ratio 1.19 Activated Partial Thromboplast Time 43.3 H Medications Medications Current Medications Ondansetron HCl (Zofran Inj) 4 mg Q6H PRN IV NAUSEA AND/OR VOMITING; Start at 23:00 Acetaminophen (Tylenol Tab) 650 mg Q6H PRN PO PAIN LEVEL 1-3 OR FEVER; Start 01/02/17 at 23:00 Docusate Sodium (Colace) 100 mg Q12H PRN PO CONSTIPATION; Start 01/02/17 at 23 :00 Bisacodyl (Dulcolax) 5 mg DAILY PRN PO CONSTIPATION; Start 01/02/17 at 23:00 Aspirin (Aspirin) 81 mg DAILY PO Last administered on 01/13/17 09:30; Admin Dose 81 MG; Start 01/03/17 at 09:00 Carvedilol (Coreg) 12.5 mg BID PO Last administered on 01/13/17 09:30; Admin Dose 12.5 MG; Start 01/03/17 at 09:00 Clonidine (Catapres) 0.2 mg BID PO Last administered on 01/13/17 09:30; Admin Dose 0.2 MG; Start 01/03/17 at 09:00 Folic Acid (Folic Acid) 1 mg DAILY PO Last administered on 01/13/17 09:30; Admin Dose 1 MG; Start 01/03/17 at 09:00 Furosemide (Lasix) 20 mg DAILY PO Last administered on 01/13/17 09:30; Admin Dose 20 MG; Start 01/03/17 at 09:00 Hydralazine HCl (Apresoline) 50 mg Q12 PRN PO FOR SBP ABOVE 170 Last administered on 01/09/17 17:26; Admin Dose 50 MG; Start 01/02/17 at 23:00 Labetalol HCl (Normodyne) 100 mg BID PO ; Start 01/03/17 at 09:00; Status Future Hold Multivit/Ca Carb/ B Cmplx/FA/Prenat (Sommer-Samantha) 1 tab DAILY PO Last administered on 01/13/17 09:30; Admin Dose 1 TAB; Start 01/03/17 at 09:00 Nifedipine (Procardia Xl) 60 mg DAILY PO Last administered on 01/13/17 09:30; Admin Dose 60 MG; Start 01/03/17 at 09:00 Topiramate (Topamax Sprinkle) 25 mg BID PO Last administered on 01/13/17 09:30 ; Admin Dose 25 MG; Start 01/03/17 at 09:00 Apixaban (Eliquis) 5 mg BID PO Last administered on 01/03/17 21:58; Admin Dose 5 MG; Start 01/03/17 at 21:00; Status Future Hold Morphine Sulfate (morphine) 4 mg Q4H PRN IV SEVERE PAIN LEVEL 7-10 Last administered on 01/13/17 12:20; Admin Dose 4 MG; Start 01/06/17 at 03:30 Nifedipine (Procardia Xl) 30 mg HS PO Last administered on 01/12/17 20:41; Admin Dose 30 MG; Start 01/08/17 at 21:00 Diphenhydramine HCl (Benadryl) 25 mg Q6 PRN IV ITCHING Last administered on 09:13; Admin Dose 25 MG; Start 01/08/17 at 18:00 Apixaban (Eliquis) 10 mg BID PO Last administered on 01/12/17 20:40; Admin Dose 10 MG; Start 01/11/17 at 10:00; Status Future Hold Baclofen (Lioresal) 10 mg TID PO Last administered on 01/13/17 13:13; Admin Dose 10 MG; Start 01/12/17 at 21:00 MANI PRECIADO Jan 13, 2017 15:50
[2017-01-13] MEDS ORDERED: HEPARIN 1000 UNITS/ML 10 ML INJ IV SCH (17:40)
[2017-01-13] MEDS: HEPARIN 25000 UNITS/250 ML 250 ML IV SCH (17:48)
[2017-01-13 20:00] VITALS: BP 154/89; RESP 14
[2017-01-13] MEDS: NIFEdipine (XL) 30 MG TAB PO SCH ×2 (21:00→23:01)
[2017-01-13] MEDS: BISACODYL (EC) 5 MG TAB PO PRN (23:01)
[2017-01-13] MEDS: ONDANSETRON 4 MG INJ IV PRN (23:07)
--- NOTE | 2017-01-13 23:38 | PN ---
Date/Time of Note Date/Time of Note DATE: 01/13/17 TIME: 23:38 Assessment/Plan Lines/Catheters IV [facility]atheter Type ([facility] Saline Lock Assessment/Plan Chief Complaint/Hosp Course -Endstage renal disease and central occlusion and caval thrombosis: It seems the patient had progressed in terms of her left lower extremity deep venous thrombosis. Patient did have deep venous thrombosis findings in the common femoral vein that was identified when we had done her angiogram about 2 weeks ago; therefore, I would not necessarily say that it is an acute finding. However, the patient does have superficial thrombophlebitis of her left greater saphenous vein and she did have calf tenderness with edema of 2+ to 3+ and now improving. -S/P left groin Perm catheter removal and iliac venoplasty -LLE DVT:-it seems to be chronic in nature and she has some component of hypercoagulable state. Recommend to continue her anticoagulation -The patient cleared to be discharged from vascular surgery standpoint and can followup as outpt -Patient ate today and delayed her perm catheter placement. Further she was not stopped on her Eliquis and therefore i suggest to transition to Heparin gtt and will schedule her perm catheter in the coming day or so. Continue with close monitoring -PT/OT and OOB FWB -Elevate LLE while at rest -Discussed findings, plan and management with the patient, she understands. -Thank you for allowing us to partake in the care of your patient. Please call with any questions. Problems: Exam/Review of Systems Vital Signs Vitals Vital Signs Date Time Temp Pulse Resp B/P Pulse Ox O2 Delivery O2 Flow Rate FiO2 01/14/17 14:00 90 01/14/17 13:15 97.7 18 174/93 96 01/11/17 12:55 Room Air Intake and Output 01/13/17 01/13/17 01/14/17 14:59 22:59 06:59 Intake Total 118 ml 706 ml Balance 118 ml 706 ml Exam Free Text/Dictation GENERAL: Alert and oriented x3. PULMONARY: Clear to auscultation bilaterally. CARDIOVASCULAR: S1, S2 present. ABDOMEN: Soft, nontender, nondistended. Bowel sounds positive. Truncal obesity. PD catheter intact RIGHT LOWER EXTREMITY: Palpable femoral pulse, faint pedal pulse. Motor, sensory intact. Cap refill 2 to 3 seconds. LEFT LOWER EXTREMITY: Palpable femoral pulse. Groin incision with marco intact and dry. Faint pedal pulse. Motor and sensory intact. Edema of the lower leg 2+ and tenderness resolved as her thrombophlebitis has resolved. Perm catheter removal site clean Results Result Diagram: 01/14/17 0439 01/14/17 1325 JULISSA NI MD Jan 13, 2017 23:38
[2017-01-14] VITALS (32 sets, daily range): BP systolic 97–194; BP diastolic 24–125; PULSE 81–140; RESP 12–21
[2017-01-14] MEDS: morphine 4 MG/ML VIAL IV PRN (02:26)
[2017-01-14] MEDS: METOCLOPRAMIDE 10 MG INJ IV PRN ×3 (02:26→19:25)
[2017-01-14] MEDS ORDERED: VITAMIN A & D 5 GM OINT PACKET TOP ONE (04:53)
[2017-01-14 05:48] LABS: BASOPHILS % 0.4 % (0.0-2.0); EOSINOPHILS # 1.1 10^3/ul (0.0-0.5); EOSINOPHILS % 13.8 % (0.0-7.0); HEMATOCRIT 26.5 % (37.0-47.0); HEMOGLOBIN 8.5 g/dl (12.0-16.0); LYMPHOCYTES # 1.1 10^3/ul (0.8-2.9); LYMPHOCYTES % 13.4 % (15.0-51.0); MEAN CORPUSCULAR HEMOGLOBIN 29.7 pg (29.0-33.0); MEAN CORPUSCULAR HGB CONC 32.1 g/dl (32.0-37.0); MEAN CORPUSCULAR VOLUME 92.7 fl (82.0-101.0); MEAN PLATELET VOLUME 10.9 fl (7.4-10.4); MONOCYTE # 0.7 10^3/ul (0.3-0.9); NEUTROPHIL # 5.1 10^3/ul (1.6-7.5); NEUTROPHILS % 62.8 % (39.0-77.0); PLATELET COUNT 193 10^3/UL (140-415); RED BLOOD COUNT 2.86 10^6/ul (4.20-5.40); RED CELL DISTRIBUTION WIDTH 15.7 % (11.5-14.5)
[2017-01-14 06:11] LABS: CALCIUM 9.6 mg/dl (8.4-10.2)
[2017-01-14] MEDS: HEPARIN 1000 UNITS/ML 10 ML INJ IV PRN (06:32)
[2017-01-14 06:40] LABS: CREATININE 14.93 mg/dl (0.44-1.00); POTASSIUM 6.3 mmol/L (3.5-5.1)
[2017-01-14] MEDS ORDERED: NA POLYST SULFON 15 GM/60 ML BTL PO ONE ×2 (07:00→13:00)
[2017-01-14] MEDS: BISACODYL (EC) 5 MG TAB PO PRN (07:55)
[2017-01-14] MEDS: DOCUSATE SODIUM 100 MG CAP PO PRN (07:55)
[2017-01-14] MEDS: SEVELAMER 800 MG TAB PO SCH ×3 (07:55→16:42)
[2017-01-14] MEDS: ONDANSETRON 4 MG INJ IV PRN (08:00)
[2017-01-14] MEDS: MULTIVIT/CA CARB/B CMPLX/FA TAB PO SCH (09:46)
[2017-01-14] MEDS: NIFEdipine (XL) 60 MG TAB PO SCH (09:46)
[2017-01-14] MEDS: BACLOFEN 10 MG TAB PO SCH ×3 (09:46→22:44)
[2017-01-14] MEDS: ASPIRIN 81 MG TAB PO SCH (09:46)
[2017-01-14] MEDS: FOLIC ACID 1 MG TAB PO SCH (09:46)
[2017-01-14] MEDS: TOPIRAMATE SPRINKLE 25 MG CAP PO SCH ×2 (09:46→22:43)
[2017-01-14] MEDS: FUROSEMIDE 20 MG TAB PO SCH (09:47)
[2017-01-14] MEDS ORDERED: morphine 4 MG/ML VIAL IV PRN (11:53)
--- NOTE | 2017-01-14 11:56 | PN ---
Date/Time of Note Date/Time of Note DATE: 01/14/17 TIME: 11:53 Assessment/Plan VTE Prophylaxis VTE Prophylaxis Intervention: heparin Lines/Catheters IV Catheter Type (from Nrsg): Saline Lock Assessment/Plan Chief Complaint/Hosp Course S: Per nursing staff patient more sleepy today. Getting high doses of morphine and Benadryl. Awaiting possible right groin hemodialysis catheter Aris placement in 24 hours. Back on heparin drip since yesterday for her DVT. Still getting gentle peritoneal dialysis daily. O: VS (see below) PE: Lying in bed, no acute distress Pupils equal round reactive light extra ocular muscles are intact Supple resp nonlabored S1, S2 heard no gross abd distension no UE edema Assessment/Plan: 31 yo F with ESRD on HD, recent admission for MSSA CLABSI/ tunnel infection, found to have large LLE DVT at that time readmitted for worsening LLE pain. Imaging with worsening of clot despite anticoagulation, now status post peritoneal catheter dialysis placement. 1. LLE DVT - also superficial thrombophlebitis: Again back on heparin drip -Patient will need to be back on Eliquis dose 10 mg BID, per vascular surgery for life, after right groin aris catheter placed. I patient will need this right groin Aris catheter for another 2-3 weeks of dialysis until her peritoneal dialysis catheter fully heals. -continue to monitor hemoglobin 2. ESRD: nephrology on cs for HD-->PD CATHETER PLACED 01.05 - patient has been getting gentle peritoneal dialysis since placement of this catheter. -Continue dialysis per renal recommendations -per discussion with renal team yesterday, will continue gentle peritoneal dialysis for another 2 weeks. This is because the peritoneal dialysis catheter needs time to heal. In addition to that, as mentioned in #1 a aris catheter will be placed in the next 4 hours likely in the right groin, so that in the meantime patient can get another 2-3 weeks of regular hemodialysis until full healing and readiness of the peritoneal dialysis catheter. -Follow up with case management order to set up training for patient to use home peritoneal catheter dialysis either from home health nurse or from outpatient dialysis center. 3. pain intolerance: cont current pain regimen, may need to reach out to her outpatient pain medicine specialist, baclofen 3 times daily as well. Problems: Exam/Review of Systems Vital Signs Vitals Vital Signs Date Time Temp Pulse Resp B/P Pulse Ox O2 Delivery O2 Flow Rate FiO2 01/14/17 07:59 98.4 74 18 179/97 100 01/11/17 12:55 Room Air Intake and Output 01/13/17 01/13/17 01/14/17 15:00 23:00 07:00 Intake Total 118 ml 706 ml Balance 118 ml 706 ml Results Result Diagram: 01/14/17 0439 01/14/17 0439 Results 24 hrs Laboratory Tests Test 01/14/17 00:26 01/14/17 04:39 Activated Partial Thromboplast Time > 180.0 *H 50.5 H White Blood Count 8.0 # Red Blood Count 2.86 L Hemoglobin 8.5 L Hematocrit 26.5 L Mean Corpuscular Volume 92.7 Mean Corpuscular Hemoglobin 29.7 Mean Corpuscular Hemoglobin Concent 32.1 Red Cell Distribution Width 15.7 H Platelet Count 193 Mean Platelet Volume 10.9 H Neutrophils % 62.8 Lymphocytes % 13.4 L Monocytes % 9.0 Eosinophils % 13.8 H Basophils % 0.4 Nucleated Red Blood Cells % 0.0 Neutrophils # 5.1 Lymphocytes # 1.1 Monocytes # 0.7 Eosinophils # 1.1 H Basophils # 0.0 Nucleated Red Blood Cells # 0.0 Sodium Level 140 Potassium Level 6.3 *H Chloride Level 102 Carbon Dioxide Level 20 L Anion Gap 24 H Blood Urea Nitrogen 110 H Creatinine 14.93 H Glucose Level 102 Calcium Level 9.6 Medications Medications Current Medications Acetaminophen (Tylenol Tab) 650 mg Q6H PRN PO PAIN LEVEL 1-3 OR FEVER; Start 01/02/17 at 23:00 Docusate Sodium (Colace) 100 mg Q12H PRN PO CONSTIPATION Last administered on 01/14/17 07:55; Admin Dose 100 MG; Start 01/02/17 at 23:00 Bisacodyl (Dulcolax) 5 mg DAILY PRN PO CONSTIPATION Last administered on 07:55; Admin Dose 5 MG; Start 01/02/17 at 23:00 Aspirin (Aspirin) 81 mg DAILY PO Last administered on 01/14/17 09:46; Admin Dose 81 MG; Start 01/03/17 at 09:00 Carvedilol (Coreg) 12.5 mg BID PO Last administered on 01/14/17 09:47; Admin Dose 12.5 MG; Start 01/03/17 at 09:00 Clonidine (Catapres) 0.2 mg BID PO Last administered on 01/14/17 09:46; Admin Dose 0.2 MG; Start 01/03/17 at 09:00 Folic Acid (Folic Acid) 1 mg DAILY PO Last administered on 01/14/17 09:46; Admin Dose 1 MG; Start 01/03/17 at 09:00 Furosemide (Lasix) 20 mg DAILY PO Last administered on 01/14/17 09:47; Admin Dose 20 MG; Start 01/03/17 at 09:00 Hydralazine HCl (Apresoline) 50 mg Q12 PRN PO FOR SBP ABOVE 170 Last administered on 01/09/17 17:26; Admin Dose 50 MG; Start 01/02/17 at 23:00 Labetalol HCl (Normodyne) 100 mg BID PO ; Start 01/03/17 at 09:00; Status Future Hold Multivit/Ca Carb/ B Cmplx/FA/Prenat (Sommer-Samantha) 1 tab DAILY PO Last administered on 01/14/17 09:46; Admin Dose 1 TAB; Start 01/03/17 at 09:00 Nifedipine (Procardia Xl) 60 mg DAILY PO Last administered on 01/14/17 09:46; Admin Dose 60 MG; Start 01/03/17 at 09:00 Topiramate (Topamax Sprinkle) 25 mg BID PO Last administered on 01/14/17 09:46 ; Admin Dose 25 MG; Start 01/03/17 at 09:00 Apixaban (Eliquis) 5 mg BID PO Last administered on 01/03/17 21:58; Admin Dose 5 MG; Start 01/03/17 at 21:00; Status Future Hold Nifedipine (Procardia Xl) 30 mg HS PO Last administered on 01/13/17 23:01; Admin Dose 30 MG; Start 01/08/17 at 21:00 Diphenhydramine HCl (Benadryl) 25 mg Q6 PRN IV ITCHING Last administered on 23:03; Admin Dose 25 MG; Start 01/08/17 at 18:00 Apixaban (Eliquis) 10 mg BID PO Last administered on 01/12/17 20:40; Admin Dose 10 MG; Start 01/11/17 at 10:00; Status Future Hold Baclofen (Lioresal) 10 mg TID PO Last administered on 01/14/17 09:46; Admin Dose 10 MG; Start 01/12/17 at 21:00 Metoclopramide HCl (Reglan) 10 mg Q6H PRN IV nausea and vomiting Last administered on 01/14/17 10:49; Admin Dose 10 MG; Start 01/14/17 at 02:30 Ondansetron HCl (Zofran Inj) 8 mg Q6H PRN IV NAUSEA AND/OR VOMITING; Start 01/14/17 at 17:00; Status UNV Trimethobenzamide HCl (Tigan) 200 mg Q6H PRN IM NAUSEA AND/OR VOMITING; Start 01/14/17 at 12:00; Status UNV Morphine Sulfate (morphine) 3 mg Q4H PRN IV SEVERE PAIN LEVEL 7-10; Start 01/14 at 11:53 KATLIN MENDOZA Jan 14, 2017 11:56
--- NOTE | 2017-01-14 11:57 | CONS ---
Date/Time of Note Date/Time of Note DATE: 01/14/17 TIME: 11:51 Assessment/Plan Assessment/Plan Additional Assessment/Plan 1. Awaiting catheter placement 2. Hypertension 3. Left lower extremity deep venous thrombosis. 4. Anemia-s/p transfusion 5. s/p PD catheter and illiac venoplasty 6. ESRD on Dialysis Hemodynamically stable Continue Coreg and Nifedipine Continue Clonidine Continue heparin infusion Dialysis as scheduled Discontinued Lasix Sodium Kayexalate once Consultation Date/Type/Reason Admit Date/Time Jan 05, 2017 at 14:32 Social History Smoking Status: Current every day smoker Exam/Review of Systems Vital Signs Vitals Vital Signs Date Time Temp Pulse Resp B/P Pulse Ox O2 Delivery O2 Flow Rate FiO2 01/14/17 07:59 98.4 74 18 179/97 100 01/11/17 12:55 Room Air Intake and Output 01/13/17 01/13/17 01/14/17 15:00 23:00 07:00 Intake Total 118 ml 706 ml Balance 118 ml 706 ml Exam Head: atraumatic, normocephalic Neck: non-tender, supple Respiratory: clear to auscultation Cardiovascular: regular rate and rhythm Gastrointestinal: nl liver, spleen, non-tender, soft Extremities: edema (LLE) Results Result Diagram: 01/14/17 0439 01/14/17 0439 Results 24 hrs Laboratory Tests Test 01/14/17 00:26 01/14/17 04:39 Activated Partial Thromboplast Time > 180.0 *H 50.5 H White Blood Count 8.0 # Red Blood Count 2.86 L Hemoglobin 8.5 L Hematocrit 26.5 L Mean Corpuscular Volume 92.7 Mean Corpuscular Hemoglobin 29.7 Mean Corpuscular Hemoglobin Concent 32.1 Red Cell Distribution Width 15.7 H Platelet Count 193 Mean Platelet Volume 10.9 H Neutrophils % 62.8 Lymphocytes % 13.4 L Monocytes % 9.0 Eosinophils % 13.8 H Basophils % 0.4 Nucleated Red Blood Cells % 0.0 Neutrophils # 5.1 Lymphocytes # 1.1 Monocytes # 0.7 Eosinophils # 1.1 H Basophils # 0.0 Nucleated Red Blood Cells # 0.0 Sodium Level 140 Potassium Level 6.3 *H Chloride Level 102 Carbon Dioxide Level 20 L Anion Gap 24 H Blood Urea Nitrogen 110 H Creatinine 14.93 H Glucose Level 102 Calcium Level 9.6 Medications Medications Current Medications Ondansetron HCl (Zofran Inj) 4 mg Q6H PRN IV NAUSEA AND/OR VOMITING Last administered on 01/14/17 08:00; Admin Dose 4 MG; Start 01/02/17 at 23:00 Acetaminophen (Tylenol Tab) 650 mg Q6H PRN PO PAIN LEVEL 1-3 OR FEVER; Start 01/02/17 at 23:00 Docusate Sodium (Colace) 100 mg Q12H PRN PO CONSTIPATION Last administered on 01/14/17 07:55; Admin Dose 100 MG; Start 01/02/17 at 23:00 Bisacodyl (Dulcolax) 5 mg DAILY PRN PO CONSTIPATION Last administered on 07:55; Admin Dose 5 MG; Start 01/02/17 at 23:00 Aspirin (Aspirin) 81 mg DAILY PO Last administered on 01/14/17 09:46; Admin Dose 81 MG; Start 01/03/17 at 09:00 Carvedilol (Coreg) 12.5 mg BID PO Last administered on 01/14/17 09:47; Admin Dose 12.5 MG; Start 01/03/17 at 09:00 Clonidine (Catapres) 0.2 mg BID PO Last administered on 01/14/17 09:46; Admin Dose 0.2 MG; Start 01/03/17 at 09:00 Folic Acid (Folic Acid) 1 mg DAILY PO Last administered on 01/14/17 09:46; Admin Dose 1 MG; Start 01/03/17 at 09:00 Furosemide (Lasix) 20 mg DAILY PO Last administered on 01/14/17 09:47; Admin Dose 20 MG; Start 01/03/17 at 09:00 Hydralazine HCl (Apresoline) 50 mg Q12 PRN PO FOR SBP ABOVE 170 Last administered on 01/09/17 17:26; Admin Dose 50 MG; Start 01/02/17 at 23:00 Labetalol HCl (Normodyne) 100 mg BID PO ; Start 01/03/17 at 09:00; Status Future Hold Multivit/Ca Carb/ B Cmplx/FA/Prenat (Sommer-Samantha) 1 tab DAILY PO Last administered on 01/14/17 09:46; Admin Dose 1 TAB; Start 01/03/17 at 09:00 Nifedipine (Procardia Xl) 60 mg DAILY PO Last administered on 01/14/17 09:46; Admin Dose 60 MG; Start 01/03/17 at 09:00 Topiramate (Topamax Sprinkle) 25 mg BID PO Last administered on 01/14/17 09:46 ; Admin Dose 25 MG; Start 01/03/17 at 09:00 Apixaban (Eliquis) 5 mg BID PO Last administered on 01/03/17 21:58; Admin Dose 5 MG; Start 01/03/17 at 21:00; Status Future Hold Morphine Sulfate (morphine) 4 mg Q4H PRN IV SEVERE PAIN LEVEL 7-10 Last administered on 01/14/17 02:26; Admin Dose 4 MG; Start 01/06/17 at 03:30 Nifedipine (Procardia Xl) 30 mg HS PO Last administered on 01/13/17 23:01; Admin Dose 30 MG; Start 01/08/17 at 21:00 Diphenhydramine HCl (Benadryl) 25 mg Q6 PRN IV ITCHING Last administered on 23:03; Admin Dose 25 MG; Start 01/08/17 at 18:00 Apixaban (Eliquis) 10 mg BID PO Last administered on 01/12/17 20:40; Admin Dose 10 MG; Start 01/11/17 at 10:00; Status Future Hold Baclofen (Lioresal) 10 mg TID PO Last administered on 01/14/17 09:46; Admin Dose 10 MG; Start 01/12/17 at 21:00 Metoclopramide HCl (Reglan) 10 mg Q6H PRN IV nausea and vomiting Last administered on 01/14/17 10:49; Admin Dose 10 MG; Start 01/14/17 at 02:30 WILNER CHÁVEZ M.D. Jan 14, 2017 11:57
[2017-01-14] MEDS ORDERED: DIPHENHYDRAMINE 50 MG INJ IV PRN (12:00)
[2017-01-14] MEDS ORDERED: TRIMETHOBENZAMIDE 100 MG/ML VIAL IM PRN (12:00)
[2017-01-14] MEDS ORDERED: ONDANSETRON INJ 8 MG in SOD CHLORIDE 0.9% 50 ML IV PRN (12:00)
--- NOTE | 2017-01-14 15:02 | CONS ---
Date/Time of Note Date/Time of Note DATE: 01/14/17 TIME: 15:00 Assessment/Plan Assessment/Plan Chief Complaint/Hosp Course 1. ESRD with hyperkalemia 2. Acute deep venous thrombosis of the left lower extremity on heparin drip 3. Chronic pain. 4. Anemia. 5. Hypertension. 6. Vasculopathy. 7. uremia with pruritus. 8. EDEMA LEGS better 9. s/p pd cath placement Problems: Additional Assessment/Plan 1. Pt need immediate HD cath placement 2. K level at 1600, after last dose today she did not go to bathroom 3. ECG stat 4. No sedatives 5. transfer to higher level of care, icu 6. PD flash Consultation Date/Type/Reason Admit Date/Time Jan 05, 2017 at 14:32 Type of Consultation: nephrology Reason for Consultation dr Knox Referring Provider: JULISSA NI MD 24 HR Interval Summary Subjective hx not possible: pt critical (spoke to dr Elizabeth) Exam/Review of Systems Vital Signs Vitals Vital Signs Date Time Temp Pulse Resp B/P Pulse Ox O2 Delivery O2 Flow Rate FiO2 01/14/17 13:15 97.7 80 18 174/93 96 01/11/17 12:55 Room Air Intake and Output 01/13/17 01/13/17 01/14/17 15:00 23:00 07:00 Intake Total 118 ml 706 ml Balance 118 ml 706 ml Exam Constitutional: alert, distress, other (slow in responce) Head: normocephalic Neck: supple Respiratory: diminished breath sounds Cardiovascular: regular rate and rhythm Gastrointestinal: soft Musculoskeletal: muscle weakness, swelling (left leg) Results Result Diagram: 01/14/17 0439 01/14/17 1325 Results 24 hrs Laboratory Tests Test 01/14/17 00:26 01/14/17 04:39 01/14/17 13:25 Activated Partial Thromboplast Time > 180.0 *H 50.5 H 36.4 H White Blood Count 8.0 # Red Blood Count 2.86 L Hemoglobin 8.5 L Hematocrit 26.5 L Mean Corpuscular Volume 92.7 Mean Corpuscular Hemoglobin 29.7 Mean Corpuscular Hemoglobin Concent 32.1 Red Cell Distribution Width 15.7 H Platelet Count 193 Mean Platelet Volume 10.9 H Neutrophils % 62.8 Lymphocytes % 13.4 L Monocytes % 9.0 Eosinophils % 13.8 H Basophils % 0.4 Nucleated Red Blood Cells % 0.0 Neutrophils # 5.1 Lymphocytes # 1.1 Monocytes # 0.7 Eosinophils # 1.1 H Basophils # 0.0 Nucleated Red Blood Cells # 0.0 Sodium Level 140 Potassium Level 6.3 *H 6.1 *H Chloride Level 102 Carbon Dioxide Level 20 L Anion Gap 24 H Blood Urea Nitrogen 110 H Creatinine 14.93 H Glucose Level 102 Calcium Level 9.6 Medications Medications Current Medications Acetaminophen (Tylenol Tab) 650 mg Q6H PRN PO PAIN LEVEL 1-3 OR FEVER; Start 01/02/17 at 23:00 Docusate Sodium (Colace) 100 mg Q12H PRN PO CONSTIPATION Last administered on 01/14/17 07:55; Admin Dose 100 MG; Start 01/02/17 at 23:00 Bisacodyl (Dulcolax) 5 mg DAILY PRN PO CONSTIPATION Last administered on 07:55; Admin Dose 5 MG; Start 01/02/17 at 23:00 Aspirin (Aspirin) 81 mg DAILY PO Last administered on 01/14/17 09:46; Admin Dose 81 MG; Start 01/03/17 at 09:00 Carvedilol (Coreg) 12.5 mg BID PO Last administered on 01/14/17 09:47; Admin Dose 12.5 MG; Start 01/03/17 at 09:00 Clonidine (Catapres) 0.2 mg BID PO Last administered on 01/14/17 09:46; Admin Dose 0.2 MG; Start 01/03/17 at 09:00 Folic Acid (Folic Acid) 1 mg DAILY PO Last administered on 01/14/17 09:46; Admin Dose 1 MG; Start 01/03/17 at 09:00 Hydralazine HCl (Apresoline) 50 mg Q12 PRN PO FOR SBP ABOVE 170 Last administered on 01/09/17 17:26; Admin Dose 50 MG; Start 01/02/17 at 23:00 Labetalol HCl (Normodyne) 100 mg BID PO ; Start 01/03/17 at 09:00; Status Future Hold Multivit/Ca Carb/ B Cmplx/FA/Prenat (Sommer-Samantha) 1 tab DAILY PO Last administered on 01/14/17 09:46; Admin Dose 1 TAB; Start 01/03/17 at 09:00 Nifedipine (Procardia Xl) 60 mg DAILY PO Last administered on 01/14/17 09:46; Admin Dose 60 MG; Start 01/03/17 at 09:00 Topiramate (Topamax Sprinkle) 25 mg BID PO Last administered on 01/14/17 09:46 ; Admin Dose 25 MG; Start 01/03/17 at 09:00 Apixaban (Eliquis) 5 mg BID PO Last administered on 01/03/17 21:58; Admin Dose 5 MG; Start 01/03/17 at 21:00; Status Future Hold Nifedipine (Procardia Xl) 30 mg HS PO Last administered on 01/13/17 23:01; Admin Dose 30 MG; Start 01/08/17 at 21:00 Apixaban (Eliquis) 10 mg BID PO Last administered on 01/12/17 20:40; Admin Dose 10 MG; Start 01/11/17 at 10:00; Status Future Hold Baclofen (Lioresal) 10 mg TID PO Last administered on 01/14/17 13:46; Admin Dose 10 MG; Start 01/12/17 at 21:00 Metoclopramide HCl (Reglan) 10 mg Q6H PRN IV nausea and vomiting Last administered on 01/14/17 10:49; Admin Dose 10 MG; Start 01/14/17 at 02:30 Trimethobenzamide HCl (Tigan) 200 mg Q6H PRN IM NAUSEA AND/OR VOMITING; Start 01/14/17 at 12:00 Morphine Sulfate (morphine) 3 mg Q4H PRN IV SEVERE PAIN LEVEL 7-10; Start 01/14 at 11:53 Diphenhydramine HCl 12.5 mg 12.5 mg Q6 PRN IV ITCHING; Start 01/14/17 at 12:00 Ondansetron HCl/ Sodium Chloride (Zofran Inj/NS) 54 ml @ 216 mls/hr Q6H PRN IV NAUSEA AND/OR VOMITING; Start 01/14/17 at 12:00 MANI PRECIADO Jan 14, 2017 15:02
[2017-01-14] MEDS ORDERED: hydrALAzine 20 MG INJ IV PRN ×2 (15:30→17:00)
[2017-01-14] MEDS ORDERED: morphine 2 MG INJ IV PRN ×3 (15:30→21:30)
[2017-01-14] MEDS ORDERED: NALOXONE (0.4 MG/ML) INJ IV ONE (15:30)
[2017-01-14] MEDS: HEPARIN 25000 UNITS/250 ML 250 ML IV SCH (15:44)
[2017-01-14] MEDS ORDERED: INSULIN ASPART [NOVOLOG] 3 ML PEN SC ONE (16:00)
[2017-01-14] MEDS ORDERED: CALCIUM GLUCONATE 10% 1 GM in SOD CHLORIDE 0.9% 100 ML IVPB ONE (16:00)
[2017-01-14] MEDS ORDERED: DEXTROSE 50% 50 ML SYRINGE IV ONE (16:00)
[2017-01-14] MEDS ORDERED: ONDANSETRON 4 MG INJ IV PRN (17:00)
--- NOTE | 2017-01-14 17:02 | OPR ---
Date/Time of Note Date/Time of Note DATE: 01/14/17 TIME: 16:57 Operative Report Procedure Date: Jan 14, 2017 Preoperative Diagnosis ESRD Postoperative Diagnosis ESRD Operation/Procedure Performed RIGHT FEMORAL KAILA CATHETER PLACEMENT Surgeon see signature line Head Of Housekeeping NONE Anesthesia Type: other (LOCAL) Estimated Blood Loss: minimal Transfusion none Specimen NONE Grafts/Implants none Complications none Pt Condition Post Procedure: stable Disposition: other (ICU) Procedure Description DATE OF OPERATION: 01/13/2017 SURGEON: Julissa Ni MD PREOPERATIVE DIAGNOSIS: ESRD POSTOPERATIVE DIAGNOSIS: same ANESTHESIA: Local BLOOD LOSS: minimal COMPLICATIONS: None. ACCESS: Right common femoral vein INDICATIONS: This is a 31 year-old female with ESRD and now peritoneal dialysis catheter placement that cannot be used yet. She had her left groin catheter removed as she had developed worsening swelling of the LLE. Unfortunately patient ate yesterday which delayed her new perm catheter placement and now developed worsened hyperkalemia, uremia and mentation issues. Nephrology has asked for immediate catheter placement despite being on Eliquis. She was on the was on the schedule for tomorrow morning . Patient and family have been informed of the alternatives, risks, and benefits. Risks including but not limited to bleeding, thrombosis, embolization, myocardial infarction, , device malfunction, infection, pneumothorax, nephrotoxicity and patient has agreed to proceed. PROCEDURE: 1. Ultrasound guided access of right common femoral vein 2. Right common femoral vein non-tunneled hemodialysis catheter placement DESCRIPTION: The patient was in supine position in her ICU bed. Bed was placed in slight Trendelenburg position and the groin was prepped and draped with sterile technique. The central catheter was flushed with heparin to ensure function of each port. Landmarks were identified and the skin entry site was chosen using ultrasound guidance. The skin And subcutaneous tissue were anesthetized with 1% lidocaine. The vein was then located with a needle with a 10 mL syringe using ultrasound guidance. The needle was then directed towards the vein and was entered. The needle position was secured and syringe was removed. The hub was occluded to prevent venous air embolus. The guidewire was passed easily and the needle was removed while the wire was held in place. A small incision was then made at the point of the wire entry. The dilator was placed over the wire and the tract gently dilated. The catheter was fed over the wire, ensuring the wire exited from the port before advancing the catheter. The catheter was inserted to the desired depth and the wire removed. Each port was aspirated to ensure adequate blood flow and then flushed with heparinized saline solution. The catheter was secured in place with a 2-0 nylon suture and a sterile dressing was applied. The patient tolerated the procedure well and was in stable condition. All instrument, sponge and needle counts were correct 2. JULISSA NI MD Jan 14, 2017 17:02
[2017-01-14] MEDS ORDERED: MANNITOL 20% 250 ML IV ONE (18:00)
[2017-01-14] MEDS ORDERED: MANNITOL 25% 50 ML INJ IV* ONE (19:00)
[2017-01-14] MEDS: NIFEdipine (XL) 30 MG TAB PO SCH (22:44)
[2017-01-14 23:49] LABS: CALCIUM 9.9 mg/dl (8.4-10.2); CREATININE 13.53 mg/dl (0.44-1.00); POTASSIUM 4.6 mmol/L (3.5-5.1)
[2017-01-15] VITALS (25 sets, daily range): BP systolic 128–184; BP diastolic 78–128; PULSE 64–83; RESP 9–22
[2017-01-15] MEDS: hydrALAzine 20 MG INJ IV PRN (04:23)
[2017-01-15 05:26] LABS: BASOPHILS % 0.5 % (0.0-2.0); EOSINOPHILS # 0.3 10^3/ul (0.0-0.5); EOSINOPHILS % 3.2 % (0.0-7.0); HEMATOCRIT 24.9 % (37.0-47.0); LYMPHOCYTES # 0.9 10^3/ul (0.8-2.9); LYMPHOCYTES % 10.2 % (15.0-51.0); MEAN CORPUSCULAR HEMOGLOBIN 29.7 pg (29.0-33.0); MEAN CORPUSCULAR HGB CONC 32.1 g/dl (32.0-37.0); MEAN CORPUSCULAR VOLUME 92.6 fl (82.0-101.0); MEAN PLATELET VOLUME 10.7 fl (7.4-10.4); MONOCYTE # 0.7 10^3/ul (0.3-0.9); MONOCYTES % 7.9 % (0.0-11.0); NEUTROPHIL # 6.5 10^3/ul (1.6-7.5); NEUTROPHILS % 77.7 % (39.0-77.0); PLATELET COUNT 150 10^3/UL (140-415); RED BLOOD COUNT 2.69 10^6/ul (4.20-5.40); RED CELL DISTRIBUTION WIDTH 15.7 % (11.5-14.5); WHITE BLOOD COUNT 8.3 10^3/ul (4.8-10.8)
[2017-01-15 06:38] LABS: CALCIUM 9.4 mg/dl (8.4-10.2); CREATININE 13.37 mg/dl (0.44-1.00); POTASSIUM 4.5 mmol/L (3.5-5.1)
[2017-01-15] MEDS: HEPARIN 1000 UNITS/ML 10 ML INJ IV PRN (09:09)
[2017-01-15] MEDS: ASPIRIN 81 MG TAB PO SCH (09:30)
[2017-01-15] MEDS: MULTIVIT/CA CARB/B CMPLX/FA TAB PO SCH (09:30)
[2017-01-15] MEDS: NIFEdipine (XL) 60 MG TAB PO SCH (09:30)
[2017-01-15] MEDS: TOPIRAMATE SPRINKLE 25 MG CAP PO SCH ×2 (09:30→20:50)
[2017-01-15] MEDS: SEVELAMER 800 MG TAB PO SCH ×3 (09:30→17:35)
[2017-01-15] MEDS: BACLOFEN 10 MG TAB PO SCH ×3 (09:31→20:51)
[2017-01-15] MEDS: FOLIC ACID 1 MG TAB PO SCH (09:31)
--- NOTE | 2017-01-15 09:51 | PN ---
Date/Time of Note Date/Time of Note DATE: 01/15/17 TIME: 09:41 Assessment/Plan VTE Prophylaxis VTE Prophylaxis Intervention: heparin Lines/Catheters IV Catheter Type (from Nrs): HD line Urinary Cath still in place: No Assessment/Plan Chief Complaint/Hosp Course S: Pt had to be transferred to intensive care unit yesterday after becoming more lethargic. She did respond to 1 dose of Narcan. She also received right groin Aris catheter placement and received dialysis through that yesterday evening. PermCath was also ordered from recommendation of vascular surgery team , still waiting for that to be placed as well. O: VS (see below) PE: Lying in bed, no acute distress Pupils equal round reactive light extra ocular muscles are intact Supple resp nonlabored S1, S2 heard no gross abd distension no UE edema Assessment/Plan: 31 yo F with ESRD on HD, recent admission for MSSA CLABSI/ tunnel infection, found to have large LLE DVT at that time readmitted for worsening LLE pain. Imaging with worsening of clot despite anticoagulation, now status post peritoneal catheter dialysis. 1. LLE DVT - also superficial thrombophlebitis: Again back on heparin drip sec to first needing Aris cath and right groin (placed yesterday) and now PermCath in right groin placed (pending). -Follow for placement of PermCath, patient will need to be back on Eliquis dose 10 mg BID, per vascular surgery for life, after this right groin catheter placed. Per discussion with vascular surgery team, patient will need this right groin catheter for another 2-3 weeks of dialysis until her peritoneal dialysis catheter fully heals, then it can be removed. -continue to monitor hemoglobin. 2. ESRD: nephrology on cs for HD-->PD CATHETER PLACED 01.05 - patient has been getting gentle peritoneal dialysis since placement of this catheter. Again, received right groin catheter yesterday and received dialysis last night through this access. -Continue dialysis per renal recommendations - per discussion with renal team , will continue gentle peritoneal dialysis for another 2 weeks. This is because the peritoneal dialysis catheter needs time to heal. In addition to that, as mentioned in #1 right groin catheter will be needed for another 2-3 weeks of regular hemodialysis through this, until full healing and readiness of the peritoneal dialysis catheter occurs. -Follow up with case management order to set up training for patient to use home peritoneal catheter dialysis either from home health nurse or from outpatient dialysis center. 3. pain intolerance: Given her episode of lethargy and some hypotension, have significantly cut back on opiate medications now. -Monitor for signs of opiate withdrawal. Critical care time spent on patient care today equals 45 minutes. Problems: Exam/Review of Systems Vital Signs Vitals Vital Signs Date Time Temp Pulse Resp B/P Pulse Ox O2 Delivery O2 Flow Rate FiO2 01/15/17 04:00 80 01/15/17 00:15 11 01/15/17 00:00 98.0 174/103 100 01/14/17 18:00 Room Air Intake and Output 01/14/17 01/14/17 01/15/17 15:00 23:00 07:00 Intake Total 652 ml 11 ml Output Total 200 ml 1500 ml Balance -200 ml -848 ml 11 ml Results Result Diagram: 01/15/17 0420 01/15/17 0420 Results 24 hrs Laboratory Tests Test 01/14/17 13:25 01/14/17 18:01 01/14/17 20:36 01/14/17 22:12 Activated Partial Thromboplast Time 36.4 H > 180.0 *H 63.3 H Potassium Level 6.1 *H Bedside Glucose 87 Test 01/14/17 23:06 01/15/17 04:20 01/15/17 04:49 Sodium Level 141 140 Potassium Level 4.6 4.5 Chloride Level 101 102 Carbon Dioxide Level 23 23 Anion Gap 22 H 20 H Blood Urea Nitrogen 91 H 92 H Creatinine 13.53 H 13.37 H Glucose Level 109 103 Calcium Level 9.9 9.4 White Blood Count 8.3 Red Blood Count 2.69 L Hemoglobin 8.0 L Hematocrit 24.9 L Mean Corpuscular Volume 92.6 Mean Corpuscular Hemoglobin 29.7 Mean Corpuscular Hemoglobin Concent 32.1 Red Cell Distribution Width 15.7 H Platelet Count 150 # Mean Platelet Volume 10.7 H Neutrophils % 77.7 H Lymphocytes % 10.2 L Monocytes % 7.9 Eosinophils % 3.2 Basophils % 0.5 Nucleated Red Blood Cells % 0.0 Neutrophils # 6.5 Lymphocytes # 0.9 Monocytes # 0.7 Eosinophils # 0.3 Basophils # 0.0 Nucleated Red Blood Cells # 0.0 Activated Partial Thromboplast Time 51.8 H Bedside Glucose 106 Medications Medications Current Medications Acetaminophen (Tylenol Tab) 650 mg Q6H PRN PO PAIN LEVEL 1-3 OR FEVER; Start 01/02/17 at 23:00 Docusate Sodium (Colace) 100 mg Q12H PRN PO CONSTIPATION Last administered on 01/14/17 07:55; Admin Dose 100 MG; Start 01/02/17 at 23:00 Bisacodyl (Dulcolax) 5 mg DAILY PRN PO CONSTIPATION Last administered on 07:55; Admin Dose 5 MG; Start 01/02/17 at 23:00 Aspirin (Aspirin) 81 mg DAILY PO Last administered on 01/15/17 09:30; Admin Dose 81 MG; Start 01/03/17 at 09:00 Carvedilol (Coreg) 12.5 mg BID PO Last administered on 01/15/17 09:31; Admin Dose 12.5 MG; Start 01/03/17 at 09:00 Clonidine (Catapres) 0.2 mg BID PO Last administered on 01/15/17 09:32; Admin Dose 0.2 MG; Start 01/03/17 at 09:00 Folic Acid (Folic Acid) 1 mg DAILY PO Last administered on 01/15/17 09:31; Admin Dose 1 MG; Start 01/03/17 at 09:00 Hydralazine HCl (Apresoline) 50 mg Q12 PRN PO FOR SBP ABOVE 170 Last administered on 01/09/17 17:26; Admin Dose 50 MG; Start 01/02/17 at 23:00 Labetalol HCl (Normodyne) 100 mg BID PO ; Start 01/03/17 at 09:00; Status Future Hold Multivit/Ca Carb/ B Cmplx/FA/Prenat (Sommer-Samantha) 1 tab DAILY PO Last administered on 01/15/17 09:30; Admin Dose 1 TAB; Start 01/03/17 at 09:00 Nifedipine (Procardia Xl) 60 mg DAILY PO Last administered on 01/15/17 09:30 ; Admin Dose 60 MG; Start 01/03/17 at 09:00 Topiramate (Topamax Sprinkle) 25 mg BID PO Last administered on 01/15/17 09: 30; Admin Dose 25 MG; Start 01/03/17 at 09:00 Apixaban (Eliquis) 5 mg BID PO Last administered on 01/03/17 21:58; Admin Dose 5 MG; Start 01/03/17 at 21:00; Status Future Hold Nifedipine (Procardia Xl) 30 mg HS PO Last administered on 01/14/17 22:44; Admin Dose 30 MG; Start 01/08/17 at 21:00 Apixaban (Eliquis) 10 mg BID PO Last administered on 01/12/17 20:40; Admin Dose 10 MG; Start 01/11/17 at 10:00; Status Future Hold Baclofen (Lioresal) 10 mg TID PO Last administered on 01/15/17 09:31; Admin Dose 10 MG; Start 01/12/17 at 21:00 Metoclopramide HCl (Reglan) 10 mg Q6H PRN IV nausea and vomiting Last administered on 01/14/17 19:25; Admin Dose 10 MG; Start 01/14/17 at 02:30 Trimethobenzamide HCl 200 mg 200 mg Q6H PRN IM NAUSEA AND/OR VOMITING; Start 01/14/17 at 12:00 Ondansetron HCl/ Sodium Chloride (Zofran Inj/NS) 54 ml @ 216 mls/hr Q6H PRN IV NAUSEA AND/OR VOMITING; Start 01/14/17 at 12:00 Morphine Sulfate (morphine) 1 mg Q8H PRN IV SEVERE PAIN LEVEL 7-10; Start 01/14 at 16:30 Hydralazine HCl (Apresoline) 10 mg Q4H PRN IV SBP GREATER THAN 160 Last administered on 01/15/17 04:23; Admin Dose 10 MG; Start 01/15/17 at 01:00 Diphenhydramine HCl (Benadryl) 25 mg Q6H PRN PO ITCHING; Start 01/15/17 at 10: 00; Status KATLIN WILSON Jan 15, 2017 09:51
[2017-01-15] MEDS ORDERED: DIPHENHYDRAMINE 25 MG CAP PO PRN (10:00)
--- NOTE | 2017-01-15 11:12 | CONS ---
Date/Time of Note Date/Time of Note DATE: 01/15/17 TIME: 11:08 Assessment/Plan Assessment/Plan Additional Assessment/Plan Hypertensive emergency Left lower extremity deep venous thrombosis. Anemia-s/p transfusion s/p PD catheter and iliac venoplasty ESRD on Dialysis Morphine Overdose Hypertensive she became lethargic and was given morphine and benadryl and had to be given narcan she got Aris and had Dialysis yesterday and scheduled again for today hyperkalemia resolved with dialysis and sodium kayexalate Continue Coreg and Nifedipine Continue Clonidine Continue heparin infusion Dialysis as scheduled Consultation Date/Type/Reason Admit Date/Time Jan 05, 2017 at 14:32 Initial Consult Date Type of Consultation: nephrology Referring Provider: JULISSA NI MD Exam/Review of Systems Vital Signs Vitals Vital Signs Date Time Temp Pulse Resp B/P Pulse Ox O2 Delivery O2 Flow Rate FiO2 01/15/17 10:00 72 10 136/87 99 Room Air 01/15/17 08:00 98.4 Intake and Output 01/14/17 01/14/17 01/15/17 15:00 23:00 07:00 Intake Total 652 ml 11 ml Output Total 200 ml 1500 ml Balance -200 ml -848 ml 11 ml Exam Head: atraumatic, normocephalic Neck: non-tender, supple Respiratory: clear to auscultation Cardiovascular: regular rate and rhythm Gastrointestinal: nl liver, spleen, non-tender, soft Extremities: edema LLE Results Result Diagram: 01/15/17 0420 01/15/17 0420 Results 24 hrs Laboratory Tests Test 01/14/17 13:25 01/14/17 18:01 01/14/17 20:36 01/14/17 22:12 Activated Partial Thromboplast Time 36.4 H > 180.0 *H 63.3 H Potassium Level 6.1 *H Bedside Glucose 87 Test 01/14/17 23:06 01/15/17 04:20 01/15/17 04:49 Sodium Level 141 140 Potassium Level 4.6 4.5 Chloride Level 101 102 Carbon Dioxide Level 23 23 Anion Gap 22 H 20 H Blood Urea Nitrogen 91 H 92 H Creatinine 13.53 H 13.37 H Glucose Level 109 103 Calcium Level 9.9 9.4 White Blood Count 8.3 Red Blood Count 2.69 L Hemoglobin 8.0 L Hematocrit 24.9 L Mean Corpuscular Volume 92.6 Mean Corpuscular Hemoglobin 29.7 Mean Corpuscular Hemoglobin Concent 32.1 Red Cell Distribution Width 15.7 H Platelet Count 150 # Mean Platelet Volume 10.7 H Neutrophils % 77.7 H Lymphocytes % 10.2 L Monocytes % 7.9 Eosinophils % 3.2 Basophils % 0.5 Nucleated Red Blood Cells % 0.0 Neutrophils # 6.5 Lymphocytes # 0.9 Monocytes # 0.7 Eosinophils # 0.3 Basophils # 0.0 Nucleated Red Blood Cells # 0.0 Activated Partial Thromboplast Time 51.8 H Bedside Glucose 106 Medications Medications Current Medications Acetaminophen (Tylenol Tab) 650 mg Q6H PRN PO PAIN LEVEL 1-3 OR FEVER; Start 01/02/17 at 23:00 Docusate Sodium (Colace) 100 mg Q12H PRN PO CONSTIPATION Last administered on 01/14/17 07:55; Admin Dose 100 MG; Start 01/02/17 at 23:00 Bisacodyl (Dulcolax) 5 mg DAILY PRN PO CONSTIPATION Last administered on 07:55; Admin Dose 5 MG; Start 01/02/17 at 23:00 Aspirin (Aspirin) 81 mg DAILY PO Last administered on 01/15/17 09:30; Admin Dose 81 MG; Start 01/03/17 at 09:00 Carvedilol (Coreg) 12.5 mg BID PO Last administered on 01/15/17 09:31; Admin Dose 12.5 MG; Start 01/03/17 at 09:00 Clonidine (Catapres) 0.2 mg BID PO Last administered on 01/15/17 09:32; Admin Dose 0.2 MG; Start 01/03/17 at 09:00 Folic Acid (Folic Acid) 1 mg DAILY PO Last administered on 01/15/17 09:31; Admin Dose 1 MG; Start 01/03/17 at 09:00 Hydralazine HCl (Apresoline) 50 mg Q12 PRN PO FOR SBP ABOVE 170 Last administered on 01/09/17 17:26; Admin Dose 50 MG; Start 01/02/17 at 23:00 Labetalol HCl (Normodyne) 100 mg BID PO ; Start 01/03/17 at 09:00; Status Future Hold Multivit/Ca Carb/ B Cmplx/FA/Prenat (Sommer-Samantha) 1 tab DAILY PO Last administered on 01/15/17 09:30; Admin Dose 1 TAB; Start 01/03/17 at 09:00 Nifedipine (Procardia Xl) 60 mg DAILY PO Last administered on 01/15/17 09:30 ; Admin Dose 60 MG; Start 01/03/17 at 09:00 Topiramate (Topamax Sprinkle) 25 mg BID PO Last administered on 01/15/17 09: 30; Admin Dose 25 MG; Start 01/03/17 at 09:00 Apixaban (Eliquis) 5 mg BID PO Last administered on 01/03/17 21:58; Admin Dose 5 MG; Start 01/03/17 at 21:00; Status Future Hold Nifedipine (Procardia Xl) 30 mg HS PO Last administered on 01/14/17 22:44; Admin Dose 30 MG; Start 01/08/17 at 21:00 Apixaban (Eliquis) 10 mg BID PO Last administered on 01/12/17 20:40; Admin Dose 10 MG; Start 01/11/17 at 10:00; Status Future Hold Baclofen (Lioresal) 10 mg TID PO Last administered on 01/15/17 09:31; Admin Dose 10 MG; Start 01/12/17 at 21:00 Metoclopramide HCl (Reglan) 10 mg Q6H PRN IV nausea and vomiting Last administered on 01/14/17 19:25; Admin Dose 10 MG; Start 01/14/17 at 02:30 Trimethobenzamide HCl 200 mg 200 mg Q6H PRN IM NAUSEA AND/OR VOMITING; Start 01/14/17 at 12:00 Ondansetron HCl/ Sodium Chloride (Zofran Inj/NS) 54 ml @ 216 mls/hr Q6H PRN IV NAUSEA AND/OR VOMITING; Start 01/14/17 at 12:00 Morphine Sulfate (morphine) 1 mg Q8H PRN IV SEVERE PAIN LEVEL 7-10; Start 01/14 at 16:30 Hydralazine HCl (Apresoline) 10 mg Q4H PRN IV SBP GREATER THAN 160 Last administered on 01/15/17 04:23; Admin Dose 10 MG; Start 12/10/17 at 01:00 Diphenhydramine HCl (Benadryl) 25 mg Q6H PRN PO ITCHING; Start 01/15/17 at 10: 00 WILNER CHÁVEZ M.D. Jan 15, 2017 11:12
--- NOTE | 2017-01-15 14:19 | CONS ---
Date/Time of Note Date/Time of Note DATE: 01/15/17 TIME: 14:18 Assessment/Plan Assessment/Plan Chief Complaint/Hosp Course 1. ESRD with hyperkalemia, better 2. Acute deep venous thrombosis of the left lower extremity on heparin drip 3. Chronic pain. 4. Anemia. 5. Hypertension. 6. Vasculopathy. 7. uremia with pruritus. 8. EDEMA LEGS better 9. s/p pd cath placement Problems: Additional Assessment/Plan 1. continue HD 2. decrease amount of narcotics Consultation Date/Type/Reason Admit Date/Time Jan 05, 2017 at 14:32 Type of Consultation: nephrology Reason for Consultation Dr Knox Referring Provider: JULISSA NI MD 24 HR Interval Summary Subjective hx not possible: pt critical, other (lethargic) Exam/Review of Systems Vital Signs Vitals Vital Signs Date Time Temp Pulse Resp B/P Pulse Ox O2 Delivery O2 Flow Rate FiO2 01/15/17 10:00 72 10 136/87 99 Room Air 01/15/17 08:00 98.4 Intake and Output 01/14/17 01/14/17 01/15/17 15:00 23:00 07:00 Intake Total 652 ml 11 ml Output Total 200 ml 1500 ml Balance -200 ml -848 ml 11 ml Exam Constitutional: obese, other (lethargic) Head: other (assymetrical face) Neck: supple Respiratory: diminished breath sounds Cardiovascular: regular rate and rhythm Musculoskeletal: muscle weakness Results Result Diagram: 01/15/170 01/15/17 0420 Results 24 hrs Laboratory Tests Test 01/14/17 18:01 01/14/17 20:36 01/14/17 22:12 01/14/17 23:06 Activated Partial Thromboplast Time > 180.0 *H 63.3 H Bedside Glucose 87 Sodium Level 141 Potassium Level 4.6 Chloride Level 101 Carbon Dioxide Level 23 Anion Gap 22 H Blood Urea Nitrogen 91 H Creatinine 13.53 H Glucose Level 109 Calcium Level 9.9 Test 01/15/17 04:20 01/15/17 04:49 White Blood Count 8.3 Red Blood Count 2.69 L Hemoglobin 8.0 L Hematocrit 24.9 L Mean Corpuscular Volume 92.6 Mean Corpuscular Hemoglobin 29.7 Mean Corpuscular Hemoglobin Concent 32.1 Red Cell Distribution Width 15.7 H Platelet Count 150 # Mean Platelet Volume 10.7 H Neutrophils % 77.7 H Lymphocytes % 10.2 L Monocytes % 7.9 Eosinophils % 3.2 Basophils % 0.5 Nucleated Red Blood Cells % 0.0 Neutrophils # 6.5 Lymphocytes # 0.9 Monocytes # 0.7 Eosinophils # 0.3 Basophils # 0.0 Nucleated Red Blood Cells # 0.0 Activated Partial Thromboplast Time 51.8 H Sodium Level 140 Potassium Level 4.5 Chloride Level 102 Carbon Dioxide Level 23 Anion Gap 20 H Blood Urea Nitrogen 92 H Creatinine 13.37 H Glucose Level 103 Calcium Level 9.4 Bedside Glucose 106 Medications Medications Current Medications Acetaminophen (Tylenol Tab) 650 mg Q6H PRN PO PAIN LEVEL 1-3 OR FEVER; Start 01/02/17 at 23:00 Docusate Sodium (Colace) 100 mg Q12H PRN PO CONSTIPATION Last administered on 01/14/17 07:55; Admin Dose 100 MG; Start 01/02/17 at 23:00 Bisacodyl (Dulcolax) 5 mg DAILY PRN PO CONSTIPATION Last administered on 07:55; Admin Dose 5 MG; Start 01/02/17 at 23:00 Aspirin (Aspirin) 81 mg DAILY PO Last administered on 01/15/17 09:30; Admin Dose 81 MG; Start 01/03/17 at 09:00 Carvedilol (Coreg) 12.5 mg BID PO Last administered on 01/15/17 09:31; Admin Dose 12.5 MG; Start 01/03/17 at 09:00 Clonidine (Catapres) 0.2 mg BID PO Last administered on 01/15/17 09:32; Admin Dose 0.2 MG; Start 01/03/17 at 09:00 Folic Acid (Folic Acid) 1 mg DAILY PO Last administered on 01/15/17 09:31; Admin Dose 1 MG; Start 01/03/17 at 09:00 Hydralazine HCl (Apresoline) 50 mg Q12 PRN PO FOR SBP ABOVE 170 Last administered on 01/09/17 17:26; Admin Dose 50 MG; Start 01/02/17 at 23:00 Labetalol HCl (Normodyne) 100 mg BID PO ; Start 01/03/17 at 09:00; Status Future Hold Multivit/Ca Carb/ B Cmplx/FA/Prenat (Somemr-Samantha) 1 tab DAILY PO Last administered on 01/15/17 09:30; Admin Dose 1 TAB; Start 01/03/17 at 09:00 Nifedipine (Procardia Xl) 60 mg DAILY PO Last administered on 01/15/17 09:30 ; Admin Dose 60 MG; Start 01/03/17 at 09:00 Topiramate (Topamax Sprinkle) 25 mg BID PO Last administered on 01/15/17 09: 30; Admin Dose 25 MG; Start 01/03/17 at 09:00 Apixaban (Eliquis) 5 mg BID PO Last administered on 01/03/17 21:58; Admin Dose 5 MG; Start 01/03/17 at 21:00; Status Future Hold Nifedipine (Procardia Xl) 30 mg HS PO Last administered on 01/14/17 22:44; Admin Dose 30 MG; Start 01/08/17 at 21:00 Apixaban (Eliquis) 10 mg BID PO Last administered on 01/12/17 20:40; Admin Dose 10 MG; Start 01/11/17 at 10:00; Status Future Hold Baclofen (Lioresal) 10 mg TID PO Last administered on 01/15/17 09:31; Admin Dose 10 MG; Start 01/12/17 at 21:00 Metoclopramide HCl (Reglan) 10 mg Q6H PRN IV nausea and vomiting Last administered on 01/14/17 19:25; Admin Dose 10 MG; Start 01/14/17 at 02:30 Trimethobenzamide HCl 200 mg 200 mg Q6H PRN IM NAUSEA AND/OR VOMITING; Start 01/14/17 at 12:00 Ondansetron HCl/ Sodium Chloride (Zofran Inj/NS) 54 ml @ 216 mls/hr Q6H PRN IV NAUSEA AND/OR VOMITING; Start 01/14/17 at 12:00 Morphine Sulfate (morphine) 1 mg Q8H PRN IV SEVERE PAIN LEVEL 7-10; Start 01/14 at 16:30 Hydralazine HCl (Apresoline) 10 mg Q4H PRN IV SBP GREATER THAN 160 Last administered on 01/15/17 04:23; Admin Dose 10 MG; Start 01/15/17 at 01:00 Diphenhydramine HCl (Benadryl) 25 mg Q6H PRN PO ITCHING; Start 01/15/17 at 10: 00 MANI PRECIADO Jan 15, 2017 14:19
[2017-01-15] MEDS: HEPARIN 25000 UNITS/250 ML 250 ML IV SCH (15:22)
[2017-01-15] MEDS: METOCLOPRAMIDE 10 MG INJ IV PRN (17:22)
[2017-01-15] MEDS: NIFEdipine (XL) 30 MG TAB PO SCH (20:51)
[2017-01-16] VITALS (20 sets, daily range): BP systolic 104–186; BP diastolic 74–146; PULSE 65–97; RESP 10–21
[2017-01-16] MEDS: hydrALAzine 20 MG INJ IV PRN (06:33)
[2017-01-16 06:47] LABS: BASOPHIL # 0.1 10^3/ul (0.0-0.1); BASOPHILS % 0.6 % (0.0-2.0); EOSINOPHILS # 0.3 10^3/ul (0.0-0.5); EOSINOPHILS % 3.4 % (0.0-7.0); HEMATOCRIT 26.7 % (37.0-47.0); HEMOGLOBIN 8.7 g/dl (12.0-16.0); LYMPHOCYTES # 1.3 10^3/ul (0.8-2.9); LYMPHOCYTES % 14.9 % (15.0-51.0); MEAN CORPUSCULAR HEMOGLOBIN 30.2 pg (29.0-33.0); MEAN CORPUSCULAR HGB CONC 32.6 g/dl (32.0-37.0); MEAN CORPUSCULAR VOLUME 92.7 fl (82.0-101.0); MEAN PLATELET VOLUME 11.1 fl (7.4-10.4); MONOCYTE # 0.8 10^3/ul (0.3-0.9); MONOCYTES % 8.9 % (0.0-11.0); NEUTROPHILS % 71.8 % (39.0-77.0); PLATELET COUNT 156 10^3/UL (140-415); RED BLOOD COUNT 2.88 10^6/ul (4.20-5.40); RED CELL DISTRIBUTION WIDTH 15.2 % (11.5-14.5); WHITE BLOOD COUNT 8.4 10^3/ul (4.8-10.8)
[2017-01-16 06:55] LABS: CALCIUM 9.6 mg/dl (8.4-10.2); CREATININE 11.3 mg/dl (0.44-1.00); PHOSPHORUS 7.8 mg/dl (2.5-4.9); POTASSIUM 4.1 mmol/L (3.5-5.1)
[2017-01-16] MEDS: SEVELAMER 800 MG TAB PO SCH ×3 (07:35→17:42)
[2017-01-16] MEDS ORDERED: LORAZEPAM 2 MG INJ ONE (09:45)
[2017-01-16] MEDS ORDERED: OLANZAPINE 10 MG VIAL IM ONE ×2 (10:00→10:30)
[2017-01-16] MEDS ORDERED: FENTAnyl 50 MCG/ML VIAL IV ONE (10:00)
[2017-01-16] MEDS ORDERED: LORAZEPAM 2 MG INJ IV ONE ×2 (10:00)
--- NOTE | 2017-01-16 10:11 | CONS ---
Date/Time of Note Date/Time of Note DATE: 01/16/17 TIME: 10:03 Assessment/Plan Assessment/Plan Chief Complaint/Hosp Course 31 Y/O withh 1. ESRD with hyperkalemia, better s/p Stat HD X last 2 days from rt groin catheter 2. Acute deep venous thrombosis of the left lower extremity on heparin drip 3. Chronic pain. 4. Anemia. 5. Hypertension. 6. Vasculopathy. 7. uremia with pruritus. 8. s/p pd cath placement Recs - plan pd cath care and gentle pd w 500 cc2.5 % dex vs HD tmw ; will reassess - Pt will need out pt PD trainiG at [facility] - continue hd for now - Drug withdrawal in hospital, consider drugs being brought by family - c/w Renagel - Renal diet - Bp control with Nifedipine 30/60, Coreg 12.5 bid and clonidine 0.2 bid Problems: Consultation Date/Type/Reason Admit Date/Time Jan 05, 2017 at 14:32 Initial Consult Date Type of Consultation: nephrology Referring Provider: JULISSA NI MD 24 HR Interval Summary Free Text/Dictation Pt was all yelling this am, now given sedatives Could be possibility of drug withdrwal with drugs brought from outside by family s/p HD yesterday Exam/Review of Systems Vital Signs Vitals Vital Signs Date Time Temp Pulse Resp B/P Pulse Ox O2 Delivery O2 Flow Rate FiO2 01/16/17 08:00 97 01/16/17 06:00 21 183/116 100 Room Air 01/16/17 05:00 98.3 Intake and Output 01/15/17 01/15/17 01/16/17 15:00 23:00 07:00 Intake Total 109 ml 898 ml 242 ml Output Total 200 ml 3640 ml 170 ml Balance -91 ml -2742 ml 72 ml Exam Constitutional: now s/p sedatives Head: normocephalic Neck: supple Respiratory: diminished breath sounds Cardiovascular: regular rate and rhythm Gastrointestinal: soft Abdomen : PD cath in LLQ Musculoskeletal: muscle weakness, swelling (left leg) Results Result Diagram: 01/16/17 0600 01/16/17 0600 Results 24 hrs Laboratory Tests Test 01/15/17 14:55 01/15/17 16:47 01/16/17 00:17 01/16/17 06:00 Activated Partial Thromboplast Time 168.5 *H 70.0 H 108.2 *H 94.4 *H White Blood Count 8.4 Red Blood Count 2.88 L Hemoglobin 8.7 L Hematocrit 26.7 L Mean Corpuscular Volume 92.7 Mean Corpuscular Hemoglobin 30.2 Mean Corpuscular Hemoglobin Concent 32.6 Red Cell Distribution Width 15.2 H Platelet Count 156 Mean Platelet Volume 11.1 H Neutrophils % 71.8 Lymphocytes % 14.9 L Monocytes % 8.9 Eosinophils % 3.4 Basophils % 0.6 Nucleated Red Blood Cells % 0.0 Neutrophils # 6.0 Lymphocytes # 1.3 Monocytes # 0.8 Eosinophils # 0.3 Basophils # 0.1 Nucleated Red Blood Cells # 0.0 Sodium Level 143 Potassium Level 4.1 Chloride Level 101 Carbon Dioxide Level 26 Anion Gap 20 H Blood Urea Nitrogen 67 H Creatinine 11.30 #H Glucose Level 109 Calcium Level 9.6 Phosphorus Level 7.8 H Magnesium Level 2.0 Medications Medications Current Medications Acetaminophen (Tylenol Tab) 650 mg Q6H PRN PO PAIN LEVEL 1-3 OR FEVER; Start 01/02/17 at 23:00 Docusate Sodium (Colace) 100 mg Q12H PRN PO CONSTIPATION Last administered on 01/14/17 07:55; Admin Dose 100 MG; Start 01/02/17 at 23:00 Bisacodyl (Dulcolax) 5 mg DAILY PRN PO CONSTIPATION Last administered on 07:55; Admin Dose 5 MG; Start 01/02/17 at 23:00 Aspirin (Aspirin) 81 mg DAILY PO Last administered on 01/15/17 09:30; Admin Dose 81 MG; Start 01/03/17 at 09:00 Carvedilol (Coreg) 12.5 mg BID PO Last administered on 01/15/17 20:51; Admin Dose 12.5 MG; Start 01/03/17 at 09:00 Clonidine (Catapres) 0.2 mg BID PO Last administered on 01/15/17 20:52; Admin Dose 0.2 MG; Start 01/03/17 at 09:00 Folic Acid (Folic Acid) 1 mg DAILY PO Last administered on 01/15/17 09:31; Admin Dose 1 MG; Start 01/03/17 at 09:00 Hydralazine HCl (Apresoline) 50 mg Q12 PRN PO FOR SBP ABOVE 170 Last administered on 01/09/17 17:26; Admin Dose 50 MG; Start 01/02/17 at 23:00 Labetalol HCl (Normodyne) 100 mg BID PO ; Start 01/03/17 at 09:00; Status Future Hold Multivit/Ca Carb/ B Cmplx/FA/Prenat (Sommer-Samantha) 1 tab DAILY PO Last administered on 01/15/17 09:30; Admin Dose 1 TAB; Start 01/03/17 at 09:00 Nifedipine (Procardia Xl) 60 mg DAILY PO Last administered on 01/15/17 09:30 ; Admin Dose 60 MG; Start 01/03/17 at 09:00 Topiramate (Topamax Sprinkle) 25 mg BID PO Last administered on 01/15/17 20: 50; Admin Dose 25 MG; Start 01/03/17 at 09:00 Apixaban (Eliquis) 5 mg BID PO Last administered on 01/03/17 21:58; Admin Dose 5 MG; Start 01/03/17 at 21:00; Status Future Hold Nifedipine (Procardia Xl) 30 mg HS PO Last administered on 01/15/17 20:51; Admin Dose 30 MG; Start 01/08/17 at 21:00 Apixaban (Eliquis) 10 mg BID PO Last administered on 01/12/17 20:40; Admin Dose 10 MG; Start 01/11/17 at 10:00; Status Future Hold Baclofen (Lioresal) 10 mg TID PO Last administered on 01/15/17 20:51; Admin Dose 10 MG; Start 01/12/17 at 21:00 Metoclopramide HCl (Reglan) 10 mg Q6H PRN IV nausea and vomiting Last administered on 01/15/17 17:22; Admin Dose 10 MG; Start 01/14/17 at 02:30 Trimethobenzamide HCl 200 mg 200 mg Q6H PRN IM NAUSEA AND/OR VOMITING; Start 01/14/17 at 12:00 Ondansetron HCl/ Sodium Chloride (Zofran Inj/NS) 54 ml @ 216 mls/hr Q6H PRN IV NAUSEA AND/OR VOMITING Last administered on 01/15/17 20:32; Admin Dose 216 MLS/HR; Start 01/14/17 at 12:00 Morphine Sulfate (morphine) 1 mg Q8H PRN IV SEVERE PAIN LEVEL 7-10 Last administered on 01/16/17 03:44; Admin Dose 1 MG; Start 01/14/17 at 16:30 Hydralazine HCl (Apresoline) 10 mg Q4H PRN IV SBP GREATER THAN 160 Last administered on 01/16/17 06:33; Admin Dose 10 MG; Start 01/15/17 at 01:00 Diphenhydramine HCl (Benadryl) 25 mg Q6H PRN PO ITCHING; Start 01/15/17 at 10: 00 MICHAEL LEYVA MD Jan 16, 2017 10:11
[2017-01-16] MEDS: NIFEdipine (XL) 60 MG TAB PO SCH (10:21)
[2017-01-16] MEDS: MULTIVIT/CA CARB/B CMPLX/FA TAB PO SCH (10:22)
[2017-01-16] MEDS: ASPIRIN 81 MG TAB PO SCH (10:22)
[2017-01-16] MEDS: FOLIC ACID 1 MG TAB PO SCH (10:23)
[2017-01-16] MEDS ORDERED: LORAZEPAM 2 MG INJ IV PRN (10:30)
--- NOTE | 2017-01-16 10:35 | CONS ---
Date/Time of Note Date/Time of Note DATE: 01/16/17 TIME: 10:31 Assessment/Plan Assessment/Plan Additional Assessment/Plan Probable withdrawal from drugs even though patient has been in hospital for prolonged period of time we suspect that some one in the immediate group of friends have brought her methamphetamine. She is displays all of the signs of withdrawal or continued use to go to routine at this time Ends of diazepam use and atypical antipsychotics will given until she has more clear. Check urine for any other narcotic other than morphine which was administered during his hospitalization. Consultation Date/Type/Reason Admit Date/Time Jan 05, 2017 at 14:32 Type of Consultation: Pain management Hx of Present Illness This is a 31-year-old female was asked to see this patient is extremely agitated in the intensive care unit. She was a rapid response and brought to the intensive care unit secondary to extreme agitation screaming uncontrollable behavior. Is a question whether not patient was given a street drug and is currently driving from the effects of. 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 At this time she is writhing around in bed saying that she has pain but she is unable to localize it. Unable to keep her still enough to ask questions. CNC is at the bedside. Apparently there have been visitors and there is extreme discord her visitors. Patient also has a history of end-stage renal disease on hemodialysis, and left lower extremity DVT. Pain management pain management Past Medical History Medical History: other (Unable to obtain) Social History Smoking Status: Current every day smoker Exam/Review of Systems Vital Signs Vitals Vital Signs Date Time Temp Pulse Resp B/P Pulse Ox O2 Delivery O2 Flow Rate FiO2 01/16/17 06:00 83 21 183/116 100 Room Air 01/16/17 05:00 98.3 Intake and Output 01/15/17 01/15/17 01/16/17 15:00 23:00 07:00 Intake Total 109 ml 898 ml 242 ml Output Total 200 ml 3640 ml 170 ml Balance -91 ml -2742 ml 72 ml Exam Constitutional: other (Screening, disoriented, unable to keep still unable to answer questions coherently) Psych: anxiety, confusion Head: atraumatic, normocephalic Neck: non-tender, supple Respiratory: clear to auscultation, normal air movement Cardiovascular: nl pulses, regular rate and rhythm Results Result Diagram: 12/11/17 0600 01/16/17 0600 Results 24 hrs Laboratory Tests Test 01/15/17 14:55 01/15/17 16:47 01/16/17 00:17 01/16/17 06:00 Activated Partial Thromboplast Time 168.5 *H 70.0 H 108.2 *H 94.4 *H White Blood Count 8.4 Red Blood Count 2.88 L Hemoglobin 8.7 L Hematocrit 26.7 L Mean Corpuscular Volume 92.7 Mean Corpuscular Hemoglobin 30.2 Mean Corpuscular Hemoglobin Concent 32.6 Red Cell Distribution Width 15.2 H Platelet Count 156 Mean Platelet Volume 11.1 H Neutrophils % 71.8 Lymphocytes % 14.9 L Monocytes % 8.9 Eosinophils % 3.4 Basophils % 0.6 Nucleated Red Blood Cells % 0.0 Neutrophils # 6.0 Lymphocytes # 1.3 Monocytes # 0.8 Eosinophils # 0.3 Basophils # 0.1 Nucleated Red Blood Cells # 0.0 Sodium Level 143 Potassium Level 4.1 Chloride Level 101 Carbon Dioxide Level 26 Anion Gap 20 H Blood Urea Nitrogen 67 H Creatinine 11.30 #H Glucose Level 109 Calcium Level 9.6 Phosphorus Level 7.8 H Magnesium Level 2.0 Medications Medications Current Medications Acetaminophen (Tylenol Tab) 650 mg Q6H PRN PO PAIN LEVEL 1-3 OR FEVER; Start 01/02/17 at 23:00 Docusate Sodium (Colace) 100 mg Q12H PRN PO CONSTIPATION Last administered on 01/14/17 07:55; Admin Dose 100 MG; Start 01/02/17 at 23:00 Bisacodyl (Dulcolax) 5 mg DAILY PRN PO CONSTIPATION Last administered on 07:55; Admin Dose 5 MG; Start 01/02/17 at 23:00 Aspirin (Aspirin) 81 mg DAILY PO Last administered on 01/15/17 09:30; Admin Dose 81 MG; Start 01/03/17 at 09:00 Carvedilol (Coreg) 12.5 mg BID PO Last administered on 01/15/17 20:51; Admin Dose 12.5 MG; Start 01/03/17 at 09:00 Clonidine (Catapres) 0.2 mg BID PO Last administered on 01/15/17 20:52; Admin Dose 0.2 MG; Start 01/03/17 at 09:00 Folic Acid (Folic Acid) 1 mg DAILY PO Last administered on 01/15/17 09:31; Admin Dose 1 MG; Start 01/03/17 at 09:00 Hydralazine HCl (Apresoline) 50 mg Q12 PRN PO FOR SBP ABOVE 170 Last administered on 01/09/17 17:26; Admin Dose 50 MG; Start 01/02/17 at 23:00 Labetalol HCl (Normodyne) 100 mg BID PO ; Start 01/03/17 at 09:00; Status Future Hold Multivit/Ca Carb/ B Cmplx/FA/Prenat (Sommer-Samantha) 1 tab DAILY PO Last administered on 01/15/17 09:30; Admin Dose 1 TAB; Start 01/03/17 at 09:00 Nifedipine (Procardia Xl) 60 mg DAILY PO Last administered on 01/15/17 09:30 ; Admin Dose 60 MG; Start 01/03/17 at 09:00 Topiramate (Topamax Sprinkle) 25 mg BID PO Last administered on 01/15/17 20: 50; Admin Dose 25 MG; Start 01/03/17 at 09:00 Apixaban (Eliquis) 5 mg BID PO Last administered on 01/03/17 21:58; Admin Dose 5 MG; Start 01/03/17 at 21:00; Status Future Hold Nifedipine (Procardia Xl) 30 mg HS PO Last administered on 01/15/17 20:51; Admin Dose 30 MG; Start 01/08/17 at 21:00 Apixaban (Eliquis) 10 mg BID PO Last administered on 01/12/17 20:40; Admin Dose 10 MG; Start 01/11/17 at 10:00; Status Future Hold Baclofen (Lioresal) 10 mg TID PO Last administered on 01/15/17 20:51; Admin Dose 10 MG; Start 01/12/17 at 21:00 Metoclopramide HCl (Reglan) 10 mg Q6H PRN IV nausea and vomiting Last administered on 01/15/17 17:22; Admin Dose 10 MG; Start 01/14/17 at 02:30 Trimethobenzamide HCl 200 mg 200 mg Q6H PRN IM NAUSEA AND/OR VOMITING; Start 01/14/17 at 12:00 Ondansetron HCl/ Sodium Chloride (Zofran Inj/NS) 54 ml @ 216 mls/hr Q6H PRN IV NAUSEA AND/OR VOMITING Last administered on 01/15/17 20:32; Admin Dose 216 MLS/HR; Start 01/14/17 at 12:00 Morphine Sulfate (morphine) 1 mg Q8H PRN IV SEVERE PAIN LEVEL 7-10 Last administered on 01/16/17 03:44; Admin Dose 1 MG; Start 01/14/17 at 16:30 Hydralazine HCl (Apresoline) 10 mg Q4H PRN IV SBP GREATER THAN 160 Last administered on 01/16/17 06:33; Admin Dose 10 MG; Start 01/15/17 at 01:00 Diphenhydramine HCl (Benadryl) 25 mg Q6H PRN PO ITCHING; Start 01/15/17 at 10: 00 NATHAN GIRARD Jan 16, 2017 10:35
[2017-01-16] MEDS: TOPIRAMATE SPRINKLE 25 MG CAP PO SCH ×2 (12:09→23:20)
[2017-01-16] MEDS: BACLOFEN 10 MG TAB PO SCH ×3 (12:09→20:46)
[2017-01-16] MEDS: HEPARIN 25000 UNITS/250 ML 250 ML IV SCH (12:21)
[2017-01-16] MEDS ORDERED: OLANZAPINE 10 MG VIAL IM SCH (13:00)
--- NOTE | 2017-01-16 14:32 | CONS ---
Date/Time of Note Date/Time of Note DATE: 01/16/17 TIME: 14:25 Assessment/Plan Assessment/Plan Chief Complaint/Hosp Course IMPRESSION: 1. Preoperative evaluation prior to placement of a peritoneal dialysis catheter.-negative trop x 2/no change on serial ecg's/Nl EF by most recent echo during last admission with no contraindicated valve lesions. Thus ok to proceed to OR for placement of PD catheter at moderate CV risk without further noninvasive evaluation. Now post-op s/p PD catheter placement and removal of femoral catheter 2. Hypertension-labile 3. Left lower extremity deep venous thrombosis. 4. Anemia-s/p transfusion 5. Prior failed chest wall catheters. 6. s/p PD catheter and illiac venoplasty 7. Letharg-secondary to ? oversedation Recc: -Continue coreg/asa/procardia with possible need for further uptitration -HD for volume depletion -Continue heparin -Hold sedatives/gentl e with pain meds -being transferred back to tele Problems: Consultation Date/Type/Reason Admit Date/Time Jan 05, 2017 at 14:32 Initial Consult Date 01/04/2017 Type of Consultation: cardiology Reason for Consultation HTN Referring Provider: JULISSA NI MD Exam/Review of Systems Vital Signs Vitals Vital Signs Date Time Temp Pulse Resp B/P Pulse Ox O2 Delivery O2 Flow Rate FiO2 01/16/17 13:58 66 01/16/17 13:36 97.5 20 139/88 99 01/16/17 06:00 Room Air Intake and Output 01/15/17 01/15/17 01/16/17 14:59 22:59 06:59 Intake Total 106 ml 898 ml 256 ml Output Total 200 ml 3640 ml 170 ml Balance -94 ml -2742 ml 86 ml Exam Review of Systems: CONSTITUTIONAL: No fevers, chills. PULMONARY: No sob CARDIOVASCULAR: No chest pain/palpitations GASTROINTESTINAL: No nausea/vomiting. GENITOURINARY: No hematuria/dysuria. MUSCULOSKELETAL: No myagias/arthalgias. PSYCHIATRIC: The patient denies depression. NEUROLOGIC: No weakness Constitutional: alert Psych: no complaints Head: normocephalic ENMT: mucosa pink and moist Neck: jvd (9-10 cm water), supple Respiratory: diminished breath sounds (at bases/B) Cardiovascular: regular rate and rhythm Gastrointestinal: non-tender, soft Musculoskeletal: muscle weakness (mild generalized) Extremities: pitting pedal edema (L>R) Neurological: lethargic (mildly ) Results Result Diagram: 01/16/17 0600 01/16/17 0600 Results 24 hrs Laboratory Tests Test 01/15/17 14:55 01/15/17 16:47 01/16/17 00:17 01/16/17 06:00 Activated Partial Thromboplast Time 168.5 *H 70.0 H 108.2 *H 94.4 *H White Blood Count 8.4 Red Blood Count 2.88 L Hemoglobin 8.7 L Hematocrit 26.7 L Mean Corpuscular Volume 92.7 Mean Corpuscular Hemoglobin 30.2 Mean Corpuscular Hemoglobin Concent 32.6 Red Cell Distribution Width 15.2 H Platelet Count 156 Mean Platelet Volume 11.1 H Neutrophils % 71.8 Lymphocytes % 14.9 L Monocytes % 8.9 Eosinophils % 3.4 Basophils % 0.6 Nucleated Red Blood Cells % 0.0 Neutrophils # 6.0 Lymphocytes # 1.3 Monocytes # 0.8 Eosinophils # 0.3 Basophils # 0.1 Nucleated Red Blood Cells # 0.0 Sodium Level 143 Potassium Level 4.1 Chloride Level 101 Carbon Dioxide Level 26 Anion Gap 20 H Blood Urea Nitrogen 67 H Creatinine 11.30 #H Glucose Level 109 Calcium Level 9.6 Phosphorus Level 7.8 H Magnesium Level 2.0 Medications Medications Current Medications Acetaminophen (Tylenol Tab) 650 mg Q6H PRN PO PAIN LEVEL 1-3 OR FEVER; Start 01/02/17 at 23:00 Docusate Sodium (Colace) 100 mg Q12H PRN PO CONSTIPATION Last administered on 01/14/17 07:55; Admin Dose 100 MG; Start 01/02/17 at 23:00 Bisacodyl (Dulcolax) 5 mg DAILY PRN PO CONSTIPATION Last administered on 07:55; Admin Dose 5 MG; Start 01/02/17 at 23:00 Aspirin (Aspirin) 81 mg DAILY PO Last administered on 01/16/17 10:22; Admin Dose 81 MG; Start 01/03/17 at 09:00 Carvedilol (Coreg) 12.5 mg BID PO Last administered on 01/16/17 10:22; Admin Dose 12.5 MG; Start 01/03/17 at 09:00 Clonidine (Catapres) 0.2 mg BID PO Last administered on 01/16/17 10:22; Admin Dose 0.2 MG; Start 01/03/17 at 09:00 Folic Acid (Folic Acid) 1 mg DAILY PO Last administered on 01/16/17 10:23; Admin Dose 1 MG; Start 01/03/17 at 09:00 Hydralazine HCl (Apresoline) 50 mg Q12 PRN PO FOR SBP ABOVE 170 Last administered on 01/09/17 17:26; Admin Dose 50 MG; Start 01/02/17 at 23:00 Labetalol HCl (Normodyne) 100 mg BID PO ; Start 01/03/17 at 09:00; Status Future Hold Multivit/Ca Carb/ B Cmplx/FA/Prenat (Sommer-Samantha) 1 tab DAILY PO Last administered on 01/16/17 10:22; Admin Dose 1 TAB; Start 01/03/17 at 09:00 Nifedipine (Procardia Xl) 60 mg DAILY PO Last administered on 01/16/17 10:21 ; Admin Dose 60 MG; Start 01/03/17 at 09:00 Topiramate (Topamax Sprinkle) 25 mg BID PO Last administered on 01/16/17 12: 09; Admin Dose 25 MG; Start 01/03/17 at 09:00 Apixaban (Eliquis) 5 mg BID PO Last administered on 01/03/17 21:58; Admin Dose 5 MG; Start 01/03/17 at 21:00; Status Future Hold Nifedipine (Procardia Xl) 30 mg HS PO Last administered on 01/15/17 20:51; Admin Dose 30 MG; Start 01/08/17 at 21:00 Apixaban (Eliquis) 10 mg BID PO Last administered on 01/12/17 20:40; Admin Dose 10 MG; Start 01/11/17 at 10:00; Status Future Hold Baclofen (Lioresal) 10 mg TID PO Last administered on 01/16/17 12:09; Admin Dose 10 MG; Start 01/12/17 at 21:00 Metoclopramide HCl (Reglan) 10 mg Q6H PRN IV nausea and vomiting Last administered on 01/15/17 17:22; Admin Dose 10 MG; Start 01/14/17 at 02:30 Trimethobenzamide HCl 200 mg 200 mg Q6H PRN IM NAUSEA AND/OR VOMITING; Start 01/14/17 at 12:00 Ondansetron HCl/ Sodium Chloride (Zofran Inj/NS) 54 ml @ 216 mls/hr Q6H PRN IV NAUSEA AND/OR VOMITING Last administered on 01/15/17t 20:32; Admin Dose 216 MLS/HR; Start 01/14/17 at 12:00 Lorazepam (Ativan) 2 mg Q4 PRN IV AGITATION; Start 01/16/17 at 10:30 Risperidone (Risperdal) 0.5 mg BID PO ; Start 01/16/17 at 21:00 Lorazepam (Ativan) 1 mg Q4 PRN IV AGITATION/ANXIETY; Start 01/16/17 at 10:30 ETHAN MCKINLEY Jan 16, 2017 14:32
--- NOTE | 2017-01-16 14:41 | PN ---
Date/Time of Note Date/Time of Note DATE: 01/16/17 TIME: 14:41 Assessment/Plan VTE Prophylaxis VTE Prophylaxis Intervention: SCD's Lines/Catheters IV Catheter Type (from Nrsg): jennifer catheter Urinary Cath still in place: No Assessment/Plan Assessment/Plan 31 yo F with ESRD on HD, recent admission for MSSA CLABSI/tunnel infection, found to have large LLE DVT at that time readmitted for worsening LLE pain. Imaging with worsening of clot despite anticoagulation. #LLE DVT also superficial thrombophlebitis: management as per vascular surgery. Per his rec, increased Eliquis dose to 5 mg BID. currently on heparin drip pending procedure FEMORAL CATHETER TO BE REMOVED. Per notes pt requesting general anesthesia for this. Vascular surgery coordinating #ESRD: nephrology on cs for HD-->PD CATHETER PLACED 01.05 #pain intolerance: cont current pain regimen, may need to reach out to her outpatient pain medicine specialist. CM consult to help with PD arrangements, assistance appricated Exam/Review of Systems Vital Signs Vitals Vital Signs Date Time Temp Pulse Resp B/P Pulse Ox O2 Delivery O2 Flow Rate FiO2 01/16/17 13:58 66 01/16/17 13:36 97.5 20 139/88 99 01/16/17 06:00 Room Air Intake and Output 01/15/17 01/15/17 01/16/17 14:59 22:59 06:59 Intake Total 106 ml 898 ml 256 ml Output Total 200 ml 3640 ml 170 ml Balance -94 ml -2742 ml 86 ml Results Result Diagram: 01/16/17 0600 01/16/17 0600 Results 24 hrs Laboratory Tests Test 01/15/17 14:55 01/15/17 16:47 01/16/17 00:17 01/16/17 06:00 Activated Partial Thromboplast Time 168.5 *H 70.0 H 108.2 *H 94.4 *H White Blood Count 8.4 Red Blood Count 2.88 L Hemoglobin 8.7 L Hematocrit 26.7 L Mean Corpuscular Volume 92.7 Mean Corpuscular Hemoglobin 30.2 Mean Corpuscular Hemoglobin Concent 32.6 Red Cell Distribution Width 15.2 H Platelet Count 156 Mean Platelet Volume 11.1 H Neutrophils % 71.8 Lymphocytes % 14.9 L Monocytes % 8.9 Eosinophils % 3.4 Basophils % 0.6 Nucleated Red Blood Cells % 0.0 Neutrophils # 6.0 Lymphocytes # 1.3 Monocytes # 0.8 Eosinophils # 0.3 Basophils # 0.1 Nucleated Red Blood Cells # 0.0 Sodium Level 143 Potassium Level 4.1 Chloride Level 101 Carbon Dioxide Level 26 Anion Gap 20 H Blood Urea Nitrogen 67 H Creatinine 11.30 #H Glucose Level 109 Calcium Level 9.6 Phosphorus Level 7.8 H Magnesium Level 2.0 Medications Medications Current Medications Acetaminophen (Tylenol Tab) 650 mg Q6H PRN PO PAIN LEVEL 1-3 OR FEVER; Start 01/02/17 at 23:00 Docusate Sodium (Colace) 100 mg Q12H PRN PO CONSTIPATION Last administered on 01/14/17 07:55; Admin Dose 100 MG; Start 01/02/17 at 23:00 Bisacodyl (Dulcolax) 5 mg DAILY PRN PO CONSTIPATION Last administered on 07:55; Admin Dose 5 MG; Start 01/02/17 at 23:00 Aspirin (Aspirin) 81 mg DAILY PO Last administered on 01/16/17 10:22; Admin Dose 81 MG; Start 01/03/17 at 09:00 Carvedilol (Coreg) 12.5 mg BID PO Last administered on 01/16/17 10:22; Admin Dose 12.5 MG; Start 01/03/17 at 09:00 Clonidine (Catapres) 0.2 mg BID PO Last administered on 01/16/17 10:22; Admin Dose 0.2 MG; Start 01/03/17 at 09:00 Folic Acid (Folic Acid) 1 mg DAILY PO Last administered on 01/16/17 10:23; Admin Dose 1 MG; Start 01/03/17 at 09:00 Hydralazine HCl (Apresoline) 50 mg Q12 PRN PO FOR SBP ABOVE 170 Last administered on 01/09/17 17:26; Admin Dose 50 MG; Start 01/02/17 at 23:00 Labetalol HCl (Normodyne) 100 mg BID PO ; Start 01/03/17 at 09:00; Status Future Hold Multivit/Ca Carb/ B Cmplx/FA/Prenat (Sommer-Samantha) 1 tab DAILY PO Last administered on 01/16/17 10:22; Admin Dose 1 TAB; Start 01/03/17 at 09:00 Nifedipine (Procardia Xl) 60 mg DAILY PO Last administered on 01/16/17 10:21 ; Admin Dose 60 MG; Start 01/03/17 at 09:00 Topiramate (Topamax Sprinkle) 25 mg BID PO Last administered on 01/16/17 12: 09; Admin Dose 25 MG; Start 01/03/17 at 09:00 Apixaban (Eliquis) 5 mg BID PO Last administered on 01/03/17 21:58; Admin Dose 5 MG; Start 01/03/17 at 21:00; Status Future Hold Nifedipine (Procardia Xl) 30 mg HS PO Last administered on 01/15/17 20:51; Admin Dose 30 MG; Start 01/08/17 at 21:00 Apixaban (Eliquis) 10 mg BID PO Last administered on 01/12/17 20:40; Admin Dose 10 MG; Start 01/11/17 at 10:00; Status Future Hold Baclofen (Lioresal) 10 mg TID PO Last administered on 01/16/17 12:09; Admin Dose 10 MG; Start 01/12/17 at 21:00 Metoclopramide HCl (Reglan) 10 mg Q6H PRN IV nausea and vomiting Last administered on 01/15/17 17:22; Admin Dose 10 MG; Start 01/14/17 at 02:30 Trimethobenzamide HCl 200 mg 200 mg Q6H PRN IM NAUSEA AND/OR VOMITING; Start 01/14/17 at 12:00 Ondansetron HCl/ Sodium Chloride (Zofran Inj/NS) 54 ml @ 216 mls/hr Q6H PRN IV NAUSEA AND/OR VOMITING Last administered on 01/15/17 20:32; Admin Dose 216 MLS/HR; Start 01/14/17 at 12:00 Lorazepam (Ativan) 2 mg Q4 PRN IV AGITATION; Start 01/16/17 at 10:30 Risperidone (Risperdal) 0.5 mg BID PO ; Start 01/16/17 at 21:00 Lorazepam (Ativan) 1 mg Q4 PRN IV AGITATION/ANXIETY; Start 01/16/17 at 10:30 BHARAT BLACK MD Jan 16, 2017 14:41
--- NOTE | 2017-01-16 14:48 | PN ---
Date/Time of Note Date/Time of Note DATE: 01/16/17 TIME: 14:45 Assessment/Plan VTE Prophylaxis VTE Prophylaxis Intervention: SCD's Lines/Catheters IV Catheter Type (from Nrsg): jennifer catheter Urinary Cath still in place: No Assessment/Plan Assessment/Plan 31 yo F with ESRD on HD, recent admission for MSSA CLABSI/tunnel infection, found to have large LLE DVT at that time readmitted for worsening LLE pain. Imaging with worsening of clot despite anticoagulation. Pt now sp PD catheter placement, and left groin permAcath removal and iliac venoplasty and R HD line placement. Hospitalization has been complicated by acute encephalopathy 12.9, thought to be opiate mediated. per notes there is concern that a family member or friend had brought drugs to the patient #LLE DVT also superficial thrombophlebitis: management as per vascular surgery. Per his rec, increased Eliquis dose to 10 mg BID. sp L femoral line removal and new R HD line placement #ESRD: nephrology on cs for HD-->PD CATHETER PLACED 11.30 #pain intolerance: pain management consult. Concern raised in notes that pt may have gotten sedated 12.9 from medications brought by friends/family. CURES report only shows 30 norcos rx'ed in September as the control C2 rx pt has gotten in the past 6 mos from a ER physician (Sergio Harris) pain management on consult CM consult to help with PD arrangements, assistance appreciated transfer out of ICU Subjective 24 Hr Interval Summary Free Text/Dictation pt sleeping soundly when i went to check in on her this AM. She had a visitor who had his sweatshirt ibrahim aperture tied above his head and was also sleeping very soundly. Approximately 30 minutes later when I was still in the ICU pt noted to be shouting complaining of all over pain to her nurse Exam/Review of Systems Vital Signs Vitals Vital Signs Date Time Temp Pulse Resp B/P Pulse Ox O2 Delivery O2 Flow Rate FiO2 01/16/17 13:58 66 01/16/17 13:36 97.5 20 139/88 99 01/16/17 06:00 Room Air Intake and Output 01/15/17 01/15/17 01/16/17 14:59 22:59 06:59 Intake Total 106 ml 898 ml 256 ml Output Total 200 ml 3640 ml 170 ml Balance -94 ml -2742 ml 86 ml Exam sleeping no mrg lungs clear no abd distension no rashes Results Result Diagram: 01/16/17 0600 01/16/17 0600 Results 24 hrs Laboratory Tests Test 01/15/17 14:55 01/15/17 16:47 01/16/17 00:17 01/16/17 06:00 Activated Partial Thromboplast Time 168.5 *H 70.0 H 108.2 *H 94.4 *H White Blood Count 8.4 Red Blood Count 2.88 L Hemoglobin 8.7 L Hematocrit 26.7 L Mean Corpuscular Volume 92.7 Mean Corpuscular Hemoglobin 30.2 Mean Corpuscular Hemoglobin Concent 32.6 Red Cell Distribution Width 15.2 H Platelet Count 156 Mean Platelet Volume 11.1 H Neutrophils % 71.8 Lymphocytes % 14.9 L Monocytes % 8.9 Eosinophils % 3.4 Basophils % 0.6 Nucleated Red Blood Cells % 0.0 Neutrophils # 6.0 Lymphocytes # 1.3 Monocytes # 0.8 Eosinophils # 0.3 Basophils # 0.1 Nucleated Red Blood Cells # 0.0 Sodium Level 143 Potassium Level 4.1 Chloride Level 101 Carbon Dioxide Level 26 Anion Gap 20 H Blood Urea Nitrogen 67 H Creatinine 11.30 #H Glucose Level 109 Calcium Level 9.6 Phosphorus Level 7.8 H Magnesium Level 2.0 Medications Medications Current Medications Acetaminophen (Tylenol Tab) 650 mg Q6H PRN PO PAIN LEVEL 1-3 OR FEVER; Start 01/02/17 at 23:00 Docusate Sodium (Colace) 100 mg Q12H PRN PO CONSTIPATION Last administered on 01/14/17 07:55; Admin Dose 100 MG; Start 01/02/17 at 23:00 Bisacodyl (Dulcolax) 5 mg DAILY PRN PO CONSTIPATION Last administered on 07:55; Admin Dose 5 MG; Start 01/02/17 at 23:00 Aspirin (Aspirin) 81 mg DAILY PO Last administered on 01/16/17 10:22; Admin Dose 81 MG; Start 01/03/17 at 09:00 Carvedilol (Coreg) 12.5 mg BID PO Last administered on 01/16/17 10:22; Admin Dose 12.5 MG; Start 01/03/17 at 09:00 Clonidine (Catapres) 0.2 mg BID PO Last administered on 01/16/17 10:22; Admin Dose 0.2 MG; Start 01/03/17 at 09:00 Folic Acid (Folic Acid) 1 mg DAILY PO Last administered on 01/16/17 10:23; Admin Dose 1 MG; Start 01/03/17 at 09:00 Hydralazine HCl (Apresoline) 50 mg Q12 PRN PO FOR SBP ABOVE 170 Last administered on 01/09/17 17:26; Admin Dose 50 MG; Start 01/02/17 at 23:00 Labetalol HCl (Normodyne) 100 mg BID PO ; Start 01/03/17 at 09:00; Status Future Hold Multivit/Ca Carb/ B Cmplx/FA/Prenat (Sommer-Samantha) 1 tab DAILY PO Last administered on 01/16/17 10:22; Admin Dose 1 TAB; Start 01/03/17 at 09:00 Nifedipine (Procardia Xl) 60 mg DAILY PO Last administered on 01/16/17 10:21 ; Admin Dose 60 MG; Start 01/03/17 at 09:00 Topiramate (Topamax Sprinkle) 25 mg BID PO Last administered on 01/16/17 12: 09; Admin Dose 25 MG; Start 01/03/17 at 09:00 Apixaban (Eliquis) 5 mg BID PO Last administered on 01/03/17 21:58; Admin Dose 5 MG; Start 01/03/17 at 21:00; Status Future Hold Nifedipine (Procardia Xl) 30 mg HS PO Last administered on 01/15/17 20:51; Admin Dose 30 MG; Start 01/08/17 at 21:00 Apixaban (Eliquis) 10 mg BID PO Last administered on 01/12/17 20:40; Admin Dose 10 MG; Start 01/11/17 at 10:00; Status Future Hold Baclofen (Lioresal) 10 mg TID PO Last administered on 01/16/17 12:09; Admin Dose 10 MG; Start 01/12/17 at 21:00 Metoclopramide HCl (Reglan) 10 mg Q6H PRN IV nausea and vomiting Last administered on 01/15/17 17:22; Admin Dose 10 MG; Start 01/14/17 at 02:30 Trimethobenzamide HCl 200 mg 200 mg Q6H PRN IM NAUSEA AND/OR VOMITING; Start 01/14/17 at 12:00 Ondansetron HCl/ Sodium Chloride (Zofran Inj/NS) 54 ml @ 216 mls/hr Q6H PRN IV NAUSEA AND/OR VOMITING Last administered on 01/15/17t 20:32; Admin Dose 216 MLS/HR; Start 01/14/17 at 12:00 Lorazepam (Ativan) 2 mg Q4 PRN IV AGITATION; Start 01/16/17 at 10:30 Risperidone (Risperdal) 0.5 mg BID PO ; Start 01/16/17 at 21:00 Lorazepam (Ativan) 1 mg Q4 PRN IV AGITATION/ANXIETY; Start 01/16/17 at 10:30 BHARAT BLACK MD Jan 16, 2017 14:47
[2017-01-16] MEDS: RISPERIDONE 0.25 MG TAB PO SCH (20:44)
[2017-01-16] MEDS: NIFEdipine (XL) 30 MG TAB PO SCH (20:46)
[2017-01-16] MEDS: APIXABAN 5 MG TABLET PO SCH (20:47)
[2017-01-16] MEDS: LORAZEPAM 2 MG INJ IV PRN ×2 (20:49→21:06)
[2017-01-17] VITALS (20 sets, daily range): BP systolic 120–213; BP diastolic 68–127; PULSE 71–97; RESP 16–20
[2017-01-17] MEDS: SEVELAMER 800 MG TAB PO SCH ×3 (07:58→16:40)
[2017-01-17] MEDS: ASPIRIN 81 MG TAB PO SCH (07:58)
[2017-01-17] MEDS: FOLIC ACID 1 MG TAB PO SCH (07:58)
[2017-01-17] MEDS: DOCUSATE SODIUM 100 MG CAP PO PRN (07:58)
[2017-01-17] MEDS: APIXABAN 5 MG TABLET PO SCH ×2 (07:59→20:32)
[2017-01-17] MEDS: MULTIVIT/CA CARB/B CMPLX/FA TAB PO SCH (07:59)
[2017-01-17] MEDS: BACLOFEN 10 MG TAB PO SCH ×3 (07:59→20:32)
[2017-01-17] MEDS: BISACODYL (EC) 5 MG TAB PO PRN (07:59)
[2017-01-17] MEDS: TOPIRAMATE SPRINKLE 25 MG CAP PO SCH ×2 (07:59→20:33)
[2017-01-17] MEDS: NIFEdipine (XL) 60 MG TAB PO SCH (08:00)
[2017-01-17] MEDS: RISPERIDONE 0.25 MG TAB PO SCH (08:00)
[2017-01-17 08:16] LABS: BASOPHIL # 0.1 10^3/ul (0.0-0.1); BASOPHILS % 0.7 % (0.0-2.0); EOSINOPHILS # 0.3 10^3/ul (0.0-0.5); EOSINOPHILS % 4.4 % (0.0-7.0); LYMPHOCYTES # 1.3 10^3/ul (0.8-2.9); LYMPHOCYTES % 18.5 % (15.0-51.0); MEAN CORPUSCULAR HEMOGLOBIN 29.7 pg (29.0-33.0); MEAN CORPUSCULAR VOLUME 92.9 fl (82.0-101.0); MONOCYTE # 0.7 10^3/ul (0.3-0.9); MONOCYTES % 9.3 % (0.0-11.0); NEUTROPHIL # 4.8 10^3/ul (1.6-7.5); NEUTROPHILS % 66.8 % (39.0-77.0); PLATELET COUNT 146 10^3/UL (140-415); RED BLOOD COUNT 2.69 10^6/ul (4.20-5.40); RED CELL DISTRIBUTION WIDTH 15.3 % (11.5-14.5); WHITE BLOOD COUNT 7.1 10^3/ul (4.8-10.8)
[2017-01-17 08:40] LABS: CALCIUM 9.5 mg/dl (8.4-10.2); CREATININE 13.04 mg/dl (0.44-1.00); POTASSIUM 4.4 mmol/L (3.5-5.1)
--- NOTE | 2017-01-17 09:08 | CONS ---
Date/Time of Note Date/Time of Note DATE: 01/17/17 TIME: 09:06 Assessment/Plan Assessment/Plan Additional Assessment/Plan 1. Preoperative evaluation prior to placement of a peritoneal dialysis catheter.-negative trop x 2/no change on serial ecg's/Nl EF by most recent echo during last admission with no contraindicated valve lesions. Thus ok to proceed to OR for placement of PD catheter at moderate CV risk without further noninvasive evaluation. Now post-op s/p PD catheter placement and removal of femoral catheter - stable now. 2. Hypertension-labile - overall, reasonably controlled. 3. Left lower extremity deep venous thrombosis- anti-coag as OK per vascular team 4. Anemia-s/p transfusion - no active bleeding now 5. Prior failed chest wall catheters. 6. s/p PD catheter and illiac venoplasty 7. Letharg-secondary to ? oversedation Consultation Date/Type/Reason Admit Date/Time Jan 05, 2017 at 14:32 Type of Consultation: cardiology Referring Provider: JULISSA NI MD 24 HR Interval Summary Free Text/Dictation NO acute events - BP stable - in reasonable fluid status ROS: No fever, no chills, no nausea, no vomiting, no diarrhea/constipation No recent weight changes No chest pain, no PND, no orthopnea No dizziness, blurred vision No thirst, no heat or cold intolerance Exam/Review of Systems Vital Signs Vitals Vital Signs Date Time Temp Pulse Resp B/P Pulse Ox O2 Delivery O2 Flow Rate FiO2 01/17/17 08:15 71 01/17/17 07:25 98.8 18 155/104 98 01/16/17 20:00 Bag Valve Mask Intake and Output 01/16/17 01/16/17 01/17/17 14:59 22:59 06:59 Intake Total 200 ml 70 ml Balance 200 ml 70 ml Exam General: WN/WD/NAD, AOx 3 HEENT: Unicetric/atraumatic/EOMI (follow commands) NECK: JVD elevated, no thyromegaly Lymph: no lymphadenopathy HEART: regular with no S3, II/ systolic murmur at apex LUNGS: Coarse sounds ABD: soft, NT, ND, +BS : Intact Neuro: non focal SKIN: chronic changes EXT: trace edema Results Result Diagram: 01/17/1732 01/17/17 0732 Results 24 hrs Laboratory Tests Test 01/16/17 14:09 01/17/17 07:32 01/17/17 07:59 Activated Partial Thromboplast Time 137.4 *H White Blood Count 7.1 Red Blood Count 2.69 L Hemoglobin 8.0 L Hematocrit 25.0 L Mean Corpuscular Volume 92.9 Mean Corpuscular Hemoglobin 29.7 Mean Corpuscular Hemoglobin Concent 32.0 Red Cell Distribution Width 15.3 H Platelet Count 146 Mean Platelet Volume 11.0 H Neutrophils % 66.8 Lymphocytes % 18.5 Monocytes % 9.3 Eosinophils % 4.4 Basophils % 0.7 Nucleated Red Blood Cells % 0.0 Neutrophils # 4.8 Lymphocytes # 1.3 Monocytes # 0.7 Eosinophils # 0.3 Basophils # 0.1 Nucleated Red Blood Cells # 0.0 Sodium Level 143 Potassium Level 4.4 Chloride Level 104 Carbon Dioxide Level 23 Anion Gap 20 H Blood Urea Nitrogen 79 H Creatinine 13.04 H Glucose Level 92 Calcium Level 9.5 Lab Scanned Report BLOOD TRANSFUSION Medications Medications Current Medications Acetaminophen (Tylenol Tab) 650 mg Q6H PRN PO PAIN LEVEL 1-3 OR FEVER; Start 01/02/17 at 23:00 Docusate Sodium (Colace) 100 mg Q12H PRN PO CONSTIPATION Last administered on 01/17/17 07:58; Admin Dose 100 MG; Start 01/02/17 at 23:00 Bisacodyl (Dulcolax) 5 mg DAILY PRN PO CONSTIPATION Last administered on 07:59; Admin Dose 5 MG; Start 01/02/17 at 23:00 Aspirin (Aspirin) 81 mg DAILY PO Last administered on 01/17/17 07:58; Admin Dose 81 MG; Start 01/03/17 at 09:00 Carvedilol (Coreg) 12.5 mg BID PO Last administered on 01/17/17 07:59; Admin Dose 12.5 MG; Start 01/03/17 at 09:00 Clonidine (Catapres) 0.2 mg BID PO Last administered on 01/17/17 08:00; Admin Dose 0.2 MG; Start 01/03/17 at 09:00 Folic Acid (Folic Acid) 1 mg DAILY PO Last administered on 01/17/17 07:58; Admin Dose 1 MG; Start 01/03/17 at 09:00 Hydralazine HCl (Apresoline) 50 mg Q12 PRN PO FOR SBP ABOVE 170 Last administered on 01/09/17 17:26; Admin Dose 50 MG; Start 01/02/17 at 23:00 Labetalol HCl (Normodyne) 100 mg BID PO ; Start 01/03/17 at 09:00; Status Future Hold Multivit/Ca Carb/ B Cmplx/FA/Prenat (Sommer-Samantha) 1 tab DAILY PO Last administered on 01/17/17 07:59; Admin Dose 1 TAB; Start 01/03/17 at 09:00 Nifedipine (Procardia Xl) 60 mg DAILY PO Last administered on 01/17/17 08:00 ; Admin Dose 60 MG; Start 01/03/17 at 09:00 Topiramate (Topamax Sprinkle) 25 mg BID PO Last administered on 01/17/17 07: 59; Admin Dose 25 MG; Start 01/03/17 at 09:00 Nifedipine (Procardia Xl) 30 mg HS PO Last administered on 01/16/17 20:46; Admin Dose 30 MG; Start 01/08/17 at 21:00 Apixaban (Eliquis) 10 mg BID PO Last administered on 01/17/17 07:59; Admin Dose 10 MG; Start 01/11/17 at 10:00; Status Future hold Baclofen (Lioresal) 10 mg TID PO Last administered on 01/17/17 07:59; Admin Dose 10 MG; Start 01/12/17 at 21:00 Metoclopramide HCl (Reglan) 10 mg Q6H PRN IV nausea and vomiting Last administered on 01/15/17 17:22; Admin Dose 10 MG; Start 01/14/17 at 02:30 Trimethobenzamide HCl 200 mg 200 mg Q6H PRN IM NAUSEA AND/OR VOMITING; Start 01/14/17 at 12:00 Ondansetron HCl/ Sodium Chloride (Zofran Inj/NS) 54 ml @ 216 mls/hr Q6H PRN IV NAUSEA AND/OR VOMITING Last administered on 01/15/17 20:32; Admin Dose 216 MLS/HR; Start 01/14/17 at 12:00 Lorazepam (Ativan) 2 mg Q4 PRN IV AGITATION Last administered on 01/16/17 21: 06; Admin Dose 2 MG; Start 01/16/17 at 10:30 Risperidone (Risperdal) 0.5 mg BID PO Last administered on 01/17/17 08:00; Admin Dose 0.5 MG; Start 01/16/17 at 21:00 Lorazepam (Ativan) 1 mg Q4 PRN IV AGITATION/ANXIETY; Start 01/16/17 at 10:30 CARINA RITTER MD Jan 17, 2017 09:08
[2017-01-17] MEDS ORDERED: NALOXONE (0.4 MG/ML) INJ ONE (11:06)
--- NOTE | 2017-01-17 11:08 | CONS ---
Date/Time of Note Date/Time of Note DATE: 01/17/17 TIME: 11:08 Assessment/Plan Assessment/Plan Chief Complaint/Hosp Course 31 Y/O withh 1. ESRD with hyperkalemia, better s/p Stat HD X last 2 days from rt groin catheter 2. Acute deep venous thrombosis of the left lower extremity on heparin drip 3. Chronic pain. 4. Anemia. 5. Hypertension. 6. Vasculopathy. 7. uremia with pruritus. 8. s/p pd cath placement Recs - HD TODAY ; will reassess - Pt will need out pt PD trainiG at [facility] - continue hd for now, WILL need permacath - Drug withdrawal in hospital, consider drugs being brought by family - c/w Renagel - Renal diet - Bp control with Nifedipine 30/60, Coreg 12.5 bid and clonidine 0.2 bid Problems: Consultation Date/Type/Reason Admit Date/Time Jan 05, 2017 at 14:32 Type of Consultation: Renal Referring Provider: JULISSA NI MD 24 HR Interval Summary Free Text/Dictation Pt is confused today tremors today Exam/Review of Systems Vital Signs Vitals Vital Signs Date Time Temp Pulse Resp B/P Pulse Ox O2 Delivery O2 Flow Rate FiO2 01/17/17 08:15 71 01/17/17 07:25 98.8 18 155/104 98 01/16/17 20:00 Bag Valve Mask Intake and Output 01/16/17 01/16/17 01/17/17 14:59 22:59 06:59 Intake Total 200 ml 70 ml Balance 200 ml 70 ml Exam Constitutional: confused Head: normocephalic Neck: supple Respiratory: diminished breath sounds Cardiovascular: regular rate and rhythm Gastrointestinal: soft Abdomen : PD cath in LLQ Musculoskeletal: muscle weakness, swelling (left leg) Results Result Diagram: 01/17/17 0732 01/17/17 0732 Results 24 hrs Laboratory Tests Test 01/16/17 14:09 01/17/17 07:32 01/17/17 07:59 Activated Partial Thromboplast Time 137.4 *H White Blood Count 7.1 Red Blood Count 2.69 L Hemoglobin 8.0 L Hematocrit 25.0 L Mean Corpuscular Volume 92.9 Mean Corpuscular Hemoglobin 29.7 Mean Corpuscular Hemoglobin Concent 32.0 Red Cell Distribution Width 15.3 H Platelet Count 146 Mean Platelet Volume 11.0 H Neutrophils % 66.8 Lymphocytes % 18.5 Monocytes % 9.3 Eosinophils % 4.4 Basophils % 0.7 Nucleated Red Blood Cells % 0.0 Neutrophils # 4.8 Lymphocytes # 1.3 Monocytes # 0.7 Eosinophils # 0.3 Basophils # 0.1 Nucleated Red Blood Cells # 0.0 Sodium Level 143 Potassium Level 4.4 Chloride Level 104 Carbon Dioxide Level 23 Anion Gap 20 H Blood Urea Nitrogen 79 H Creatinine 13.04 H Glucose Level 92 Calcium Level 9.5 Lab Scanned Report BLOOD TRANSFUSION Medications Medications Current Medications Acetaminophen (Tylenol Tab) 650 mg Q6H PRN PO PAIN LEVEL 1-3 OR FEVER; Start 01/02/17 at 23:00 Docusate Sodium (Colace) 100 mg Q12H PRN PO CONSTIPATION Last administered on 01/17/17 07:58; Admin Dose 100 MG; Start 01/02/17 at 23:00 Bisacodyl (Dulcolax) 5 mg DAILY PRN PO CONSTIPATION Last administered on 07:59; Admin Dose 5 MG; Start 01/02/17 at 23:00 Aspirin (Aspirin) 81 mg DAILY PO Last administered on 01/17/17 07:58; Admin Dose 81 MG; Start 01/03/17 at 09:00 Carvedilol (Coreg) 12.5 mg BID PO Last administered on 01/17/17 07:59; Admin Dose 12.5 MG; Start 01/03/17 at 09:00 Clonidine (Catapres) 0.2 mg BID PO Last administered on 01/17/17 08:00; Admin Dose 0.2 MG; Start 01/03/17 at 09:00 Folic Acid (Folic Acid) 1 mg DAILY PO Last administered on 01/17/17 07:58; Admin Dose 1 MG; Start 01/03/17 at 09:00 Hydralazine HCl (Apresoline) 50 mg Q12 PRN PO FOR SBP ABOVE 170 Last administered on 01/09/17 17:26; Admin Dose 50 MG; Start 01/02/17 at 23:00 Labetalol HCl (Normodyne) 100 mg BID PO ; Start 01/03/17 at 09:00; Status Future Hold Multivit/Ca Carb/ B Cmplx/FA/Prenat (Sommer-Samantha) 1 tab DAILY PO Last administered on 01/17/17 07:59; Admin Dose 1 TAB; Start 01/03/17 at 09:00 Nifedipine (Procardia Xl) 60 mg DAILY PO Last administered on 01/17/17 08:00 ; Admin Dose 60 MG; Start 01/03/17 at 09:00 Topiramate (Topamax Sprinkle) 25 mg BID PO Last administered on 01/17/17 07: 59; Admin Dose 25 MG; Start 01/03/17 at 09:00 Nifedipine (Procardia Xl) 30 mg HS PO Last administered on 01/16/17 20:46; Admin Dose 30 MG; Start 01/08/17 at 21:00 Apixaban (Eliquis) 10 mg BID PO Last administered on 01/17/17 07:59; Admin Dose 10 MG; Start 01/11/17 at 10:00; Status Future hold Baclofen (Lioresal) 10 mg TID PO Last administered on 01/17/17 07:59; Admin Dose 10 MG; Start 01/12/17 at 21:00 Metoclopramide HCl (Reglan) 10 mg Q6H PRN IV nausea and vomiting Last administered on 01/15/17 17:22; Admin Dose 10 MG; Start 01/14/17 at 02:30 Trimethobenzamide HCl 200 mg 200 mg Q6H PRN IM NAUSEA AND/OR VOMITING; Start 01/14/17 at 12:00 Ondansetron HCl/ Sodium Chloride (Zofran Inj/NS) 54 ml @ 216 mls/hr Q6H PRN IV NAUSEA AND/OR VOMITING Last administered on 01/15/17 20:32; Admin Dose 216 MLS/HR; Start 01/14/17 at 12:00 Lorazepam (Ativan) 2 mg Q4 PRN IV AGITATION Last administered on 01/16/17 21: 06; Admin Dose 2 MG; Start 01/16/17 at 10:30 Risperidone (Risperdal) 0.5 mg BID PO Last administered on 01/17/17 08:00; Admin Dose 0.5 MG; Start 01/16/17 at 21:00 Lorazepam (Ativan) 1 mg Q4 PRN IV AGITATION/ANXIETY; Start 01/16/17 at 10:30 Naloxone HCl (Narcan) 0.4 mg ONCE ONCE IV ; Start 01/17/17 at 11:30; Stop 01/22 at 11:31; Status UNV MICHAEL LEYVA MD Jan 17, 2017 11:08
[2017-01-17] MEDS ORDERED: NALOXONE (0.4 MG/ML) INJ IV ONE (11:30)
--- NOTE | 2017-01-17 12:12 | CONS ---
Date/Time of Note Date/Time of Note DATE: 01/17/17 TIME: 12:10 Assessment/Plan Assessment/Plan Chief Complaint/Hosp Course She is much better today according to reymundo and her boyfriend at the bedside. Apparently she has been up semi-ambulatory and has not been screaming out as much as yesterday. Currently been dialyzed. Problems: Additional Assessment/Plan Lower dose of Ativan Discontinue Risperdal changed to Seroquel 25 mg twice daily. Consultation Date/Type/Reason Admit Date/Time Jan 05, 2017 at 14:32 Hx of Present Illness This is a 31-year-old female was asked to see this patient is extremely agitated in the intensive care unit. She was a rapid response and brought to the intensive care unit secondary to extreme agitation screaming uncontrollable behavior. Is a question whether not patient was given a street drug and is currently driving from the effects of. 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 At this time she is writhing around in bed saying that she has pain but she is unable to localize it. Unable to keep her still enough to ask questions. CNC is at the bedside. Apparently there have been visitors and there is extreme discord her visitors. Patient also has a history of end-stage renal disease on hemodialysis, and left lower extremity DVT. Pain management pain management Past Medical History Medical History: other (Unable to obtain) Social History Smoking Status: Current every day smoker Exam/Review of Systems Vital Signs Vitals Vital Signs Date Time Temp Pulse Resp B/P Pulse Ox O2 Delivery O2 Flow Rate FiO2 01/17/17 11:54 98.1 79 18 191/125 98 01/16/17 20:00 Bag Valve Mask Intake and Output 01/16/17 01/16/17 01/17/17 15:00 23:00 07:00 Intake Total 200 ml 70 ml Balance 200 ml 70 ml Exam Neurological: POLICY ADVISOR II-XII intact, nl mental status, nl speech, nl strength, other (Grossly intact) Results Result Diagram: 01/17/17 0732 01/17/17 0732 Results 24 hrs Laboratory Tests Test 01/16/17 14:09 01/17/17 07:32 01/17/17 07:59 Activated Partial Thromboplast Time 137.4 *H White Blood Count 7.1 Red Blood Count 2.69 L Hemoglobin 8.0 L Hematocrit 25.0 L Mean Corpuscular Volume 92.9 Mean Corpuscular Hemoglobin 29.7 Mean Corpuscular Hemoglobin Concent 32.0 Red Cell Distribution Width 15.3 H Platelet Count 146 Mean Platelet Volume 11.0 H Neutrophils % 66.8 Lymphocytes % 18.5 Monocytes % 9.3 Eosinophils % 4.4 Basophils % 0.7 Nucleated Red Blood Cells % 0.0 Neutrophils # 4.8 Lymphocytes # 1.3 Monocytes # 0.7 Eosinophils # 0.3 Basophils # 0.1 Nucleated Red Blood Cells # 0.0 Sodium Level 143 Potassium Level 4.4 Chloride Level 104 Carbon Dioxide Level 23 Anion Gap 20 H Blood Urea Nitrogen 79 H Creatinine 13.04 H Glucose Level 92 Calcium Level 9.5 Lab Scanned Report BLOOD TRANSFUSION Medications Medications Current Medications Acetaminophen (Tylenol Tab) 650 mg Q6H PRN PO PAIN LEVEL 1-3 OR FEVER; Start 01/02/17 at 23:00 Docusate Sodium (Colace) 100 mg Q12H PRN PO CONSTIPATION Last administered on 01/17/17 07:58; Admin Dose 100 MG; Start 01/02/17 at 23:00 Bisacodyl (Dulcolax) 5 mg DAILY PRN PO CONSTIPATION Last administered on 07:59; Admin Dose 5 MG; Start 01/02/17 at 23:00 Aspirin (Aspirin) 81 mg DAILY PO Last administered on 01/17/17 07:58; Admin Dose 81 MG; Start 01/03/17 at 09:00 Carvedilol (Coreg) 12.5 mg BID PO Last administered on 01/17/17 07:59; Admin Dose 12.5 MG; Start 01/03/17 at 09:00 Clonidine (Catapres) 0.2 mg BID PO Last administered on 01/17/17 08:00; Admin Dose 0.2 MG; Start 01/03/17 at 09:00 Folic Acid (Folic Acid) 1 mg DAILY PO Last administered on 01/17/17 07:58; Admin Dose 1 MG; Start 01/03/17 at 09:00 Hydralazine HCl (Apresoline) 50 mg Q12 PRN PO FOR SBP ABOVE 170 Last administered on 01/09/17 17:26; Admin Dose 50 MG; Start 01/02/17 at 23:00 Labetalol HCl (Normodyne) 100 mg BID PO ; Start 01/03/17 at 09:00; Status Future Hold Multivit/Ca Carb/ B Cmplx/FA/Prenat (Sommer-Samantha) 1 tab DAILY PO Last administered on 01/17/17 07:59; Admin Dose 1 TAB; Start 01/03/17 at 09:00 Nifedipine (Procardia Xl) 60 mg DAILY PO Last administered on 01/17/17 08:00 ; Admin Dose 60 MG; Start 01/03/17 at 09:00 Topiramate (Topamax Sprinkle) 25 mg BID PO Last administered on 01/17/17 07: 59; Admin Dose 25 MG; Start 01/03/17 at 09:00 Nifedipine (Procardia Xl) 30 mg HS PO Last administered on 01/16/17 20:46; Admin Dose 30 MG; Start 01/08/17 at 21:00 Apixaban (Eliquis) 10 mg BID PO Last administered on 01/17/17 07:59; Admin Dose 10 MG; Start 01/11/17 at 10:00; Status Future hold Baclofen (Lioresal) 10 mg TID PO Last administered on 01/17/17 07:59; Admin Dose 10 MG; Start 01/12/17 at 21:00 Metoclopramide HCl (Reglan) 10 mg Q6H PRN IV nausea and vomiting Last administered on 01/15/17 17:22; Admin Dose 10 MG; Start 01/14/17 at 02:30 Trimethobenzamide HCl 200 mg 200 mg Q6H PRN IM NAUSEA AND/OR VOMITING; Start 01/14/17 at 12:00 Ondansetron HCl/ Sodium Chloride (Zofran Inj/NS) 54 ml @ 216 mls/hr Q6H PRN IV NAUSEA AND/OR VOMITING Last administered on 01/15/17 20:32; Admin Dose 216 MLS/HR; Start 01/14/17 at 12:00 Lorazepam (Ativan) 2 mg Q4 PRN IV AGITATION Last administered on 01/16/17 21: 06; Admin Dose 2 MG; Start 01/16/17 at 10:30 Risperidone (Risperdal) 0.5 mg BID PO Last administered on 01/17/17 08:00; Admin Dose 0.5 MG; Start 01/16/17 at 21:00 Lorazepam (Ativan) 1 mg Q4 PRN IV AGITATION/ANXIETY; Start 01/16/17 at 10:30 NATHAN GIRARD Jan 17, 2017 12:12
--- NOTE | 2017-01-17 13:23 | PN ---
Date/Time of Note Date/Time of Note DATE: 01/17/17 TIME: 13:17 Assessment/Plan VTE Prophylaxis VTE Prophylaxis Intervention: SCD's Lines/Catheters IV Catheter Type (from Nrsg): Aris Urinary Cath still in place: No Assessment/Plan Assessment/Plan 31 yo F with ESRD on HD, recent admission for MSSA CLABSI/tunnel infection, found to have large LLE DVT at that time readmitted for worsening LLE pain. Imaging with worsening of clot despite anticoagulation. Pt now sp PD catheter placement, and left groin permAcath removal and iliac venoplasty and R HD line placement. Hospitalization has been complicated by acute encephalopathy 12.9, thought to be opiate mediated. per notes there is concern that a family member or friend had brought drugs to the patient. This AM pt quite somnolent and with pinpoint pupils, resolved with narcan. #LLE DVT also superficial thrombophlebitis: management as per vascular surgery. cont high dose ATC. sp L femoral line removal and new R HD line placement (aris only) #ESRD: nephrology on cs for HD-->PD catheter placed 11.30 of note, talked to car driver on service this weeks. She states it will be several mos until pt is really an optimal PD candidate and is advising HD for the time being. I have text messaged the vascular surgeon to see if/ when PermCath placement could/will be done #pain intolerance: pain management on consult. restricted visitors. hospital security aware Subjective 24 Hr Interval Summary Free Text/Dictation Quite sleepy this AM and with pinpoint pupils. Awoke after Narcan x 1. Also with L sided facial droop noted Exam/Review of Systems Vital Signs Vitals Vital Signs Date Time Temp Pulse Resp B/P Pulse Ox O2 Delivery O2 Flow Rate FiO2 01/17/17 12:50 82 01/17/17 11:54 98.1 18 191/125 98 01/16/17 20:00 Bag Valve Mask Intake and Output 01/16/17 01/16/17 01/17/17 15:00 23:00 07:00 Intake Total 200 ml 70 ml Balance 200 ml 70 ml Exam L lower facial droop, able to move both eyebrows freely pinpoint pupils on my first eval. resolved after narcan no mrg lungs clear abd soft no rashes Results Result Diagram: 01/17/17 0732 01/17/17 0732 Results 24 hrs Laboratory Tests Test 01/16/17 14:09 01/17/17 07:32 01/17/17 07:59 Activated Partial Thromboplast Time 137.4 *H White Blood Count 7.1 Red Blood Count 2.69 L Hemoglobin 8.0 L Hematocrit 25.0 L Mean Corpuscular Volume 92.9 Mean Corpuscular Hemoglobin 29.7 Mean Corpuscular Hemoglobin Concent 32.0 Red Cell Distribution Width 15.3 H Platelet Count 146 Mean Platelet Volume 11.0 H Neutrophils % 66.8 Lymphocytes % 18.5 Monocytes % 9.3 Eosinophils % 4.4 Basophils % 0.7 Nucleated Red Blood Cells % 0.0 Neutrophils # 4.8 Lymphocytes # 1.3 Monocytes # 0.7 Eosinophils # 0.3 Basophils # 0.1 Nucleated Red Blood Cells # 0.0 Sodium Level 143 Potassium Level 4.4 Chloride Level 104 Carbon Dioxide Level 23 Anion Gap 20 H Blood Urea Nitrogen 79 H Creatinine 13.04 H Glucose Level 92 Calcium Level 9.5 Lab Scanned Report BLOOD TRANSFUSION Medications Medications Current Medications Acetaminophen (Tylenol Tab) 650 mg Q6H PRN PO PAIN LEVEL 1-3 OR FEVER; Start 01/02/17 at 23:00 Docusate Sodium (Colace) 100 mg Q12H PRN PO CONSTIPATION Last administered on 01/17/17 07:58; Admin Dose 100 MG; Start 01/02/17 at 23:00 Bisacodyl (Dulcolax) 5 mg DAILY PRN PO CONSTIPATION Last administered on 07:59; Admin Dose 5 MG; Start 01/02/17 at 23:00 Aspirin (Aspirin) 81 mg DAILY PO Last administered on 01/17/17 07:58; Admin Dose 81 MG; Start 01/03/17 at 09:00 Carvedilol (Coreg) 12.5 mg BID PO Last administered on 01/17/17 07:59; Admin Dose 12.5 MG; Start 01/03/17 at 09:00 Clonidine (Catapres) 0.2 mg BID PO Last administered on 01/17/17 08:00; Admin Dose 0.2 MG; Start 01/03/17 at 09:00 Folic Acid (Folic Acid) 1 mg DAILY PO Last administered on 01/17/17 07:58; Admin Dose 1 MG; Start 01/03/17 at 09:00 Hydralazine HCl (Apresoline) 50 mg Q12 PRN PO FOR SBP ABOVE 170 Last administered on 01/09/17 17:26; Admin Dose 50 MG; Start 01/02/17 at 23:00 Labetalol HCl (Normodyne) 100 mg BID PO ; Start 01/03/17 at 09:00; Status Future Hold Multivit/Ca Carb/ B Cmplx/FA/Prenat (Sommer-Samantha) 1 tab DAILY PO Last administered on 01/17/17 07:59; Admin Dose 1 TAB; Start 01/03/17 at 09:00 Nifedipine (Procardia Xl) 60 mg DAILY PO Last administered on 01/17/17 08:00 ; Admin Dose 60 MG; Start 01/03/17 at 09:00 Topiramate (Topamax Sprinkle) 25 mg BID PO Last administered on 01/17/17 07: 59; Admin Dose 25 MG; Start 01/03/17 at 09:00 Nifedipine (Procardia Xl) 30 mg HS PO Last administered on 01/16/17 20:46; Admin Dose 30 MG; Start 01/08/17 at 21:00 Apixaban (Eliquis) 10 mg BID PO Last administered on 01/17/17 07:59; Admin Dose 10 MG; Start 01/11/17 at 10:00; Status Future hold Baclofen (Lioresal) 10 mg TID PO Last administered on 01/17/17 07:59; Admin Dose 10 MG; Start 01/12/17 at 21:00 Metoclopramide HCl (Reglan) 10 mg Q6H PRN IV nausea and vomiting Last administered on 01/15/17 17:22; Admin Dose 10 MG; Start 01/14/17 at 02:30 Trimethobenzamide HCl 200 mg 200 mg Q6H PRN IM NAUSEA AND/OR VOMITING; Start 01/14/17 at 12:00 Ondansetron HCl/ Sodium Chloride (Zofran Inj/NS) 54 ml @ 216 mls/hr Q6H PRN IV NAUSEA AND/OR VOMITING Last administered on 01/15/17 20:32; Admin Dose 216 MLS/HR; Start 01/14/17 at 12:00 Lorazepam (Ativan) 1 mg Q6 PRN IV AGITATION/ANXIETY; Start 01/17/17 at 18:00 Quetiapine Fumarate (Seroquel) 25 mg BID NGT ; Start 01/17/17 at 21:00 BHARAT BLACK MD Jan 17, 2017 13:23
--- NOTE | 2017-01-17 14:26 | RADRPT ---
Vent Rate: 74 bpm RR Interval: 0 msec SC Interval: 220 msec QRS Duration: 104 msec QT Interval: 406 msec QTC Interval: 450 msec P-R-T [place]: 65 - 13 - 70 degrees Sinus rhythm with 1st degree AV block Otherwise normal ECG Electronically Signed By: Abdulkadir Magdaleno [id number]
--- NOTE | 2017-01-17 15:13 | RADRPT ---
PROCEDURE: CT Brain without. CLINICAL INDICATION: Facial droop. TECHNIQUE: A CT of the brain was performed on multidetector high-resolution CT scanner utilizing a xial sections from the skull base through the vertex without contrast. The scan was reviewed in sof t tissue brain and high frequency resolution bone algorithm windows. Images were reviewed on a high -resolution PACS workstation. One or more the following does reduction techniques were utilized: Aut omated exposure control, adjustment of the mA/ or kV according to patient's size, or use of iterativ e reconstruction technique. The exam CTDI = 43.12 mGy and the DLP = 823.87 mGy-cm. DICOM images are available. COMPARISON: Brain CT 06/20/2015. FINDINGS: The ventricles and sulci are age-appropriate. There is no intracranial hemorrhage, mass effect or mi dline shift. No abnormal intra-axial or extra-axial fluid collections are seen. The grijalva/white nabeel er differentiation is preserved. No acute skull abnormality is noted. The visualized paranasal sinus es are essentially clear. IMPRESSION: 1. No acute intracranial hemorrhage, transcortical infarction or mass effect. If clinical concern p ersists consider brain MRI. RPTAT: QQ .Franky Ward MD, MD Date Time Electronically viewed and signed by .Franky Ward MD, MD on 01/17/2017 15:13 .N/
[2017-01-17] MEDS ORDERED: LORAZEPAM 2 MG INJ IV PRN (18:00)
[2017-01-17 19:45] LABS: BARBITURATES Negative (NEGATIVE); BENZODIAZEPINES Negative (NEGATIVE); CANNABINOIDS Negative (NEGATIVE); COCAINE Negative (NEGATIVE); OPIATES Positive (NEGATIVE)
[2017-01-17] MEDS: NIFEdipine (XL) 30 MG TAB PO SCH (20:32)
[2017-01-17] MEDS: QUETIAPINE 25 MG TAB NGT SCH (20:33)
[2017-01-17] MEDS ORDERED: hydrALAzine 20 MG INJ IV ONE ×2 (21:00→23:00)
[2017-01-18] VITALS (15 sets, daily range): BP systolic 141–210; BP diastolic 74–110; PULSE 69–154; RESP 16
[2017-01-18] MEDS ORDERED: KETOROLAC 30 MG INJ IV ONE (04:32)
[2017-01-18] MEDS: hydrALAzine 20 MG INJ IV PRN (05:42)
[2017-01-18] MEDS: SEVELAMER 800 MG TAB PO SCH ×3 (07:55→17:55)
[2017-01-18 08:54] LABS: BASOPHIL # 0.1 10^3/ul (0.0-0.1); BASOPHILS % 0.6 % (0.0-2.0); EOSINOPHILS # 0.4 10^3/ul (0.0-0.5); EOSINOPHILS % 4.1 % (0.0-7.0); HEMATOCRIT 26.2 % (37.0-47.0); HEMOGLOBIN 8.6 g/dl (12.0-16.0); LYMPHOCYTES # 1.3 10^3/ul (0.8-2.9); LYMPHOCYTES % 12.6 % (15.0-51.0); MEAN CORPUSCULAR HEMOGLOBIN 30.3 pg (29.0-33.0); MEAN CORPUSCULAR HGB CONC 32.8 g/dl (32.0-37.0); MEAN CORPUSCULAR VOLUME 92.3 fl (82.0-101.0); MEAN PLATELET VOLUME 10.8 fl (7.4-10.4); MONOCYTE # 0.8 10^3/ul (0.3-0.9); MONOCYTES % 8.3 % (0.0-11.0); NEUTROPHIL # 7.4 10^3/ul (1.6-7.5); PLATELET COUNT 160 10^3/UL (140-415); RED BLOOD COUNT 2.84 10^6/ul (4.20-5.40); RED CELL DISTRIBUTION WIDTH 15.2 % (11.5-14.5)
[2017-01-18 08:58] LABS: CREATININE 11.47 mg/dl (0.44-1.00); POTASSIUM 4.6 mmol/L (3.5-5.1)
[2017-01-18] MEDS: APIXABAN 5 MG TABLET PO SCH (09:00)
[2017-01-18] MEDS: BACLOFEN 10 MG TAB PO SCH (09:02)
[2017-01-18] MEDS: MULTIVIT/CA CARB/B CMPLX/FA TAB PO SCH (09:03)
[2017-01-18] MEDS: TOPIRAMATE SPRINKLE 25 MG CAP PO SCH (09:03)
[2017-01-18] MEDS: ASPIRIN 81 MG TAB PO SCH (09:03)
[2017-01-18] MEDS: NIFEdipine (XL) 60 MG TAB PO SCH (09:06)
[2017-01-18] MEDS: FOLIC ACID 1 MG TAB PO SCH (09:06)
[2017-01-18] MEDS: QUETIAPINE 25 MG TAB NGT SCH (09:06)
[2017-01-18] MEDS ORDERED: BACLOFEN 10 MG TAB PO PRN (11:00)
--- NOTE | 2017-01-18 11:43 | CONS ---
Date/Time of Note Date/Time of Note DATE: 01/18/17 TIME: 11:41 Assessment/Plan Assessment/Plan Additional Assessment/Plan 1. Preoperative evaluation prior to placement of a peritoneal dialysis catheter.-negative trop x 2/no change on serial ecg's/Nl EF by most recent echo during last admission with no contraindicated valve lesions. Thus ok to proceed to OR for placement of PD catheter at moderate CV risk without further noninvasive evaluation. Now post-op s/p PD catheter placement and removal of femoral catheter - stable now. 2. Hypertension-labile - overall, reasonably controlled. STABLE. 3. Left lower extremity deep venous thrombosis- anti-coag as OK per vascular team - tolerated well. 4. Anemia-s/p transfusion - no active bleeding now 5. Prior failed chest wall catheters. 6. s/p PD catheter and illiac venoplasty 7. Letharg-secondary to ? oversedation - more alert now, [place] p[place] 8. SVT - episode of SVT in am, better now - will monitor clinically Consultation Date/Type/Reason Admit Date/Time Jan 05, 2017 at 14:32 Type of Consultation: Renal Referring Provider: JULISSA NI MD 24 HR Interval Summary Free Text/Dictation NO acute events - BP in good range - SVT episode, now resolved ROS: No fever, no chills, no nausea, no vomiting, no diarrhea/constipation - confused No recent weight changes No chest pain, no PND, no orthopnea No dizziness, blurred vision No thirst, no heat or cold intolerance Exam/Review of Systems Vital Signs Vitals Vital Signs Date Time Temp Pulse Resp B/P Pulse Ox O2 Delivery O2 Flow Rate FiO2 01/18/17 08:11 105 01/18/17 05:00 176/96 01/18/17 04:04 98.9 16 99 01/16/17 20:00 Bag Valve Mask Intake and Output 01/17/17 01/17/17 01/18/17 14:59 22:59 06:59 Intake Total 1300 ml 880 ml 240 ml Output Total 3300 ml Balance -2000 ml 880 ml 240 ml Exam General: WN/WD/NAD, AOx 1-2 Bel's Palsy HEENT: Unicetric/atraumatic/EOMI (follows commands) NECK: JVD elevated, no thyromegaly Lymph: no lymphadenopathy HEART: regular with no S3, II/ systolic murmur at apex LUNGS: Coarse sounds ABD: soft, NT, ND, +BS : Intact Neuro: non focal SKIN: chronic changes EXT: trace edema Results Result Diagram: 01/18/17 0812 01/18/17 0812 Results 24 hrs Laboratory Tests Test 01/17/17 17:45 01/18/17 08:12 Urine Opiates Screen Positive Urine Barbiturates Negative Urine Amphetamines Screen Negative Urine Benzodiazepines Screen Negative Urine Cocaine Screen Negative Urine Cannabinoids Negative White Blood Count 10.0 # Red Blood Count 2.84 L Hemoglobin 8.6 L Hematocrit 26.2 L Mean Corpuscular Volume 92.3 Mean Corpuscular Hemoglobin 30.3 Mean Corpuscular Hemoglobin Concent 32.8 Red Cell Distribution Width 15.2 H Platelet Count 160 Mean Platelet Volume 10.8 H Neutrophils % 74.0 Lymphocytes % 12.6 L Monocytes % 8.3 Eosinophils % 4.1 Basophils % 0.6 Nucleated Red Blood Cells % 0.0 Neutrophils # 7.4 Lymphocytes # 1.3 Monocytes # 0.8 Eosinophils # 0.4 Basophils # 0.1 Nucleated Red Blood Cells # 0.0 Sodium Level 144 Potassium Level 4.6 Chloride Level 106 Carbon Dioxide Level 21 Anion Gap 22 H Blood Urea Nitrogen 64 H Creatinine 11.47 H Glucose Level 104 Calcium Level 10.0 Medications Medications Current Medications Acetaminophen (Tylenol Tab) 650 mg Q6H PRN PO PAIN LEVEL 1-3 OR FEVER; Start 01/02/17 at 23:00 Docusate Sodium (Colace) 100 mg Q12H PRN PO CONSTIPATION Last administered on 01/17/17 07:58; Admin Dose 100 MG; Start 01/02/17 at 23:00 Bisacodyl (Dulcolax) 5 mg DAILY PRN PO CONSTIPATION Last administered on 07:59; Admin Dose 5 MG; Start 01/02/17 at 23:00 Aspirin (Aspirin) 81 mg DAILY PO Last administered on 01/18/17 09:03; Admin Dose 81 MG; Start 01/03/17 at 09:00 Carvedilol (Coreg) 12.5 mg BID PO Last administered on 01/18/17 09:04; Admin Dose 12.5 MG; Start 01/03/17 at 09:00 Clonidine (Catapres) 0.2 mg BID PO Last administered on 01/18/17 09:05; Admin Dose 0.2 MG; Start 01/03/17 at 09:00 Folic Acid (Folic Acid) 1 mg DAILY PO Last administered on 01/18/17 09:06; Admin Dose 1 MG; Start 01/03/17 at 09:00 Hydralazine HCl (Apresoline) 50 mg Q12 PRN PO FOR SBP ABOVE 170 Last administered on 01/17/17 16:40; Admin Dose 50 MG; Start 01/02/17 at 23:00 Labetalol HCl (Normodyne) 100 mg BID PO ; Start 01/03/17 at 09:00; Status Future Hold Multivit/Ca Carb/ B Cmplx/FA/Prenat (Sommer-Samantha) 1 tab DAILY PO Last administered on 01/18/17 09:03; Admin Dose 1 TAB; Start 01/03/17 at 09:00 Nifedipine (Procardia Xl) 60 mg DAILY PO Last administered on 01/18/17 09:06 ; Admin Dose 60 MG; Start 01/03/17 at 09:00 Topiramate (Topamax Sprinkle) 25 mg BID PO Last administered on 01/18/17 09: 03; Admin Dose 25 MG; Start 01/03/17 at 09:00 Nifedipine (Procardia Xl) 30 mg HS PO Last administered on 01/17/17 20:32; Admin Dose 30 MG; Start 01/08/17 at 21:00 Apixaban (Eliquis) 10 mg BID PO Last administered on 01/17/17 20:32; Admin Dose 10 MG; Start 01/11/17 at 10:00; Status Future hold Metoclopramide HCl (Reglan) 10 mg Q6H PRN IV nausea and vomiting Last administered on 01/15/17 17:22; Admin Dose 10 MG; Start 01/14/17 at 02:30 Trimethobenzamide HCl 200 mg 200 mg Q6H PRN IM NAUSEA AND/OR VOMITING; Start 01/14/17 at 12:00 Ondansetron HCl/ Sodium Chloride (Zofran Inj/NS) 54 ml @ 216 mls/hr Q6H PRN IV NAUSEA AND/OR VOMITING Last administered on 01/15/17 20:32; Admin Dose 216 MLS/HR; Start 01/14/17 at 12:00 Hydralazine HCl (Apresoline) 10 mg Q4H PRN IV ELEVATED BLOOD PRESSURE Last administered on 01/18/17 05:42; Admin Dose 10 MG; Start 01/17/17 at 23:00 CARINA RTITER MD Jan 18, 2017 11:42
--- NOTE | 2017-01-18 12:32 | CONS ---
Date/Time of Note Date/Time of Note DATE: 01/18/17 TIME: 12:26 Assessment/Plan Assessment/Plan Chief Complaint/Hosp Course 31 Y/O withh 1. ESRD with hyperkalemia, with rt groin catheter 2. Acute deep venous thrombosis of the left lower extremity on heparin drip 3. Chronic pain. 4. Anemia. 5. Hypertension. 6. Vasculopathy. 7. uremia with pruritus. 8. s/p pd cath placement 9 AMS likely metabolic enacephalopathy due to drugs vs seizure?? Recs - Will do PD session today - Pt will need out pt PD training at [facility] - continue hd for now, WILL need permacath before dc - Increase Coreg to 25 bid - agree with stopping narcotics, recommend EEG and Neuro consult - Pt cannot have MRI due to risk of NSF wih gadolinum in ESRD pts - c/w Renagel - Renal diet - Bp control with Nifedipine 30/60, increase Coreg 25 bid and clonidine 0.2 bid Problems: Consultation Date/Type/Reason Admit Date/Time Jan 05, 2017 at 14:32 Type of Consultation: Renal Referring Provider: JULISSA NI MD 24 HR Interval Summary Free Text/Dictation Episode of SVT this am 154> resolveD Pt appears confused and slight tremolous acitivity CT head negative Exam/Review of Systems Vital Signs Vitals Vital Signs Date Time Temp Pulse Resp B/P Pulse Ox O2 Delivery O2 Flow Rate FiO2 01/18/17 12:22 69 01/18/17 08:00 98.8 176/108 99 Room Air 01/18/17 04:04 16 Intake and Output 01/17/17 01/17/17 01/18/17 14:59 22:59 06:59 Intake Total 1300 ml 880 ml 240 ml Output Total 3300 ml Balance -2000 ml 880 ml 240 ml Exam Constitutional: confused Head: normocephalic Neck: supple Respiratory: diminished breath sounds Cardiovascular: regular rate and rhythm Gastrointestinal: soft Abdomen : PD cath in LLQ Musculoskeletal: muscle weakness, swelling (left leg) Results Result Diagram: 01/18/17 0812 01/18/17 0812 Results 24 hrs Laboratory Tests Test 01/17/17 17:45 01/18/17 08:12 Urine Opiates Screen Positive Urine Barbiturates Negative Urine Amphetamines Screen Negative Urine Benzodiazepines Screen Negative Urine Cocaine Screen Negative Urine Cannabinoids Negative White Blood Count 10.0 # Red Blood Count 2.84 L Hemoglobin 8.6 L Hematocrit 26.2 L Mean Corpuscular Volume 92.3 Mean Corpuscular Hemoglobin 30.3 Mean Corpuscular Hemoglobin Concent 32.8 Red Cell Distribution Width 15.2 H Platelet Count 160 Mean Platelet Volume 10.8 H Neutrophils % 74.0 Lymphocytes % 12.6 L Monocytes % 8.3 Eosinophils % 4.1 Basophils % 0.6 Nucleated Red Blood Cells % 0.0 Neutrophils # 7.4 Lymphocytes # 1.3 Monocytes # 0.8 Eosinophils # 0.4 Basophils # 0.1 Nucleated Red Blood Cells # 0.0 Sodium Level 144 Potassium Level 4.6 Chloride Level 106 Carbon Dioxide Level 21 Anion Gap 22 H Blood Urea Nitrogen 64 H Creatinine 11.47 H Glucose Level 104 Calcium Level 10.0 Medications Medications Current Medications Acetaminophen (Tylenol Tab) 650 mg Q6H PRN PO PAIN LEVEL 1-3 OR FEVER; Start 01/02/17 at 23:00 Docusate Sodium (Colace) 100 mg Q12H PRN PO CONSTIPATION Last administered on 01/17/17 07:58; Admin Dose 100 MG; Start 01/02/17 at 23:00 Bisacodyl (Dulcolax) 5 mg DAILY PRN PO CONSTIPATION Last administered on 07:59; Admin Dose 5 MG; Start 01/02/17 at 23:00 Aspirin (Aspirin) 81 mg DAILY PO Last administered on 01/18/17 09:03; Admin Dose 81 MG; Start 01/03/17 at 09:00 Carvedilol (Coreg) 12.5 mg BID PO Last administered on 01/18/17 09:04; Admin Dose 12.5 MG; Start 01/03/17 at 09:00 Clonidine (Catapres) 0.2 mg BID PO Last administered on 01/18/17 09:05; Admin Dose 0.2 MG; Start 01/03/17 at 09:00 Folic Acid (Folic Acid) 1 mg DAILY PO Last administered on 01/18/17 09:06; Admin Dose 1 MG; Start 01/03/17 at 09:00 Hydralazine HCl (Apresoline) 50 mg Q12 PRN PO FOR SBP ABOVE 170 Last administered on 01/17/17 16:40; Admin Dose 50 MG; Start 01/02/17 at 23:00 Labetalol HCl (Normodyne) 100 mg BID PO ; Start 01/03/17 at 09:00; Status Future Hold Multivit/Ca Carb/ B Cmplx/FA/Prenat (Sommer-Samantha) 1 tab DAILY PO Last administered on 01/18/17 09:03; Admin Dose 1 TAB; Start 01/03/17 at 09:00 Nifedipine (Procardia Xl) 60 mg DAILY PO Last administered on 01/18/17 09:06 ; Admin Dose 60 MG; Start 01/03/17 at 09:00 Topiramate (Topamax Sprinkle) 25 mg BID PO Last administered on 01/18/17 09: 03; Admin Dose 25 MG; Start 01/03/17 at 09:00 Nifedipine (Procardia Xl) 30 mg HS PO Last administered on 01/17/17 20:32; Admin Dose 30 MG; Start 01/08/17 at 21:00 Apixaban (Eliquis) 10 mg BID PO Last administered on 01/17/17 20:32; Admin Dose 10 MG; Start 01/11/17 at 10:00; Status Future hold Metoclopramide HCl (Reglan) 10 mg Q6H PRN IV nausea and vomiting Last administered on 01/15/17 17:22; Admin Dose 10 MG; Start 01/14/17 at 02:30 Trimethobenzamide HCl 200 mg 200 mg Q6H PRN IM NAUSEA AND/OR VOMITING; Start 01/14/17 at 12:00 Ondansetron HCl/ Sodium Chloride (Zofran Inj/NS) 54 ml @ 216 mls/hr Q6H PRN IV NAUSEA AND/OR VOMITING Last administered on 01/15/17 20:32; Admin Dose 216 MLS/HR; Start 01/14/17 at 12:00 Hydralazine HCl (Apresoline) 10 mg Q4H PRN IV ELEVATED BLOOD PRESSURE Last administered on 01/18/17 05:42; Admin Dose 10 MG; Start 01/17/17 at 23:00 MICHAEL LEYVA MD Jan 18, 2017 12:32
--- NOTE | 2017-01-18 13:17 | PN ---
Date/Time of Note Date/Time of Note DATE: 01/18/17 TIME: 13:15 Assessment/Plan VTE Prophylaxis VTE Prophylaxis Intervention: SCD's Lines/Catheters IV Catheter Type (from Nrsg): jennifer cath w/ pigtail Urinary Cath still in place: No Assessment/Plan Assessment/Plan 31 yo F with ESRD on HD, recent admission for MSSA CLABSI/tunnel infection, found to have large LLE DVT at that time readmitted for worsening LLE pain. Imaging with worsening of clot despite anticoagulation. Pt now sp PD catheter placement, and left groin permAcath removal and iliac venoplasty and R HD line placement. Hospitalization has been complicated by acute encephalopathy 12.9, thought to be opiate mediated. per notes there is concern that a family member or friend had brought drugs to the patient. Now with encephelopathy, suspect toxic/metabolic from pain/psych meds #encephelopathy: NCCT head without bleed/mass. Appears pain big machine consultant had pt on baclofen 10 TID. This medication is renally cleared and perhaps was not the best choice given this woman's ESRD -stop baclofen, stop Topamax, stop seroquel -neuro consult -noncon MRI brain #LLE DVT also superficial thrombophlebitis: sp L femoral line removal and new R HD line placement (jennifer) per vascular, pt needs to be back on heparin drip for permCath. stop eliquis resume heparin drip #ESRD: nephrology on cs for HD-->PD catheter placed 11.30 of note, talked to equipment operation instructor on service this weeks. She states it will be several mos until pt is really an optimized from PD standpoint. cont HD with PD augmentation Subjective 24 Hr Interval Summary Free Text/Dictation Pt quite somnolent this AM. per nursing, she was previously very agitated Exam/Review of Systems Vital Signs Vitals Vital Signs Date Time Temp Pulse Resp B/P Pulse Ox O2 Delivery O2 Flow Rate FiO2 01/18/17 12:22 69 01/18/17 08:00 98.8 176/108 99 Room Air 01/18/17 04:04 16 Intake and Output 01/17/17 01/17/17 01/18/17 14:59 22:59 06:59 Intake Total 1300 ml 880 ml 240 ml Output Total 3300 ml Balance -2000 ml 880 ml 240 ml Exam sleeping very soundly but also protecting her airway does not rouse even to sternal rub no mrg lungs clear abd soft Results Result Diagram: 01/18/17 0812 01/18/17 0812 Results 24 hrs Laboratory Tests Test 01/17/17 17:45 01/18/17 08:12 Urine Opiates Screen Positive Urine Barbiturates Negative Urine Amphetamines Screen Negative Urine Benzodiazepines Screen Negative Urine Cocaine Screen Negative Urine Cannabinoids Negative White Blood Count 10.0 # Red Blood Count 2.84 L Hemoglobin 8.6 L Hematocrit 26.2 L Mean Corpuscular Volume 92.3 Mean Corpuscular Hemoglobin 30.3 Mean Corpuscular Hemoglobin Concent 32.8 Red Cell Distribution Width 15.2 H Platelet Count 160 Mean Platelet Volume 10.8 H Neutrophils % 74.0 Lymphocytes % 12.6 L Monocytes % 8.3 Eosinophils % 4.1 Basophils % 0.6 Nucleated Red Blood Cells % 0.0 Neutrophils # 7.4 Lymphocytes # 1.3 Monocytes # 0.8 Eosinophils # 0.4 Basophils # 0.1 Nucleated Red Blood Cells # 0.0 Sodium Level 144 Potassium Level 4.6 Chloride Level 106 Carbon Dioxide Level 21 Anion Gap 22 H Blood Urea Nitrogen 64 H Creatinine 11.47 H Glucose Level 104 Calcium Level 10.0 Medications Medications Current Medications Acetaminophen (Tylenol Tab) 650 mg Q6H PRN PO PAIN LEVEL 1-3 OR FEVER; Start 01/02/17 at 23:00 Docusate Sodium (Colace) 100 mg Q12H PRN PO CONSTIPATION Last administered on 01/17/17 07:58; Admin Dose 100 MG; Start 01/02/17 at 23:00 Bisacodyl (Dulcolax) 5 mg DAILY PRN PO CONSTIPATION Last administered on 07:59; Admin Dose 5 MG; Start 01/02/17 at 23:00 Aspirin (Aspirin) 81 mg DAILY PO Last administered on 01/18/17 09:03; Admin Dose 81 MG; Start 01/03/17 at 09:00 Clonidine (Catapres) 0.2 mg BID PO Last administered on 01/18/17 09:05; Admin Dose 0.2 MG; Start 01/03/17 at 09:00 Folic Acid (Folic Acid) 1 mg DAILY PO Last administered on 01/18/17 09:06; Admin Dose 1 MG; Start 01/03/17 at 09:00 Hydralazine HCl (Apresoline) 50 mg Q12 PRN PO FOR SBP ABOVE 170 Last administered on 01/17/17 16:40; Admin Dose 50 MG; Start 01/02/17 at 23:00 Labetalol HCl (Normodyne) 100 mg BID PO ; Start 01/03/17 at 09:00; Status Future Hold Multivit/Ca Carb/ B Cmplx/FA/Prenat (Sommer-Samantha) 1 tab DAILY PO Last administered on 01/18/17 09:03; Admin Dose 1 TAB; Start 01/03/17 at 09:00 Nifedipine (Procardia Xl) 60 mg DAILY PO Last administered on 01/18/17 09:06 ; Admin Dose 60 MG; Start 01/03/17 at 09:00 Topiramate (Topamax Sprinkle) 25 mg BID PO Last administered on 01/18/17 09: 03; Admin Dose 25 MG; Start 01/03/17 at 09:00 Nifedipine (Procardia Xl) 30 mg HS PO Last administered on 01/17/17 20:32; Admin Dose 30 MG; Start 01/08/17 at 21:00 Apixaban (Eliquis) 10 mg BID PO Last administered on 01/17/17 20:32; Admin Dose 10 MG; Start 01/11/17 at 10:00; Status Future hold Metoclopramide HCl (Reglan) 10 mg Q6H PRN IV nausea and vomiting Last administered on 01/15/17 17:22; Admin Dose 10 MG; Start 01/14/17 at 02:30 Trimethobenzamide HCl 200 mg 200 mg Q6H PRN IM NAUSEA AND/OR VOMITING; Start 01/14/17 at 12:00 Ondansetron HCl/ Sodium Chloride (Zofran Inj/NS) 54 ml @ 216 mls/hr Q6H PRN IV NAUSEA AND/OR VOMITING Last administered on 01/15/17 20:32; Admin Dose 216 MLS/HR; Start 01/14/17 at 12:00 Hydralazine HCl (Apresoline) 10 mg Q4H PRN IV ELEVATED BLOOD PRESSURE Last administered on 01/18/17 05:42; Admin Dose 10 MG; Start 12/12/17 at 23:00 Carvedilol (Coreg) 25 mg BID PO ; Start 01/18/17 at 21:00 BHARAT BLACK MD Jan 18, 2017 13:17
[2017-01-18] MEDS ORDERED: HEPARIN 1000 UNITS/ML 10 ML INJ IV ONE (16:00)
[2017-01-18] MEDS ORDERED: HEPARIN 1000 UNITS/ML 10 ML INJ IV PRN ×2 (16:00)
[2017-01-18 16:28] LABS: BASOPHIL # 0.1 10^3/ul (0.0-0.1); BASOPHILS % 0.7 % (0.0-2.0); EOSINOPHILS # 0.3 10^3/ul (0.0-0.5); EOSINOPHILS % 3.8 % (0.0-7.0); HEMATOCRIT 27.9 % (37.0-47.0); HEMOGLOBIN 8.9 g/dl (12.0-16.0); LYMPHOCYTES # 1.4 10^3/ul (0.8-2.9); LYMPHOCYTES % 15.4 % (15.0-51.0); MEAN CORPUSCULAR HEMOGLOBIN 29.4 pg (29.0-33.0); MEAN CORPUSCULAR HGB CONC 31.9 g/dl (32.0-37.0); MEAN CORPUSCULAR VOLUME 92.1 fl (82.0-101.0); MEAN PLATELET VOLUME 9.7 fl (7.4-10.4); MONOCYTE # 0.8 10^3/ul (0.3-0.9); MONOCYTES % 8.8 % (0.0-11.0); NEUTROPHIL # 6.2 10^3/ul (1.6-7.5); PLATELET COUNT 162 10^3/UL (140-415); RED BLOOD COUNT 3.03 10^6/ul (4.20-5.40); RED CELL DISTRIBUTION WIDTH 15.2 % (11.5-14.5); WHITE BLOOD COUNT 8.7 10^3/ul (4.8-10.8)
[2017-01-18 16:42] LABS: INR 1.28; PROTIME 16.2 Sec (11.9-14.9); PT RATIO 1.3
[2017-01-18 16:43] LABS: PARTIAL THROMBOPLASTIN TIME 38.7 Sec (25.0-35.0)
[2017-01-18] MEDS: HEPARIN 25000 UNITS/250 ML 250 ML IV SCH (18:32)
--- NOTE | 2017-01-18 18:53 | PN ---
Date/Time of Note Date/Time of Note DATE: 01/18/17 TIME: 18:52 Assessment/Plan Lines/Catheters IV Catheter Type (from [facility]): jennifer cath w/ pigtail [place] in Place (from [facility]): No Assessment/Plan Chief Complaint/Hosp Course -Endstage renal disease and central occlusion and caval thrombosis: It seems the patient had progressed in terms of her left lower extremity deep venous thrombosis. Patient did have deep venous thrombosis findings in the common femoral vein in the past, identified during her angiogram about few weeks ago; therefore, I would not necessarily say that it is an acute finding. However, the patient did have superficial thrombophlebitis of her left greater saphenous vein and now resolved -S/P left groin Perm catheter removal and iliac venoplasty -S/P Emergent right Jennifer catheter placement 01/14 -LLE DVT:-it seems to be chronic in nature and she has some component of hypercoagulable state. Recommend to continue with her anticoagulation -Patient will need to be on heparin gtt for anticoagulation and Hold on eliquis for 48hrs prior to perm catheter placement. At the moment will postpone our procedure as she is also not mentating well and being evaluated by our primary service. Recommend obtaining Head CT and neurology evaluation -PT/OT and OOB FWB -Elevate LLE while at rest -Discussed findings, plan and management with the patient, however not sure if she understands, also importance of compliance was also discussed -Thank you for allowing us to partake in the care of your patient. Please call with any questions. Problems: Subjective 24 Hr Interval Summary patient PO anticoagulation was stopped today and heparin gtt started. Also patient not oriented today, Will therefore schedule patient for Tuesday 01/23. Exam/Review of Systems Vital Signs Vitals Vital Signs Date Time Temp Pulse Resp B/P Pulse Ox O2 Delivery O2 Flow Rate FiO2 01/18/17 16:41 77 01/18/17 16:00 97.3 165/102 99 Room Air 01/18/17 04:04 16 Intake and Output 01/17/17 01/17/17 01/18/17 15:00 23:00 07:00 Intake Total 1300 ml 880 ml 240 ml Output Total 3300 ml Balance -2000 ml 880 ml 240 ml Exam Free Text/Dictation GENERAL: awake and unable to answer questions PULMONARY: Clear to auscultation bilaterally. CARDIOVASCULAR: S1, S2 present. ABDOMEN: Soft, nontender, nondistended. Bowel sounds positive. Truncal obesity. PD catheter intact RIGHT LOWER EXTREMITY: Palpable femoral pulse, faint pedal pulse. Motor, sensory intact. Cap refill 2 to 3 seconds. catheter intact LEFT LOWER EXTREMITY: Palpable femoral pulse. Groin clean and dry. Faint pedal pulse. Motor and sensory intact. Edema of the lower leg 1+, Perm catheter removal site clean Results Result Diagram: 01/18/17 1622 01/18/17 0812 JULISSA NI MD Jan 18, 2017 18:53
[2017-01-18] MEDS: NIFEdipine (XL) 30 MG TAB PO SCH (20:41)
[2017-01-18] MEDS ORDERED: LORAZEPAM 2 MG INJ IV ONE ×2 (21:30)
[2017-01-19] VITALS (20 sets, daily range): BP systolic 140–205; BP diastolic 72–136; PULSE 66–131; RESP 18–19
[2017-01-19] MEDS: METOCLOPRAMIDE 10 MG INJ IV PRN (02:03)
[2017-01-19] MEDS: hydrALAzine 20 MG INJ IV PRN ×2 (04:17→20:05)
[2017-01-19] MEDS ORDERED: morphine 2 MG INJ IV ONE (05:24)
[2017-01-19] MEDS: SEVELAMER 800 MG TAB PO SCH ×5 (07:55→19:24)
[2017-01-19 08:48] LABS: BASOPHIL # 0.1 10^3/ul (0.0-0.1); BASOPHILS % 0.6 % (0.0-2.0); EOSINOPHILS # 0.5 10^3/ul (0.0-0.5); EOSINOPHILS % 4.6 % (0.0-7.0); HEMATOCRIT 26.3 % (37.0-47.0); HEMOGLOBIN 8.6 g/dl (12.0-16.0); LYMPHOCYTES # 1.4 10^3/ul (0.8-2.9); LYMPHOCYTES % 13.3 % (15.0-51.0); MEAN CORPUSCULAR HEMOGLOBIN 30.2 pg (29.0-33.0); MEAN CORPUSCULAR HGB CONC 32.7 g/dl (32.0-37.0); MEAN CORPUSCULAR VOLUME 92.3 fl (82.0-101.0); MEAN PLATELET VOLUME 10.9 fl (7.4-10.4); MONOCYTE # 0.8 10^3/ul (0.3-0.9); MONOCYTES % 7.8 % (0.0-11.0); NEUTROPHIL # 7.7 10^3/ul (1.6-7.5); NEUTROPHILS % 73.3 % (39.0-77.0); PLATELET COUNT 161 10^3/UL (140-415); RED BLOOD COUNT 2.85 10^6/ul (4.20-5.40); RED CELL DISTRIBUTION WIDTH 15.1 % (11.5-14.5); WHITE BLOOD COUNT 10.5 10^3/ul (4.8-10.8)
[2017-01-19 08:59] LABS: CALCIUM 9.7 mg/dl (8.4-10.2); CREATININE 12.54 mg/dl (0.44-1.00); POTASSIUM 4.7 mmol/L (3.5-5.1)
--- NOTE | 2017-01-19 09:53 | CONS ---
Date/Time of Note Date/Time of Note DATE: 01/19/17 TIME: 09:51 Assessment/Plan Assessment/Plan Additional Assessment/Plan 1. Preoperative evaluation prior to placement of a peritoneal dialysis catheter.-negative trop x 2/no change on serial ecg's/Nl EF by most recent echo during last admission with no contraindicated valve lesions. Thus ok to proceed to OR for placement of PD catheter at moderate CV risk without further noninvasive evaluation. Now post-op s/p PD catheter placement and removal of femoral catheter - stable now. BETTER NOW. 2. Hypertension-labile - overall, reasonably controlled. HIGH NOW - HD to follow - resume BP meds s/p HD. 3. Left lower extremity deep venous thrombosis- anti-coag as OK per vascular team - tolerated well. 4. Anemia-s/p transfusion - no active bleeding now - no bleeding now. 5. Prior failed chest wall catheters. 6. s/p PD catheter and illiac venoplasty 7. Letharg-secondary to ? oversedation - more alert now, [place] p[place] 8. SVT - episode of SVT in am, better now - will monitor clinically Consultation Date/Type/Reason Admit Date/Time Jan 05, 2017 at 14:32 Type of Consultation: Renal Referring Provider: JULISSA NI MD 24 HR Interval Summary Free Text/Dictation NO acute events - BP very high - pre-HD - will adjust meds after therapy. ROS: No fever, no chills, no nausea, no vomiting, no diarrhea/constipation No recent weight changes No chest pain, no PND, no orthopnea No dizziness, blurred vision No thirst, no heat or cold intolerance Exam/Review of Systems Vital Signs Vitals Vital Signs Date Time Temp Pulse Resp B/P Pulse Ox O2 Delivery O2 Flow Rate FiO2 01/19/17 08:10 84 01/19/17 07:44 98.4 18 192/117 100 01/18/17 16:00 Room Air Intake and Output 01/18/17 01/18/17 01/19/17 14:59 22:59 06:59 Intake Total 120 ml 424 ml Output Total 500 ml 0 ml Balance -380 ml 424 ml Exam General: WN/WD/NAD, AOx 3 HEENT: Unicetric/atraumatic/EOMI (follows commands) NECK: JVD elevated, no thyromegaly Lymph: no lymphadenopathy HEART: regular with no S3, II/ systolic murmur at apex LUNGS: Coarse sounds ABD: soft, NT, ND, +BS : Intact Neuro: non focal SKIN: chronic changes EXT: trace edema Results Result Diagram: 01/19/17 0825 01/19/17 0824 Results 24 hrs Laboratory Tests Test 01/18/17 16:22 01/19/17 00:53 01/19/17 07:47 01/19/17 08:24 White Blood Count 8.7 Red Blood Count 3.03 L Hemoglobin 8.9 L Hematocrit 27.9 L Mean Corpuscular Volume 92.1 Mean Corpuscular Hemoglobin 29.4 Mean Corpuscular Hemoglobin Concent 31.9 L Red Cell Distribution Width 15.2 H Platelet Count 162 Mean Platelet Volume 9.7 Neutrophils % 71.0 Lymphocytes % 15.4 Monocytes % 8.8 Eosinophils % 3.8 Basophils % 0.7 Nucleated Red Blood Cells % 0.0 Neutrophils # 6.2 Lymphocytes # 1.4 Monocytes # 0.8 Eosinophils # 0.3 Basophils # 0.1 Nucleated Red Blood Cells # 0.0 Prothrombin Time 16.2 H Prothrombin Time Ratio 1.3 INR International Normalized Ratio 1.28 Activated Partial Thromboplast Time 38.7 H 90.4 *H > 180.0 *H Lab Scanned Report REFERENCE LAB Sodium Level 146 H Potassium Level 4.7 Chloride Level 107 Carbon Dioxide Level 20 L Anion Gap 24 H Blood Urea Nitrogen 76 H Creatinine 12.54 H Glucose Level 104 Calcium Level 9.7 Test 01/19/17 08:25 White Blood Count 10.5 # Red Blood Count 2.85 L Hemoglobin 8.6 L Hematocrit 26.3 L Mean Corpuscular Volume 92.3 Mean Corpuscular Hemoglobin 30.2 Mean Corpuscular Hemoglobin Concent 32.7 Red Cell Distribution Width 15.1 H Platelet Count 161 Mean Platelet Volume 10.9 H Neutrophils % 73.3 Lymphocytes % 13.3 L Monocytes % 7.8 Eosinophils % 4.6 Basophils % 0.6 Nucleated Red Blood Cells % 0.0 Neutrophils # 7.7 H Lymphocytes # 1.4 Monocytes # 0.8 Eosinophils # 0.5 Basophils # 0.1 Nucleated Red Blood Cells # 0.0 Medications Medications Current Medications Acetaminophen (Tylenol Tab) 650 mg Q6H PRN PO PAIN LEVEL 1-3 OR FEVER; Start 01/02/17 at 23:00 Docusate Sodium (Colace) 100 mg Q12H PRN PO CONSTIPATION Last administered on 01/17/17 07:58; Admin Dose 100 MG; Start 01/02/17 at 23:00 Bisacodyl (Dulcolax) 5 mg DAILY PRN PO CONSTIPATION Last administered on 07:59; Admin Dose 5 MG; Start 01/02/17 at 23:00 Aspirin (Aspirin) 81 mg DAILY PO Last administered on 01/18/17 09:03; Admin Dose 81 MG; Start 01/03/17 at 09:00 Clonidine (Catapres) 0.2 mg BID PO Last administered on 01/18/17 20:43; Admin Dose 0.2 MG; Start 01/03/17 at 09:00 Folic Acid (Folic Acid) 1 mg DAILY PO Last administered on 01/18/17 09:06; Admin Dose 1 MG; Start 01/03/17 at 09:00 Hydralazine HCl (Apresoline) 50 mg Q12 PRN PO FOR SBP ABOVE 170 Last administered on 01/17/17 16:40; Admin Dose 50 MG; Start 01/02/17 at 23:00 Labetalol HCl (Normodyne) 100 mg BID PO ; Start 01/03/17 at 09:00; Status Future Hold Multivit/Ca Carb/ B Cmplx/FA/Prenat (Sommer-Samantha) 1 tab DAILY PO Last administered on 01/18/17 09:03; Admin Dose 1 TAB; Start 01/03/17 at 09:00 Nifedipine (Procardia Xl) 60 mg DAILY PO Last administered on 01/18/17 09:06 ; Admin Dose 60 MG; Start 01/03/17 at 09:00 Nifedipine (Procardia Xl) 30 mg HS PO Last administered on 01/18/17 20:41; Admin Dose 30 MG; Start 01/08/17 at 21:00 Metoclopramide HCl (Reglan) 10 mg Q6H PRN IV nausea and vomiting Last administered on 01/19/17 02:03; Admin Dose 10 MG; Start 01/14/17 at 02:30 Trimethobenzamide HCl 200 mg 200 mg Q6H PRN IM NAUSEA AND/OR VOMITING; Start 01/14/17 at 12:00 Ondansetron HCl/ Sodium Chloride (Zofran Inj/NS) 54 ml @ 216 mls/hr Q6H PRN IV NAUSEA AND/OR VOMITING Last administered on 01/15/17 20:32; Admin Dose 216 MLS/HR; Start 01/14/17 at 12:00 Hydralazine HCl (Apresoline) 10 mg Q4H PRN IV ELEVATED BLOOD PRESSURE Last administered on 01/19/17 04:17; Admin Dose 10 MG; Start 01/17/17 at 23:00 Carvedilol (Coreg) 25 mg BID PO Last administered on 01/18/17 20:44; Admin Dose 25 MG; Start 01/18/17 at 21:00 CARINA RITTER MD Jan 19, 2017 09:53
--- NOTE | 2017-01-19 10:57 | CONS ---
Date/Time of Note Date/Time of Note DATE: 01/19/17 TIME: 10:57 Assessment/Plan Assessment/Plan Chief Complaint/Hosp Course 31 Y/O withh 1. ESRD with hyperkalemia, with rt groin catheter 2. Acute deep venous thrombosis of the left lower extremity on heparin drip 3. Chronic pain. 4. Anemia. 5. Hypertension. 6. Vasculopathy. 7. uremia with pruritus. 8. s/p pd cath placement 9 AMS likely metabolic enacephalopathy due to drugs vs seizure?? Recs - HD today - Pt will need out pt PD training at [facility] pd clinic - continue hd for now, WILL need permacath before dc - c/w Coreg to 25 bid - agree with stopping narcotics - Pt cannot have MRI due to risk of NSF wih gadolinum in ESRD pts - c/w Renagel - Renal diet - Bp control with Nifedipine 30/60, increase Coreg 25 bid and clonidine 0.2 bid Problems: Consultation Date/Type/Reason Admit Date/Time Jan 05, 2017 at 14:32 Type of Consultation: Renal Referring Provider: JULISSA NI MD 24 HR Interval Summary Free Text/Dictation Pt much more awake today Getting HD Exam/Review of Systems Vital Signs Vitals Vital Signs Date Time Temp Pulse Resp B/P Pulse Ox O2 Delivery O2 Flow Rate FiO2 01/19/17 08:10 84 01/19/17 07:44 98.4 18 192/117 100 01/18/17 16:00 Room Air Intake and Output 01/18/17 01/18/17 01/19/17 15:00 23:00 07:00 Intake Total 120 ml 424 ml Output Total 500 ml 0 ml Balance -380 ml 424 ml Exam Constitutional: confused Head: normocephalic Neck: supple Respiratory: diminished breath sounds Cardiovascular: regular rate and rhythm Gastrointestinal: soft Abdomen : PD cath in LLQ Musculoskeletal: muscle weakness, swelling (left leg) Results Result Diagram: 01/19/17 0825 01/19/17 0824 Results 24 hrs Laboratory Tests Test 01/18/17 16:22 01/19/17 00:53 01/19/17 07:47 01/19/17 08:24 White Blood Count 8.7 Red Blood Count 3.03 L Hemoglobin 8.9 L Hematocrit 27.9 L Mean Corpuscular Volume 92.1 Mean Corpuscular Hemoglobin 29.4 Mean Corpuscular Hemoglobin Concent 31.9 L Red Cell Distribution Width 15.2 H Platelet Count 162 Mean Platelet Volume 9.7 Neutrophils % 71.0 Lymphocytes % 15.4 Monocytes % 8.8 Eosinophils % 3.8 Basophils % 0.7 Nucleated Red Blood Cells % 0.0 Neutrophils # 6.2 Lymphocytes # 1.4 Monocytes # 0.8 Eosinophils # 0.3 Basophils # 0.1 Nucleated Red Blood Cells # 0.0 Prothrombin Time 16.2 H Prothrombin Time Ratio 1.3 INR International Normalized Ratio 1.28 Activated Partial Thromboplast Time 38.7 H 90.4 *H > 180.0 *H Lab Scanned Report REFERENCE LAB Sodium Level 146 H Potassium Level 4.7 Chloride Level 107 Carbon Dioxide Level 20 L Anion Gap 24 H Blood Urea Nitrogen 76 H Creatinine 12.54 H Glucose Level 104 Calcium Level 9.7 Test 01/19/17 08:25 White Blood Count 10.5 # Red Blood Count 2.85 L Hemoglobin 8.6 L Hematocrit 26.3 L Mean Corpuscular Volume 92.3 Mean Corpuscular Hemoglobin 30.2 Mean Corpuscular Hemoglobin Concent 32.7 Red Cell Distribution Width 15.1 H Platelet Count 161 Mean Platelet Volume 10.9 H Neutrophils % 73.3 Lymphocytes % 13.3 L Monocytes % 7.8 Eosinophils % 4.6 Basophils % 0.6 Nucleated Red Blood Cells % 0.0 Neutrophils # 7.7 H Lymphocytes # 1.4 Monocytes # 0.8 Eosinophils # 0.5 Basophils # 0.1 Nucleated Red Blood Cells # 0.0 Medications Medications Current Medications Acetaminophen (Tylenol Tab) 650 mg Q6H PRN PO PAIN LEVEL 1-3 OR FEVER; Start 01/02/17 at 23:00 Docusate Sodium (Colace) 100 mg Q12H PRN PO CONSTIPATION Last administered on 01/17/17 07:58; Admin Dose 100 MG; Start 01/02/17 at 23:00 Bisacodyl (Dulcolax) 5 mg DAILY PRN PO CONSTIPATION Last administered on 07:59; Admin Dose 5 MG; Start 01/02/17 at 23:00 Aspirin (Aspirin) 81 mg DAILY PO Last administered on 01/18/17 09:03; Admin Dose 81 MG; Start 01/03/17 at 09:00 Clonidine (Catapres) 0.2 mg BID PO Last administered on 01/18/17 20:43; Admin Dose 0.2 MG; Start 01/03/17 at 09:00 Folic Acid (Folic Acid) 1 mg DAILY PO Last administered on 01/18/17 09:06; Admin Dose 1 MG; Start 01/03/17 at 09:00 Hydralazine HCl (Apresoline) 50 mg Q12 PRN PO FOR SBP ABOVE 170 Last administered on 01/19/17 10:47; Admin Dose 50 MG; Start 01/02/17 at 23:00 Labetalol HCl (Normodyne) 100 mg BID PO ; Start 01/03/17 at 09:00; Status Future Hold Multivit/Ca Carb/ B Cmplx/FA/Prenat (Sommer-Samantha) 1 tab DAILY PO Last administered on 01/18/17 09:03; Admin Dose 1 TAB; Start 01/03/17 at 09:00 Nifedipine (Procardia Xl) 60 mg DAILY PO Last administered on 01/18/17 09:06 ; Admin Dose 60 MG; Start 01/03/17 at 09:00 Nifedipine (Procardia Xl) 30 mg HS PO Last administered on 01/18/17 20:41; Admin Dose 30 MG; Start 01/08/17 at 21:00 Metoclopramide HCl (Reglan) 10 mg Q6H PRN IV nausea and vomiting Last administered on 01/19/17 02:03; Admin Dose 10 MG; Start 01/14/17 at 02:30 Trimethobenzamide HCl 200 mg 200 mg Q6H PRN IM NAUSEA AND/OR VOMITING; Start 01/14/17 at 12:00 Ondansetron HCl/ Sodium Chloride (Zofran Inj/NS) 54 ml @ 216 mls/hr Q6H PRN IV NAUSEA AND/OR VOMITING Last administered on 01/15/17 20:32; Admin Dose 216 MLS/HR; Start 01/14/17 at 12:00 Hydralazine HCl (Apresoline) 10 mg Q4H PRN IV ELEVATED BLOOD PRESSURE Last administered on 01/19/17 04:17; Admin Dose 10 MG; Start 01/17/17 at 23:00 Carvedilol (Coreg) 25 mg BID PO Last administered on 01/18/17 20:44; Admin Dose 25 MG; Start 01/18/17 at 21:00 MICHAEL LEYVA MD Jan 19, 2017 10:57
--- NOTE | 2017-01-19 11:04 | PN ---
Date/Time of Note Date/Time of Note DATE: 01/19/17 TIME: 11:02 Assessment/Plan VTE Prophylaxis VTE Prophylaxis Intervention: SCD's Lines/Catheters IV Catheter Type (from Nrsg): jennifer cath w/ pigtail Urinary Cath still in place: No Assessment/Plan Assessment/Plan 31 yo F with ESRD on HD, recent admission for MSSA CLABSI/tunnel infection, found to have large LLE DVT at that time readmitted for worsening LLE pain. Imaging with worsening of clot despite anticoagulation. Pt now sp PD catheter placement, and left groin permAcath removal and iliac venoplasty and R HD line placement. Hospitalization has been complicated by acute encephalopathy 12.9, thought to be opiate mediated. per notes there is concern that a family member or friend had brought drugs to the patient. Now with encephalopathy, suspect toxic/metabolic from pain/psych meds-->resolving #encephalopathy: improved. More alert/awake now that pain meds have been stopped -noncon MRI brain pending -neuro consult pending #LLE DVT also superficial thrombophlebitis: sp L femoral line removal and new R HD line placement (jennifer) per vascular, pt needs to be back on heparin drip for permCath. stopped eliquis resumed heparin drip #ESRD: nephrology on cs for HD-->PD catheter placed 11.30 of note, talked to calender supervisor on service this week. She states it will be several mos until pt is really an optimized from PD standpoint. cont HD with PD augmentation transfer from tele to [facility] Subjective 24 Hr Interval Summary Free Text/Dictation more awake/alert today. wants to eat. wants to be home by Xmas. didnt know she had been in the hospital for 2 weeks Exam/Review of Systems Vital Signs Vitals Vital Signs Date Time Temp Pulse Resp B/P Pulse Ox O2 Delivery O2 Flow Rate FiO2 01/19/17 08:10 84 01/19/17 07:44 98.4 18 192/117 100 01/18/17 16:00 Room Air Intake and Output 01/18/17 01/18/17 01/19/17 15:00 23:00 07:00 Intake Total 120 ml 424 ml Output Total 500 ml 0 ml Balance -380 ml 424 ml Exam +chronic L sided facial droop (2/2 [place] Palsy per patient) no mrg lungs clear abd soft no rashes responds to questions appropriately Results Result Diagram: 01/19/17 0825 01/19/17 0824 Results 24 hrs Laboratory Tests Test 01/18/17 16:22 01/19/17 00:53 01/19/17 07:47 01/19/17 08:24 White Blood Count 8.7 Red Blood Count 3.03 L Hemoglobin 8.9 L Hematocrit 27.9 L Mean Corpuscular Volume 92.1 Mean Corpuscular Hemoglobin 29.4 Mean Corpuscular Hemoglobin Concent 31.9 L Red Cell Distribution Width 15.2 H Platelet Count 162 Mean Platelet Volume 9.7 Neutrophils % 71.0 Lymphocytes % 15.4 Monocytes % 8.8 Eosinophils % 3.8 Basophils % 0.7 Nucleated Red Blood Cells % 0.0 Neutrophils # 6.2 Lymphocytes # 1.4 Monocytes # 0.8 Eosinophils # 0.3 Basophils # 0.1 Nucleated Red Blood Cells # 0.0 Prothrombin Time 16.2 H Prothrombin Time Ratio 1.3 INR International Normalized Ratio 1.28 Activated Partial Thromboplast Time 38.7 H 90.4 *H > 180.0 *H Lab Scanned Report REFERENCE LAB Sodium Level 146 H Potassium Level 4.7 Chloride Level 107 Carbon Dioxide Level 20 L Anion Gap 24 H Blood Urea Nitrogen 76 H Creatinine 12.54 H Glucose Level 104 Calcium Level 9.7 Test 01/19/17 08:25 White Blood Count 10.5 # Red Blood Count 2.85 L Hemoglobin 8.6 L Hematocrit 26.3 L Mean Corpuscular Volume 92.3 Mean Corpuscular Hemoglobin 30.2 Mean Corpuscular Hemoglobin Concent 32.7 Red Cell Distribution Width 15.1 H Platelet Count 161 Mean Platelet Volume 10.9 H Neutrophils % 73.3 Lymphocytes % 13.3 L Monocytes % 7.8 Eosinophils % 4.6 Basophils % 0.6 Nucleated Red Blood Cells % 0.0 Neutrophils # 7.7 H Lymphocytes # 1.4 Monocytes # 0.8 Eosinophils # 0.5 Basophils # 0.1 Nucleated Red Blood Cells # 0.0 Medications Medications Current Medications Acetaminophen (Tylenol Tab) 650 mg Q6H PRN PO PAIN LEVEL 1-3 OR FEVER; Start 01/02/17 at 23:00 Docusate Sodium (Colace) 100 mg Q12H PRN PO CONSTIPATION Last administered on 01/17/17t 07:58; Admin Dose 100 MG; Start 01/02/17 at 23:00 Bisacodyl (Dulcolax) 5 mg DAILY PRN PO CONSTIPATION Last administered on 07:59; Admin Dose 5 MG; Start 01/02/17 at 23:00 Aspirin (Aspirin) 81 mg DAILY PO Last administered on 01/18/17 09:03; Admin Dose 81 MG; Start 01/03/17 at 09:00 Clonidine (Catapres) 0.2 mg BID PO Last administered on 01/18/17 20:43; Admin Dose 0.2 MG; Start 01/03/17 at 09:00 Folic Acid (Folic Acid) 1 mg DAILY PO Last administered on 01/18/17 09:06; Admin Dose 1 MG; Start 01/03/17 at 09:00 Hydralazine HCl (Apresoline) 50 mg Q12 PRN PO FOR SBP ABOVE 170 Last administered on 01/19/17 10:47; Admin Dose 50 MG; Start 01/02/17 at 23:00 Labetalol HCl (Normodyne) 100 mg BID PO ; Start 01/03/17 at 09:00; Status Future Hold Multivit/Ca Carb/ B Cmplx/FA/Prenat (Sommer-Samantha) 1 tab DAILY PO Last administered on 01/18/17 09:03; Admin Dose 1 TAB; Start 01/03/17 at 09:00 Nifedipine (Procardia Xl) 60 mg DAILY PO Last administered on 01/18/17 09:06 ; Admin Dose 60 MG; Start 01/03/17 at 09:00 Nifedipine (Procardia Xl) 30 mg HS PO Last administered on 01/18/17 20:41; Admin Dose 30 MG; Start 01/08/17 at 21:00 Metoclopramide HCl (Reglan) 10 mg Q6H PRN IV nausea and vomiting Last administered on 01/19/17 02:03; Admin Dose 10 MG; Start 01/14/17 at 02:30 Trimethobenzamide HCl 200 mg 200 mg Q6H PRN IM NAUSEA AND/OR VOMITING; Start 01/14/17 at 12:00 Ondansetron HCl/ Sodium Chloride (Zofran Inj/NS) 54 ml @ 216 mls/hr Q6H PRN IV NAUSEA AND/OR VOMITING Last administered on 01/15/17 20:32; Admin Dose 216 MLS/HR; Start 01/14/17 at 12:00 Hydralazine HCl (Apresoline) 10 mg Q4H PRN IV ELEVATED BLOOD PRESSURE Last administered on 01/19/17 04:17; Admin Dose 10 MG; Start 01/17/17 at 23:00 Carvedilol (Coreg) 25 mg BID PO Last administered on 01/18/17 20:44; Admin Dose 25 MG; Start 01/18/17 at 21:00 BHARAT BLACK MD Jan 19, 2017 11:04
--- NOTE | 2017-01-19 12:07 | CONS ---
Date/Time of Note Date/Time of Note DATE: 01/19/17 TIME: 11:59 Assessment/Plan Assessment/Plan Chief Complaint/Hosp Course 31 yo female ESRD, hx of DVT and possibly underlying hypercoagulable state on AC planned for permacath placement. She had transient encephalopathy likely secondary to pain medications, which have now been discontinued. Her mental status is now much improved, would recommend to continue off overly sedating medications. Low dose ativan is ordered prn. She does have a history of drug abuse reported which may be contributing to her delirium/encephalopathy as well. A Head CT on 01/17 shows no abnormality, I do not feel an MRI is necessary at this time as she has improved clinically. Would continue current management as planned, will reconsult as needed Problems: Consultation Date/Type/Reason Admit Date/Time Jan 05, 2017 at 14:32 Date of Consultation: Jan 19, 2017 Type of Consultation: Neurology Reason for Consultation encephalopathy Referring Provider: BHARAT BLACK MD Hx of Present Illness 31 yo female ESRD on dialysis, LE DVT on Eliquis p/w LE Pain remains on anticoagulation for a possible underlying hypercoagulable state planned for permacath placement when she became very encephalopathic. She was started on Baclofen 10 mg TID and Risperdal for increased agitation, seemed to be more encephalopathic after starting the medications. Today she is reportedly much improved, oriented x3, Baclofen has been discontinued. An MRI Brain was ordered to evaluate for possible ischemic event. 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 ), nl mental status Results Result Diagram: 01/19/17 0801/19/17 0824 Results 24 hrs Laboratory Tests Test 01/18/17 16:22 01/19/17 00:53 01/19/17 07:47 01/19/17 08:24 White Blood Count 8.7 Red Blood Count 3.03 L Hemoglobin 8.9 L Hematocrit 27.9 L Mean Corpuscular Volume 92.1 Mean Corpuscular Hemoglobin 29.4 Mean Corpuscular Hemoglobin Concent 31.9 L Red Cell Distribution Width 15.2 H Platelet Count 162 Mean Platelet Volume 9.7 Neutrophils % 71.0 Lymphocytes % 15.4 Monocytes % 8.8 Eosinophils % 3.8 Basophils % 0.7 Nucleated Red Blood Cells % 0.0 Neutrophils # 6.2 Lymphocytes # 1.4 Monocytes # 0.8 Eosinophils # 0.3 Basophils # 0.1 Nucleated Red Blood Cells # 0.0 Prothrombin Time 16.2 H Prothrombin Time Ratio 1.3 INR International Normalized Ratio 1.28 Activated Partial Thromboplast Time 38.7 H 90.4 *H > 180.0 *H Lab Scanned Report REFERENCE LAB Sodium Level 146 H Potassium Level 4.7 Chloride Level 107 Carbon Dioxide Level 20 L Anion Gap 24 H Blood Urea Nitrogen 76 H Creatinine 12.54 H Glucose Level 104 Calcium Level 9.7 Test 01/19/17 08:25 White Blood Count 10.5 # Red Blood Count 2.85 L Hemoglobin 8.6 L Hematocrit 26.3 L Mean Corpuscular Volume 92.3 Mean Corpuscular Hemoglobin 30.2 Mean Corpuscular Hemoglobin Concent 32.7 Red Cell Distribution Width 15.1 H Platelet Count 161 Mean Platelet Volume 10.9 H Neutrophils % 73.3 Lymphocytes % 13.3 L Monocytes % 7.8 Eosinophils % 4.6 Basophils % 0.6 Nucleated Red Blood Cells % 0.0 Neutrophils # 7.7 H Lymphocytes # 1.4 Monocytes # 0.8 Eosinophils # 0.5 Basophils # 0.1 Nucleated Red Blood Cells # 0.0 Medications Medications Current Medications Acetaminophen (Tylenol Tab) 650 mg Q6H PRN PO PAIN LEVEL 1-3 OR FEVER; Start 01/02/17 at 23:00 Docusate Sodium (Colace) 100 mg Q12H PRN PO CONSTIPATION Last administered on 01/17/17t 07:58; Admin Dose 100 MG; Start 01/02/17 at 23:00 Bisacodyl (Dulcolax) 5 mg DAILY PRN PO CONSTIPATION Last administered on 07:59; Admin Dose 5 MG; Start 01/02/17 at 23:00 Aspirin (Aspirin) 81 mg DAILY PO Last administered on 01/18/17 09:03; Admin Dose 81 MG; Start 01/03/17 at 09:00 Clonidine (Catapres) 0.2 mg BID PO Last administered on 01/18/17 20:43; Admin Dose 0.2 MG; Start 01/03/17 at 09:00 Folic Acid (Folic Acid) 1 mg DAILY PO Last administered on 01/18/17 09:06; Admin Dose 1 MG; Start 01/03/17 at 09:00 Hydralazine HCl (Apresoline) 50 mg Q12 PRN PO FOR SBP ABOVE 170 Last administered on 01/19/17 10:47; Admin Dose 50 MG; Start 01/02/17 at 23:00 Labetalol HCl (Normodyne) 100 mg BID PO ; Start 01/03/17 at 09:00; Status Future Hold Multivit/Ca Carb/ B Cmplx/FA/Prenat (Sommer-Samantha) 1 tab DAILY PO Last administered on 01/18/17 09:03; Admin Dose 1 TAB; Start 01/03/17 at 09:00 Nifedipine (Procardia Xl) 60 mg DAILY PO Last administered on 01/18/17 09:06 ; Admin Dose 60 MG; Start 01/03/17 at 09:00 Nifedipine (Procardia Xl) 30 mg HS PO Last administered on 01/18/17 20:41; Admin Dose 30 MG; Start 01/08/17 at 21:00 Metoclopramide HCl (Reglan) 10 mg Q6H PRN IV nausea and vomiting Last administered on 01/19/17 02:03; Admin Dose 10 MG; Start 01/14/17 at 02:30 Trimethobenzamide HCl 200 mg 200 mg Q6H PRN IM NAUSEA AND/OR VOMITING; Start 01/14/17 at 12:00 Ondansetron HCl/ Sodium Chloride (Zofran Inj/NS) 54 ml @ 216 mls/hr Q6H PRN IV NAUSEA AND/OR VOMITING Last administered on 01/15/17 20:32; Admin Dose 216 MLS/HR; Start 01/14/17 at 12:00 Hydralazine HCl (Apresoline) 10 mg Q4H PRN IV ELEVATED BLOOD PRESSURE Last administered on 01/19/17 04:17; Admin Dose 10 MG; Start 01/17/17 at 23:00 Carvedilol (Coreg) 25 mg BID PO Last administered on 01/18/17 20:44; Admin Dose 25 MG; Start 01/18/17 at 21:00 KARRIE JONES MD Jan 19, 2017 12:07
[2017-01-19] MEDS: FOLIC ACID 1 MG TAB PO SCH (12:49)
[2017-01-19] MEDS: NIFEdipine (XL) 60 MG TAB PO SCH (12:50)
[2017-01-19] MEDS: ASPIRIN 81 MG TAB PO SCH (12:50)
[2017-01-19] MEDS: MULTIVIT/CA CARB/B CMPLX/FA TAB PO SCH (12:50)
[2017-01-19] MEDS: HEPARIN 25000 UNITS/250 ML 250 ML IV SCH (19:26)
[2017-01-19] MEDS: NIFEdipine (XL) 30 MG TAB PO SCH (20:55)
[2017-01-20] VITALS (16 sets, daily range): BP systolic 144–182; BP diastolic 59–113; PULSE 73–102; RESP 18–20
[2017-01-20] MEDS ORDERED: hydrALAzine 20 MG INJ IV ONE
[2017-01-20] MEDS ORDERED: ENALAPRILAT 1.25 MG INJ IV ONE (01:00)
[2017-01-20] MEDS: METOCLOPRAMIDE 10 MG INJ IV PRN (01:12)
[2017-01-20 05:21] LABS: BASOPHIL # 0.1 10^3/ul (0.0-0.1); BASOPHILS % 0.5 % (0.0-2.0); EOSINOPHILS # 0.6 10^3/ul (0.0-0.5); EOSINOPHILS % 5.4 % (0.0-7.0); HEMATOCRIT 28.7 % (37.0-47.0); HEMOGLOBIN 9.2 g/dl (12.0-16.0); LYMPHOCYTES # 2.1 10^3/ul (0.8-2.9); MEAN CORPUSCULAR HEMOGLOBIN 29.5 pg (29.0-33.0); MEAN CORPUSCULAR HGB CONC 32.1 g/dl (32.0-37.0); MEAN PLATELET VOLUME 10.8 fl (7.4-10.4); MONOCYTES % 9.3 % (0.0-11.0); NEUTROPHIL # 7.1 10^3/ul (1.6-7.5); NEUTROPHILS % 65.5 % (39.0-77.0); PLATELET COUNT 180 10^3/UL (140-415); RED BLOOD COUNT 3.12 10^6/ul (4.20-5.40); RED CELL DISTRIBUTION WIDTH 15.1 % (11.5-14.5); WHITE BLOOD COUNT 10.9 10^3/ul (4.8-10.8)
[2017-01-20 06:15] LABS: CALCIUM 9.9 mg/dl (8.4-10.2); CREATININE 10.74 mg/dl (0.44-1.00); POTASSIUM 4.4 mmol/L (3.5-5.1)
[2017-01-20] MEDS: ASPIRIN 81 MG TAB PO SCH (08:46)
[2017-01-20] MEDS: MULTIVIT/CA CARB/B CMPLX/FA TAB PO SCH (08:46)
[2017-01-20] MEDS: NIFEdipine (XL) 60 MG TAB PO SCH ×2 (08:47→21:39)
[2017-01-20] MEDS: FOLIC ACID 1 MG TAB PO SCH (08:47)
[2017-01-20] MEDS: SEVELAMER 800 MG TAB PO SCH ×2 (13:16→18:23)
--- NOTE | 2017-01-20 13:30 | PN ---
Date/Time of Note Date/Time of Note DATE: 01/20/17 TIME: 13:27 Assessment/Plan VTE Prophylaxis VTE Prophylaxis Intervention: SCD's Lines/Catheters IV Catheter Type (from Nrsg): KAILA CATH Urinary Cath still in place: No Assessment/Plan Assessment/Plan 31 yo F with ESRD on HD, recent admission for [facility]A CLABSI/tunnel infection, LLE DVT readmitted for worsening LLE pain. Imaging with worsening of clot despite anticoagulation. Pt now sp PD catheter placement, and left groin permAcath removal, iliac venoplasty, R HD line placement (kaila). Hospitalization has been complicated by acute encephalopathy 12.9, thought to be opiate mediated. Encephalopathy has wholly resolved #encephalopathy: RESOLVED #LLE DVT also superficial thrombophlebitis: sp L femoral line removal and new R HD line placement (kaila) per vascular, pt needs to be back on heparin drip for permCath. stopped eliquis resumed heparin drip. Line exchange Monday morning #ESRD: nephrology on cs for HD-->PD catheter placed 11. of note, talked to supervisor carton and can supply on service this week. She states it will be several mos until pt is really an optimized from PD standpoint. cont HD with PD augmentation transfer [facility] Subjective 24 Hr Interval Summary Free Text/Dictation BP a little high overnight. Denies any pain at all on no pain meds. Says she is working on getting a kidney transplant from her sister Exam/Review of Systems Vital Signs Vitals Vital Signs Date Time Temp Pulse Resp B/P Pulse Ox O2 Delivery O2 Flow Rate FiO2 01/20/17 12:00 80 01/20/17 11:42 97.8 19 144/91 96 01/18/17 16:00 Room Air Intake and Output 01/19/17 01/19/17 01/20/17 15:00 23:00 07:00 Intake Total 500 ml 750 ml Output Total 3000 ml Balance -2500 ml 750 ml Exam nad chronic L facial droop no mrg lungs clear abd soft responds to questions appropriately, is awake and alert Results Result Diagram: 01/20/17 0456 01/20/17 0456 Results 24 hrs Laboratory Tests Test 01/19/17 14:48 01/20/17 01:23 01/20/17 04:56 Activated Partial Thromboplast Time 35.4 H > 180.0 *H 80.0 *H White Blood Count 10.9 H Red Blood Count 3.12 L Hemoglobin 9.2 L Hematocrit 28.7 L Mean Corpuscular Volume 92.0 Mean Corpuscular Hemoglobin 29.5 Mean Corpuscular Hemoglobin Concent 32.1 Red Cell Distribution Width 15.1 H Platelet Count 180 Mean Platelet Volume 10.8 H Neutrophils % 65.5 Lymphocytes % 19.0 Monocytes % 9.3 Eosinophils % 5.4 Basophils % 0.5 Nucleated Red Blood Cells % 0.0 Neutrophils # 7.1 Lymphocytes # 2.1 Monocytes # 1.0 H Eosinophils # 0.6 H Basophils # 0.1 Nucleated Red Blood Cells # 0.0 Sodium Level 146 H Potassium Level 4.4 Chloride Level 102 Carbon Dioxide Level 25 Anion Gap 23 H Blood Urea Nitrogen 57 H Creatinine 10.74 H Glucose Level 108 Calcium Level 9.9 Medications Medications Current Medications Acetaminophen (Tylenol Tab) 650 mg Q6H PRN PO PAIN LEVEL 1-3 OR FEVER; Start 01/02/17 at 23:00 Docusate Sodium (Colace) 100 mg Q12H PRN PO CONSTIPATION Last administered on 01/17/17 07:58; Admin Dose 100 MG; Start 01/02/17 at 23:00 Bisacodyl (Dulcolax) 5 mg DAILY PRN PO CONSTIPATION Last administered on 07:59; Admin Dose 5 MG; Start 01/02/17 at 23:00 Aspirin (Aspirin) 81 mg DAILY PO Last administered on 01/20/17 08:46; Admin Dose 81 MG; Start 01/03/17 at 09:00 Clonidine (Catapres) 0.2 mg BID PO Last administered on 01/20/17 08:48; Admin Dose 0.2 MG; Start 01/03/17 at 09:00 Folic Acid (Folic Acid) 1 mg DAILY PO Last administered on 01/20/17 08:47; Admin Dose 1 MG; Start 01/03/17 at 09:00 Hydralazine HCl (Apresoline) 50 mg Q12 PRN PO FOR SBP ABOVE 170 Last administered on 01/19/17 10:47; Admin Dose 50 MG; Start 01/02/17 at 23:00 Labetalol HCl (Normodyne) 100 mg BID PO ; Start 01/03/17 at 09:00; Status Future Hold Multivit/Ca Carb/ B Cmplx/FA/Prenat (Sommer-Samantha) 1 tab DAILY PO Last administered on 01/20/17 08:46; Admin Dose 1 TAB; Start 01/03/17 at 09:00 Nifedipine (Procardia Xl) 60 mg DAILY PO Last administered on 01/20/17 08:47 ; Admin Dose 60 MG; Start 01/03/17 at 09:00 Nifedipine (Procardia Xl) 30 mg HS PO Last administered on 01/19/17 20:55; Admin Dose 30 MG; Start 01/08/17 at 21:00 Metoclopramide HCl (Reglan) 10 mg Q6H PRN IV nausea and vomiting Last administered on 01/20/17 01:12; Admin Dose 10 MG; Start 01/14/17 at 02:30 Trimethobenzamide HCl 200 mg 200 mg Q6H PRN IM NAUSEA AND/OR VOMITING; Start 01/14/17 at 12:00 Ondansetron HCl/ Sodium Chloride (Zofran Inj/NS) 54 ml @ 216 mls/hr Q6H PRN IV NAUSEA AND/OR VOMITING Last administered on 01/15/17 20:32; Admin Dose 216 MLS/HR; Start 01/14/17 at 12:00 Hydralazine HCl (Apresoline) 10 mg Q4H PRN IV ELEVATED BLOOD PRESSURE Last administered on 01/19/17 20:05; Admin Dose 10 MG; Start 01/17/17 at 23:00 Carvedilol (Coreg) 25 mg BID PO Last administered on 01/20/17 08:47; Admin Dose 25 MG; Start 01/18/17 at 21:00 BHARAT BLACK MD Jan 20, 2017 13:30
--- NOTE | 2017-01-20 14:50 | CONS ---
Date/Time of Note Date/Time of Note DATE: 01/20/17 TIME: 14:46 Assessment/Plan Assessment/Plan Chief Complaint/Hosp Course IMPRESSION: 1. Preoperative evaluation prior to placement of a peritoneal dialysis catheter.-negative trop x 2/no change on serial ecg's/Nl EF by most recent echo during last admission with no contraindicated valve lesions. Thus ok to proceed to OR for placement of PD catheter at moderate CV risk without further noninvasive evaluation. Now post-op s/p PD catheter placement and removal of femoral catheter 2. Hypertension-labile 3. Left lower extremity deep venous thrombosis. 4. Anemia-s/p transfusion 5. Prior failed chest wall catheters. 6. s/p PD catheter and illiac venoplasty 7. Lethargy-secondary to ? oversedation Recc: -Continue coreg/procardia/clonidine with uoptitration of procardia to improve BP control -Continue asa -HD for volume depletion -Continue heparin Problems: Consultation Date/Type/Reason Admit Date/Time Jan 05, 2017 at 14:32 Initial Consult Date 01/04/2017 Type of Consultation: cardiology Reason for Consultation Pre-op/HTN Referring Provider: BHARAT BLACK MD Exam/Review of Systems Vital Signs Vitals Vital Signs Date Time Temp Pulse Resp B/P Pulse Ox O2 Delivery O2 Flow Rate FiO2 01/20/17 14:40 97.9 75 18 159/91 98 01/18/17 16:00 Room Air Intake and Output 01/19/17 01/19/17 01/20/17 15:00 23:00 07:00 Intake Total 500 ml 750 ml Output Total 3000 ml Balance -2500 ml 750 ml Exam Review of Systems: CONSTITUTIONAL: No fevers, chills. PULMONARY: No sob CARDIOVASCULAR: No chest pain/palpitations GASTROINTESTINAL: No nausea/vomiting. GENITOURINARY: No hematuria/dysuria. MUSCULOSKELETAL: No myagias/arthalgias. PSYCHIATRIC: The patient denies depression. NEUROLOGIC: No weakness Constitutional: alert Head: normocephalic ENMT: mucosa pink and moist Neck: jvd, supple Respiratory: diminished breath sounds (at bases/B) Cardiovascular: regular rate and rhythm Gastrointestinal: non-tender, soft Musculoskeletal: muscle tone (normal) Extremities: pitting pedal edema (LE L>R) Neurological: other (No focal deficits) Results Result Diagram: 01/20/17 0456 01/20/17 0456 Results 24 hrs Laboratory Tests Test 01/19/17 14:48 01/20/17 01:23 01/20/17 04:56 01/20/17 12:05 Activated Partial Thromboplast Time 35.4 H > 180.0 *H 80.0 *H 161.5 *H White Blood Count 10.9 H Red Blood Count 3.12 L Hemoglobin 9.2 L Hematocrit 28.7 L Mean Corpuscular Volume 92.0 Mean Corpuscular Hemoglobin 29.5 Mean Corpuscular Hemoglobin Concent 32.1 Red Cell Distribution Width 15.1 H Platelet Count 180 Mean Platelet Volume 10.8 H Neutrophils % 65.5 Lymphocytes % 19.0 Monocytes % 9.3 Eosinophils % 5.4 Basophils % 0.5 Nucleated Red Blood Cells % 0.0 Neutrophils # 7.1 Lymphocytes # 2.1 Monocytes # 1.0 H Eosinophils # 0.6 H Basophils # 0.1 Nucleated Red Blood Cells # 0.0 Sodium Level 146 H Potassium Level 4.4 Chloride Level 102 Carbon Dioxide Level 25 Anion Gap 23 H Blood Urea Nitrogen 57 H Creatinine 10.74 H Glucose Level 108 Calcium Level 9.9 Medications Medications Current Medications Acetaminophen (Tylenol Tab) 650 mg Q6H PRN PO PAIN LEVEL 1-3 OR FEVER; Start 01/02/17 at 23:00 Docusate Sodium (Colace) 100 mg Q12H PRN PO CONSTIPATION Last administered on 01/17/17 07:58; Admin Dose 100 MG; Start 01/02/17 at 23:00 Bisacodyl (Dulcolax) 5 mg DAILY PRN PO CONSTIPATION Last administered on 07:59; Admin Dose 5 MG; Start 01/02/17 at 23:00 Aspirin (Aspirin) 81 mg DAILY PO Last administered on 01/20/17 08:46; Admin Dose 81 MG; Start 01/03/17 at 09:00 Clonidine (Catapres) 0.2 mg BID PO Last administered on 01/20/17 08:48; Admin Dose 0.2 MG; Start 01/03/17 at 09:00 Folic Acid (Folic Acid) 1 mg DAILY PO Last administered on 01/20/17 08:47; Admin Dose 1 MG; Start 01/03/17 at 09:00 Hydralazine HCl (Apresoline) 50 mg Q12 PRN PO FOR SBP ABOVE 170 Last administered on 01/19/17 10:47; Admin Dose 50 MG; Start 01/02/17 at 23:00 Labetalol HCl (Normodyne) 100 mg BID PO ; Start 01/03/17 at 09:00; Status Future Hold Multivit/Ca Carb/ B Cmplx/FA/Prenat (Sommer-Samantha) 1 tab DAILY PO Last administered on 01/20/17 08:46; Admin Dose 1 TAB; Start 01/03/17 at 09:00 Nifedipine (Procardia Xl) 60 mg DAILY PO Last administered on 01/20/17 08:47 ; Admin Dose 60 MG; Start 01/03/17 at 09:00 Nifedipine (Procardia Xl) 30 mg HS PO Last administered on 01/19/17 20:55; Admin Dose 30 MG; Start 01/08/17 at 21:00 Metoclopramide HCl (Reglan) 10 mg Q6H PRN IV nausea and vomiting Last administered on 01/20/17 01:12; Admin Dose 10 MG; Start 01/14/17 at 02:30 Trimethobenzamide HCl 200 mg 200 mg Q6H PRN IM NAUSEA AND/OR VOMITING; Start 01/14/17 at 12:00 Ondansetron HCl/ Sodium Chloride (Zofran Inj/NS) 54 ml @ 216 mls/hr Q6H PRN IV NAUSEA AND/OR VOMITING Last administered on 01/15/17 20:32; Admin Dose 216 MLS/HR; Start 01/14/17 at 12:00 Hydralazine HCl (Apresoline) 10 mg Q4H PRN IV ELEVATED BLOOD PRESSURE Last administered on 01/19/17 20:05; Admin Dose 10 MG; Start 01/17/17 at 23:00 Carvedilol (Coreg) 25 mg BID PO Last administered on 01/20/17 08:47; Admin Dose 25 MG; Start 01/18/17 at 21:00 ETHAN MCKINLEY Jan 20, 2017 14:50
[2017-01-20] MEDS: HEPARIN 25000 UNITS/250 ML 250 ML IV SCH (15:55)
[2017-01-21] VITALS (18 sets, daily range): BP systolic 134–167; BP diastolic 62–102; PULSE 72–95; RESP 16–18
[2017-01-21] MEDS: hydrALAzine 20 MG INJ IV PRN (04:01)
[2017-01-21] MEDS: SEVELAMER 800 MG TAB PO SCH ×3 (09:10→17:57)
[2017-01-21] MEDS: FOLIC ACID 1 MG TAB PO SCH (09:10)
[2017-01-21] MEDS: MULTIVIT/CA CARB/B CMPLX/FA TAB PO SCH (09:10)
[2017-01-21] MEDS: ASPIRIN 81 MG TAB PO SCH (09:11)
[2017-01-21] MEDS: NIFEdipine (XL) 60 MG TAB PO SCH ×2 (09:12→20:53)
--- NOTE | 2017-01-21 10:50 | CONS ---
Date/Time of Note Date/Time of Note DATE: 01/21/17 TIME: 10:49 Assessment/Plan Assessment/Plan Additional Assessment/Plan 1. Preoperative evaluation prior to placement of a peritoneal dialysis catheter.-negative trop x 2/no change on serial ecg's/Nl EF by most recent echo during last admission with no contraindicated valve lesions. Thus ok to proceed to OR for placement of PD catheter at moderate CV risk without further noninvasive evaluation. Now post-op s/p PD catheter placement and removal of femoral catheter - NO ACUTE EVENTS, OFF TELE NOW 2. Hypertension-labile- adjust rx as needed with HD team 3. Left lower extremity deep venous thrombosis. 4. Anemia-s/p transfusion 5. Prior failed chest wall catheters. 6. s/p PD catheter and illiac venoplasty 7. Lethargy-secondary to ? oversedation Consultation Date/Type/Reason Admit Date/Time Jan 05, 2017 at 14:32 Type of Consultation: cardiology Referring Provider: BHARAT BLACK MD 24 HR Interval Summary Free Text/Dictation No acute events - off tele now ROS: No fever, no chills, no nausea, no vomiting, no diarrhea/constipation No recent weight changes No chest pain, no PND, no orthopnea No dizziness, blurred vision No thirst, no heat or cold intolerance Exam/Review of Systems Vital Signs Vitals Vital Signs Date Time Temp Pulse Resp B/P Pulse Ox O2 Delivery O2 Flow Rate FiO2 01/21/17 07:54 98.3 93 18 135/78 97 01/18/17 16:00 Room Air Intake and Output 01/20/17 01/20/17 01/21/17 15:00 23:00 07:00 Intake Total 626 ml 195 ml Output Total 700 ml Balance -74 ml 195 ml Exam General: WN/WD/NAD, AOx 2-3 HEENT: Unicetric/atraumatic/EOMI ( follow commands) NECK: JVD elevated, no thyromegaly Lymph: no lymphadenopathy HEART: regular with no S3, II/ systolic murmur at apex LUNGS: Coarse sounds ABD: soft, NT, ND, +BS : Intact Neuro: non focal SKIN: chronic changes EXT: trace edema Results Result Diagram: 01/20/17 0456 01/20/17 0456 Results 24 hrs Laboratory Tests Test 01/20/17 12:05 01/20/17 20:14 12/16/17 04:30 Activated Partial Thromboplast Time 161.5 *H 92.1 *H 83.2 *H Medications Medications Current Medications Acetaminophen (Tylenol Tab) 650 mg Q6H PRN PO PAIN LEVEL 1-3 OR FEVER; Start 01/02/17 at 23:00 Docusate Sodium (Colace) 100 mg Q12H PRN PO CONSTIPATION Last administered on 01/17/17 07:58; Admin Dose 100 MG; Start 01/02/17 at 23:00 Bisacodyl (Dulcolax) 5 mg DAILY PRN PO CONSTIPATION Last administered on 07:59; Admin Dose 5 MG; Start 01/02/17 at 23:00 Aspirin (Aspirin) 81 mg DAILY PO Last administered on 01/21/17 09:11; Admin Dose 81 MG; Start 01/03/17 at 09:00 Clonidine (Catapres) 0.2 mg BID PO Last administered on 01/21/17 09:11; Admin Dose 0.2 MG; Start 01/03/17 at 09:00 Folic Acid (Folic Acid) 1 mg DAILY PO Last administered on 01/21/17 09:10; Admin Dose 1 MG; Start 01/03/17 at 09:00 Hydralazine HCl (Apresoline) 50 mg Q12 PRN PO FOR SBP ABOVE 170 Last administered on 01/19/17 10:47; Admin Dose 50 MG; Start 01/02/17 at 23:00 Labetalol HCl (Normodyne) 100 mg BID PO ; Start 01/03/17 at 09:00; Status Future Hold Multivit/Ca Carb/ B Cmplx/FA/Prenat (Sommer-Samantha) 1 tab DAILY PO Last administered on 01/21/17 09:10; Admin Dose 1 TAB; Start 01/03/17 at 09:00 Nifedipine (Procardia Xl) 60 mg DAILY PO Last administered on 01/21/17 09:12 ; Admin Dose 60 MG; Start 01/03/17 at 09:00 Metoclopramide HCl (Reglan) 10 mg Q6H PRN IV nausea and vomiting Last administered on 01/20/17 01:12; Admin Dose 10 MG; Start 01/14/17 at 02:30 Trimethobenzamide HCl 200 mg 200 mg Q6H PRN IM NAUSEA AND/OR VOMITING; Start 01/14/17 at 12:00 Ondansetron HCl/ Sodium Chloride (Zofran Inj/NS) 54 ml @ 216 mls/hr Q6H PRN IV NAUSEA AND/OR VOMITING Last administered on 01/15/17 20:32; Admin Dose 216 MLS/HR; Start 01/14/17 at 12:00 Hydralazine HCl (Apresoline) 10 mg Q4H PRN IV ELEVATED BLOOD PRESSURE Last administered on 01/21/17 04:01; Admin Dose 10 MG; Start 01/17/17 at 23:00 Carvedilol (Coreg) 25 mg BID PO Last administered on 01/21/17 09:12; Admin Dose 25 MG; Start 01/18/17 at 21:00 Nifedipine (Procardia Xl) 60 mg HS PO Last administered on 01/20/17 21:39; Admin Dose 60 MG; Start 01/20/17 at 21:00 CARINA RITTER MD Jan 21, 2017 10:50
[2017-01-21] MEDS: HEPARIN 25000 UNITS/250 ML 250 ML IV SCH (10:58)
--- NOTE | 2017-01-21 13:23 | PN ---
Date/Time of Note Date/Time of Note DATE: 01/21/17 TIME: 13:22 Assessment/Plan VTE Prophylaxis VTE Prophylaxis Intervention: SCD's Lines/Catheters IV Catheter Type (from Nrsg): KAILA CATH Urinary Cath still in place: No Assessment/Plan Assessment/Plan 31 yo F with ESRD on HD, recent admission forCLABSI/tunnel infection, LLE DVT readmitted for worsening LLE pain. Imaging with worsening of clot despite anticoagulation. Pt now sp PD catheter placement, and left groin permAcath removal, iliac venoplasty, R HD line placement (kaila). Hospitalization has been complicated by acute encephalopathy 12.9, thought to be opiate/baclofen mediated. Encephalopathy has wholly resolved #LLE DVT also superficial thrombophlebitis: sp L femoral line removal and new R HD line placement (kaila) per vascular, pt needs to be back on heparin drip for permCath. stopped eliquis resumed heparin drip. Line exchange Monday #ESRD: nephrology on cs for HD-->PD catheter placed 01.05 of note, talked to desilverizer on service this week. She states it will be several mos until pt is really an optimized from PD standpoint. cont HD with PD augmentation Subjective 24 Hr Interval Summary Free Text/Dictation sleeping while getting hD Exam/Review of Systems Vital Signs Vitals Vital Signs Date Time Temp Pulse Resp B/P Pulse Ox O2 Delivery O2 Flow Rate FiO2 01/21/17 13:14 85 01/21/17 11:30 14 01/21/17 07:54 98.3 135/78 97 01/18/17 16:00 Room Air Intake and Output 01/20/17 01/20/17 01/21/17 15:00 23:00 07:00 Intake Total 626 ml 195 ml Output Total 700 ml Balance -74 ml 195 ml Exam sleeping resp nonlabored abd nondistended no rashes no UE edema Results Result Diagram: 01/20/17 0456 01/20/17 0456 Results 24 hrs Laboratory Tests Test 01/20/17 20:14 01/21/17 04:30 01/21/17 11:31 Activated Partial Thromboplast Time 92.1 *H 83.2 *H Lab Scanned Report REFERENCE LAB Medications Medications Current Medications Acetaminophen (Tylenol Tab) 650 mg Q6H PRN PO PAIN LEVEL 1-3 OR FEVER; Start 01/02/17 at 23:00 Docusate Sodium (Colace) 100 mg Q12H PRN PO CONSTIPATION Last administered on 01/17/17 07:58; Admin Dose 100 MG; Start 01/02/17 at 23:00 Bisacodyl (Dulcolax) 5 mg DAILY PRN PO CONSTIPATION Last administered on 07:59; Admin Dose 5 MG; Start 01/02/17 at 23:00 Aspirin (Aspirin) 81 mg DAILY PO Last administered on 01/21/17 09:11; Admin Dose 81 MG; Start 01/03/17 at 09:00 Clonidine (Catapres) 0.2 mg BID PO Last administered on 01/21/17 09:11; Admin Dose 0.2 MG; Start 01/03/17 at 09:00 Folic Acid (Folic Acid) 1 mg DAILY PO Last administered on 01/21/17 09:10; Admin Dose 1 MG; Start 01/03/17 at 09:00 Hydralazine HCl (Apresoline) 50 mg Q12 PRN PO FOR SBP ABOVE 170 Last administered on 01/19/17 10:47; Admin Dose 50 MG; Start 01/02/17 at 23:00 Labetalol HCl (Normodyne) 100 mg BID PO ; Start 01/03/17 at 09:00; Status Future Hold Multivit/Ca Carb/ B Cmplx/FA/Prenat (Sommer-Samantha) 1 tab DAILY PO Last administered on 01/21/17 09:10; Admin Dose 1 TAB; Start 01/03/17 at 09:00 Nifedipine (Procardia Xl) 60 mg DAILY PO Last administered on 01/21/17 09:12 ; Admin Dose 60 MG; Start 01/03/17 at 09:00 Metoclopramide HCl (Reglan) 10 mg Q6H PRN IV nausea and vomiting Last administered on 01/20/17 01:12; Admin Dose 10 MG; Start 01/14/17 at 02:30 Trimethobenzamide HCl 200 mg 200 mg Q6H PRN IM NAUSEA AND/OR VOMITING; Start 01/14/17 at 12:00 Ondansetron HCl/ Sodium Chloride (Zofran Inj/NS) 54 ml @ 216 mls/hr Q6H PRN IV NAUSEA AND/OR VOMITING Last administered on 01/15/17 20:32; Admin Dose 216 MLS/HR; Start 01/14/17 at 12:00 Hydralazine HCl (Apresoline) 10 mg Q4H PRN IV ELEVATED BLOOD PRESSURE Last administered on 01/21/17 04:01; Admin Dose 10 MG; Start 01/17/17 at 23:00 Carvedilol (Coreg) 25 mg BID PO Last administered on 01/21/17 09:12; Admin Dose 25 MG; Start 01/18/17 at 21:00 Nifedipine (Procardia Xl) 60 mg HS PO Last administered on 01/20/17 21:39; Admin Dose 60 MG; Start 01/20/17 at 21:00 BHARAT BLACK MD Jan 21, 2017 13:23
--- NOTE | 2017-01-21 13:32 | CONS ---
Date/Time of Note Date/Time of Note DATE: 01/21/17 TIME: 13:31 Assessment/Plan Assessment/Plan Chief Complaint/Hosp Course 1. ESRDr 2. Acute deep venous thrombosis of the left lower extremity 3. Chronic pain. 4. Anemia. 5. Hypertension. 6. Vasculopathy. 7. uremia with pruritus. 8. EDEMA LEGS better 9. s/p pd cath placement Problems: Additional Assessment/Plan 1. continue HD 2. PD treatment continued Consultation Date/Type/Reason Admit Date/Time Jan 05, 2017 at 14:32 Type of Consultation: nephrology Referring Provider: BHARAT BLACK MD 24 HR Interval Summary Constitutional: improved Exam/Review of Systems Vital Signs Vitals Vital Signs Date Time Temp Pulse Resp B/P Pulse Ox O2 Delivery O2 Flow Rate FiO2 01/21/17 13:23 84 01/21/17 11:30 14 01/21/17 07:54 98.3 135/78 97 01/18/17 16:00 Room Air Intake and Output 01/20/17 01/20/17 01/21/17 15:00 23:00 07:00 Intake Total 626 ml 195 ml Output Total 700 ml Balance -74 ml 195 ml Exam Constitutional: alert, oriented ENMT: nl external ears & nose Neck: supple Respiratory: diminished breath sounds Cardiovascular: regular rate and rhythm Gastrointestinal: other (peritoneal HD access) Results Result Diagram: 01/20/17 0456 01/20/17 0456 Results 24 hrs Laboratory Tests Test 01/20/17 20:14 01/21/17 04:30 01/21/17 11:31 Activated Partial Thromboplast Time 92.1 *H 83.2 *H Lab Scanned Report REFERENCE LAB Medications Medications Current Medications Acetaminophen (Tylenol Tab) 650 mg Q6H PRN PO PAIN LEVEL 1-3 OR FEVER; Start 01/02/17 at 23:00 Docusate Sodium (Colace) 100 mg Q12H PRN PO CONSTIPATION Last administered on 01/17/17 07:58; Admin Dose 100 MG; Start 01/02/17 at 23:00 Bisacodyl (Dulcolax) 5 mg DAILY PRN PO CONSTIPATION Last administered on 07:59; Admin Dose 5 MG; Start 01/02/17 at 23:00 Aspirin (Aspirin) 81 mg DAILY PO Last administered on 01/21/17 09:11; Admin Dose 81 MG; Start 01/03/17 at 09:00 Clonidine (Catapres) 0.2 mg BID PO Last administered on 01/21/17 09:11; Admin Dose 0.2 MG; Start 01/03/17 at 09:00 Folic Acid (Folic Acid) 1 mg DAILY PO Last administered on 01/21/17 09:10; Admin Dose 1 MG; Start 01/03/17 at 09:00 Hydralazine HCl (Apresoline) 50 mg Q12 PRN PO FOR SBP ABOVE 170 Last administered on 01/19/17 10:47; Admin Dose 50 MG; Start 01/02/17 at 23:00 Labetalol HCl (Normodyne) 100 mg BID PO ; Start 01/03/17 at 09:00; Status Future Hold Multivit/Ca Carb/ B Cmplx/FA/Prenat (Sommer-Samantha) 1 tab DAILY PO Last administered on 01/21/17 09:10; Admin Dose 1 TAB; Start 01/03/17 at 09:00 Nifedipine (Procardia Xl) 60 mg DAILY PO Last administered on 01/21/17 09:12 ; Admin Dose 60 MG; Start 01/03/17 at 09:00 Metoclopramide HCl (Reglan) 10 mg Q6H PRN IV nausea and vomiting Last administered on 01/20/17 01:12; Admin Dose 10 MG; Start 01/14/17 at 02:30 Trimethobenzamide HCl 200 mg 200 mg Q6H PRN IM NAUSEA AND/OR VOMITING; Start 01/14/17 at 12:00 Ondansetron HCl/ Sodium Chloride (Zofran Inj/NS) 54 ml @ 216 mls/hr Q6H PRN IV NAUSEA AND/OR VOMITING Last administered on 01/15/17 20:32; Admin Dose 216 MLS/HR; Start 01/14/17 at 12:00 Hydralazine HCl (Apresoline) 10 mg Q4H PRN IV ELEVATED BLOOD PRESSURE Last administered on 01/21/17 04:01; Admin Dose 10 MG; Start 01/17/17 at 23:00 Carvedilol (Coreg) 25 mg BID PO Last administered on 01/21/17 09:12; Admin Dose 25 MG; Start 01/18/17 at 21:00 Nifedipine (Procardia Xl) 60 mg HS PO Last administered on 01/20/17t 21:39; Admin Dose 60 MG; Start 01/20/17 at 21:00 MANI PRECIADO Jan 21, 2017 13:32
[2017-01-22] MEDS: hydrALAzine 20 MG INJ IV PRN (01:54)
[2017-01-22 02:23] VITALS: BP 144/106; RESP 18
[2017-01-22] MEDS: HEPARIN 25000 UNITS/250 ML 250 ML IV SCH ×2 (03:58→22:23)
[2017-01-22 08:12] VITALS: BP 148/89; RESP 16
[2017-01-22] MEDS: ASPIRIN 81 MG TAB PO SCH (08:43)
[2017-01-22] MEDS: MULTIVIT/CA CARB/B CMPLX/FA TAB PO SCH (08:43)
[2017-01-22] MEDS: FOLIC ACID 1 MG TAB PO SCH (08:43)
[2017-01-22] MEDS: SEVELAMER 800 MG TAB PO SCH ×3 (08:43→18:56)
[2017-01-22] MEDS: NIFEdipine (XL) 60 MG TAB PO SCH ×2 (08:44→22:35)
[2017-01-22 08:45] VITALS: BP 156/98; PULSE 83
--- NOTE | 2017-01-22 08:47 | CONS ---
Date/Time of Note Date/Time of Note DATE: 01/22/17 TIME: 08:46 Assessment/Plan Assessment/Plan Additional Assessment/Plan 1. Preoperative evaluation prior to placement of a peritoneal dialysis catheter.-negative trop x 2/no change on serial ecg's/Nl EF by most recent echo during last admission with no contraindicated valve lesions. Thus ok to proceed to OR for placement of PD catheter at moderate CV risk without further noninvasive evaluation. Now post-op s/p PD catheter placement and removal of femoral catheter - NO ACUTE EVENTS, OFF TELE NOW - PROCEDURE PLANNED MONDAY - OK to proceed. 2. Hypertension-labile- adjust rx as needed with HD team - better now 3. Left lower extremity deep venous thrombosis. 4. Anemia-s/p transfusion 5. Prior failed chest wall catheters. 6. s/p PD catheter and illiac venoplasty 7. Lethargy-secondary to ? oversedation Consultation Date/Type/Reason Admit Date/Time Jan 05, 2017 at 14:32 Type of Consultation: nephrology Referring Provider: BHARAT BLACK MD 24 HR Interval Summary Free Text/Dictation Much better overall - tolerated HD Monday with no issues. ROS: No fever, no chills, no nausea, no vomiting, no diarrhea/constipation No recent weight changes No chest pain, no PND, no orthopnea No dizziness, blurred vision No thirst, no heat or cold intolerance Exam/Review of Systems Vital Signs Vitals Vital Signs Date Time Temp Pulse Resp B/P Pulse Ox O2 Delivery O2 Flow Rate FiO2 01/22/17 08:12 98.3 91 16 148/89 99 01/18/17 16:00 Room Air Intake and Output 01/21/17 01/21/17 01/22/17 14:59 22:59 06:59 Intake Total 1075 ml 1600 ml 250 ml Output Total 3000 ml 2500 ml Balance -1925 ml -900 ml 250 ml Exam General: WN/WD/NAD, AOx 3 HEENT: Unicetric/atraumatic/EOMI (follows commands) NECK: JVD elevated, no thyromegaly Lymph: no lymphadenopathy HEART: regular with no S3, II/ systolic murmur at apex LUNGS: Coarse sounds ABD: soft, NT, ND, +BS : Intact Neuro: non focal SKIN: chronic changes EXT: trace edema Results Result Diagram: 01/20/17 0456 01/20/17 0456 Results 24 hrs Laboratory Tests Test 01/21/17 11:31 01/22/17 05:35 Lab Scanned Report REFERENCE LAB Activated Partial Thromboplast Time 83.4 *H Medications Medications Current Medications Acetaminophen (Tylenol Tab) 650 mg Q6H PRN PO PAIN LEVEL 1-3 OR FEVER; Start 01/02/17 at 23:00 Docusate Sodium (Colace) 100 mg Q12H PRN PO CONSTIPATION Last administered on 01/17/17 07:58; Admin Dose 100 MG; Start 01/02/17 at 23:00 Bisacodyl (Dulcolax) 5 mg DAILY PRN PO CONSTIPATION Last administered on 07:59; Admin Dose 5 MG; Start 01/02/17 at 23:00 Aspirin (Aspirin) 81 mg DAILY PO Last administered on 01/22/17 08:43; Admin Dose 81 MG; Start 01/03/17 at 09:00 Clonidine (Catapres) 0.2 mg BID PO Last administered on 01/22/17 08:44; Admin Dose 0.2 MG; Start 01/03/17 at 09:00 Folic Acid (Folic Acid) 1 mg DAILY PO Last administered on 01/22/17 08:43; Admin Dose 1 MG; Start 01/03/17 at 09:00 Hydralazine HCl (Apresoline) 50 mg Q12 PRN PO FOR SBP ABOVE 170 Last administered on 01/19/17 10:47; Admin Dose 50 MG; Start 01/02/17 at 23:00 Labetalol HCl (Normodyne) 100 mg BID PO ; Start 01/03/17 at 09:00; Status Future Hold Multivit/Ca Carb/ B Cmplx/FA/Prenat (Sommer-Samantha) 1 tab DAILY PO Last administered on 01/22/17 08:43; Admin Dose 1 TAB; Start 01/03/17 at 09:00 Nifedipine (Procardia Xl) 60 mg DAILY PO Last administered on 01/22/17 08:44 ; Admin Dose 60 MG; Start 01/03/17 at 09:00 Metoclopramide HCl (Reglan) 10 mg Q6H PRN IV nausea and vomiting Last administered on 01/20/17 01:12; Admin Dose 10 MG; Start 01/14/17 at 02:30 Trimethobenzamide HCl 200 mg 200 mg Q6H PRN IM NAUSEA AND/OR VOMITING; Start 01/14/17 at 12:00 Ondansetron HCl/ Sodium Chloride (Zofran Inj/NS) 54 ml @ 216 mls/hr Q6H PRN IV NAUSEA AND/OR VOMITING Last administered on 01/15/17 20:32; Admin Dose 216 MLS/HR; Start 01/14/17 at 12:00 Hydralazine HCl (Apresoline) 10 mg Q4H PRN IV ELEVATED BLOOD PRESSURE Last administered on 01/22/17 01:54; Admin Dose 10 MG; Start 01/17/17 at 23:00 Carvedilol (Coreg) 25 mg BID PO Last administered on 01/22/17 08:44; Admin Dose 25 MG; Start 01/18/17 at 21:00 Nifedipine (Procardia Xl) 60 mg HS PO Last administered on 01/21/17 20:53; Admin Dose 60 MG; Start 01/20/17 at 21:00 CARINA RITTER MD Jan 22, 2017 08:47
--- NOTE | 2017-01-22 13:37 | CONS ---
Date/Time of Note Date/Time of Note DATE: 01/22/17 TIME: 13:36 Assessment/Plan Assessment/Plan Chief Complaint/Hosp Course 1. ESRDr 2. Acute deep venous thrombosis of the left lower extremity 3. Chronic pain. 4. Anemia. 5. Hypertension. 6. Vasculopathy. 7. uremia 8. EDEMA LEGS better 9. s/p pd cath placement Problems: Additional Assessment/Plan 1. continue HD 2. PD access teaching received along with flashes Consultation Date/Type/Reason Admit Date/Time Jan 05, 2017 at 14:32 Type of Consultation: nephrology Reason for Consultation Dr Knox Referring Provider: BHARAT BLACK MD Exam/Review of Systems Vital Signs Vitals Vital Signs Date Time Temp Pulse Resp B/P Pulse Ox O2 Delivery O2 Flow Rate FiO2 01/22/17 08:45 83 156/98 01/22/17 08:12 98.3 16 99 01/18/17 16:00 Room Air Intake and Output 01/21/17 01/21/17 01/22/17 15:00 23:00 07:00 Intake Total 880 ml 1600 ml 250 ml Output Total 3000 ml 2500 ml Balance -2120 ml -900 ml 250 ml Exam Constitutional: alert, oriented Respiratory: clear to auscultation Cardiovascular: regular rate and rhythm Gastrointestinal: soft Results Result Diagram: 01/20/17 0456 01/20/17 0456 Results 24 hrs Laboratory Tests Test 01/22/17 05:35 Activated Partial Thromboplast Time 83.4 *H Medications Medications Current Medications Acetaminophen (Tylenol Tab) 650 mg Q6H PRN PO PAIN LEVEL 1-3 OR FEVER; Start 01/02/17 at 23:00 Docusate Sodium (Colace) 100 mg Q12H PRN PO CONSTIPATION Last administered on 01/17/17 07:58; Admin Dose 100 MG; Start 01/02/17 at 23:00 Bisacodyl (Dulcolax) 5 mg DAILY PRN PO CONSTIPATION Last administered on 07:59; Admin Dose 5 MG; Start 01/02/17 at 23:00 Aspirin (Aspirin) 81 mg DAILY PO Last administered on 01/22/17 08:43; Admin Dose 81 MG; Start 01/03/17 at 09:00 Clonidine (Catapres) 0.2 mg BID PO Last administered on 01/22/17 08:44; Admin Dose 0.2 MG; Start 01/03/17 at 09:00 Folic Acid (Folic Acid) 1 mg DAILY PO Last administered on 01/22/17 08:43; Admin Dose 1 MG; Start 01/03/17 at 09:00 Hydralazine HCl (Apresoline) 50 mg Q12 PRN PO FOR SBP ABOVE 170 Last administered on 01/19/17 10:47; Admin Dose 50 MG; Start 01/02/17 at 23:00 Labetalol HCl (Normodyne) 100 mg BID PO ; Start 01/03/17 at 09:00; Status Future Hold Multivit/Ca Carb/ B Cmplx/FA/Prenat (Sommer-Samantha) 1 tab DAILY PO Last administered on 01/22/17 08:43; Admin Dose 1 TAB; Start 01/03/17 at 09:00 Nifedipine (Procardia Xl) 60 mg DAILY PO Last administered on 01/22/17 08:44 ; Admin Dose 60 MG; Start 01/03/17 at 09:00 Metoclopramide HCl (Reglan) 10 mg Q6H PRN IV nausea and vomiting Last administered on 01/20/17 01:12; Admin Dose 10 MG; Start 01/14/17 at 02:30 Trimethobenzamide HCl 200 mg 200 mg Q6H PRN IM NAUSEA AND/OR VOMITING; Start 01/14/17 at 12:00 Ondansetron HCl/ Sodium Chloride (Zofran Inj/NS) 54 ml @ 216 mls/hr Q6H PRN IV NAUSEA AND/OR VOMITING Last administered on 01/15/17 20:32; Admin Dose 216 MLS/HR; Start 01/14/17 at 12:00 Hydralazine HCl (Apresoline) 10 mg Q4H PRN IV ELEVATED BLOOD PRESSURE Last administered on 01/22/17 01:54; Admin Dose 10 MG; Start 01/17/17 at 23:00 Carvedilol (Coreg) 25 mg BID PO Last administered on 01/22/17 08:44; Admin Dose 25 MG; Start 01/18/17 at 21:00 Nifedipine (Procardia Xl) 60 mg HS PO Last administered on 01/21/17 20:53; Admin Dose 60 MG; Start 01/20/17 at 21:00 MANI PRECIADO Jan 22, 2017 13:37
--- NOTE | 2017-01-22 14:46 | PN ---
Date/Time of Note Date/Time of Note DATE: 01/22/17 TIME: 14:45 Assessment/Plan VTE Prophylaxis VTE Prophylaxis Intervention: SCD's Lines/Catheters IV Catheter Type (from Nrsg): KAILA CATH Urinary Cath still in place: No Assessment/Plan Assessment/Plan 31 yo F with ESRD on HD, recent admission forCLABSI/tunnel infection, LLE DVT readmitted for worsening LLE pain. Imaging with worsening of clot despite anticoagulation. Pt now sp PD catheter placement, and left groin permAcath removal, iliac venoplasty, R HD line placement (kaila). Hospitalization has been complicated by acute encephalopathy 12.9, thought to be opiate/baclofen mediated. Encephalopathy has wholly resolved #LLE DVT also superficial thrombophlebitis: sp L femoral line removal and new R HD line placement (kaila) per vascular, pt needs to be back on heparin drip for permCath. stopped eliquis resumed heparin drip. Line exchange Monday morning RESUME ELIQUIS AFTER PERMCATH PLACEMENT. CONFIRM TIMING WITH VASCULAR SURGON #ESRD: nephrology on cs for HD-->PD catheter placed 11.30 of note, talked to ged teacher on service this week. She states it will be several mos until pt is really an optimized from PD standpoint. cont HD with PD augmentation Subjective 24 Hr Interval Summary Free Text/Dictation awake alert in bed. excited to possibly get to go home tomorrow. NO PAIN Exam/Review of Systems Vital Signs Vitals Vital Signs Date Time Temp Pulse Resp B/P Pulse Ox O2 Delivery O2 Flow Rate FiO2 01/22/17 08:45 83 156/98 01/22/17 08:12 98.3 16 99 01/18/17 16:00 Room Air Intake and Output 01/21/17 01/21/17 01/22/17 15:00 23:00 07:00 Intake Total 880 ml 1600 ml 250 ml Output Total 3000 ml 2500 ml Balance -2120 ml -900 ml 250 ml Exam nad no mrg lungs clear abd soft no rashes Results Result Diagram: 01/20/17 0456 01/20/17 0456 Results 24 hrs Laboratory Tests Test 01/22/17 05:35 Activated Partial Thromboplast Time 83.4 *H Medications Medications Current Medications Acetaminophen (Tylenol Tab) 650 mg Q6H PRN PO PAIN LEVEL 1-3 OR FEVER; Start 01/02/17 at 23:00 Docusate Sodium (Colace) 100 mg Q12H PRN PO CONSTIPATION Last administered on 01/17/17 07:58; Admin Dose 100 MG; Start 01/02/17 at 23:00 Bisacodyl (Dulcolax) 5 mg DAILY PRN PO CONSTIPATION Last administered on 07:59; Admin Dose 5 MG; Start 01/02/17 at 23:00 Aspirin (Aspirin) 81 mg DAILY PO Last administered on 01/22/17 08:43; Admin Dose 81 MG; Start 01/03/17 at 09:00 Clonidine (Catapres) 0.2 mg BID PO Last administered on 01/22/17 08:44; Admin Dose 0.2 MG; Start 01/03/17 at 09:00 Folic Acid (Folic Acid) 1 mg DAILY PO Last administered on 01/22/17 08:43; Admin Dose 1 MG; Start 01/03/17 at 09:00 Hydralazine HCl (Apresoline) 50 mg Q12 PRN PO FOR SBP ABOVE 170 Last administered on 01/19/17 10:47; Admin Dose 50 MG; Start 01/02/17 at 23:00 Labetalol HCl (Normodyne) 100 mg BID PO ; Start 01/03/17 at 09:00; Status Future Hold Multivit/Ca Carb/ B Cmplx/FA/Prenat (Sommer-Samantha) 1 tab DAILY PO Last administered on 01/22/17 08:43; Admin Dose 1 TAB; Start 01/03/17 at 09:00 Nifedipine (Procardia Xl) 60 mg DAILY PO Last administered on 01/22/17 08:44 ; Admin Dose 60 MG; Start 01/03/17 at 09:00 Metoclopramide HCl (Reglan) 10 mg Q6H PRN IV nausea and vomiting Last administered on 01/20/17 01:12; Admin Dose 10 MG; Start 01/14/17 at 02:30 Trimethobenzamide HCl 200 mg 200 mg Q6H PRN IM NAUSEA AND/OR VOMITING; Start 01/14/17 at 12:00 Ondansetron HCl/ Sodium Chloride (Zofran Inj/NS) 54 ml @ 216 mls/hr Q6H PRN IV NAUSEA AND/OR VOMITING Last administered on 01/15/17 20:32; Admin Dose 216 MLS/HR; Start 01/14/17 at 12:00 Hydralazine HCl (Apresoline) 10 mg Q4H PRN IV ELEVATED BLOOD PRESSURE Last administered on 01/22/17 01:54; Admin Dose 10 MG; Start 01/17/17 at 23:00 Carvedilol (Coreg) 25 mg BID PO Last administered on 01/22/17 08:44; Admin Dose 25 MG; Start 01/18/17 at 21:00 Nifedipine (Procardia Xl) 60 mg HS PO Last administered on 01/21/17 20:53; Admin Dose 60 MG; Start 01/20/17 at 21:00 BHARAT BLACK MD Jan 22, 2017 14:46
--- NOTE | 2017-01-22 14:50 | RADRPT ---
PROCEDURE: MRI Brain without contrast. CLINICAL INDICATION: Encephalopathy TECHNIQUE: Multiplanar MRI of the brain without contrast was performed on a 3.0 T scanner with the following sequences obtained: T1-weighted, T2-weighted/FLAIR, diffusion weighted (with ADC map), GR E. COMPARISON: CT brain 01/17/2017 FINDINGS: No acute/recent ischemic infarction or intracranial hemorrhage / blood degradation products are iden tified. No extra-axial fluid collection is seen. There is no mass effect. No midline shift is identified. The ventricles and sulci are within normal limits for size and configuration. Mild areas of increased T2 / FLAIR signal intensity are present in the periventricular and deep whit e matter, nonspecific but likely related to chronic small vessel ischemic changes. Partly empty pushpa la is noted. Flow voids are identified in the proximal intracranial arteries and dural sinuses suggesting patency . The mastoid air cells and paranasal sinuses are grossly clear. IMPRESSION: 1. No evidence of acute intracranial pathology. 2. Mild chronic small vessel ischemic changes. RPTAT: HESO .Edinson Koroma MD, Date Time Electronically viewed and signed by .Edinson Koroma MD, on 01/22/2017 14:49 .O/
[2017-01-22 15:43] VITALS: BP 129/76; RESP 16
--- NOTE | 2017-01-22 18:42 | PN ---
Date/Time of Note Date/Time of Note DATE: 01/22/17 TIME: 18:41 Assessment/Plan Lines/Catheters IV Catheter Type (from [facility]): KAILA CATH Sheppard in Place (from [facility]): No Assessment/Plan Chief Complaint/Hosp Course -Endstage renal disease and central occlusion and caval thrombosis: It seems the patient had progressed in terms of her left lower extremity deep venous thrombosis. Patient did have deep venous thrombosis findings in the common femoral vein in the past, identified during her angiogram about few weeks ago; therefore, I would not necessarily say that it is an acute finding. However, the patient did have superficial thrombophlebitis of her left greater saphenous vein and now resolved -S/P left groin Perm catheter removal and iliac venoplasty -S/P Emergent right Kaila catheter placement 01/14 -LLE DVT:-it seems to be chronic in nature and she has some component of hypercoagulable state. Recommend to continue with her anticoagulation -Patient will need to be on heparin gtt for anticoagulation and Hold on eliquis for 48hrs prior to perm catheter placement. Will schedule for tomorrow -PT/OT and OOB FWB -Elevate LLE while at rest -Discussed findings, plan and management with the patient, however not sure if she understands, also importance of compliance was also discussed -Thank you for allowing us to partake in the care of your patient. Please call with any questions. Problems: Subjective 24 Hr Interval Summary no new vascular events overnight Exam/Review of Systems Vital Signs Vitals Vital Signs Date Time Temp Pulse Resp B/P Pulse Ox O2 Delivery O2 Flow Rate FiO2 01/22/17 15:43 98.3 81 16 129/76 98 01/18/17 16:00 Room Air Intake and Output 01/21/17 01/21/17 01/22/17 15:00 23:00 07:00 Intake Total 880 ml 1600 ml 250 ml Output Total 3000 ml 2500 ml Balance -2120 ml -900 ml 250 ml Exam Free Text/Dictation GENERAL: awake and can answer questions PULMONARY: Clear to auscultation bilaterally. CARDIOVASCULAR: S1, S2 present. ABDOMEN: Soft, nontender, nondistended. Bowel sounds positive. Truncal obesity. PD catheter intact RIGHT LOWER EXTREMITY: Palpable femoral pulse, faint pedal pulse. Motor, sensory intact. Cap refill 2 to 3 seconds. catheter intact LEFT LOWER EXTREMITY: Palpable femoral pulse. Groin clean and dry. Faint pedal pulse. Motor and sensory intact. Edema of the lower leg 1+ Results Result Diagram: 01/20/17 0456 01/20/17 0456 JULISSA NI MD Jan 22, 2017 18:42
[2017-01-22 20:13] VITALS: BP 144/68; RESP 16
[2017-01-23] VITALS (7 sets, daily range): BP systolic 121–181; BP diastolic 81–112; PULSE 64–74; RESP 15–29
[2017-01-23] MEDS ORDERED: CEFAZOLIN 1 GM INJ ONE (07:00)
--- NOTE | 2017-01-23 07:18 | HPN ---
Date/Time of Note Date/Time of Note DATE: 01/23/17 TIME: 07:18 Interval H&P Admission Note Pt. seen H&P reviewed: No system changes JULISSA NI MD Jan 23, 2017 07:18
[2017-01-23] MEDS ORDERED: LIDOCAINE 1% (MPF) 30 ML INJ ONE (07:24)
[2017-01-23] MEDS ORDERED: HEPARIN 1000 UNITS/ML 10 ML INJ ONE (07:24)
[2017-01-23] MEDS ORDERED: BUPIVACAINE 0.25% (MPF) 30 ML INJ ONE (07:41)
[2017-01-23] MEDS ORDERED: MIDAZOLAM 1 MG/ML 2 ML INJ ONE (07:42)
[2017-01-23] MEDS ORDERED: LIDOCAINE 2% (SDV) 5 ML INJ ONE (08:06)
[2017-01-23] MEDS ORDERED: PROPOFOL 20 ML ONE (08:06)
--- NOTE | 2017-01-23 08:23 | SIPON ---
Date/Time of Note Date/Time of Note DATE: 01/23/17 TIME: 08:22 Operative Report Preoperative Diagnosis ESRD Postoperative Diagnosis SAME Operation/Procedure Performed RIGHT CFV PERMANENT CATHETER PLACEMENT Surgeon see signature line commercial real estate assistant NONE Anesthesia: moderate sedation Estimated blood loss: minimal Transfusion Required none Specimen NONE Grafts/Implants none Complications none JULISSA NI MD Jan 23, 2017 08:23
[2017-01-23] MEDS: FENTAnyl 50 MCG/ML VIAL IV PRN ×2 (08:27→08:45)
[2017-01-23] MEDS ORDERED: LABETALOL HCL 20MG INJ IV PRN (08:30)
[2017-01-23] MEDS ORDERED: FENTAnyl 50 MCG/ML VIAL IV PRN (08:30)
[2017-01-23] MEDS ORDERED: hydrALAzine 20 MG INJ IV PRN (08:30)
[2017-01-23] MEDS ORDERED: ONDANSETRON 4 MG INJ IV PRN (08:30)
--- NOTE | 2017-01-23 09:00 | OPR ---
DATE OF OPERATION: 01/23/2017 SURGEON: Julissa Ni MD PREOPERATIVE DIAGNOSIS: End-stage renal disease, central occlusion and stenosis, left iliac vein st enosis and cable stenosis. POSTOPERATIVE DIAGNOSIS: End-stage renal disease, central occlusion and stenosis, left iliac vein s tenosis and cable stenosis. ANESTHESIA: Local with moderate sedation. ESTIMATED BLOOD LOSS: Minimal. COMPLICATIONS: None. HEPARIN: As recorded. CONTRAST: None. ACCESS: Right common femoral vein. CLOSURE: Manual compression and 2-0 nylon suture. INDICATIONS: This is a 31-year-old female who has had a complicated past medical history in regards to end-stage renal disease and central occlusion. Patient has had a history of bilateral chest and lower extremity permanent hemodialysis catheters, in which as of recent, the patient had a left manuel in PermCath exchanged. Patient also had developed significant ilial caval stenosis in which interve ntions were done to provide adequate access to have appropriate venous drainage. However, the patie nt developed worsening left lower extremity edema, in which required us to remove the permanent cath eter. Further, the patient has undergone a new peritoneal dialysis catheter placement in which she would require some time for healing prior to having it used therefore placement of a new right groin permanent catheter was recommended. The patient was informed, alternatives, risk and benefits of h er procedure and she has agreed to proceed understanding all that is involved. Risks including but not limited to bleeding, thrombosis, embolization, myocardial infarction, , device malfunction, stroke, infection, nephrotoxicity, and patient has agreed to proceed. PROCEDURE: 1. Ultrasound-guided access of the right common femoral vein. 2. Placement of permanent tunneled hemodialysis catheter. 2. Fluoroscopy. DESCRIPTION OF PROCEDURE: The patient was brought into the angio suite and positioned in supine pos ition on the fluoroscopic table. Sedation was administered without any complications by our anesthe lamar team. The right groin was then shaved and prepped and draped in usual standard sterile fashion. Time out and appropriate sites were marked and confirmed. Local anesthesia was then infiltrated i n the region of the right common femoral vein. The previous Aris catheter was removed and manual compression was held. Once hemostasis was achieved, the right common femoral vein was then cannula [place] with a micro access needle under ultrasound guidance and a guidewire was advanced into the iliac vein under fluoroscopic guidance. Images were recorded. The needle was then removed and a microca theter was placed. The Amplatz wire was then passed into the infrarenal aorta under fluoroscopic gu idance followed by multiple dilators over the wire. At this point, while maintaining pressure on ou r access, a stab incision was made in the right anterolateral aspect of the upper thigh. Using our permanent catheter tunneler our PermCath was tunneled towards the right groin puncture site. Once t his was achieved, we went ahead and placed a peel away sheath over the wire. The inner dilator and the wire were removed from the peelaway sheath. At this point, using our access of the peelaway she ath, we went ahead and placed a permanent catheter and suprahepatic vena cava. This was confirmed t hroughout with fluoroscopy. Patient tolerated this aspect of the procedure well, both ports were fl ushed with heparinized saline solution. Heparin was placed in each port of about 3 mL. The cathete r was secured with a 3-0 nylon suture. The right groin puncture site was closed with 2-0 Vicryl sut ure. A sterile dressing was applied. The patient tolerated the procedure well and was taken to the postanesthesia care unit in stable condition. All instrument, sponge and needle counts were correc t x2. PLAN: May used the new right groin tunneled catheter for hemodialysis. We will schedule removal of the tunneled catheter once the patient is cleared to use her peritoneal dialysis. Dictated By: JULISSA ZUÑIGA/BRADLEY Conf#: [id number] DID#: [id number] CC: JULISSA NI MD; SWATI GAFFNEY MD;*End*
[2017-01-23] MEDS ORDERED: APIXABAN 5 MG TABLET PO SCH (10:00)
[2017-01-23] MEDS: ASPIRIN 81 MG TAB PO SCH (10:16)
[2017-01-23] MEDS: FOLIC ACID 1 MG TAB PO SCH (10:18)
[2017-01-23] MEDS: NIFEdipine (XL) 60 MG TAB PO SCH (10:18)
[2017-01-23] MEDS: MULTIVIT/CA CARB/B CMPLX/FA TAB PO SCH (10:19)
[2017-01-23] MEDS: SEVELAMER 800 MG TAB PO SCH (10:19)
[2017-01-23] MEDS ORDERED: oxyCODONE 5 MG TAB PO SCH (11:15)
[2017-01-23] MEDS ORDERED: morphine 2 MG INJ IV STA (11:44)
--- NOTE | 2017-01-23 12:46 | CONS ---
Date/Time of Note Date/Time of Note DATE: 01/23/17 TIME: 12:40 Assessment/Plan Assessment/Plan Chief Complaint/Hosp Course 31 Y/O withh 1. ESRD with hyperkalemia, s/p rt groin permacath 2. Acute deep venous thrombosis of the left lower extremity on heparin drip 3. Chronic pain. 4. Anemia. 5. Hypertension. 6. Vasculopathy. 7. uremia with pruritus. 8. s/p pd cath placement 9 AMS likely metabolic enacephalopathy due to drugs resolved Recs - Spoke to HD center at [facility] as since pt was unable to provide any valid address could not accept the patient, spoke to hD center, apparently pt had provided her address and one of family members called and told thats not her address so she could not be accepted there - Spoke to CM who will call pts previous HD center at [facility] for confirmation of spot for HD and will be informed that once PD trainining done and PD cathether functional then can do PD Problems: Consultation Date/Type/Reason Admit Date/Time Jan 05, 2017 at 14:32 Type of Consultation: nephrology Referring Provider: BHARAT BLACK MD 24 HR Interval Summary Free Text/Dictation Pt had rt femoral permcathether placement today Pt wanted to leave AMA after procdure Primary team, MAYE, manager production, RN at bedside and convinced patient to stay until meds/HD center sorted out Exam/Review of Systems Vital Signs Vitals Vital Signs Date Time Temp Pulse Resp B/P Pulse Ox O2 Delivery O2 Flow Rate FiO2 01/23/17 09:30 97.9 76 16 150/87 100 01/23/17 08:38 Room Air Intake and Output 01/22/17 01/22/17 01/23/17 15:00 23:00 07:00 Intake Total 780 ml 1190.00 ml 627.5 ml Output Total 2 ml Balance 780 ml 1190.00 ml 625.5 ml Exam Constitutional: confused Head: normocephalic Neck: supple Respiratory: diminished breath sounds Cardiovascular: regular rate and rhythm Gastrointestinal: soft Abdomen : PD cath in LLQ Musculoskeletal: muscle weakness, swelling (left leg) R permacath Results Result Diagram: 01/20/17 0456 01/23/17 0701 Results 24 hrs Laboratory Tests Test 01/23/17 05:34 01/23/17 07:01 Activated Partial Thromboplast Time 114.9 *H Potassium Level 5.1 Medications Medications Current Medications Acetaminophen (Tylenol Tab) 650 mg Q6H PRN PO PAIN LEVEL 1-3 OR FEVER; Start 01/02/17 at 23:00 Docusate Sodium (Colace) 100 mg Q12H PRN PO CONSTIPATION Last administered on 01/17/17 07:58; Admin Dose 100 MG; Start 01/02/17 at 23:00 Bisacodyl (Dulcolax) 5 mg DAILY PRN PO CONSTIPATION Last administered on 07:59; Admin Dose 5 MG; Start 01/02/17 at 23:00 Aspirin (Aspirin) 81 mg DAILY PO Last administered on 01/23/17 10:16; Admin Dose 81 MG; Start 01/03/17 at 09:00 Clonidine (Catapres) 0.2 mg BID PO Last administered on 01/23/17 10:21; Admin Dose 0.2 MG; Start 01/03/17 at 09:00 Folic Acid (Folic Acid) 1 mg DAILY PO Last administered on 01/23/17 10:18; Admin Dose 1 MG; Start 01/03/17 at 09:00 Hydralazine HCl (Apresoline) 50 mg Q12 PRN PO FOR SBP ABOVE 170 Last administered on 01/19/17 10:47; Admin Dose 50 MG; Start 01/02/17 at 23:00 Labetalol HCl (Normodyne) 100 mg BID PO ; Start 01/03/17 at 09:00; Status Future Hold Multivit/Ca Carb/ B Cmplx/FA/Prenat (Sommer-Samantha) 1 tab DAILY PO Last administered on 01/23/17 10:19; Admin Dose 1 TAB; Start 01/03/17 at 09:00 Nifedipine (Procardia Xl) 60 mg DAILY PO Last administered on 01/23/17 10:18 ; Admin Dose 60 MG; Start 01/03/17 at 09:00 Metoclopramide HCl (Reglan) 10 mg Q6H PRN IV nausea and vomiting Last administered on 01/20/17 01:12; Admin Dose 10 MG; Start 01/14/17 at 02:30 Trimethobenzamide HCl 200 mg 200 mg Q6H PRN IM NAUSEA AND/OR VOMITING; Start 01/14/17 at 12:00 Ondansetron HCl/ Sodium Chloride (Zofran Inj/NS) 54 ml @ 216 mls/hr Q6H PRN IV NAUSEA AND/OR VOMITING Last administered on 01/15/17 20:32; Admin Dose 216 MLS/HR; Start 01/14/17 at 12:00 Hydralazine HCl (Apresoline) 10 mg Q4H PRN IV ELEVATED BLOOD PRESSURE Last administered on 01/22/17 01:54; Admin Dose 10 MG; Start 01/17/17 at 23:00 Carvedilol (Coreg) 25 mg BID PO Last administered on 01/23/17 10:21; Admin Dose 25 MG; Start 01/18/17 at 21:00 Nifedipine (Procardia Xl) 60 mg HS PO Last administered on 01/22/17 22:35; Admin Dose 60 MG; Start 01/20/17 at 21:00 Apixaban (Eliquis) 10 mg BID PO Last administered on 01/23/17 10:24; Admin Dose 10 MG; Start 01/23/17 at 10:00; Stop 01/29/17 at 21:00 Apixaban (Eliquis) 5 mg BID PO ; Start 01/30/17 at 09:00 Oxycodone HCl (Roxicodone) 5 mg NOW PO Last administered on 01/23/17 11:20; Admin Dose 5 MG; Start 01/23/17 at 11:15; Stop 01/23/17 at 23:00 MICHAEL LEYVA MD Jan 23, 2017 12:46
--- NOTE | 2017-01-23 12:47 | CONS ---
Date/Time of Note Date/Time of Note DATE: 01/23/17 TIME: 12:44 Assessment/Plan Assessment/Plan Chief Complaint/Hosp Course IMPRESSION: 1. Preoperative evaluation prior to placement of a peritoneal dialysis catheter.-negative trop x 2/no change on serial ecg's/Nl EF by most recent echo during last admission with no contraindicated valve lesions. Thus ok to proceed to OR for placement of PD catheter at moderate CV risk without further noninvasive evaluation. Now post-op s/p PD catheter and today tunneled cathplacement and removal of femoral catheter 2. Hypertension-labile 3. Left lower extremity deep venous thrombosis. 4. Anemia-s/p transfusion 5. Prior failed chest wall catheters. 6. s/p PD catheter and illiac venoplasty 7. Lethargy-secondary to ? oversedation Recc: -Continue coreg/procardia/clonidin and follow BP clsoely -Continue asa -HD for volume removal -Now on eliquis Problems: Consultation Date/Type/Reason Admit Date/Time Jan 05, 2017 at 14:32 Initial Consult Date 01/04/2017 Type of Consultation: cardiology Reason for Consultation Pre-op/HTN Referring Provider: BHARAT BLACK MD Exam/Review of Systems Vital Signs Vitals Vital Signs Date Time Temp Pulse Resp B/P Pulse Ox O2 Delivery O2 Flow Rate FiO2 01/23/17 09:30 97.9 76 16 150/87 100 01/23/17 08:38 Room Air Intake and Output 01/22/17 01/22/17 01/23/17 15:00 23:00 07:00 Intake Total 780 ml 1190.00 ml 627.5 ml Output Total 2 ml Balance 780 ml 1190.00 ml 625.5 ml Exam Review of Systems: CONSTITUTIONAL: No fevers, chills. PULMONARY: No sob CARDIOVASCULAR: No chest pain/palpitations GASTROINTESTINAL: No nausea/vomiting. GENITOURINARY: No hematuria/dysuria. MUSCULOSKELETAL: No myagias/arthalgias. PSYCHIATRIC: The patient denies depression. NEUROLOGIC: No weakness Constitutional: other (sleeping) Psych: no complaints Head: normocephalic ENMT: mucosa pink and moist Neck: jvd (9 cm water), supple Respiratory: diminished breath sounds (at bases/B) Cardiovascular: regular rate and rhythm Gastrointestinal: non-tender, soft Musculoskeletal: muscle weakness (generalized) Extremities: pitting pedal edema (Bilateral L>R) Neurological: other (No focal deficits) Results Result Diagram: 01/20/17 0456 01/23/17 0701 Results 24 hrs Laboratory Tests Test 01/23/17 05:34 01/23/17 07:01 Activated Partial Thromboplast Time 114.9 *H Potassium Level 5.1 Medications Medications Current Medications Acetaminophen (Tylenol Tab) 650 mg Q6H PRN PO PAIN LEVEL 1-3 OR FEVER; Start 01/02/17 at 23:00 Docusate Sodium (Colace) 100 mg Q12H PRN PO CONSTIPATION Last administered on 01/17/17 07:58; Admin Dose 100 MG; Start 01/02/17 at 23:00 Bisacodyl (Dulcolax) 5 mg DAILY PRN PO CONSTIPATION Last administered on 07:59; Admin Dose 5 MG; Start 01/02/17 at 23:00 Aspirin (Aspirin) 81 mg DAILY PO Last administered on 01/23/17 10:16; Admin Dose 81 MG; Start 01/03/17 at 09:00 Clonidine (Catapres) 0.2 mg BID PO Last administered on 01/23/17 10:21; Admin Dose 0.2 MG; Start 01/03/17 at 09:00 Folic Acid (Folic Acid) 1 mg DAILY PO Last administered on 01/23/17 10:18; Admin Dose 1 MG; Start 01/03/17 at 09:00 Hydralazine HCl (Apresoline) 50 mg Q12 PRN PO FOR SBP ABOVE 170 Last administered on 01/19/17 10:47; Admin Dose 50 MG; Start 01/02/17 at 23:00 Labetalol HCl (Normodyne) 100 mg BID PO ; Start 01/03/17 at 09:00; Status Future Hold Multivit/Ca Carb/ B Cmplx/FA/Prenat (Sommer-Samantha) 1 tab DAILY PO Last administered on 01/23/17 10:19; Admin Dose 1 TAB; Start 01/03/17 at 09:00 Nifedipine (Procardia Xl) 60 mg DAILY PO Last administered on 01/23/17 10:18 ; Admin Dose 60 MG; Start 01/03/17 at 09:00 Metoclopramide HCl (Reglan) 10 mg Q6H PRN IV nausea and vomiting Last administered on 01/20/17 01:12; Admin Dose 10 MG; Start 01/14/17 at 02:30 Trimethobenzamide HCl 200 mg 200 mg Q6H PRN IM NAUSEA AND/OR VOMITING; Start 01/14/17 at 12:00 Ondansetron HCl/ Sodium Chloride (Zofran Inj/NS) 54 ml @ 216 mls/hr Q6H PRN IV NAUSEA AND/OR VOMITING Last administered on 01/15/17 20:32; Admin Dose 216 MLS/HR; Start 01/14/17 at 12:00 Hydralazine HCl (Apresoline) 10 mg Q4H PRN IV ELEVATED BLOOD PRESSURE Last administered on 01/22/17 01:54; Admin Dose 10 MG; Start 01/17/17 at 23:00 Carvedilol (Coreg) 25 mg BID PO Last administered on 01/23/17 10:21; Admin Dose 25 MG; Start 01/18/17 at 21:00 Nifedipine (Procardia Xl) 60 mg HS PO Last administered on 01/22/17 22:35; Admin Dose 60 MG; Start 01/20/17 at 21:00 Apixaban (Eliquis) 10 mg BID PO Last administered on 01/23/17 10:24; Admin Dose 10 MG; Start 01/23/17 at 10:00; Stop 01/29/17 at 21:00 Apixaban (Eliquis) 5 mg BID PO ; Start 01/30/17 at 09:00 Oxycodone HCl (Roxicodone) 5 mg NOW PO Last administered on 01/23/17 11:20; Admin Dose 5 MG; Start 01/23/17 at 11:15; Stop 01/23/17 at 23:00 ETHAN MCKINLEY Jan 23, 2017 12:47
--- NOTE | 2017-01-23 14:40 | RADRPT ---
PROCEDURE: Intraoperative imaging of the abdomen and pelvis with fluoroscopy. CLINICAL INDICATION: Line placement. Intraoperative. TECHNIQUE: Images of the abdomen and pelvis were obtained in the operating room with an image inte nsifier. No radiologist was in attendance. Fluoroscopy time is 0.3 minutes and 3 images were obtai gerardo. COMPARISON: No prior study is available for comparison. FINDINGS: Images demonstrate placement of a tunneled dialysis catheter via the right femoral region with the t ip in the inferior cava/right atrium junction. IMPRESSION: 1. Intraoperative imaging of the abdomen and pelvis. RPTAT: QQ .Qasim Watkins MD, MD Date Time Electronically viewed and signed by .Qasim Watkins MD, MD on 01/23/2017 14:40 .R/
--- NOTE | 2017-01-23 15:38 | DS ---
Date/Time of Note Date/Time of Note DATE: 01/23/17 TIME: 15:38 Discharge Summary Admission/Discharge Info Admit Date/Time Jan 05, 2017 at 14:32 Discharge Date/Time Jan 23, 2017 at 13:15 Patient Condition: Stable Hospital Course Patient is a 31-year-old -[place] female who underwent an extensive stay here at [facility]. Patient stated she wanted to go home as soon as she got a permacath on. Patient was spoken to by myself, it field technician, lead vendor quality supervisor, multiple staff members stating that she would need dialysis set up before she can leave, however patient eloped and stated she would take care of her own needs. Staff followed her outside the hospital and continue to attempt to keep her inpatient, however patient refused. Documentation was done. It is of note that patient's PermCath was not removed prior to elopement as patient did not allow. Home Meds Active Scripts Apixaban* (Eliquis*) 2.5 Mg Tablet, 2.5 MG PO BID for 30 Days, #60 TAB 2 Refills Prov:BHARAT BLACK MD 12/23/16 Folic Acid* (Folic Acid*) 1 Mg Tablet, 1 MG PO DAILY for 30 Days, #30 TAB Prov:BHARAT BLACK MD 12/23/16 Multivit/Ca Carb/B Cmplx/Fa* (Sommer-Samantha*) 1 Tab Tab, 1 TAB PO DAILY for 30 Days , #30 TAB Prov:BHARAT BLACK MD 12/23/16 Cefazolin Sod* (Ancef* 2Gm/D5W (PMX)) 2 Gm/50 Ml Iv.soln., 2 GM IVPB AFTER DIALYSIS for 14 Days, EA Prov:BHARAT BLACK MD 12/22/16 Reported Medications Labetalol Hcl* (Labetalol Hcl*) 100 Mg Tablet, 100 MG PO BID, TAB 12/07/16 Sevelamer Hcl* (Renagel*) 800 Mg Tablet, 800 MG PO WITH MEALS, TAB 12/07/16 Aspirin* (Aspirin* Chew) 81 Mg Tab.chew, 81 MG PO DAILY, TAB.CHEW 12/07/16 Topiramate* (Topamax*) 25 Mg Cap.sprink, 25 MG PO BID, CAP 03/25/16 Carvedilol* (Coreg*) 12.5 Mg Tablet, 12.5 MG PO BID, #60 TAB 03/25/16 Nifedipine* (Nifedipine ER*) 60 Mg Tablet.sa, 60 MG PO DAILY, TAB.SA 01/08/16 Furosemide* (Lasix*) 20 Mg Tablet, 20 MG PO DAILY, TAB 01/08/16 Hydralazine Hcl* (Hydralazine Hcl*) 50 Mg Tab, 50 MG PO Q12 Y for HYPERTENSION, #60 TAB 01/08/16 Clonidine Hcl* (Clonidine Hcl*) 0.2 Mg Tablet, 0.2 MG PO BID, TAB 01/08/16 Follow-up Plan Please take your medications as prescribed. Please follow-up with her regular doctor in the clinic in the next 1 week. Primary Care Provider Edward Smith MD Time spent on discharge: > 30 minutes Pending Labs Laboratory Tests Test 01/23/17 05:34 01/23/17 07:01 Activated Partial Thromboplast Time 114.9Sec (25.0-35.0) Potassium Level 5.1mmol/L (3.5-5.1) YANNI OTT Jan 23, 2017 15:38
[2017-01-30] MEDS ORDERED: APIXABAN 5 MG TABLET PO SCH (09:00)
== END 2017-01-23 13:15 | disposition left against medical advice (07) | DRG 252 ==
LOC: E/R 16:23 → MS2 22:09 → EEVIPCON 01-05 14:32 → OBSVTOIN 01-05 14:32 → ICU 01-14 15:57 → TEL 01-16 13:10 → MS2 01-20 14:30
PROVIDERS: ADMIT Family Medicine; ATTEND Family Medicine
PROC: 067D3ZZ Dilation of Left Common Iliac Vein, Percutaneous Approach (ICD-10-PCS; 2017-01-09)
PROC: 067G3ZZ Dilation of Left External Iliac Vein, Percutaneous Approach (ICD-10-PCS; 2017-01-09)
PROC: 067N3ZZ Dilation of Left Femoral Vein, Percutaneous Approach (ICD-10-PCS; 2017-01-09)
PROC: 02PYX3Z Removal of Infusion Device from Great Vessel, External Approach (ICD-10-PCS; 2017-01-09)
PROC: 067N3ZZ Dilation of Left Femoral Vein, Percutaneous Approach (ICD-10-PCS; principal; 2017-01-09 15:00)
PROC: 06HY33Z Insertion of Infusion Device into Lower Vein, Percutaneous Approach (ICD-10-PCS; 2017-01-14)
PROC: 5A1D70Z Performance of Urinary Filtration, Intermittent, Less than 6 Hours Per Day (ICD-10-PCS; 2017-01-14)
PROC: 06H033Z Insertion of Infusion Device into Inferior Vena Cava, Percutaneous Approach (ICD-10-PCS; 2017-01-23)
PROC: 0JH83XZ Insertion of Tunneled Vascular Access Device into Abdomen Subcutaneous Tissue and Fascia, Percutaneous Approach (ICD-10-PCS; 2017-01-23)
DX: I82.412 Acute embolism and thrombosis of left femoral vein (principal); N18.6 End stage renal disease; G93.40 Encephalopathy, unspecified; I12.0 Hypertensive chronic kidney disease with stage 5 chronic kidney disease or end stage renal disease; I47.1 Supraventricular tachycardia; I87.1 Compression of vein; I16.1 Hypertensive emergency; D64.9 Anemia, unspecified; I80.02 Phlebitis and thrombophlebitis of superficial vessels of left lower extremity; E87.5 Hyperkalemia; I82.522 Chronic embolism and thrombosis of left iliac vein; G89.29 Other chronic pain
CPT/HCPCS: 36415; 36430; 70450; 70551; 71010; 75716; 75984; 80048; 80053; 80307; 82550; 82553; 82962; 83735; 84100; 84132; 84484; 84703; 85025; 85610; 85730; 86704; 86709; 86803; 86850; 86870; 86900; 86901; 86920; 87081; 87340; 90935; 90945; 93005; 93971; 96374; 96375; 97162; 97164; C1752; G0378; J0360; J0610; J0690; J1100; J1170; J1200; J1644; J1815; J1885; J2060; J2150; J2250; J2270; J2310; J2405; J2765; J3010; J7030; J7040; P9016; Q9967

== ENCOUNTER 2017-02-10 14:41 | Emergency (ER) | END 2017-02-10 20:45 | disposition left against medical advice (07) ==

== ENCOUNTER 2017-02-12 20:36 | Inpatient (IN) | END 2017-02-17 19:15 | disposition left against medical advice (07) | DRG 314 ==

== ENCOUNTER 2017-05-12 02:36 | Inpatient (IN) | END 2017-05-12 09:00 | disposition left against medical advice (07) | DRG 304 ==

== ENCOUNTER 2017-06-29 11:48 | Inpatient (IN) | END 2017-07-03 12:00 | disposition left against medical advice (07) | DRG 640 ==

== ENCOUNTER 2017-07-09 08:22 | Inpatient (IN) | END 2017-07-14 17:50 | disposition left against medical advice (07) | DRG 682 ==

== ENCOUNTER 2017-07-18 04:33 | Inpatient (IN) | END 2017-07-28 12:45 | disposition left against medical advice (07) | DRG 640 ==

== ENCOUNTER 2017-08-02 03:22 | Inpatient (IN) | END 2017-08-07 16:45 | disposition left against medical advice (07) | DRG 291 ==

== ENCOUNTER 2017-08-10 09:36 | Inpatient (IN) | END 2017-08-12 18:31 | disposition left against medical advice (07) | DRG 640 ==

== ENCOUNTER 2017-08-19 05:21 | Inpatient (IN) | END 2017-08-22 12:05 | disposition left against medical advice (07) | DRG 640 ==

== ENCOUNTER 2017-11-08 02:42 | Inpatient (IN) | END 2017-11-12 19:30 | disposition home or self-care (01) | DRG 640 ==